=== PATIENT | male | born 1965 | race Caucasian/White ===

== ENCOUNTER 2016-06-10 00:46 | Inpatient (IN) | payer OTHER ==
[2016-06-10] VITALS (52 sets, daily range): BP systolic 57–153; BP diastolic 25–89; PULSE 92–129; RESP 11–24; O2SAT 93–100
[~2016-06-10] VITALS: Ht 182.9 cm; Wt 143.2 kg
[2016-06-10] MEDS: 0.9% Sodium Chloride 1,000 ML IV SCH ×3 (01:06→12:08)
[2016-06-10] MEDS ORDERED: Ondansetron 2 mg/mL 2 mL Inj IVPUSH PRN ×5 (01:10→18:40)
[2016-06-10] MEDS ORDERED: HYDROmorphone 1 mg/mL Inj IVPUSH PRN ×4 (01:10→15:45)
[2016-06-10] MEDS ORDERED: Alum-Mag Hydrox-Simeth 30 mL Suspension PO PRN ×2 (01:10→18:40)
[2016-06-10] MEDS ORDERED: Polyethylene Glycol (PEG) 17 Gm Powder PO PRN ×3 (01:10→18:40)
[2016-06-10] MEDS ORDERED: Lidocaine 4% 4 mL Laryng-O-Jet Top Soln MUC_MEMBRM PRN (01:20)
[2016-06-10] MEDS ORDERED: Sodium Chloride LOK Flush 10 mL Syringe ONE (01:29)
[2016-06-10] MEDS ORDERED: Sodium Bicarb 1 mEq/mL 50 mL Inj ONE (01:29)
[2016-06-10] MEDS: Sodium Bicarb(50 mEq) 8.4% Inj 150 MEQ in Dextrose 5% 1,000 ML IV SCH (01:35)
[2016-06-10 01:37] LABS: BASOPHILS % (AUTO) 0.9 % (0-3); EOSINOPHILS % (AUTO) 4.9 % (0-5); MONOCYTES % (AUTO) 8.2 % (4-12); Mean Corpuscular Hemoglobin 30.2 pg (27.0-35.0); Mean Corpuscular Volume 85.3 fL (81-100); NEUTROPHILS % (AUTO) 56.9 % (40-74); Platelet Count 231 bil/L (150-400)
[2016-06-10] MEDS ORDERED: Lidocaine 2% 6mL Topical Jelly MUC_MEMBRM PRN (01:45)
[2016-06-10 02:02] LABS: INR 0.95 ratio
[2016-06-10] MEDS ORDERED: Glucose 40% Oral Gel 15 Gm Tube PO PRN (02:20)
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
[2016-06-10] MEDS ORDERED: HYDROmorphone 1 mg/mL Inj IVPUSH SCH (05:10)
[2016-06-10] MEDS ORDERED: LISI40TA PO (06:40)
[2016-06-10] MEDS ORDERED: OXYC-466 PO (06:40)
[2016-06-10] MEDS ORDERED: INSU100I25 SQ (06:40)
[2016-06-10] MEDS ORDERED: NPR500T PO (06:40)
[2016-06-10] MEDS ORDERED: ATOR20TA65 PO (06:40)
[2016-06-10] MEDS ORDERED: GABA-502 PO (06:40)
[2016-06-10] MEDS ORDERED: FENO160T14 PO (06:40)
[2016-06-10] MEDS ORDERED: TAMS0.4C98 PO (06:40)
--- NOTE | 2016-06-10 07:31 | NUR ---
Admit Pt arrived to [facility] 250-1 at 0040, pt arrived in severe pain, but able to walk to scale and to bed w/o any assist. Pt is a&ox3, coping well with the severe pain r/t clotted catheter.
--- NOTE | 2016-06-10 07:32 | NUR ---
Transfer/CBI Totals Pt moved to 238-1 r/t severe pain and needs at 0100, catheter finally patent and now draining well with less clots. Catheter continued to be patent for several hours, final output was 13,300ml, input was 12,000ml. Net urine was 1300ml. Pt pain now well managed w/ dilaudid. Placed cpox for safety.
[2016-06-10] MEDS: HYDROmorphone 1 mg/mL Inj IVPUSH SCH ×3 (07:33→15:25)
[2016-06-10] MEDS: Insulin LISPRO 300 Unit/3 mL Inj SUBQ SCH ×3 (08:00→17:30)
[2016-06-10 08:44] LABS: BASOPHILS % (AUTO) 0.6 % (0-3); MONOCYTES % (AUTO) 8.2 % (4-12); Mean Corpuscular Hemoglobin 29.7 pg (27.0-35.0); Mean Corpuscular Volume 87.3 fL (81-100); NEUTROPHILS % (AUTO) 53.4 % (40-74); Platelet Count 175 bil/L (150-400)
[2016-06-10 09:01] LABS: Unsaturated Iron Binding 207.4 ug/dL
[2016-06-10] MEDS: Famotidine Inj 20 MG in IV Premix 1 EACH IV SCH ×2 (09:12→20:30)
[2016-06-10] MEDS ORDERED: Succinylcholine Chloride 20 mg/mL 5 mL Inj ONE (13:45)
[2016-06-10] MEDS ORDERED: Ondansetron 2 mg/mL 2 mL Inj ONE (13:45)
[2016-06-10] MEDS ORDERED: fentaNYL-PF 50 mCg/mL 2 mL Inj ONE (13:45)
[2016-06-10] MEDS ORDERED: Rocuronium 10 mg/mL 5 mL Inj ONE (13:45)
[2016-06-10] MEDS ORDERED: Propofol 10,000 mCg/mL 20 mL Inj ONE (13:45)
[2016-06-10] MEDS ORDERED: Lidocaine PF 1% 30 mL Inj ONE (13:45)
[2016-06-10] MEDS ORDERED: Phenylephrine/NS 100 mCg/mL 10 mL Syringe IVPUSH ONE (13:45)
--- NOTE | 2016-06-10 14:31 | PCM.HPANE ---
Patient Data Surgeon Admitting Provider:Denis Hines MD Attending Provider:Denis Hines MD Primary Care Physician:Fausto Salvador MD Other Provider: Reason for Visit Bladder Mass Ht/WT & BMI Height (Feet): 6 Height (Inches): 0.00 Weight (Kilograms): 134.600 Body Mass Index 40.19 Allergies Coded Allergies: No Known Allergies (Verified Allergy, Unknown, 06/10/16) Past Anesthesia History Anesthesia History: Denies:: Anesthesia Reactions Diabetes History Hx Diabetes?: Yes Current Bedside Blood Glucose: 163 Medications Reported Medications Tamsulosin (Flomax)0.4 Mg Capsule0.4 Mg PO DAILY Ref 0 06/10/16 oxyCODONE-Acetaminophen 10-325 mg 1 Each Tablet1 Tablet PO PRN For Pain Ref 0 06/10/16 Naproxen 500 Mg Clb891 Mg PO BID PRN For Pain Ref 0 06/10/16 Lisinopril 40 Mg Ebmptt86 Mg PO DAILY 30 Days Ref 0 06/10/16 Insulin Detemir (Levemir Flextouch)100 Unit/1 Ml Insuln.[id number] Unit SQ 06/10/16 Gabapentin 300 Mg Fligwyx838 Mg PO DAILY Ref 0 06/10/16 Fenofibrate 160 Mg Mofhjl345 Mg PO DAILY Ref 0 06/10/16 Atorvastatin Calcium 20 Mg Mgafoa96 Mg PO DAILY Ref 0 06/10/16 History History of ENT Problems?: No Hx of Heart Problems?: No Cardiovascular History: Denies:: Hypertension Hx of Respiratory Problem?: Yes Respiratory History: Positive for:: Asthma Hx Neurologic Problems?: Yes Neurological History: Positive for:: Headaches (migraines from high pitched noise) Hx of GI Problems?: No Hx of Problems?: No Male Hx: Denies:: Prostate Problems Hx Musculoskeletal Problems?: No Hx of Psycho/Social Problems?: No Psycho Social History: Denies:: Anxiety Hx Depression Hx Surgeries?: Yes (shoulder surgery 11/28 resection) Hx Any Other Health Problems?: Yes History Blood Transfusions: Positive for:: Accept Blood Products? 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 Category 1B: Patient has history of documented sleep apnea, and HAS received any narcotic , sedative or anesthesia administration during this stay Category 2: Patient has SUSPECTED Obstructive Sleep Apnea, and HAS received any narcotic , sedative or anesthesia administration during this stay. Category 3: Patient has SUSPECTED Obstructive Sleep Apnea and HAS NOT received narcotic, sedative or anesthesia administration during this stay. Category 4: Outpatient in Procedural Areas with known sleep apnea or who screen positive for High Risk via the STOP/BANG questionnaire. Exam Exam General Appearance: Alert, Oriented X3, Cooperative, Moderate Distress HEENT/AIRWAY: MP 4, Neck Movement (20% expected ROM), Mouth Opening (Small) Lungs: Clear to Auscultation Heart: Exam Unremarkable Meds/Labs/Diagnostics Admission Meds Current Medications Sodium Chloride 1,000 ml @ 100 mls/hr Q10H IV Last administered on 06/10/16 12:08; Start 06/10/16 at 01:06 Famotidine/Sodium Chloride/Premix (Pepcid Inj/IV Premix) 50 ml @ 100 mls/hr Q12 IV Last administered on 06/10/16 09:12; Start 06/10/16 at 08:30 Insulin Human Lispro (HumaLOG Insulin Inj) Nutritional Dose to be given pr... [facility] SUBQ Last administered on 06/10/16 12:08; Start 06/10/16 at 08:00 Hydromorphone HCl (Dilaudid Inj) 1 mg Q4H IVPUSH Last administered on 04:06; Start 06/10/16 at 05:10; Stop 06/10/16 at 05:10; Status DC Hydromorphone HCl (Dilaudid Inj) 1 mg Q4H IVPUSH Last administered on 12:12; Start 06/10/16 at 08:00 Bedside Blood Glucose: 163 Labs Test 06/10/16 01:30 06/10/16 07:22 06/10/16 12:37 Prothrombin Time 10.1sec (8.1-12.5) Prothromb Time International Ratio 0.95ratio Activated Partial Thromboplast Time 26.2sec (22.8-33.0) White Blood Count 6.2th/mm3 (3.8-10.1) Red Blood Count 3.70mil/mm3 (4.40-5.80) Mean Corpuscular Volume 87.3fL (81-100) Mean Corpuscular Hemoglobin 29.7pg (27.0-35.0) Mean Corpuscular Hemoglobin Concent 34.1% (32.0-37.0) Red Cell Distribution Width 12.8% (12.3-15.4) Platelet Count 175bil/L (150-400) Neutrophils (%) (Auto) 53.4% (40-74) Lymphocytes (%) (Auto) 32.5% (14-46) Monocytes (%) (Auto) 8.2% (4-12) Eosinophils (%) (Auto) 5.0% (0-5) Basophils (%) (Auto) 0.6% (0-3) Reticulocyte Count,Calculated 1.5% (0.6-2.6) Sodium Level 136mEq/L (134-144) Potassium Level 4.0mEq/L (3.5-5.2) Chloride Level 100mEq/L (97-108) Carbon Dioxide Level 21mmol/L (18-29) Blood Urea Nitrogen 16mg/dL (6-24) Creatinine 0.68mg/dL (0.76-1.27) Estimat Glomerular Filtration Rate 131mL/min (>59) Glucose Level 170mg/dL (60-99) Calcium Level 8.5mg/dL (8.5-10.1) Iron Level 58ug/dL (35-150) Total Iron Binding Capacity 265ug/dL (250-450) Percent Iron Saturation 22%sat (15-50) Unsaturated Iron Binding 207.4ug/dL Ferritin 257ng/mL (30-400) Total Bilirubin 0.5mg/dL (0.0-1.2) Aspartate Amino Transf (AST/SGOT) 66U/L (0-50) Alanine Aminotransferase (ALT/SGPT) 92U/L (0-44) Alkaline Phosphatase 136U/L (25-150) Total Protein 5.9g/dL (6.4-8.4) Albumin 3.3g/dL (3.4-5.0) Hemoglobin 10.8g/dL (13.8-17.2) Hematocrit 31.2% (41.0-50.0) Plan Impression Patient chart reviewed, patient interviewed and anesthestic plan with risks, benefits, and alternatives discussed, and informed consent obtained. ASA Physical Status: ASA3 Severe Disease Anesthetic Support Modalities: [place] Scope Anesthetic Plan: GA Bene/Risks/Altern/Consents: Yes HP Complete Prior to Induction: Yes Other Will do awake " look See " With [place] Scope and decide if to intubate awake or asleep. Khurram Almanza MD Jun 10, 2016 14:31
[2016-06-10] MEDS ORDERED: Lactated Ringer's 1,000 ML IV ONE ×4 (14:32→19:49)
--- NOTE | 2016-06-10 15:13 | NUR ---
to OR Pt taken in bed to OR. Report given to Ana STEVENS IV Addendum: 06/10/16 at 1523 by LISA HODGE RN 1430 pt had episode of bladder fullness and burning. flushed thakkar and able to evacuate 60 mls with dark red clots. continue with bladder irrigation. Pt then stood at bedside for about 10 minutes.
--- NOTE | 2016-06-10 15:24 | NUR ---
Social Work Note - Screening: D/A: The Pt is a 51 y/o male that was directly admitted under observation status from [facility] for a bladder mass. The Pts PCP is MD Fausto Salvador and his insurance is [employer]. EMR reviewed. SW met with the Pt to explain role and discuss discharge planning, telephone number written on white board. The Pt lives independently with his in [place]. The Pt does not have an Advanced Directive, declined paperwork. [facility] involved, [facility] to evaluate Pt 06/10. The Pt denies any needs at this time. SW to follow if needs arise. P: The Pt is not medically stable for discharge, currently being evaluated by [facility] for further medical treatment. The Pt denies any needs at this time. SW to follow if needs arise. Dianna Mulligan, FRESH WORK WRAPPER LAYER Flanging Roll Operator ANGEL Rangel
[2016-06-10] MEDS ORDERED: Lactated Ringer's 500 ML IV PRN (15:42)
[2016-06-10] MEDS ORDERED: Lactated Ringer's 1,000 ML IV SCH ×2 (15:42→17:18)
[2016-06-10] MEDS ORDERED: hydrALAZINE 20 mg/mL Inj IVPUSH PRN (15:45)
[2016-06-10] MEDS ORDERED: Atropine 0.4 mg/mL Inj IVPUSH PRN (15:45)
[2016-06-10] MEDS ORDERED: Labetalol 5 mg/mL 4 mL Inj IV PRN (15:45)
[2016-06-10] MEDS ORDERED: Dexamethasone 4 mg/mL Inj IVPUSH PRN (15:45)
[2016-06-10] MEDS ORDERED: Belladonna Alk-Opium 60 mg Rectal Suppository RECTAL ONE (15:54)
[2016-06-10] MEDS ORDERED: oxyCODONE-Acetamin 5-325 mg Tablet PO PRN (17:20)
[2016-06-10] MEDS ORDERED: MetoCLOpramide 5 mg/mL 2 mL Inj IVPUSH PRN ×2 (17:20→17:25)
[2016-06-10] MEDS ORDERED: Belladonna Alk-Opium 60 mg Rectal Suppository RECTAL PRN (17:20)
[2016-06-10] MEDS ORDERED: diphenhydrAMINE 25 mg Capsule PO PRN (17:20)
[2016-06-10] MEDS: fentaNYL-PF 50 mCg/mL 2 mL Inj IVPUSH PRN ×2 (17:22→17:38)
--- NOTE | 2016-06-10 17:24 | PCM.ANEP1 ---
Post Anesthesia Phase 1 PACU Phase 1 Assessment Vital Signs Vital Signs Date Time Temp Pulse Resp B/P Pulse Ox O2 Delivery O2 Flow Rate FiO2 06/10/16 14:57 36.5 94 18 101/68 96 Room Air Anesthetic Administered: GA Level of Alertness: Awake, talking FRITZ's with Equal Strength: Yes Pain: Yes Pain Scale Score: 8 Nausea or Vomiting: No Oxygen Delivery: Room Air Lungs: Normal Air Movement Khurram Almanza MD Jun 10, 2016 17:24
[2016-06-10] MEDS ORDERED: HYDROmorphone PCA 0.2 mg/mL 30 mL Inj IV PRN (17:25)
--- NOTE | 2016-06-10 18:02 | CONS ---
[address] [address] CONSULTATION REPORT PATIENT: DIANA CROWELL : 1965 MR#: [id number] ADMIT: 06/10/2016 JOB ID: [id number] DATE OF SERVICE: 06/10/2016 REASON FOR CONSULTATION: Bladder mass, gross hematuria with clot retention. HISTORY OF PRESENT ILLNESS: I was contacted last night by the emergency department of [facility] regarding a gentleman who had been in and out of the emergency department with clot retention and obstructing catheters for over 48 hours. Transfer to [facility] was recommended with admission on the hospitalist with consult by Urology. The patient began to have gross hematuria approximately 72 hours ago. He is a nonsmoker. It began with bright red blood with clots and some dysuria. Multiple urinalyses showed hematuria but no sign of infection. He was, however, started on ciprofloxacin. A noncontrast CT scan was performed showing bilateral hydronephrosis with a large bladder mass which was assumed to be blood clot. PAST MEDICAL HISTORY: Reveals insulin-dependent diabetes and hyperlipidemia. He has had some left shoulder surgery. SOCIAL/FAMILY HISTORY: See admission note. EXAMINATION: An obese 51-year-old male in no acute distress. Chest is clear. Normal respiratory effort. Cardiovascular: Sinus rhythm. No murmurs. Abdomen is obese, soft, and nontender. No masses. There is a Weathers catheter in place draining lightly sanguinous urine. IMPRESSION: Gross hematuria with clot retention. Probable bladder cancer, although he has nothing in the way of risk factors. I will plan on taking him to the operating room later today for cystoscopy, declotting, and transurethral resection.
--- NOTE | 2016-06-10 18:20 | NUR ---
Report notified that pt will transfer to CCU following OR procedure. this RN called report to Yamini Yanes RN as pt will on overlock elastic attacher. Belongings brought to this room.
[2016-06-10] MEDS ORDERED: 0.9% Sodium Chloride 1,000 ML IV ONE (18:30)
[2016-06-10] MEDS: EPHEDrine Sulfate 50 mg/mL Inj IVPUSH PRN ×2 (18:35→18:52)
[2016-06-10] MEDS: Lactated Ringer's 1,000 ML IV SCH (18:39)
[2016-06-10] MEDS ORDERED: Senna-Docusate 8.6-50 mg Tablet PO PRN (18:40)
[2016-06-10] MEDS: Phenylephrine 10,000 mCg/mL Inj IVPUSH PRN ×4 (18:55→19:06)
[2016-06-10] MEDS: Phenylephrine Inj 20,000 MCG in 0.9% Sodium Chloride 248 ML IV SCH (19:05)
--- NOTE | 2016-06-10 19:53 | OP ---
[address] [address] OPERATIVE REPORT PATIENT: DIANA CROWELL : 1965 MR#: [id number] ADMIT: 06/10/2016 JOB ID: [id number] DATE OF SURGERY: 06/10/2016 SURGEON: Lizzy Curry MD PREOPERATIVE DIAGNOSIS(ES): 1. Gross hematuria. 2. Clot retention. 3. Bladder cancer. POSTOPERATIVE DIAGNOSIS(ES): 1. Gross hematuria. 2. Clot retention. 3. Bladder cancer. PROCEDURE: 1. Cystoscopy. 2. Declotting and transurethral resection of bladder tumor, large. ANESTHESIA: General anesthetic, Dr. Almanza. DESCRIPTION OF PROCEDURE: Under general anesthetic, the patient was placed in lithotomy position and genitalia prepped and draped in a sterile manner. The urethra was dilated to 30-Pashto with Pedro sounds. A 26-Pashto Benavidez-type resectoscope was introduced into the bladder. There was a large amount of clot in the bladder and the bladder was filled with papillary tumor, minimum dimension 10 cm. The tumor appeared to be arising mostly from the right side of the bladder. There was diffuse bleeding from multiple points on the tumor. Resection was begun at the left side of the tumor. The tumor appeared to be muscle invasive and had a significant mucinous component. After approximately 45 minutes of resecting, it was clear that I could not obtain a T0 resection. At this point, the chips were removed from the bladder and a roller ball cautery was used to achieve arterial hemostasis. There was still significant venous bleeding but no visible arterial bleeding. A 24-Pashto 3-way Weathers catheter was inserted into the bladder and attached to sorbitol irrigations. The patient tolerated the procedure well. The estimated blood loss was at least 300 cc. The patient left the operating room, with lightly sanguinous sorbitol irrigations. Upon extubation with the patient struggling, bladder irrigations became markedly more sanguinous with passage of several clots. The patient will be typed and crossed. Serial hematocrits will be obtained with appropriate transfusion. I will plan on him being seen by Medical Oncology as I strongly suspect this will be a high-grade muscle invasive bladder cancer.
[2016-06-10 20:25] LABS: BASOPHILS % (AUTO) 0.5 % (0-3); EOSINOPHILS % (AUTO) 0.7 % (0-5); MONOCYTES % (AUTO) 6.8 % (4-12); Mean Corpuscular Hemoglobin 29.7 pg (27.0-35.0); Mean Corpuscular Volume 87.2 fL (81-100); NEUTROPHILS % (AUTO) 81.7 % (40-74); Platelet Count 310 bil/L (150-400)
[2016-06-10] MEDS: fentaNYL 2,500 mCg/250 mL 2,500 MCG in IV Premix 1 EACH IV SCH (20:38)
[2016-06-10] MEDS: Propofol Inj 1,000,000 MCG in IV Premix 1 EACH IV SCH (20:38)
[2016-06-10 20:40] LABS: BASOPHILS % (AUTO) 0.7 % (0-3); EOSINOPHILS % (AUTO) 0.6 % (0-5); Mean Corpuscular Hemoglobin 29.4 pg (27.0-35.0); Mean Corpuscular Volume 87.5 fL (81-100); NEUTROPHILS % (AUTO) 77.6 % (40-74); Platelet Count 323 bil/L (150-400)
[2016-06-10] MEDS ORDERED: Norepineph 8,000 mCg/250 mL NS 8,000 MCG in IV Premix 1 EACH IV SCH (20:41)
[2016-06-10] MEDS ORDERED: Propofol 10,000 mCg/mL 100 mL Inj ONE (20:49)
[2016-06-10 20:52] LABS: Magnesium 1.5 mg/dL (1.6-2.6)
[2016-06-10 20:55] LABS: Creatine Kinase 172 U/L (21-232)
[2016-06-10 20:59] LABS: INR 1.05 ratio
[2016-06-10] MEDS ORDERED: Insulin GLARgine 100 Unit/mL Syringe SUBQ SCH (21:00)
--- NOTE | 2016-06-10 21:10 | DRSVH ---
PROCEDURE: X-RAY CHEST ONE VIEW, PORTABLE ([id number]) INDICATIONS: confirm line placement TECHNIQUE: One view of the chest was acquired. COMPARISON: None. FINDINGS: Patient is markedly rotated. Surgical changes and devices: A central venous catheter is projected over the expected region of the SVC. However, the patient is markedly rotated, limiting evaluation. Lungs and pleura: No pleural effusions or pneumothorax. Lungs are clear. Mediastinum: Mediastinal contours are poorly characterized on this rotated view. Bones and chest wall: No suspicious bony lesions. Overlying soft tissues appear unremarkable. IMPRESSION: 1. Markedly rotated patient. Central venous catheter is projected over the expected region of the SVC . However, repeat study without rotation is recommended. Dictated by: Lois Watt M.D. on 06/10/2016 at 21:07 Approved by: Lois Watt M.D. on 06/10/2016 at 21:09
[2016-06-10] MEDS ORDERED: Heparin 1,000 Unit/mL 10 mL Inj ONE ×2 (21:17→23:11)
[2016-06-10] MEDS ORDERED: 0.9% Sodium Chloride 1,000 ML ONE ×2 (21:17→23:11)
--- NOTE | 2016-06-10 21:21 | ABG ---
DateTimeAnalyzed 21:17:00 -_ pH ____7.208 - 7.350 7.450 pCO2 ___35.2__ -mmHg 35.0 45.0 pO2 489 -mmHg 69.0 116 HCO3- ___13.5__ -mmol/L 22.0 26.0 ABE __-13.4__ -mmol/L -2.0 2.0 tHb ___13.9__ -g/dL O2Hb ___98.0__ -% COHb ____0.5__ -% MetHb ____1.0__ -% sO2 ___99.5__ -% 25.0 FIO2 __100.0__ -% PEEP ____5.0__ -cmH2O Set_RR ___18.0__ -b/min Vt __500.0__ -L Drawn By MK - Date/Time Notified____ 21:21:00 -_ Spontaneous_RR ___18.0__ -b/min Oxygen Device 1 VENTILATOR - Notified By MK - Notified Whom sullenburger - B 756 -mmHg tO2 ___20.3__ -Vol% Enrico test N/A -
[2016-06-10 21:27] LABS: BASOPHILS % (AUTO) 0.7 % (0-3); EOSINOPHILS % (AUTO) 0.4 % (0-5); MONOCYTES % (AUTO) 8.5 % (4-12); Mean Corpuscular Hemoglobin 29.9 pg (27.0-35.0); Mean Corpuscular Volume 86.6 fL (81-100); NEUTROPHILS % (AUTO) 77.8 % (40-74); Platelet Count 261 bil/L (150-400)
[2016-06-10 21:43] LABS: INR 1.06 ratio
[2016-06-10] MEDS: Norepinephrine 8,000 mCg/250 mL D5W Premix IV SCH (22:05)
--- NOTE | 2016-06-10 23:04 | PCM.PNMED ---
Subjective Date of Service Jun 10, 2016 Subjective The patient was seen preoperatively and was in no apparent distress with continuous bladder irrigation in progress. He had no new complaints. Exam Vital Signs Vital Sign - Last Date Time Temp Pulse Resp B/P Pulse Ox O2 Delivery O2 Flow Rate FiO2 06/10/16 21:40 94/25 INTUBATED WITH BAGGING 06/10/16 21:25 127 100 06/10/16 20:15 35.7 06/10/16 19:40 18 06/10/16 18:20 4 Exam General: The patient was in no apparent distress lying supine with continuous bladder irrigation ongoing. HEENT: Head is atraumatic and normocephalic. Eyes: Pupils are equally round and reactive to light and accommodation. Extraocular muscles are intact. Sclera are white, anicteric. Subconjunctival mucosa is pink. Ears and nose are unremarkable. Oropharynx: There is no mucosal lesions, there is no thrush, there is no pharyngitis. Neck: Is supple, there are no nodes, or masses or tenderness. Chest: Is clear to auscultation and percussion. There are no rales, rhonchi, wheezes or rubs. Heart: Rate, rhythm is regular. There is no murmur, rub or gallop. Abdomen: Good bowel sounds are present. Abdomen is soft, nontender, no organomegaly or masses were appreciated. Extremities: Are symmetrical and well perfused. There is no edema, there is no cellulitis, no rash. Neurologic: There are no focal neurological deficits. Cranial nerves II through XII are intact. There are no sensory or motor deficits. Psychiatric: Patients mood is calm and shows no sign of agitation. Genital: A 3-way Weathers was in place for continuous bladder irrigation. Rectal: Deferred Lab and Diagnostics Result Diagram: 06/10/16211906/10/162119 X-Rays, CTs and MRIs PROCEDURE: X-RAY CHEST ONE VIEW, PORTABLE ([id number]) INDICATIONS: confirm line placement TECHNIQUE: One view of the chest was acquired. COMPARISON: None. FINDINGS: Patient is markedly rotated. Surgical changes and devices: A central venous catheter is projected over the expected region of the SVC. However, the patient is markedly rotated, limiting evaluation. Lungs and pleura: No pleural effusions or pneumothorax. Lungs are clear. Mediastinum: Mediastinal contours are poorly characterized on this rotated view. Bones and chest wall: No suspicious bony lesions. Overlying soft tissues appear unremarkable. IMPRESSION: 1. Markedly rotated patient. Central venous catheter is projected over the expected region of the SVC. However, repeat study without rotation is recommended. Dictated by: Lois Watt M.D. on 06/10/2016 at 21:07 Approved by: Lois Watt M.D. on 06/10/2016 at 21:09 Assessment & Plan Patient is a 51 y.o. 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 Past medical history of hyperlipidemia, DMII insulin dependent. Who presents from [facility], direct admit, for gross hematuria and dysuria. 1. Hematuria, acute - CT scan done at [facility] showed presence of right sided bladder mass 10x5.8 cm heterogeneous mass with punctate and peripheral calcifications, likely source of bleeding - Continue IVF hydration NS @ 100 mls.hr - CBC shows normocytic anemia Hgb 12.5 - CMP ordered, Elevated LFTs, elevated blood glucose - Trend H/H Q4 - Cross type and Match - UA with culture ordered - Urine EO's ordered r/o concurrent interstitial nephritis - Urology consulted from [facility], Dr. Curry, agrees with Admit and took the patient to surgery today and findings are as follows: "PREOPERATIVE DIAGNOSIS(ES): 1. Gross hematuria. 2. Clot retention. 3. Bladder cancer. POSTOPERATIVE DIAGNOSIS(ES): 1. Gross hematuria. 2. Clot retention. 3. Bladder cancer. PROCEDURE: 1. Cystoscopy. 2. Declotting and transurethral resection of bladder tumor, large." - He will have serial H&H monitoring and blood transfusions as needed. - Oncology will be consulted 2. Anemia, secondary to acute blood loss anemia - Source of loss is from Bladder mass and hematuria - Iron studies ordered to r/o other causes - Trend H/H as above 3. Transamnitis, chronicity unknown - Given patient BMI, history of DM, and fatty liver seen on CT, likely due to fatty liver disease - Continue to monitor - Repeat CMP as above Chronic Conditions Insulin dependent Type II DM - Patient's home dose of long acting insulin 65 units, Hold Home dose - Start 30 units Lantus HS - Med correctional scale ordered Pain Evaluation: Adequate Pain Control GI Prophylaxis: H2 leanna Resuscitation Status: CPR: Attempt Resuscitation Pancho Payne MD Jun 10, 2016 23:03
[2016-06-11] VITALS (39 sets, daily range): BP systolic 62–165; BP diastolic 38–83; PULSE 96–139; RESP 18–22; O2SAT 40–100
[2016-06-11] MEDS: Phenylephrine Inj 20,000 MCG in 0.9% Sodium Chloride 248 ML IV SCH ×5 (00:03→19:50)
[2016-06-11] MEDS ORDERED: 0.9% Sodium Chloride 500 ML ONE (00:21)
--- NOTE | 2016-06-11 01:55 | ABG ---
DateTimeAnalyzed 01:52:00 -_ pH ____7.110 - 7.350 7.450 pCO2 ___42.0__ -mmHg 35.0 45.0 pO2 169 -mmHg 69.0 116 HCO3- ___12.8__ -mmol/L 22.0 26.0 ABE __-15.9__ -mmol/L -2.0 2.0 tHb ___11.4__ -g/dL O2Hb ___96.8__ -% COHb ____0.6__ -% MetHb ____1.3__ -% sO2 ___98.7__ -% 25.0 FIO2 ___60.0__ -% PEEP ____5.0__ -cmH2O Set_RR ___18.0__ -b/min Vt __610.0__ -L Drawn By MK - Date/Time Notified____ 01:55:00 -_ Spontaneous_RR ___18.0__ -b/min Oxygen Device 1 VENTILATOR - Notified By MK - Notified Whom sullenburger - B 758 -mmHg tO2 ___15.9__ -Vol% Enrico test N/A -
--- NOTE | 2016-06-11 02:09 | PCM.ANEP2 ---
Post Anesthesia Evaluation ASA/CMS Post Anesthesia VS in Patient's Normal Range?: No (on vasopressor support) Resp Stable; Airway Patent?: No (intubated) CV Function & Hydration Stable: No Mental Status Recovered?: No (sedated) Chuck Gutierrez MD Jun 11, 2016 02:09
--- NOTE | 2016-06-11 02:09 | PCM.ANEP1 ---
Post Anesthesia Phase 1 PACU Phase 1 Assessment Vital Signs Vital Signs Date Time Temp Pulse Resp B/P Pulse Ox O2 Delivery O2 Flow Rate FiO2 06/11/16 01:38 133 83/47 99 60 06/10/16 21:40 94/25 INTUBATED WITH BAGGING 06/10/16 21:35 67/39 INTUBATED WITH BAGGING 06/10/16 21:30 78/46 INTUBATED WITH BAGGING 06/10/16 21:25 127 83/51 100 Mechanical Ventilator 06/10/16 21:20 121 108/65 100 Mechanical Ventilator 06/10/16 21:15 120 109/62 100 Mechanical Ventilator 06/10/16 21:10 120 118/70 100 Mechanical Ventilator 06/10/16 21:05 120 133/72 100 Mechanical Ventilator 06/10/16 21:00 122 132/63 100 Mechanical Ventilator 06/10/16 20:55 124 70/47 100 Mechanical Ventilator 06/10/16 20:50 119 93/44 100 Mechanical Ventilator 06/10/16 20:45 125 105/47 100 Mechanical Ventilator 06/10/16 20:40 124 150/72 100 Mechanical Ventilator 06/10/16 20:35 120 104/44 100 Mechanical Ventilator 06/10/16 20:30 117 100 Mechanical Ventilator 06/10/16 20:25 122 65/34 100 06/10/16 20:20 120 108/54 100 06/10/16 20:15 35.7 129 96/48 100 06/10/16 20:10 122 87/41 100 06/10/16 20:05 119 98/46 100 06/10/16 20:00 122 81/33 100 06/10/16 19:55 122 82/40 06/10/16 19:50 119 65/37 06/10/16 19:45 118 81/42 100 06/10/16 19:40 118 18 92/49 100 06/10/16 19:35 117 19 97/56 100 06/10/16 19:30 119 19 87/48 100 06/10/16 19:25 36.4 118 18 94/50 100 06/10/16 19:20 120 18 67/42 100 06/10/16 19:15 121 16 71/43 100 06/10/16 19:10 35.7 120 14 95/42 100 06/10/16 19:05 123 21 86/48 100 06/10/16 18:55 125 24 57/43 100 06/10/16 18:50 124 19 72/25 100 06/10/16 18:45 122 19 79/41 100 06/10/16 18:40 117 21 66/39 100 06/10/16 18:35 112 11 100 06/10/16 18:30 112 12 88/44 100 06/10/16 18:25 112 19 107/83 100 06/10/16 18:20 114 81/45 98 Nasal Cannula 4 06/10/16 18:10 112 95/48 100 Nasal Cannula 4 Anesthetic Administered: GA Level of Alertness: Drowsy, not talking (intubated, sedated) Nausea or Vomiting: No Airway Device: Endotrachial Tube Oxygen Delivery: Mechanical Ventilator Lungs: Normal Air Movement Summary Patient intubated, sedated, arterial line and cvl Chuck Gutierrez MD Jun 11, 2016 02:08
[2016-06-11] MEDS: Vasopressin Inj 20 UNIT in 0.9% Sodium Chloride 100 ML IV SCH ×2 (02:19→13:26)
[2016-06-11] MEDS: DOBUTamine 500 mg/250 D5W 500,000 MCG in IV Premix 1 EACH IV SCH (02:19)
[2016-06-11 02:20] LABS: Mean Corpuscular Hemoglobin 29.5 pg (27.0-35.0); Mean Corpuscular Volume 87.3 fL (81-100); Platelet Count 203 bil/L (150-400)
[2016-06-11] MEDS ORDERED: Sodium Bicarb (50 mEq) 8.4% 1 mEq/mL 50 mL Syringe IVPUSH ONE ×2 (02:30→03:05)
[2016-06-11] MEDS ORDERED: 0.9% Sodium Chloride 1,000 ML IV ONE (02:30)
[2016-06-11] MEDS: Midazolam Inj 100 MG in IV Premix 1 EACH IV SCH (02:35)
[2016-06-11] MEDS ORDERED: Vancomycin Inj 2,000 MG in 0.9% Sodium Chloride 500 ML IV ONE (02:35)
[2016-06-11 02:38] LABS: INR 1.25 ratio
[2016-06-11 02:39] LABS: BASOPHILS % (AUTO) 0 % (0-3); EOSINOPHILS % (AUTO) 0 % (0-5); MONOCYTES % (AUTO) 4 % (4-12); NEUTROPHILS % (AUTO) 70 % (40-74)
[2016-06-11 02:43] LABS: Magnesium 1.7 mg/dL (1.6-2.6); Phosphorus 9.4 mg/dL (2.5-4.9)
[2016-06-11] MEDS ORDERED: Insulin Human REGular-Omnicell 100 Unit/mL IV ONE (03:05)
--- NOTE | 2016-06-11 03:14 | PROCED ---
[address] [address] PROCEDURE NOTE PATIENT: DIANA CROWELL : 1965 MR#: [id number] ADMIT: 06/10/2016 JOB ID: [id number] DATE OF SERVICE: PREOPERATIVE DIAGNOSIS(ES): POSTOPERATIVE DIAGNOSIS(ES): SURGEON: PROCEDURE NOTE: This patient was being acutely resuscitated in the PACU when all of a sudden the patient became unresponsive and a Code Blue was called. Decision was made to place an endotracheal tube for invasive ventilation secondary to patient's acute respiratory failure. As the patient was already significantly obtunded, the patient did not require significant sedation. Also, the patient was hemodynamically unstable and would not be able to tolerate significant sedation. The patient was given 1 mg of Versed and an awake look was taken with the GlideScope #4 blade. After visualization of the vocal cords succinylcholine was administered and an 8-0 Hi-Lo cuff endotracheal tube was passed. Qualitative end-tidal CO2 was achieved and the patient's vital signs remained at 100% oxygen saturation during the procedure. Chest x-ray was obtained later on to confirm tube placement. SHARLENE
--- NOTE | 2016-06-11 03:22 | PROCED ---
[address] [address] PROCEDURE NOTE PATIENT: DIANA CROWELL : 1965 MR#: [id number] ADMIT: 06/10/2016 JOB ID: [id number] DATE OF SERVICE: PREOPERATIVE DIAGNOSIS(ES): POSTOPERATIVE DIAGNOSIS(ES): SURGEON: PROCEDURE NOTE: I was requested by the hospitalist to place a central venous line for infusion of radioactive substances and blood products in this hemodynamically unstable patient who is postoperative from a TURBT and having extensive hemorrhage from the Weathers catheter. When I saw the patient in the PACU he was hypotensive and showing signs of decreased mentation. Decision was made to place a central venous line. The patient was prepped and draped using full barrier precautions. The right IJ was identified using the ultrasound probe and 1% lidocaine was used to create a skin wheal. The internal jugular vein was cannulated using an 18-gauge needle, through which a guidewire was advanced. Guidewire placement inside the IJ was confirmed with ultrasound probe. A dilator was introduced over the guidewire, after which an 8-Swedish double lumen central venous catheter was advanced over the guidewire. The guidewire was removed and catheter was secured at 16 cm. The patient tolerated the procedure well. Chest x-ray is pending to confirm line placement.
[2016-06-11] MEDS: Piperacillin-Tazo 3.375 Gm Inj 3.375 GM in Dextrose 5% Minibag Plus 50 ML IV SCH ×3 (03:44→17:36)
[2016-06-11 03:49] LABS: BASOPHILS % (AUTO) 0.2 % (0-3); EOSINOPHILS % (AUTO) 0.2 % (0-5); MONOCYTES % (AUTO) 10.4 % (4-12); Mean Corpuscular Hemoglobin 29.1 pg (27.0-35.0); Mean Corpuscular Volume 87.4 fL (81-100); NEUTROPHILS % (AUTO) 79.8 % (40-74); Platelet Count 120 bil/L (150-400)
[2016-06-11 04:06] LABS: INR 1.26 ratio
[2016-06-11 04:10] LABS: Magnesium 1.3 mg/dL (1.6-2.6); Phosphorus 7.4 mg/dL (2.5-4.9)
[2016-06-11] MEDS: Cisatracurium Inj 200,000 MCG in 0.9% Sodium Chloride-Pha MIX 100 ML IV SCH ×3 (04:12→19:41)
--- NOTE | 2016-06-11 04:12 | ABG ---
DateTimeAnalyzed 04:09:00 -_ pH ____7.228 - 7.350 7.450 pCO2 ___39.0__ -mmHg 35.0 45.0 pO2 ___95.3__ -mmHg 69.0 116 HCO3- ___15.7__ -mmol/L 22.0 26.0 ABE __-10.9__ -mmol/L -2.0 2.0 tHb ___11.6__ -g/dL O2Hb ___95.3__ -% COHb ____0.9__ -% MetHb ____1.3__ -% sO2 ___97.4__ -% 25.0 FIO2 ___40.0__ -% PEEP ____5.0__ -cmH2O Set_RR ___18.0__ -b/min Vt __550.0__ -L Drawn By MK - Spontaneous_RR ___18.0__ -b/min Oxygen Device 1 VENTILATOR - Notified By sullenburger - B 758 -mmHg tO2 ___15.7__ -Vol% Enrico test N/A -
[2016-06-11] MEDS ORDERED: Calcium GLUCOnate 10% (Gm) 1 Gm/10 mL Inj IVPUSH PRN (04:15)
[2016-06-11] MEDS ORDERED: Calcium GLUCO 10% (Gm) Inj 1 GM in 0.9% Sodium Chloride 50 ML IV ONE (04:25)
[2016-06-11] MEDS ORDERED: 0.9% Sodium Chloride 2,000 ML ONE (04:27)
[2016-06-11] MEDS ORDERED: Heparin 1,000 Unit/mL 10 mL Inj ONE (04:27)
[2016-06-11] MEDS: Norepinephrine 8,000 mCg/250 mL D5W Premix IV SCH ×2 (04:29→07:48)
[2016-06-11] MEDS: Sodium Bicarb(50 mEq) 8.4% Inj 150 MEQ in Dextrose 5% 1,000 ML IV SCH ×3 (05:08→19:50)
--- NOTE | 2016-06-11 05:33 | DRSVH ---
PROCEDURE: EMBOLIZATION OF BLEED INDICATIONS: Bleeding bladder tumor COMPARISON: None. Technique: 1. Right pelvic arteriogram. 2. Right internal iliac arteriogram. 3. Embolization of multiple secondary and tertiary right internal iliac arteries. 4. Completion arteriogram. 2 physician consent was obtained. The patient was placed in a supine position on the angiography tabl e. General anesthesia and cardiorespiratory monitoring was provided by the anesthesiology service. 1% lidocaine was used to anesthetize the skin over the area of interest. Under ultrasound guidance, the left common femoral artery was accessed in a retrograde fashion with a micropuncture kit. An 035 wir e was advanced into the aorta and the micropuncture sheath was exchanged for a 4 Uzbek sheath. The 4 Uzbek sheath was upsized to a 5 Uzbek sheath. A 5 Uzbek Shawn catheter was advanced over the aortic bifurcation and a Glidewire was advanced into the right internal iliac artery. Multiple subselective arteriograms were performed for secondary, tertiary, infarction or branches of the right internal il iac artery. Embolization was performed with 100-305 100-700 particles in multiple secondary and ter tiary branches of the right internal iliac artery. Despite embolization, a persistent bleed was visua lized. Next, 2 2 mm x 3 mm embolization coils were deployed within the first branch of the right inte rnal iliac artery. A 3 mm x 4 mm embolization coil was also inadvertently deployed within the inferio r gluteal artery. Completion arteriogram demonstrated hemostasis of the extravasated vessel. The cath eter was removed, the sheath was removed, and external closure device was deployed at the left common femoral artery, and hemostasis was achieved. FINDINGS: Initial arteriogram demonstrated extravasation of a distal tertiary branch of the right in ternal iliac artery. Despite multiple attempts, it was difficult to identify the feeding artery. Mult iple embolization attempts were undertaken before hemostasis was achieved via coil embolization of th e first branch of the right internal iliac artery. IMPRESSION: 1. Status post particle and coil embolization of an extravasating branch of the right internal iliac artery with successful hemostasis. Dictated by: Lois Watt M.D. on 06/11/2016 at 5:19 Approved by: Lois Watt M.D. on 06/11/2016 at 5:32
[2016-06-11] MEDS ORDERED: CeFAZolin 2 Gm/50 mL D5W IV Premix IV ONE (06:00)
--- NOTE | 2016-06-11 06:43 | PCM.PNMED ---
Subjective Date of Service Jun 11, 2016 Subjective Overnight events. Sign out received at beginning of shift. Code chapo called while patient was in PACU. Upon arrival patient with pulse and airway being secured by anesthesia. Anesthesia and urology present and ancillary staff. Patient hypotensive and phenylephrine transitioned to norepinephrine. Massive transfusion protocol initiated d/t suspected hypovolemic shock. 4 units pRBC given in the PACU. Interventional radiology was contacted and patient transferred to laborer ammunition assembly for embolization. 2 additional units pRBCs given in addition to albumin during procedure. Patient transferred to CCU after procedure with norepinephrine held while waiting for pharmacy to retrieve additional bag. Pressures immediately dropped. Norepinephrine was restarted in addition to vasopressin and dobutamine. CBI was stopped and thakkar clamped for approximately 30 minutes. Stabilization of blood pressure obtained. Thakkar was unclamped with associated blood pressure drop and blood noted from thakkar. With initial BP drop additional product given. Despite additional pRBC administered H&H continued to drop. Interventional radiology and urology notified of worsening vital signs and increase of pressor requirement. Decision made to return to [employer] for additional embolization. Of note following return of patient from [employer], increase in abdominal distension concerning for hemorrhage and / or bladder rupture. Patient at this point no stable enough for CT scan. Prior to return to lab[employer] assembly 12 units pRBCs, FFP, cryoprecipitate and platelets were given. Exam Vital Signs Vital Sign - Last Date Time Temp Pulse Resp B/P Pulse Ox O2 Delivery O2 Flow Rate FiO2 06/11/16 04:15 136 109/65 99 40 06/11/16 04:00 37.2 19 Mechanical Ventilator 06/10/16 18:20 4 Intake and Output 06/10/16 06/10/16 06/11/16 Cumulative From/Thru 15:00 23:00 07:00 06/10/16 00:53 - 06/10/16 21:30 Intake Total 352 ml 5350 ml 5702 ml Output Total 32489 ml 510 ml 12786 ml Balance -96190 ml 4840 ml -9908 ml Intake Oral 0 ml 0 ml IV Total 352 ml 2350 ml 2702 ml Autotransfusion 2400 ml 2400 ml Packed Cells 600 ml 600 ml Output Urine Total 30132 ml 210 ml 02771 ml Estimated Blood Loss 300 ml 300 ml # Bowel Movements 0 0 Lab and Diagnostics Result Diagram: 06/11/16 0335 06/11/16 0335 X-Rays, CTs and MRIs PROCEDURE: X-RAY CHEST ONE VIEW, PORTABLE ([id number]) INDICATIONS: confirm line placement TECHNIQUE: One view of the chest was acquired. COMPARISON: None. FINDINGS: Patient is markedly rotated. Surgical changes and devices: A central venous catheter is projected over the expected region of the SVC. However, the patient is markedly rotated, limiting evaluation. Lungs and pleura: No pleural effusions or pneumothorax. Lungs are clear. Mediastinum: Mediastinal contours are poorly characterized on this rotated view. Bones and chest wall: No suspicious bony lesions. Overlying soft tissues appear unremarkable. IMPRESSION: 1. Markedly rotated patient. Central venous catheter is projected over the expected region of the SVC. However, repeat study without rotation is recommended. Dictated by: Lois Watt M.D. on 06/10/2016 at 21:07 Approved by: Lois Watt M.D. on 06/10/2016 at 21:09 Assessment & Plan Patient is a 51 y.o. white male who is an [employer] with [place], [place]ha, Leah, he currently work in a [employer]. Past medical history of hyperlipidemia, DMII insulin dependent. Who presents from [facility], direct admit, for gross hematuria and dysuria. Acute respiratory failure, airway protection -secondary to hypovolemic shock -intubation by anesthesia in PACI -sedation with midaz / fentanyl, unable to sedate with propofol given hypotension -cisatracuruim given following rocuronium, as patient unable to sedate fully in the acute setting in order to maintain access and airway -consider discontinuation of paralytics Hypovolemic shock, acute -secondary to acute blood loss anemia following bladder tumor resection -continue norepinephrine, vasopressin and dobutamine -some concern for CHF given massive fluid resuscitation - wean dobutamine as tolerated -MAP goal >65 Acute blood loss anemia, acute -secondary to hematuria in the setting of bladder tumor resection -goal Hgb 8-9 -q2hr H&H following second embolization procedure -4 units to remain in house at all times -AM team to consult surgery / urology regarding cystectomy Elevated glucose, acute -initiate insulin gtt -hold glargine and SSI Abdominal distention, acute -worsening, concern for intraabdominal hemorage vs rupture bladder -CT non-contrast pending (large contrast load with embolization) Plan as below prior to acute clinical change copy from 06/10 1. Hematuria, acute - CT scan done at [facility] showed presence of right sided bladder mass 10x5.8 cm heterogeneous mass with punctate and peripheral calcifications, likely source of bleeding - Continue IVF hydration NS @ 100 mls.hr - CBC shows normocytic anemia Hgb 12.5 - CMP ordered, Elevated LFTs, elevated blood glucose - Trend H/H Q4 - Cross type and Match - UA with culture ordered - Urine EO's ordered r/o concurrent interstitial nephritis - Urology consulted from [facility], Dr. Curry, agrees with Admit and took the patient to surgery today and findings are as follows: "PREOPERATIVE DIAGNOSIS(ES): 1. Gross hematuria. 2. Clot retention. 3. Bladder cancer. POSTOPERATIVE DIAGNOSIS(ES): 1. Gross hematuria. 2. Clot retention. 3. Bladder cancer. PROCEDURE: 1. Cystoscopy. 2. Declotting and transurethral resection of bladder tumor, large." - He will have serial H&H monitoring and blood transfusions as needed. - Oncology will be consulted 2. Anemia, secondary to acute blood loss anemia - Source of loss is from Bladder mass and hematuria - Iron studies ordered to r/o other causes - Trend H/H as above 3. Transamnitis, chronicity unknown - Given patient BMI, history of DM, and fatty liver seen on CT, likely due to fatty liver disease - Continue to monitor - Repeat CMP as above Chronic Conditions Insulin dependent Type II DM - Patient's home dose of long acting insulin 65 units, Hold Home dose - Start 30 units Lantus HS - Med correctional scale ordered GI Prophylaxis: H2 leanna VTE Mechanical Devices: Intermittant Pneumatic CD Resuscitation Status: CPR: Attempt Resuscitation Honey Armenta DO Jun 11, 2016 06:43
[2016-06-11] MEDS: 0.9% Sodium Chloride 1,000 ML IV SCH ×2 (07:06→17:06)
[2016-06-11] MEDS ORDERED: 0.9% Sodium Chloride 250 ML ONE (07:22)
[2016-06-11 07:27] LABS: Mean Corpuscular Hemoglobin 29.1 pg (27.0-35.0); Mean Corpuscular Volume 85.6 fL (81-100)
--- NOTE | 2016-06-11 07:30 | PCM.ANEP2 ---
Post Anesthesia Evaluation ASA/CMS Post Anesthesia VS in Patient's Normal Range?: No Resp Stable; Airway Patent?: No CV Function & Hydration Stable: No Mental Status Recovered?: No Additional Comments Patient intubated on ventilator Khurram Almanza MD Jun 11, 2016 07:30
--- NOTE | 2016-06-11 07:32 | PCM.ANEP1 ---
Post Anesthesia Phase 1 PACU Phase 1 Assessment Vital Signs Vital Signs Date Time Temp Pulse Resp B/P Pulse Ox O2 Delivery O2 Flow Rate FiO2 06/11/16 04:15 136 109/65 99 40 06/11/16 04:00 37.2 134 19 114/62 98 Mechanical Ventilator 40 06/11/16 02:09 Mechanical Ventilator 06/11/16 01:45 132 19 87/45 06/11/16 01:38 133 83/47 99 60 06/11/16 01:30 37.0 133 21 84/46 100 Mechanical Ventilator 40 06/11/16 01:30 133 21 83/47 06/11/16 01:30 Ventilator Anesthetic Administered: GA Level of Alertness: Drowsy, not talking Nausea or Vomiting: No Airway Device: Endotrachial Tube Oxygen Delivery: Mechanical Ventilator Lungs: Normal Air Movement Summary Patient transported back to ICU on monitors, intubated, sedated, VSS. Report given to Chuck Pelaez MD Jun 11, 2016 07:32
--- NOTE | 2016-06-11 07:32 | PCM.ANEP2 ---
Post Anesthesia Evaluation ASA/CMS Post Anesthesia VS in Patient's Normal Range?: No Resp Stable; Airway Patent?: No CV Function & Hydration Stable: No Mental Status Recovered?: No Additional Comments Patient is intubated and sedated Chuck Gutierrez MD Jun 11, 2016 07:32
--- NOTE | 2016-06-11 08:03 | NUR ---
P) Pt. lost pulse in PACU, code called, severe bleeding in thakkar, pt. taken to sleep lab technician from PACU for embolization of bladder bleeding. Came to CCU at approx. 0130, hypotensive with norepinephrine running, admitted to 2011. BP continued to drop requiring more pressors , pt. became severely agitated on waking, requiring Nimbex to keep him in bed, labs continued to show decline, pt. given more blood and ffp. Urine continued to be very bloody, sleep lab technician and anesthesia called back i and pt. was taken back to the sleep lab technician just after 0500. I) Meds and blood products given per 's orders, minute monitoring og BP and respiratory status. E) Pt. came back from sleep lab technician at approx. 0700, urine much more clear, per report interior iliac stent embolized.
[2016-06-11 08:25] LABS: Magnesium 1.4 mg/dL (1.6-2.6)
[2016-06-11] MEDS ORDERED: Vancomycin Dose per Pharmacist XX SCH (08:30)
[2016-06-11] MEDS ORDERED: Magnesium Sulfate 2 Gm/50 mL Water Premix IV ONE (08:31)
[2016-06-11] MEDS: Famotidine Inj 20 MG in IV Premix 1 EACH IV SCH ×2 (08:40→21:44)
[2016-06-11] MEDS ORDERED: Calcium GLUCO 10% (Gm) Inj 2 GM in 0.9% Sodium Chloride 100 ML IV ONE (09:25)
--- NOTE | 2016-06-11 09:31 | DRSVH ---
PROCEDURE: X-RAY CHEST ONE VIEW, PORTABLE ([id number]) INDICATIONS: ET TUBE PLACEMENT TECHNIQUE: One view of the chest was acquired. COMPARISON: [facility], XA, EMBOLIZATION OF BLEED, 06/11/2016, 5:50. FINDINGS: Surgical changes and devices: ETT has been placed tip at the level of the abdelrahman. Right IJ CVL prese nt tip projected over the medial lower SVC. Lungs and pleura: No pleural effusions or pneumothorax. Lung volumes are low and medial bibasilar a irspace opacities are present. Mediastinum: Mediastinal contours appear normal. Heart size is normal. Bones and chest wall: No suspicious bony lesions. Overlying soft tissues appear unremarkable. IMPRESSION: 1. Placement of ETT with tip at the level of the abdelrahman. Recommend ETT retraction roughly 3 cm. 2. Placement right IJ CVL. 3. Medial bibasilar airspace opacities consistent with atelectasis versus pneumonia. Correlate clini yu. Desiree Wang critical care nurse telephone with results at 0931 hrs. 06/12/192016. Dictated by: Victorino RADER Interpreted: Lizzy Mays MD on 06/11/2016 at 9:26 Transcribed by: CHRISS on 06/11/2016 at 9:31 Approved by: Lizzy Mays MD, PhD on 06/11/2016 at 16:27
[2016-06-11 09:36] LABS: INR 1.13 ratio
[2016-06-11] MEDS ORDERED: Magnesium Sulf 4 Gm/100 mL H2O 4 GM in IV Premix 1 EACH IV ONE (09:55)
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
[2016-06-11] MEDS ORDERED: Sodium Chloride LOK Flush 10 mL Syringe IVFLUSH PRN ×3 (10:15→13:55)
--- NOTE | 2016-06-11 10:57 | ABG ---
DateTimeAnalyzed 10:52:00 -_ pH ____7.335 - 7.350 7.450 pCO2 ___40.1__ -mmHg 35.0 45.0 pO2 ___72.5__ -mmHg 69.0 116 HCO3- ___20.8__ -mmol/L 22.0 26.0 ABE ___-4.2__ -mmol/L -2.0 2.0 tHb ___10.0__ -g/dL O2Hb ___93.8__ -% COHb ____1.1__ -% MetHb ____1.1__ -% sO2 ___95.9__ -% 25.0 FIO2 ___40.0__ -% PRVC 550 - PEEP ____5.0__ -cmH2O Set_RR ___18.0__ -b/min Vt __550.0__ -L Drawn By NB - Date/Time Notified____ 10:56:00 -_ Spontaneous_RR ___18.0__ -b/min Oxygen Device 1 VENTILATOR - Notified By nb - Notified Whom Parimi / Saul - B 762 -mmHg tO2 ___13.2__ -Vol% Enrico test N/A -
--- NOTE | 2016-06-11 10:58 | NUR ---
NUTRITION ASSESSMENT: ASSESS: Pt is a 51yo M admitted to CCU for bladder mass. Pt is s/p cystoscopy. Jose Jon was called 06/11 in am when pt became unresponsive and pt required intubation. Currently NPOx2 days. PMHX: HLD, DM LABS: Reviewed. CO2 16, Glu 389, Ca 6.6, Mg 1.4, T.bili 1.9, AST 162, ALT 142, Alb 2.6 MEDS: Reviewed. Fentanyl, nimbex, propofol at 24.1ml/hr to provide 636kcal/day GI: 0 BM SKIN: Guero 14 CURRENT WTS: 134.6kg, BMI 40.2kg/m2, IBW 80.9kg DIET: NPO EST. NEEDS: vent, BMI Kcals: 2690-2960kcal/day (20-22kcal/kg) Pro: 120-145g/day (1.5-1.8g/kg IBW) Fluids:~2960-3350ml/day (22-25ml/kg) NUTRITION DIAGNOSIS: 1.) Inadequate oral intake related to decreased ability to consume sufficient energy as evidenced by current NPO status NUTRITION INTERVENTION: 1.) Will continue to monitor NPO/vent status. If pt continues to be NPO, recommend consider nutrition support 2.) If pt does require nutrition support, recommend start Glucerna 1.5@ 15ml/hr and hold x12 hrs. If tolerated, advance by 10ml q 4 hrs to goal rate of 70ml/hr to provide 2310kcal (2946kcal w/propofol) and 127g pro (100% estimated needs) 3.) Adjust goal rate based on propofol MONITOR / EVAL: NPO/vent, labs, GI, wt, POC, nutrition status. Will continue to monitor per high nutrition risk guidelines
--- NOTE | 2016-06-11 11:14 | DRSVH ---
[facility] [address] [place] [address] Echocardiogram Report Name: DIANA CROWELL te: 06/11/2016 Height: 72 in Hospital Exam Location: [facility] Weight: 297 lb Gender: Other BSA: 2.5 m2 : 1965 Age: 51 yrs BP: 119/71 mmHg Reason For Study: HYPOTENSION Ordering Physician: HOSPITALIST [facility] Performed By: Washington Vergara Referring Physician: Abelardo MARIN Interpretation Summary Left ventricular wall thickness is mildly increased. The ejection fraction is estimated to be 50-55%. There are no focal wall motion abnormalities. The aortic valve is mildly calcified. There is no aortic valve stenosis. Procedure: A two-dimensional transthoracic echocardiogram with color flow and Doppler was performed. The study quality was technically good. There is no prior echocardiogram noted for this patient. The patient was in normal sinus rhythm during the exam. The patient was tachycardic with a heart rate of 126-133 beats per minute. Left Ventricle: The left ventricular cavity is small. Left ventricular wall thickness is mildly increased. The ejection fraction is estimated to be 50- 55%. There are no focal wall motion abnormalities. Right Ventricle: The right ventricle grossly appears normal in size with probable normal systolic function. Atria: The left atrium is not well visualized. Right atrium not well visualized. The interatrial septum is intact with no evidence for an atrial septal defect. Mitral Valve: The mitral valve is normal in structure and function. There is no mitral regurgitation noted. Aortic Valve: The aortic valve is trileaflet. The aortic valve is mildly calcified. There is no aortic valve stenosis. No aortic regurgitation is present. Tricuspid Valve: The tricuspid valve is normal in structure and function. No tricuspid regurgitation. Pulmonary artery pressures cannot be estimated because of the lack of a measurable TR jet velocity. Pulmonic Valve: The pulmonic valve is normal in structure and function. There is trace pulmonic regurgitation. Great Vessels: The aortic root is normal size. The ascending aorta is mildly enlarged. The pulmonary artery is normal size. The IVC has a measurement of 19 mm. Inspiratory collapse cannot be assessed because of mechanical ventilation, thus CVP cannot be estimated.. Pericardium/ Pleura There is no pericardial effusion. There is no pleural effusion. MMode/2D Measurements & Calculations LVIDd: 3.4 cm LA dimension: 3.4 cm LVOT diam EDV(MOD-sp2) LVIDs: 1.9 cm IVC diam: 1.9 cm : 56.1 ml FS: 44.4 % AoV Opening EPSS: 0.53 cm IVSd: 1.3 cm Ao root diam LVPWd: 1.1 cm Aortic Jxn asc Aorta Diam LV petersen. diameter/BSA LV sys. diameter/BSA (cm/m^2): 1.4 (cm/m^2): 0.76 Doppler Measurements & Calculations Ao V2 max: 134.4 cm/secMV E max neto MV E/A: 0.84 PA V2 max Ao max P.2 mmHg : 63.0 cm/sec Med Peak E' Neto : 103.7 cm/sec Ao mean P.6 mmHg MV A max neto PA mean PG LVOT Max Neto : 75.3 cm/sec E/E' med: 9.1 : 73.7 cm/sec Lat Peak E' Neto PA Accel Time : 0.05 sec LIZZETTE(I,D): 3.5 cm E/E' lat: 13.6 sev ratio: 0.63 E/e' average MV A dur: 0.13 sec MV dec time: 0.09 sec Ao V2 mean LV V1 max PG PA V2 mean : 117.9 cm/sec : 75.6 cm/sec Ao V2 VTI: 19.0 cmLV V1 VTI: 12.0 cmPA pr(Accel) : 55.7 mmHg LIZZETTE(V,D): 3.1 cm2 LIZZETTE indexed to [facility] (cm^2/m^2): 1.4 Electronically signed by: Paul Keane on Reading Physician:06/11/2016 11:14 AM
[2016-06-11] MEDS ORDERED: Chlorhexidine 0.12% 473 mL Oral Solution MUC_MEMBRM SCH (11:20)
[2016-06-11 12:16] LABS: INR 1.07 ratio
--- NOTE | 2016-06-11 12:21 | CONS ---
[address] [address] CONSULTATION REPORT PATIENT: DIANA CROWELL : 1965 MR#: [id number] ADMIT: 06/10/2016 JOB ID: [id number] DATE OF SERVICE: 06/11/2016 PULMONARY CRITICAL CARE CONSULTATION NOTE: The patient is a 51-year-old man seen in consultation at the request of Dr. Victorino Gamez for acute hypoxic respiratory failure in the setting of hemorrhagic shock following emergent resection of a bladder mass. The patient was seen and evaluated with resident physician, Ramesh Mcguire. Please refer to his separate detailed note for additional information. The following is a brief note. HISTORY OF PRESENT ILLNESS: The patient is a 51-year-old man who reportedly presented to [facility] in [place] with massive hematuria last night. All of the history I have is from review of emergency room and Urology notes on the electronic medical records since the patient is intubated at this time. He reportedly has a history of type 2 diabetes, hyperlipidemia, and is an [employer] . He was transferred urgently here and was taken to the operating room by Dr. Lizzy Curry with Urology for resection of a large bladder mass that was found on imaging. Following the resection, he had continued massive hemorrhage from a large surface area on his bladder because of the size of this mass. In report, he was transfused 12 units of packed red cells, 3 units of FFP, and had been on norepinephrine and vasopressin as well as dobutamine. He was taken to Interventional Radiology and had an attempt at selective embolization of a branch of the internal iliac artery in order to stop the bleeding, but this was unsuccessful. Therefore, he was taken back to Interventional Radiology and had embolization of the main internal iliac artery. It appears the bleeding had stopped. He has been getting continuous bladder irrigation. The fluid is now light pink/clear in color as opposed to bloody in the earlier part of the night. He is currently on dobutamine, norepinephrine, vasopressin, cisatracurium paralytic, as well as midazolam and fentanyl infusions. Past medical history, social history, family history, and review of systems is summarized in Dr. Mcguire's separate note, but please note that the patient was intubated by the time we met him, so none of this information could be obtained from him directly. PHYSICAL EXAMINATION: Also also documented in Dr. Mcguire's note, and I agree with this. Brief exam: Vital signs have been reviewed and temperature max was 37.2. He is on 40% FiO2 and 5 cm of PEEP. General: Intubated, sedated, and paralyzed. Obese gentleman. Chest clear to auscultation. Abdomen is nontender and nondistended. Weathers catheter in place with now clear fluid output. LABORATORIES: Reviewed. WBC 18.2, hemoglobin 10.7, platelets 154. Chemistry also reviewed and notable for bicarb of 16, lactate last checked of 6.1, calcium down to 6.6. He does have some elevation in liver enzymes as well. IMAGING: Chest x-ray reviewed and shows low lung volume with volume overload slightly worse compared to yesterday. Arterial blood gas from this morning shows pH of 7.33, pCO2 of 40, pO2 of 72, and bicarbonate of 20. ASSESSMENT AND RECOMMENDATIONS: 1. Large bladder mass, likely malignancy status post resection on June 10, done emergently for massive hematuria. 2. Hemorrhagic shock. 3. Acute hypoxic respiratory failure. 4. Hemorrhage from bladder, status post embolization of right internal iliac artery. 5. Metabolic and lactic acidosis. This 51-year-old [employer] with known diabetes presented with massive hematuria and a softball sized mass in his bladder for which he was taken to the operating room by Dr. Curry last night and underwent resection. The procedure was complicated by hemorrhagic shock, and patient received for 12-14 units of packed red cells, fresh frozen plasma, and cryo. He eventually also needed a right iliac artery embolization - two attempts had been made to stop the bleeding. This appears to have been successful, and so far the fluid coming out of his Weathers with irrigation is clear. Also, his hemoglobin has been stable on the last couple of checks. With regards to hemodynamics - he is on dobutamine, norepinephrine, and vasopressin. We have successfully weaned off the dobutamine. The norepinephrine dose is down to less than half of what he was on this morning. We will continue to wean the pressors as tolerated. With regards to his sedation, he is on midazolam and fentanyl infusions, in addition to cisatracurium paralytic. Per Dr. Curry, any movement agitation on the patient's part is going to worsen the bleeding, so he really wanted him kept as still as possible for today until we can ensure no further bleeding. We will try to wean down the cisatracurium as tolerated, as long as the patient remains calm. Ideally, if he is doing really well and staying calm, I would like him also switched to propofol if his blood pressure tolerates. This would allow us a better chance of trying to extubate him tomorrow. With regards to vent settings, he is on minimal ventilator settings, and if this continues, I would recommend doing a pressure support trial tomorrow. Obviously, we cannot do this while paralyzed right now. He must have received some antibiotic therapy preoperatively which is routine to cover gram negative bacteria with bladder surgery, but I am going to check quickly with Dr. Cameron and see if he should receive anything additional, especially with the amount of hemorrhage and complications he has had. His lactic/metabolic acidosis seems to be slowly improving. Will continue to monitor that. At this point, it seems compensated on ABG. He is on appropriate gastrointestinal prophylaxis and deep venous thrombosis prophylaxis is contraindicated because of the bleeding. He is a FULL CODE. CRITICAL CARE TIME: 50 minutes.
[2016-06-11] MEDS: Insulin Human REGular Inj 100 UNIT in 0.9% Sodium Chloride-Pha MIX 100 ML IV SCH ×4 (12:46→22:41)
[2016-06-11] MEDS: Chlorhexidine 0.12% 15 mL Oral Solution MT SCH ×3 (12:46→19:59)
--- NOTE | 2016-06-11 13:33 | DRSVH ---
PROCEDURE: EMBOLIZATION OF BLEED INDICATIONS: BLATTER BLEED COMPARISON: [facility], XA, EMBOLIZATION OF BLEED, 06/10/2016, 22:07. Technique: 1. Pelvic arteriogram. 2. Right internal iliac arteriogram. 3. Embolization of the right internal iliac artery. 4. Completion arteriogram. 5. Sheath removal and hemostasis. Two-physician consent was obtained and placed in the chart. The patient was placed in the supine posi tion on the angiography table. General anesthesia and cardiorespiratory monitoring was provided by [facility] anesthesiology service. Under ultrasound guidance, using a micropuncture kit, the left common femor al artery was accessed in a retrograde fashion. An 035 wire was advanced through the micropuncture sh eath into the aorta. The micropuncture sheath was exchanged for a 5 Bangladeshi sheath. A 5 Bangladeshi pigtail catheter was advanced into the distal abdominal aorta and a bilateral pelvic arteriogram was perform ed. Next, a glide wire and Zafar catheter were used to interrogate the right internal iliac artery. Ar teriogram was performed. Coil embolization of the right internal iliac artery was performed. Completi on arteriogram was performed. The sheath was removed, and hemostasis was achieved. FINDINGS: Initial arteriogram demonstrates no definite evidence for extravasation of the external or internal iliac arteries bilaterally. Previous embolization coils were visualized within the superior branch of the right internal iliac artery. Completion arteriogram after embolization demonstrates murillo ccessful embolization of the right internal iliac artery. No contrast extravasation to suggest persis tent arterial hemorrhage. IMPRESSION: 1. Status post coil embolization of the right internal iliac artery. Please note, despite the lack of active extravasation visualized on the study, the decision was made to embolize the right internal i liac artery as the patients clinical status suggested continued, occult arterial hemorrhage. Dictated by: Lois Watt M.D. on 06/11/2016 at 13:20 Approved by: Lois Watt M.D. on 06/11/2016 at 13:27
[2016-06-11] MEDS ORDERED: Atropine 1 mg/10 mL (Code) Syringe IVPUSH PRN (13:55)
[2016-06-11] MEDS: Propofol Inj 1,000,000 MCG in IV Premix 1 EACH IV SCH ×2 (14:17→18:22)
[2016-06-11] MEDS: Norepinephrine 8,000 mCg/250 mL D5W Premix IV PRN ×3 (14:33→20:00)
--- NOTE | 2016-06-11 16:10 | PCM.PNMED ---
Subjective Date of Service Jun 11, 2016 Subjective 51-year-old man with type II diabetes mellitus presents with 4 days of hematuria and experienced severe postoperative hemorrhagic shock following resection of bladder cancer on 06/10. The patient remains sedated on the ventilator. His bladder wash now seems fairly clear after a second interventional radiology procedure which coiled his internal iliac artery. Exam Vital Signs Vital Sign - Last Date Time Temp Pulse Resp B/P Pulse Ox O2 Delivery O2 Flow Rate FiO2 06/11/16 15:27 99 106/66 97 40 06/11/16 13:45 18 06/11/16 12:39 Ventilator 06/11/16 12:32 37.2 06/10/16 18:20 4 Intake and Output 06/10/16 06/10/16 06/11/16 Cumulative From/Thru 14:59 22:59 06:59 06/10/16 00:53 - 06/10/16 21:30 Intake Total 352 ml 5350 ml 5702 ml Output Total 03570 ml 510 ml 71825 ml Balance -45999 ml 4840 ml -9908 ml Intake Oral 0 ml 0 ml IV Total 352 ml 2350 ml 2702 ml Autotransfusion 2400 ml 2400 ml Packed Cells 600 ml 600 ml Output Urine Total 43545 ml 210 ml 08870 ml Estimated Blood Loss 300 ml 300 ml # Bowel Movements 0 0 Exam General: Obese pale appearing sedated on ventilator HEENT: sclerae anicteric, face symmetric Chest: Generally clear to auscultation; CVC present Cardiac: S1S2, no murmur Abdomen: Reduced bowel sounds, non-tender; Weathers catheter present Extremities: 1+ pitting edema Neuro: Sedated, cranial nerves appear symmetric IVs and Medications Medications Reviewed: Medications were reviewed in detail Lab and Diagnostics Result Diagram: 06/11/16 1140 06/11/16 1140 X-Rays, CTs and MRIs PROCEDURE: X-RAY CHEST ONE VIEW, PORTABLE ([id number]) INDICATIONS: confirm line placement TECHNIQUE: One view of the chest was acquired. COMPARISON: None. FINDINGS: Patient is markedly rotated. Surgical changes and devices: A central venous catheter is projected over the expected region of the SVC. However, the patient is markedly rotated, limiting evaluation. Lungs and pleura: No pleural effusions or pneumothorax. Lungs are clear. Mediastinum: Mediastinal contours are poorly characterized on this rotated view. Bones and chest wall: No suspicious bony lesions. Overlying soft tissues appear unremarkable. IMPRESSION: 1. Markedly rotated patient. Central venous catheter is projected over the expected region of the SVC. However, repeat study without rotation is recommended. Dictated by: Lois Watt M.D. on 06/10/2016 at 21:07 Approved by: Lois Watt M.D. on 06/10/2016 at 21:09 Assessment & Plan # Acute respiratory failure, airway protection -secondary to hypovolemic shock from postoperative blood loss - ventilator bundle ordered -sedation with midaz / fentanyl, unable to sedate with propofol given hypotension -cisatracuruim given following rocuronium, tapering off - SBT when clinically stable # Hypovolemic shock, acute -secondary to acute blood loss anemia following bladder tumor resection -continue norepinephrine, vasopressin and dobutamine as needed -MAP goal >65; urine output greater than 0.5 mL-KG-HR # Acute blood loss anemia, acute -secondary to hematuria in the setting of bladder tumor resection -goal Hgb 8-9 -q4hr H&H until stable -4 units to remain in house at all times # Bladder carcinoma - Current plan is to achieve hemostasis, then patient to receive neoadjuvant chemotherapy followed by cystectomy - Antibiotics; plan to discontinue signs of infection - Urology, Dr. Curry is following #Type II diabetes mellitus with hyperglycemia -insulin gtt -hold glargine and SSI Venous embolism prophylaxis: Mechanical methods only GI prophylaxis: Famotidine twice a day GI Prophylaxis: H2 leanna VTE Mechanical Devices: Intermittant Pneumatic CD Resuscitation Status: CPR: Attempt Resuscitation Time spent 45 minutes Sloan Gamez MD Jun 11, 2016 16:10
[2016-06-11] MEDS ORDERED: Pantoprazole 4 mg/mL 10 mL Inj IVPUSH SCH (16:30)
[2016-06-11 16:34] LABS: INR 1.04 ratio
--- NOTE | 2016-06-11 17:25 | PROG NOTE ---
[address] [address] PROGRESS NOTE PATIENT: DIANA CROWELL : 1965 MR#: [id number] ADMIT: 06/10/2016 JOB ID: [id number] DATE: 06/11/2016 PROGRESS NOTE: Postoperative day one TUR bladder tumor. In summary, patient experienced persistent bleeding postoperatively, eventually entering hypovolemic shock. Discussion with Anesthesia, the hospitalist, and Radiology led to him being taken to the odd job laborer where a selective embolization was performed of a bladder branch of the internal iliac artery. This appeared to achieved hemostasis at the time. However, within 1 hour of return to the coronary care unit, bleeding had recurred. After discussion, it was elected to return the patient to the odd job laborer where a nonselective internal iliac embolization was performed with excellent results. Postembolization, for the last 10 hours, the patient's bladder irrigations have remained relatively clear. Chemistry reveals normal renal function. Coagulation studies are within normal limits. Hemoglobin is stable at 9.4. The patient is still requiring pressors to maintain adequate blood pressure. I have recommended that he remain intubated until tomorrow to ensure good hemostasis. The patient's combativeness postoperatively was a significant factor in this persistent bleeding. 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
--- NOTE | 2016-06-11 18:11 | NUR ---
/hemodynamics/respiratory/sedation Weathers draining clear blood tinged urine, continuous irrigation in place. No clots or anand hematuria observed this shift. Abdomen remains distended. No bowel sounds auscultated. OG to LIWS with clear green drainage. SR/ST with occasional PVCs. MAP 65 to 70. Norepinephrine infusing at 0.3mcg/kg/min and vasopressin at 0.02units/min. Left groin site remains free of complications, no sign of active bleeding, bruising or hematoma. +1 peripheral pulses. PRVC with 40% fi02 and peep of 5. Scant creamy/white secretions with ET suction. Nimbex removed shortly after 13:00. Versed, fentanyl and propofol gtts continued for sedation and pain management. FRITZ, unable to follow commands. Will continue to monitor.
[2016-06-11] MEDS: fentaNYL 2,500 mCg/250 mL 2,500 MCG in IV Premix 1 EACH IV SCH (19:59)
--- NOTE | 2016-06-11 20:25 | ABG ---
DateTimeAnalyzed 20:19:00 -_ pH ____7.459 - 7.350 7.450 pCO2 ___39.8__ -mmHg 35.0 45.0 pO2 ___56.9__ -mmHg 69.0 116 HCO3- ___27.8__ -mmol/L 22.0 26.0 ABE ____4.1__ -mmol/L -2.0 2.0 tHb ____9.3__ -g/dL O2Hb ___90.4__ -% COHb ____1.1__ -% MetHb ____1.1__ -% sO2 ___92.4__ -% 25.0 FIO2 ___40.0__ -% PEEP ____5.0__ -cmH2O Set_RR ___18.0__ -b/min Vt __550.0__ -L Drawn By MK - Date/Time Notified____ 20:24:00 -_ Spontaneous_RR ___18.0__ -b/min Oxygen Device 1 VENTILATOR - Notified By MK - B 765 -mmHg tO2 ___11.8__ -Vol% Enrico test N/A -
[2016-06-11 20:46] LABS: INR 1.05 ratio
[2016-06-12] VITALS (20 sets, daily range): BP systolic 93–126; BP diastolic 53–72; PULSE 84–100; RESP 14–18; O2SAT 88–100
[2016-06-12] MEDS: Chlorhexidine 0.12% 15 mL Oral Solution MT SCH ×7 (00:26→23:57)
[2016-06-12] MEDS: DOBUTamine 500 mg/250 D5W 500,000 MCG in IV Premix 1 EACH IV SCH ×2 (00:26→22:58)
[2016-06-12] MEDS: Phenylephrine Inj 20,000 MCG in 0.9% Sodium Chloride 248 ML IV SCH ×3 (00:26→10:49)
[2016-06-12] MEDS: Propofol Inj 1,000,000 MCG in IV Premix 1 EACH IV SCH ×5 (00:27→20:31)
[2016-06-12] MEDS: Norepinephrine 8,000 mCg/250 mL D5W Premix IV PRN ×5 (00:27→20:31)
[2016-06-12] MEDS: Vasopressin Inj 20 UNIT in 0.9% Sodium Chloride 100 ML IV SCH ×3 (00:33→22:47)
[2016-06-12 01:18] LABS: INR 1.01 ratio
[2016-06-12] MEDS ORDERED: KCl 40 mEq/100 mL Premix (K 3 - 3.7 & Creat < 2) IV ONE ×2 (02:05→19:15)
[2016-06-12] MEDS: 0.9% Sodium Chloride 1,000 ML IV SCH (02:30)
[2016-06-12] MEDS: Cisatracurium Inj 200,000 MCG in 0.9% Sodium Chloride-Pha MIX 100 ML IV SCH ×3 (02:30→20:14)
[2016-06-12] MEDS: Piperacillin-Tazo 3.375 Gm Inj 3.375 GM in Dextrose 5% Minibag Plus 50 ML IV SCH ×3 (02:36→17:53)
[2016-06-12] MEDS: Dextrose 5% 0.9% NaCl 1,000 ML IV PRN ×2 (02:36→15:12)
[2016-06-12] MEDS: Midazolam Inj 100 MG in IV Premix 1 EACH IV SCH (04:02)
--- NOTE | 2016-06-12 04:50 | ABG ---
DateTimeAnalyzed 04:47:00 -_ pH ____7.512 - 7.350 7.450 pCO2 ___34.7__ -mmHg 35.0 45.0 pO2 ___77.4__ -mmHg 69.0 116 HCO3- ___27.6__ -mmol/L 22.0 26.0 ABE ____4.7__ -mmol/L -2.0 2.0 tHb ____8.5__ -g/dL O2Hb ___95.3__ -% COHb ____1.1__ -% MetHb ____1.3__ -% sO2 ___97.6__ -% 25.0 FIO2 ___45.0__ -% PEEP ____5.0__ -cmH2O Set_RR ___18.0__ -b/min Vt __550.0__ -L Drawn By MK - Date/Time Notified____ 04:49:00 -_ Spontaneous_RR ___18.0__ -b/min Oxygen Device 1 VENTILATOR - Notified By MK - Notified Whom sullenburger - B 767 -mmHg tO2 ___11.4__ -Vol% Enrico test N/A -
[2016-06-12 05:16] LABS: INR 1.02 ratio
--- NOTE | 2016-06-12 06:14 | NUR ---
Weathers/BP/Sedation Pt remains on continuous bladder irrigation. Weathers appears to be draining bright red blood, but much improved per nursing staff that was with pt yesterday. No significant clotting. Able to wean pt down on Levophed d/t stable BPs. Attempting to d/c vasopressin when able. Concern for excess movement in pt potentially causing irritation to bladder. Increased sedation per protocol and clustered care for limited interruption and stimulation that would make pt move. Tolerating well. Will continue to monitor. Care ongoing
--- NOTE | 2016-06-12 06:35 | NUR ---
Temp/Labs Pt developed low grade temp last evening with max temp being 38.3. MD aware. No pharmaceutical intervention as pt is on abx and lactic acid trending down. Labs show critical low calcium and low trending low H/H. MD also aware of these values. No orders to replace as corrected Ca is >7.5. Orders to give 1 unit PRBC if hemoglobin drops below 8. Pt stable at this time. Care ongoing
[2016-06-12 07:47] LABS: BASOPHILS % (AUTO) 0.3 % (0-3); EOSINOPHILS % (AUTO) 0.7 % (0-5); MONOCYTES % (AUTO) 15.2 % (4-12); Mean Corpuscular Hemoglobin 29.7 pg (27.0-35.0); Mean Corpuscular Volume 84.9 fL (81-100); NEUTROPHILS % (AUTO) 61.7 % (40-74); Platelet Count 160 bil/L (150-400)
[2016-06-12] MEDS: Famotidine Inj 20 MG in IV Premix 1 EACH IV SCH ×3 (07:54→20:31)
[2016-06-12 08:00] LABS: Magnesium 1.8 mg/dL (1.6-2.6); Phosphorus 2.5 mg/dL (2.5-4.9)
[2016-06-12 08:51] LABS: INR 1.01 ratio
[2016-06-12] MEDS ORDERED: Furosemide 10 mg/mL 2 mL Inj IVPUSH ONE (09:15)
--- NOTE | 2016-06-12 09:43 | DRSVH ---
PROCEDURE: X-RAY CHEST ONE VIEW, PORTABLE ([id number]) INDICATIONS: vent TECHNIQUE: One view of the chest was acquired. COMPARISON: [facility], CR, XR CHEST 1VW (PORTABLE), 06/11/2016, 1:30. FINDINGS: Surgical changes and devices: ETT tip projected by 0.4 cm above the abdelrahman and stable positioning of right IJ CVL. Lungs and pleura: No pleural effusions or pneumothorax. Persistent bibasilar airspace opacities. P robable small effusions. Mediastinum: Mediastinal contours appear normal. Heart size is normal. Bones and chest wall: No suspicious bony lesions. Overlying soft tissues appear unremarkable. IMPRESSION: Bibasilar atelectasis versus aspiration or pneumonia. Correlate clinically. Dictated by: Victorino Long RRA Interpreted: Lizzy Mays MD on 06/12/2016 at 9:41 Transcribed by: CHRISS on 06/12/2016 at 9:41 Approved by: Lizzy Mays MD, PhD on 06/12/2016 at 16:35
--- NOTE | 2016-06-12 10:21 | NUR ---
NUTRITION FOLLOW-UP: ASSESS: POD #2 following TUR bladder tumor. Postoperatively, the patient experienced persistent bleeding, with subsequent hypovolemic shock. He was taken to the carpenter labor supervisor, where selective embolization of a bladder branch of the internal iliac artery was performed. However within an hour following embolization, the bleeding reoccurred. The patient was returned to the carpenter labor supervisor, where a nonselective internal iliac embolization was performed. Postembolization, the patient's bladder irrigations have remained relatively clear. He remains intubated, requiring sedation and pressor support. Per discussion during CCU rounds, it seems unlikely the patient will be extubated today. Pulmonology requesting unsigned enteral feeding orders be placed in chart for provider authorization. PMHX: HLD, DM. LABS:Glu 181, Ca 6.9, AST 574, ALT 487, Alb 2.4. MEDS: Reviewed. Insulin, levophed, vasopressin, versed, fentanyl. Propofol rate currently 12.1 mL/hr, providing 319 lipid kcal / day. GI: 0 BM SKIN: Guero 10. WT: 134.6 kg, BMI 40.2kg/m2, IBW 80.9kg. Admit weight: 134.6 kg. DIET: NPO EST. NEEDS: vent, BMI Kcals: 2690-2960kcal/day (20-22kcal/kg) Pro: 120-145g/day (1.5-1.8g/kg IBW) Fluids:~2960-3350ml/day (22-25ml/kg) NUTRITION DIAGNOSIS: 1) Inadequate oral intake related to decreased ability to consume sufficient energy as evidenced by current NPO / vent status - PERSISTS. NUTRITION INTERVENTION: 1) Unsigned enteral feeding orders in chart, as follows: Glucerna 1.5 @ 15ml/hr and hold x12 hrs. If tolerated, advance by 10ml q 4 hrs to goal rate of 70ml/hr to provide 2310 kcal (2629 kcal w/propofol) and 127g pro (98% kcal, 100% estimated protein needs) 2) Will adjust goal rate based on propofol daily if significant rate change. MONITOR / EVAL: NPO/vent, labs, GI, wt, POC, nutrition status. Will continue to monitor per high nutrition risk guidelines
[2016-06-12] MEDS ORDERED: KCl 40 mEq/100 mL (CENTRAL) 40 MEQ in IV Premix 1 EACH IV ONE (10:25)
--- NOTE | 2016-06-12 11:09 | PROG NOTE ---
[address] [address] PROGRESS NOTE PATIENT: DIANA CROWELL : 1965 MR#: [id number] ADMIT: 06/10/2016 JOB ID: [id number] DATE: 06/12/2016 PULMONARY CRITICAL CARE PROGRESS NOTE: The patient is a 51-year-old man who underwent emergent resection of a bladder mass on June 10 for massive hematuria, complicated by hemorrhagic shock requiring right internal iliac artery embolization, as well as respiratory failure. The patient was seen and evaluated with resident physician, Ramesh Mcguire DO. Refer to his separate detailed note for additional information. INTERVAL HISTORY: He was weaned off paralytics and remains comfortable on midazolam, propofol, fentanyl. He is still on norepinephrine and vasopressin. Urine has cleared, and there is no further visible hematuria. Hemoglobin has been stable overnight. REVIEW OF SYSTEMS: Unable to obtain. PHYSICAL EXAMINATION: Vital signs reviewed. Temperature max of 38. FiO2 of 45%. General: Morbidly obese man lying in bed. He is calmed but when sedation is lightened he starts moving limbs and getting agitated very quickly. Abdomen distended but nontender. Soft. Weathers catheter with clear urine. Still getting continuous bladder irrigation. LABORATORIES: Reviewed and notable for WBC down to 14.8 from 18 yesterday. Hemoglobin stable at 8.3. Chemistry reviewed. Creatinine is normal. Calcium still on the low side at 6.9. LFT have gone up to the 500 range, both AST and ALT, although alk phos and bilirubin are stable. Chest x-ray reviewed. Low lung volumes. Minimal right effusion. Lungs are otherwise clear. An ET tube is in appropriate position. Cultures, MRSA nasal swab is negative. Arterial blood gas shows pH of 7.51, pCO2 of 34, pO2 of 77, bicarb of 27. ASSESSMENT AND RECOMMENDATIONS: 1. Acute hypoxic respiratory failure. 2. Hemorrhagic shock. 3. Large bladder mass, likely malignancy, status post resection on June 10 done emergently for massive hematuria. 4. Status post embolization of right internal iliac artery for postoperative hemorrhage from the bladder. 5. Metabolic and lactic acidosis -- improved. This 51-year-old man presented with acute massive hematuria and underwent emergent resection of a large, softball-sized mass from the bladder by Dr. Lizzy Curry on the night of June 10. This was complicated by a massive hemorrhage requiring two attempts at embolization of the right internal iliac artery with which the bleeding finally stopped. The patient had received 14 units of blood plus additional units of FFP, cryoprecipitate, etc. He has shown no signs of ongoing bleeding for the last 24 hours. He has been on the ventilator, sedated, on pressors since that time and is requiring a significant amount of sedation to stay calm. Today, however, since there are no additional signs of hemorrhage, I would like to lighten his sedation, wean off his pressors and see if he can be extubated. I would like to confirm with Urology that this plan is okay with them. I also noted that he has continued to get scheduled Zosyn, which appears to be mostly prophylactic with no obvious indication of infection at this point. So, I would like to stop the Zosyn unless Urology feels otherwise. We gave him a dose of IV Lasix because he is significantly volume overloaded from all the blood products. I think this is okay despite the pressors because mostly the pressors seem to be handling the hypotension that is related to high dose of sedation that he is requiring. If we cannot extubate him today, we are going to start tube feeds. No deep venous thrombosis prophylaxis, and he is getting gastrointestinal prophylaxis. CRITICAL CARE TIME: 60 minutes.
--- NOTE | 2016-06-12 11:33 | PCM.PNMED ---
Subjective Date of Service Jun 12, 2016 Subjective Pulmonology/ICU progress note. Attending Provider Dr. Mendes. Requesting provider Dr. Gamez. 51 year old male with past medical history of hyperlipidemia, DMII (insulin dependant) s/p bladder tumor removal with significant blood loss requiring 14 units of pRBC's and embolization of right internal iliac artery for control of blood loss. Overnight: Remained in sinus rhythm throughout most of the night, 7 beats of V- tach at 1800 yesterday. Maintained low grade fevers. Bicarb stopped at 22:00. hemoglobin has dropped slightly overnight but not below 8. Bladder irrigation continues with no evidence of return of anand bleeding Exam Vital Signs Vital Sign - Last Date Time Temp Pulse Resp B/P Pulse Ox O2 Delivery O2 Flow Rate FiO2 06/12/16 10:18 99 99/58 96 45 06/12/16 07:48 18 06/12/16 07:46 Ventilator 06/12/16 07:45 37.7 06/10/16 18:20 4 Intake and Output 06/11/16 06/11/16 06/12/16 Cumulative From/Thru 15:00 23:00 07:00 06/10/16 00:53 - 06/12/16 06:31 Intake Total 482 ml 5762 ml 2592 ml 00381 ml Output Total 1375 ml 2600 ml 50985 ml Balance 482 ml 4387 ml -8 ml -5047 ml Intake Oral 0 ml IV Total 82 ml 5762 ml 2592 ml 72307 ml Autotransfusion 2400 ml Packed Cells 600 ml FFP 400 ml 400 ml Output Urine Total 1250 ml 2500 ml 43464 ml Gastric Drainage Total 125 ml 100 ml 225 ml Estimated Blood Loss 300 ml # Bowel Movements 0 0 Exam General: Intubated and sedated, obese male in no acute distress HEENT: Normocephalic, atraumatic. External ears without defect. ET tube in place Neck: No jugular venous distension. Right IJ in place Cardiovascular: Regular rate and rhythm with no murmurs appreciated Pulmonary: Clear to auscultation bilaterally with no crackles or wheezes Abdomen: Soft and obese. No rigidity. Extremities: No extremity edema appreciated Neurological: Intubated and sedated Ventilator settings: Tidal volume 500. Respiratory rate 18. FiO2 45 %. PEEP 5. ABG: PH 7.5, PCO2 34.7, PO2 77.4, HCO3 27.6 IV drips and Sedatives: Fentanyl 125, propofol 25, Levophed 0.2, vasopressin 0.02, insulin 11/hr IV lines: Right IJ, left and right AC lines I&O: In 2592 (14,538), out 2600 (19,585), total negative 5047 IVs and Medications Medications Reviewed: Medications were reviewed in detail Lab and Diagnostics Result Diagram: 06/12/1682606/12/16826 Microbiology MRSA negative X-Rays, CTs and MRIs PROCEDURE: X-RAY CHEST ONE VIEW, PORTABLE ([id number]) INDICATIONS: confirm line placement TECHNIQUE: One view of the chest was acquired. COMPARISON: None. FINDINGS: Patient is markedly rotated. Surgical changes and devices: A central venous catheter is projected over the expected region of the SVC. However, the patient is markedly rotated, limiting evaluation. Lungs and pleura: No pleural effusions or pneumothorax. Lungs are clear. Mediastinum: Mediastinal contours are poorly characterized on this rotated view. Bones and chest wall: No suspicious bony lesions. Overlying soft tissues appear unremarkable. IMPRESSION: 1. Markedly rotated patient. Central venous catheter is projected over the expected region of the SVC. However, repeat study without rotation is recommended. Dictated by: Lois Watt M.D. on 06/10/2016 at 21:07 Approved by: Lois Watt M.D. on 06/10/2016 at 21:09 Additional Diagnostics EMBOLIZATION OF BLEED IMPRESSION: 1. Status post coil embolization of the right internal iliac artery. Please note , despite the lack of active extravasation visualized on the study, the decision was made to embolize the right internal iliac artery as the patients clinical status suggested continued, occult arterial hemorrhage. Assessment & Plan 51-year-old male's status post bladder tumor resection with internal iliac artery embolization admitted to CCU for hypovolemic shock on ventilator support. 1. Hypovolemic shock secondary to acute blood loss postoperatively bladder tumor removal. - Tumor removal of right-sided bladder mass 10 x 6 cm with postoperative uncontrolled bleeding. - Patient required total of 14 units pRBCs 1 unit FFP, 2 units cryoprecipitate - Status post Embolization of right internal iliac artery - Typed and crossed, additional units on standby - Continue to trend H&H - Continue D5NS - Continue blood pressure support Levophed, Vasopressin - Urology following 2. Acute hypoxic respiratory failure - Patient remains intubated on ventilator for airway protection - Vent Settings FiO2 0.45, PEEP 5, RR 18, TV 500 - ABGs 06/12/2016 show pH 7.5, pCO2 34.7, pO2 77.4, HCO3 27.6 - Sedated with propofol, fentanyl and midazolam - Nimbex stopped - Pressure support trial today 3. Transaminitis, chronicity unknown - Given patient BMI, history of DM, and fatty liver seen on CT, likely due to fatty liver disease - AST ALT continue trended up most likely due to shock liver - Continue to monitor 4. DMII, present on admission - Hold home Levemir 100 units subcutaneous, gabapentin 300 mg daily and fenofibrate 100 mg daily - Patient currently on insulin drip at 11 units per hour 5. Bladder Carcinoma - Follow up outpatient for chemotherapy and possible cystectomy - Urology following GI Prophylaxis: H2 leanna VTE Mechanical Devices: Intermittant Pneumatic CD Resuscitation Status: CPR: Attempt Resuscitation Attending Statement I have seen and examined this patient with the resident physician. Vital signs , labs, imaging have been reviewed. I agree with the assessment and plan above. Please refer to my separately dictated progress note for any modifications to above. Ceci Mendes M.D. Pulmonary and Critical Care medicine Pager [phone] JAQUELINE FONTANEZ DO Jun 12, 2016 10:39 Ceci Mendes MD Jun 12, 2016 13:56
--- NOTE | 2016-06-12 12:52 | PCM.PNMED ---
Subjective Date of Service Jun 12, 2016 Subjective 51-year-old man with type II diabetes mellitus presents with 4 days of hematuria and experienced severe postoperative hemorrhagic shock following resection of bladder cancer on 06/10. Underwent iliac artery embolization with subsequent hemostasis on 06/11 The patient remains sedated on the ventilator. Bladder irrigation light pink tinged. Exam Vital Signs Vital Sign - Last Date Time Temp Pulse Resp B/P Pulse Ox O2 Delivery O2 Flow Rate FiO2 06/12/16 12:34 98 45 06/12/16 11:59 Ventilator 06/12/16 11:58 37.2 92 18 93/54 06/10/16 18:20 4 Intake and Output 06/11/16 06/11/16 06/12/16 Cumulative From/Thru 15:00 23:00 07:00 06/10/16 00:53 - 06/12/16 06:31 Intake Total 482 ml 5762 ml 2592 ml 39322 ml Output Total 1375 ml 2600 ml 12860 ml Balance 482 ml 4387 ml -8 ml -5047 ml Intake Oral 0 ml IV Total 82 ml 5762 ml 2592 ml 57268 ml Autotransfusion 2400 ml Packed Cells 600 ml FFP 400 ml 400 ml Output Urine Total 1250 ml 2500 ml 78798 ml Gastric Drainage Total 125 ml 100 ml 225 ml Estimated Blood Loss 300 ml # Bowel Movements 0 0 Exam General: Obese pale appearing sedated on ventilator HEENT: sclerae anicteric, face symmetric Chest: Generally clear to auscultation; CVC present Cardiac: S1S2, no murmur Abdomen: Reduced bowel sounds, soft non-tender; Weathers catheter present Extremities: 1+ pitting edema Neuro: Sedated, cranial nerves appear symmetric IVs and Medications Medications Reviewed: Medications were reviewed in detail Lab and Diagnostics Arterial blood gas: DateTimeAnalyzed 04:47:00 -_ pH ____7.512 - 7.350 7.450 pCO2 ___34.7__ -mmHg 35.0 45.0 pO2 ___77.4__ -mmHg 69.0 116 HCO3- ___27.6__ -mmol/L 22.0 26.0 ABsO2 ___97.6__ -% 25.0 FIO2 ___45.0__ -% ALT 457 (lowest previous value was 47) Bilirubin normal\ Albumin 2.4 Calcium 6.9 (8.2 corrected) Fibrinogen, platelets and coags remain normal. . Result Diagram: 06/12/1682606/12/16826 Microbiology MRSA negative X-Rays, CTs and MRIs PROCEDURE: X-RAY CHEST ONE VIEW, PORTABLE ([id number]) IMPRESSION: 1. Markedly rotated patient. Central venous catheter is projected over the expected region of the SVC. However, repeat study without rotation is recommended. Dictated by: Lois Watt M.D. on 06/10/2016 at 21:07 PROCEDURE: X-RAY CHEST ONE VIEW, PORTABLE ([id number]) IMPRESSION: Bibasilar atelectasis versus aspiration or pneumonia. Correlate clinically. Dictated by: Victorino Long RR Interpreted: Lizzy Mays MD on 06/12/2016 at 9:41 . Additional Diagnostics PROCEDURE: EMBOLIZATION OF BLEED IMPRESSION: 1. Status post coil embolization of the right internal iliac artery. Please note , despite the lack of active extravasation visualized on the study, the decision was made to embolize the right internal iliac artery as the patients clinical status suggested continued, occult arterial hemorrhage. Dictated by: Lois Watt M.D. on 06/11/2016 at 13:20 . Assessment & Plan # Acute respiratory failure, airway protection. Secondary to hypovolemic shock from postoperative blood loss. Oxygenation is remaining good with no significant pneumonia. Patient is highly agitated when sedation is lightened. Chest x-ray shows bibasilar atelectasis. Minimal secretions. - ventilator bundle ordered; chlorhexidine - sedation with midazolam, fentanyl, propofol; daily sedation vacation - SBT when clinically stable - ICU service is following # Fever, leukocytosis. Low-grade fever on 06/12 of 38.0, but stress leukocytosis is improving. Chest x-ray shows bibasilar haziness consistent with atelectasis versus infiltrate. Tracheal secretions are minimal. There is no Lactic acidosis. Patient remains on Zosyn since the perioperative period. - Consider discontinuation of antibiotics. # Hypovolemic shock, acute. Massive transfusion with RBCs, FFP and cryoprecipitate. Secondary to acute blood loss anemia following bladder tumor resection. Required triple pressors. -continue norepinephrine, vasopressin; wean as tolerated -MAP goal >65; urine output greater than 0.5 mL-KG-HR # Acute blood loss anemia, acute. Secondary to hematuria in the setting of bladder tumor resection. Goal Hgb 8. - Okay to reduce frequency of hemoglobin monitoring - 4 units to remain in house at all times # Bladder carcinoma, new diagnosis. Current plan is to achieve hemostasis, then patient to receive neoadjuvant chemotherapy followed by cystectomy later date. - Perioperative antibiotics have been continued - Urology, Dr. Curry is following #Type II diabetes mellitus with hyperglycemia. As of 06/12 Glucose control is well above target. - insulin gtt at present; adjust accordingly - Resume subcutaneous insulin when clinically stable Venous embolism prophylaxis: Mechanical methods only GI prophylaxis: Famotidine twice a day GI Prophylaxis: H2 leanna VTE Mechanical Devices: Intermittant Pneumatic CD Resuscitation Status: CPR: Attempt Resuscitation Time spent 35 minutes Sloan Gamez MD Jun 12, 2016 12:52
[2016-06-12] MEDS ORDERED: TAMS0.4C29 PO (13:14)
[2016-06-12] MEDS: Insulin Human REGular Inj 100 UNIT in 0.9% Sodium Chloride-Pha MIX 100 ML IV SCH (15:11)
--- NOTE | 2016-06-12 18:03 | NUR ---
Hemodynamics/sedation/respiratory/ Levophed and vasopressin continued for MAP maintenance > 65. SR per monitor technician. Propofol, versed and fentanyl gtts for ventilator tolerance and pain managment. PRVC with 45% fi03 and PEEP of 5. Minimal thick creamy yellow secretions with ET suction. Lungs CTA. Opens opens to stimuli. and nods yes/no. Restless when sedation decreased, drawing up legs and reaching for ET tube. Bright red urine output noted with increased activity, returns to clear to light pink when resting without stimuli. Hgb trending down, 1 unit PRBCs transfusing. Tube feeding initiated. Insulin gtt continued per protocols. Will continue to monitor.
[2016-06-12] MEDS: fentaNYL 2,500 mCg/250 mL 2,500 MCG in IV Premix 1 EACH IV SCH ×2 (18:30→19:36)
[2016-06-13] VITALS (15 sets, daily range): BP systolic 91–126; BP diastolic 44–74; PULSE 86–111; RESP 12–20; O2SAT 94–99
[2016-06-13] MEDS: Piperacillin-Tazo 3.375 Gm Inj 3.375 GM in Dextrose 5% Minibag Plus 50 ML IV SCH ×3 (03:25→17:42)
[2016-06-13 04:09] LABS: BASOPHILS % (AUTO) 0.4 % (0-3); EOSINOPHILS % (AUTO) 2.2 % (0-5); MONOCYTES % (AUTO) 11.1 % (4-12); Mean Corpuscular Hemoglobin 28.7 pg (27.0-35.0); Mean Corpuscular Volume 89.1 fL (81-100); Platelet Count 107 bil/L (150-400)
[2016-06-13] MEDS: Cisatracurium Inj 200,000 MCG in 0.9% Sodium Chloride-Pha MIX 100 ML IV SCH ×3 (04:13→23:59)
[2016-06-13] MEDS: Chlorhexidine 0.12% 15 mL Oral Solution MT SCH ×5 (04:20→20:30)
[2016-06-13 04:35] LABS: Magnesium 1.9 mg/dL (1.6-2.6)
[2016-06-13] MEDS: Midazolam Inj 100 MG in IV Premix 1 EACH IV SCH (04:40)
[2016-06-13] MEDS: Propofol Inj 1,000,000 MCG in IV Premix 1 EACH IV SCH ×2 (04:40→09:03)
--- NOTE | 2016-06-13 05:10 | ABG ---
DateTimeAnalyzed 05:05:02 -_ pH ____7.418 - pCO2 ___42.1__ -mmHg pO2 ___78.9__ -mmHg HCO3- ___27.1__ -mmol/L ABE ____2.4__ -mmol/L tHb ____7.8__ -g/dL O2Hb ___95.8__ -% COHb ____1.8__ -% MetHb ____0.1__ -% sO2 ___97.7__ -% FIO2 ___45.0__ -% PRVC 17 - PEEP ____5.0__ -cmH2O Vt __500.0__ -L Drawn By RB - Date/Time Notified____ 05:10:00 -_ Spontaneous_RR 14 -b/min Oxygen Device 1 VENTILATOR - Notified By RB - Notified Whom AYAKA S, RN - B 759 -mmHg K+ ____3.8__ -mmol/L tO2 ___10.7__ -Vol% Enrico test _Positive -
--- NOTE | 2016-06-13 06:45 | NUR ---
BP / 3 way irrigation / fever Able to titrate Levophed down and turn Vasopressin off. MAP > 65. 3 way irrigation, thakkar draining pink urine, sediment but no clots noted. 4500ml of irrigant used, actual urine output was 1175 ml. Patient has low grade fever throughout shift, 38.2 is the tmax. Tylenol put down OGT, cool wash cloth placed on forehead and fan is on. MD updated on H&H from AM labs. No new orders; continue scheduled Q8 H&H at 0800 this AM.
--- NOTE | 2016-06-13 06:56 | DRSVH ---
PROCEDURE: X-RAY CHEST ONE VIEW, PORTABLE ([id number]) INDICATIONS: 51-year-old male on ventilator. TECHNIQUE: One view of the chest was acquired. COMPARISON: [facility], CR, XR CHEST 1VW (PORTABLE), 06/12/2016, 5:11. [facility], CR, XR CHEST 1VW (PORTABLE), 06/11/2016, 1:30. [facility], CR, XR CHEST 1VW (MARLENY BLE), 06/10/2016, 20:09. FINDINGS: Surgical changes and devices: Endotracheal tube and nasogastric tube remain in expected positions, a s well as right internal jugular central venous catheter. Lungs and pleura: No pleural effusions or pneumothorax. Lung volumes are decreased. No acute airsp laverne opacities. Mediastinum: Mediastinal contours appear normal. Heart size is normal given the AP technique and lo w lung volumes. Bones and chest wall: No suspicious bony lesions. Overlying soft tissues appear unremarkable. IMPRESSION: Decreased lung volumes, without acute cardiopulmonary disease. Dictated by: Neil Velasco M.D. on 06/13/2016 at 6:54 Approved by: Neil Velasco M.D. on 06/13/2016 at 6:55
[2016-06-13] MEDS ORDERED: Calcium Chl 10% (Gm) Inj 1 GM in Dextrose 5% 100 ML IV ONE (07:40)
--- NOTE | 2016-06-13 07:43 | PCM.PNMED ---
Subjective Date of Service Jun 13, 2016 Subjective Patient is intubated and sedated. ROS and subjective not obtainable. Exam Vital Signs Vital Sign - Last Date Time Temp Pulse Resp B/P Pulse Ox O2 Delivery O2 Flow Rate FiO2 06/13/16 04:52 109 91/44 99 45 06/13/16 04:18 38.2 20 Mechanical Ventilator 06/10/16 18:20 4 Intake and Output 06/12/16 06/12/16 06/13/16 Cumulative From/Thru 15:00 23:00 07:00 06/10/16 00:53 - 06/13/16 06:26 Intake Total 2549 ml 2013 ml 30591 ml Output Total 1550 ml 1175 ml 07236 ml Balance 999 ml 838 ml -3210 ml Intake Oral 0 ml IV Total 2174 ml 1694 ml 07623 ml Tube Feeding 214 ml 214 ml Autotransfusion 2400 ml Packed Cells 375 ml 975 ml FFP 400 ml Tube Irrigant 105 ml 105 ml Output Urine Total 1525 ml 1175 ml 54574 ml Gastric Drainage Total 25 ml 250 ml Estimated Blood Loss 300 ml # Bowel Movements 0 Exam General: Obese pale appearing sedated on ventilator HEENT: sclerae anicteric, face symmetric Chest: Generally clear to auscultation; CVC present Cardiac: S1S2, no murmur Abdomen: Reduced bowel sounds, soft non-tender; Weathers catheter present Extremities: 1+ pitting edema Neuro: Sedated, cranial nerves appear symmetric Patient is well sedated. ET and OG in place. IVs and Medications Medications Reviewed: Medications were reviewed in detail Lab and Diagnostics Result Diagram: 06/13/16 0345 06/13/16 0345 Microbiology MRSA negative X-Rays, CTs and MRIs PROCEDURE: X-RAY CHEST ONE VIEW, PORTABLE ([id number]) IMPRESSION: 1. Markedly rotated patient. Central venous catheter is projected over the expected region of the SVC. However, repeat study without rotation is recommended. Dictated by: Lois Watt M.D. on 06/10/2016 at 21:07 PROCEDURE: X-RAY CHEST ONE VIEW, PORTABLE ([id number]) IMPRESSION: Bibasilar atelectasis versus aspiration or pneumonia. Correlate clinically. Dictated by: Victorino RADER Interpreted: Lizzy Mays MD on 06/12/2016 at 9:41 . Additional Diagnostics PROCEDURE: EMBOLIZATION OF BLEED IMPRESSION: 1. Status post coil embolization of the right internal iliac artery. Please note , despite the lack of active extravasation visualized on the study, the decision was made to embolize the right internal iliac artery as the patients clinical status suggested continued, occult arterial hemorrhage. Dictated by: Lois Watt M.D. on 06/11/2016 at 13:20 . Assessment & Plan # Acute respiratory failure, airway protection. Secondary to hypovolemic shock from postoperative blood loss. Oxygenation is remaining good with no significant pneumonia. Patient is highly agitated when sedation is lightened. Chest x-ray shows bibasilar atelectasis. Minimal secretions. - ventilator bundle ordered; chlorhexidine - sedation with midazolam, fentanyl, propofol; daily sedation vacation - SBT when clinically stable - ICU service is following - He is still on FiO2 of 0.45. He is having a breathing trial this AM unless he becomes agitated on vat packer sedation. -CXR is unremarkable 06/13. # Fever, leukocytosis. Low-grade fever on 06/12 of 38.0, but stress leukocytosis is improving. Chest x-ray shows bibasilar haziness consistent with atelectasis versus infiltrate. Tracheal secretions are minimal. There is no Lactic acidosis. Patient remains on Zosyn since the perioperative period. - No ABx on, blood culture x 2 this AM. CXR clear. Check UA/CS. # Hypovolemic shock, acute. Massive transfusion with RBCs, FFP and cryoprecipitate. Secondary to acute blood loss anemia following bladder tumor resection. Required triple pressors. -continue norepinephrine,Vasopressin is off. -MAP goal >65; urine output greater than 0.5 mL-KG-HR # Acute blood loss anemia, acute. Secondary to hematuria in the setting of bladder tumor resection. Goal Hgb 8. - Okay to reduce frequency of hemoglobin monitoring - 4 units to remain in house at all times Next hct at 08:00. # Bladder carcinoma, new diagnosis. Current plan is to achieve hemostasis, then patient to receive neoadjuvant chemotherapy followed by cystectomy later date. - Perioperative antibiotics have been continued - Urology, Dr. Curry is following #Type II diabetes mellitus with hyperglycemia. As of 06/12 Glucose control is well above target. - insulin gtt at present; adjust accordingly - Resume subcutaneous insulin when clinically stable # Obesity, POA. Venous embolism prophylaxis: Mechanical methods only (due to bleeding) GI prophylaxis: Famotidine twice a day Pain Evaluation: Adequate Pain Control GI Prophylaxis: H2 leanna VTE Mechanical Devices: Intermittant Pneumatic CD Resuscitation Status: CPR: Attempt Resuscitation Time spent 40 min Enrico Fields MD Jun 13, 2016 07:43
[2016-06-13] MEDS: Norepinephrine 8,000 mCg/250 mL D5W Premix IV PRN (09:02)
[2016-06-13] MEDS: Dextrose 5% 0.9% NaCl 1,000 ML IV PRN (09:03)
[2016-06-13] MEDS: Vasopressin Inj 20 UNIT in 0.9% Sodium Chloride 100 ML IV SCH ×2 (09:54→23:58)
[2016-06-13] MEDS ORDERED: Furosemide 10 mg/mL 2 mL Inj IVPUSH ONE (11:25)
[2016-06-13] MEDS ORDERED: Calcium GLUCO 10% (mEq) Inj 9.3 MEQ in Dextrose 5% 100 ML IV ONE (11:55)
--- NOTE | 2016-06-13 12:12 | NUR ---
NUTRITION FOLLOW-UP: ASSESS: POD #3 following TUR bladder tumor. Postoperatively, the patient experienced persistent bleeding, with subsequent hypovolemic shock. He was taken to the cathead operator, where selective embolization of a bladder branch of the internal iliac artery was performed. However within an hour following embolization, the bleeding reoccurred. The patient was returned to the cathead operator, where a nonselective internal iliac embolization was performed. Postembolization, the patient's bladder irrigations have remained relatively clear. He remains intubated, requiring sedation and pressor support. Enteral feeding was initiated today; rate currently 36% goal rate, advancing toward goal. PMHX: HLD, DM. LABS:Glu 130, ca 6.6, AST 302, ALT 392, Alb 2.5. MEDS:Norepi, Levophed, insulin, versed, fentanyl. Propofol currently discontinued. GI: No BM reported x 3 D. SKIN: Guero 10. WT: 152.9 kg, BMI 45.0 kg/m2, IBW 80.9kg. Admit weight: 134.6 kg. DIET: NPO ENTERAL FEEDING: Glucerna 1.5 rate currently 25 ml/hr, advancing 10 ml every 4 hr. to goal rate 70 ml/hr. Goal rate will provide 2310 kcal and 127g pro (86% kcal, 100% estimated protein needs) EST. NEEDS: vent, BMI Kcals: 2690-2960kcal/day (20-22kcal/kg) Pro: 120-145g/day (1.5-1.8g/kg IBW) Fluids:~2960-3350ml/day (22-25ml/kg) NUTRITION DIAGNOSIS: 1) Inadequate oral intake related to decreased ability to consume sufficient energy as evidenced by current NPO / vent status - IMPROVED WITH ENTERAL FEEDING. NUTRITION INTERVENTION: 1) In the event propofol not restarted over weekend, will advance goal rate enteral feeding Wednesday to better meet nutrient needs. 2) Will adjust goal rate based on propofol daily if significant rate change. MONITOR / EVAL: NPO/vent, enteral feeding advance / tolerance, labs, GI, wt, POC, nutrition status. Will continue to monitor per high nutrition risk guidelines
--- NOTE | 2016-06-13 12:40 | PROG NOTE ---
[address] [address] PROGRESS NOTE PATIENT: DIANA CROWELL : 1965 MR#: [id number] ADMIT: 06/10/2016 JOB ID: [id number] DATE: 06/13/2016 PULMONARY CRITICAL CARE PROGRESS NOTE: The patient is a 51-year-old man who underwent emergent resection of a bladder mass on June 10 for massive hematuria that was complicated by hemorrhagic shock requiring right internal iliac artery embolization and respiratory failure requiring mechanical ventilation. INTERVAL HISTORY: This morning his sedation was lightened just a little bit and with this, he began moving slightly more and began having hematuria again. This is similar to events yesterday. He did receive 1 unit of packed red cells yesterday, and his hemoglobin had been 8.3 but has now drifted down to 7.6. Urine has cleared back up and is now out pale straw-colored. REVIEW OF SYSTEMS: Unable to obtain since the patient is intubated. PHYSICAL EXAMINATION: Vital signs reviewed. T-max 38.2 overnight, pulse 100, respirations 12, BP 120/60, sats 94% on 40% FiO2. General: Morbidly obese gentleman lying in bed. Chest: Clear to auscultation. LABORATORIES: Reviewed and notable for WBC normal, hemoglobin 7.6, platelets 107. Coags reviewed from yesterday morning, and INR was 1. Chemistry also reviewed. Calcium continues to be low at 6.6. LFT are improving with AST and ALT down to the 300s from the 400s. Chest x-ray today reviewed and shows very low lung volumes with some bibasilar atelectasis. ET tube is somewhat high, about 5 cm from the abdelrahman. No focal lung infiltrates. ASSESSMENT AND RECOMMENDATIONS: 1. Hemorrhagic shock following resection of large bladder tumor on June 10 which was done emergently for massive hematuria. 2. Acute blood loss anemia. 3. Acute hypoxic respiratory failure. 4. Status post embolization of right internal iliac artery for postoperative hemorrhage from the bladder. 5. Hypocalcemia. A 51-year-old man who presented to the emergency department with massive hematuria and was taken to the OR on June [address] Lizzy Curry for resection of a large, softball-sized mass from the bladder. This was complicated by massive hemorrhage with 14-16 units of blood products transfused and embolization by Interventional Radiology which had to be attempted twice to stop the bleeding. The patient had been hemodynamically stable but every time we lighten his sedation and he moves even a little bit, he starts having bloody urine again. Yesterday, he dropped his hemoglobin by 1-2 points with this and again, this morning his hemoglobin has drifted down after his sedation was lightened briefly. I do not think we can leave him intubated for too much longer just to avoid him moving. I think probably the best plan would be to extubate him quickly after barely lightening his sedation and then, hopefully, he would be less agitated because his tube is out. However, we would like to check with Urology before doing this. We could not reach Dr. Curry yesterday. Dr. Fisher is solar energy consultant and designer today, so Dr. Ozuna with the [facility] team is going to try to reach her and see if she is okay with this plan. Hemoglobin most recently was 7.6, so we are going to transfuse 1 unit packed red cells. Coags are fine, as are platelets, although somewhat low. We will repeat a dose of Lasix today. He put out 4 L of urine yesterday, and his creatinine has gone up slightly to 1.2. He is tolerating tube feeds well. He is on gastrointestinal prophylaxis but deep venous thrombosis prophylaxis is contraindicated because of the bleeding. CRITICAL CARE TIME: 40 minutes.
[2016-06-13] MEDS ORDERED: Sodium Bicarb (50 mEq) 8.4% 1 mEq/mL 50 mL Syringe ONE (14:21)
[2016-06-13] MEDS: HYDROmorphone 0.5 mg/0.5 mL iSecure Syringe IVPUSH PRN ×5 (14:21→23:41)
--- NOTE | 2016-06-13 18:10 | NUR ---
hemodynamics//hgb/pain/mentation 1 unit PRBCs transfused, hgb 8.2 post transfusion. Weathers with continuous irrigation, straw colored urine output with small amount of bloody sediment. Urine becomes pink/red tinged with activity, returns to straw colored once pt still in bed. ST per steel manager. Normotensive. Sp02 >92% on 4L per NC. SOA reported with exertion, denies at rest. Weak, nonproductive cough. D5NS infusing at 30cc/hr. Insulin gtt continued per protocol, blood glucose stable. Lower abdominal pain adequately controlled with PRN dilaudid. Will continue to monitor.
[2016-06-13] MEDS: fentaNYL 2,500 mCg/250 mL 2,500 MCG in IV Premix 1 EACH IV SCH (20:38)
[2016-06-13] MEDS: Famotidine Inj 20 MG in IV Premix 1 EACH IV SCH (20:40)
[2016-06-14] MEDS: Lactated Ringer's 1,000 ML IV SCH (00:02)
[2016-06-14 00:30] VITALS: BP 122/82; PULSE 107; RESP 18; O2SAT 94
[2016-06-14] MEDS: Piperacillin-Tazo 3.375 Gm Inj 3.375 GM in Dextrose 5% Minibag Plus 50 ML IV SCH ×3 (03:26→18:41)
[2016-06-14] MEDS: HYDROmorphone 0.5 mg/0.5 mL iSecure Syringe IVPUSH PRN ×6 (03:36→19:54)
[2016-06-14 04:30] VITALS: BP 93/60; PULSE 106; RESP 18; O2SAT 96
[2016-06-14 05:46] LABS: BASOPHILS % (AUTO) 0.7 % (0-3); EOSINOPHILS % (AUTO) 4.2 % (0-5); Mean Corpuscular Hemoglobin 29.3 pg (27.0-35.0); Mean Corpuscular Volume 90.4 fL (81-100); NEUTROPHILS % (AUTO) 65.8 % (40-74); Platelet Count 104 bil/L (150-400)
--- NOTE | 2016-06-14 07:26 | NUR ---
Hemodynamics Pt tolerating NC at 4 L well. SPO2 mid 90s. No S/Sx respiratory distress. Pt C/O abd pain 09/21 mediated with Dilaudid with some relief. Continues bladder irrigation active via 3 ways Weathers. Urine dark pink. VSS. Pt is drowsy but follows command appropriately. He is able to help with turning. No overt complications noted.
--- NOTE | 2016-06-14 07:45 | DRSVH ---
PROCEDURE: X-RAY CHEST ONE VIEW, PORTABLE ([id number]) INDICATIONS: Ventilator TECHNIQUE: One view of the chest was acquired. COMPARISON: None. FINDINGS: Surgical changes and devices: Right internal jugular vein central venous catheter is present, tip of which is at the cavoatrial junction. Lungs and pleura: No pleural effusions or pneumothorax. Lungs are clear. Mediastinum: Mediastinal contours appear normal. Heart size is enlarged. Bones and chest wall: No suspicious bony lesions. Overlying soft tissues appear unremarkable. IMPRESSION: No acute process. Dictated by: Florinda Werner M.D. on 06/14/2016 at 7:42 Approved by: Florinda Werner M.D. on 06/14/2016 at 7:43
[2016-06-14 08:00] VITALS: BP 129/65; PULSE 98; RESP 13; O2SAT 95
[2016-06-14] MEDS: Famotidine Inj 20 MG in IV Premix 1 EACH IV SCH (08:10)
--- NOTE | 2016-06-14 08:37 | PCM.PNMED ---
Subjective Date of Service Jun 14, 2016 Subjective Quiet, no distress. Denies abdomen pain. Some chest tightness. No nausea or vomiting. Exam Vital Signs Vital Sign - Last Date Time Temp Pulse Resp B/P Pulse Ox O2 Delivery O2 Flow Rate FiO2 06/14/16 04:30 36.9 106 18 93/60 96 Nasal Cannula 4.00 06/13/16 12:05 45 Intake and Output 06/13/16 06/13/16 06/14/16 Cumulative From/Thru 15:00 23:00 07:00 06/10/16 00:53 - 06/14/16 06:26 Intake Total 2012 ml 649 ml 58541 ml Output Total 2400 ml 58594 ml Balance -388 ml 649 ml -2949 ml Intake Oral 0 ml 0 ml IV Total 1452 ml 649 ml 33274 ml Tube Feeding 170 ml 384 ml Autotransfusion 2400 ml Packed Cells 350 ml 1325 ml FFP 400 ml Tube Irrigant 40 ml 145 ml Output Urine Total 2400 ml 33327 ml Gastric Drainage Total 250 ml Estimated Blood Loss 300 ml # Bowel Movements 0 Exam General: Obese pale appearing sedated on ventilator HEENT: sclerae anicteric, face symmetric Chest: Generally clear to auscultation; CVC present Cardiac: S1S2, no murmur Abdomen: Reduced bowel sounds, soft non-tender; Weathers catheter present Extremities: 1+ pitting edema Neuro: Sedated, cranial nerves appear symmetric Quiet, flat affect. IVs and Medications Medications Reviewed: Medications were reviewed in detail Lab and Diagnostics Result Diagram: 06/14/16 0530 06/14/16 0530 Microbiology MRSA negative X-Rays, CTs and MRIs PROCEDURE: X-RAY CHEST ONE VIEW, PORTABLE ([id number]) IMPRESSION: 1. Markedly rotated patient. Central venous catheter is projected over the expected region of the SVC. However, repeat study without rotation is recommended. Dictated by: Lois Watt M.D. on 06/10/2016 at 21:07 PROCEDURE: X-RAY CHEST ONE VIEW, PORTABLE ([id number]) IMPRESSION: Bibasilar atelectasis versus aspiration or pneumonia. Correlate clinically. Dictated by: Victorino RADER Interpreted: Lizzy Mays MD on 06/12/2016 at 9:41 . Additional Diagnostics PROCEDURE: EMBOLIZATION OF BLEED IMPRESSION: 1. Status post coil embolization of the right internal iliac artery. Please note , despite the lack of active extravasation visualized on the study, the decision was made to embolize the right internal iliac artery as the patients clinical status suggested continued, occult arterial hemorrhage. Dictated by: Lois Watt M.D. on 06/11/2016 at 13:20 . Assessment & Plan # Acute respiratory failure, airway protection. Patient extubated Wednesday, doing well. # Fever, leukocytosis. Improved. Will continue Zosyn to Wednesday, then dc. # Hypovolemic shock, acute. Massive transfusion with RBCs, FFP and cryoprecipitate. Secondary to acute blood loss anemia following bladder tumor resection. Required triple pressors. Improved, patient off pressors. # Acute blood loss anemia, acute. Secondary to hematuria in the setting of bladder tumor resection. Goal Hgb 8. - Okay to reduce frequency of hemoglobin monitoring - 4 units to remain in house at all times HCT stable at this time. # Bladder carcinoma, new diagnosis. Current plan is to achieve hemostasis, then patient to receive neoadjuvant chemotherapy followed by cystectomy later date. - Perioperative antibiotics have been continued - Urology, Dr. Curry is following. Discussed with uro corrections corporal Wednesday. #Type II diabetes mellitus with hyperglycemia. As of 06/12 Glucose control is well above target. - insulin gtt at present; adjust accordingly - Resume subcutaneous insulin when clinically stable, likely later today. # Obesity, POA. Venous embolism prophylaxis: Mechanical methods only (due to bleeding) GI prophylaxis: Famotidine twice a day Pain Evaluation: Adequate Pain Control GI Prophylaxis: H2 leanna VTE Mechanical Devices: Intermittant Pneumatic CD Resuscitation Status: CPR: Attempt Resuscitation Time spent 30 min Enrico Fields MD Jun 14, 2016 08:37
--- NOTE | 2016-06-14 10:21 | NUR ---
Evaluation completed. Please go to "Notes" then click on "Assessments and Notes" (bottom left corner of screen). Then select appropriate discipline tab on top of screen.
[2016-06-14] MEDS ORDERED: Furosemide 10 mg/mL 4 mL Inj IVPUSH ONE (10:40)
[2016-06-14 12:00] VITALS: BP 123/75; PULSE 95; RESP 11; O2SAT 95
--- NOTE | 2016-06-14 13:19 | PROG NOTE ---
[address] [address] PROGRESS NOTE PATIENT: DIANA CROWELL : 1965 MR#: [id number] ADMIT: 06/10/2016 JOB ID: [id number] DATE: 06/14/2016 PULMONARY CRITICAL CARE PROGRESS NOTE: The patient is a 51-year-old man presenting with massive hematuria for which he underwent emergent resection of a bladder mass on June 10, which was complicated by hemorrhagic shock requiring embolization of right internal iliac artery and also respiratory failure requiring mechanical ventilation. INTERVAL HISTORY: He was extubated yesterday and seems to be doing well from a respiratory standpoint, on nasal cannula. The patient says he cannot remember anything that happened preceding this hospitalization and has no memory of it whatsoever. He states he feels "funny and "woozy" and does not feel like he is thinking straight. Most likely, this is an effect of all the sedatives he has been on. Other than that, he denies any complaints of chest pain, shortness of breath, fevers, chills. REVIEW OF SYSTEMS: As above. PHYSICAL EXAMINATION: Vital signs reviewed. Temperature 37, pulse 98, respirations 13. BP 129/65, and sats 95% on 4 L nasal cannula. General: Obese gentleman, lying in bed, slightly flat affect but trying to answer questions appropriately. Speaking very softly, Chest: Clear to auscultation bilaterally. Weathers bag shows bloody urine. LABORATORIES: Reviewed and hemoglobin is 7.9, which is pretty stable over the last 12-24 hours. Cultures: No growth. Procalcitonin is 0.66. Chest x-ray today shows low lung volumes. Minimal patchy bilateral infiltrates which could simply be atelectasis or edema. ASSESSMENT AND RECOMMENDATIONS: 1. Acute hypoxic respiratory failure--extubated on June 13. 2. Hemorrhagic shock with acute blood loss anemia. 3. Large bladder tumor, status post resection on June 10, done emergently for massive hematuria. 4. Embolization of right internal iliac artery for postoperative hemorrhage from the bladder. A 51-year-old man presented to the emergency department with massive hematuria and found to have a large bladder mass which was resected on June [address] Lizzy Curry. This was complicated by massive postoperative hemorrhage requiring massive transfusion and also required two attempts at embolization of the internal iliac artery. He was intubated for the last few days and finally extubated yesterday. Hemoglobin is stable overnight despite blood in the urine which seems to be a small amount compared to previously. He was transfused 1 unit yesterday and has not had any additional blood since then. DVT prophylaxis is on hold. I think his neurologic status and lack of memory of these events is probably not unexpected given how ill he was and the amount of sedation he got to keep him immobile because of the bleeding. I explained this to him. It may take a few days for all the benzos, narcotics, etc., to clear completely from his system. He did get one dose of Lasix yesterday, and with that, he is only about net even, even though he put out 3.5 L of urine. His weight goes up significantly since admission, so I am going to repeat another dose of Lasix today. He is continuing to get hemoglobin checks every 8 hours. Urology will most likely be able to come back and evaluate him tomorrow. Dr. Curry is out until mid week and Dr. Fisher is covering for him, reportedly. With regards antibiotics--He is on Zosyn since his surgery. It is not clear if this was started for prophylaxis because of massive hemorrhage from the genitourinary region, but at this point, his procalcitonin has gone up slightly yesterday to 0.66, so I would like to make sure he is not developing an aspiration pneumonia. I added on another procalcitonin today. If this is still positive then I think we should continue Zosyn for a total of seven days. Dr. Stewart takes over the pulmonary service tomorrow, but we may not plan on seeing the patient if he continues to be stable. Please contact the pulmonary service for any problems or concerns.
--- NOTE | 2016-06-14 15:15 | NUR ---
Social Work Note: Continued Discharge Planning Data& Assessment: Pt has been extubated. SW met with pt and pt family at bedside to introduce self and assess for any unmet needs. SW provided SW phone number on pt white board.PT is recommending SNF via BLS at this time, PT to continue to work with pt. SW to follow for PT recommendations after pt is able to participate further and engage more in the PT eval. Pt denies any other needs at this time. Plan: Anticipated discharge home with home health vs. SNF. Anticipating pt will be able to engage more with PT after recovering from extubation. SW to continue to follow for ongoing PT evaluation and recommendations. ANGEL Ortiz
[2016-06-14] MEDS: Dextrose 5% 0.9% NaCl 1,000 ML IV PRN (15:38)
[2016-06-14 16:00] VITALS: BP 110/60; PULSE 92; RESP 12; O2SAT 98
--- NOTE | 2016-06-14 17:56 | NUR ---
Mentation/Pain/Bladder Irrigation/Activity/PO Patient a little confused, forgetful this morning becoming more clear t/o day. C/O bladder pain as well as bladder fullness. Dilaudid for bladder spasm, effective. Weathers with irrigant flowing. Floey flushed with syringe and it was noted that clots were plugging catheter output. Catheter flushed and a large amount of wood colored urine came out. Catheter continuing to clot off requiring flushing intermittently. Overall, more bleeding/clotting today. H and H stable so far and is being checked q 8 hours. Hospitalist aware of the bleeding and clots. Vitals stable. Turning patient in bed for comfort. Speech eval not done today so patient was offered clear liquids to assess swallow. Patient stated, "I'm not hungry". No swallow eval done. Continuing to monitor closely.
[2016-06-14 20:35] VITALS: BP 137/68; PULSE 89; RESP 14; O2SAT 99
[2016-06-14] MEDS: Ondansetron 2 mg/mL 2 mL Inj IVPUSH PRN (21:04)
[2016-06-15] VITALS (8 sets, daily range): BP systolic 114–128; BP diastolic 58–72; PULSE 85–92; RESP 12–16; O2SAT 96–99
[2016-06-15] MEDS: HYDROmorphone 0.5 mg/0.5 mL iSecure Syringe IVPUSH PRN ×4 (00:48→11:02)
[2016-06-15] MEDS: Piperacillin-Tazo 3.375 Gm Inj 3.375 GM in Dextrose 5% Minibag Plus 50 ML IV SCH ×3 (03:14→18:40)
--- NOTE | 2016-06-15 06:32 | NUR ---
Bladder irrigation/Pain Pt able to report bladder spasms and "urinary retention pain". CBI at faster rate d/t dark red urine seen. Twice, pt had to have thakkar irrigated with extensive clotting. Monitoring of H/H shows H/H stable. aware and did authorize one time early dosing of pain meds during second irrigation. Currently pt reports adequate pain control with current regimen. Will continue to monitor. Care ongoing
--- NOTE | 2016-06-15 07:54 | PCM.PNMED ---
Subjective Date of Service Jun 15, 2016 Subjective No chest or abdomen pain. No nausea. Ongoing hematuria. Some confusion. No dyspnea. Exam Vital Signs Vital Sign - Last Date Time Temp Pulse Resp B/P Pulse Ox O2 Delivery O2 Flow Rate FiO2 06/15/16 07:45 36.7 89 13 127/63 96 Nasal Cannula 4.00 06/13/16 12:05 45 Intake and Output 06/14/16 06/14/16 06/15/16 Cumulative From/Thru 15:00 23:00 07:00 06/10/16 00:53 - 06/15/16 06:27 Intake Total 494 ml 560 ml 21581 ml Output Total 2100 ml 3050 ml 2700 ml 22403 ml Balance -2100 ml -2556 ml -2140 ml -9745 ml Intake Oral 0 ml IV Total 494 ml 560 ml 47698 ml Tube Feeding 384 ml Autotransfusion 2400 ml Packed Cells 1325 ml FFP 400 ml Tube Irrigant 145 ml Output Urine Total 2100 ml 3050 ml 2700 ml 53885 ml Gastric Drainage Total 250 ml Estimated Blood Loss 300 ml # Bowel Movements 0 0 Exam General: Obese pale appearing sedated on ventilator HEENT: sclerae anicteric, face symmetric Chest: Generally clear to auscultation; CVC present Cardiac: S1S2, no murmur Abdomen: Reduced bowel sounds, soft non-tender; Weathers catheter present Extremities: 1+ pitting edema Neuro: Sedated, cranial nerves appear symmetric Quiet, flat affect. No skin rash IVs and Medications Medications Reviewed: Medications were reviewed in detail Lab and Diagnostics Result Diagram: 06/15/16 0545 06/14/16 0530 Microbiology MRSA negative X-Rays, CTs and MRIs PROCEDURE: X-RAY CHEST ONE VIEW, PORTABLE ([id number]) IMPRESSION: 1. Markedly rotated patient. Central venous catheter is projected over the expected region of the SVC. However, repeat study without rotation is recommended. Dictated by: Lois Watt M.D. on 06/10/2016 at 21:07 PROCEDURE: X-RAY CHEST ONE VIEW, PORTABLE ([id number]) IMPRESSION: Bibasilar atelectasis versus aspiration or pneumonia. Correlate clinically. Dictated by: Victorino Long RRA Interpreted: Lizzy Mays MD on 06/12/2016 at 9:41 . Additional Diagnostics PROCEDURE: EMBOLIZATION OF BLEED IMPRESSION: 1. Status post coil embolization of the right internal iliac artery. Please note , despite the lack of active extravasation visualized on the study, the decision was made to embolize the right internal iliac artery as the patients clinical status suggested continued, occult arterial hemorrhage. Dictated by: Lois Watt M.D. on 06/11/2016 at 13:20 . Assessment & Plan # Acute respiratory failure, intubated for airway protection. Patient extubated Wednesday, doing well. # Fever, leukocytosis. Resolved. Will continue Zosyn to Wednesday, then dc. # Hemorrhagic shock, resolved. Massive transfusion with RBCs, FFP and cryoprecipitate. Secondary to acute blood loss anemia following bladder tumor resection. Required triple pressors. Improved, patient off pressors. # Severe Acute blood loss anemia, acute. Secondary to hematuria in the setting of bladder tumor resection. Goal Hgb 8. - Okay to reduce frequency of hemoglobin monitoring - 4 units to remain in house at all times HCT stable at this time. Goal is above 21. # Bladder carcinoma, new diagnosis. Current plan is to achieve hemostasis, then patient to receive neoadjuvant chemotherapy followed by cystectomy later date. - Perioperative antibiotics have been continued - Urology, Dr. Curry is following. Discussed with uro admissions consultant Wednesday. Will ask urology to see today. #Type II diabetes mellitus with hyperglycemia. As of 06/12 Glucose control is well above target. - insulin gtt at present; adjust accordingly - Resume subcutaneous insulin when clinically stable, likely later today. # Obesity, POA. Venous embolism prophylaxis: Mechanical methods only (due to bleeding) GI prophylaxis: Famotidine twice a day Transfer IMCU status Pain Evaluation: Adequate Pain Control GI Prophylaxis: H2 leanna VTE Mechanical Devices: Intermittant Pneumatic CD Resuscitation Status: CPR: Attempt Resuscitation Time spent 35 min Enrico Fields MD Jun 15, 2016 07:54
[2016-06-15 08:53] LABS: APPEARANCE,URINE SLIGHTLY CLOUDY (CLEAR,HAZY); COLOR,URINE RED (YELLOW)
[2016-06-15 08:54] LABS: OCCULT BLOOD,URINE LARGE (NEGATIVE); PH,URINE 6.5 (5.0-8.0); UROBILINOGEN,URINE NORMAL (NORMAL)
--- NOTE | 2016-06-15 09:21 | NUR ---
Art line: Art line d/c'd per MD orders, manual pressure held, no bleeding noted. Care ongoing.
--- NOTE | 2016-06-15 10:41 | NUR ---
NUTRITION FOLLOW-UP: ASSESS: 51 YO M POD #5 following TUR bladder tumor. Postoperatively, the patient experienced persistent bleeding, with subsequent hypovolemic shock. Pt s/p lab coordinator. Pt extubated 06/13. Speech therapy eval ordered. PMHX: HLD, DM. LABS: (06/14) : Glu 132, Ca 7.3, AST 148, ALT 247, Alb 2.3 MEDS: Reviewed. GI: No BM noted. SKIN: Guero 10. WT: 153.4 kg, BMI 45.9 kg/m2, IBW 80.9 kg. Admit weight: 134.6 kg. DIET: NPO ENTERAL FEEDING: (ON HOLD) Glucerna 1.5 with goal rate of 70 ml/hr. ESTIMATED NEEDS: BMI Calories: 3790-6352 kcal/day (20-22 kcal/kg BW) Protein: 104-130 g/day (1.1-1.5g/kg IBW) Fluids:~3036-0599 ml/day (22-25 ml/kg) NUTRITION DIAGNOSIS: 1) Inadequate oral intake related to decreased ability to consume sufficient energy as evidenced by current NPO/vent status - PERSISTS. . NUTRITION INTERVENTION: 1) Diet advance per speech therapy. If unable to advance diet recommend continuing enteral nutrition. MONITOR/EVALUATE: NPO status, diet advance, ST, labs, GI, wt, POC, nutrition status. Follow per high nutrition risk guidelines Addendum: 06/15/16 at [address] Correction to estimated needs above due to BMI >40 using admit wt: Calories: 1579-6473 kcal/day (25-30 kcal/kg Adj. BW of 99.0 kg), Protein: 119-149 g/day (1.2-1.5 g/kg Adj. BW)
--- NOTE | 2016-06-15 12:02 | NUR ---
Evaluation completed. Please go to "Notes" then click on "Assessments and Notes" (bottom left corner of screen). Then select appropriate discipline tab on top of screen.
[2016-06-15] MEDS: HYDROMORPHONE 1 MG IVPUSH PRN ×2 (14:14→16:24)
--- NOTE | 2016-06-15 14:56 | PATH ---
SURGICAL PATHOLOGY Attending Physician:Lizzy Curry MD () CASE STATUS: Signed Out PATIENT NAME: DIANA CROWELL PID: [id number] : 1965 DATE COLLECTED:06/10/2016 00:00 SPECIMEN: Bladder, Biopsy CLINICAL HISTORY: HEMATURIA BLADDER CANCER 1). 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 No definite muscularis propria invasion identified. ICD10 C67.9 NOTE: This high-grade papillary urothelial carcinoma has a prominent endophytic growth pattern and necrosis, making it difficult to evaluate for lamina propria invasion. The case is being sent to the [facility]atomic Pathology for review to assess for invasion. An addendum will be issued with these findings. Preliminary diagnostic findings were reported to Dr. Curry's office on 06/15/[address] Sung. GROSS DESCRIPTION: The specimen is received in formalin, labeled with the patient's name and "bladder tumor". It consists of multiple almanzar-pink to almanzar-brown, soft tissue fragments admixed with clotted blood measuring 9.0 x 8.5 x 3.2 cm in aggregate. The specimen is representatively submitted in cassettes A-J. (SHIRA:[id number]) MICRO DESCRIPTION: Sections are of multiple fragments of bladder tissue with a neoplasm characterized by a papillary structure and more extensive endophytic growth pattern with nests of urothelial cells with moderate mitotic activity, enlarged nuclei, and extensive necrosis. Fragments of muscularis propria are present with no definite invasion. ICD-9 CODES: CPT CODES: 10534 PROCEDURE/ADDENDA: Addendum SPI Addendum Diagnosis Slides reviewed at [facility] Pathology, by Opal Dunn MD, PhD Bladder tumor, transurethral resection of bladder tumor: Papillary urothelial carcinoma, high grade Type/grade comment: Predominant endophytic pattern of growth. Stage: Invasion of lamina propria (pT1). Extent of LP invasion: Focal Angiolymphatic invasion: Absent Muscularis propria: Present Comment: We agree with your assessment as to the predominant endophytic growth pattern of this high-grade papillary urothelial carcinoma. Focally, rare atypical cells, cell clusters and irregular nests of neoplasm infiltrate into the superficial lamina propria and papillary stalk, and represent focal lamina propria invasion. There are also a few tumor nests with focal mucin extravasation (block I). Dr. Curry also reviewed select slides and agrees with the diagnosis. Addendum Comment Please see [facility] Pathology Report [id number] for complete details. Electronically Signed Out Geetha Sung MD Electronically Signed Out Geetha Sung MD [facility] [address], [place] [address] Technical component performed at [facility], [address], [place], [address]
--- NOTE | 2016-06-15 16:00 | NUR ---
Social Work Note - Continued Discharge Planning: D/A: The Pt is 51 y/o male that is now on day 5 of hospitalization for bladder mass. PT werner completed 06/14, recommending D/C to SNF with PT/OT/ST via BLS. Possibility of upgrading D/C recommendations if Pt progresses towards mobility goals during hospital stay. SW met with the Pt and son to discuss PT recommendations and SNF options, list explored and provided. The Pt reported that he was feeling overwhelmed and would like for SW to follow-up in the morning regarding SNF options. The Pts son also inquired about the possibility of SNF options closer to their home in [place]. MD Curry from Urology following. SW will continue to follow. P: The Pt is not medically stable for discharge at this time, SW to follow up with Pt regarding SNF options. Dianna Mulligan, GAS ATTENDANT Medical Registrar ANGEL Jacobs
--- NOTE | 2016-06-15 16:04 | PCM.PNSURG ---
Subjective Date of Service: Jun 15, 2016 Date of Service: Jun 15, 2016 Visit Information: Reason for Visit Bladder Mass Surgery/Surgery Date Post-Op Day # 5 Date of Admission: Jun 10, 2016 at 00:46 Hospital Day # Subjective: Pt supine during exam. denies any abdominal or chest pain. hematuria ongoing. pt is somewhat confused during exam and during conversation. reports occasional bladder cramping and suprapubic discomfort, occurs with bladder irrigation. Postop General: No Shortness of Breath, No Chest Pain Objective Vital Sign- Last 8 Hours Date Time Temp Pulse Resp B/P Pulse Ox O2 Delivery O2 Flow Rate FiO2 06/15/16 12:00 Supplement Oxygen 06/15/16 11:26 90 13 128/72 97 Nasal Cannula 4.00 06/15/16 08:30 Supplement Oxygen 06/15/16 08:00 90 Intake and Output- Last 8 Hour 06/15/16 Cumulative From/Thru 07:00 06/10/16 00:53 - 06/15/16 06:27 Intake Total 560 ml 62643 ml Output Total 2700 ml 73229 ml Balance -2140 ml -9745 ml Intake Oral 0 ml IV Total 560 ml 28961 ml Tube Feeding 384 ml Autotransfusion 2400 ml Packed Cells 1325 ml FFP 400 ml Tube Irrigant 145 ml Output Urine Total 2700 ml 25063 ml Gastric Drainage Total 250 ml Estimated Blood Loss 300 ml # Bowel Movements 0 0 General: Cooperative, No Acute Distress, Other (supine, sleepy, sedated on ventilator) Neck: Supple Abdomen: Soft, Non-tender, Other (: ) Extremities: Edema Localized (1+ pitting edema to BLE) Neuro: Grossly Neurologically Intact Result Diagram: 06/15/16 0545 06/14/16 0530 Lab & Micro Results: MRSA negative Eosinophil urine stain negative Assessment & Plan Impression Patient is a 51YOM who presented to the ER on 06/10/16 with gross hematuria and dysuria. He has presented to [facility] several times for symptoms, was initially treated for presumed UTI and catheter was placed. Multiple ER visits following initial thakkar to replace catheter due to clot retention. CT revealed right bladder mass. Pt underwent TURBT on 06/10/[address] Curry. Unfortunately, patient experienced persistent post operative bleeding and developed hypovolemic shock. He was taken to the microbiology lab analyst for embolization twice that evening and required pressors to maintain adequate blood pressure. He was initially intubated however was extubated Wednesday without difficulty, is still on ventilator, hgb/hct stable at this time and no longer requiring pressors. 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 It was discussed with patient that after he stabilizes and is discharged he will require additional therapy, including neoadjuvant chemotherapy and eventual cystectomy. Patient will be discharged when appropriate with indwelling thakkar, and will follow up in our office as an outpatient for further management of bladder cancer. We will place a referral for a Medical Oncologist as well. Continue routine catheter care as well as bladder irrigations as needed. Fever and Leukocytosis have resolved, Zosyn was stopped today. Urology will continue to follow Problems: Resuscitation Status: CPR: Attempt Resuscitation Paulina Duran PA-C Jun 15, 2016 16:04
[2016-06-15] MEDS: LORazepam 1 mg Tablet PO PRN (17:39)
--- NOTE | 2016-06-15 18:00 | NUR ---
Pain/hematuria Pt having bladder/abdominal pain and spasms intermittently. Gave 1mg IV dilaudid with moderate relief, also tried ativan PO. Notified MD of pt's pain and he increased frequency to q2h instead of q3h. Pt continues to have gross hematuria and on 3 way irrigation almost wide open, with watermelon pink urine with tiny clots. Frequent rounding continues. Family at bedside.
[2016-06-15] MEDS: HYDROmorphone 1 mg/mL Inj IVPUSH PRN (21:20)
[2016-06-15] MEDS: Dextrose 5% 0.9% NaCl 1,000 ML IV PRN (22:50)
[2016-06-16] VITALS (9 sets, daily range): BP systolic 113–134; BP diastolic 60–78; PULSE 84–96; RESP 9–18; O2SAT 93–100
[2016-06-16] MEDS: HYDROmorphone 1 mg/mL Inj IVPUSH PRN ×9 (01:12→23:06)
[2016-06-16] MEDS: Piperacillin-Tazo 3.375 Gm Inj 3.375 GM in Dextrose 5% Minibag Plus 50 ML IV SCH ×3 (02:28→18:48)
--- NOTE | 2016-06-16 05:17 | NUR ---
Bladder Pt on 3-way continuous irrigation with thakkar; urine light pink with rare clots. Pt c/o significant bladder spasms x2 this shift and reports feeling acute changes when catheter clots. Manual irrigation administered x3 with 15mls each and successful reestablishment of flow. Pt medicated with 1mg Dilaudid for spasms, reports complete relief after administration. VSS, oxygen weaned to 2L NC and SpO2 stable at 94-96%. Insulin gtt infusing at 1ml/hr; BGs stable between 100-120 throughout shift - Q2H BG checks. Pt able to rest intermittently.
--- NOTE | 2016-06-16 09:04 | PCM.PNMED ---
Subjective Date of Service Jun 16, 2016 Subjective No chest pain, or dyspnea. No nausea. Some abdomen pain around bladder. No fevers or chills. Exam Vital Signs Vital Sign - Last Date Time Temp Pulse Resp B/P Pulse Ox O2 Delivery O2 Flow Rate FiO2 06/16/16 07:57 36.8 87 15 116/64 96 Nasal Cannula 2.00 06/13/16 12:05 45 Intake and Output 06/15/16 06/15/16 06/16/16 Cumulative From/Thru 15:00 23:00 07:00 06/10/16 00:53 - 06/16/16 06:22 Intake Total 691 ml 553 ml 70627 ml Output Total 750 ml 2000 ml 85524 ml Balance -59 ml -1447 ml -12400 ml Intake Oral 200 ml 200 ml IV Total 491 ml 553 ml 74515 ml Tube Feeding 384 ml Autotransfusion 2400 ml Packed Cells 1325 ml FFP 400 ml Tube Irrigant 145 ml Output Urine Total 750 ml 2000 ml 51772 ml Gastric Drainage Total 250 ml Estimated Blood Loss 300 ml # Bowel Movements 0 Exam General: Obese pale appearing sedated on ventilator HEENT: sclerae anicteric, face symmetric Chest: Generally clear to auscultation; CVC present Cardiac: S1S2, no murmur Abdomen: Reduced bowel sounds, soft non-tender; Weathers catheter present Extremities: 1+ pitting edema Neuro: Sedated, cranial nerves appear symmetric Quiet, flat affect. No skin rash IVs and Medications Medications Reviewed: Medications were reviewed in detail Lab and Diagnostics Result Diagram: 06/15/16 0545 06/14/16 0530 Microbiology MRSA negative X-Rays, CTs and MRIs PROCEDURE: X-RAY CHEST ONE VIEW, PORTABLE ([id number]) IMPRESSION: 1. Markedly rotated patient. Central venous catheter is projected over the expected region of the SVC. However, repeat study without rotation is recommended. Dictated by: Lois Watt M.D. on 06/10/2016 at 21:07 PROCEDURE: X-RAY CHEST ONE VIEW, PORTABLE ([id number]) IMPRESSION: Bibasilar atelectasis versus aspiration or pneumonia. Correlate clinically. Dictated by: Victorino Long RRSid Interpreted: Lizzy Mays MD on 06/12/2016 at 9:41 . Additional Diagnostics PROCEDURE: EMBOLIZATION OF BLEED IMPRESSION: 1. Status post coil embolization of the right internal iliac artery. Please note , despite the lack of active extravasation visualized on the study, the decision was made to embolize the right internal iliac artery as the patients clinical status suggested continued, occult arterial hemorrhage. Dictated by: Lois Watt M.D. on 06/11/2016 at 13:20 . Assessment & Plan # Acute respiratory failure, intubated for airway protection. Patient extubated Wednesday, doing well. # Fever, leukocytosis. Resolved. Will continue Zosyn to Wednesday, then dc. # Hemorrhagic shock, resolved. Massive transfusion with RBCs, FFP and cryoprecipitate. Secondary to acute blood loss anemia following bladder tumor resection. Required triple pressors. Improved, patient off pressors. # Severe Acute blood loss anemia, acute. Secondary to hematuria in the setting of bladder tumor resection. Goal Hgb 8. - Okay to reduce frequency of hemoglobin monitoring - 4 units to remain in house at all times HCT stable at this time. Goal is above 21. # Bladder carcinoma, new diagnosis. Current plan is to achieve hemostasis, then patient to receive neoadjuvant chemotherapy followed by cystectomy later date. - Perioperative antibiotics have been continued - Urology, Dr. Curry is following. Discussed with uro lamination inspector Wednesday. Urology asks for dc when able (based on resolution of hematuria) and outpt follow up regarding tumor (high grade). Tumor board will discuss in the next week. #Type II diabetes mellitus with hyperglycemia. As of 06/12 Glucose control is well above target. - insulin gtt at present; adjust accordingly - Resume subcutaneous insulin today. # Obesity, POA. Venous embolism prophylaxis: Mechanical methods only (due to bleeding) GI prophylaxis: Famotidine twice a day Transfer IMCU status GI Prophylaxis: H2 leanna VTE Mechanical Devices: Intermittant Pneumatic CD Resuscitation Status: CPR: Attempt Resuscitation Time spent 30 min Enrico Fields MD Jun 16, 2016 09:04
[2016-06-16] MEDS ORDERED: Glucose 40% Oral Gel 15 Gm Tube PO PRN (09:05)
[2016-06-16] MEDS: Insulin LISPRO 300 Unit/3 mL Inj SUBQ SCH ×3 (11:43→20:22)
[2016-06-16] MEDS ORDERED: Acetaminophen IV 1,000 MG in IV Premix 1 EACH IV PRN (15:00)
[2016-06-16 15:31] LABS: Mean Corpuscular Volume 89.4 fL (81-100)
--- NOTE | 2016-06-16 18:01 | NUR ---
Bladder Pt requiring nearly wide-open continuous irrigant this shift. When decreased flow rate, urine became dark red and pt had significant increase in pain. Attempted to decrease rate a few times during the shift. Called urology to update on inability to successfully decrease flow rate, no new orders placed. Hydromorphone IV effectively relieves pain, however pt is lethargic and unable to work with PT/PIG BREEDER, then large spikes in pain between doses. IV Tylenol added, hanging at this time, will f/u on efficacy. Pt able to stand with PT today, see note. PIG BREEDER eval'd pt, see note. Pt now on full liquid diet. Reports indigestion and mild nausea after eating small amt food. PO percocet also added to MAR, have not yet administered.
[2016-06-16] MEDS: oxyCODONE-Acetamin 5-325 mg Tablet PO PRN (18:45)
[2016-06-16] MEDS: Ondansetron 2 mg/mL 2 mL Inj IVPUSH PRN (18:45)
[2016-06-16] MEDS ORDERED: KCl 40 mEq/100 mL Premix (K 3 - 3.7 & Creat < 2) IV ONE (22:05)
--- NOTE | 2016-06-16 23:16 | CONS ---
[address] [address] CONSULTATION REPORT PATIENT: DIANA CROWELL : 1965 MR#: [id number] ADMIT: 06/10/2016 JOB ID: [id number] DATE OF SERVICE: 06/16/2016 REASON FOR CONSULTATION: High-grade bladder urothelial carcinoma. REQUESTING PROVIDER: Lizzy Curry MD. HISTORY OF PRESENT ILLNESS: The patient is a 51-year-old nonsmoker gentleman admitted to this hospital on June 10 as direct transfer from [facility]. He initially referred several times to [facility] Emergency Department with gross hematuria and pain with urination, and was treated for UTI. A Weathers catheter was placed, which needed replacement several times due to blockage by blood clots. A CT scan was done at [facility] which showed right-sided bladder mass measuring 10 x 5.8 cm, heterogeneous with punctate and peripheral calcification. There was also right-sided hydronephrosis. He underwent an incomplete TURBT by Dr. Curry on June 10. The tumor was huge, filling most of bladder, minimum dimension 10 cm. It was very hemorrhagic. Post procedure, the patient was extubated but anand hematuria worsened, he became hemodynamically unstable and was coded. He was reintubated and placed on vasopressors and subsequently received around 15 units of packed red blood cells, as well as FFP and cryoprecipitate. He is now extubated again and hemodynamically stabilized. He is currently receiving continuous bladder irrigation. Pathology is positive for high-grade papillary urothelial carcinoma with prominent endophytic growth and necrosis. There was no definite muscularis propria invasion, but based on size and aggressive clinical behavior, it is felt that this tumor is definitely muscle invasive. The patient is a candidate for neoadjuvant cisplatin based chemotherapy followed by radical cystectomy. Dr. Curry contacted me this morning to plan for neoadjuvant chemotherapy when his condition is stabilized. PAST MEDICAL HISTORY: 1. Type 2 diabetes, insulin-dependent. 2. Hyperlipidemia. PAST SURGICAL HISTORY: 1. Left shoulder arthroscopy. 2. TURBT. HOME MEDICATIONS: 1. Atorvastatin. 2. Fenofibrate. 3. Gabapentin. 4. Insulin detemir. 5. Lisinopril. 6. Tamsulosin. SOCIAL HISTORY: He is an [employer] , and has been working recently in a [employer]. He is a nonsmoker. He is and his is present in his hospital room. They live in [place]. LABORATORIES: Reviewed. IMPRESSION AND RECOMMENDATIONS: This patient is definitely a candidate for neoadjuvant cisplatin based chemotherapy, followed by radical cystoprostatectomy and bilateral pelvic lymph node dissection. I had a brief visit this evening with him and his , and introduced myself. Explained that in near future, most likely next week, when his condition is further stabilized, we plan to start his neoadjuvant chemotherapy. I plan to treat him with dose-dense MVAC, which is a two day regimen given every two weeks for 3-4 cycles, after which he will undergo planned radical cystoprostatectomy. I also requested Dr. Enrico Fields to obtain a contrast CT scan of the chest, abdomen and pelvis for assessment of pelvic lymphadenopathy and possible distant metastases. I will be out of town for the rest of this week, but I will make plans to start neoadjuvant chemotherapy early next week. MTDD
[2016-06-17] VITALS (19 sets, daily range): BP systolic 113–158; BP diastolic 62–84; PULSE 82–93; RESP 6–23; O2SAT 92–100
[2016-06-17] MEDS: oxyCODONE-Acetamin 5-325 mg Tablet PO PRN (01:53)
[2016-06-17] MEDS: Piperacillin-Tazo 3.375 Gm Inj 3.375 GM in Dextrose 5% Minibag Plus 50 ML IV SCH ×3 (03:12→19:06)
[2016-06-17] MEDS: HYDROmorphone 1 mg/mL Inj IVPUSH PRN ×5 (03:12→11:02)
[2016-06-17 03:14] LABS: BASOPHILS % (AUTO) 0.7 % (0-3); EOSINOPHILS % (AUTO) 5.2 % (0-5); MONOCYTES % (AUTO) 10.1 % (4-12); Mean Corpuscular Hemoglobin 29.5 pg (27.0-35.0); Mean Corpuscular Volume 88.6 fL (81-100); NEUTROPHILS % (AUTO) 59.8 % (40-74)
[2016-06-17 03:38] LABS: Platelet Count 178 bil/L (150-400)
--- NOTE | 2016-06-17 04:59 | NUR ---
Pain Management / Bladder Pt c/o intermittent bladder spasms throughout shift ranging from 6-10/10; Dilaudid 1mg administered PRN with total relief of pain. Pt requested Percocet this shift to assess effectiveness; reports completely ineffective for pain relief. Ongoing bladder irrigation; output color ranges from light yellow to medium red, unrelated to flow rate; no clotting this shift. VSS; attempted to wean pt to RA this shift for HS but SpO2 87-91%; 2L NC placed per pt request for rest. Tele SR 80s.
[2016-06-17] MEDS ORDERED: Dexamethasone 4 mg/mL Inj ONE (08:00)
[2016-06-17] MEDS ORDERED: Ondansetron 2 mg/mL 2 mL Inj ONE (08:00)
[2016-06-17] MEDS ORDERED: Lidocaine PF 1% 30 mL Inj ONE (08:00)
[2016-06-17] MEDS ORDERED: Propofol 10,000 mCg/mL 20 mL Inj ONE (08:00)
[2016-06-17] MEDS ORDERED: Phenylephrine/NS 100 mCg/mL 10 mL Syringe IVPUSH ONE (08:00)
[2016-06-17] MEDS ORDERED: fentaNYL-PF 50 mCg/mL 2 mL Inj ONE (08:00)
[2016-06-17] MEDS: Insulin LISPRO 300 Unit/3 mL Inj SUBQ SCH ×4 (08:00→22:00)
[2016-06-17] MEDS: Ondansetron 2 mg/mL 2 mL Inj IVPUSH PRN ×2 (10:46→20:03)
--- NOTE | 2016-06-17 11:26 | PROG NOTE ---
[address] [address] PROGRESS NOTE PATIENT: DIANA CROWELL : 1965 MR#: [id number] ADMIT: 06/10/2016 JOB ID: [id number] DATE: 06/17/2016 SUBJECTIVE: Postop day seven TUR bladder tumor with extensive postoperative blood loss and right internal iliac embolization. The patient is off ventilator, breathing well. He is comfortable apart from his Weathers catheter. Irrigations were discontinued this morning and the urine is remaining clear. I am going to stop his irrigations and leave them p.r.n. but I am reluctant to remove his catheter at this time. He has been seen by medical oncology with a plan to begin chemotherapy next week. I am hopeful once chemotherapy is started, we will be able to remove his catheter without resumption of hematuria. LABORATORY DATA: Coagulation studies normal. Hematology: Hematocrit stable at 24.9. Renal function stable with a creatinine of 0.54. The patient will remain an inpatient until hematuria has resolved enough to remove his catheter. Following neoadjuvant chemotherapy, he will require a cystectomy. The type of urinary diversion remains to be determined.
--- NOTE | 2016-06-17 12:15 | NUR ---
Palliative Care Palliative Care received verbal order from Dr Atkinson 06/17/16 to assist with pain/symptom management and family support. Patient is a 51 year old man who was admitted 06/10/16 for care of bladder mass, bleeding and pain. Irrigating bladder continuously. Urology following. Oncology consulted. Patient lives home with . Sherly Knutson () [phone], Palliative Care to follow. Mallika Garcia
[2016-06-17] MEDS ORDERED: Belladonna Alk-Opium 60 mg Rectal Suppository RECTAL PRN ×2 (12:55→20:30)
--- NOTE | 2016-06-17 13:00 | NUR ---
Activity/Pain/Bladder irrigation: Dr Curry stopped [address] thakkar irrigation and instructed this RN to restart irrigation if thakkar drainage appeared bloody/w clots. Irrigation was restarted at a slow rate about 30 minutes after it was stopped. Patient was able to stand up and take several steps in place and side steps. After getting patient in bed he reported 10/10 pain to bladder and stated his bladder felt full. Dilaudid 1mg IVP was administered. Manual irrigation was attempted by primary RN and discharge rn no clots were observed during irrigation. Bladder scan was completed and showed the bladder to be empty. Pt continued to report significant pain and a second dose of Dilaudid 1mg IVP was given. At reassessment pt rates bladder pain 8/10. Thakkar now draining clear. Dr Romero was called and is now with patient.
--- NOTE | 2016-06-17 13:23 | NUR ---
Patient off unit for CT
--- NOTE | 2016-06-17 13:45 | PCM.CONPAL ---
Date of Service Jun 17, 2016 Date of Hospital Admission: Jun 10, 2016 at 00:46 Requesting Provider: Sloan Gamez MD Comment: With deep breath and cough. Reason Palliative Care Consult: Pain, Other Symptoms, Goals of Care Discussion Hospital Unit @time of consult: Progressive Care Palliative Care Recommendation Summary of palliative recommendations: -Symptom management (Pain/other) PAIN-Associated with bladder spasms. Significantly accelerated with PT. Reviewed with Dr. Curry-states this is likely to be an issue until can get tumor to shrink. Expects brisk results once chemo is initiated. Will start a hydromorphone SUBCONTRACT ADMINISTRATOR but will also start antispasmotics- oxybutynin 5 mg tid and B& O supp. PT may need to be postponed until can get control of pain HEMATURIA- on going- again thought will continue until can start chemo. ANOREXIA-suspect will improve a bit with adequate pain control. As per Dr. Roman Curry- chemo will begin wednesday by Dr. Phipps. -DPOA/Advanced Directives/POLST-Paperwork for DPOAHC/AD given. He defines his Jessika as first and son Ken as 2nd. His goal is for aggressive management at this point-FULL CODE and chemo surg as indicated -Family/emotional support-primarily his who also works claims agent right of way and is sole support for income as well as for health care. Reviewed concerns for her support-friends and their son. -Spiritual support-not interested. Additional Medical Diagnoses with primary management by Hospitalist team include : DM2 HTN Problems: End of Life Preferences not addressed today--AD paperwork given. At this point, new dx, young, relatively healthy and has put little thought into the concept of EOL Goals of Care FULL CODE and aggressive treatment at this time Disposition Reviewed consideration for SNF if possible once closer to discharge-vs HH Resuscitation Status Resuscitation Status: CPR: Attempt Resuscitation POLST Updates/Changes Previous POLST?: No POLST Discussed with: Patient . Pain: Severe Symptom management: Pain Pt History History of Present Illness PALLIATIVE CARE CONSULTATION requesting MD- Dr. Atkinson urologist-Dr. Lizzy Curry oncologist Dr. 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 He was seen in ER at [facility] and CT scan noted a large bladder mass. He had this excised with complications of hemorrhage, need for fluid/blood resuscitation and temporary intubation. Bleeding was decreased with iliac artery embolization. He continues to bleed and require irrigation, continues to have 10 /10 pain associated with bladder spasms despite IV hydromorphone. He has never been a smoker and has no exposure to toxins to his knowledge. 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 He is and lives with his of 23 yrs-Jessika. They have 1 son Ken. He is distanced from his family-2 brothers and mother. He is aware that he has an aggressive malignancy and is in agreement with the plan to begin neoadjuvant chemo with plan for follow up radical cystectomy. He has no family hx of CA. Nonsmoker, nondrinker-denies illicit drugs. Does not like the sense of being out of control. 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 Social Support: son Ken-also lives in [place] Living Situation: lives with of 23 yrs Spiritual Support Spiritual Support not involved in episcopalian Responsive Patient Symptoms Pain (maximium): Severe *Requires 72 Hour Followup Tiredness/Fatigue: Mild Nausea: Moderate (assoc with pain but not with narcotic dosing, is anorectic) Anorexia: Moderate Shortness of Breath: Mild Palliative Performance Scale PPS Patient Status: Baseline PPS Ambulation: Full PPS Activity: Normal activity & work PPS Self-Care: Full Self Care PPS Intake: Normal PPS Conscious Level: Full Performance Scale: 100% Allergy Allergies Reviewed: Yes Medications Current Medications: Current Medications Hydromorphone HCl 1-2 Q2H PRN IVPUSH Last administered on 06/17/16 10:46; Admin Dose 1 MG; Start 06/15/16 at 18:38 Insulin Human Lispro Nutritional Dose to be given pr... [facility] SUBQ; Start at 12:00 Acetaminophen/ Premix 100 ml @ 400 mls/hr Q6H PRN IV Last administered on 17:59; Admin Dose 400 MLS/HR; Start 06/16/16 at 15:00; Stop 06/17/16 at 15:01 Oxycodone/ Acetaminophen 2 tab Q4H PRN PO Last administered on 06/17/16t 01:53; Admin Dose 2 TAB; Start 06/16/16 at 17:45 Oxybutynin Chloride 5 mg TID PO; Start 06/17/16 at 14:30 Belladonna Alkaloids/Opium 60 mg BID PRN RECTAL; Start 06/17/16 at 12:55 Scheduled Atorvastatin Calcium (Atorvastatin Calcium) 20 Mg Tablet 20 MG PO DAILY Fenofibrate (Fenofibrate) 160 Mg Tablet 160 MG PO DAILY Gabapentin (Gabapentin) 300 Mg Capsule 300 MG PO DAILY Lisinopril (Lisinopril) 40 Mg Tablet 40 MG PO DAILY Tamsulosin ER (Tamsulosin ER) 0.4 Mg Cap.er.24h 0.4 MG PO DAILY Scheduled PRN Naproxen (Naproxen) 500 Mg Tab 500 MG PO BID PRN PRN For Pain oxyCODONE-Acetaminophen 10-325 mg (oxyCODONE-Acetaminophen 10-325 mg) 1 Each Tablet 1 TABLET PO PRN For Pain Miscellaneous Medications Insulin Detemir (Levemir Flextouch) 100 Unit/1 Ml Insuln.pen 100 UNIT SQ Objective Findings Exam Vital Sign - Last Date Time Temp Pulse Resp B/P Pulse Ox O2 Delivery O2 Flow Rate FiO2 06/17/16 12:26 36.9 91 23 132/67 95 Nasal Cannula 2.00 06/13/16 12:05 45 Intake and Output 06/16/16 06/16/16 06/17/16 Cumulative From/Thru 15:00 23:00 07:00 06/10/16 00:53 - 06/17/16 06:23 Intake Total 613 ml 551 ml 47563 ml Output Total 900 ml 2250 ml 63129 ml Balance -287 ml -1699 ml -62134 ml Intake Oral 420 ml 250 ml 870 ml IV Total 193 ml 301 ml 00900 ml Tube Feeding 384 ml Autotransfusion 2400 ml Packed Cells 1325 ml FFP 400 ml Tube Irrigant 145 ml Output Urine Total 900 ml 2250 ml 01350 ml Gastric Drainage Total 250 ml Estimated Blood Loss 300 ml # Bowel Movements 0 General: Alert/Oriented x3, Moderate distress, Severe distress (with episodes of bladder spasms) HEENT: EOMI, Scleral Anicteric, Mucous Membranes Dry, Other (miotic pupils) Lungs: Clear to Auscultation Abdomen: Other (obest, soft) Neuro: Arousable, Cranial Nerve 3-12 Intact, Other (despite hydromorphone he is able to communicate well and appears appropriate and decisional.) Extremities: Other (sense of diffuse fluid overload--soft doughy none pitting edema-arms, hands, feet, abd wall) Lab/Diagnostics Lab and Imaging results reviewed in detail in EMR. hgb 8.3, CR 0.54 Patient/Family Conference Members Present Family Members Present Jessika and patient Medical Team Members Present? Marcos SMITH [facility] and Leticia Gómez [employer] [facility] Discussion/Goals of Care Discussion FAMILY UNDERSTANDING OF DISEASE: Patient is able to delineate that he has an aggressive bladder cancer which is unusual for his age/nonsmoking status. He is aware of the plan for neoadjuvant chemo and then radical cystectomy-if still appropriate with presumed metastatic ds on scan. When seen he had not had his CT so was unaware of the enlarged LN up to shannan. Also note of thickening around sigmoid which may also relate to this tumor. Pain/spasms-biggest issue right now. DISEASE PROGRESSION/EVIDENCE OF DECLINE: SYMPTOM BURDEN: GOALS: Aggressive treatment with goal of cure if possible HOPES/WORRIES: FAMILY WISHES/VALUES: Do you want to be told truth about his illness, even if unpleasant? yes- He states he appreciated Dr. Roman Curyr's candor. Does family want to know prognosis when it can be predicted, to better guide treatment decisions? yes What is quality of life for the patient: to be able to interact with their loved ones and friends, to travel, not to be bedbound, to be independent in taking care of themselves: yes Would comfort care be more important than being awake and alert? Yes but he does not like the clouding of the IV hydromorphone Time spent Total time 65 minutes; >50% face to face with patient and/or family, providing counselling regarding plans and recommendations, and in care coordination with his/her medical teams. Chart reviewed, consulted with Dr. Curry regarding prognosis and planned med changes. Dr. Phipps is out of town. I also spent an additional [ ] minutes counseling for advanced care planning with the patient/the patients family/the surrogate decision maker. copies to: Pat Phipps MD; Lizzy Curry MD, Deborah A MD Jun 17, 2016 13:45
[2016-06-17] MEDS: HYDROmorphone PCA 0.2 mg/mL 30 mL Inj IV PRN (14:21)
--- NOTE | 2016-06-17 14:35 | NUR ---
Patient off unit to OR for new port placement Addendum: 06/17/16 at 1847 by CLAUDY SALINAS RN patient returned to unit at 1745.
--- NOTE | 2016-06-17 14:42 | NUR ---
Palliative care note [facility] D/A: Family conference held today with Dr. Romero, pt spouse Sherly and pt, as well as this worker. Longer note to follow. P: Palliative care to follow. Leticiamann Chaudharypedro luis [facility] Addendum: 06/18/16 at 1421 by FANNIE GUSTAFSON PC note amendment D/A: Met with pt and spouse at length. She notes that family is under stress as her father just end of Apr 2016. He also lives in [place]. Sherly notes that her father's cause of was unknown and they are waiting for certificate. 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 He joined when he was aged 18 and notes that he completed a will at that time. It seems that he may have the same will. When asked if he would wish to [facility] the [facility], pt is quite adamant in saying no. At this time, he feels that his medical care is better without the services of the [facility]. Pt and spouse are very thankful for their health insurance. Spouse works fulltime for the [employer], where she is employed as a city planning aide. Her work number is [phone], [employer]. Couple has been for 23 years and will celebrate their anniversary on this 06/20/16. Pt wants a piece of pie to celebrate. Pt and spouse are very complimentary to all of the staff and medical care that they have received at [facility]. They feel that too often, medical team and support members do not hear good feedback on care and wish to share their very positive experience during this difficult time for both of them. 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 Reason for this is not explored. Note that pt was in significant pain when PC team visited. He describes his pain as waves and spasms. Dr. Romero discusses his pain needs with him and indicates that she is considering both a narcotic as well as an anti-spasmodic. Pt indicates that his pain increased through his work with PT. Pt notes to Dr. Romero that he is not fond of pain meds as he does not like to feel out of control. They both agree that he may need to try and tolerate this for the current period of time to allow medical team to get on top of his pain needs. Couple has a son, Dileep Farias whose number is [phone]. He is aged 23 and lives outside the home. He has been of great support to pt and has accompanied him on many of his appts. 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 Pt and spouse have previously been involved in a gnosticist (denomination and name of gnosticist not explored) but are not regular members at this time. Son is a member of another gnosticist. Many of Sherly's friends remain attending members of the couple's former gnosticist. Couple is made aware of the services of Spiritual Care . Pt does not have a medical POA but indicates verbally to Dr. Romero and this worker that his first choice is his spouse Sherly and his secondary choice is his son Dileep. Note that Sherly's contact numbers in EMR are [phone] and [phone]. Gave spouse Sherly blank DPOA form. She also indicates that she is going back to work this afternoon and is planning on talking to city treasurer who also provides DPOA services. Do not explore POLST with this family at this time. P: Palliative care to follow. Leticia HENSON, [facility]
--- NOTE | 2016-06-17 14:50 | PCM.HPANE ---
Patient Data Date of Service: Jun 17, 2016 Surgeon Admitting Provider:Denis Hines MD Attending Provider:Denis Hines MD Primary Care Physician:Fausto Salvador MD Other Provider: Reason for Visit Bladder Mass Ht/WT & BMI Height (Feet): 6 Height (Inches): 0.00 Weight (Kilograms): 146.900 Body Mass Index 40.19 Allergies Coded Allergies: No Known Allergies (Verified Allergy, Unknown, 06/10/16) Past Anesthesia History Anesthesia History: Denies:: Anesthesia Reactions Diabetes History Hx Diabetes?: Yes Current Bedside Blood Glucose: 110 Medications Hypertension Medication: Yes Home Meds Incl Beta April: No Reported Medications Tamsulosin ER 0.4 Mg Cap.er.24h0.4 Mg PO DAILY 06/12/16 oxyCODONE-Acetaminophen 10-325 mg 1 Each Tablet1 Tablet PO PRN For Pain Ref 0 06/10/16 Naproxen 500 Mg [id number] Mg PO BID PRN For Pain Ref 0 06/10/16 Lisinopril 40 Mg Ooikhk14 Mg PO DAILY 06/10/16 Insulin Detemir (Levemir Flextouch)100 Unit/1 Ml Insuln.dkd315 Unit SQ 06/10/16 Gabapentin 300 Mg [id number] Mg PO DAILY Ref 0 06/10/16 Fenofibrate 160 Mg [id number] Mg PO DAILY 06/10/16 Atorvastatin Calcium 20 Mg Broqci44 Mg PO DAILY 06/10/16 Discontinued Reported Medications Tamsulosin (Flomax)0.4 Mg Capsule0.4 Mg PO DAILY Ref 0 06/10/16 History History of ENT Problems?: No Hx of Heart Problems?: No Cardiovascular History: Denies:: Hypertension Hx of Respiratory Problem?: Yes Respiratory History: Positive for:: Asthma Hx Neurologic Problems?: Yes Neurological History: Positive for:: Headaches (migraines from high pitched noise) Hx of GI Problems?: No Hx of Problems?: No Male Hx: Denies:: Prostate Problems Hx Musculoskeletal Problems?: No Hx of Psycho/Social Problems?: No Psycho Social History: Denies:: Anxiety Hx Depression Hx Surgeries?: Yes (shoulder surgery 11/28 resection) Hx Any Other Health Problems?: Yes History Blood Transfusions: Positive for:: Accept Blood Products? 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)Alcoholic Drinks Per Day: 0Hx Substance Use: NoHave You Smoked inLast 12 mo: No Stop/Bang Treated for Sleep Apnea?: No S-Snoring: Do You Snore Loudly: Yes T-Tired: feel tired, fatigued: No O-Obsered: Observed not breath: No P-Blood Pressure: treated: No B- Body Mass Index > 35 kg/m2: Yes A- Age over 50: Yes N- Neck Large Circumference: Yes G- Gender Male: Yes JUANPABLO Total Score: 5 JUANPABLO Risk Assessment: High Risk, =/>3 Yes JUANPABLO Category 2: Yes Risk Assessment Category Category 1A: Patient has history of documented sleep apnea, and HAS NOT received any narcotic, sedative or anesthesia administration during this stay. Category 1B: Patient has history of documented sleep apnea, and HAS received any narcotic , sedative or anesthesia administration during this stay Category 2: Patient has SUSPECTED Obstructive Sleep Apnea, and HAS received any narcotic , sedative or anesthesia administration during this stay. Category 3: Patient has SUSPECTED Obstructive Sleep Apnea and HAS NOT received narcotic, sedative or anesthesia administration during this stay. Category 4: Outpatient in Procedural Areas with known sleep apnea or who screen positive for High Risk via the STOP/BANG questionnaire. Exam Exam Vital Signs Vital Signs Date Time Temp Pulse Resp B/P Pulse Ox O2 Delivery O2 Flow Rate FiO2 06/17/16 12:26 36.9 91 23 132/67 95 Nasal Cannula 2.00 06/17/16 10:04 93 06/17/16 08:27 37.2 87 16 124/76 96 Nasal Cannula 2.00 General Appearance: Alert, Oriented X3, Cooperative, No Acute Distress Lungs: Normal Air Movement Heart: Exam Unremarkable Meds/Labs/Diagnostics Admission Meds Current Medications Potassium Chloride/Premix (Potassium Chloride 40 mEq/ 100 mL (CENTRAL)/ IV Premix) 100 ml @ 25 mls/hr ONCE ONCE IV Last administered on 06/16/16t 23:00; Start 06/16/16 at 22:05; Stop 06/17/16 at 02:04; Status DC Bedside Blood Glucose: 110 Labs Test 06/10/16 01:30 06/10/16 07:22 06/10/16 21:30 06/11/16 01:52 Total Creatine Kinase 172U/L (21-232) Creatine Kinase MB 4.5ng/mL (0.0-10.4) Creatine Kinase MB % % (0.0-5.0) Troponin T 0.010ug/L (0.0-0.011) Reticulocyte Count,Calculated 1.5% (0.6-2.6) Iron Level 58ug/dL (35-150) Total Iron Binding Capacity 265ug/dL (250-450) Percent Iron Saturation 22%sat (15-50) Unsaturated Iron Binding 207.4ug/dL Ferritin 257ng/mL (30-400) Vitamin B12 Level 820pg/mL (211-946) Folate 17.8ng/mL (>3.0) Hold Matthew Top Tube Received (Received) Band Neutrophils % 9% (1-5) Metamyelocytes % 2% (0-0) Test 06/12/16 04:45 06/12/16 08:00 06/12/16 08:06 06/12/16 08:27 Phosphorus Level 2.5mg/dL (2.5-4.9) Urine Random Microalbumin 24.8ug/mL (Not Estab.) Urine Color Red (YELLOW) Urine Appearance Slightly cloudy Urine pH 6.5 (5.0-8.0) Urine Specific [place] 1.005 (1.003-1.035) Urine Protein Tracemg/dL (NEG,TRACE) Urine Glucose (UA) Negativemg/dL (NEGATIVE) Urine Ketones Negativemg/dL (NEGATIVE) Urine Occult Blood Large (NEGATIVE) Urine Nitrite Negative (NEGATIVE) Urine Bilirubin Negative (NEGATIVE) Urine Urobilinogen Normalmg/dL (NORMAL) Urine Leukocyte Esterase Small (NEGATIVE) Urine RBC Packed/hpf (0-2) Urine WBC 0-5/hpf (0-5) Urine Epithelial Cells Occasional/hpf (NONE-MOD) Urine Crystals None seen (NONE SEEN) Urine Bacteria Few/hpf (NONE-FEW) Urine Hyaline Casts None/lpf (NONE) Urine Granular Casts None seen (NONE SEEN) Urine Waxy Casts None seen (NONE SEEN) Urine Red Blood Cell Casts None seen (NONE SEEN) Urine White Blood Cell Casts None seen (NONE SEEN) Urine Mucus None seen (None Seen) Urine Trichomonas None seen (NONE SEEN) Urine Yeast None (NONE SEEN) Urinalysis Comment None Urine Culture Reflexed Not indicated Prothrombin Time 10.8sec (8.1-12.5) Prothromb Time International Ratio 1.01ratio Activated Partial Thromboplast Time 24.7sec (22.8-33.0) Fibrinogen 237mg/dL (157-380) Test 06/13/16 03:45 06/14/16 05:30 06/14/16 10:15 06/16/16 15:00 Lactic Acid Level 1.0mmol/L (0.4-2.0) Magnesium Level 1.9mg/dL (1.6-2.6) Total Bilirubin 0.7mg/dL (0.0-1.2) Aspartate Amino Transf (AST/SGOT) 148U/L (0-50) Alanine Aminotransferase (ALT/SGPT) 247U/L (0-44) Alkaline Phosphatase 127U/L (25-150) Total Protein 4.4g/dL (6.4-8.4) Albumin 2.3g/dL (3.4-5.0) Procalcitonin 0.26ng/mL (0.00-0.08) Hold Purple Top Tube Received (Received) Hold Blue Top Tube Received (Received) Hold Preston Top Tube Received (Received) Test 06/17/16 03:00 White Blood Count 6.9th/mm3 (3.8-10.1) Red Blood Count 2.81mil/mm3 (4.40-5.80) Hemoglobin 8.3g/dL (13.8-17.2) Hematocrit 24.9% (41.0-50.0) Mean Corpuscular Volume 88.6fL (81-100) Mean Corpuscular Hemoglobin 29.5pg (27.0-35.0) Mean Corpuscular Hemoglobin Concent 33.3% (32.0-37.0) Red Cell Distribution Width 13.7% (12.3-15.4) Platelet Count 178bil/L (150-400) Neutrophils (%) (Auto) 59.8% (40-74) Lymphocytes (%) (Auto) 22.0% (14-46) Monocytes (%) (Auto) 10.1% (4-12) Eosinophils (%) (Auto) 5.2% (0-5) Basophils (%) (Auto) 0.7% (0-3) Sodium Level 136mEq/L (134-144) Potassium Level 4.2mEq/L (3.5-5.2) Chloride Level 102mEq/L (97-108) Carbon Dioxide Level 22mmol/L (18-29) Blood Urea Nitrogen 10mg/dL (6-24) Creatinine 0.54mg/dL (0.76-1.27) Estimat Glomerular Filtration Rate 171mL/min (>59) Glucose Level 111mg/dL (60-99) Calcium Level 8.0mg/dL (8.5-10.1) Plan Impression Patient chart reviewed, patient interviewed and anesthestic plan with risks, benefits, and alternatives discussed, and informed consent obtained. ASA Physical Status: ASA3 Severe Disease Anesthetic Plan: GA Bene/Risks/Altern/Consents: Yes HP Complete Prior to Induction: Yes Pancho Castillo MD Jun 17, 2016 14:28
[2016-06-17] MEDS ORDERED: Lactated Ringer's 1,000 ML IV ONE ×2 (14:51→16:04)
--- NOTE | 2016-06-17 14:53 | NUR ---
NUTRITION FOLLOW-UP: ASSESS: 51 YO M admitted to CCU for bladder mass and post-op respiratory distress requiring intubation. Pt was able to be extubated 06/13. ST advanced diet to full liquid 06/16. Pt reported that he does not want to eat solid foods yet because of some nausea and he does not want to have a BM. PO is only sips. 0 BM has been recorded x7 days. Oncology is following and plan is to start chemo next week. Palliative is involved for pain control and family support. PMHX: HLD, DM. LABS: Reviewed. Back Tacker .54, Glu 111, Ca 8.0 MEDS: Reviewed. GI: No BM noted. SKIN: Guero 10. WT: 146.9kg, BMI 43.9 kg/m2, IBW 80.9 kg. Admit weight: 134.6 kg. DIET: Full Liquid, PO sips ESTIMATED NEEDS: BMI (based off admit wt) Calories: 9167-9505 kcal/day (20-22 kcal/kg BW) Protein: 104-130 g/day (1.0-1.5g/kg IBW) NUTRITION DIAGNOSIS: 1) Inadequate oral intake related to decreased ability to consume sufficient energy as evidenced by current NPO/vent status ----IMPROVING w/ diet advance NUTRITION INTERVENTION: 1) Continue diet per ST. 2) Unable to speak w/pt about PO d/t pt being in OR. Will add Glucerna on all trays and f/u 06/18 regarding intake MONITOR/EVALUATE: PO intake, supps, wt, GI/BM, diet advance, ST, labs, POC, nutrition status. Follow per high nutrition risk guidelines
--- NOTE | 2016-06-17 15:18 | DRSVH ---
PROCEDURE: CT CHEST, ABDOMEN AND PELVIS [facility] CONTRAST ([id number]) INDICATIONS: staging. Bladder CA TECHNIQUE: After the administration of oral and intravenous contrast, 5 mm thick sections acquired from the lung apices to the symphysis. 5 mm coronal and sagittal reformats were performed, with additional 7 mm c oronal MIP reformats through the lungs. For radiation dose reduction, the following was used: autom ated exposure control, adjustment of mA and/or kV according to patient size. COMPARISON: Outside Film, CT, CT ABD PELVIS WO CON, 06/08/2016, 15:27. FINDINGS: Image quality: Excellent. CHEST: Lungs and pleura: Mild bilateral pleural effusions are present. There are bilateral patchy and conflu ent air space opacities most severe in the right hemithorax as well as left base. Mediastinum: Heart size is normal. No pericardial effusion there is a 13 mm lymph node identified a t the abdelrahman. Several subcentimeter. Esophageal lymph nodes are identified the largest measuring 4 mm . Thoracic aorta and central pulmonary arteries are normal in size. Esophagus is normal in caliber. No hiatal hernia. Chest wall: No axillary or supraclavicular adenopathy by size criteria. Thyroid gland is unremarkab le. ABDOMEN: Solid organs: Liver and spleen are normal in size and enhancement. Gallbladder is unremarkable. Bi liary system is non dilated. Pancreas enhances normally. No adrenal nodules. Kidneys demonstrate n ormal size and enhancement. There is minimal right hydronephrosis, improved compared to prior exam. There is persistent mid and distal hydroureter, relatively unchanged. Peritoneum and bowel: Bowel loops are nonobstructed. There is prominent circumferential thickening o f the distal sigmoid colon extending to the rectum, new compared to prior exam. However, it is incomp letely distended. Nodes and vessels: There are scattered perigastric, periportal and peripancreatic lymph nodes identif ied with the largest a peripancreatic lymph node measuring 15 mm in short axis, seen on series 2 imag e 58. In addition, there are multiple sub-centimeters lymph nodes in the periaortic and aortocaval re gions, the largest measuring approximately 4 mm. Miscellaneous: No ventral hernias. PELVIS: Genitourinary: The bladder is distended. It is heterogeneous with multiple areas of hyper density as well as air. A Weathers catheter is noted. Areas of hyperdensity likely associated with known transition al cell carcinoma or main prominent but appear less when compared to prior exam. Miscellaneous: No inguinal hernias or adenopathy. Bones: No suspicious bony lesions. No vertebral body compression fractures. IMPRESSION: 1. Mild bilateral pleural effusions with bilateral areas of patchy and consolidated airspace opacity, with the latter suggestive of airspace disease such as pneumonia. They were not present on previous examination. Recommend interval followup to document resolution and exclude presence of underlying ma ss lesions. 2. Multiple abdominal lymph nodes are present the largest measuring 15 mm as above. In addition, an e nlarged subcarinal lymph node is present. Findings are concerning for metastatic disease. Continued i nterval followup of these regions is recommended. 3. Heterogeneous appearance of the bladder, including air with decreased appearance of bladder tumor mass, consistent with history of recent partial resection and embolization. In addition, there has b een interval decreased appearance of right hydronephrosis. Relatively unchanged right hydroureter is noted. Dictated by: Romy Parker M.D. on 06/17/2016 at 15:08 Approved by: Romy Parker M.D. on 06/17/2016 at 15:16
--- NOTE | 2016-06-17 15:25 | CONS ---
[address] [address] CONSULTATION REPORT PATIENT: DIANA CROWELL : 1965 MR#: [id number] ADMIT: 06/10/2016 JOB ID: [id number] DATE OF SERVICE: 06/17/2016 CHIEF COMPLAINT: A 51-year-old gentleman with high-grade bladder cancer seen in consultation at the request of Lizzy Curry M.D. HISTORY OF PRESENT ILLNESS: The patient is a 51-year-old gentleman who presented to [facility] emergency department with gross hematuria and pain with urination treated as a UTI multiple times. On June 10, he was directly transferred from [facility]. Then, a CT scan there showed a 10 x 5.8 cm heterogenous mass within the bladder with the right-sided hydronephrosis. Dr. Lizzy Curry took him to the operating room for an incomplete transurethral resection of bladder tumor on June 10. He found a huge tumor filling most of the bladder which was very hemorrhagic. After the operation, he was extubated but his hematuria worsened he became hemodynamically unstable and actually had a cardiac arrest. He was reintubated and was needed to be on vasopressors and was resuscitated with around 15 units of packed red blood cells as well as fresh frozen plasma and cryoprecipitate. The pathology showed high-grade papillary urothelial carcinoma with a prominent endophytic growth and necrosis. He was seen by Dr. Phipps from Oncology in consultation and he was thought to be a candidate for neoadjuvant cisplatin based chemotherapy followed by a radical cystectomy. We were asked to see him in consultation for tunneled central venous access for facilitating his chemotherapy. OTHER MEDICAL PROBLEMS: 1. Type 2 diabetes mellitus. 2. Hyperlipidemia. 3. Obesity. PRIOR OPERATIONS: 1. Left shoulder arthroscopy. 2. Transurethral resection of bladder tumor on June 10, 2016. MEDICATIONS AT HOME: 1. Atorvastatin. 2. Fenofibrate. 3. Gabapentin. 4. Insulin. 5. Lisinopril. 6. Tamsulosin. ALLERGIES: No known drug allergies. SOCIAL HISTORY: He does not smoke. He is an [employer] . 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 He is . They live in [place]. FAMILY HISTORY: No family history of cancer or heart disease. INVESTIGATIONS: Labs from June 17, 2016: WBC 6.9, hemoglobin 8.3, platelet count 178. Creatinine 0.54. Glucose 111, calcium 8.0. INR 1.0. PTT 24.7, fibrinogen 237. CT chest, abdomen and pelvis performed just now showed both jugular and subclavian veins patent with no evidence of thrombus with a right internal jugular catheter in place with some atelectasis or infiltrate with some small pleural effusions bilaterally. PHYSICAL EXAMINATION: A 51-year-old gentleman in no acute distress. BMI 43.9, BP 132/67, temperature 36.9, pulse 91, saturating 95% on 2% nasal cannula. Eyes: Normal pupils, conjunctivae. Ears, nose, and throat: Normal external appearance. Neck: Right internal jugular catheter in place with the skin site showing no signs of infection. This has been in place since June 10, 2016. Respiratory: Bilateral air entry. Cardiovascular: Regular rate and rhythm. Gastrointestinal: Abdomen soft. Skin: Normal. Musculoskeletal: Normal strength in extremities. Neuro: No gross deficits. Psych: Alert, appropriate. ASSESSMENT AND PLAN: I discussed the technical aspects of tunneled central venous catheter placement with subcutaneous port. It is not ideal to have to place a permanent catheter in the current situation he is in but I believe leaving this existing central line in for another week waiting for chemotherapy would not be appropriate. So I think it is reasonable to go ahead and place a tunneled central venous catheter with a port and remove the internal jugular catheter at the same time and keep him with the prophylaxis for the next week while he heals before starting his chemotherapy thereby decreasing his chance of any infection. I discussed this case with Dr. Damaris Mohamud and she or myself will be able to take care of him later today. The patient understands the risks and he wishes to proceed and informed consent was signed.
[2016-06-17] MEDS ORDERED: Bupivacaine-MPF 0.25%/EPI 30 mL Inj INJ ONE (15:53)
[2016-06-17] MEDS ORDERED: Lactated Ringer's 500 ML IV PRN (16:04)
[2016-06-17] MEDS ORDERED: Lactated Ringer's 1,000 ML IV SCH (16:04)
[2016-06-17] MEDS ORDERED: fentaNYL-PF 50 mCg/mL 2 mL Inj IVPUSH PRN (16:05)
[2016-06-17] MEDS ORDERED: Phenylephrine 10,000 mCg/mL Inj IVPUSH PRN (16:05)
[2016-06-17] MEDS ORDERED: HYDROmorphone 1 mg/mL Inj IVPUSH PRN (16:05)
[2016-06-17] MEDS ORDERED: MetoCLOpramide 5 mg/mL 2 mL Inj IVPUSH PRN (16:05)
[2016-06-17] MEDS ORDERED: Albuterol-Ipratropium 3 mL Inhalation Solution NEB PRN (16:05)
[2016-06-17] MEDS ORDERED: Atropine 0.4 mg/mL Inj IVPUSH PRN (16:05)
[2016-06-17] MEDS ORDERED: EPHEDrine Sulfate 50 mg/mL Inj IVPUSH PRN (16:05)
[2016-06-17] MEDS ORDERED: Dexamethasone 4 mg/mL Inj IVPUSH PRN (16:05)
[2016-06-17] MEDS ORDERED: Labetalol 5 mg/mL 4 mL Inj IV PRN (16:05)
[2016-06-17] MEDS ORDERED: Ondansetron 2 mg/mL 2 mL Inj IVPUSH PRN (16:05)
--- NOTE | 2016-06-17 16:46 | PCM.SURGOP ---
Surgical Operative Report Date of Service: Jun 17, 2016 Pre Operative Diagnosis High-grade urothelial bladder carcinoma Post Operative Diagnosis High-grade urothelial bladder carcinoma Procedure: Right internal jugular port placement with fluoroscopic guidance with interpretation. Surgeon and Gunstock Repairer: Surgeon: Damaris Mohamud MD Assistants: Grayson Wong MD Indication for Procedure This is a 59-year-old man who was recently hospitalized with massive hematuria requiring blood transfusions who was found to have a high-grade urothelial carcinoma. In order to proceed with chemotherapy, port placement was requested by his oncologist. Findings: The port tip was at the cavoatrial junction at the end of the procedure. The port aspirated and flushed easily. It was flushed with 10 mL of heparin solution, 100U/mL, at the end of the case. Procedure Details The patient was brought to the operating room and placed in supine position. General anesthesia with a LMA was induced, however, the patient had desaturations and an endotracheal tube was placed. Antibiotics had been infused previously in the ICU. A warming blanket and SCDs were placed. The operative field was prepped and draped in sterile fashion, including the patient 's existing right internal jugular central line. A pause was performed to confirm the correct patient, procedure, site, and side. The right internal jugular vein was identified with the ultrasound. The distal port site of the existing right internal jugular central line was accessed, aspirated, and flushed. This was performed easily. The end of it was then cut off and the wire was threaded through it, however, it did not thread easily. Its location and course was identified on ultrasound, and decision was made to proceed with a separate stick 3 cm inferior to the existing catheter site. Under ultrasound guidance, the right internal jugular vein was then accessed with a single stick with care taken to avoid the existing catheter, and a wire was threaded easily without resistance. Fluoroscopy confirmed the wires presence on the right side of the heart. The existing catheter was then removed under fluoroscopic guidance. The position of the tip of the wire at the cavoatrial junction was measured. A pocket was made in the tissue overlying the right pectoralis. The port was inserted and sewn into place with two interrupted Prolene stitches. It was then tunneled to the site of the wire using a small counter incision. The port catheter was then cut to the appropriate size as previously measured by the wires position on fluoroscopy. Dilation was then performed under fluoroscopic guidance. The sheath was left in place and the catheter was inserted. The sheath was removed and the two sides were found to be completely intact. The tip of the port was found to be positioned at the cavoatrial junction on fluoroscopy. The catheter was not kinked on fluoroscopy. The port aspirated and flushed easily at the end of the case. It was infused with 10 mL of 100 units/mL heparin solution. The subcutaneous tissue overlying the port was closed with a 3-0 Vicryl stitch. The skin at the port site, the wire access site, and counter incision was closed with a 4-0 subcuticular Monocryl stitch. Marcaine 0.5% with epinephrine was injected in the skin overlying the port as well as the stick site. A sterile dressing was placed. The patient tolerated the procedure well, and was awakened from general anesthesia and taken to the postoperative care unit in good condition. Complications There were no periprocedural complications identified. Surgical Specimen Removed: No Specimen sent to Pathology: No Anesthetic Plan: GA Grafts, Implants: Implants-See Implant Record Output, Estimated Blood Loss: 3 (ml) Blood Administration during murillo: No Damaris Mohamud MD Jun 17, 2016 16:46
--- NOTE | 2016-06-17 16:54 | PCM.ANEP1 ---
Post Anesthesia Phase 1 PACU Phase 1 Assessment Date of Service: Jun 17, 2016 Vital Signs Vital Signs Date Time Temp Pulse Resp B/P Pulse Ox O2 Delivery O2 Flow Rate FiO2 06/17/16 12:26 36.9 91 23 132/67 95 Nasal Cannula 2.00 06/17/16 10:04 93 Anesthetic Administered: GA Level of Alertness: Drowsy, not talking FRITZ's with Equal Strength: Yes Pain: No Nausea or Vomiting: No Oxygen Delivery: Simple Mask Lungs: Normal Air Movement Pancho Castillo MD Jun 17, 2016 16:54
--- NOTE | 2016-06-17 16:59 | PCM.ANEP2 ---
Post Anesthesia Evaluation ASA/CMS Post Anesthesia Date of Service: Jun 17, 2016 VS in Patient's Normal Range?: Yes Resp Stable; Airway Patent?: Yes CV Function & Hydration Stable: Yes Mental Status Recovered?: Yes Pain control Satisfactory?: Yes N/V Control Satisfactory?: Yes Pancho Castillo MD Jun 17, 2016 16:59
--- NOTE | 2016-06-17 17:37 | PROG NOTE ---
[address] [address] PROGRESS NOTE PATIENT: DIANA CROWELL : 1965 MR#: [id number] ADMIT: 06/10/2016 JOB ID: [id number] DATE: 06/17/2016 This is a 51-year-old man with a new diagnosis of high-grade papillary urothelial carcinoma. He was seen by my partner, Dr. Angela Mendes, earlier today, and consented for port placement. I have examined the patient and discussed the risks and benefits of the port placement with him as well. The plan is to proceed with port placement today by myself. The patient and Dr. Mendes are in agreement.
--- NOTE | 2016-06-17 17:39 | DRSVH ---
PROCEDURE: X-RAY CHEST ONE VIEW, PORTABLE ([id number]) INDICATIONS: port placement TECHNIQUE: One view of the chest was acquired. COMPARISON: [facility], CT, CT CHEST ABD PELVIS W CON, 06/17/2016, 13:25. [facility], CR, XR CHEST 1VW (PORTABLE), 06/14/2016, 5:22. FINDINGS: Surgical changes and devices: There is a Port-A-Cath on the right with the tip in the area of SVC. Lungs and pleura: Patchy interstitial and airspace opacities. No pleural effusions or pneumothorax. Mediastinum: Mediastinal contours appear normal. Heart size is normal. Bones and chest wall: No suspicious bony lesions. Overlying soft tissues appear unremarkable. IMPRESSION: Right Port-A-Cath tip in the area of SVC. Dictated by: Elyse Soliz M.D. on 06/17/2016 at 17:35 Approved by: Elyse Soliz M.D. on 06/17/2016 at 17:37
--- NOTE | 2016-06-17 19:16 | PCM.PNMED ---
Subjective Date of Service Jun 17, 2016 Subjective Patient resting in bed comfortably when I visit with him. Somewhat sedated. He is back from surgery. 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 No chest pain, nausea vomiting, diarrhea or constipation currently. Exam Vital Signs Vital Sign - Last Date Time Temp Pulse Resp B/P Pulse Ox O2 Delivery O2 Flow Rate FiO2 06/17/16 18:11 16 96 06/17/16 17:47 36.5 85 150/77 Nasal Cannula 4.00 06/13/16 12:05 45 Intake and Output 06/16/16 06/16/16 06/17/16 Cumulative From/Thru 15:00 23:00 07:00 06/10/16 00:53 - 06/17/16 06:23 Intake Total 613 ml 551 ml 89867 ml Output Total 900 ml 2250 ml 32591 ml Balance -287 ml -1699 ml -93901 ml Intake Oral 420 ml 250 ml 870 ml IV Total 193 ml 301 ml 29804 ml Tube Feeding 384 ml Autotransfusion 2400 ml Packed Cells 1325 ml FFP 400 ml Tube Irrigant 145 ml Output Urine Total 900 ml 2250 ml 09893 ml Gastric Drainage Total 250 ml Estimated Blood Loss 300 ml # Bowel Movements 0 Exam General: Sedated but awake, NAD Head: Normocephalic, atraumatic Eyes: MARLEN, EOMI, no scleral Icterus Chest: clear to auscultation B/L, no wheezing rales or rhonchi Heart: Regular rate and rhythm. Normal S1, S2, no murmurs noted Abdomen: soft obese, non-tender. Bowel sounds are normoactive. No guarding or rebound. Extremities: no cyanosis, clubbing or edema. IVs and Medications Medications Reviewed: Medications were reviewed in detail Lab and Diagnostics Result Diagram: 06/17/16 0300 06/17/16 0300 Microbiology MRSA negative X-Rays, CTs and MRIs PROCEDURE: X-RAY CHEST ONE VIEW, PORTABLE ([id number]) IMPRESSION: 1. Markedly rotated patient. Central venous catheter is projected over the expected region of the SVC. However, repeat study without rotation is recommended. Dictated by: Lois Watt M.D. on 06/10/2016 at 21:07 PROCEDURE: X-RAY CHEST ONE VIEW, PORTABLE ([id number]) IMPRESSION: Bibasilar atelectasis versus aspiration or pneumonia. Correlate clinically. Dictated by: Victorino Long RRA Interpreted: Lizzy Mays MD on 06/12/2016 at 9:41 . Additional Diagnostics PROCEDURE: EMBOLIZATION OF BLEED IMPRESSION: 1. Status post coil embolization of the right internal iliac artery. Please note , despite the lack of active extravasation visualized on the study, the decision was made to embolize the right internal iliac artery as the patients clinical status suggested continued, occult arterial hemorrhage. Dictated by: Lois Watt M.D. on 06/11/2016 at 13:20 . Assessment & Plan # Acute respiratory failure, -Initially intubated for airway protection. -Patient extubated Wednesday, doing well. # Fever, leukocytosis. Resolved. Will continue Zosyn to Wednesday, then dc. # Hemorrhagic shock, resolved. Massive transfusion with RBCs, FFP and cryoprecipitate. Secondary to acute blood loss anemia following bladder tumor resection. Required triple pressors. Improved, patient off pressors. # Severe Acute blood loss anemia, acute. Secondary to hematuria in the setting of bladder tumor resection. Goal Hgb 8. - Okay to reduce frequency of hemoglobin monitoring - 4 units to remain in house at all times HCT stable at this time. Goal is above 21. # Bladder carcinoma, new diagnosis. -Current plan is to achieve hemostasis, then patient to receive neoadjuvant chemotherapy followed by cystectomy later date. -Chemotherapy port placed today by surgery. -Oncology has been consulted - Perioperative antibiotics have been continued - Urology, Dr. Curry is following. Urology asks for dc when able (based on resolution of hematuria) and outpt follow up regarding tumor (high grade). Tumor board will discuss in the next week. #Type II diabetes mellitus with hyperglycemia. - subcutaneous insulin # Obesity, POA. GI prophylaxis: Famotidine twice a day CODE STATUS: Full code DVT prophylaxis: SCDs, no heparin products due to current bleeding Disposition: Home, pending hospital course. GI Prophylaxis: H2 leanna VTE Mechanical Devices: Intermittant Pneumatic CD Resuscitation Status: CPR: Attempt Resuscitation Dudley Atkinson DO Jun 17, 2016 19:16
[2016-06-18] VITALS (12 sets, daily range): BP systolic 113–131; BP diastolic 55–78; PULSE 84–97; RESP 12–20; O2SAT 94–98
--- NOTE | 2016-06-18 01:24 | NUR ---
Pain Pt has DRYWALL TAPER dilaudid in place. He is encouraged to use the button prior to moving. I explained to him that to NOT move is NOT good and it is better to have adequate pain relief in order to move himself around in the bed. The pt verbalized understanding Demonstrating good movement and using his button DRYWALL TAPER adequately
[2016-06-18] MEDS: Piperacillin-Tazo 3.375 Gm Inj 3.375 GM in Dextrose 5% Minibag Plus 50 ML IV SCH ×3 (02:06→17:51)
[2016-06-18 03:04] LABS: Mean Corpuscular Hemoglobin 28.8 pg (27.0-35.0); Mean Corpuscular Volume 86.7 fL (81-100)
[2016-06-18] MEDS: HYDROmorphone PCA 0.2 mg/mL 30 mL Inj IV PRN ×2 (05:53→21:26)
[2016-06-18] MEDS: Insulin LISPRO 300 Unit/3 mL Inj SUBQ SCH ×4 (08:00→21:30)
--- NOTE | 2016-06-18 08:06 | PCM.PNSURG ---
Subjective Visit Information: Reason for Visit Bladder Mass Surgery/Surgery Date Post-Op Day # Date of Admission: Jun 10, 2016 at 00:46 Hospital Day # Subjective: s/p port placement yesterday. Sleeping comfortably. CXR demonstrates that port is in good position. Objective Vital Sign- Last 8 Hours Date Time Temp Pulse Resp B/P Pulse Ox O2 Delivery O2 Flow Rate FiO2 06/18/16 03:22 20 06/18/16 02:59 37.0 85 15 131/72 97 Nasal Cannula 1.00 06/18/16 00:27 92 Intake and Output- Last 8 Hour 06/18/16 Cumulative From/Thru 07:00 06/10/16 00:53 - 06/18/16 04:31 Intake Total 680 ml 92879 ml Output Total 400 ml 43876 ml Balance 280 ml -54600 ml Intake Oral 250 ml 2620 ml IV Total 430 ml 61717 ml Tube Feeding 384 ml Autotransfusion 2400 ml Packed Cells 1325 ml FFP 400 ml Tube Irrigant 145 ml Output Urine Total 400 ml 98973 ml Gastric Drainage Total 250 ml Estimated Blood Loss 303 ml # Bowel Movements 0 General: Other (sleeping comfortably) Chest: Port in normal position R chest, no sign of bleeding or other surgical complication Result Diagram: 06/18/16 0300 06/18/16 0300 Assessment & Plan Impression POD1 port placement Problems: Plan The port may be used when necessary, although allowing it to heal for 3-5 days now that he has an additional PIV is preferable. Resuscitation Status: CPR: Attempt Resuscitation Damaris Mohamud MD Jun 18, 2016 08:06
--- NOTE | 2016-06-18 10:19 | NUR ---
Pt has been tolerating thin liquids well, with little interest in solid foods. Recommend advancement to regular textures as tolerated. COMMERCIAL SHRIMPING CAPTAIN will d/c. Please reorder if needed.
--- NOTE | 2016-06-18 11:25 | NUR ---
Social Work: Continued Discharge Planning D: Pt discussed in am rounds. Pt is not medically stable for discharge however may be transferred to [facility] at some point in his stay. Pt is being followed by oncology who plans to start chemo on Wednesday. Pt is also being follow by urology. Per urology MD progress notes, "patient will remain an inpatient until hematuria has resolved enough to remove his catheter" which will be hopefully be possible after chemo. Palliative care has been following for pain management. Pt has been unable to ambulated or maintain upright seated position due to pain. PT recommendation at this time is for SNF via BLS. Pt's MD and team believes pt will likely be able to discharge home and ambulate safely after pain in better controlled. SERVICES MANAGER met with pt at [facility] to discuss discharge planning. Pt in good spirits despite new diagnosis. Pt states that he is still struggling with pain but his goal is to return home. He states that if he has to go to SNF he would like to be close to his home in [place]. SERVICES MANAGER reviewed the facilities in the surrounding areas. His preference would be for [facility] or [facility]. At this time he would like to wait until after chemo is started to send referrals. SERVICES MANAGER agreed. A: Pt who is I at baseline and lives with his . P: Evolving; pt to start chemo on Wednesday. SERVICES MANAGER to follow pt's clinical course and progress with ambulation and pain management. R/o SNF ANGEL Yarbrough
--- NOTE | 2016-06-18 13:46 | PROG NOTE ---
[address] [address] PROGRESS NOTE PATIENT: DIANA CROWELL : 1965 MR#: [id number] ADMIT: 06/10/2016 JOB ID: [id number] DATE: 06/18/2016 SUBJECTIVE: Postop day eight TUR bladder tumor. Hemoglobin stable at 9.1. Renal function normal. Creatinine 0.54. BUN 9. Urine is brownish in color indicating oxidized blood and no active bleeding at this time. He is ambulating with some hematuria post ambulation. Plan is to start chemotherapy for his bladder cancer next week. As soon as he has no obvious hematuria, will stopped the bladder irrigations that he can be discharged home with a Weathers catheter in place. Once he responds to chemotherapy with involution and off of the tumor, the Weathers catheter can be removed. We will discuss him at tumor conference next Wednesday. Plan is still for surgery following neoadjuvant chemotherapy.
--- NOTE | 2016-06-18 14:17 | NUR ---
NUTRITION FOLLOW-UP: ASSESS: 51 YO M admitted to CCU for bladder mass and post-op respiratory distress requiring intubation. Pt was able to be extubated 06/13. Pt had a port placed 06/17 in preparation for chemotherapy which will start next week. ST advanced diet to full liquid 06/16 and has cleared him for general diet texture once pt is willing to eat solid foods. Pt does not want to eat solid food because he does not want to have to sit up and have a BM due to pain. Palliative care is following for pain control which seems to be helping. Pts PO intake has been improving today to 25-50% of meals. He reported that his appetite is slowly improving. Pt likes the Glucerna supplement shakes that have been added on all trays. Pt was in good spirits and joked about having a dream about doughnuts last night. PMHX: HLD, DM. LABS: Reviewed. Ehr Trainer .54, Glu 149, Ca 8.0 MEDS: Reviewed. GI: No BM noted. SKIN: Guero 17 WT: 146.9kg, BMI 43.9 kg/m2, IBW 80.9 kg. Admit weight: 134.6 kg. DIET: Full Liquid, PO 25-50% ESTIMATED NEEDS: BMI (based off admit wt) Calories: 4132-9525 kcal/day (20-22 kcal/kg BW) Protein: 104-130 g/day (1.0-1.5g/kg IBW) NUTRITION DIAGNOSIS: 1) Inadequate oral intake related to decreased ability to consume sufficient energy as evidenced by current NPO/vent status ----IMPROVING w/ diet advance NUTRITION INTERVENTION: 1) ST has cleared pt for general textured diet. Recommend advanced diet past FL once pt is willing to eat solid foods 2) Will continue to send Glucerna on all trays as pt reported that he likes the supplements 3) Encouraged pt to try to eat ~50% of all meals to help him maintain his strength. Pt expressed understanding and reported that he would try. MONITOR/EVALUATE: PO intake, diet advance, wt, GI/BM, diet advance, ST, labs, POC, nutrition status. Follow per moderate nutrition risk guidelines
--- NOTE | 2016-06-18 14:34 | PCM.PALLBR ---
Palliative Care Recommendation Summary of palliative recommendations: -Symptom management (Pain/other)- PAIN-Associated with bladder spasms. Significantly accelerated with activity associated with physical therapy. Dr. Curry, his urologist, expects brisk results once chemo is initiated and further expects that discomfort associated with the bladder tumor will improve rapidly once therapy initiated. For now, continue hydromorphone SUPERVISOR BUFFING AND PASTING initiated by Dr. Romero and also continue antispasmodics- oxybutynin 5 mg tid and B&O supp. prn Discussed with his nurse the need to use bolus pain medicine via SUPERVISOR BUFFING AND PASTING prior to attempts at physical therapy. Asked the patient if he wanted additional pain medicine today and he refused, saying that he thought his current symptom control was quite satisfactory. HEMATURIA- on going- again thought will continue until can start chemo. ANOREXIA- suspect will improve a bit with adequate pain control. As per Dr. Roman Curry- chemo will begin Wednesday by Dr. Phipps. -DPOA/Advanced Directives/POLST-Paperwork for DPOAHC/AD given. He defines his Jessika as first and son Ken as 2nd. His goal is for aggressive management at this point-FULL CODE and chemo surg as indicated -Family/emotional support-primarily his who also works time recorder and is sole support for income as well as for health care. Reviewed concerns for her support-friends and their son. -Spiritual support-not interested. Additional Medical Diagnoses with primary management by Hospitalist team include : # Acute respiratory failure, # Fever, leukocytosis. Resolved. # Hemorrhagic shock, resolved. Massive transfusion with RBCs, FFP and cryoprecipitate. Secondary to acute blood loss anemia following bladder tumor resection. Required triple pressors. # Severe Acute blood loss anemia, acute. Secondary to hematuria in the setting of bladder tumor resection. Goal Hgb 8. # Bladder carcinoma, new diagnosis. #Type II diabetes mellitus with hyperglycemia. # Obesity, POA. Problems: End of Life Preferences Full code; all aggressive treatment necessary Goals of Care FULL CODE and aggressive treatment at this time Disposition Reviewed consideration for SNF if possible once closer to discharge-vs Resuscitation Status Resuscitation Status: CPR: Attempt Resuscitation POLST Updates/Changes Previous POLST?: No POLST Discussed with: Patient . Pain: Mild Symptom management: Pain Total time 35 minutes; >50% face to face with patient , providing counselling regarding plans and recommendations, and in care coordination with his medical teams. Palliative Brief Note Date of Service Jun 18, 2016 . Returned to reevaluate patient. Prior to visiting, reviewed his updated records in the EMR in detail, spoke with his bedside nurse, and received signout from his previous palliative provider. On my arrival, I find him lying in bed, in no distress. He says that he feels considerably better today- pain control is much improved, he has had no nausea, no trouble breathing, etc. He says that he is really hungry for a [employer] doughnut. Reviewed in detail his use of his various pain medications through the night and responses to treatment. Physical exam remained stable with no new findings. Thomas Naqvi MD Jun 18, 2016 14:34
--- NOTE | 2016-06-18 15:05 | PCM.PNMED ---
Subjective Date of Service Jun 18, 2016 Subjective Patient resting in bed comfortably, less sedated today. He states pain is better controlled. Social pain mostly from urinary catheter rather than abdominal/bladder pain. Patient denies chest pain, nausea vomiting, diarrhea or constipation. Exam Vital Signs Vital Sign - Last Date Time Temp Pulse Resp B/P Pulse Ox O2 Delivery O2 Flow Rate FiO2 06/18/16 12:30 15 97 06/18/16 12:30 36.7 94 126/67 Nasal Cannula 3.00 06/13/16 12:05 45 Intake and Output 06/17/16 06/17/16 06/18/16 Cumulative From/Thru 15:00 23:00 07:00 06/10/16 00:53 - 06/18/16 04:31 Intake Total 800 ml 1670 ml 680 ml 12056 ml Output Total 2053 ml 400 ml 28706 ml Balance 800 ml -383 ml 280 ml -40027 ml Intake Oral 1500 ml 250 ml 2620 ml IV Total 800 ml 170 ml 430 ml 20602 ml Tube Feeding 384 ml Autotransfusion 2400 ml Packed Cells 1325 ml FFP 400 ml Tube Irrigant 145 ml Output Urine Total 2050 ml 400 ml 94732 ml Gastric Drainage Total 250 ml Estimated Blood Loss 3 ml 303 ml # Bowel Movements 0 0 Exam General: Alert, Oriented X3, NAD Head: Normocephalic, atraumatic Eyes: MARLEN, EOMI, no scleral Icterus Chest: clear to auscultation B/L, no wheezing rales or rhonchi Heart: Regular rate and rhythm. Normal S1, S2, no murmurs noted Abdomen: soft, non-tender. Bowel sounds are normoactive. No guarding or rebound. Extremities: no cyanosis, clubbing or edema. IVs and Medications Medications Reviewed: Medications were reviewed in detail Lab and Diagnostics Result Diagram: 06/18/16 0300 06/18/16 0300 Microbiology MRSA negative X-Rays, CTs and MRIs PROCEDURE: X-RAY CHEST ONE VIEW, PORTABLE ([id number]) IMPRESSION: 1. Markedly rotated patient. Central venous catheter is projected over the expected region of the SVC. However, repeat study without rotation is recommended. Dictated by: Lois Watt M.D. on 06/10/2016 at 21:07 PROCEDURE: X-RAY CHEST ONE VIEW, PORTABLE ([id number]) IMPRESSION: Bibasilar atelectasis versus aspiration or pneumonia. Correlate clinically. Dictated by: Victorino Long RRA Interpreted: Lizzy Mays MD on 06/12/2016 at 9:41 . Additional Diagnostics PROCEDURE: EMBOLIZATION OF BLEED IMPRESSION: 1. Status post coil embolization of the right internal iliac artery. Please note , despite the lack of active extravasation visualized on the study, the decision was made to embolize the right internal iliac artery as the patients clinical status suggested continued, occult arterial hemorrhage. Dictated by: Lois Watt M.D. on 06/11/2016 at 13:20 . Assessment & Plan # Acute respiratory failure, -Improved/resolved. Still requiring some oxygen supplementation. -Initially intubated for airway protection. # Fever, leukocytosis. Resolved. Will continue Zosyn to Wednesday, then dc. # Hemorrhagic shock, resolved. Massive transfusion with RBCs, FFP and cryoprecipitate. Secondary to acute blood loss anemia following bladder tumor resection. Required triple pressors. Improved, patient off pressors. # Severe Acute blood loss anemia, acute. Secondary to hematuria in the setting of bladder tumor resection. Goal Hgb 8. - Still with hematuria, improving slowly. - HCT stable at this time. # Bladder carcinoma, new diagnosis. -Current plan is to achieve hemostasis, then patient to receive neoadjuvant chemotherapy followed by cystectomy later date. -Chemotherapy port placed 06/17/2016 with no reported, occasional. -Oncology following, plans for initiation of chemotherapy - Urology, Dr. Curry is following. Urology asks for dc when able (based on resolution of hematuria) and outpt follow up regarding tumor (high grade). Tumor board will discuss in the next week. #Type II diabetes mellitus with hyperglycemia. - subcutaneous insulin # Obesity, POA. GI prophylaxis: Famotidine twice a day CODE STATUS: Full code DVT prophylaxis: SCDs, no heparin products due to current bleeding Disposition: Home, pending hospital course. GI Prophylaxis: H2 leanna VTE Mechanical Devices: Intermittant Pneumatic CD Resuscitation Status: CPR: Attempt Resuscitation Dudley Atkinson DO Jun 18, 2016 15:05
--- NOTE | 2016-06-18 15:57 | NUR ---
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 Up with PT at bedside and walked up and down the length of the bed twice. Taking full liquids moderately. Pt does not want to advance his diet although he can. Pt states he is afraid of having a BM. 3L/NC with sats stable. When pt naps his sats drop on 2L/NC. CBI at a very slow rate. Weathers patent and urine dark brownish in color in the bag. Urine clearer in the tubing with very tiny clots. No increase in red urine with pt getting up. Linens changed and back skin care done. NSR. Pt remains pale. Saline lock x2 patent without redness or swelling at the site. E: Improving S: Alert and oriented. Uses call light appropriately. Plan with PT is to sit up in chair tomorrow. Frequent rounding.
--- NOTE | 2016-06-18 17:02 | NUR ---
Transfer Pt transferred from 2015 to [facility] unit 1015. Arrived at 1700 via CCU bed. A&OX3, FRITZ - gen weakness, VSS - on 3L (sats 94%), SCDs on, Belongings brought down with pt, Chart and meds brought down (meds in drawer). LIBRARY MEDIA SPECIALIST Dilaudid .2mg/10min/1.2mg lockout, PIV x2 with NS at TKO to both IVs, Dressing to right chest CDI, Bandaid to right neck, CBI thakkar with brownish urine. Oriented to room. present in room. Addendum: 06/18/16 at 1930 by MATTHEW DALAL RN Pt came to floor with CBI infusing - ~1200 remaining in bag. At change of shift, bag empty and 1650ml output. with total of 450ml true urine. Addendum: 06/18/16 at 1934 by MATTHEW DALAL RN Thakkar drained prior to pt transfer with unaccounted 2400ml output via catheter. Believe that this is from the 3L bag started upstairs prior to transfer. Will claim the whole 3L bag making total of 4050ml output; with subtraction of 3L = 1050ml true urine.
[2016-06-19] VITALS (9 sets, daily range): BP systolic 117–134; BP diastolic 69–82; PULSE 63–99; RESP 16–20; O2SAT 94–97
[2016-06-19] MEDS: Piperacillin-Tazo 3.375 Gm Inj 3.375 GM in Dextrose 5% Minibag Plus 50 ML IV SCH ×3 (02:29→19:41)
--- NOTE | 2016-06-19 03:37 | NUR ---
Update Pt. reports pain is well controlled with LAN/WAN ENGINEER. Pt's catheter has been draining lightly dayanara urine. Will continue to monitor.
[2016-06-19 05:56] LABS: Mean Corpuscular Hemoglobin 28.5 pg (27.0-35.0); Mean Corpuscular Volume 88.8 fL (81-100)
[2016-06-19] MEDS: Insulin LISPRO 300 Unit/3 mL Inj SUBQ SCH ×4 (07:55→22:00)
--- NOTE | 2016-06-19 09:00 | NUR ---
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 Tolerating full liquids. Denies nausea. No emesis noted. He continues to be on O2 at 2 LPM via NC. PO2 on room air in the high 80's. Denies SOB. + generalized edema noted. CBI ongoing. Peg colored UO noted without any clots. Per RN notes yesterday patient was able to ambulate at the bedside. He has not ambulated this morning yet. Dr. Phipps made aware RE: Patients progress. PT and IV Lasix order received. Per Dr. Phipps chemo is planned for Wednesday. Care continues.
[2016-06-19] MEDS: HYDROmorphone PCA 0.2 mg/mL 30 mL Inj IV PRN ×2 (09:01→19:36)
--- NOTE | 2016-06-19 11:53 | PCM.PNMED ---
Subjective Date of Service Jun 19, 2016 Subjective Pt doing well today. He has no complaints at this time. 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 Exam Vital Signs Vital Sign - Last Date Time Temp Pulse Resp B/P Pulse Ox O2 Delivery O2 Flow Rate FiO2 06/19/16 10:37 Nasal Cannula 06/19/16 07:53 36.7 79 16 132/79 97 2.00 06/13/16 12:05 45 Intake and Output 06/18/16 06/18/16 06/19/16 Cumulative From/Thru 15:00 23:00 07:00 06/10/16 00:53 - 06/19/16 06:39 Intake Total 785 ml 1227 ml 44224 ml Output Total 1050 ml 1500 ml 62025 ml Balance -265 ml -273 ml -82862 ml Intake Oral 480 ml 886 ml 3986 ml IV Total 305 ml 341 ml 29922 ml Tube Feeding 384 ml Autotransfusion 2400 ml Packed Cells 1325 ml FFP 400 ml Tube Irrigant 145 ml Output Urine Total 1050 ml 1500 ml 50694 ml Gastric Drainage Total 250 ml Estimated Blood Loss 303 ml # Bowel Movements 0 Exam GENERAL: NAD, Pt laying in bed comfortably HEENT: AT/NC, PERRLA, EOMI, Mucus Membranes are moist CARDIAC: RRR; No M/R/G PULM: CTAB; No wheezes or rhonchi bilaterally ABD: Soft, Nontender, Nondistended, Positive bowel sounds in all quadrants, No Hepatosplenomegaly appreciated EXT: No C/C/E; No calf tenderness bilaterally SKIN: Warm, Dry, [place], and Intact NEURO: Alert and oriented x3; Following all commands PSYCH: Normal mood and affect IVs and Medications Medications Reviewed: Medications were reviewed in detail Lab and Diagnostics Result Diagram: 06/19/16 0545 06/18/16 0300 Microbiology MRSA negative X-Rays, CTs and MRIs PROCEDURE: X-RAY CHEST ONE VIEW, PORTABLE ([id number]) IMPRESSION: 1. Markedly rotated patient. Central venous catheter is projected over the expected region of the SVC. However, repeat study without rotation is recommended. Dictated by: Lois Watt M.D. on 06/10/2016 at 21:07 PROCEDURE: X-RAY CHEST ONE VIEW, PORTABLE ([id number]) IMPRESSION: Bibasilar atelectasis versus aspiration or pneumonia. Correlate clinically. Dictated by: Victorino Long RRA Interpreted: Lizzy Mays MD on 06/12/2016 at 9:41 . Additional Diagnostics PROCEDURE: EMBOLIZATION OF BLEED IMPRESSION: 1. Status post coil embolization of the right internal iliac artery. Please note , despite the lack of active extravasation visualized on the study, the decision was made to embolize the right internal iliac artery as the patients clinical status suggested continued, occult arterial hemorrhage. Dictated by: Lois Watt M.D. on 06/11/2016 at 13:20 . Assessment & Plan 1. Acute Respiratory Failure, Hypoxemic - Secondary to Hemorrhagic Shock - Resolved - Pt was initially intubated for airway protection 2. Fever with Leukocytosis - Source unclear but may be related to Aspiration - Continue IV Zosyn at current dose thru Wednesday - Pt is now afebrile and his WBC count has normalized - Check Procalcitonin now 3. Hemorrhagic Shock - Resolved - Secondary to massive bleed post bladder tumor resection - Pt is status post massive PRBC transfusion and pt at one time required significant pressor support 4. Acute Blood Loss Anemia - See above - Continue to monitor H/H - H/H is stable at this time 5. Bladder Cancer - Oncology on board - Pt to start chemotherapy on Wednesday 6. Diabetes Mellitus, Type II - Continue SSI - Continue checking FSBS q AC and HS - Carbohydrate controlled diet GI Prophylaxis: H2 leanna VTE Mechanical Devices: Intermittant Pneumatic CD Resuscitation Status: CPR: Attempt Resuscitation Terry Hui MD Jun 19, 2016 11:53
[2016-06-19] MEDS: 0.9% Sodium Chloride 250 ML BOLUS IV PRN (12:46)
[2016-06-19] MEDS: Furosemide 10 mg/mL 2 mL Inj IV SCH (12:50)
--- NOTE | 2016-06-19 13:00 | NUR ---
CBI CBI stopped by Dr. Curry at this time. Peg colored UO noted. No clots noted. Per Dr. Curry he will check on the patient this afternoon and will determine at that time what to do with the CBI. Care continues.
--- NOTE | 2016-06-19 13:51 | PCM.PALLBR ---
Palliative Care Recommendation Summary of palliative recommendations: -Symptom management (Pain/other)- PAIN-Associated with bladder spasms. Significantly worse with activity associated with physical therapy. Dr. Curry, his urologist, expects quick results once chemo is initiated and further expects that discomfort associated with the bladder tumor will improve rapidly once therapy initiated. For now, continue hydromorphone SECURITY CONTROL ROOM OFFICER initiated by Dr. Romero and also continue antispasmodics- oxybutynin 5 mg tid and B&O supp. prn Plan on continuing SECURITY CONTROL ROOM OFFICER through the weekend, and then begin transitioning to oral /outpatient pain regimen after review of his narcotic requirement/usage over the weekend. Discussed with his nurse the need to use bolus pain medicine via SECURITY CONTROL ROOM OFFICER prior to attempts at physical therapy. HEMATURIA- decreasing, though expected to continue intermittently until can start chemo. ANOREXIA- suspect will improve a bit with adequate symptom control. As per Dr. Roman Curry- chemo will begin Wednesday by Dr. Phipps. -DPOA/Advanced Directives/POLST- Paperwork for DPOAHC/AD given. He defines his Jessika as first and son Ken as 2nd. His goal is for aggressive management at this and he continues to be FULL CODE with aggressive chemotherapy/surgical therapy for his bladder cancer -Family/emotional support-primarily his who also works time piece repairer and is sole support for income as well as for health care. Reviewed concerns for her support-friends and their son. -Spiritual support-not interested. Additional Medical Diagnoses with primary management by Hospitalist team include : # Acute respiratory failure, # Fever, leukocytosis. Resolved. # Hemorrhagic shock, resolved. Massive transfusion with RBCs, FFP and cryoprecipitate. Secondary to acute blood loss anemia following bladder tumor resection. Required triple pressors. # Severe Acute blood loss anemia, acute. Secondary to hematuria in the setting of bladder tumor resection. Goal Hgb 8. # Bladder carcinoma, new diagnosis. #Type II diabetes mellitus with hyperglycemia. # Obesity, POA. Problems: End of Life Preferences Full code; all aggressive treatment necessary Goals of Care FULL CODE and aggressive treatment at this time Disposition Reviewed consideration for SNF if possible once closer to discharge-vs Resuscitation Status Resuscitation Status: CPR: Attempt Resuscitation POLST Updates/Changes Previous POLST?: No POLST Discussed with: Patient Total time 30 minutes; >50% face to face with patient , providing counselling regarding plans and recommendations, and in care coordination with his medical teams. Palliative Brief Note Date of Service Jun 19, 2016 . Return to see patient. Prior to visiting, reviewed his updated records in the EMR in detail, and later reviewed status with his bedside nurse. He noted that he had a bad night- the transfer to first floor and some subsequent issues with his Weathers catheter/irrigation led to a lot of discomfort and distress. Very little sleep. This morning he is significantly more comfortable and feels that he is getting adequate pain medication. He requested that we return later to talk further when his would be present. Physical exam stable. CBC stable, procalcitonin down Thomas Naqvi MD Jun 19, 2016 13:51
--- NOTE | 2016-06-19 17:00 | PROG NOTE ---
[address] [address] PROGRESS NOTE PATIENT: DIANA CROWELL : 1965 MR#: [id number] ADMIT: 06/10/2016 JOB ID: [id number] DATE: Postop day nine, TUR bladder tumor with severe postop hemorrhage. Bladder irrigations have been discontinued for the last six hours and the urine remains clear with some debris but no active bleeding. The patient has ambulated twice during this interval. I will switch the CBI to a p.r.n. basis to be restarted only if there is active bleeding. LABORATORY DATA: Hematocrit stable. Renal function stable. EXAMINATION: Obese, 51-year-old man in no acute distress. I would not plan on removing his catheter at all at this time. I would expect him to be discharged home with the catheter in place. I would like him to be up and ambulating fully for at least 24-48 hours prior to discharge with no active bleeding. If those criteria are met then I think he can be discharged home on oral analgesics and oral antibiotics. He will follow up with Dr. Phipps next week to initiate neoadjuvant chemotherapy.
--- NOTE | 2016-06-19 17:26 | NUR ---
mechanical design engineer facilitiesnuclear waste management engineer note: Introduce myself to patient and explained my role as plant manager. Chemo teaching for [facility] completed including common side effects. Provided patient with my card if he still had any questions or concerns. Informed patient I would be off this weekend. Provided patient with the [employer] "Chemotherapy and You" booklet. Will continue to follow.
--- NOTE | 2016-06-19 19:00 | NUR ---
POST-OP PROGRESS/MD NOTIFICATION TRUCKING SUPERVISOR Dilaudid has been adequate for pain control. Tolerating full liquids PO. Denies nausea. No emesis noted. Continues to be on O2 at 2 LPM via NC. PO2 on room air in the high 80's. Instructed on importance of IS use. Patient verbalized understanding. CBI d/cd per Dr. Curry. IFC intact and draining to dayanara colored UO. Sediments noted at this time. No blood clots noted. Patient ambulated in the room. 1-2 PA to get OOB but has been able to tolerate ambulating in the room with SBA and the FWW. No BM noted. Dr. Curry made aware. New orders for Senna received.
[2016-06-19] MEDS: LORazepam 1 mg Tablet PO PRN (20:22)
[2016-06-19] MEDS: Senna-Docusate 8.6-50 mg Tablet PO SCH (20:23)
[2016-06-20] VITALS (10 sets, daily range): BP systolic 115–127; BP diastolic 66–78; PULSE 85–97; RESP 16–20; O2SAT 93–98
--- NOTE | 2016-06-20 01:39 | NUR ---
Mobility Up in chair and amb. in room with SBA and [place]. well.VSS.Abd. soft with hypoactive BT,passing flatus yet no BM thus far.[place]. po fluids w/o c/o nausea.UOP qs via parminder thakkar. pink-dayanara in color with some small clots noted.Pain controlled with SECRETARY ADMINISTRATIVE ASSISTANT dilaudid. at bedside and very supportive.Sleeping intermittently and resting comfortably at this time.Will cont. to monitor.
[2016-06-20] MEDS: Piperacillin-Tazo 3.375 Gm Inj 3.375 GM in Dextrose 5% Minibag Plus 50 ML IV SCH ×4 (02:36→18:58)
[2016-06-20] MEDS: HYDROmorphone PCA 0.2 mg/mL 30 mL Inj IV PRN ×3 (03:20→22:41)
[2016-06-20] MEDS: LORazepam 1 mg Tablet PO PRN ×2 (06:06→20:13)
[2016-06-20 06:10] LABS: BASOPHILS % (AUTO) 0.7 % (0-3); MONOCYTES % (AUTO) 7.8 % (4-12); Mean Corpuscular Hemoglobin 29.5 pg (27.0-35.0); Mean Corpuscular Volume 88.2 fL (81-100); NEUTROPHILS % (AUTO) 56.7 % (40-74); Platelet Count 234 bil/L (150-400)
[2016-06-20] MEDS: Insulin LISPRO 300 Unit/3 mL Inj SUBQ SCH ×4 (07:40→21:12)
[2016-06-20] MEDS: Furosemide 10 mg/mL 2 mL Inj IV SCH (08:32)
[2016-06-20] MEDS: Senna-Docusate 8.6-50 mg Tablet PO SCH ×2 (08:32→20:13)
--- NOTE | 2016-06-20 10:27 | PCM.PNSURG ---
Subjective Date of Service: Jun 20, 2016 Date of Service: Jun 20, 2016 Visit Information: Reason for Visit Bladder Mass Surgery/Surgery Date Post-Op Day # 10 Date of Admission: Jun 10, 2016 at 00:46 Hospital Day #10 Subjective: Pt supine and sleepy during exam, no new complaints at this time. Postop General: No Shortness of Breath, No Chest Pain Pain Management: SHIRT IRONER SUPERVISOR with Basal Postop Activity: Ambulate with Assist Objective Vital Sign- Last 8 Hours Date Time Temp Pulse Resp B/P Pulse Ox O2 Delivery O2 Flow Rate FiO2 06/20/16 08:12 36.8 95 17 116/66 96 Room Air 06/20/16 07:45 17 96 06/20/16 07:45 Supplement Oxygen 06/20/16 05:51 36.9 95 19 115/67 96 Nasal Cannula 3.00 06/20/16 05:11 18 94 Intake and Output- Last 8 Hour 06/20/16 Cumulative From/Thru 07:00 06/10/16 00:53 - 06/20/16 05:11 Intake Total 137 ml 51231 ml Output Total 90211 ml Balance 137 ml -00373 ml Intake Oral 4858 ml IV Total 137 ml 46421 ml Tube Feeding 384 ml Autotransfusion 2400 ml Packed Cells 1325 ml FFP 400 ml Tube Irrigant 145 ml Output Urine Total 43148 ml Gastric Drainage Total 250 ml Estimated Blood Loss 303 ml # Bowel Movements 0 General: Alert, Oriented X3, No Acute Distress Neck: Supple Lungs: Normal Air Movement Abdomen: Soft, Non-tender, Non-distended Extremities: Distal Pulses Palpable Neuro: Grossly Neurologically Intact Result Diagram: 06/20/16 0537 06/20/16 0537 Assessment & Plan Plan Pt is POD #10, s/p TUR bladder tumor with severe postop hemorrhage. Bladder irrigations were discontinued one day ago with clear urine up until this morning. Urine appears blood tinged, bright redfor the The patient has been ambulating, discussed increasing ambulation. CBI switched to a p.r.n. basis, will restart this morning due to active bleeding, and will monitor him over the course of today. He will be discharged home with catheter in place. He will increase ambulation today. Hemorrhagic Shock - Resolved - Secondary to massive bleed post bladder tumor resection - Pt is status post massive PRBC transfusion and pt at one time required significant pressor support Acute Blood Loss Anemia - Hematocrit stable. Renal function stable. will continue to monitor. Bladder Cancer - Port placement one day ago, he will start chemo on Wednesday. - He will follow up with Dr. Phipps next week to initiate neoadjuvant chemotherapy. He was given contact information for their office today. Diet - Can advance diet today to PO Criteria for discharge: I would like him to be up and ambulating fully for at least 24-48 hours prior to discharge with no active bleeding. If those criteria are met then I think he can be discharged home on oral analgesics and oral antibiotics. Resuscitation Status: CPR: Attempt Resuscitation Paulina Duran PA-C Jun 20, 2016 10:27 - Pt is status post massive PRBC transfusion and pt at one time required significant pressor support 4. Acute Blood Loss Anemia - See above - Continue to monitor H/H - H/H is stable at this time 5. Bladder Cancer - Oncology on board - Pt to start chemotherapy on Wednesday 6. Diabetes Mellitus, Type II - Continue SSI - Continue checking FSBS q AC and HS - Carbohydrate controlled diet Resuscitation Status: CPR: Attempt Resuscitation Paulina Duran PA-C Jun 20, 2016 10:27
--- NOTE | 2016-06-20 10:40 | PCM.PNMED ---
Subjective Date of Service Jun 20, 2016 Subjective Pt doing well this morning. He reports his penile pain is well controlled with the Dilaudid METAL RECLAMATION KETTLE TENDER he remains on. He denies any fever, abdominal pain, nausea, or vomiting. No complaints today. Exam Vital Signs Vital Sign - Last Date Time Temp Pulse Resp B/P Pulse Ox O2 Delivery O2 Flow Rate FiO2 06/20/16 08:12 36.8 95 17 116/66 96 Room Air 06/20/16 05:51 3.00 Intake and Output 06/19/16 06/19/16 06/20/16 Cumulative From/Thru 15:00 23:00 07:00 06/10/16 00:53 - 06/20/16 05:11 Intake Total 1041 ml 137 ml 46182 ml Output Total 1900 ml 38724 ml Balance -859 ml 137 ml -30899 ml Intake Oral 872 ml 4858 ml IV Total 169 ml 137 ml 97799 ml Tube Feeding 384 ml Autotransfusion 2400 ml Packed Cells 1325 ml FFP 400 ml Tube Irrigant 145 ml Output Urine Total 1900 ml 86341 ml Gastric Drainage Total 250 ml Estimated Blood Loss 303 ml # Bowel Movements 0 Exam GENERAL: NAD, Pt laying in bed comfortably HEENT: AT/NC, PERRLA, EOMI, Mucus Membranes are moist CARDIAC: RRR; No M/R/G PULM: CTAB; No wheezes or rhonchi bilaterally ABD: Soft, Nontender, Nondistended, Positive bowel sounds in all quadrants, No Hepatosplenomegaly appreciated NEURO: Alert and oriented x3; Following all commands PSYCH: Normal mood and affect IVs and Medications Medications Reviewed: Medications were reviewed in detail Lab and Diagnostics Result Diagram: 06/20/1653606/20/16536 Microbiology MRSA negative X-Rays, CTs and MRIs PROCEDURE: X-RAY CHEST ONE VIEW, PORTABLE ([id number]) IMPRESSION: 1. Markedly rotated patient. Central venous catheter is projected over the expected region of the SVC. However, repeat study without rotation is recommended. Dictated by: Lois Watt M.D. on 06/10/2016 at 21:07 PROCEDURE: X-RAY CHEST ONE VIEW, PORTABLE ([id number]) IMPRESSION: Bibasilar atelectasis versus aspiration or pneumonia. Correlate clinically. Dictated by: Victorino Long RRA Interpreted: Lizzy Mays MD on 06/12/2016 at 9:41 . Additional Diagnostics PROCEDURE: EMBOLIZATION OF BLEED IMPRESSION: 1. Status post coil embolization of the right internal iliac artery. Please note , despite the lack of active extravasation visualized on the study, the decision was made to embolize the right internal iliac artery as the patients clinical status suggested continued, occult arterial hemorrhage. Dictated by: Lois Watt M.D. on 06/11/2016 at 13:20 . Assessment & Plan 1. Acute Respiratory Failure, Hypoxemic - Secondary to Hemorrhagic Shock - Resolved - Pt was initially intubated for airway protection 2. Fever with Leukocytosis - Source unclear but may be related to Aspiration - Continue IV Zosyn at current dose thru Wednesday - Pt remains afebrile and his WBC count has normalized - Procalcitonin is essentially negative 3. Hemorrhagic Shock - Resolved - Secondary to massive bleed post bladder tumor resection - Pt is status post massive PRBC transfusion and pt at one time required significant pressor support 4. Acute Blood Loss Anemia - See above - Continue to monitor H/H - H/H is stable at this time 5. Bladder Cancer - Oncology on board - Pt to start chemotherapy on Wednesday - Continue Dilaudid METAL RECLAMATION KETTLE TENDER for penile pain thru weekend, Palliative Care managing 6. Diabetes Mellitus, Type II - Continue SSI - Continue checking FSBS q AC and HS - Carbohydrate controlled diet GI Prophylaxis: H2 leanna VTE Mechanical Devices: Intermittant Pneumatic CD Resuscitation Status: CPR: Attempt Resuscitation Terry Hui MD Jun 20, 2016 10:40
--- NOTE | 2016-06-20 18:01 | NUR ---
CBI RESTARTED Irrigation was restarted through [address] thakkar due to blood clots present in catheter tubing, urine is a dark pink almost red in color. Patient states he can feel clots passing through. States LEADERSHIP PROGRAM INTERN is helping to manage pain, along with PRN tylenol. Care continues.
[2016-06-21] VITALS (12 sets, daily range): BP systolic 95–136; BP diastolic 54–81; PULSE 88–111; RESP 16–20; O2SAT 92–98
--- NOTE | 2016-06-21 02:14 | NUR ---
Urinary output True UOP qs.Some occasional small clots noted otherwise clear dayanara-pink in color. irrigant running at a slow rate.VSS.[place]. po fluids qs w/o c/o nausea.Pain controlled with CONCESSIONIST dilaudid.Ativan adm. at HS to facilitate sleep yet has been awake thus far.Resting comfortably.Will cont. to monitor.
[2016-06-21] MEDS: Piperacillin-Tazo 3.375 Gm Inj 3.375 GM in Dextrose 5% Minibag Plus 50 ML IV SCH ×3 (02:44→18:25)
[2016-06-21] MEDS: Senna-Docusate 8.6-50 mg Tablet PO SCH ×2 (08:13→20:44)
[2016-06-21] MEDS: Insulin LISPRO 300 Unit/3 mL Inj SUBQ SCH ×4 (08:13→22:39)
[2016-06-21] MEDS: Furosemide 10 mg/mL 2 mL Inj IV SCH (08:14)
[2016-06-21 08:54] LABS: BASOPHILS % (AUTO) 0.6 % (0-3); EOSINOPHILS % (AUTO) 2.3 % (0-5); MONOCYTES % (AUTO) 7.7 % (4-12); Mean Corpuscular Hemoglobin 29.4 pg (27.0-35.0); Mean Corpuscular Volume 87.1 fL (81-100); NEUTROPHILS % (AUTO) 73.2 % (40-74); Platelet Count 273 bil/L (150-400)
--- NOTE | 2016-06-21 09:20 | PCM.PNSURG ---
Subjective Date of Service: Jun 21, 2016 Date of Service: Jun 21, 2016 Visit Information: Reason for Visit Bladder Mass Surgery/Surgery Date 06/11/16 Post-Op Day # 10 Date of Admission: Jun 10, 2016 at 00:46 Hospital Day #11 Subjective: Pt sitting in chair during exam, complains of pain around glans associated with catheter. has been ambulating, feels deconditioned but otherwise has no new complaints at this time. Gastrointestinal: Tolerating Oral Feedings Objective Vital Sign- Last 8 Hours Date Time Temp Pulse Resp B/P Pulse Ox O2 Delivery O2 Flow Rate FiO2 06/21/16 06:37 36.7 95 18 128/69 95 Nasal Cannula 3.00 06/21/16 03:54 18 92 Intake and Output- Last 8 Hour 06/21/16 Cumulative From/Thru 07:00 06/10/16 00:53 - 06/21/16 06:37 Intake Total 871 ml 56308 ml Output Total 925 ml 35392 ml Balance -54 ml -76967 ml Intake Oral 750 ml 9268 ml IV Total 121 ml 17230 ml Tube Feeding 384 ml Autotransfusion 2400 ml Packed Cells 1325 ml FFP 400 ml Tube Irrigant 145 ml Output Urine Total 925 ml 30934 ml Gastric Drainage Total 250 ml Estimated Blood Loss 303 ml # Bowel Movements 0 0 General: Alert, Oriented X3, No Acute Distress Neck: Supple Lungs: Normal Air Movement Abdomen: Soft, Non-tender, Non-distended Extremities: Distal Pulses Palpable Neuro: Grossly Neurologically Intact Result Diagram: 06/21/16 0830 06/20/16 0537 Assessment & Plan Plan Pt is POD #10, s/p TUR bladder tumor with severe postop hemorrhage. Bladder irrigations were discontinued 2 days ago however were restarted yesterday due to clot retention and active bleeding. The patient has been ambulating, discussed increasing ambulation. We will attempt to stop CBI again tomorrow morning. Hemorrhagic Shock - Resolved - Secondary to massive bleed post bladder tumor resection - Pt is status post massive PRBC transfusion and pt at one time required significant pressor support Acute Blood Loss Anemia - Hematocrit stable, improved today. Renal function stable. will continue to monitor. Bladder Cancer - Port placement several days ago, he will start chemo on Wednesday. - He will follow up with Dr. Phipps next week to initiate neoadjuvant chemotherapy. He was given contact information for their office today. Diet -Advanced Diet yesterday to PO. Criteria for discharge: I would like him to be up and ambulating fully for at least 24-48 hours prior to discharge with no active bleeding. If those criteria are met then I think he can be discharged home on oral analgesics and oral antibiotics, and will be discharged home with catheter in place. Resuscitation Status: CPR: Attempt Resuscitation Paulina Duran PA-C Jun 21, 2016 09:20
--- NOTE | 2016-06-21 10:10 | PCM.PNMED ---
Subjective Date of Service Jun 21, 2016 Subjective Pt doing well. He states his pain is well controlled with DISTRICT WILDLIFE MANAGER. He has not been ambulating much stating he is "feeling weak". No other complaints or concerns at this time. Exam Vital Signs Vital Sign - Last Date Time Temp Pulse Resp B/P Pulse Ox O2 Delivery O2 Flow Rate FiO2 06/21/16 10:07 36.7 111 20 95/54 92 Room Air 06/21/16 06:37 3.00 Intake and Output 06/20/16 06/20/16 06/21/16 Cumulative From/Thru 15:00 23:00 07:00 06/10/16 00:53 - 06/21/16 06:37 Intake Total 960 ml 2873 ml 871 ml 47624 ml Output Total 1800 ml 3000 ml 925 ml 41124 ml Balance -840 ml -127 ml -54 ml -80094 ml Intake Oral 960 ml 2700 ml 750 ml 9268 ml IV Total 173 ml 121 ml 79503 ml Tube Feeding 384 ml Autotransfusion 2400 ml Packed Cells 1325 ml FFP 400 ml Tube Irrigant 145 ml Output Urine Total 1800 ml 3000 ml 925 ml 50377 ml Gastric Drainage Total 250 ml Estimated Blood Loss 303 ml # Bowel Movements 0 0 Exam GENERAL: NAD, Pt laying in bed comfortably HEENT: AT/NC, PERRLA, EOMI, Mucus Membranes are moist CARDIAC: RRR; No M/R/G PULM: CTAB; No wheezes or rhonchi bilaterally ABD: Soft, Nontender, Nondistended, Positive bowel sounds in all quadrants, No Hepatosplenomegaly appreciated NEURO: Alert and oriented x3; Following all commands PSYCH: Normal mood and affect IVs and Medications Medications Reviewed: Medications were reviewed in detail Lab and Diagnostics Result Diagram: 06/21/16 0830 06/21/16 0830 Microbiology MRSA negative X-Rays, CTs and MRIs PROCEDURE: X-RAY CHEST ONE VIEW, PORTABLE ([id number]) IMPRESSION: 1. Markedly rotated patient. Central venous catheter is projected over the expected region of the SVC. However, repeat study without rotation is recommended. Dictated by: Lois Watt M.D. on 06/10/2016 at 21:07 PROCEDURE: X-RAY CHEST ONE VIEW, PORTABLE ([id number]) IMPRESSION: Bibasilar atelectasis versus aspiration or pneumonia. Correlate clinically. Dictated by: Victorino BREAUXA Interpreted: Lizzy Mays MD on 06/12/2016 at 9:41 . Additional Diagnostics PROCEDURE: EMBOLIZATION OF BLEED IMPRESSION: 1. Status post coil embolization of the right internal iliac artery. Please note , despite the lack of active extravasation visualized on the study, the decision was made to embolize the right internal iliac artery as the patients clinical status suggested continued, occult arterial hemorrhage. Dictated by: Lois Watt M.D. on 06/11/2016 at 13:20 . Assessment & Plan 1. Acute Respiratory Failure, Hypoxemic - Secondary to Hemorrhagic Shock - Resolved - Pt was initially intubated for airway protection 2. Fever with Leukocytosis - Source unclear but may be related to Aspiration - Continue IV Zosyn at current dose thru Wednesday - Pt remains afebrile and his WBC count has normalized - Procalcitonin is essentially negative 3. Hemorrhagic Shock - Resolved - Secondary to massive bleed post bladder tumor resection - Pt is status post massive PRBC transfusion and pt at one time required significant pressor support 4. Acute Blood Loss Anemia - See above - Continue to monitor H/H - H/H is stable at this time 5. Bladder Cancer - Oncology on board - Pt to start chemotherapy on Wednesday - Continue Dilaudid DISTRICT WILDLIFE MANAGER for penile pain thru , Palliative Care managing 6. Diabetes Mellitus, Type II - Continue SSI - Continue checking FSBS q AC and HS - Carbohydrate controlled diet 7. Generalized Weakness - Pt to ambulate as much as possible now - Will have PT work with patient also GI Prophylaxis: H2 leanna VTE Mechanical Devices: Intermittant Pneumatic CD Resuscitation Status: CPR: Attempt Resuscitation Terry Hui MD Jun 21, 2016 10:10
[2016-06-21] MEDS: HYDROmorphone PCA 0.2 mg/mL 30 mL Inj IV PRN (13:19)
--- NOTE | 2016-06-21 13:44 | NUR ---
Mobility/UOP Patient was up in chair at bedside for beginning of shift. SBA to mobility. patient stated he feel SOB with exertion. When ambulating back to bed, patient stated he felt dizzy and overall weak. CBI still running, urine output is pink tinged, a few small clots have come through.
--- NOTE | 2016-06-21 22:18 | NUR ---
CARE TRANSFERED; to Lubna Price rn at this time.
[2016-06-22] VITALS (11 sets, daily range): BP systolic 106–149; BP diastolic 72–91; PULSE 85–100; RESP 16–18; O2SAT 94–99
[2016-06-22] MEDS: HYDROmorphone PCA 0.2 mg/mL 30 mL Inj IV PRN ×2 (00:54→10:18)
[2016-06-22] MEDS: Piperacillin-Tazo 3.375 Gm Inj 3.375 GM in Dextrose 5% Minibag Plus 50 ML IV SCH (03:32)
--- NOTE | 2016-06-22 06:21 | NUR ---
CBI/PAIN CBI increased due to urine color getting darker pink in color, pt did pass clots into thakkar bag. Pt asked to try to not irrigate if at all possible, urine flowing and is now watermelon pink in color. Pt continues on MANAGER BUSINESS PLANNING Dilaudid and reports that when clots pass pain increases to 9/10 and pt has required Bolus x2. Pt reports this to be helpful in controlling pain.
[2016-06-22 06:27] LABS: BASOPHILS % (AUTO) 1.6 % (0-3); MONOCYTES % (AUTO) 9.7 % (4-12); Mean Corpuscular Hemoglobin 29.2 pg (27.0-35.0); Mean Corpuscular Volume 86.8 fL (81-100); NEUTROPHILS % (AUTO) 52.8 % (40-74); Platelet Count 209 bil/L (150-400)
[2016-06-22] MEDS: Insulin LISPRO 300 Unit/3 mL Inj SUBQ SCH ×4 (08:00→22:45)
[2016-06-22] MEDS: 0.9% Sodium Chloride 250 ML BOLUS IV PRN (08:05)
[2016-06-22] MEDS: Furosemide 10 mg/mL 2 mL Inj IV SCH (08:06)
[2016-06-22] MEDS: Senna-Docusate 8.6-50 mg Tablet PO SCH ×2 (08:47→20:38)
[2016-06-22] MEDS ORDERED: Polyethylene Glycol (PEG) 17 Gm Powder PO PRN (08:55)
--- NOTE | 2016-06-22 11:25 | PCM.PNMED ---
Subjective Date of Service Jun 22, 2016 Subjective Pt reports significant bladder pain last night and passing large clots. Urology has restarted pt on CBI. Pt states pain remains well controlled with TRUCK UNLOADER. Pt denies any fever. No other complaints or concerns at this time. Exam Vital Signs Vital Sign - Last Date Time Temp Pulse Resp B/P Pulse Ox O2 Delivery O2 Flow Rate FiO2 06/22/16 10:45 16 99 06/22/16 08:03 36.8 85 116/72 Nasal Cannula 2.00 Intake and Output 06/21/16 06/21/16 06/22/16 Cumulative From/Thru 15:00 23:00 07:00 06/10/16 00:53 - 06/22/16 06:34 Intake Total 1918 ml 726 ml 18697 ml Output Total 450 ml 1600 ml 82881 ml Balance 1468 ml -874 ml -81373 ml Intake Oral 1773 ml 600 ml 05548 ml IV Total 145 ml 126 ml 54978 ml Tube Feeding 384 ml Autotransfusion 2400 ml Packed Cells 1325 ml FFP 400 ml Tube Irrigant 145 ml Output Urine Total 450 ml 1600 ml 22362 ml Gastric Drainage Total 250 ml Estimated Blood Loss 303 ml # Bowel Movements 0 0 0 Exam GENERAL: NAD, Pt laying in bed comfortably HEENT: AT/NC, PERRLA, EOMI, Mucus Membranes are moist CARDIAC: RRR; No M/R/G PULM: CTAB; No wheezes or rhonchi bilaterally ABD: Soft, Nontender, Nondistended, Positive bowel sounds in all quadrants, No Hepatosplenomegaly appreciated EXT: No C/C/E; No calf tenderness bilaterally SKIN: Warm, Dry, [place], and Intact NEURO: Alert and oriented x3; Following all commands PSYCH: Normal mood and affect IVs and Medications Medications Reviewed: Medications were reviewed in detail Lab and Diagnostics Result Diagram: 06/22/1645 06/22/16 0545 Microbiology MRSA negative X-Rays, CTs and MRIs PROCEDURE: X-RAY CHEST ONE VIEW, PORTABLE ([id number]) IMPRESSION: 1. Markedly rotated patient. Central venous catheter is projected over the expected region of the SVC. However, repeat study without rotation is recommended. Dictated by: Lois Watt M.D. on 06/10/2016 at 21:07 PROCEDURE: X-RAY CHEST ONE VIEW, PORTABLE ([id number]) IMPRESSION: Bibasilar atelectasis versus aspiration or pneumonia. Correlate clinically. Dictated by: Victorino Long RRA Interpreted: Lizzy Mays MD on 06/12/2016 at 9:41 . Additional Diagnostics PROCEDURE: EMBOLIZATION OF BLEED IMPRESSION: 1. Status post coil embolization of the right internal iliac artery. Please note , despite the lack of active extravasation visualized on the study, the decision was made to embolize the right internal iliac artery as the patients clinical status suggested continued, occult arterial hemorrhage. Dictated by: Lois Watt M.D. on 06/11/2016 at 13:20 . Assessment & Plan 1. Acute Respiratory Failure, Hypoxemic - Secondary to Hemorrhagic Shock - Resolved - Pt was initially intubated for airway protection 2. Fever with Leukocytosis - Resolved - Source unclear but may be related to Aspiration - Pt completed a total of 10 days of IV Zosyn, and this was stoppedon 06/22/2016 - Pt remains afebrile and his WBC count remains normal - Procalcitonin is negative 3. Hemorrhagic Shock - Resolved - Secondary to massive bleed post bladder tumor resection - Pt is status post massive PRBC transfusion and pt at one time required significant pressor support 4. Acute Blood Loss Anemia - See above - Continue to monitor H/H - H/H is stable at this time 5. Bladder Cancer - Oncology on board - Pt to start chemotherapy on today, and Oncology is managing this - He will eventually need to have his bladder removed - Continue Dilaudid TRUCK UNLOADER for penile pain thru weekend, Palliative Care managing this however he should likely be switched to PO medications soon - Continue CBI for pts blood clots per Urology 6. Diabetes Mellitus, Type II - Continue SSI - Continue checking FSBS q AC and HS - Carbohydrate controlled diet 7. Generalized Weakness - Pt to ambulate as much as possible today - Will continue to have PT work with patient GI Prophylaxis: H2 leanna VTE Mechanical Devices: Intermittant Pneumatic CD Resuscitation Status: CPR: Attempt Resuscitation Terry Hui MD Jun 22, 2016 11:25
--- NOTE | 2016-06-22 12:05 | PCM.PNSURG ---
Subjective Date of Service: Jun 22, 2016 Date of Service: Jun 22, 2016 Visit Information: Reason for Visit Bladder Mass Surgery/Surgery Date Post-Op Day # 11 Date of Admission: Jun 10, 2016 at 00:46 Hospital Day #12 Subjective: Pt sitting in chair during exam, continues to c/o pain around glans associated with catheter, reports he didn't sleep well due to pain. He has been ambulating , feels deconditioned but otherwise has no new complaints at this time. Postop General: No Shortness of Breath, No Chest Pain Gastrointestinal: Tolerating Oral Feedings Objective Vital Sign- Last 8 Hours Date Time Temp Pulse Resp B/P Pulse Ox O2 Delivery O2 Flow Rate FiO2 06/22/16 10:45 16 99 06/22/16 08:03 36.8 85 16 116/72 99 Nasal Cannula 2.00 06/22/16 06:35 36.7 92 17 121/76 98 Room Air 06/22/16 06:24 16 98 Intake and Output- Last 8 Hour 06/22/16 Cumulative From/Thru 07:00 06/10/16 00:53 - 06/22/16 06:34 Intake Total 726 ml 06563 ml Output Total 1600 ml 48571 ml Balance -874 ml -51178 ml Intake Oral 600 ml 91938 ml IV Total 126 ml 03889 ml Tube Feeding 384 ml Autotransfusion 2400 ml Packed Cells 1325 ml FFP 400 ml Tube Irrigant 145 ml Output Urine Total 1600 ml 73940 ml Gastric Drainage Total 250 ml Estimated Blood Loss 303 ml # Bowel Movements 0 0 General: Alert, Oriented X3, No Acute Distress Neck: Supple Lungs: Normal Air Movement Abdomen: Soft, Non-tender, Non-distended Extremities: Distal Pulses Palpable Neuro: Grossly Neurologically Intact Result Diagram: 06/22/16 0545 06/22/16 0545 Assessment & Plan Plan Pt is POD #11, s/p TUR bladder tumor with severe postop hemorrhage. Bladder irrigations were discontinued 3 days ago however were restarted over the weekend due to clot retention and active bleeding. The patient has been ambulating, discussed increasing ambulation. We will attempt to stop CBI again tomorrow morning. Hemorrhagic Shock - Resolved - Secondary to massive bleed post bladder tumor resection - Pt is status post massive PRBC transfusion and pt at one time required significant pressor support Acute Blood Loss Anemia - Hematocrit remains stable. Renal function stable. will continue to monitor. - We have attempted to stop CBI twice however each time active bleeding recurs. Irrigation and urine in catheter bag appears diluted, wine colored. Will stop CBI tomorrow early AM and monitor. Bladder Cancer - Port placement several days ago, he will start chemo this afternoon -He will be discussed at tumor board this Wednesday, Plan is still for surgery following neoadjuvant chemotherapy. Irritation to glans associated with catheter - ordered lidocaine topical jelly 2% to be used up prn Criteria for discharge: I would like him to be up and ambulating fully for at least 24-48 hours prior to discharge with no active bleeding. If those criteria are met then I think he can be discharged home on oral analgesics and oral antibiotics, and will be discharged home with catheter in place. Resuscitation Status: CPR: Attempt Resuscitation Paulina Duran PA-C Jun 22, 2016 12:04
[2016-06-22] MEDS ORDERED: 0.9% Sodium Chloride 500 ML IV ONE (13:00)
[2016-06-22] MEDS ORDERED: Dexamethasone Inj 10 MG in 0.9% Sodium Chloride 50 ML IV ONE (13:15)
[2016-06-22] MEDS ORDERED: Morphine ER 30 mg (MS Contin) Tablet PO ONE (13:25)
[2016-06-22] MEDS ORDERED: METHOTREXATE IV ONE (13:30)
[2016-06-22] MEDS ORDERED: [UNRECOGNIZED DRUG - OTHER] IV ONE (13:30)
[2016-06-22] MEDS: Lidocaine 2% 5 mL Topical Jelly TOPICAL PRN ×2 (13:35→21:05)
--- NOTE | 2016-06-22 15:00 | NUR ---
figure refinisher and repairerbottling supervisor note: Patient is receiving Cycle 1 Day 1 MVAC. Methotrexate infusing at this time and patient is tolerating it well. No complaints voiced. Will follow-up with patient tomorrow when he receives Vinblastine, Cisplatin, and Doxorubicin to see how he is tolerating Cycle 1 Day 2. Will Continue to follow and be available to answer any questions or concerns.
--- NOTE | 2016-06-22 15:00 | NUR ---
CHEMO Patient is on cycle 1 day 1 of DD MVAC (Methotrexate, VinBLAStine, DOXOrubicin, CISplatin) regimen for Bladder, Upper tract, Urothelial CA of the prostate. Consent form for chemo from the Oncology clinic was verified and is in the chart. Parameters WNL: ANC 4,171; PLT-209; CRCL: 179.6 ml/min; Bilirubin: 0.3. Patient was pre-hydrated with NS 500 ml over 30 mins. Premedicated with Dexamethasone 10 mg IV. Portacath has brisk blood draw and flushes without any problems. Methotrexate 30 mg/m2=65 mg/m2 administered via his portacath. Patient tolerated it well. Denies itching, chest pain, nausea/SOB at this time. Will continue to monitor. Addendum: 06/22/16 at 1718 by ATUL MEEKS RN CHEMO Parameters and dosing double checked with Mendy Payne RN.
--- NOTE | 2016-06-22 15:39 | NUR ---
Social Work Note - Continued Discharge Planning: D/A: The Pt is a 51 y/o male that is now on day 12 of admission for bladder mass. The Pt to start chemotherapy today. PT werner completed, recommending SNF. SHANNAN met with the Pt and the Pts spouse to discuss SNF options. The family would like referrals placed to [facility] and [facility] due to location, [employer] contacted for assistance. SHANNAN informed by RN that the Pt could received OtPt chemotherapy at [facility] in [facility]. Pt discussed in rounds, will have two rounds of chemotherapy today and tomorrow and will need two more rounds two weeks from tomorrow and then another two weeks after that in an OtPt setting. SW will continue to follow. P: The Pt is not medically stable for discharge, will need another day of chemotherapy. PT werner completed, preferences for [facility] (1st) and [facility] (2nd). Pt to complete 3rd and 4th course of chemotherapy as an OtPt. SW will continue to follow. ANGEL Escalona Bobbin Painter Addendum: 06/22/16 at 1637 by FANNIE WATT SS SHANNAN has reviewed note. ANGEL Rangel
--- NOTE | 2016-06-22 15:44 | PCM.PALLBR ---
Palliative Care Recommendation Summary of palliative recommendations: 06/22/16 PAIN-goal will be to switch to oral medications. Calculations on his hydromorphone would be morphine 120-138 mg per day. We will begin with MSER 30 mg now to start 60 mg twice a day starting this evening with discontinuation of FINE WIRE DRAWER 1 hour after morphine dose in the evening with when necessary hydromorphone 2-4 mg by mouth every 3 hours when necessary. Adjustments based on symptoms. One hopes with chemotherapy and response of tumor that he is bladder spasms and subsequent pain will decrease. Bladder spasms-much improved. He is not sure that the B&O suppositories are worth the trouble. We will discontinue continue with the oxybutynin. Hematuria-has to be controlled in order to be discharged. Hopefully with chemotherapy being initiated. Anorexia slightly improved. Insomnia-situational and due to pain with increasing bleeding and clots.-We will order trazodone when necessary [place] of symptoms-significant. His is sole breadwinner and also carries the health insurance. Reviewed need for support for her. She identifies very good support through work including the [employer] Services[employer] in their town having lost his to cancer. She works for the [employer]. It would be helpful for his to have some forewarning regarding plans of care should that she can coordinate around work schedule DPOAHC/AD completed per over the w/e and copies in chart. -Symptom management (Pain/other)- PAIN-Associated with bladder spasms. Significantly worse with activity associated with physical therapy. Dr. Curry, his urologist, expects quick results once chemo is initiated and further expects that discomfort associated with the bladder tumor will improve rapidly once therapy initiated. For now, continue hydromorphone FINE WIRE DRAWER initiated by Dr. Romero and also continue antispasmodics- oxybutynin 5 mg tid and B&O supp. prn Plan on continuing FINE WIRE DRAWER through the weekend, and then begin transitioning to oral /outpatient pain regimen after review of his narcotic requirement/usage over the weekend. Discussed with his nurse the need to use bolus pain medicine via FINE WIRE DRAWER prior to attempts at physical therapy. HEMATURIA- decreasing, though expected to continue intermittently until can start chemo. ANOREXIA- suspect will improve a bit with adequate symptom control. As per Dr. Roman Curry- chemo will begin Wednesday by Dr. Phipps. -DPOA/Advanced Directives/POLST- Paperwork for DPOAHC/AD given. He defines his Jessika as first and son Ken as 2nd. His goal is for aggressive management at this and he continues to be FULL CODE with aggressive chemotherapy/surgical therapy for his bladder cancer -Family/emotional support-primarily his who also works multimedia services coordinator and is sole support for income as well as for health care. Reviewed concerns for her support-friends and their son. -Spiritual support-not interested. Additional Medical Diagnoses with primary management by Hospitalist team include : # Acute respiratory failure, # Fever, leukocytosis. Resolved. # Hemorrhagic shock, resolved. Massive transfusion with RBCs, FFP and cryoprecipitate. Secondary to acute blood loss anemia following bladder tumor resection. Required triple pressors. # Severe Acute blood loss anemia, acute. Secondary to hematuria in the setting of bladder tumor resection. Goal Hgb 8. # Bladder carcinoma, new diagnosis. #Type II diabetes mellitus with hyperglycemia. # Obesity, POA. Problems: End of Life Preferences Full code; all aggressive treatment necessary Goals of Care FULL CODE and aggressive treatment at this time Disposition Reviewed consideration for SNF if possible once closer to discharge-- at this point both patient and his agree to SNF when likely to be discharged Resuscitation Status Resuscitation Status: CPR: Attempt Resuscitation POLST Updates/Changes Previous POLST?: No POLST Discussed with: Patient . Advanced Care Planning Address: Durable Power of Music Engraver Pain: Moderate Symptom management: Drowsiness/sleepiness (poor sleep last night due to recurrent blood clots), Pain Total time 50 minutes; >50% face to face with patient and/or family, providing counselling regarding plans and recommendations, and in care coordination with his/her medical teams. Including discussion of plan of care with patient again with his and med management regarding pain. I also spent an additional [ ] minutes counseling for advanced care planning with the patient/the patients family/the surrogate decision maker. copies to: Pat Phipps MD; Claudio Molina MD Palliative Brief Note Date of Service Jun 22, 2016 . 51 yo male with newly diagnosed high grade urothelial carcinoma complicated with massive hemorrhage, shock and associated respiratory failure requiring short term intubation for management. He has been stable except for ongoing pain, generalized weakness and continued hematuria with intermittent clots and now balanitis. His CT scan raised question of metastatic lymphadenopathy in abd and up to subcarinal area. He has been started on chemo infusion -to last 2 days. He is impressed with how weak he feels getting up to stand. He does have SOB with probable residual pneumonia at his bases. O: up in chair, thakkar in place with mod diluted bloody urine Looks exhausted. Able to move himself around in chair or bed drinking ensure 1+ pitting edema WBC 7.9 Hgb 8.6, CR 0.54 Ethel Romero MD Jun 22, 2016 15:44
[2016-06-22] MEDS: Ondansetron 2 mg/mL 2 mL Inj IVPUSH PRN (15:51)
--- NOTE | 2016-06-22 19:05 | NUR ---
ACTIVITY/ Morphine ER PO started. Patient will be transitioned to PO meds and OYSTER CULTIVATOR will be d/cd this evening. Patient is agreeable to this. Lidocaine and Calmoseptine placed over his penis/IFC cath site. No pain at this time. Patient complained of nausea this afternoon. No emesis noted. PO2 on room air in the low to mid 90's. On O2 at 2 LPM via NC at HS. Denies SOB. Patient was able to transfer from the bed to the chair and vice versa. Tolerated activity fairly. CBI ongoing. [place] tinged UO noted. No clots noted. Addendum: 06/22/16 at 1918 by ATUL MEEKS RN GI No BM for several days. Miralax order received and administered. No BM at this time.
[2016-06-22] MEDS ORDERED: MORPHINE 60 MG PO SCH (20:30)
[2016-06-22] MEDS: Morphine ER 30 mg (MS Contin) Tablet PO SCH (21:00)
[2016-06-23] MEDS ORDERED: 0.9% Sodium Chloride 100 ML ONE (05:31)
--- NOTE | 2016-06-23 05:42 | NUR ---
Pain/CBI Pt was transitioned to Morphine ER 60 mg BID, an hour later GOODWILL REPRESENTATIVE turned off and DC'd. Pt did have episode of pain up to 8 and took 2mg PO dilaudid which seemed to decrease pain. Lidocaine and calmoseptine applied to meatus/thakkar to decrease local pain as well. Pt has not requested more pain meds and reports "feeling better." CBI continues and rate has been decreased, pink tinged urine. Labs obtained through port this morning, brisk blood return. Pt has denied nausea all shift.
[2016-06-23 06:12] LABS: BASOPHILS % (AUTO) 0.3 % (0-3); EOSINOPHILS % (AUTO) 0.1 % (0-5); Mean Corpuscular Hemoglobin 29.2 pg (27.0-35.0); NEUTROPHILS % (AUTO) 83.7 % (40-74); Platelet Count 201 bil/L (150-400)
[2016-06-23 06:48] VITALS: BP 132/81; PULSE 85; RESP 17; O2SAT 96
[2016-06-23] MEDS: HYDROmorphone 1 mg/mL Inj IVPUSH PRN ×4 (08:32→19:20)
[2016-06-23] MEDS: Senna-Docusate 8.6-50 mg Tablet PO SCH ×2 (09:32→20:23)
[2016-06-23] MEDS: Morphine ER 30 mg (MS Contin) Tablet PO SCH ×2 (09:33→20:23)
[2016-06-23] MEDS: Furosemide 10 mg/mL 2 mL Inj IV SCH (09:33)
[2016-06-23] MEDS: Insulin LISPRO 300 Unit/3 mL Inj SUBQ SCH ×4 (09:51→22:19)
[2016-06-23] MEDS ORDERED: 0.9% Sodium Chloride 500 ML IV ONE ×2 (11:00→13:15)
[2016-06-23] MEDS ORDERED: SODIUM CHLORIDE IV ONE ×2 (11:10)
[2016-06-23] MEDS ORDERED: FOSAPREPITANT IV ONE ×2 (11:10)
[2016-06-23] MEDS ORDERED: Dexamethasone Inj 10 MG in 0.9% Sodium Chloride 50 ML IV ONE ×4 (11:15)
[2016-06-23] MEDS ORDERED: Palonosetron 0.05 mg/mL 5 mL Inj IV ONE (11:15)
--- NOTE | 2016-06-23 11:20 | NUR ---
Social Work Note - Continued Discharge Planning: D/A: The Pt is a 51 y/o male that is now on day 13 of admission for bladder mass. Pt discussed in rounds, Pt likely to discharge on to SNF. Family is requesting SNF referrals be placed to [facility] and [facility], SW requested assistance with Fitness Assistant Dinorah. SHANNAN t/c to [facility] and [facility], informed SW to contact [facility]'s RN x [phone]. Voicemail left. SW to follow up with RN regarding the Pt's upcoming chemotherapy needs in two and four weeks. SW will continue to follow. P: Pt is not ready for discharge, likely to discharge to SNF on pending acceptance. [facility]. SW waiting for call from [facility] RN regarding upcoming chemotherapy needs. SW will continue to follow. ANGEL Escalona Box Car Checker Addendum: 06/23/16 at 1412 by FANNIE WATT SS SHANNAN has reviewed senior internal auditor note. ANGEL Rangel
[2016-06-23] MEDS ORDERED: VINBLASTINE IV ONE (11:30)
--- NOTE | 2016-06-23 11:38 | PCM.PNMED ---
Subjective Date of Service Jun 23, 2016 Subjective Pt states his pain seems to be fairly controlled at this time. He had to go back on CBI last night. Pt tolerated chemotherapy well yesterday. He has still not been able to ambulate much. He has no complaints at this time. Exam Vital Signs Vital Sign - Last Date Time Temp Pulse Resp B/P Pulse Ox O2 Delivery O2 Flow Rate FiO2 06/23/16 06:48 36.4 85 17 132/81 96 Nasal Cannula 2.00 Intake and Output 06/22/16 06/22/16 06/23/16 Cumulative From/Thru 15:00 23:00 07:00 06/10/16 00:53 - 06/23/16 06:46 Intake Total 1866 ml 986 ml 38359 ml Output Total 1940 ml 300 ml 82963 ml Balance -74 ml 686 ml -86730 ml Intake Oral 1320 ml 800 ml 91448 ml IV Total 546 ml 186 ml 74807 ml Tube Feeding 384 ml Autotransfusion 2400 ml Packed Cells 1325 ml FFP 400 ml Tube Irrigant 145 ml Output Urine Total 1940 ml 300 ml 04375 ml Gastric Drainage Total 250 ml Estimated Blood Loss 303 ml # Bowel Movements 0 0 Exam GENERAL: NAD, Pt laying in bed comfortably HEENT: AT/NC, PERRLA, EOMI, Mucus Membranes are moist CARDIAC: RRR; No M/R/G PULM: CTAB; No wheezes or rhonchi bilaterally ABD: Soft, Nontender, Nondistended, Positive bowel sounds in all quadrants, No Hepatosplenomegaly appreciated NEURO: Alert and oriented x3; Following all commands PSYCH: Normal mood and affect IVs and Medications Medications Reviewed: Medications were reviewed in detail Lab and Diagnostics Result Diagram: 06/23/16 0500 06/23/16 0525 Microbiology MRSA negative X-Rays, CTs and MRIs PROCEDURE: X-RAY CHEST ONE VIEW, PORTABLE ([id number]) IMPRESSION: 1. Markedly rotated patient. Central venous catheter is projected over the expected region of the SVC. However, repeat study without rotation is recommended. Dictated by: Lois Watt M.D. on 06/10/2016 at 21:07 PROCEDURE: X-RAY CHEST ONE VIEW, PORTABLE ([id number]) IMPRESSION: Bibasilar atelectasis versus aspiration or pneumonia. Correlate clinically. Dictated by: Victorino RADER Interpreted: Lizzy Mays MD on 06/12/2016 at 9:41 . Additional Diagnostics PROCEDURE: EMBOLIZATION OF BLEED IMPRESSION: 1. Status post coil embolization of the right internal iliac artery. Please note , despite the lack of active extravasation visualized on the study, the decision was made to embolize the right internal iliac artery as the patients clinical status suggested continued, occult arterial hemorrhage. Dictated by: Lois Watt M.D. on 06/11/2016 at 13:20 . Assessment & Plan 1. Acute Respiratory Failure, Hypoxemic - Secondary to Hemorrhagic Shock - Resolved - Pt was initially intubated for airway protection 2. Fever with Leukocytosis - Resolved - Source unclear but may be related to Aspiration - Pt completed a total of 10 days of IV Zosyn, and this was stopped on 06/22/2016 - Pt remains afebrile and his WBC count remains normal - Procalcitonin is negative 3. Hemorrhagic Shock - Resolved - Secondary to massive bleed post bladder tumor resection - Pt is status post massive PRBC transfusion and pt at one time required significant pressor support 4. Acute Blood Loss Anemia - See above - Continue to monitor H/H - H/H is stable at this time 5. Bladder Cancer - Oncology on board - Pt started chemotherapy on 06/22/2016, and this is to continue today - He will eventually need to have his bladder removed once chemotherapy completed - Dilaudid TELEX OPERATOR discontinued, and pt is now on MS Contin and PO Dilaudid PRN for pain relief - Continue CBI for pts blood clots per Urology 6. Diabetes Mellitus, Type II - Continue SSI - Continue checking FSBS q AC and HS - Carbohydrate controlled diet 7. Generalized Weakness - Pt to ambulate as much as possible today - Will continue to have PT work with patient - Anticipate discharge to SNF on GI Prophylaxis: H2 leanna VTE Mechanical Devices: Intermittant Pneumatic CD Resuscitation Status: CPR: Attempt Resuscitation Terry Hui MD Jun 23, 2016 11:38
[2016-06-23] MEDS ORDERED: DOXORUBICIN IV ONE (11:45)
[2016-06-23] MEDS ORDERED: MANNITOL IV ONE ×5 (12:15)
[2016-06-23] MEDS ORDERED: CISPLATIN IV ONE ×5 (12:15)
[2016-06-23] MEDS ORDERED: [UNRECOGNIZED DRUG - OTHER] IV ONE ×5 (12:15)
--- NOTE | 2016-06-23 12:27 | NUR ---
shovel log loader operatornozzle and sleeve worker note: Patient is on cycle 1 Day 2 of MVAC chemo Regimen. Pre-meds are being infused when I came to see how patient is doing. Patient states he is doing fine and had no side effects noted from Methotrexate given yesterday. No care needs identified at this time. Will Follow-up with patient tomorrow.
--- NOTE | 2016-06-23 13:20 | NUR ---
NUTRITION FOLLOW-UP: ASSESS: 51 YO M admitted to CCU for bladder mass and post-op respiratory distress requiring intubation. Pt was extubated 06/13. Pt had a port placed 06/17 in preparation for chemotherapy which was started 06/22. Pt diet has been advanced to heart healthy, diabetic with pt eating 25-100% of meals. Pt reported that he likes the Glucerna supplement shakes. Pt continues to be constipated with no BM reported x 13 days. PMHX: HLD, DM. LABS: Reviewed. MEDS: Reviewed. Senna, Miralax. GI: No BM noted x 13 days. WT: 143.0 kg. IBW 80.9 kg. Admit weight: 134.6 kg. DIET: Heart Healthy, Diabetic, Glucerna all trays. PO 25-100% of meals. ESTIMATED NEEDS: BMI (based off admit wt) Calories: 3368-7579 kcal/day (20-22 kcal/kg BW) Protein: 95-120 g/day (1.2-1.5 g/kg IBW) NUTRITION DIAGNOSIS: 1) Inadequate oral intake related to decreased ability to consume sufficient energy as evidenced by current NPO/vent status ----IMPROVING, PO intake 25-100% of meals. NUTRITION INTERVENTION: 1.) Continue to send Glucerna on all trays. MONITOR/EVALUATE: PO intake, weight, GI/BM, labs, nutrition status. Follow per moderate nutrition risk guidelines
[2016-06-23 13:51] VITALS: BP 115/71; PULSE 84; O2SAT 98
[2016-06-23 15:04] VITALS: BP 108/70; PULSE 83; RESP 20; O2SAT 97
--- NOTE | 2016-06-23 15:14 | NUR ---
Ambulate w/Nsg Pt is released and encouraged to ambulate w/nsg 2-3x/day as tolerated. PT will cont to see 2x/week for progression of bed mobility.
--- NOTE | 2016-06-23 15:18 | NUR ---
Faxed referral to [facility] and [facility] per NON CLINICAL ADVISOR
[2016-06-23] MEDS: 0.9% Sodium Chloride 250 ML IV SCH (17:12)
[2016-06-23] MEDS ORDERED: Sodium Chloride LOK Flush 10 mL Syringe IVFLUSH PRN ×2 (17:15)
[2016-06-23] MEDS ORDERED: HepLOK Flush 100 unit/mL 5 mL Inj IVFLUSH PRN (17:15)
--- NOTE | 2016-06-23 17:23 | NUR ---
Pain/chemo Patient with pain to penis/pelvic area rated from 2-9/10 at times. Patient given dilaude ivp to get pain quickly under control and patient was writhing with intermittent spasm like pain. Patient medicated frequently to control pain and lidocaine topical place around meatus . Pt up to hallway ambulate today was able to do half loop after pain decreased. Patient is sitting up in chair at this time. Patient given pre meds and hydration prior to start of chemo. Patient had Vinblastine 3 mg/m2 =7 mg over few minutes , followed by Doxorubicin 30 mg/m2 =65 mg given and then Cisplatin 70 mg/m2 =150 mg and tolerated all without any immediate adverse reactions. patient has brisk blood return when sarah cath checked x 2 during infusion. Vitals taken and charted. Addendum: 06/23/16 at 1736 by MAGO FRIAS RN Information Prior to chemo administration, side effects and medications discussed and written info given to patient. Patient asked if any further questions and declined any at this time. Patient aware of to report any adverse symptoms that might occur or if he had any questions arise.
--- NOTE | 2016-06-23 18:25 | PCM.PALLBR ---
Palliative Care Recommendation Summary of palliative recommendations: 06/23/16-PAIN- will schedule hydromorphone at 2 mg Q 6 hour. He can have addnal for BTP. May need bump in MS Contin but optimistic with control of blding with chemo-- hopefully decrease in pain. He remains on oxybutynin. With his ambulation today- most likely will be able to go home when thakkar comes out. I can see him in follow up for pain management until chemo takes effect and can start to taper. 06/22/16 PAIN-goal will be to switch to oral medications. Calculations on his hydromorphone would be morphine 120-138 mg per day. We will begin with MSER 30 mg now to start 60 mg twice a day starting this evening with discontinuation of JUICE STANDARDIZER 1 hour after morphine dose in the evening with when necessary hydromorphone 2-4 mg by mouth every 3 hours when necessary. Adjustments based on symptoms. One hopes with chemotherapy and response of tumor that he is bladder spasms and subsequent pain will decrease. Bladder spasms-much improved. He is not sure that the B&O suppositories are worth the trouble. We will discontinue continue with the oxybutynin. Hematuria-has to be controlled in order to be discharged. Hopefully with chemotherapy being initiated. Anorexia slightly improved. Insomnia-situational and due to pain with increasing bleeding and clots.-We will order trazodone when necessary [place] of symptoms-significant. His is sole breadwinner and also carries the health insurance. Reviewed need for support for her. She identifies very good support through work including the mayor in their town having lost his to cancer. She works for the [employer]. It would be helpful for his to have some forewarning regarding plans of care should that she can coordinate around work schedule DPOAHC/AD completed per over the w/e and copies in chart. -Symptom management (Pain/other)- PAIN-Associated with bladder spasms. Significantly worse with activity associated with physical therapy. Dr. Curry, his urologist, expects quick results once chemo is initiated and further expects that discomfort associated with the bladder tumor will improve rapidly once therapy initiated. For now, continue hydromorphone JUICE STANDARDIZER initiated by Dr. Romero and also continue antispasmodics- oxybutynin 5 mg tid and B&O supp. prn Plan on continuing JUICE STANDARDIZER through the weekend, and then begin transitioning to oral /outpatient pain regimen after review of his narcotic requirement/usage over the weekend. Discussed with his nurse the need to use bolus pain medicine via JUICE STANDARDIZER prior to attempts at physical therapy. HEMATURIA- decreasing, though expected to continue intermittently until can start chemo. ANOREXIA- suspect will improve a bit with adequate symptom control. As per Dr. Roman Curry- chemo will begin Wednesday by Dr. Phipps. -DPOA/Advanced Directives/POLST- Paperwork for DPOAHC/AD given. He defines his Jessika as first and son Ken as 2nd. His goal is for aggressive management at this and he continues to be FULL CODE with aggressive chemotherapy/surgical therapy for his bladder cancer -Family/emotional support-primarily his who also works multimedia producer and is sole support for income as well as for health care. Reviewed concerns for her support-friends and their son. -Spiritual support-not interested. Additional Medical Diagnoses with primary management by Hospitalist team include : # Acute respiratory failure, # Fever, leukocytosis. Resolved. # Hemorrhagic shock, resolved. Massive transfusion with RBCs, FFP and cryoprecipitate. Secondary to acute blood loss anemia following bladder tumor resection. Required triple pressors. # Severe Acute blood loss anemia, acute. Secondary to hematuria in the setting of bladder tumor resection. Goal Hgb 8. # Bladder carcinoma, new diagnosis. #Type II diabetes mellitus with hyperglycemia. # Obesity, POA. Problems: End of Life Preferences Full code; all aggressive treatment necessary Goals of Care FULL CODE and aggressive treatment at this time Disposition Reviewed consideration for SNF if possible once closer to discharge-- at this point both patient and his agree to SNF when likely to be discharged Resuscitation Status Resuscitation Status: CPR: Attempt Resuscitation POLST Updates/Changes Previous POLST?: No POLST Discussed with: Patient . Pain: Moderate Symptom management: Pain Total time 35 minutes; >50% face to face with patient and/or family, providing counselling regarding plans and recommendations, and in care coordination with his/her medical teams. I also spent an additional [ ] minutes counseling for advanced care planning with the patient/the patients family/the surrogate decision maker. copies to: Fausto Salvador MD Palliative Brief Note Date of Service Jun 23, 2016 . 51 with aggressive urothelial carcinoma now completing his 2nd day of chemo. Narcotics changed from JUICE STANDARDIZER to oral with partial success-he is reluctant to ask for PRN and definitely have BTP O: UP IN ROSS!! with assist for his IV and thakkar irrigant good spirits occ spasms but way less Hbg stable and urine is now fairly clear. Ehtel Romero MD Jun 23, 2016 18:25
[2016-06-23 19:35] VITALS: BP 146/89; PULSE 87; RESP 18
[2016-06-23] MEDS: LORazepam 1 mg Tablet PO PRN (20:23)
--- NOTE | 2016-06-23 22:48 | PROG NOTE ---
[address] [address] PROGRESS NOTE PATIENT: DIANA CROWELL : 1965 MR#: [id number] ADMIT: 06/10/2016 JOB ID: [id number] DATE: 06/23/2016 SUBJECTIVE: His pain appears to be under control. He appears very comfortable tonight. There was again passage of some blood clots with pain the day before yesterday, and his continuous bladder irrigation has been resumed. His dyspnea has overall improved. OBJECTIVE: He appears very comfortable. Awake, alert, oriented x3. Vital signs are all normal. O2 saturation high 90s on 3 L. LABS: Other than severe anemia and low albumin, the rest of his labs are normal. IMAGING PROCEDURE: CT scan on June 17 showed mottled bilateral pleural effusions, a borderline enlarged 13 mm subcarinal lymph node, and some indeterminate abdominal and retroperitoneal lymph nodes, including a peripancreatic lymph node measuring 15 mm in short axis, and multiple subcentimeter lymph nodes in periaortic and aortocaval regions. There was no hydronephrosis. The bladder mass was redemonstrated, heterogeneously enhancing, with air in the bladder from catheter. There was no pelvic lymphadenopathy. IMPRESSION AND PLAN: The patient received first cycle of dose-dense MVAC yesterday and today. We discussed expected side effects that will most likely happen later this week. This patient already has a degree of diabetic neuropathy in his lower extremities, and we discussed that cisplatin and vinblastine can worsen neuropathy. We also discussed potential rare side effects including nephrotoxicity and O2 toxicity from cisplatin. We also discussed that his CT scan showed some indeterminate borderline enlarged lymph nodes in the abdominal and retroperitoneal areas, and they could potentially represent metastatic disease. We discussed our plan of neoadjuvant chemotherapy for 3-4 cycles followed by radical cystoprostatectomy plus bilateral pelvic lymph node dissection. He is on board with this plan. He will need to start daily G-CSF 480 mcg subcutaneously x10 days starting on . I will work on his prescription tomorrow. From oncology point of view, the patient is ready for discharge on . The plan is to discharge home with Weathers catheter in place, and he will need close followup with Urology as well as with myself which I will set up for him and will inform him of his appointment tomorrow.
[2016-06-24] MEDS: HYDROmorphone 1 mg/mL Inj IVPUSH PRN (01:45)
[2016-06-24] MEDS: Lidocaine Topical 2% 30 mL Jelly TOPICAL PRN ×2 (01:45→16:50)
--- NOTE | 2016-06-24 02:13 | NUR ---
UOP Weathers draining watermelon colored urine with some sediment noted. irrigant running at a slow rate.True UOP qs.VSS.Pain controlled with po analgesia and IVP dilaudid.Appetite improving and beverly. po fluids qs.Sleeping intermittently and resting comfortably at this time,Will cont. to monitor.
[2016-06-24] MEDS: LORazepam 1 mg Tablet PO PRN ×2 (04:24→20:15)
[2016-06-24 05:43] LABS: BASOPHILS % (AUTO) 0.1 % (0-3); EOSINOPHILS % (AUTO) 0 % (0-5); MONOCYTES % (AUTO) 4.5 % (4-12); Mean Corpuscular Hemoglobin 29.2 pg (27.0-35.0); Mean Corpuscular Volume 88.7 fL (81-100); NEUTROPHILS % (AUTO) 85.4 % (40-74); Platelet Count 178 bil/L (150-400)
[2016-06-24 06:34] VITALS: BP 143/77; PULSE 74; RESP 17; O2SAT 99
[2016-06-24] MEDS: Morphine ER 30 mg (MS Contin) Tablet PO SCH ×2 (08:42→20:16)
[2016-06-24] MEDS: Senna-Docusate 8.6-50 mg Tablet PO SCH ×2 (08:42→20:15)
[2016-06-24] MEDS: Furosemide 10 mg/mL 2 mL Inj IV SCH (08:42)
[2016-06-24] MEDS: Insulin LISPRO 300 Unit/3 mL Inj SUBQ SCH ×4 (08:44→22:21)
--- NOTE | 2016-06-24 09:27 | NUR ---
Pain management Pt required two doses of IV Dilaudid to supplement breakthrough pain overnight. MS Contin 60mg BID and 2mg PO Dilaudid started yesterday has been moderately effective for keeping pain manageable. Education provided on pain management and need to let nursing know when pain initially started to increase so PO Dilaudid could be administered. Pt is understanding of this plan and last two instances of breakthrough pain were adequately managed with 4mg PO Dilaudid. Dr. Hernandez made aware of this and is reviewing dosing to adjust long acting medications so we can hopefully eliminate IV needs. Pt agreeable. Will continue to monitor closely.
--- NOTE | 2016-06-24 09:34 | PCM.PALLBR ---
Palliative Care Recommendation Summary of palliative recommendations: 06/24/16-PAIN- Continue these meds for pain on discharge: 1. Scheduled hydromorphone at 2 mg po Q 6 hour. He can have 2-4mg po q 3 hours for BTP. 2. MSER 60mg po BID scheduled as long-acting pain medicine. Adjustments based on symptoms. May need bump in MS Contin but optimistic with control of bleeding with chemo--hopefully decrease in pain. He remains on oxybutynin. Hopefully, with chemotherapy and response of tumor that he is bladder spasms and subsequent pain will decrease. With his ambulation observed on 06/23- most likely will be able to go home when thakkar comes out. This may be as soon as 06/25 (per discussion in discharge rounds). Dr. Ethel Romero can see him in follow up in the Palliative Care Outpatient clinic for pain management until chemo takes effect and can help with tapering down pain meds. Hematuria-has to be controlled in order to be discharged. Hopefully with chemotherapy being initiated. Anorexia: 06/24 today he reports no improvement. Insomnia-situational and due to pain with increasing bleeding and clots.- Continue trazodone as prn med on discharge. [place] of symptoms-significant. His is sole breadwinner and also carries the health insurance. Reviewed need for support for her. She identifies very good support through work including the mayor in their town having lost his to cancer. She works for the [employer]. It would be helpful for his to have some forewarning regarding plans of care should that she can coordinate around work schedule POLST/DPOA/AD completed per over the w/e and copies in chart. DPOA: His Jessika is first and his son Ken is 2nd HCPOA. His goal is for aggressive management at this and he continues to be FULL CODE with aggressive chemotherapy/surgical therapy for his bladder cancer -Spiritual support-not interested. Problems: End of Life Preferences Full code; all aggressive treatment necessary Goals of Care FULL CODE and aggressive treatment at this time Disposition Reviewed consideration for SNF if possible once closer to discharge-- at this point both patient and his agree to SNF when likely to be discharged Resuscitation Status Resuscitation Status: CPR: Attempt Resuscitation POLST Updates/Changes Previous POLST?: No POLST Discussed with: Patient Total time 35 minutes; >50% face to face with patient and/or family, providing counselling regarding plans and recommendations, and in care coordination with his/her medical teams. Palliative Brief Note Date of Service Jun 24, 2016 . 51 yo WMM with aggressive urothelial carcinoma now completing his 3nd day of chemo. 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 He tends to forget to ask for oral pain pills as soon as he has pain and waits until it is moderately bad, which leads to IV med use. He is counseled on this overnight by night nurse , this morning by day nurse and Dr. Garcia on morning rounds. Alexis says he is disappointed that he is so tired today, and that food has not been tasting good , even though he has been eating regular food since last Wednesday. He is worried about this. He also reports that Dr. Phipps had told him, "something new" had come up in his recent labs, and Alexis is concerned about what this means for his cancer management plan. He tries to remind himself that this is " a marathon, not a sprint," and he can't expect to feel well right away, but all these things worry him. He reports pain 2-3/10 that is "tolerable" but not something he would be able to sleep through at night. Dr. Garcia recommended some changes to increase his dose of either long-acting morphine sulfate or short acting oral dilaudid, but Alexis demurred, saying that he wants to wait a day until "things stabilize." Dr. Garcia said she would return in afternoon to check on his pain and ask if he is willing to change doses then, depending on how the morning goes for him. He agreed. O: up in mao yesterday, quite tired by this and wants to just sit in chair this morning. reports occasional bladder spasms, but not as bad as previously Hbg stable (25 x 3 days) and urine is now fairly clear. Princess Garcia MD Jun 24, 2016 09:34
--- NOTE | 2016-06-24 10:19 | NUR ---
Social Work Note - Readiness for Discharge: D/A: The Pt is a 51 y/o male that is now on day 13 for bladder mass. PT eval completed, recommending home with HH or OtPt PT. HH explored with Pt, HH list provided. Pt would like to discuss options with his spouse prior to making a decision. SW to follow. P: Pt likely to discharge home tomorrow via POV transportation. PT eval completed, recommending HH vs OtPt. HH list provided, SW to follow regarding decision. ANGEL Escalona [employer] Addendum: 06/24/16 at 1317 by FANNIE WATT [facility] [employer] note has been reviewed. ANGEL Rangle
--- NOTE | 2016-06-24 12:32 | PCM.PNMED ---
Subjective Date of Service Jun 24, 2016 Subjective Pt states he is not feeling so well today. He states he is feeling weak and mildly nauseated. He again started passing large blood clots through his thakkar catheter last night and had to have his CBI restarted. Pt has no other complaints or concerns at this time. Exam Vital Signs Vital Sign - Last Date Time Temp Pulse Resp B/P Pulse Ox O2 Delivery O2 Flow Rate FiO2 06/24/16 08:56 Supplement Oxygen 06/24/16 06:34 36.4 74 17 143/77 99 3.00 Intake and Output 06/23/16 06/23/16 06/24/16 Cumulative From/Thru 15:00 23:00 07:00 06/10/16 00:53 - 06/24/16 06:33 Intake Total 1080 ml 1398 ml 13383 ml Output Total 2700 ml 600 ml 50614 ml Balance -1620 ml 798 ml -66313 ml Intake Oral 1080 ml 1280 ml 48551 ml IV Total 118 ml 22466 ml Tube Feeding 384 ml Autotransfusion 2400 ml Packed Cells 1325 ml FFP 400 ml Tube Irrigant 145 ml Output Urine Total 2700 ml 600 ml 36717 ml Gastric Drainage Total 250 ml Estimated Blood Loss 303 ml # Bowel Movements 0 0 Exam GENERAL: NAD, Pt laying in bed comfortably HEENT: AT/NC, PERRLA, EOMI, Mucus Membranes are moist CARDIAC: RRR; No M/R/G PULM: CTAB; No wheezes or rhonchi bilaterally ABD: Soft, Nontender, Nondistended, Positive bowel sounds in all quadrants, No Hepatosplenomegaly appreciated NEURO: Alert and oriented x3; Following all commands PSYCH: Normal mood and affect IVs and Medications Medications Reviewed: Medications were reviewed in detail Lab and Diagnostics Result Diagram: 06/24/1630 06/24/16 0530 Microbiology MRSA negative X-Rays, CTs and MRIs PROCEDURE: X-RAY CHEST ONE VIEW, PORTABLE ([id number]) IMPRESSION: 1. Markedly rotated patient. Central venous catheter is projected over the expected region of the SVC. However, repeat study without rotation is recommended. Dictated by: Lois Watt M.D. on 06/10/2016 at 21:07 PROCEDURE: X-RAY CHEST ONE VIEW, PORTABLE ([id number]) IMPRESSION: Bibasilar atelectasis versus aspiration or pneumonia. Correlate clinically. Dictated by: Victorino Long RRA Interpreted: Lizzy Mays MD on 06/12/2016 at 9:41 . Additional Diagnostics PROCEDURE: EMBOLIZATION OF BLEED IMPRESSION: 1. Status post coil embolization of the right internal iliac artery. Please note , despite the lack of active extravasation visualized on the study, the decision was made to embolize the right internal iliac artery as the patients clinical status suggested continued, occult arterial hemorrhage. Dictated by: Lois Watt M.D. on 06/11/2016 at 13:20 . Assessment & Plan 1. Acute Respiratory Failure, Hypoxemic - Secondary to Hemorrhagic Shock - Resolved - Pt was initially intubated for airway protection 2. Fever with Leukocytosis - Resolved - Source unclear but may be related to Aspiration - Pt completed a total of 10 days of IV Zosyn, and this was stopped on 06/22/2016 - Pt remains afebrile and his WBC count remains normal - Procalcitonin is negative 3. Hemorrhagic Shock - Resolved - Secondary to massive bleed post bladder tumor resection - Pt is status post massive PRBC transfusion and pt at one time required significant pressor support 4. Acute Blood Loss Anemia - See above - Continue to monitor H/H - H/H is stable at this time 5. Bladder Cancer - Oncology on board - Pt started chemotherapy on 06/22/2016 - He will eventually need to have his bladder removed once chemotherapy completed - Pt was initially on Dilaudid BAG LOADER however this has been discontinued, a - Continue MS Contin and PO Dilaudid PRN for pain relief - Continue CBI for pts blood clots per Urology 6. Diabetes Mellitus, Type II - Continue SSI - Continue checking FSBS q AC and HS - Carbohydrate controlled diet 7. Generalized Weakness - Pt to ambulate as much as possible today - Will continue to have PT work with patient - Anticipate discharge to SNF on GI Prophylaxis: H2 leanna VTE Mechanical Devices: Intermittant Pneumatic CD Resuscitation Status: CPR: Attempt Resuscitation Terry Hui MD Jun 24, 2016 12:32
[2016-06-24 13:36] VITALS: BP 114/70; PULSE 80; RESP 18; O2SAT 98
--- NOTE | 2016-06-24 14:37 | NUR ---
nurse behavioral health carereceiving barn custodian note: Cycle 1 MVAC completed. Patient states he has a little nausea. Encouraged patient to ask for anti-nausea medication so his nausea does not get out of control. Patient states he feels a little tired today. Encouraged patient to take it easy and pace his activities. No other c/o voiced. Dr. Phipps will be coming over with his schedule this afternoon. Will continue to follow as the need arises.
[2016-06-24] MEDS: 0.9% Sodium Chloride 250 ML IV SCH (17:37)
[2016-06-24 19:45] VITALS: BP 120/74; PULSE 82; RESP 17; O2SAT 98
[2016-06-24] MEDS ORDERED: HYDROmorphone 2 mg/mL Inj IVPUSH PRN (20:15)
[2016-06-24] MEDS ORDERED: HYDROmorphone 1 mg/mL Inj ONE ×2 (22:14)
[2016-06-24] MEDS ORDERED: HYDROmorphone 1 mg/mL Inj IVPUSH PRN (22:24)
--- NOTE | 2016-06-25 01:42 | NUR ---
Pain Pain controlled with po analgesia however pt. has mod.-severe spasm like pain at times requiring IVP dilaudid.Spoke with MD at start of shift regarding this and med. reordered.At approx. 2200 pt. c/o 9/10 pain level and IVP dilaudid adm. and eff.VSS.I&O qs.Urine pink tinged with some sediment noted yet no clots thus far. irrigant running at a very slow rate.Sleeping soundly at this time and resting comfortably.Will cont. to monitor.
--- NOTE | 2016-06-25 01:49 | PROG NOTE ---
[address] [address] PROGRESS NOTE PATIENT: DIANA CROWELL : 1965 MR#: [id number] ADMIT: 06/10/2016 JOB ID: [id number] DATE: 06/24/2016 INPATIENT MEDICAL ONCOLOGY PROGRESS REPORT: DIAGNOSIS: Large muscle invasive bladder urothelial carcinoma associated with persistent hematuria. SUBJECTIVE: Today, the patient feels more tired due to recent chemotherapy. He denies any nausea. The pain in pelvic area is intermittent, and at times is sudden, severe and spasmodic. This could happen if he stands up. In supine position most of the time he is pain free. OBJECTIVE: Appears tired, but awake, alert and oriented x3, and is very optimistic. Blood pressure 120/74, heart rate 82, temperature 36.4. Continuous bladder irrigation is being performed. LABORATORIES: Reviewed. Anemia is unchanged. Renal function remains normal. IMPRESSION AND PLAN: This patient has completed first cycle of dose-dense MVAC chemotherapy. The plan is to discharge home tomorrow with Weathers catheter. We processed his outpatient prescription for G-CSF, and as soon as it is authorized and received, he will start daily injections at home. We discussed his case in Tumor Board this morning and reviewed his CT scan. I think the borderline enlarged abdominal lymph nodes, the largest of which appears to be 1.5 cm in peripancreatic regions, are most likely reactive. His clinical stage is T2 N0. Our plan is neoadjuvant dose-dense MVAC, followed by radical cystoprostatectomy and bilateral pelvic lymphadenectomy. I will set up his followup appointments in Oncology Clinic. Oncology will sign off at this point.
[2016-06-25 05:59] LABS: BASOPHILS % (AUTO) 0.5 % (0-3); EOSINOPHILS % (AUTO) 1.2 % (0-5); MONOCYTES % (AUTO) 3.4 % (4-12); Mean Corpuscular Hemoglobin 29.2 pg (27.0-35.0); Mean Corpuscular Volume 88.9 fL (81-100); NEUTROPHILS % (AUTO) 67.5 % (40-74); Platelet Count 173 bil/L (150-400)
[2016-06-25 06:48] VITALS: BP 133/86; PULSE 80; RESP 17; O2SAT 99
[2016-06-25] MEDS: Insulin LISPRO 300 Unit/3 mL Inj SUBQ SCH ×4 (08:00→22:00)
[2016-06-25] MEDS ORDERED: Methylnaltrexone 12 mg/0.6 mL Inj SUBQ ONE (08:30)
[2016-06-25] MEDS: Senna-Docusate 8.6-50 mg Tablet PO SCH ×3 (08:30→20:45)
[2016-06-25] MEDS: Morphine ER 30 mg (MS Contin) Tablet PO SCH ×3 (08:33→22:16)
[2016-06-25] MEDS: Furosemide 10 mg/mL 2 mL Inj IV SCH (08:34)
[2016-06-25] MEDS: Lidocaine Topical 2% 30 mL Jelly TOPICAL PRN ×2 (09:07→20:46)
[2016-06-25 09:55] VITALS: BP 114/74; PULSE 82; RESP 17; O2SAT 97
--- NOTE | 2016-06-25 11:31 | PCM.PNMED ---
Subjective Date of Service Jun 25, 2016 Subjective Pt doing okay this morning. He continues to pass wine colored urine into his thakkar bag overnight. He again is requiring CBI secondary to large blood clots from his bladder last night. He states his pain is well controlled at present. He is having bowel movements now. No other complaints or concerns at this time. Exam Vital Signs Vital Sign - Last Date Time Temp Pulse Resp B/P Pulse Ox O2 Delivery O2 Flow Rate FiO2 06/25/16 09:55 36.7 82 17 114/74 97 Nasal Cannula 3.00 Intake and Output 06/24/16 06/24/16 06/25/16 Cumulative From/Thru 14:59 22:59 06:59 06/10/16 00:53 - 06/25/16 06:46 Intake Total 1474 ml 1317 ml 08540 ml Output Total 1150 ml 500 ml 52162 ml Balance 324 ml 817 ml -39631 ml Intake Oral 1356 ml 1200 ml 87413 ml IV Total 118 ml 117 ml 49499 ml Tube Feeding 384 ml Autotransfusion 2400 ml Packed Cells 1325 ml FFP 400 ml Tube Irrigant 145 ml Output Urine Total 1150 ml 500 ml 61618 ml Gastric Drainage Total 250 ml Estimated Blood Loss 303 ml # Bowel Movements 0 0 0 Exam GENERAL: NAD, Pt laying in bed comfortably HEENT: AT/NC, PERRLA, EOMI, Mucus Membranes are moist CARDIAC: RRR; No M/R/G PULM: CTAB; No wheezes or rhonchi bilaterally NEURO: Alert and oriented x3; Following all commands PSYCH: Normal mood and affect IVs and Medications Medications Reviewed: Medications were reviewed in detail Lab and Diagnostics Result Diagram: 06/25/16 0530 06/25/16 0530 Microbiology MRSA negative X-Rays, CTs and MRIs PROCEDURE: X-RAY CHEST ONE VIEW, PORTABLE ([id number]) IMPRESSION: 1. Markedly rotated patient. Central venous catheter is projected over the expected region of the SVC. However, repeat study without rotation is recommended. Dictated by: Lois Watt M.D. on 06/10/2016 at 21:07 PROCEDURE: X-RAY CHEST ONE VIEW, PORTABLE ([id number]) IMPRESSION: Bibasilar atelectasis versus aspiration or pneumonia. Correlate clinically. Dictated by: Victorino RADER Interpreted: Lizzy Mays MD on 06/12/2016 at 9:41 . Additional Diagnostics PROCEDURE: EMBOLIZATION OF BLEED IMPRESSION: 1. Status post coil embolization of the right internal iliac artery. Please note , despite the lack of active extravasation visualized on the study, the decision was made to embolize the right internal iliac artery as the patients clinical status suggested continued, occult arterial hemorrhage. Dictated by: Lois Watt M.D. on 06/11/2016 at 13:20 . Assessment & Plan 1. Acute Respiratory Failure, Hypoxemic - Secondary to Hemorrhagic Shock - Resolved - Pt was initially intubated for airway protection 2. Fever with Leukocytosis - Resolved - Source unclear but may be related to Aspiration - Pt completed a total of 10 days of IV Zosyn, and this was stopped on 06/22/2016 - Pt remains afebrile and his WBC count remains normal - Procalcitonin is negative 3. Hemorrhagic Shock - Resolved - Secondary to massive bleed post bladder tumor resection - Pt is status post massive PRBC transfusion and pt at one time required significant pressor support 4. Acute Blood Loss Anemia - See above - Continue to monitor H/H - H/H is stable at this time 5. Bladder Cancer - Oncology on board - Pt started chemotherapy on 06/22/2016, and has completed first cycle - He will eventually need to have his bladder removed once chemotherapy completed - Pt was initially on Dilaudid ADMITTING REPRESENTATIVE however this has been discontinued, and pt has been transitioned to PO opiates which are controlling his pain well - Continue MS Contin and PO Dilaudid PRN for pain relief - Continue CBI for pts blood clots for now, I have attempted to get a hold of Dr. Curry with Urology several times today without success to discuss plan for CBI further 6. Diabetes Mellitus, Type II - Continue SSI - Continue checking FSBS q AC and HS - Carbohydrate controlled diet 7. Generalized Weakness - Pt to ambulate as much as possible today - Will continue to have PT work with patient 8. Disposition - Pt will discharge to SNF vs home with home health PT once he no longer is requiring continuous bladder irrigation, and Urology has okay'd his discharge to home GI Prophylaxis: H2 leanna VTE Mechanical Devices: Intermittant Pneumatic CD Resuscitation Status: CPR: Attempt Resuscitation Terry Hui MD Jun 25, 2016 11:31
[2016-06-25] MEDS: Ondansetron 2 mg/mL 2 mL Inj IVPUSH PRN (14:12)
[2016-06-25] MEDS ORDERED: Morphine ER 30 mg (MS Contin) Tablet PO SCH (16:30)
--- NOTE | 2016-06-25 16:33 | NUR ---
Social Work: Brief Note Data & Assessment: SW met with patient at bedside to discuss HH choice. Patient stated that as of today he does not feel like he needs HH at home because he has enough family support. Patient stated that if he change his mind he would notify the SW. SW contact information is on patient's whiteboard. SW will continue to follow. Plan: Patient will likely discharge home with family and no HH. SW will continue to follow and assist patient throughout stay. Gay Infante, CHANTELL, ACRema
[2016-06-25] MEDS: 0.9% Sodium Chloride 250 ML IV SCH (17:12)
[2016-06-25 17:17] VITALS: BP 112/69; PULSE 90; RESP 17; O2SAT 99
--- NOTE | 2016-06-25 18:08 | PCM.PALLBR ---
Palliative Care Recommendation Summary of palliative recommendations: 06/25/16- Pain-Increase MS ER to 60 mg TID, HM at 4 mg Q6 which he can decrease to 2 mg prn and use 2-4 mg Q3 PRN. He will continue with oxybutynin-reviewed dental issues with dry mouth. Reviewed regular dosing with senna-BID and titrate up or down for BM Q 1-2 days. Plan is for him to go home with thakkar and this will be managed by Dr. Roman Curry. He will need coordination with oncology for f/u and to get his GCSF-as noted in Dr. Phipps's note. I suggest a follow up with me OP in about a week or so to assess pain and adjust and refill meds. Please send him home with 2 weeks of meds at above dosing. Caution re narcotics at home --he describes a low risk envir. 06/24/16-PAIN- Continue these meds for pain on discharge: 1. Scheduled hydromorphone at 2 mg po Q 6 hour. He can have 2-4mg po q 3 hours for BTP. 2. MSER 60mg po BID scheduled as long-acting pain medicine. Adjustments based on symptoms. May need bump in MS Contin but optimistic with control of bleeding with chemo--hopefully decrease in pain. He remains on oxybutynin. Hopefully, with chemotherapy and response of tumor that he is bladder spasms and subsequent pain will decrease. With his ambulation observed on 06/23- most likely will be able to go home when thakkar comes out. This may be as soon as 06/25 (per discussion in discharge rounds). Dr. Ethel Romero can see him in follow up in the Palliative Care Outpatient clinic for pain management until chemo takes effect and can help with tapering down pain meds. Hematuria-has to be controlled in order to be discharged. Hopefully with chemotherapy being initiated. Anorexia: 06/24 today he reports no improvement. Insomnia-situational and due to pain with increasing bleeding and clots.- Continue trazodone as prn med on discharge. [place] of symptoms-significant. His is sole breadwinner and also carries the health insurance. Reviewed need for support for her. She identifies very good support through work including the mayor in their town having lost his to cancer. She works for the [employer]. It would be helpful for his to have some forewarning regarding plans of care should that she can coordinate around work schedule POLST/DPOA/AD completed per over the w/e and copies in chart. DPOA: His Jessika is first and his son Ken is 2nd HCPOA. His goal is for aggressive management at this and he continues to be FULL CODE with aggressive chemotherapy/surgical therapy for his bladder cancer -Spiritual support-not interested. Problems: End of Life Preferences Full code; all aggressive treatment necessary Goals of Care FULL CODE and aggressive treatment at this time Disposition Reviewed consideration for SNF if possible once closer to discharge-- at this point both patient and his agree to SNF when likely to be discharged Resuscitation Status Resuscitation Status: CPR: Attempt Resuscitation POLST Updates/Changes Previous POLST?: No POLST Discussed with: Patient . Pain: Moderate Symptom management: Constipation Total time 35 minutes; >50% face to face with patient and/or family, providing counselling regarding plans and recommendations, and in care coordination with his/her medical teams. I also spent an additional [ ] minutes counseling for advanced care planning with the patient/the patients family/the surrogate decision maker. copies to: Fausto Salvador MD Palliative Brief Note Date of Service Jun 25, 2016 . 51 yo with aggressive bladder tumor. Seen for pain management and GOC O: alert, appropriate and decisional. Optimistic but realistic re challenges-initially weakness at home but also long course ahead. Pain barely controlled with significant amt of hydromorphone for breakthrough. Calculated dose increase would be MS 120 but will try with increase to TID with 60 mg and continue with the but at 4 mg for BTP Ethel Romero MD Jun 25, 2016 18:08
[2016-06-25 20:20] VITALS: BP 124/71; PULSE 101; RESP 18; O2SAT 96
--- NOTE | 2016-06-25 21:59 | PROG NOTE ---
[address] [address] PROGRESS NOTE PATIENT: DIANA CROWELL : 1965 MR#: [id number] ADMIT: 06/10/2016 JOB ID: [id number] DATE: PROGRESS NOTE: Postop TUR bladder tumor, now undergoing chemotherapy. Urine today is very lightly sanguinous with no continuous irrigations. Hand irrigations have produced a few tiny clots. Hematocrit is stable at 25.6, creatinine stable at 0.65. If the urine remains clear overnight, I would plan on removing his Weathers catheter first thing tomorrow morning. Once voiding, the patient could be discharged once we are certain he is ambulating easily with no further hematuria and voiding well. The remainder of his chemotherapy can be given as an outpatient.
[2016-06-26] MEDS: LORazepam 1 mg Tablet PO PRN (03:44)
[2016-06-26 06:04] VITALS: BP 101/55; PULSE 92; RESP 17; O2SAT 99
[2016-06-26 06:07] LABS: BASOPHILS % (AUTO) 0.4 % (0-3); EOSINOPHILS % (AUTO) 1.8 % (0-5); MONOCYTES % (AUTO) 2.3 % (4-12); Mean Corpuscular Hemoglobin 29.5 pg (27.0-35.0); Mean Corpuscular Volume 89.2 fL (81-100); NEUTROPHILS % (AUTO) 60.4 % (40-74); Platelet Count 162 bil/L (150-400)
--- NOTE | 2016-06-26 06:29 | NUR ---
Thakkar DC'd/ Pain medication Thakkar catheter DC'd per MD orders at 0615. 2mg Dilaudid IVP was given instead of scheduled PO Dilaudid for thakkar cath removal due to the pain and discomfort that the patient was experiencing. After thakkar removal, patients penis bled initially. Bleeding has stopped at this time. Patient has asked to wait to take scheduled 0600 ER morphine, states that he does not want to have to take it, if he does not have to. Will continue to monitor.
[2016-06-26] MEDS: Insulin LISPRO 300 Unit/3 mL Inj SUBQ SCH ×4 (08:00→22:19)
[2016-06-26] MEDS: Senna-Docusate 8.6-50 mg Tablet PO SCH ×2 (09:53→20:36)
[2016-06-26] MEDS: Morphine ER 30 mg (MS Contin) Tablet PO SCH ×3 (09:53→22:19)
[2016-06-26] MEDS: Furosemide 10 mg/mL 2 mL Inj IV SCH (09:54)
[2016-06-26 10:27] VITALS: BP 103/64; PULSE 95; RESP 18; O2SAT 99
[2016-06-26 12:59] VITALS: BP 114/70; PULSE 94; RESP 18; O2SAT 98
--- NOTE | 2016-06-26 14:45 | NUR ---
NUTRITION FOLLOW-UP: ASSESS: 51 YO M admitted to CCU for bladder mass and post-op respiratory distress requiring intubation. Pt was extubated 06/13. Pt had a port placed 06/17 in preparation for chemotherapy which was started 06/22. Pt diet has been advanced to heart healthy, diabetic and PO intake has improved to 50-100% of meals. Pt reported that he likes the Glucerna supplement shakes. No BM has been recorded, however MD noted in progress note that pt is having BMs. He is receiving appropriate bowel meds. Pt's wt has been stable over the last couple days and overall is slowly trending back down towards admit wt. PMHX: HLD, DM. LABS: Reviewed. Na 133, Cl 96, Bun 33, Glu 149, Alb 2.8 MEDS: Reviewed. Senna, Miralax. GI: No BM noted x 16 days. WT: 143.2kg. BMI 42.8kg/m2, IBW 80.9 kg. Admit weight: 134.6 kg. DIET: Heart Healthy, Diabetic, Glucerna all trays. PO 25-100% of meals. ESTIMATED NEEDS: BMI (based off admit wt) Calories: 0194-6497 kcal/day (20-22 kcal/kg BW) Protein: 95-120 g/day (1.2-1.5 g/kg IBW) NUTRITION DIAGNOSIS: 1) Inadequate oral intake related to decreased ability to consume sufficient energy as evidenced by current NPO/vent status ----IMPROVING, PO intake 50-100% of meals. NUTRITION INTERVENTION: 1.) Continue to send Glucerna on all trays. MONITOR/EVALUATE: PO intake, weight, GI/BM, labs, nutrition status. Follow per moderate nutrition risk guidelines
--- NOTE | 2016-06-26 15:40 | PCM.PNMED ---
Subjective Date of Service Jun 26, 2016 Subjective Patient was seen and examined at bedside today. Patient denies any chest pain, shortness of breath, nausea, vomiting, diarrhea. Patient states that he has had a bowel movement and has had some urine production as well. Overnight events: The patient's Weathers was discontinued Exam Vital Signs Vital Sign - Last Date Time Temp Pulse Resp B/P Pulse Ox O2 Delivery O2 Flow Rate FiO2 06/26/16 12:59 36.5 94 18 114/70 98 Nasal Cannula 3.00 Intake and Output 06/25/16 06/25/16 06/26/16 Cumulative From/Thru 15:00 23:00 07:00 06/10/16 00:53 - 06/26/16 06:03 Intake Total 440 ml 800 ml 45035 ml Output Total 1700 ml 1200 ml 44429 ml Balance -1260 ml -400 ml -30828 ml Intake Oral 440 ml 800 ml 23115 ml IV Total 87188 ml Tube Feeding 384 ml Autotransfusion 2400 ml Packed Cells 1325 ml FFP 400 ml Tube Irrigant 145 ml Output Urine Total 1700 ml 1200 ml 92959 ml Gastric Drainage Total 250 ml Estimated Blood Loss 303 ml # Bowel Movements 0 0 Exam Physical Exam: GEN: Patient was awake, alert, responding appropriately to questions HEENT: Pupils equal round and reactive to light, extraocular eye muscles intact , Neck soft supple, trachea midline, nomocephalic/atraumatic CV: +S1/S2, regular rate and rhythm, no murmurs auscultated Respiratory: CTAB, no wheezes, rales, rhonchi GI: +bowel sounds x4, soft, compressible, nontender to palpation EXT: no clubbing, cyanosis, edema Neuro: Cranial nerves II-XII grossly intact Psych: mood and affect were appropriate IVs and Medications Medications Reviewed: Medications were reviewed in detail Lab and Diagnostics Result Diagram: 06/26/1651906/26/16519 Microbiology MRSA negative X-Rays, CTs and MRIs PROCEDURE: X-RAY CHEST ONE VIEW, PORTABLE ([id number]) IMPRESSION: 1. Markedly rotated patient. Central venous catheter is projected over the expected region of the SVC. However, repeat study without rotation is recommended. Dictated by: Lois Watt M.D. on 06/10/2016 at 21:07 PROCEDURE: X-RAY CHEST ONE VIEW, PORTABLE ([id number]) IMPRESSION: Bibasilar atelectasis versus aspiration or pneumonia. Correlate clinically. Dictated by: Victorino Long RR Interpreted: Lizzy Mays MD on 06/12/2016 at 9:41 . Additional Diagnostics PROCEDURE: EMBOLIZATION OF BLEED IMPRESSION: 1. Status post coil embolization of the right internal iliac artery. Please note , despite the lack of active extravasation visualized on the study, the decision was made to embolize the right internal iliac artery as the patients clinical status suggested continued, occult arterial hemorrhage. Dictated by: Lois Watt M.D. on 06/11/2016 at 13:20 . Assessment & Plan Patient is a 51 y.o. 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 Past medical history of hyperlipidemia, DMII insulin dependent. Who presents from [facility], direct admit, for gross hematuria and dysuria. Acute Respiratory Failure, Hypoxemic - Secondary to Hemorrhagic Shock - Resolved - Pt was initially intubated for airway protection Fever with Leukocytosis - Resolved - Source unclear but may be related to Aspiration - Pt completed a total of 10 days of IV Zosyn, and this was stopped on 06/22/2016 - Pt remains afebrile and his WBC count remains normal - Procalcitonin is negative Hemorrhagic Shock - Resolved - Secondary to massive bleed post bladder tumor resection - Pt is status post massive PRBC transfusion and pt at one time required significant pressor support Acute Blood Loss Anemia - See above - Continue to monitor H/H - H/H is stable at this time Bladder Cancer - Oncology following - Pt started chemotherapy on 06/22/2016, and has completed first cycle - He will eventually need to have his bladder removed once chemotherapy completed - Pt was initially on Dilaudid EGG AND SPICE MIXER however this has been discontinued, and pt has been transitioned to PO opiates which are controlling his pain well - Continue MS Contin and PO Dilaudid PRN for pain relief Bowel regimen -Patient is currently on regular narcotic use and would benefit from a regular bowel regimen -Senna twice a day -Continue to monitor for any signs of constipation Diabetes Mellitus, Type II - Continue SSI - Continue checking FSBS q AC and HS - Carbohydrate controlled diet Generalized Weakness - Pt to ambulate as much as possible today patient's ambulation has been improving - Will continue to have PT work with patient Disposition - Pt will discharge will most likely discharge home with home health. At this time neurology states that as long as the patient is urinating and ambulating then he is able to go home. We will continue to monitor the patient for adequate urinary output and ensure that no further significant hematuria is present. The patient will likely be discharged home in the next 1-2 days. GI Prophylaxis: H2 leanna VTE Mechanical Devices: Intermittant Pneumatic CD Resuscitation Status: CPR: Attempt Resuscitation Luci Brown DO Jun 26, 2016 15:40
[2016-06-26] MEDS ORDERED: 0.9% Sodium Chloride 1,000 ML IV ONE (15:45)
[2016-06-26] MEDS: 0.9% Sodium Chloride 250 ML IV SCH (16:53)
[2016-06-26] MEDS: Ondansetron 2 mg/mL 2 mL Inj IVPUSH PRN (17:13)
--- NOTE | 2016-06-26 19:26 | NUR ---
Pain, Urination Patient continues to have some pain to the perineal area, controlled with ordered pain medication. Patient able to void in urinal post thakkar catheter removal. Care is ongoing.
[2016-06-26 20:40] VITALS: BP 99/60; PULSE 99; RESP 20; O2SAT 97
[2016-06-27 05:45] VITALS: BP 102/58; PULSE 101; RESP 20; O2SAT 97
[2016-06-27] MEDS: Morphine ER 30 mg (MS Contin) Tablet PO SCH ×2 (06:10→14:53)
[2016-06-27 06:18] LABS: Mean Corpuscular Hemoglobin 29.2 pg (27.0-35.0); Mean Corpuscular Volume 88.5 fL (81-100)
[2016-06-27] MEDS: Senna-Docusate 8.6-50 mg Tablet PO SCH (08:15)
[2016-06-27] MEDS: Furosemide 10 mg/mL 2 mL Inj IV SCH (08:16)
[2016-06-27] MEDS: Insulin LISPRO 300 Unit/3 mL Inj SUBQ SCH ×2 (08:44→12:00)
--- NOTE | 2016-06-27 10:05 | NUR ---
PT NOTE-- Patient up ambulating independently with FWW. Transferring in and out of bed independently as well. Discharge from PT services.
[2016-06-27] MEDS ORDERED: MORP-33 PO (12:00)
[2016-06-27] MEDS ORDERED: DIPH25CA6 PO (12:00)
[2016-06-27] MEDS ORDERED: OXYB5TAB10 PO (12:00)
[2016-06-27] MEDS ORDERED: SENN-133 PO (12:00)
[2016-06-27] MEDS ORDERED: LORA-303 PO (12:00)
[2016-06-27] MEDS ORDERED: FURO40TA4 PO (12:00)
[2016-06-27] MEDS ORDERED: HYDR2TAB27 PO (12:00)
--- NOTE | 2016-06-27 12:06 | PCM.DIMED ---
Discharge Instructions Date of Service Jun 27, 2016 Dates of Hospitalization Jun 10, 2016 at 00:46 Discharge Diagnosis Discharge Diagnosis Acute respiratory failure secondary to hemorrhagic shock Fever with leukocytosis Acute blood loss anemia Bladder cancer Diabetes type II Diet Diabetic Activity No restrictions (gradually return to normal daily activities) Call your provider Fever or Chills, Shortness of breath, Bleeding, Chest pain, Excessive diarrhea, Weakness (unilateral) Patient Instructions If these are significant amount of bleeding please contact Dr. Curry immediately and proceed to the emergency room. Follow-up Provider: Lizzy Curry MD Follow-up with PCP in: 1 week (please follow up with Dr. Curry if an appointment has not been made please call to make an appointment) Provider: Pat Phipps MD Follow-up in: 1 week (please follow-up with Dr. Phipps for your regularly scheduled chemotherapy) Luci Brown DO Jun 27, 2016 12:05
--- NOTE | 2016-06-27 12:07 | PCM.DC.MED ---
Discharge Summary Date of Service Jun 27, 2016 Dates of Hospitalization Date of Hospital Admission Jun 10, 2016 at 00:46 Date of Discharge: Jun 27, 2016 Providers: Admitting Physician: Denis Hines MD Primary Care Physician: Fausto Salvador MD Attending Physician: Denis Hines MD Diagnosis at Time of Discharge Diagnosis at Time of Discharge Acute respiratory failure secondary to hemorrhagic shock Fever with leukocytosis Acute blood loss anemia Bladder cancer Diabetes type II Procedures XRay, CTs & MRIs PROCEDURE: X-RAY CHEST ONE VIEW, PORTABLE ([id number]) IMPRESSION: 1. Markedly rotated patient. Central venous catheter is projected over the expected region of the SVC. However, repeat study without rotation is recommended. Dictated by: Lois Watt M.D. on 06/10/2016 at 21:07 PROCEDURE: X-RAY CHEST ONE VIEW, PORTABLE ([id number]) IMPRESSION: Bibasilar atelectasis versus aspiration or pneumonia. Correlate clinically. Dictated by: Victorino Long RRA Interpreted: Lizzy Mays MD on 06/12/2016 at 9:41 . Other Diagnostics PROCEDURE: EMBOLIZATION OF BLEED IMPRESSION: 1. Status post coil embolization of the right internal iliac artery. Please note , despite the lack of active extravasation visualized on the study, the decision was made to embolize the right internal iliac artery as the patients clinical status suggested continued, occult arterial hemorrhage. Dictated by: Lois Watt M.D. on 06/11/2016 at 13:20 . Brief History PALLIATIVE CARE CONSULTATION requesting MD- Dr. Atkinson urologist-Dr. Lizzy Curry oncologist Dr. Phipps PCP-recently lost his GROCERY SPECIALIST PCP 51 yo gentleman who was starting to address his health issues of DM2 on insulin , obesity, HLD with start of a weight loss program when 3 weeks prior to admissions he developed bladder pains, and hematuria. He was seen in ER at [facility] and CT scan noted a large bladder mass. He had this excised with complications of hemorrhage, need for fluid/blood resuscitation and temporary intubation. Bleeding was decreased with iliac artery embolization. He continues to bleed and require irrigation, continues to have 10 /10 pain associated with bladder spasms despite IV hydromorphone. He has never been a smoker and has no exposure to toxins to his knowledge. 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 He is and lives with his of 23 yrs-Jessika. They have 1 son Ken. He is distanced from his family-2 brothers and mother. He is aware that he has an aggressive malignancy and is in agreement with the plan to begin neoadjuvant chemo with plan for follow up radical cystectomy. He has no family hx of CA. Nonsmoker, nondrinker-denies illicit drugs. Does not like the sense of being out of control. Hospital Course Patient is a 51 y.o. 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 Past medical history of hyperlipidemia, DMII insulin dependent. Who presents from [facility], direct admit, for gross hematuria and dysuria. Patient was admitted from [facility] secondary to hemorrhagic shock and acute respiratory failure. The patient was initially intubated for airway protection. The patient had acute blood loss anemia secondary to bladder cancer and urology was consulted. The patient had continuous bladder irrigations and was also placed on IV Zosyn for 10 days secondary to his leukocytosis. The patient today is doing well and is able to void on his own with minimal to no blood in the urine. The patient is to continue on chemotherapy as an outpatient and have a possible tumor resection at a later date. The patient is being discharged home in stable condition See below for full hospital course: Acute Respiratory Failure, Hypoxemic - Secondary to Hemorrhagic Shock - Resolved - Pt was initially intubated for airway protection Fever with Leukocytosis - Resolved - Source unclear but may be related to Aspiration - Pt completed a total of 10 days of IV Zosyn, and this was stopped on 06/22/2016 - Pt remains afebrile and his WBC count remains normal - Procalcitonin is negative Hemorrhagic Shock - Resolved - Secondary to massive bleed post bladder tumor resection - Pt is status post massive PRBC transfusion and pt at one time required significant pressor support Acute Blood Loss Anemia - See above - Continue to monitor H/H - H/H is stable at this time Bladder Cancer - Oncology following - Pt started chemotherapy on 06/22/2016, and has completed first cycle - He will eventually need to have his bladder removed once chemotherapy completed - Pt was initially on Dilaudid [employer] however this has been discontinued, and pt has been transitioned to PO opiates which are controlling his pain well - Continue MS Contin and PO Dilaudid PRN for pain relief Bowel regimen -Patient is currently on regular narcotic use and would benefit from a regular bowel regimen -Senna twice a day -Continue to monitor for any signs of constipation Diabetes Mellitus, Type II - Continue SSI - Continue checking FSBS q AC and HS - Carbohydrate controlled diet Generalized Weakness - Pt to ambulate as much as possible today patient's ambulation has been improving - Will continue to have PT work with patient Disposition - Pt will discharge will most likely discharge home with home health. At this time neurology states that as long as the patient is urinating and ambulating then he is able to go home. We will continue to monitor the patient for adequate urinary output and ensure that no further significant hematuria is present. The patient will likely be discharged home in the next 1-2 days. Exam Vital Signs (Last) Date Time Temp Pulse Resp B/P Pulse Ox O2 Delivery O2 Flow Rate FiO2 06/27/16 05:45 36.7 101 20 102/58 97 Nasal Cannula 2.00 Exam Physical Exam: GEN: Patient was awake, alert, responding appropriately to questions HEENT: Pupils equal round and reactive to light, extraocular eye muscles intact , Neck soft supple, trachea midline, nomocephalic/atraumatic CV: +S1/S2, regular rate and rhythm, no murmurs auscultated Respiratory: CTAB, no wheezes, rales, rhonchi GI: +bowel sounds x4, soft, compressible, nontender to palpation EXT: no clubbing, cyanosis, edema Neuro: Cranial nerves II-XII grossly intact Psych: mood and affect were appropriate Test 06/10/16 01:30 06/10/16 07:22 06/10/16 21:30 06/11/16 01:52 Total Creatine Kinase 172U/L (21-232) Creatine Kinase MB 4.5ng/mL (0.0-10.4) Creatine Kinase MB % % (0.0-5.0) Troponin T 0.010ug/L (0.0-0.011) Reticulocyte Count,Calculated 1.5% (0.6-2.6) Iron Level 58ug/dL (35-150) Total Iron Binding Capacity 265ug/dL (250-450) Percent Iron Saturation 22%sat (15-50) Unsaturated Iron Binding 207.4ug/dL Ferritin 257ng/mL (30-400) Vitamin B12 Level 820pg/mL (211-946) Folate 17.8ng/mL (>3.0) Hold Matthew Top Tube Received (Received) Band Neutrophils % 9% (1-5) Metamyelocytes % 2% (0-0) Test 06/12/16 04:45 06/12/16 08:00 06/12/16 08:06 06/12/16 08:27 Phosphorus Level 2.5mg/dL (2.5-4.9) Urine Random Microalbumin 24.8ug/mL (Not Estab.) Urine Color Red (YELLOW) Urine Appearance Slightly cloudy Urine pH 6.5 (5.0-8.0) Urine Specific [place] 1.005 (1.003-1.035) Urine Protein Tracemg/dL (NEG,TRACE) Urine Glucose (UA) Negativemg/dL (NEGATIVE) Urine Ketones Negativemg/dL (NEGATIVE) Urine Occult Blood Large (NEGATIVE) Urine Nitrite Negative (NEGATIVE) Urine Bilirubin Negative (NEGATIVE) Urine Urobilinogen Normalmg/dL (NORMAL) Urine Leukocyte Esterase Small (NEGATIVE) Urine RBC Packed/hpf (0-2) Urine WBC 0-5/hpf (0-5) Urine Epithelial Cells Occasional/hpf (NONE-MOD) Urine Crystals None seen (NONE SEEN) Urine Bacteria Few/hpf (NONE-FEW) Urine Hyaline Casts None/lpf (NONE) Urine Granular Casts None seen (NONE SEEN) Urine Waxy Casts None seen (NONE SEEN) Urine Red Blood Cell Casts None seen (NONE SEEN) Urine White Blood Cell Casts None seen (NONE SEEN) Urine Mucus None seen (None Seen) Urine Trichomonas None seen (NONE SEEN) Urine Yeast None (NONE SEEN) Urinalysis Comment None Urine Culture Reflexed Not indicated Prothrombin Time 10.8sec (8.1-12.5) Prothromb Time International Ratio 1.01ratio Activated Partial Thromboplast Time 24.7sec (22.8-33.0) Fibrinogen 237mg/dL (157-380) Test 06/13/16 03:45 06/16/16 15:00 06/19/16 05:45 06/22/16 16:28 Lactic Acid Level 1.0mmol/L (0.4-2.0) Magnesium Level 1.9mg/dL (1.6-2.6) Hold Purple Top Tube Received (Received) Hold Blue Top Tube Received (Received) Hold [place] Top Tube Received (Received) Procalcitonin 0.13ng/mL (0.00-0.08) Hemoglobin A1c 6.2% (4.8-5.6) Test 06/23/16 05:25 06/26/16 05:20 06/27/16 05:50 Total Bilirubin 0.4mg/dL (0.0-1.2) Aspartate Amino Transf (AST/SGOT) 21U/L (0-50) Alanine Aminotransferase (ALT/SGPT) 21U/L (0-44) Alkaline Phosphatase 183U/L (25-150) Total Protein 5.5g/dL (6.4-8.4) Albumin 2.8g/dL (3.4-5.0) Neutrophils (%) (Auto) 60.4% (40-74) Lymphocytes (%) (Auto) 34.9% (14-46) Monocytes (%) (Auto) 2.3% (4-12) Eosinophils (%) (Auto) 1.8% (0-5) Basophils (%) (Auto) 0.4% (0-3) White Blood Count 4.8th/mm3 (3.8-10.1) Red Blood Count 2.88mil/mm3 (4.40-5.80) Hemoglobin 8.4g/dL (13.8-17.2) Hematocrit 25.5% (41.0-50.0) Mean Corpuscular Volume 88.5fL (81-100) Mean Corpuscular Hemoglobin 29.2pg (27.0-35.0) Mean Corpuscular Hemoglobin Concent 32.9% (32.0-37.0) Red Cell Distribution Width 13.5% (12.3-15.4) Platelet Count 157bil/L (150-400) Sodium Level 136mEq/L (134-144) Potassium Level 4.8mEq/L (3.5-5.2) Chloride Level 100mEq/L (97-108) Carbon Dioxide Level 20mmol/L (18-29) Blood Urea Nitrogen 30mg/dL (6-24) Creatinine 0.75mg/dL (0.76-1.27) Estimat Glomerular Filtration Rate 117mL/min (>59) Glucose Level 162mg/dL (60-99) Calcium Level 8.4mg/dL (8.5-10.1) Microbiology Results MRSA negative Discharge Medications Discharge Medications Furosemide (Furosemide) 40 Mg Tablet 40 MG PO DAILY Prescribed by: LUCI BROWN DO Gabapentin (Gabapentin) 300 Mg Capsule 300 MG PO DAILY (Reported) Morphine Sulfate ER (Morphine Sulfate ER) 30 Mg Tablet 60 MG PO Q8H Prescribed by: LUCI BROWN DO Oxybutynin Chloride (Oxybutynin Chloride) 5 Mg Tablet 5 MG PO TID Prescribed by: LUCI BROWN DO Sennosides (Senna) 8.6 Mg Tablet 8.6 MG PO BID Prescribed by: LUCI BROWN DO As needed Hydromorphone (Dilaudid) 2 Mg Tablet 2 MG PO Q3H PRN PRN For Pain Take 1-2 pills as needed for pain every 3 hours Prescribed by: LUCI BROWN DO Lorazepam (Ativan) 1 Mg Tablet 1 MG PO TID PRN PRN For Anxiety or Agitation Prescribed by: LUCI BROWN DO Naproxen (Naproxen) 500 Mg Tab 500 MG PO BID PRN PRN For Pain (Reported) diphenhydrAMINE HCl (Benadryl) 25 Mg Capsule 25 MG PO Q6H PRN PRN For Itching Prescribed by: LUCI BROWN DO Miscellaneous Medications Insulin Detemir (Levemir Flextouch) 100 Unit/1 Ml Insuln.pen 100 UNIT SQ ( Reported) Followup Plan Discharge Diet: Diabetic Discharge Activity: No restrictions (gradually return to normal daily activities) Patient Instructions If these are significant amount of bleeding please contact Dr. Curry immediately and proceed to the emergency room. Follow-up Provider: Lizzy Curry MD Follow-up with PCP in: 1 week (please follow up with Dr. Curry if an appointment has not been made please call to make an appointment) Provider: Pat Phipps MD Follow-up in: 1 week (please follow-up with Dr. Phipps for your regularly scheduled chemotherapy) Luci Brown DO Jun 27, 2016 12:07
--- NOTE | 2016-06-27 15:45 | NUR ---
Social Work: Discharge Data & Assessment: Architectural Renderer met with patient and patient's to discuss discharge plan and give patient HH choice. Patient did not have a preference for HH. SW referred patient to [facility] based on vendor calender, but was notified by [facility] that the HH does not cover the patient's area. SW called [facility] and they don't cover the patient's area either. SW referred patient to [facility]. Patient will discharge home with via POV and HH. Plan. Patient will discharge home with and HH. SW will continue to follow. Gay Infante, CHANTELL, ACM
--- NOTE | 2016-06-27 16:17 | NUR ---
Discharge Pt left with family in stable condition with all belongings at 1520, IV d/c'd, prescriptions given, pain medication given prior to discharge. Instructions for scheduling follow up appointments on Wednesday given.
[2016-07-01] MEDS ORDERED: TBO-480S SQ (15:27)
== END 2016-06-27 15:16 | disposition home health service (06) | DRG 668 ==
LOC: OBSVTOIN 00:46 → MOC 00:46 → CCU 18:55 → PREINTOOBSV 23:29 → PCC 06-15 07:52 → OSC 06-18 16:30
PROVIDERS: ADMIT Hospitalist; ATTEND Hospitalist
PROC: 30233N1 Transfusion of Nonautologous Red Blood Cells into Peripheral Vein, Percutaneous Approach (ICD-10-PCS; 2016-06-10)
PROC: 0TBB8ZX Excision of Bladder, Via Natural or Artificial Opening Endoscopic, Diagnostic (ICD-10-PCS; principal; 2016-06-10 15:00)
PROC: 04LE3DZ Occlusion of Right Internal Iliac Artery with Intraluminal Device, Percutaneous Approach (ICD-10-PCS; 2016-06-11)
PROC: 4A033R1 Measurement of Arterial Saturation, Peripheral, Percutaneous Approach (ICD-10-PCS; 2016-06-11)
PROC: 0BH17EZ Insertion of Endotracheal Airway into Trachea, Via Natural or Artificial Opening (ICD-10-PCS; 2016-06-11)
PROC: 5A1945Z Respiratory Ventilation, 24-96 Consecutive Hours (ICD-10-PCS; 2016-06-11)
PROC: 02HV33Z Insertion of Infusion Device into Superior Vena Cava, Percutaneous Approach (ICD-10-PCS; 2016-06-11)
PROC: B41F1ZZ Fluoroscopy of Right Lower Extremity Arteries using Low Osmolar Contrast (ICD-10-PCS; 2016-06-11)
PROC: B41C1ZZ Fluoroscopy of Pelvic Arteries using Low Osmolar Contrast (ICD-10-PCS; 2016-06-11)
PROC: 30233N1 Transfusion of Nonautologous Red Blood Cells into Peripheral Vein, Percutaneous Approach (ICD-10-PCS; 2016-06-11)
PROC: 30233R1 Transfusion of Nonautologous Platelets into Peripheral Vein, Percutaneous Approach (ICD-10-PCS; 2016-06-11)
PROC: 30233M1 Transfusion of Nonautologous Plasma Cryoprecipitate into Peripheral Vein, Percutaneous Approach (ICD-10-PCS; 2016-06-11)
PROC: 30233K1 Transfusion of Nonautologous Frozen Plasma into Peripheral Vein, Percutaneous Approach (ICD-10-PCS; 2016-06-11)
PROC: 30233N1 Transfusion of Nonautologous Red Blood Cells into Peripheral Vein, Percutaneous Approach (ICD-10-PCS; 2016-06-12)
PROC: 30233N1 Transfusion of Nonautologous Red Blood Cells into Peripheral Vein, Percutaneous Approach (ICD-10-PCS; 2016-06-13)
PROC: 0JH60XZ Insertion of Tunneled Vascular Access Device into Chest Subcutaneous Tissue and Fascia, Open Approach (ICD-10-PCS; 2016-06-17)
PROC: 02HV33Z Insertion of Infusion Device into Superior Vena Cava, Percutaneous Approach (ICD-10-PCS; 2016-06-17)
DX: C67.9 Malignant neoplasm of bladder, unspecified (principal); T81.19XA Other postprocedural shock, initial encounter; J96.01 Acute respiratory failure with hypoxia; D62 Acute posthemorrhagic anemia; E87.2 Acidosis; Z68.41 Body mass index [BMI] 40.0-44.9, adult; R31.0 Gross hematuria; E11.9 Type 2 diabetes mellitus without complications; Z79.4 Long term (current) use of insulin; E78.5 Hyperlipidemia, unspecified; E87.71 Transfusion associated circulatory overload; E66.9 Obesity, unspecified; R50.9 Fever, unspecified

== ENCOUNTER 2016-07-05 18:39 | Inpatient (IN) | payer OTHER ==
[~2016-07-05] VITALS: Ht 182.9 cm; Wt 129.3 kg
[~2016-07-05 18:39] MED LIST: DIPH25CA6 PO; FURO40TA4 PO; GABA-502 PO; HYDR2TAB27 PO; INSU100I25 SQ; LORA-303 PO; MORP-33 PO; NPR500T PO; OXYB5TAB10 PO; SENN-133 PO; TBO-480S SQ
[2016-07-05 18:50] VITALS: BP 129/79; PULSE 102; RESP 20; O2SAT 97
--- NOTE | 2016-07-05 19:09 | ED.REPORT ---
HPI- Male Date of Service Jul 05, 2016 ED Provider: Isaias Schuler MD Pt is a 51 y.o. male on current chemotherapy secondary to high grade papillary urothelial carcinoma who presents to the ED c/o worsening dysuria rated at a 10 onset 2 days ago. Pt reports associated back pain, difficulty urinating, and hematuria described as blood clots. He also states that he has been experiencing worsening right leg numbness and swelling onset 2 weeks ago, with increased difficulty ambulating due to pain. He reports having his Weathers catheter removed 7 days ago. He also states that he has been out of his pain medication for the past 2 days. Nursing Notes Stated Complaint: BLOOD IN URINE, BLADDER CANCER Chief Complaint: Male Abdominal Pain Nursing Notes Reviewed: Yes (i.Sec not reconciled) Allergies: Coded Allergies: No Known Allergies (Verified Allergy, Unknown, 07/05/16) Scheduled Furosemide (Furosemide) 40 Mg Tablet 40 MG PO DAILY Gabapentin (Gabapentin) 300 Mg Capsule 300 MG PO DAILY Morphine Sulfate ER (Morphine Sulfate ER) 30 Mg Tablet 60 MG PO Q8H Oxybutynin Chloride (Oxybutynin Chloride) 5 Mg Tablet 5 MG PO TID Sennosides (Senna) 8.6 Mg Tablet 8.6 MG PO BID Scheduled PRN Hydromorphone (Dilaudid) 2 Mg Tablet 2 MG PO Q3H PRN PRN For Pain Take 1-2 pills as needed for pain every 3 hours Lorazepam (Ativan) 1 Mg Tablet 1 MG PO TID PRN PRN For Anxiety or Agitation Naproxen (Naproxen) 500 Mg Tab 500 MG PO BID PRN PRN For Pain diphenhydrAMINE HCl (Benadryl) 25 Mg Capsule 25 MG PO Q6H PRN PRN For Itching Miscellaneous Medications Insulin Detemir (Levemir Flextouch) 100 Unit/1 Ml Insuln.pen 100 UNIT SQ Tbo-Filgrastim (Granix) 480 Mcg/0.8 Ml Syringe 480 MCG SQ General Time Seen by MD: 19:08 Chief Complaint Dysuria Hx Obtained From: Patient Arrived By: Walk-in Onset Occurred: 2 days ago Symptom Duration: Since onset Location: : Back: Penis Quality: Painful Severity: Current: Severe Recent Healthcare: Recent doctor visit Similar Sx Previous: Yes Past Medical History Past Medical History Notes: Urologist Dr. Curry Oncologist Dr. Phipps Past Medical History High grade papillary urothelial carcinoma (patient presented June 10 following a transfer from [facility], CT imaging showed a 10 x 6 cm mass, patient underwent incomplete "TURBT" by Dr. Curry 06/10 and post procedure to the patient became hemodynamically unstable and was coded, is reintubated required vasopressor and transfusion of 15 units of red cells as well as FFP and crisis cryoprecipitate. The patient was initiated on chemotherapy earlier this month, June 22 and and after number cycle she will undergo plan radical cystoprostatectomy. Patient is currently on G CSF support) Past Surgical History TURBT (?modified for bladder mass) Smoking History Never Smoker Ambulatory Status Independent Review of Systems Male: Reports Dysuria, Reports Hematuria (blood clots), Reports Urination decreased Musculoskeletal: Reports: Back pain, Extremity pain (Right lower extremity), Extremity swelling (Right lower extremity) Complete sys rev & neg: except as marked. Neurologic: Reports: Numbness (Right lower extremity), Problem walking (due to pain) Physical Exam Initial Vital Signs Vital Signs (First) Date Time Temp Pulse Resp B/P Pulse Ox O2 Delivery O2 Flow Rate FiO2 07/05/16 18:50 36.1 102 20 129/79 97 Room Air Initial VS: Reviewed, Vital signs abnormal (HR 102) Head / Eyes: Atraumatic, Normocephalic, PERRL Extremities: Vascular intact, Neuro intact Skin: Warm, Dry, No cyanosis Psychiatric: Mood/affect normal, Behavior normal, Normal thought content General/Constitutional: Awake, Alert, Well appearing, Well developed, Well hydrated, Well nourished, Not toxic appearing Appearance / Presentation: Positive: Obese, Uncomfortable, Negative: Pale Abdomen: Atraumatic, Soft, Non-tender, No guarding, No rebound, No distention Respiratory / Chest: Atraumatic, Breath sounds NL, Breath sounds = bilat, No respiratory distress Cardiovascular: Regular rhythm, Heart sounds NL Heart Rate / Rhythm: Positive: Tachycardia (Low-grade) Right extremity edema Neurologic: Oriented X3, Speech NL Focal Weakness: Positive: Lower extremity R Weakness with plantar and dorsal flexion and leg lift to right lower extremity. Interpretation & Diagnostics MR LUMBAR SPINE IMPRESSION: Mild spinal canal stenosis at L3-4 and L4-5 Radiologist: Jimbo Eastman MD Lab Results Interpretation Result Diagram: 07/05/16194407/[id number] Test 07/05/16 19:45 07/05/16 20:23 White Blood Count 4.0th/mm3 (3.8-10.1) Red Blood Count 3.10mil/mm3 (4.40-5.80) Hemoglobin 8.8g/dL (13.8-17.2) Hematocrit 27.3% (41.0-50.0) Mean Corpuscular Volume 88.1fL (81-100) Mean Corpuscular Hemoglobin 28.4pg (27.0-35.0) Mean Corpuscular Hemoglobin Concent 32.2% (32.0-37.0) Red Cell Distribution Width 13.8% (12.3-15.4) Platelet Count 224bil/L (150-400) Neutrophils (%) (Auto) 44% (40-74) Lymphocytes (%) (Auto) 25% (14-46) Monocytes (%) (Auto) 12% (4-12) Eosinophils (%) (Auto) 1% (0-5) Basophils (%) (Auto) 1% (0-3) Band Neutrophils % 3% (1-5) Metamyelocytes % 3% (0-0) Myelocytes % 7% (0-0) Promyelocytes % 2% (0-0) Blast Cells % 2% (0-0) Nucleated Red Blood Cells 0/100 WBC (0-24) Prothrombin Time 10.1sec (8.1-12.5) Prothromb Time International Ratio 0.95ratio Sodium Level 135mEq/L (134-144) Potassium Level 3.9mEq/L (3.5-5.2) Chloride Level 93mEq/L (97-108) Carbon Dioxide Level 28mmol/L (18-29) Blood Urea Nitrogen 14mg/dL (6-24) Creatinine 0.75mg/dL (0.76-1.27) Estimat Glomerular Filtration Rate 117mL/min (>59) Glucose Level 194mg/dL (60-99) Calcium Level 8.8mg/dL (8.5-10.1) Total Bilirubin 0.5mg/dL (0.0-1.2) Aspartate Amino Transf (AST/SGOT) 28U/L (0-50) Alanine Aminotransferase (ALT/SGPT) 18U/L (0-44) Alkaline Phosphatase 229U/L (25-150) Total Protein 7.1g/dL (6.4-8.4) Albumin 3.6g/dL (3.4-5.0) Hold Matthew Top Tube Received (Received) Urine Color Yellow (YELLOW) Urine Appearance Clear (CLEAR,HAZY) Urine pH 7.0 (5.0-8.0) Urine Specific [place] 1.015 (1.003-1.035) Urine Protein 30mg/dL (NEG,TRACE) Urine Glucose (UA) Negativemg/dL (NEGATIVE) Urine Ketones Negativemg/dL (NEGATIVE) Urine Occult Blood Large (NEGATIVE) Urine Nitrite Negative (NEGATIVE) Urine Bilirubin Negative (NEGATIVE) Urine Urobilinogen Normalmg/dL (NORMAL) Urine Leukocyte Esterase Trace (NEGATIVE) Urine RBC 3-10/hpf (0-2) Urine WBC 0-5/hpf (0-5) Urine Epithelial Cells None/hpf (NONE-MOD) Urine Crystals None seen (NONE SEEN) Urine Bacteria Few/hpf (NONE-FEW) Urine Hyaline Casts None/lpf (NONE) Urine Granular Casts None seen (NONE SEEN) Urine Waxy Casts None seen (NONE SEEN) Urine Red Blood Cell Casts None seen (NONE SEEN) Urine White Blood Cell Casts None seen (NONE SEEN) Urine Mucus None seen (None Seen) Urine Trichomonas None seen (NONE SEEN) Urine Yeast None (NONE SEEN) Urinalysis Comment None Urine Culture Reflexed Indicated US Soft Tissue/Musculoskeletal IMPRESSION: No evidence for deep vein thrombosis in the veins examined of the right lower extremity. Radiologist: Jimbo Eastman MD Re-Eval/Medical Decision Med Decision/Clinical Course This is a 51-year-old male with a history of newly diagnosed bladder cancer that required resection, complicated by hemorrhage and cardiac arrest requiring 15 unit transfusion several weeks ago. He just restarted restarted chemotherapy. He presents tonight with a chief complaint of urinary retention and symptoms stating that he thinks is identical to when he had urinary retention secondary to blood clots. Denies fevers or chills. It also turns out is having some numbness and weakness in the right leg which progressed over the past 2 weeks. Discontinue have terrible pain-and is out of his pain medications with OxyContin and breakthru dilaudid (according to his he has not missed her over taking the medicines, simply out, but did not want to ask for refills due to being concerned that people might think him a "wimp") Patient appears quite uncomfortable on initial evaluation. He also does have some weakness in the right leg. No other focal deficits appreciated. He does complain of some back discomfort. A Weathers (3 way) was placed in anticipation of gross hematuria and the need for irrigation-the urine obtained was actually clear. No gross hematuria occurred. The patient was still in discomfort are multiple titrated doses of pain medicine. With the combination of urinary retention, right lower lobe weakness, cancer, back pain-an emergent MRI was obtained to evaluate for a possble acute lower spinal lesion, but was negative. On reevaluation the patient's more comfortable. However he and his are requesting admission for symptomatic management and state they are not come for discharge home. The patient is being admitted to the hospitalist service. Given the late hour, and absence of emergent need for urologic or oncologist intervention at this hour, the plan is to have the hospitalist team discussed the case with the consultants in the a.m. hours. Source of Hx: Old records Re-Evaluation/Progress #1: Time of Eval: 22:08 Patient Status: No relief Re-Evaluation/Progress Note: Pt rechecked. Pt is still in pain. Discussed need for imaging, pt understands and agrees with plan. Re-Evaluation/Progress #2: Time of Eval: 00:43 Patient Status: No relief Re-Evaluation/Progress Note: Pt rechecked. Pt is still in pain. Discussed imaging results. Discussed need for admit. Pt udnerstands and agrees with plan. Consultation #1: Call Returned at: 22:22 Note: Consulted with Dr. Craig Vitale, on-call for Dr. Phipps. They recommend an MRI as the pt may be a candidate for surgery. Consultation #2: Referral / Consult Name: Denis Hines MD Consulted With: Hospitalist Call Returned at: 01:02 Distillery Supervisor: Will see patient, Agrees with eval, Agrees with plan, Accepts admit Note: Discussed pt condition, accepts admit. Counseled Regarding: Diagnosis, Lab results, Need for admission Discharge & Departure Impression: Primary Impression: Urinary retention Additional Impressions: Intractable pain Weakness of right lower extremity Bladder cancer Bladder location: unspecified site Qualified Code: C67.9 - Malignant neoplasm of bladder, unspecified Disposition: ADMITTED TO HOSPITAL Discharge Condition All VS Reviewed: Yes Condition: Improved Referrals: Fausto Salvador MD (PCP) Glo Attestation Portions of this note were transcribed by Silvia Alberts. I, Dr. Schuler personally performed the history, physical exam and medical decision-making; I reviewed and confirmed the accuracy of the information in the transcribed note. Signed by: Glo Leonard, 07/06/16 and 0120. copies to: Fausto Salvador MD, Matthew F MD Jul 05, 2016 19:09 SILVIA ALBERTS Jul 05, 2016 19:25
[2016-07-05] MEDS ORDERED: Morphine ER 100 mg (MS Contin) Tablet PO ONE (19:30)
[2016-07-05] MEDS ORDERED: Lidocaine 2% 6mL Topical Jelly TOPICAL ONE (19:30)
[2016-07-05] MEDS ORDERED: Ondansetron 2 mg/mL 2 mL Inj IVPUSH ONE (19:30)
[2016-07-05] MEDS ORDERED: Morphine ER 30 mg (MS Contin) Tablet PO ONE (20:00)
[2016-07-05 20:02] LABS: Mean Corpuscular Volume 88.1 fL (81-100)
[2016-07-05 20:13] LABS: Mean Corpuscular Hemoglobin 28.4 pg (27.0-35.0); Platelet Count 224 bil/L (150-400)
[2016-07-05] MEDS: HYDROmorphone 1 mg/mL Inj IVPUSH PRN ×3 (20:13→22:50)
[2016-07-05 20:21] LABS: INR 0.95 ratio
[2016-07-05 20:30] LABS: BASOPHILS % (AUTO) 1 % (0-3); EOSINOPHILS % (AUTO) 1 % (0-5); MONOCYTES % (AUTO) 12 % (4-12); NEUTROPHILS % (AUTO) 44 % (40-74)
[2016-07-05 20:58] LABS: APPEARANCE,URINE CLEAR (CLEAR,HAZY); COLOR,URINE YELLOW (YELLOW); OCCULT BLOOD,URINE LARGE (NEGATIVE); UROBILINOGEN,URINE NORMAL (NORMAL)
[2016-07-06] VITALS (14 sets, daily range): BP systolic 116–155; BP diastolic 65–80; PULSE 92–103; RESP 15–22; O2SAT 91–99
[2016-07-06] MEDS: HYDROmorphone 1 mg/mL Inj IVPUSH PRN (00:10)
--- NOTE | 2016-07-06 00:35 | DRSVH ---
PROCEDURE: MRI LUMBAR SPINE WITH AND WITHOUT CONTRAST ([id number]) INDICATIONS: 51 year-old male with history of high-grade papillary urothelial carcinoma presenting wo rsening dysuria, back pain, difficulty urinating, and worsening right leg numbness and swelling. TECHNIQUE: Noncontrast sagittal T1 spin echo and T2 fast spin echo, sagittal STIR, axial T1 and T2 fast spin ech o through the lumbar spine. In cases with scoliosis, additional coronal T2 fast spin echo may be per formed. After the administration of contrast, sagittal and axial T1 spin echo with fat saturation th rough the lumbar spine. COMPARISON: None. FINDINGS: Image quality: There is mild motion artifact. Alignment and curvature: There is normal bony alignment. Marrow: Marrow is of normal overall signal. No acute vertebral body compression fractures. No susp icious marrow enhancement or discrete mass lesions to suggest metastatic disease. Spinal cord: Conus medullaris terminates at the L1 level. Visualized spinal cord demonstrates naz l signal, without suspicious enhancement. No definite abnormal enhancement or mass lesion along the cauda equina nerve roots. Paraspinous soft tissues: No paravertebral masses or abnormal enhancement. L1-L2: Normal appearance. L2-L3: Slight disc desiccation with a minimal disc bulge. No spinal canal or neuroforaminal narrowin g. L3-L4: Small broad-based disc bulge with mild facet arthropathy and ligamentum flavum hypertrophy. T here is mild spinal canal narrowing with minimal bilateral neuroforaminal narrowing. L4-L5: Small broad-based disc bulge with mild facet arthropathy. There is minimal spinal canal narro wing with minimal bilateral neuroforaminal narrowing. L5-S1: Mild disc desiccation with mild loss of disc height and a small central disc bulge. No spina l canal or neuroforaminal narrowing. IMPRESSION: 1. No high-grade spinal canal or neuroforaminal narrowing in the lumbar spine. 2. No evidence of metastatic disease in the lumbar spine. 3. Mild degenerative changes as described. Dictated by: Erwin Moser M.D. on 07/06/2016 at 0:34 Approved by: Erwin Moser M.D. on 07/06/2016 at 0:34
[2016-07-06] MEDS ORDERED: Polyethylene Glycol (PEG) 17 Gm Powder PO PRN (01:50)
[2016-07-06] MEDS ORDERED: HYDROmorphone 1 mg/mL Inj IVPUSH PRN (01:50)
--- NOTE | 2016-07-06 02:17 | PCM.HPMED ---
Subjective Date of Service Jul 06, 2016 Primary Provider: Admitting Physician: Denis Hines MD Primary Care Physician: Fausto Salvador MD Attending Physician: Denis Hines MD Admit Status: From the Emergency Department, Remote Telemetry Chief Complaint: Intractable pain refractory to oral medications secondary to malignancy History of Present Illness: Mr. Knutson is an extremely pleasant 51-year-old gentleman with an unfortunate history of high grade papillary urothelial carcinoma s/p incomplete TURBT, DM2, and hyperlipidemia, that presented to [facility] with intractable pain refractory to oral medications secondary to malignancy, with associated right lower extremity swelling and redness, and urinary retention. Hospital day one. The patient states he ran out of his pain medications over this most recent weekend, and his pain became unbearable. He states that prior to running out of his medications, the pain was not adequately controlled. He has also noted some right lower extremity erythema and swelling, in addition to urinary retention. He attributed his urinary retention to a possible repeat of blood clots, but a Weathers was placed in the emergency department, no blood clots were noted. He states his pain is quite severe, relatively confined within the region of his bladder. He denies any associated shortness of breath, chest pain , palpitations, nausea, vomiting, diarrhea. He does note some constipation since initiating opioid therapy to control his pain, and he also notes significant decrease in appetite since receiving his first dose of chemotherapy. He was recently seen by the medical oncology office, and he has recently been treated with dose-dense MVAC on June 22 and in the hospital, and was discharged with the plan for 10 days of Neupogen support, which was reported to be initiated on June 30. His next treatment of MVAC is scheduled for July 06. He was recently admitted at this facility in 06/10/16-06/27/16 as a direct transfer from [facility]. At [place], he was admitted for what appeared to be a UTI, with symptoms of gross hematuria and pain with urination. CT completed at that facility showed a right-sided bladder mass measuring 10 x 5.8 cm with right-sided hydronephrosis. He underwent an incomplete TURBT by Dr. Curry on June 10, which revealed a large, very hemorrhagic tumor. Postoperatively, the patient became hemodynamically unstable and was coded. He was emergently intubated, placed on vasopressor therapy, and received approximately 15 units of packed red blood in addition to FFP and cryoprecipitate. At discharge 06/27, pain medications included morphine sulfate ER 60 mg q8h in addition to Dilaudid 2 mg every 3 hours needed for pain. In the ED, temp 36.1, pulse 102, respiratory rate 20, blood pressure 129/79, 97 % on room air; initial labs revealed WBC 4.0 with the presence of multiple blast cells and metamyelocytes, hemoglobin 8.8; creatinine 0.75, alkaline phosphatase 229, INR 0.95; UA revealed positive protein, large occult blood, trace leukocyte esterase, few bacteria, urine sent for culture. Three-way Weathers catheter with irrigation was placed, no clots seen. Right lower extremity duplex obtained to evaluate right lower extremity erythema and swelling, no DVTs noted; stat MR lumbar spine obtained for indication of urinary retention and lower extremity weakness, no abnormalities of high-grade stenosis, neuroforaminal narrowing, or bone metastases noted. Patient was transferred to [facility] in stable condition. Review of Systems: Complete ROS obtained; pertinent positives and negatives as noted above Allergies Coded Allergies: No Known Allergies (Verified Allergy, Unknown, 07/05/16) Home Medications From ED documentation Furosemide (Furosemide) 40 Mg Tablet 40 MG PO DAILY Gabapentin (Gabapentin) 300 Mg Capsule 300 MG PO DAILY Morphine Sulfate ER (Morphine Sulfate ER) 30 Mg Tablet 60 MG PO Q8H Oxybutynin Chloride (Oxybutynin Chloride) 5 Mg Tablet 5 MG PO TID Sennosides (Senna) 8.6 Mg Tablet 8.6 MG PO BID Scheduled PRN Hydromorphone (Dilaudid) 2 Mg Tablet 2 MG PO Q3H PRN PRN For Pain Take 1-2 pills as needed for pain every 3 hours Lorazepam (Ativan) 1 Mg Tablet 1 MG PO TID PRN PRN For Anxiety or Agitation Naproxen (Naproxen) 500 Mg Tab 500 MG PO BID PRN PRN For Pain diphenhydrAMINE HCl (Benadryl) 25 Mg Capsule 25 MG PO Q6H PRN PRN For Itching Miscellaneous Medications Insulin Detemir (Levemir Flextouch) 100 Unit/1 Ml Insuln.pen 100 UNIT SQ Tbo-Filgrastim (Granix) 480 Mcg/0.8 Ml Syringe 480 MCG SQ PMH Acute respiratory failure requiring intubation secondary to hemorrhagic shock Cardiac arrest Type II diabetes Acute blood loss anemia status post 15 units packed red blood cells plus FFP plus cryoprecipitate High-grade papillary urothelial carcinoma Hyperlipidemia Surgical History Left shoulder arthroscopy Transurethral resection of bladder tumor May 2016 Family History Patient denies any family history of malignancies, pulmonary disease, coronary disease Social History Occupation: [employer] Hx Alcohol Use: Yes (no current use) Hx Substance Use: No Hx Tobacco Use: No Smoking Status: Never Smoker Living Arrangement: with Family (with in [place]) Exam Vital Signs Vital Sign - Last Date Time Temp Pulse Resp B/P Pulse Ox O2 Delivery O2 Flow Rate FiO2 07/06/16 01:53 36.3 92 18 127/80 99 Room Air Intake and Output 07/05/16 07/05/16 07/06/16 Cumulative From/Thru 15:00 23:00 07:00 07/05/16 20:32 - 07/06/16 00:04 Output Total 3200 ml 900 ml 4100 ml Balance -3200 ml -900 ml -4100 ml Output Urine Total 3200 ml 900 ml 4100 ml Bladder Scan Volume Amount 560 Exam General: AAOx3; mild distress, pleasant and cooperative HEENT: Atraumatic, EOMI, sclera anicteric, mucous membranes are moist Cardiac: Tachycardic rate of approximately 90-100, no murmurs appreciated Respiratory: Adequate airflow all glover, no wheeze or rhonchi appreciated Abdomen: Soft, nontender, nondistended, obese Extremities: Right lower extremity notably larger in size compared to left, with erythema and swelling, decreased sensation; left lower extremity non- erythematous; R > L lower extremity edema, with right moderate pitting extending from dorsum to mid calf, left lower extremity is mildly edematous dorsum to ankle Skin: Warm and dry Neuro: Grossly intact, speech without slurring, facial expressions equal and symmetric Psych: Appropriate mood, affect, and responses to questioning; good insight and judgment Lab and Diagnostics Result Diagram: 07/05/16194407/05/161944 Assessment & Plan Mr. Knutson is an extremely pleasant 51-year-old gentleman with an unfortunate history of high grade papillary urothelial carcinoma s/p incomplete TURBT, DM2, and hyperlipidemia, that presented to [facility] with intractable pain refractory to oral medications secondary to malignancy, with associated right lower extremity swelling and redness, and urinary retention. Hospital day one. Intractable pain refractory to oral medications secondary to malignancy, acute, present on admission. Ongoing - Home meds: MS Contin 60 mg q8h + Dilaudid 2 mg q3h prn - Current: MS Contin 60 mg + Dilaudid 1 mg IV q2h prn - Patient met with palliative care during previous admission - Placed consult; please contact team with verbal report to reconsult for pain management - Patient wishes for good oral regimen, in addition to effective breakthrough when needed Right lower extremity swelling and erythema, acute, present on admission. OngoingT - DDx: DVT, effect of chemotherapy, cellulitis - US duplex 07/05: No DVT - ASO titer, PCT; unlikely infectious - No antibiotics at this time High-grade papillary urothelial carcinoma status post incomplete TURBT, chronic. Presumed stable - Incomplete TURBT 05/2016 - Urology consult order placed; please contact team in morning with verbal report - Oncology consult order place; please contact team in the morning with verbal report, as patient is due for chemotherapy 07/06 Diabetes mellitus, type II, chronic. Presumed stable - HbA1c 06/2016: 6.2 - Low-dose correctional in place at this time Weakness, acute, present on admission. Ongoing - Likely secondary to chemotherapy effects - Physical therapy evaluation Constipation, acute, present on admission. Under therapy - Likely secondary to opioid regimen - Miralax scheduled at this time; once regularity achieved, transition to as needed or remain as scheduled PRN fever/pain/bowel/nausea DVT: Hep q8 Diet: General GI: Not indicated Code: FULL CODE Patient status: Due to severity presenting symptoms, risk of adverse events, and likely course of care, anticipated length of stay is less than 2 midnights; patient admitted as observation Pain Evaluation: Adequate Pain Control GI Prophylaxis: Not indicated VTE Prophylaxis: Sub-Q Heparin (Unfractionated) Resuscitation Status: CPR: Attempt Resuscitation Attending Statement The patient was seen and examined together with Dr. Matthews on 07/06 and I agree with the history, exam and plan as outlined in the note above. Angelita Matthews DO Jul 06, 2016 02:17 Denis Hines MD Jul 06, 2016 04:13
[2016-07-06] MEDS ORDERED: Glucose 40% Oral Gel 15 Gm Tube PO PRN ×2 (02:35→03:25)
[2016-07-06] MEDS ORDERED: diphenhydrAMINE 25 mg Capsule PO PRN (02:45)
[2016-07-06] MEDS ORDERED: Dextrose 5% 1,000 ML IV SCH (03:24)
[2016-07-06] MEDS ORDERED: Insulin GLARgine 100 Unit/mL Syringe SUBQ ONE (03:25)
[2016-07-06] MEDS ORDERED: HYDROmorphone PCA 0.2 mg/mL 30 mL Inj IV PRN (03:25)
[2016-07-06] MEDS ORDERED: HYDROmorphone 0.5 mg/0.5 mL iSecure Syringe IVPUSH PRN (03:25)
[2016-07-06] MEDS: Dextrose 5% 500 ML IV SCH (03:38)
[2016-07-06 07:08] LABS: Mean Corpuscular Hemoglobin 28.3 pg (27.0-35.0); Mean Corpuscular Volume 88.1 fL (81-100); Platelet Count 191 bil/L (150-400)
[2016-07-06 07:27] LABS: Phosphorus 3.4 mg/dL (2.5-4.9)
[2016-07-06 07:43] LABS: BASOPHILS % (AUTO) 1 % (0-3); EOSINOPHILS % (AUTO) 3 % (0-5); MONOCYTES % (AUTO) 17 % (4-12); NEUTROPHILS % (AUTO) 42 % (40-74)
[2016-07-06] MEDS: Insulin LISPRO 300 Unit/3 mL Inj SUBQ SCH ×4 (07:48→23:52)
[2016-07-06] MEDS ORDERED: Insulin LISPRO 300 Unit/3 mL Inj SUBQ SCH (08:00)
[2016-07-06] MEDS: Polyethylene Glycol (PEG) 17 Gm Powder PO SCH (08:30)
[2016-07-06] MEDS ORDERED: Morphine ER 30 mg (MS Contin) Tablet PO SCH (08:30)
[2016-07-06] MEDS: Heparin 5,000 Unit/mL Inj SUBQ SCH ×2 (08:55→16:29)
[2016-07-06] MEDS: Morphine ER 30 mg (MS Contin) Tablet PO SCH ×3 (08:55→21:54)
--- NOTE | 2016-07-06 09:28 | PCM.CONPAL ---
Date of Service Jul 06, 2016 Date of Hospital Admission: Jul 06, 2016 at 01:37 Date of Palliative Consult: Jul 06, 2016 Requesting Provider: Angelita Matthews DO Reason Palliative Care Consult: Pain Hospital Unit @time of consult: Orthopedic/Surgical Care Palliative Care Recommendation Summary of palliative recommendations: -Symptom management (Pain/other) Pain- seems to be primarily spasm. Of interest is that his bladder scan seems to indicate 200-400 cc of retention despite thakkar and irrigation. His oxybutynin had been d/brenda on admit so will try restarting that-5 mg PO TID He dd not find B&O supp to be of any help. He will continue on MS ER 60 mg TID and added HM AVIAN KEEPER. Suspect he needs fair dosing of AVIAN KEEPER for control Depression- adjustment -DPOA/Advanced Directives/POLST-Full code DPOAHC is his - Additional Medical Diagnoses with primary management by Hospitalist team include : Problems: End of Life Preferences full code Disposition home at discharge Resuscitation Status Resuscitation Status: CPR: Attempt Resuscitation . Symptom management: Pain Pt History History of Present Illness PALLIATIVE CONSULTATION Requesting provider: Dr. Roman Worthington Reason: Pain control 51 yo pt known to PC with hx of bladder CA and pain primarily from bladder spasms and clots/obstruction. He is followed by Dr. Roman Curry urology and Dr. Phipps for oncology and has started chemo in preparation for cystectomy and prostatectomy. He states on discharge he di well for about 10-12 hours and then he developed increasing pain and painful urination-"like urinating BB's" and sense of retention. He ran out of his pain meds and came to the ER with intractable pain. He noticed only small amt of debris or clots in urine. No constipation noted He has hx HTN, obesity and DM. No change to his PMHX-see prior admission note. Past Medical History Significant PMH Noted: see prior note Social History Occupation: see prior note Social Support: his and son Living Situation: lives with his Responsive Patient Symptoms Pain (minimum): Moderate Pain (maximium): Severe *Requires 72 Hour Followup Tiredness/Fatigue: Moderate Nausea: Mild Depression: Moderate Shortness of Breath: Mild Palliative Performance Scale Performance Scale: 100% Allergy Allergies Reviewed: Yes Medications Current Medications: Current Medications Hydromorphone HCl 1 mg Q15MIN PRN IVPUSH Last administered on 07/06/16 00:10; Admin Dose 1 MG; Start 07/05/16 at 19:30; Stop 07/06/16 at 02:11; Status DC Heparin Sodium (Porcine) 5,000 unit Q8 SUBQ Last administered on 07/06/16 08:55 ; Admin Dose 5,000 UNIT; Start 07/06/16 at 08:30 Al Hydrox/Mg Hydrox/Simethicone 30 ml Q6H PRN PO; Start 07/06/16 at 01:50 Ondansetron HCl 4 to 8 mg Q4H PRN IVPUSH; Start 07/06/16 at 01:50 Senna 17.2 mg BID PRN PO; Start 07/06/16 at 01:50 Polyethylene Glycol 17 gm DAILY PRN PO; Start 07/06/16 at 01:50; Stop 07/06/16 at 02:55; Status DC Hydromorphone HCl 1 mg Q2H PRN IVPUSH Last administered on 07/06/16 02:24; Admin Dose 1 MG; Start 07/06/16 at 01:50; Stop 07/06/16 at 03:39; Status DC Morphine Sulfate 60 mg BID PO; Start 07/06/16 at 08:30; Stop 07/06/16 at 08:30; Status DC Morphine Sulfate 60 mg TID PO Last administered on 07/06/16 08:55; Admin Dose 60 MG; Start 07/06/16 at 08:30 Insulin Human Lispro Nutritional Dose to be given pr... [facility] SUBQ; Start at 08:00; Stop 07/06/16 at 08:00; Status DC Diphenhydramine HCl 25 mg Q6H PRN PO; Start 07/06/16 at 02:45 Furosemide 40 mg DAILY PO Last administered on 07/06/16 08:53; Admin Dose 40 MG ; Start 07/06/16 at 08:30 Gabapentin 300 mg DAILY PRN PO; Start 07/06/16 at 02:45 Lorazepam 1 mg TID PRN PO; Start 07/06/16 at 02:55 Naproxen 500 mg BID PRN PO; Start 07/06/16 at 02:54 Polyethylene Glycol 17 gm DAILY PO; Start 07/06/16 at 08:30 Insulin Human Lispro Nutritional Dose to be given pr... [facility] SUBQ; Start at 08:00 Dextrose/Water 1,000 ml @ 10 mls/hr Q24H IV; Start 07/06/16 at 03:24; Stop at 03:38; Status DC Hydromorphone HCl Dose Range: 0.5 mg to 1 mg Q1H PRN IVPUSH; Start 07/06/16 at 03:25 Dextrose/Water 500 ml @ 10 mls/hr Q24H IV; Start 07/06/16 at 03:38 Scheduled Furosemide (Furosemide) 40 Mg Tablet 40 MG PO DAILY Morphine Sulfate ER (Morphine Sulfate ER) 30 Mg Tablet 60 MG PO Q8H Oxybutynin Chloride (Oxybutynin Chloride) 5 Mg Tablet 5 MG PO TID Sennosides (Senna) 8.6 Mg Tablet 8.6 MG PO BID Scheduled PRN Gabapentin (Gabapentin) 300 Mg Capsule 300 MG PO DAILY PRN PRN For Pain Hydromorphone (Dilaudid) 2 Mg Tablet 2 MG PO Q3H PRN PRN For Pain Take 1-2 pills as needed for pain every 3 hours Lorazepam (Ativan) 1 Mg Tablet 1 MG PO TID PRN PRN For Anxiety or Agitation Naproxen (Naproxen) 500 Mg Tab 500 MG PO BID PRN PRN For Pain diphenhydrAMINE HCl (Benadryl) 25 Mg Capsule 25 MG PO Q6H PRN PRN For Itching Miscellaneous Medications Insulin Detemir (Levemir Flextouch) 100 Unit/1 Ml Insuln.pen 100 UNIT SQ Objective Findings Exam Vital Sign - Last Date Time Temp Pulse Resp B/P Pulse Ox O2 Delivery O2 Flow Rate FiO2 07/06/16 08:31 36.8 96 18 116/65 95 Nasal Cannula 2.00 Intake and Output 07/05/16 07/05/16 07/06/16 Cumulative From/Thru 15:00 23:00 07:00 07/05/16 20:32 - 07/06/16 05:22 Intake Total 150 ml 150 ml Output Total 3200 ml 1650 ml 4850 ml Balance -3200 ml -1500 ml -4700 ml Intake Oral 150 ml 150 ml Output Urine Total 3200 ml 1650 ml 4850 ml Bladder Scan Volume Amount 560 # Bowel Movements 0 0 Objective OX3, polite gentleman with moderate grimacing and occasional gripping pain which he would rate 9/10 General: Alert/Oriented x3, Moderate distress HEENT: PERRLA, EOMI, Scleral Anicteric Heart: Regular Rate/Rhythm Lungs: Clear to Auscultation Abdomen: Soft, Other (suprapubic tenderness) Lab/Diagnostics Lab and Imaging results reviewed in detail in EMR. Patient/Family Conference Members Present Family Members Present patient Medical Team Members Present? Marcos SMITH Discussion/Goals of Care Discussion FAMILY UNDERSTANDING OF DISEASE: Pain- primarily bladder spasm Patient is well aware of his condition. Reviewed issue re opiates for treatment of cancer pain. Reviewed accessing the PC service to assist even when OP DISEASE PROGRESSION/EVIDENCE OF DECLINE: Time spent Total time 50 minutes; >50% face to face with patient and/or family, providing counselling regarding plans and recommendations, and in care coordination with his/her medical teams. Majority of time spent on med mangament and case managment with improved control I also spent an additional [ ] minutes counseling for advanced care planning with the patient/the patients family/the surrogate decision maker. copies to: Pat Phipps MD; Lizzy Curry MD, Deborah A MD Jul 06, 2016 09:28
[2016-07-06] MEDS: HYDROmorphone PCA 0.2 mg/mL 30 mL Inj IV PRN ×2 (09:32→16:27)
[2016-07-06] MEDS: HYDROmorphone 0.5 mg/0.5 mL iSecure Syringe IVPUSH PRN ×3 (09:37→21:53)
--- NOTE | 2016-07-06 09:40 | DRSVH ---
PROCEDURE: US VEINOUS LEG DUPLEX UNILATERAL, RIGHT INDICATIONS: swelling, pain, CA ro DVT TECHNIQUE: Real-time imaging, as well as color and pulse Doppler interrogation, were performed of the lower extr emity deep veins from the inguinal ligament to the popliteal fossa. COMPARISON: [facility], CR, XR CHEST 1VW (PORTABLE), 06/17/2016, 16:59. FINDINGS: The deep veins are normally compressible, and free of intraluminal thrombus. Color and pu lse Doppler demonstrate normal phasic intraluminal flow. There is normal augmentation response to di stal compression maneuver. IMPRESSION: No deep venous thrombosis identified within the right lower extremity. Dictated by: Victorino Long RRSid Interpreted: Hakeem Curry MD on 07/06/2016 at 9:39 Transcribed by: ELTON on 07/06/2016 at 9:40 Approved by: Hakeem Curry M.D. on 07/06/2016 at 10:52
[2016-07-06] MEDS ORDERED: Lidocaine 2% 6mL Topical Jelly TOPICAL ONE (21:30)
[2016-07-06 22:28] LABS: Mean Corpuscular Hemoglobin 28.9 pg (27.0-35.0); Mean Corpuscular Volume 88.7 fL (81-100); Platelet Count 221 bil/L (150-400)
[2016-07-06 22:54] LABS: BASOPHILS % (AUTO) 1 % (0-3); EOSINOPHILS % (AUTO) 3 % (0-5); MONOCYTES % (AUTO) 10 % (4-12); NEUTROPHILS % (AUTO) 55 % (40-74)
[2016-07-07] VITALS (12 sets, daily range): BP systolic 107–123; BP diastolic 63–76; PULSE 91–101; RESP 15–20; O2SAT 92–97
[2016-07-07] MEDS: Heparin 5,000 Unit/mL Inj SUBQ SCH ×3 (00:41→18:36)
[2016-07-07] MEDS: HYDROmorphone PCA 0.2 mg/mL 30 mL Inj IV PRN ×6 (00:41→23:22)
[2016-07-07] MEDS: Lidocaine 5% 35.5 Gm Ointment TOPICAL PRN (01:08)
[2016-07-07] MEDS: Dextrose 5% 500 ML IV SCH (02:02)
[2016-07-07] MEDS: Insulin LISPRO 300 Unit/3 mL Inj SUBQ SCH ×4 (06:20→21:43)
--- NOTE | 2016-07-07 07:40 | PCM.PALLBR ---
Palliative Care Recommendation Summary of palliative recommendations: 07/07/16-Pain- not adequately controlled. On 180 mg of MS ER as well as 25 mg IV hydromorphone past 24 hour. Consider changing over to methadone after checking QT- calculated dose would be 38 mg per day 02/12 and 33% reduction- (10 mg Q 8HR). We will monitor pain and medication dosing due to improved status with larger catheter and adjust meds tomorrow rather than today He is willing to switch to methadone if needed. In mean time, CARD DEALER is increased based on protocol. Bladder spasm-could use urology input. Back on oxybutynin. Way better with new larger Thakkar that is draining well. Seen by urology but no change in plans Bladder CA- due for his chemo-seen by with plans to restart chemotherapy tomorrow. -Symptom management (Pain/other) Pain- seems to be primarily spasm. Of interest is that his bladder scan seems to indicate 200-400 cc of retention despite thakkar and irrigation. His oxybutynin had been d/brenda on admit so will try restarting that-5 mg PO TID He dd not find B&O supp to be of any help. He will continue on MS ER 60 mg TID and added HM CARD DEALER. Suspect he needs fair dosing of CARD DEALER for control Depression- adjustment -DPOA/Advanced Directives/POLST-Full code DPOAHC is his - Additional Medical Diagnoses with primary management by Hospitalist team include : Problems: End of Life Preferences full code Goals of Care Goals of care continue to be chemotherapy and then radical cystectomy and prostatectomy Disposition home at discharge Resuscitation Status Resuscitation Status: CPR: Attempt Resuscitation . Pain: Severe Symptom management: Depression, Pain Total time 45 minutes; >50% face to face with patient and/or family, providing counselling regarding plans and recommendations, and in care coordination with his/her medical teams. Majority of time spent [id number] as well as with med management., Discussion with urology as well as oncology. I also spent an additional [ ] minutes counseling for advanced care planning with the patient/the patients family/the surrogate decision maker. copies to: Pat Phipps MD Palliative Brief Note Date of Service Jul 07, 2016 . Pain not controlled over night and thakkar obstructed. Now replaced with ability to irrigate and much better pain control. Seen by Dr. Hines this AM-he directed the change in thakkar last PM. Now afternoon with Thakkar functioning-pain remains fairly well controlled at a range of 3-4. Ethel Romero MD Jul 07, 2016 07:40
[2016-07-07] MEDS: Polyethylene Glycol (PEG) 17 Gm Powder PO SCH (08:30)
--- NOTE | 2016-07-07 08:38 | CONS ---
[address] [address] CONSULTATION REPORT PATIENT: DIANA CROWELL : 1965 MR#: [id number] ADMIT: 07/06/2016 JOB ID: [id number] DATE OF SERVICE: 07/07/2016 REQUESTING PHYSICIAN: Denis Hines MD HISTORY OF PRESENT ILLNESS: This is a 51-year-old gentleman with a history of high-grade regionally invasive bladder carcinoma with associated hydronephrosis upon presentation June 10, 2016. In that admission, he underwent transurethral resection of bladder tumor by Dr. Lizzy Curry, which apparently was complicated by uncontrolled bleeding. The tumor was not resected completely. He subsequently had an arrest and subsequent successful code, and received 15 units of packed red blood cells, in addition to FFP and cryoprecipitate. He was ultimately discharged on June 27, 2016. His medical oncologist is Dr. Phipps. He underwent MVAC in hospital on June 22 and , with subsequent Neupogen support. He presented on the evening of July 05, 2016, with intractable pelvic and bladder pain. A 3-way Weathers catheter was apparently placed, and report was no clots were seen. He apparently had irrigation orders thereafter by medical service. I was contacted at [phone] last night by the hospitalist for consultation request. I subsequently spoke with Airam, the staff nurse on duty, and gave her careful detailed instruction on removal of the existing catheter and replacement with a hematuria catheter. Since then, his urine has been clear without any evidence of blood or clot at a low drip rate. He reports that he is comfortable. ALLERGIES, PAST MEDICAL, SURGICAL, SOCIAL, FAMILY, REVIEW OF SYSTEMS: Otherwise unchanged and in agreement per admission note by Dr. Denis Hines. IMPRESSION: Regionally advanced high-grade carcinoma of the bladder. PLAN: 1. Leave 3-way Weathers indwelling and irrigate as needed with normal saline. 2. I will contact [facility] and make them aware of the patient's re-admission.
[2016-07-07] MEDS: Morphine ER 30 mg (MS Contin) Tablet PO SCH ×3 (08:55→20:08)
--- NOTE | 2016-07-07 16:25 | PCM.PNSURG ---
Subjective Date of Service: Jul 07, 2016 Date of Service: Jul 07, 2016 Visit Information: Reason for Visit Urinary Retention,Intractable Pain, Surgery/Surgery Date Post-Op Day # Date of Admission: Jul 06, 2016 at 01:37 Hospital Day # Subjective: Pt is in pain at time of visit, however reports pain much better controlled and states significant improvement in pain since catheter irrigation and change this morning Postop General: No Shortness of Breath, No Chest Pain Objective Vital Sign- Last 8 Hours Date Time Temp Pulse Resp B/P Pulse Ox O2 Delivery O2 Flow Rate FiO2 07/07/16 16:13 36.7 92 15 123/76 95 Nasal Cannula 3.00 07/07/16 10:59 36.6 94 19 118/73 95 Nasal Cannula 3.00 07/07/16 09:28 99 07/07/16 09:12 Supplement Oxygen Intake and Output- Last 8 Hour 07/07/16 Cumulative From/Thru 07:00 07/05/16 20:32 - 07/07/16 06:40 Intake Total 770 ml 1991 ml Output Total 1250 ml 7450 ml Balance -480 ml -5459 ml Intake Oral 550 ml 1377 ml IV Total 220 ml 614 ml Output Urine Total 1250 ml 7450 ml # Bowel Movements 0 0 General: Alert Neck: Supple Lungs: Normal Air Movement Abdomen: Soft Extremities: Distal Pulses Palpable Neuro: Grossly Neurologically Intact Catheters: 3 Way Irrigation Result Diagram: 07/06/16219907/06/162199 Assessment & Plan Impression Pt is a pleasant 51YOM known to our service for PMH of high grade regionally invasive bladder carcinoma with associated hydronephrosis. Initial presentation 06/10/16, s/p TURBT by Dr. Lizzy Curry. There were some complications post operatively including uncontrolled bleeding, requiring 15 units of PRBC's in addition to FFP and cryoprecipitate. He recieved his first dose of chemotherapy during last admission, oncologist is Dr. Phipps. He presented back to the ER on 07/05/16 with intractable pelvic and bladder pain. A 3-way Weathers catheter was initially placed, however unfortunately developed clot retention and therefore Dr. Hines instructed the RN to change to a hematuria catheter with CBI prn. Urine has been mostly clear since, with some mucus however no anand blood. PLAN: 1. Leave 3-way Weathers indwelling and irrigate as needed with normal saline. 2. Urology will continue to follow as needed. 3. I have contacted oncology regarding next chemotherapy, as he was scheduled to have second treatment yesterday. He will see the patient in the hospital today. Problems: VTE Prophylaxis: Sub-Q Heparin (Unfractionated) Resuscitation Status: CPR: Attempt Resuscitation Paulina Duran PA-C Jul 07, 2016 16:25
--- NOTE | 2016-07-07 17:00 | PCM.PNMED ---
Subjective Date of Service Jul 07, 2016 Subjective Had a rough night las night but much improved after changing of Weathers cath per urology overnight. Denies any other new issues/complaints. Exam Vital Signs Vital Sign - Last Date Time Temp Pulse Resp B/P Pulse Ox O2 Delivery O2 Flow Rate FiO2 07/07/16 16:13 36.7 92 15 123/76 95 Nasal Cannula 3.00 Intake and Output 07/06/16 07/06/16 07/07/16 Cumulative From/Thru 15:00 23:00 07:00 07/05/16 20:32 - 07/07/16 06:40 Intake Total 1071 ml 770 ml 1991 ml Output Total 1350 ml 1250 ml 7450 ml Balance -279 ml -480 ml -5459 ml Intake Oral 677 ml 550 ml 1377 ml IV Total 394 ml 220 ml 614 ml Output Urine Total 1350 ml 1250 ml 7450 ml # Bowel Movements 0 0 General: Alert, Oriented X3, Cooperative Head: Normal Eyes: Scleral Anicteric Nose: Mucous Membr Moist/[place] Mouth: Mucous Membr Moist/[place] Neck: Supple Chest & Lungs: Chest Wall Normal, Clear to auscultation & percussion Cardiovascular: Regular Rate/Rhythm Abdomen: Non-tender, Non-distended, Normoactive bowel tones, Soft Extremities: Edema (1+ edema in LE bilat) Neurological: Grossly Neurologically Intact, Normal Speech IVs and Medications Medications Reviewed: Medications were reviewed in detail Lab and Diagnostics Result Diagram: 07/06/16219907/06/162199 Assessment & Plan 51-year-old gentleman with an unfortunate history of high grade papillary urothelial carcinoma s/p incomplete TURBT, DM2, and hyperlipidemia, that presented [facility] with intractable pain refractory to oral medications secondary to malignancy, with associated right lower extremity swelling and redness, and urinary retention. # Intractable pain refractory to oral medications secondary to malignancy, acute , present on admission. - Improved after change of Weathers cath on 07/06 - Appreciate palliative care consult. Will followup with recommendations - Continue with IV Dilaudid SAP TRAINER and try to transition to oral equivalent soon - Continue with oral MS Contin # High-grade papillary urothelial carcinoma status post incomplete TURBT, chronic. - Incomplete TURBT 05/2016 - Appreciate urology consult. Will followup with recommendations - Leave 3-way Weathers indwelling and irrigate as needed with normal saline. - Call to oncology (Dr. Phipps) placed and awaiting call back and recommendations. # Right lower extremity swelling and erythema, acute, present on admission. Ongoing - US duplex 07/05: No DVT - ASO titer, PCT; unlikely infectious - No antibiotics at this time # Diabetes mellitus, type II, chronic. Presumed stable - HbA1c 06/2016: 6.2 - Low-dose correctional in place at this time # Weakness, acute, present on admission. Ongoing - Likely secondary to chemotherapy effects - Physical therapy evaluation # Constipation, acute, present on admission. Under therapy - Likely secondary to opioid regimen - Miralax scheduled at this time; once regularity achieved, transition to as needed or remain as scheduled Dispo: 2-3 days GI Prophylaxis: Not indicated VTE Prophylaxis: Sub-Q Heparin (Unfractionated) VTE Mechanical Devices: Intermittant Pneumatic CD Resuscitation Status: CPR: Attempt Resuscitation Kb Rae Jul 07, 2016 17:00 VTE Prophylaxis: Sub-Q Heparin (Unfractionated) VTE Mechanical Devices: Intermittant Pneumatic CD Resuscitation Status: CPR: Attempt Resuscitation Kb Rae Jul 07, 2016 17:00
--- NOTE | 2016-07-07 18:07 | PROG NOTE ---
[address] [address] PROGRESS NOTE PATIENT: DIANA CROWELL : 1965 MR#: [id number] ADMIT: 07/06/2016 JOB ID: [id number] DATE: 07/07/2016 DIAGNOSES: 1. Large muscle invasive high-grade bladder urothelial carcinoma. 2. Current readmission for recurrent bladder outlet obstruction, associated with severe pain. HISTORY OF PRESENT ILLNESS: The patient is a very pleasant, 51-year-old, lifetime nonsmoker gentleman, with recent diagnosis of large high-grade muscle invasive bladder urothelial carcinoma (his incomplete TURBT did not show definite muscle invasion, but clinically we feel that this is a muscle invasive tumor). The patient was recently admitted from June 10 to June 27. During that admission, he underwent an incomplete TURBT, after which he was coded and was placed on the ventilator. He needed numerous units of blood transfusion as well as platelets and FFP to stop severe hematuria. During hospital admission, he received first cycle of neoadjuvant dose-dense MVAC. He was scheduled as an outpatient to start cycle two yesterday July 06, but has been readmitted to hospital. My understanding of his previous discharge plan was to go home with a Weathers catheter in place, but apparently Weathers was removed prior to discharge. He says after discharge he was doing well for a few days and his pain was under control. Then, his obstructive urinary symptoms gradually increased and got to a point that he was not able to urinate. He was having severe pain. A three-way Weathers catheter was placed in the ED and bladder irrigation was started. There were no blood clots. The catheter was switched out to a larger-bore catheter last night, and he continues to receive bladder irrigation. Currently, his urine is clear. SUBJECTIVE: Currently complains of feeling exhausted. He continues to have intermittent severe pain in the bladder area. OBJECTIVE: Appears very tired and somewhat drowsy. Blood pressure 123/76, heart rate 92, temperature afebrile, O2 saturation 95% on 3 L. LABORATORY DATA: Hemoglobin is stable but low at 8.2. Renal function is normal with creatinine 0.62 as of yesterday. A lumbar spine MRI was obtained two days ago, which is negative for evidence of metastatic disease. IMPRESSION AND PLAN: This patient is readmitted with recurrent bladder outlet obstruction, but now the Weathers has been replaced and he is receiving continuous bladder irrigation. Hematuria does not seem to be a problem this admission. He was scheduled for cycle two of neoadjuvant dose-dense MVAC yesterday. We will start this tomorrow. This is a two day regimen. Day one is only IV methotrexate. On day two, he will receive cisplatin, vinblastine and Adriamycin. He has a Port-A-Cath which will be used for administration of chemotherapy. His pain appears to be coming in waves of spasm-like severe pain in the bladder area. Dr. Romero is working with him on adjusting his pain regimen. I will follow along on a daily basis.
[2016-07-07] MEDS ORDERED: Sodium Chloride LOK Flush 10 mL Syringe IVFLUSH PRN ×2 (19:55)
[2016-07-07] MEDS: LORazepam 1 mg Tablet PO PRN (20:08)
[2016-07-07] MEDS: HYDROmorphone 0.5 mg/0.5 mL iSecure Syringe IVPUSH PRN (20:40)
[2016-07-08] VITALS (11 sets, daily range): BP systolic 114–148; BP diastolic 68–80; PULSE 78–96; RESP 16–18; O2SAT 95–98
[2016-07-08] MEDS: Heparin 5,000 Unit/mL Inj SUBQ SCH ×4 (00:21→23:50)
[2016-07-08] MEDS: Dextrose 5% 500 ML IV SCH (03:24)
[2016-07-08] MEDS: HYDROmorphone PCA 0.2 mg/mL 30 mL Inj IV PRN ×3 (05:21→19:34)
[2016-07-08 05:42] LABS: Mean Corpuscular Hemoglobin 28.9 pg (27.0-35.0); Mean Corpuscular Volume 88.1 fL (81-100)
[2016-07-08] MEDS: Morphine ER 30 mg (MS Contin) Tablet PO SCH ×3 (08:37→23:50)
[2016-07-08] MEDS: Polyethylene Glycol (PEG) 17 Gm Powder PO SCH ×2 (08:37→20:10)
[2016-07-08] MEDS: Insulin LISPRO 300 Unit/3 mL Inj SUBQ SCH ×4 (08:40→22:05)
[2016-07-08] MEDS ORDERED: Belladonna Alk-Opium 60 mg Rectal Suppository RECTAL PRN (09:20)
--- NOTE | 2016-07-08 11:56 | PCM.PALLBR ---
Palliative Care Recommendation Pleasant 51-year-old gentleman with muscle invasive urothelial carcinoma, admitted with recurrent intractable pain. Palliative medicine consulted to assist with symptom management Summary of palliative recommendations: -Symptom management (Pain/other) Pain- significantly improved today. Seemed to be primarily spasms earlier. Of interest is that his bladder scan seems to indicate 200-400 cc of retention despite thakkar and irrigation. Overall symptoms much improved since Thakkar catheter replaced- Thakkar catheter should remain in place until explicitly ordered otherwise by urology and oncology Continue oxybutynin 5 mg PO TID Questionable benefit of B&O supp earlier but he noted he would be willing to retrial- ordered prn Continue MS ER 60 mg Q8 hr as well as hydromorphone GAGE MAKER. Restart oral hydromorphone, 2-4 mg Q3 hr prn and begin weaning to this from GAGE MAKER (though will relieve GAGE MAKER available for now in case he has intractable breakthrough discomfort ) As his pain is better controlled today, will not attempt to transition to methadone Anxiety- continue lorazepam prn Constipation- increase scheduled MiraLAX to twice daily; start senna scheduled twice daily -DPOA/Advanced Directives/POLST-Full code; DPOAHC is his Additional Medical Diagnoses with primary management by Hospitalist team include : # Intractable pain refractory to oral medications secondary to malignancy, acute , present on admission. 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 # Right lower extremity swelling and erythema, acute, present on admission. Ongoing # Diabetes mellitus, type II, chronic. Presumed stable # Weakness, acute, present on admission. Ongoing # Constipation, acute, present on admission. Under therapy Problems: End of Life Preferences full code Goals of Care Goals of care continue to be chemotherapy and then radical cystectomy and prostatectomy Disposition home at discharge Resuscitation Status Resuscitation Status: CPR: Attempt Resuscitation . Pain: Mild Symptom management: Anxiety, Pain Total time 40 minutes; >50% face to face with patient, providing counselling regarding plans and recommendations, and in care coordination with his medical teams. Palliative Brief Note Date of Service Jul 08, 2016 . Returned to reevaluate patient. Prior to visiting, reviewed his updated records in the EMR in detail, spoke with his bedside nurse and received signout from other palliative providers. On my arrival, he is lying in bed, appears comfortable. He says that he had a much better night and his pain control is much improved. No further severe spasms. Doing much better with Thakkar catheter replacement and we talked about making sure that this remains in on the last he is explicitly told that it should be removed by his urologist and oncologist. Today he starts his next cycle of chemotherapy. Reviewed his current pain medications. He continues to use the GAGE MAKER regularly. Is also receiving his sustained release morphine. We talked about restarting his oral Dilaudid for breakthrough pain and beginning the process of weaning off of GAGE MAKER and he was comfortable with that. Offered B and O suppositories for bladder spasms- he notes that during previous hospitalization these worked indifferently but he is willing to try them again if spasms recur. Brief exam is stable and unchanged from previous. Thomas Naqvi MD Jul 08, 2016 11:56
[2016-07-08] MEDS ORDERED: Dexamethasone Inj 10 MG in 0.9% Sodium Chloride 50 ML IV ONE (13:30)
[2016-07-08] MEDS ORDERED: METHOTREXATE IV ONE (14:30)
[2016-07-08] MEDS ORDERED: [UNRECOGNIZED DRUG - OTHER] IV ONE (14:30)
[2016-07-08] MEDS ORDERED: 0.9% Sodium Chloride 500 ML IV ONE (14:30)
--- NOTE | 2016-07-08 15:14 | PCM.PNMED ---
Subjective Date of Service Jul 08, 2016 Subjective Denies any other new issues/complaints. Exam Vital Signs Vital Sign - Last Date Time Temp Pulse Resp B/P Pulse Ox O2 Delivery O2 Flow Rate FiO2 07/08/16 13:02 Supplement Oxygen 07/08/16 12:28 36.8 91 16 148/79 97 3.00 Intake and Output 07/07/16 07/07/16 07/08/16 Cumulative From/Thru 15:00 23:00 07:00 07/05/16 20:32 - 07/08/16 06:34 Intake Total 1656 ml 628 ml 4275 ml Output Total 2075 ml 450 ml 9975 ml Balance -419 ml 178 ml -5700 ml Intake Oral 1422 ml 400 ml 3199 ml IV Total 234 ml 228 ml 1076 ml Output Urine Total 2075 ml 450 ml 9975 ml # Bowel Movements 0 Exam General: Alert, Cooperative, NAD Head: Normal Eyes: Scleral Anicteric Nose: Mucous Membr Moist/[place] Mouth: Mucous Membr Moist/[place] Neck: Supple Chest & Lungs: Chest Wall Normal, Clear to auscultation bilat Cardiovascular: Regular Rate/Rhythm Abdomen: Non-tender, Non-distended, Normoactive bowel tones, Soft Extremities: Edema (1+ edema in LE bilat) Neurological: Grossly Neurologically Intact, Normal Speech IVs and Medications Medications Reviewed: Medications were reviewed in detail Lab and Diagnostics Result Diagram: 07/08/1652907/08/16529 Assessment & Plan 51-year-old gentleman with an unfortunate history of high grade papillary urothelial carcinoma s/p incomplete TURBT, DM2, and hyperlipidemia, that presented to [facility] with intractable pain refractory to oral medications secondary to malignancy, with associated right lower extremity swelling and redness, and urinary retention. # Intractable pain refractory to oral medications secondary to malignancy, acute , present on admission. - Improved after change of Weathers cath on 07/06 - Appreciate palliative care consult. Will followup with recommendations - Continue with IV Dilaudid TYPING BOOKKEEPER and try to transition to oral equivalent soon - Continue with oral MS Contin # High-grade papillary urothelial carcinoma status post incomplete TURBT, chronic. - Incomplete TURBT 05/2016 - Appreciate urology and oncology consults. Will followup with recommendations - Plan to start chemotherapy today: - Day one: only IV methotrexate. - Day two: cisplatin, vinblastine and Adriamycin. - Leave 3-way Weathers indwelling and irrigate as needed with normal saline. # Right lower extremity swelling and erythema, acute, present on admission. Ongoing - US duplex 07/05: No DVT - ASO titer, PCT; unlikely infectious - No antibiotics at this time # Diabetes mellitus, type II, chronic. Presumed stable - HbA1c 06/2016: 6.2 - Low-dose correctional in place at this time # Weakness, acute, present on admission. Ongoing - Likely secondary to chemotherapy effects - Physical therapy evaluation # Constipation, acute, present on admission. Under therapy - Likely secondary to opioid regimen Dispo: 2-3 days GI Prophylaxis: Not indicated VTE Prophylaxis: Sub-Q Heparin (Unfractionated) VTE Mechanical Devices: Intermittant Pneumatic CD Resuscitation Status: CPR: Attempt Resuscitation Kb Rae Jul 08, 2016 15:13
[2016-07-08] MEDS: LORazepam 1 mg Tablet PO PRN (20:10)
[2016-07-09] VITALS (14 sets, daily range): BP systolic 98–145; BP diastolic 61–91; PULSE 71–100; RESP 14–18; O2SAT 96–99
[2016-07-09] MEDS: HYDROmorphone PCA 0.2 mg/mL 30 mL Inj IV PRN ×2 (00:51→08:02)
[2016-07-09] MEDS: Dextrose 5% 500 ML IV SCH ×2 (04:26→18:03)
[2016-07-09] MEDS: Insulin LISPRO 300 Unit/3 mL Inj SUBQ SCH ×4 (08:24→22:39)
[2016-07-09] MEDS: Polyethylene Glycol (PEG) 17 Gm Powder PO SCH ×2 (08:29→21:11)
[2016-07-09] MEDS: Heparin 5,000 Unit/mL Inj SUBQ SCH ×2 (08:29→16:59)
[2016-07-09] MEDS: Morphine ER 30 mg (MS Contin) Tablet PO SCH ×2 (08:33→17:00)
[2016-07-09 08:34] LABS: Mean Corpuscular Hemoglobin 28.9 pg (27.0-35.0); Mean Corpuscular Volume 86.6 fL (81-100)
[2016-07-09] MEDS: Lidocaine 5% 35.5 Gm Ointment TOPICAL PRN ×2 (08:34→22:34)
[2016-07-09 08:55] LABS: Magnesium 1.9 mg/dL (1.6-2.6)
--- NOTE | 2016-07-09 12:17 | PCM.PALLBR ---
Palliative Care Recommendation Pleasant 51-year-old gentleman with muscle invasive urothelial carcinoma, admitted with recurrent intractable pain. Palliative medicine consulted to assist with symptom management He would likely benefit from outpatient palliative follow-up after discharge, for general support as well as symptom management. Dr. Phipps to request such consultation if he agrees. Summary of palliative recommendations: -Symptom management (Pain/other) Pain- continues to do well. Worst problem seemed to be bladder spasms earlier. Overall symptoms much improved since Weathers catheter replaced- Weathers catheter should remain in place unless explicitly ordered otherwise by urology and oncology Continue MS ER, but increase scheduled dose to 90 mg Q8 hr. Continue hydromorphone INSTRUCTOR PAINTING but encouraged him to try to use oral hydromorphone for breakthrough pain. Oral hydromorphone, 2-4 mg Q3 hr prn and begin weaning to this from INSTRUCTOR PAINTING (though will continue to have INSTRUCTOR PAINTING available in case he has intractable breakthrough discomfort). Plan was reviewed explicitly with his nurse. Anxiety- continue lorazepam prn Constipation-continue MiraLAX and senna scheduled twice daily Continue oxybutynin 5 mg PO TID Questionable benefit of B&O supp earlier but he noted he would be willing to retrial- ordered prn -DPOA/Advanced Directives/POLST-Full code; DPOAHC is his Additional Medical Diagnoses with primary management by Hospitalist team include : # Intractable pain refractory to oral medications secondary to malignancy, acute , present on admission. 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 # Right lower extremity swelling and erythema, acute, present on admission. Ongoing # Diabetes mellitus, type II, chronic. Presumed stable # Weakness, acute, present on admission. Ongoing # Constipation, acute, present on admission. Under therapy Problems: End of Life Preferences full code Goals of Care Goals of care continue to be chemotherapy and then radical cystectomy and prostatectomy Disposition home at discharge Resuscitation Status Resuscitation Status: CPR: Attempt Resuscitation . Pain: Mild Symptom management: Pain Total time 35 minutes; >50% face to face with patient, providing counselling regarding plans and recommendations, and in care coordination with his medical teams. copies to: Pat Phipps MD; Fausto Salvador MD Palliative Brief Note Date of Service Jul 09, 2016 . Returned to reevaluate patient. Prior to visiting, reviewed his updated records in the EMR in detail and spoke with his bedside nurse. Reviewed his medication usage over the last 24 hours. Unfortunately, he did not receive any oral Dilaudid for his breakthrough pain, but continued to rely on the INSTRUCTOR PAINTING. Reviewed his use of IV Dilaudid and calculated morphine equivalent dosage. When I arrived, he is lying in bed, in no distress. He says he had a good night with some good sleep. Pain control is adequate, usually on 3-4/10 scale. No dyspnea, nausea, other problems. Exam is stable and unchanged today. Thomas Naqvi MD Jul 09, 2016 12:17
[2016-07-09 12:20] LABS: BASOPHILS % (AUTO) 0 % (0-3); EOSINOPHILS % (AUTO) 0 % (0-5); MONOCYTES % (AUTO) 4 % (4-12); NEUTROPHILS % (AUTO) 82 % (40-74)
[2016-07-09] MEDS ORDERED: SODIUM CHLORIDE IV ONE ×2 (13:30)
[2016-07-09] MEDS ORDERED: FOSAPREPITANT IV ONE ×2 (13:30)
[2016-07-09] MEDS ORDERED: Dexamethasone Inj 10 MG in 0.9% Sodium Chloride 50 ML IV ONE (13:30)
[2016-07-09] MEDS ORDERED: Palonosetron 0.05 mg/mL 5 mL Inj IV ONE (13:30)
[2016-07-09] MEDS ORDERED: MANNITOL IV ONE ×5 (14:30)
[2016-07-09] MEDS ORDERED: 0.9% Sodium Chloride 1,000 ML IV ONE (14:30)
[2016-07-09] MEDS ORDERED: [UNRECOGNIZED DRUG - OTHER] IV ONE ×5 (14:30)
[2016-07-09] MEDS ORDERED: VINBLASTINE IV ONE (14:30)
[2016-07-09] MEDS ORDERED: CISPLATIN IV ONE ×5 (14:30)
[2016-07-09] MEDS ORDERED: DOXORUBICIN IV ONE (14:30)
--- NOTE | 2016-07-09 15:23 | PCM.PNMED ---
Subjective Date of Service Jul 09, 2016 Subjective Denies any other new issues/complaints. Exam Vital Signs Vital Sign - Last Date Time Temp Pulse Resp B/P Pulse Ox O2 Delivery O2 Flow Rate FiO2 07/09/16 15:16 36.6 80 16 127/79 99 Nasal Cannula 3.00 Intake and Output 07/08/16 07/08/16 07/09/16 Cumulative From/Thru 15:00 23:00 07:00 07/05/16 20:32 - 07/09/16 06:53 Intake Total 1673 ml 1024 ml 6972 ml Output Total 1000 ml 1700 ml 28782 ml Balance 673 ml -676 ml -5703 ml Intake Oral 800 ml 800 ml 4799 ml IV Total 873 ml 224 ml 2173 ml Output Urine Total 1000 ml 1700 ml 55811 ml # Bowel Movements 0 Exam General: Alert, Cooperative, NAD Head: Normal Eyes: Scleral Anicteric Nose: Mucous Membr Moist/[place] Mouth: Mucous Membr Moist/[place] Neck: Supple Chest & Lungs: Chest Wall Normal, Clear to auscultation bilat Cardiovascular: Regular Rate/Rhythm Abdomen: Non-tender, Non-distended, Normoactive bowel tones, Soft Extremities: Edema (1+ edema in LE bilat) Neurological: Grossly Neurologically Intact, Normal Speech IVs and Medications Medications Reviewed: Medications were reviewed in detail Lab and Diagnostics Result Diagram: 07/09/1681407/09/16814 Assessment & Plan 51-year-old gentleman with an unfortunate history of high grade papillary urothelial carcinoma s/p incomplete TURBT, DM2, and hyperlipidemia, that presented to [facility] with intractable pain refractory to oral medications secondary to malignancy, with associated right lower extremity swelling and redness, and urinary retention. # Intractable pain refractory to oral medications secondary to malignancy, acute , present on admission. - Improved after change of Weathers cath on 07/06 - Appreciate palliative care consult. Will followup with recommendations - Continue with IV Dilaudid REINFORCER and try to transition to oral equivalent soon - Continue with oral MS Contin # High-grade papillary urothelial carcinoma status post incomplete TURBT, chronic. - Incomplete TURBT 05/2016 - Appreciate urology and oncology consults. Will followup with recommendations - Undergoing chemotherapy: - Day one 07/08: only IV methotrexate. - Day two 07/09: cisplatin, vinblastine and Adriamycin. - Leave 3-way Weathers indwelling and irrigate as needed with normal saline. # Right lower extremity swelling and erythema, acute, present on admission. Ongoing - US duplex 07/05: No DVT - ASO titer, PCT; unlikely infectious - No antibiotics at this time # Diabetes mellitus, type II, chronic. Presumed stable - HbA1c 06/2016: 6.2 - Low-dose correctional in place at this time # Weakness, acute, present on admission. Ongoing - Likely secondary to chemotherapy effects - Physical therapy evaluation # Constipation, acute, present on admission. Under therapy - Likely secondary to opioid regimen Dispo: 1-2 days GI Prophylaxis: Not indicated VTE Prophylaxis: Sub-Q Heparin (Unfractionated) VTE Mechanical Devices: Intermittant Pneumatic CD Resuscitation Status: CPR: Attempt Resuscitation Kb Rae Jul 09, 2016 15:23
--- NOTE | 2016-07-09 18:48 | PROG NOTE ---
[address] [address] PROGRESS NOTE PATIENT: DIANA CROWELL : 1965 MR#: [id number] ADMIT: 07/06/2016 JOB ID: [id number] DATE: 07/09/2016 SUBJECTIVE: Today, he reports improvement in his pain. He is being transitioned from IV Dilaudid PROGRAM SERVICES PLANNER to oral Dilaudid, and has not needed to use PROGRAM SERVICES PLANNER for the last couple of hours. There has not been any problem with hematuria this admission. His urine has been clear to only slightly pinkish. He is very much hoping to be home for the weekend. OBJECTIVE: Very pleasant man, in good spirits and in no discomfort. Blood pressure 142/81, heart rate 71, temperature afebrile. O2 saturation 97% on nasal cannula. LABORATORY DATA: Hemoglobin stable at 8.6. The rest of CBC and basic metabolic profile are normal. PLAN: 1. The patient is completing cycle two of neoadjuvant dose-dense MVAC today. 2. He has Neupogen injections at home, and I instructed him to start seven days of Neupogen at 480 mcg subcutaneously daily, starting Wednesday, July 11. 3. I would recommend discharge with Weathers catheter in place. The whole reason for this admission was clot retention, and therefore a Weathers catheter would be indicated, in my opinion, until we make sure his tumor is shrinking and responding to chemotherapy. 4. He is scheduled to start cycle three at our clinic in [facility] on July 20, and I will see him then. 5. I will set up later outpatient CT scan and office cystoscopy by Dr. Curry in the week of July 27 for assessment of response. 6. His pain regimen will be handled by Dr. Romero and Dr. Naqvi, and their assistance is much appreciated.
[2016-07-09] MEDS: HYDROmorphone 0.5 mg/0.5 mL iSecure Syringe IVPUSH PRN (22:35)
[2016-07-10] VITALS (10 sets, daily range): BP systolic 102–144; BP diastolic 65–89; PULSE 77–99; RESP 16–20; O2SAT 96–99
[2016-07-10] MEDS: Heparin 5,000 Unit/mL Inj SUBQ SCH ×3 (00:42→17:31)
[2016-07-10] MEDS: Morphine ER 30 mg (MS Contin) Tablet PO SCH ×3 (00:43→17:31)
[2016-07-10] MEDS: HYDROmorphone 0.5 mg/0.5 mL iSecure Syringe IVPUSH PRN (02:32)
[2016-07-10 04:38] LABS: BASOPHILS % (AUTO) 0.2 % (0-3); EOSINOPHILS % (AUTO) 0 % (0-5); MONOCYTES % (AUTO) 3.8 % (4-12); Mean Corpuscular Hemoglobin 28.8 pg (27.0-35.0); Mean Corpuscular Volume 86.3 fL (81-100); Platelet Count 301 bil/L (150-400)
[2016-07-10] MEDS: Polyethylene Glycol (PEG) 17 Gm Powder PO SCH ×2 (08:10→20:06)
[2016-07-10] MEDS: Insulin LISPRO 300 Unit/3 mL Inj SUBQ SCH ×4 (08:26→22:00)
[2016-07-10] MEDS: HYDROmorphone PCA 0.2 mg/mL 30 mL Inj IV PRN (09:41)
--- NOTE | 2016-07-10 12:50 | PCM.PNMED ---
Subjective Date of Service Jul 10, 2016 Subjective Patient seen and examined. Still having pain control issues. Denies any fever or chills overnight. Exam Vital Signs Vital Sign - Last Date Time Temp Pulse Resp B/P Pulse Ox O2 Delivery O2 Flow Rate FiO2 07/10/16 04:38 36.6 83 16 110/66 98 Nasal Cannula 3.00 Intake and Output 07/09/16 07/09/16 07/10/16 Cumulative From/Thru 15:00 23:00 07:00 07/05/16 20:32 - 07/10/16 06:49 Intake Total 2667 ml 1461 ml 24590 ml Output Total 1800 ml 2450 ml 95375 ml Balance 867 ml -989 ml -5825 ml Intake Oral 1320 ml 800 ml 6919 ml IV Total 1347 ml 661 ml 4181 ml Output Urine Total 1800 ml 2450 ml 70213 ml # Bowel Movements 1 1 Exam General: Alert, Oriented X3, Cooperative, No acute Distress Eyes: PERRLA, Scleral Anicteric Mouth: Mouth Normal, Mucous Membranes Moist/[place] Neck: Supple, no Thyromegaly, trachea central. Chest & Lungs: Clear to auscultation & percussion, No adventitious breath sounds, no crackles, no wheeze Cardiovascular: Normal S1, Normal S2, No Murmurs/Rubs/Gallops, Regular Rate/ Rhythm, (No JVD, no peripheral edema) Pulses: Radial (present and equal), Dorsalis Pedi (present and equal) Abdomen: Soft, Non-tender, Non-distended, Normoactive bowel tones. Musculoskeletal: Unremarkable. Normal range of motion, no swollen or erythematous joints Extremities: No edema, no cyanosis, no clubbing. Skin: No rashes. Warm and dry, no erythematous areas Neurological: Grossly neurologically intact, Normal Speech, Sensation Intact Lymphatic: Lymph nodes Cervical and Axillary not palpable. IVs and Medications Medications Reviewed: Medications were reviewed in detail Lab and Diagnostics Laboratory Tests Test 07/10/16 04:20 White Blood Count 8.2th/mm3 (3.8-10.1) Red Blood Count 2.92mil/mm3 (4.40-5.80) Hemoglobin 8.4g/dL (13.8-17.2) Hematocrit 25.2% (41.0-50.0) Mean Corpuscular Volume 86.3fL (81-100) Mean Corpuscular Hemoglobin 28.8pg (27.0-35.0) Mean Corpuscular Hemoglobin Concent 33.3% (32.0-37.0) Red Cell Distribution Width 13.8% (12.3-15.4) Platelet Count 301bil/L (150-400) Neutrophils (%) (Auto) 87.0% (40-74) Lymphocytes (%) (Auto) 7.8% (14-46) Monocytes (%) (Auto) 3.8% (4-12) Eosinophils (%) (Auto) 0% (0-5) Basophils (%) (Auto) 0.2% (0-3) Sodium Level 132mEq/L (134-144) Potassium Level 4.4mEq/L (3.5-5.2) Chloride Level 95mEq/L (97-108) Carbon Dioxide Level 25mmol/L (18-29) Blood Urea Nitrogen 17mg/dL (6-24) Creatinine 0.56mg/dL (0.76-1.27) Estimat Glomerular Filtration Rate 164mL/min (>59) Glucose Level 251mg/dL (60-99) Calcium Level 8.3mg/dL (8.5-10.1) Magnesium Level 2.0mg/dL (1.6-2.6) Total Bilirubin 0.3mg/dL (0.0-1.2) Aspartate Amino Transf (AST/SGOT) 37U/L (0-50) Alanine Aminotransferase (ALT/SGPT) 17U/L (0-44) Alkaline Phosphatase 144U/L (25-150) Total Protein 6.4g/dL (6.4-8.4) Albumin 3.1g/dL (3.4-5.0) Microbiology 07/05/16 Urine Culture - Final, Complete Mixed Urogenital Joann Result Diagram: 07/10/1641907/10/16419 Assessment & Plan 51-year-old gentleman with an unfortunate history of high grade papillary urothelial carcinoma s/p incomplete TURBT, DM2, and hyperlipidemia, that presented to [facility] with intractable pain refractory to oral medications secondary to malignancy, with associated right lower extremity swelling and redness, and urinary retention. 1 Intractable pain refractory to oral medications secondary to malignancy, acute , present on admission. 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 - Incomplete TURBT 05/2016 - Appreciate urology and oncology consults. Will followup with recommendations - Undergoing chemotherapy: - Day one 07/08: only IV methotrexate. - Day two 07/09: cisplatin, vinblastine and Adriamycin. - Leave 3-way Weathers indwelling and irrigate as needed with normal saline. - start seven days of Neupogen at 480 mcg subcutaneously daily, starting Wednesday, July 11. 3 Right lower extremity swelling and erythema, acute, present on admission. Ongoing - US duplex 07/05: No DVT - ASO titer, PCT; unlikely infectious - No antibiotics at this time 4 Diabetes mellitus, type II, chronic. Presumed stable - HbA1c 06/2016: 6.2. Not well controlled with BG >180 - continue high correction Lispro algorithm - consider adding Lantus if BG > 180 5 Weakness, acute, present on admission. Ongoing - Likely secondary to chemotherapy effects - plan to return home with 6 Constipation, acute, present on admission. Under therapy - Likely secondary to opioid regimen - continue laxative regimen - Acetaminophen as needed for mild pain/fever/headache - Bowel regimen as needed - Antiemetic as needed Patient admitted under inpatient status with expected length of stay > 2 midnights for severity of present symptoms, complexities of treatment plan and risk for adverse event . GI Prophylaxis: Not indicated VTE Prophylaxis: Sub-Q Heparin (Unfractionated) VTE Mechanical Devices: Intermittant Pneumatic CD Resuscitation Status: CPR: Attempt Resuscitation Denis Hines MD Jul 10, 2016 07:31
--- NOTE | 2016-07-10 13:03 | PCM.PALLBR ---
Palliative Care Recommendation Pleasant 51-year-old gentleman with muscle invasive urothelial carcinoma, admitted with recurrent intractable pain. Palliative medicine consulted to assist with symptom management Outpatient palliative followup scheduled for July 15 at 1430. Summary of palliative recommendations: -Symptom management (Pain/other) Pain- continues to do well. Worst problem seemed to be bladder spasms earlier. Overall symptoms much improved since Weathers catheter replaced- Weathers catheter should remain in place at discharge. Continue MS ER, but increased scheduled dose to 90 mg Q8 hr. 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 Oral hydromorphone, 2-4 mg Q3 hr prn and continue weaning to this from WOOD ENGRAVER (though will continue to have WOOD ENGRAVER available in case he has intractable breakthrough discomfort). Plan was reviewed explicitly with his nurse. Anxiety- continue lorazepam prn Constipation-continue MiraLAX and senna scheduled twice daily Continue oxybutynin 5 mg PO TID Questionable benefit of B&O supp earlier but he noted he would be willing to retrial- ordered prn -DPOA/Advanced Directives/POLST-Full code; DPOAHC is his Additional Medical Diagnoses with primary management by Hospitalist team include : # Intractable pain refractory to oral medications secondary to malignancy, acute , present on admission. 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 # Right lower extremity swelling and erythema, acute, present on admission. Ongoing # Diabetes mellitus, type II, chronic. Presumed stable # Weakness, acute, present on admission. Ongoing # Constipation, acute, present on admission. Under therapy Problems: End of Life Preferences full code Goals of Care Goals of care continue to be chemotherapy and then radical cystectomy and prostatectomy Disposition home at discharge Resuscitation Status Resuscitation Status: CPR: Attempt Resuscitation Total time 35 minutes; >50% face to face with patient, providing counselling regarding plans and recommendations, and in care coordination with his medical teams. Palliative Brief Note Date of Service Jul 10, 2016 . Reviewed events of night in EMR and with his RN. Notes OK pain control thru night- needed occasional IVP hydromorphone, but mostly OK with PO ER MS and hydromorphone. Does request WOOD ENGRAVER be continued today- anxious about recurrent pain. Plan is for DC Wednesday or Wednesday, per Dr. Phipps. No other symptoms or problems. Exam stable. Thomas Naqvi MD Jul 10, 2016 11:23
[2016-07-10] MEDS: 0.9% Sodium Chloride 1,000 ML IV SCH (15:17)
[2016-07-11] VITALS (9 sets, daily range): BP systolic 106–120; BP diastolic 65–73; PULSE 63–96; RESP 16–20; O2SAT 97–99
[2016-07-11] MEDS: Morphine ER 30 mg (MS Contin) Tablet PO SCH ×3 (00:29→18:26)
[2016-07-11] MEDS: 0.9% Sodium Chloride 1,000 ML IV SCH ×3 (00:51→21:26)
[2016-07-11] MEDS: Heparin 5,000 Unit/mL Inj SUBQ SCH ×3 (00:51→17:15)
[2016-07-11] MEDS: Polyethylene Glycol (PEG) 17 Gm Powder PO SCH ×2 (08:30→20:30)
[2016-07-11] MEDS: Insulin LISPRO 300 Unit/3 mL Inj SUBQ SCH ×4 (09:30→22:00)
[2016-07-11] MEDS: Filgrastim 480 mCg/1.6 mL Inj SUBQ SCH (11:35)
[2016-07-11] MEDS: HYDROmorphone PCA 0.2 mg/mL 30 mL Inj IV PRN (15:57)
--- NOTE | 2016-07-11 23:18 | PCM.PNMED ---
Subjective Date of Service Jul 11, 2016 Subjective Patient seen and examined. Finally feel better with good night sleep. Still having poor appetite. NO fever or chills. Pain better controlled Exam Vital Signs Vital Sign - Last Date Time Temp Pulse Resp B/P Pulse Ox O2 Delivery O2 Flow Rate FiO2 07/11/16 19:50 36.4 63 20 106/65 98 Nasal Cannula 2.00 Intake and Output 07/10/16 07/10/16 07/11/16 Cumulative From/Thru 15:00 23:00 07:00 07/05/16 20:32 - 07/11/16 06:49 Intake Total 338 ml 640 ml 49801 ml Output Total 2000 ml 1700 ml 68660 ml Balance -1662 ml -1060 ml -8547 ml Intake Oral 640 ml 7559 ml IV Total 338 ml 4519 ml Output Urine Total 2000 ml 1700 ml 18920 ml # Bowel Movements 0 1 Exam General: Alert, Oriented X3, Cooperative, No acute Distress Eyes: PERRLA, Scleral Anicteric Mouth: Mouth Normal, Mucous Membranes Moist/[place] Neck: Supple, no Thyromegaly, trachea central. Chest & Lungs: Clear to auscultation & percussion, No adventitious breath sounds, no crackles, no wheeze Cardiovascular: Normal S1, Normal S2, No Murmurs/Rubs/Gallops, Regular Rate/ Rhythm, (No JVD, no peripheral edema) Pulses: Radial (present and equal), Dorsalis Pedi (present and equal) Abdomen: Soft, Non-tender, Non-distended, Normoactive bowel tones. Musculoskeletal: Unremarkable. Normal range of motion, no swollen or erythematous joints Extremities: No edema, no cyanosis, no clubbing. Skin: No rashes. Warm and dry, no erythematous areas Neurological: Grossly neurologically intact, Normal Speech, Sensation Intact Lymphatic: Lymph nodes Cervical and Axillary not palpable. IVs and Medications Medications Reviewed: Medications were reviewed in detail Lab and Diagnostics Laboratory Tests Test 07/11/16 04:40 Hold Purple Top Tube Received (Received) Hold [place] Top Tube Received (Received) Microbiology 07/05/16 Urine Culture - Final, Complete Mixed Urogenital Joann Result Diagram: 07/10/1641907/10/16419 Assessment & Plan 51-year-old gentleman with an unfortunate history of high grade papillary urothelial carcinoma s/p incomplete TURBT, DM2, and hyperlipidemia, that presented to [facility] with intractable pain refractory to oral medications secondary to malignancy, with associated right lower extremity swelling and redness, and urinary retention. 1 Intractable pain refractory to oral medications secondary to malignancy, acute , present on admission. 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 - Incomplete TURBT 05/2016 - Appreciate urology and oncology consults. Will followup with recommendations - Undergoing chemotherapy: - Day one 07/08: only IV methotrexate. - Day two 07/09: cisplatin, vinblastine and Adriamycin. - Leave 3-way Weathers indwelling and irrigate as needed with normal saline. - start seven days of Neupogen at 480 mcg subcutaneously daily, starting July 11. 3 Right lower extremity swelling and erythema, acute, present on admission. Ongoing - US duplex 07/05: No DVT - ASO titer, PCT; unlikely infectious - No antibiotics at this time 4 Diabetes mellitus, type II, chronic. Presumed stable - HbA1c 06/2016: 6.2. Some improvement compared to yesterdays Blood glucose - continue high correction Lispro algorithm 5 Weakness, acute, present on admission. Ongoing - Likely secondary to chemotherapy effects - plan to return home with 6 Constipation, acute, present on admission. Under therapy - Likely secondary to opioid regimen - continue laxative regimen - Acetaminophen as needed for mild pain/fever/headache - Bowel regimen as needed - Antiemetic as needed Patient admitted under inpatient status with expected length of stay > 2 midnights for severity of present symptoms, complexities of treatment plan and risk for adverse event Anticipate discharge on Wednesday07/13/16 . GI Prophylaxis: Not indicated VTE Prophylaxis: Sub-Q Heparin (Unfractionated) VTE Mechanical Devices: Intermittant Pneumatic CD Resuscitation Status: CPR: Attempt Resuscitation Denis Hines MD Jul 11, 2016 23:18
[2016-07-12] VITALS (9 sets, daily range): BP systolic 104–113; BP diastolic 64–68; PULSE 93–97; RESP 16–20; O2SAT 97–99
[2016-07-12] MEDS: Morphine ER 30 mg (MS Contin) Tablet PO SCH ×3 (01:34→19:00)
[2016-07-12] MEDS: Heparin 5,000 Unit/mL Inj SUBQ SCH ×3 (01:37→17:08)
[2016-07-12] MEDS: HYDROmorphone PCA 0.2 mg/mL 30 mL Inj IV PRN ×2 (05:07→16:57)
[2016-07-12] MEDS: 0.9% Sodium Chloride 1,000 ML IV SCH ×2 (07:41→16:57)
[2016-07-12] MEDS: Ondansetron 2 mg/mL 2 mL Inj IVPUSH PRN ×3 (07:46→19:02)
[2016-07-12] MEDS: Alum-Mag Hydrox-Simeth 30 mL Suspension PO PRN (07:51)
[2016-07-12] MEDS: Polyethylene Glycol (PEG) 17 Gm Powder PO SCH ×2 (08:20→20:14)
[2016-07-12] MEDS: Insulin LISPRO 300 Unit/3 mL Inj SUBQ SCH ×4 (08:22→22:00)
[2016-07-12] MEDS: Filgrastim 480 mCg/1.6 mL Inj SUBQ SCH (09:37)
--- NOTE | 2016-07-12 16:52 | PCM.PNMED ---
Subjective Date of Service Jul 12, 2016 Subjective Patient seen and examined. Feels lousy today compared to yesterday. Eating a little pit. Denies any fever or chills. NO nausea or vomiting Exam Vital Signs Vital Sign - Last Date Time Temp Pulse Resp B/P Pulse Ox O2 Delivery O2 Flow Rate FiO2 07/12/16 12:16 16 98 07/12/16 12:13 36.9 96 113/68 Room Air 07/12/16 06:13 2.00 Intake and Output 07/11/16 07/11/16 07/12/16 Cumulative From/Thru 15:00 23:00 07:00 07/05/16 20:32 - 07/12/16 06:13 Intake Total 1687 ml 400 ml 12042 ml Output Total 1600 ml 1800 ml 80200 ml Balance 87 ml -1400 ml -9860 ml Intake Oral 774 ml 400 ml 8733 ml IV Total 913 ml 5432 ml Output Urine Total 1600 ml 1800 ml 74975 ml # Bowel Movements 1 Exam General: Alert, Oriented X3, Cooperative, No acute Distress Eyes: PERRLA, Scleral Anicteric Mouth: Mouth Normal, Mucous Membranes Moist/[place] Neck: Supple, no Thyromegaly, trachea central. Chest & Lungs: Clear to auscultation & percussion, No adventitious breath sounds, no crackles, no wheeze Cardiovascular: Normal S1, Normal S2, No Murmurs/Rubs/Gallops, Regular Rate/ Rhythm, (No JVD, no peripheral edema) Pulses: Radial (present and equal), Dorsalis Pedi (present and equal) Abdomen: Soft, Non-tender, Non-distended, Normoactive bowel tones. Musculoskeletal: Unremarkable. Normal range of motion, no swollen or erythematous joints Extremities: No edema, no cyanosis, no clubbing. Skin: small skin breakdown noted around his back Weathers catheter draining urine, no hematuria Neurological: Grossly neurologically intact, Normal Speech, Sensation Intact Lymphatic: Lymph nodes Cervical and Axillary not palpable. IVs and Medications Medications Reviewed: Medications were reviewed in detail Lab and Diagnostics Microbiology 07/05/16 Urine Culture - Final, Complete Mixed Urogenital Joann Result Diagram: 07/10/16 0420 07/10/16419 Assessment & Plan 51-year-old gentleman with an unfortunate history of high grade papillary urothelial carcinoma s/p incomplete TURBT, DM2, and hyperlipidemia, that presented to [facility] with intractable pain refractory to oral medications secondary to malignancy, with associated right lower extremity swelling and redness, and urinary retention. 1 Intractable pain refractory to oral medications secondary to malignancy, acute , present on admission. 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 - Incomplete TURBT 05/2016 s/p Chemotherapy - Leave 3-way Weathers indwelling and irrigate as needed with normal saline. - start seven days of Neupogen at 480 mcg subcutaneously daily, starting July 11. - will have Oncology re evaluate him tomorrow 3 Right lower extremity swelling and erythema, acute, present on admission. Ongoing - US duplex 07/05: No DVT - ASO titer, PCT; unlikely infectious - No antibiotics at this time 4 Diabetes mellitus, type II, chronic. Presumed stable - HbA1c 06/2016: 6.2. Blood glucose at target < 180 for last 2 days - continue high correction Lispro algorithm 5 Weakness, acute, present on admission. Ongoing - Likely secondary to chemotherapy effects - plan to return home with 6 Constipation, acute, present on admission. Under therapy - Likely secondary to opioid regimen - continue laxative regimen - Acetaminophen as needed for mild pain/fever/headache - Bowel regimen as needed - Antiemetic as needed Patient admitted under inpatient status with expected length of stay > 2 midnights for severity of present symptoms, complexities of treatment plan and risk for adverse event Anticipate discharge on Wednesday07/13/16 . GI Prophylaxis: Not indicated VTE Prophylaxis: Sub-Q Heparin (Unfractionated) VTE Mechanical Devices: Intermittant Pneumatic CD Resuscitation Status: CPR: Attempt Resuscitation Denis Hines MD Jul 12, 2016 16:52
[2016-07-13] VITALS (9 sets, daily range): BP systolic 97–126; BP diastolic 64–76; PULSE 79–96; RESP 16–20; O2SAT 95–98
[2016-07-13] MEDS: Heparin 5,000 Unit/mL Inj SUBQ SCH ×3 (00:49→16:32)
[2016-07-13] MEDS: Morphine ER 30 mg (MS Contin) Tablet PO SCH ×3 (02:04→17:30)
[2016-07-13] MEDS: 0.9% Sodium Chloride 1,000 ML IV SCH ×3 (02:14→21:04)
[2016-07-13 05:27] LABS: BASOPHILS % (AUTO) 0.1 % (0-3); EOSINOPHILS % (AUTO) 0 % (0-5); MONOCYTES % (AUTO) 0.4 % (4-12); Mean Corpuscular Hemoglobin 29.1 pg (27.0-35.0); Mean Corpuscular Volume 87.3 fL (81-100); NEUTROPHILS % (AUTO) 93.3 % (40-74); Platelet Count 286 bil/L (150-400)
[2016-07-13] MEDS: Insulin LISPRO 300 Unit/3 mL Inj SUBQ SCH ×4 (08:12→22:00)
[2016-07-13] MEDS: Polyethylene Glycol (PEG) 17 Gm Powder PO SCH ×2 (08:13→22:50)
[2016-07-13] MEDS: Ondansetron 2 mg/mL 2 mL Inj IVPUSH PRN (08:16)
--- NOTE | 2016-07-13 13:20 | PCM.PALLBR ---
Palliative Care Recommendation Pleasant 51-year-old gentleman with muscle invasive urothelial carcinoma, admitted with recurrent intractable pain. Palliative medicine consulted to assist with symptom management Outpatient palliative followup scheduled for July 15 at 1430. Patient is now hoping to discharge on July 14 Summary of palliative recommendations: -Symptom management (Pain/other) Pain- better today after bumpy weekend post chemotherapy. Worst problem seemed to be bladder spasms earlier. Overall symptoms much improved since Weathers catheter replaced- Weathers catheter should remain in place at discharge. Continue MS ER, 90 mg Q8 hr. 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 Oral hydromorphone, 4 mg Q3 hr prn and continue weaning to this from CREDIT RISK ANALYTICS MANAGER (though will continue to have CREDIT RISK ANALYTICS MANAGER available in case he has intractable breakthrough discomfort). Plan was reviewed explicitly with his nurse. He will also try to pretreat using oral hydromorphone 30-60 minutes before any activity. Anxiety- continue lorazepam prn Constipation-continue MiraLAX and senna scheduled twice daily Continue oxybutynin 5 mg PO TID Questionable benefit of B&O supp earlier but he noted he would be willing to retrial- ordered prn. He has not used this -DPOA/Advanced Directives/POLST-Full code; DPOAHC is his Additional Medical Diagnoses with primary management by Hospitalist team include : # Intractable pain refractory to oral medications secondary to malignancy, acute , present on admission. 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 # Right lower extremity swelling and erythema, acute, present on admission. Ongoing # Diabetes mellitus, type II, chronic. Presumed stable # Weakness, acute, present on admission. Ongoing # Constipation, acute, present on admission. Under therapy Problems: End of Life Preferences Full code Goals of Care Goals of care continue to be chemotherapy and then radical cystectomy and prostatectomy Disposition home at discharge Resuscitation Status Resuscitation Status: CPR: Attempt Resuscitation . Pain: Mild Symptom management: Anxiety, Pain Total time 40 minutes; >50% face to face with patient, providing counselling regarding plans and recommendations, and in care coordination with his medical teams. Palliative Brief Note Date of Service July 13, 2016 . Returned to reevaluate patient. Prior to visiting, reviewed his updated records in the EMR in detail. I also monitored him through the weekend. Spoke with his bedside nurse and reviewed his progress through the night. Also reviewed his case in detail with Dr. Romero. When I arrived, he is resting comfortably in bed. Says he feels considerably better today. Pain is better and the nausea and extreme fatigue he had post chemotherapy seems to be relenting. Reviewed his treatment plans with him once again. He is scheduled for his third cycle of chemotherapy starting next July 20. He also has an outpatient palliative visit scheduled for July 15. Notes by his oncologist and urologist indicate plans for 3-4 cycles of chemotherapy, followed by repeat cystoscopy (and possible CT imaging) then with decision regarding when to proceed with cystectomy/lymph node dissection/etc. He denies any bladder spasms. He says his pain is a constant deep ache in the pelvis, worse with activity. His exam remains stable. Thomas Naqvi MD July 13, 2016 13:20
[2016-07-13] MEDS: HYDROmorphone PCA 0.2 mg/mL 30 mL Inj IV PRN (14:08)
--- NOTE | 2016-07-13 19:13 | PCM.PNMED ---
Subjective Date of Service July 13, 2016 Subjective Patient states that his pain is much better control his hardly using the [employer]POR[employer]ICATION[employer] ASSOCIATE pump. He does feel very weak and fatigued he could not urinate at home and came to the hospital. last bowel movement was day before yesterday he feels a little gassy but not uncomfortable. He thinks his abdomen is always distended. Nursing stated that he cannot take that the 3-way Weathers home, they would like for the urology to see the patient prior to discharge. Patient has sharply elevated white count today Exam Vital Signs Vital Sign - Last Date Time Temp Pulse Resp B/P Pulse Ox O2 Delivery O2 Flow Rate FiO2 07/13/16 17:45 16 98 07/13/16 15:52 36.7 96 122/72 Room Air 07/12/16 19:32 2.00 Intake and Output 07/12/16 07/12/16 07/13/16 Cumulative From/Thru 15:00 23:00 07:00 07/05/16 20:32 - 07/13/16 05:56 Intake Total 1250 ml 2072 ml 1664 ml 72239 ml Output Total 1950 ml 1050 ml 47704 ml Balance 1250 ml 122 ml 614 ml -7874 ml Intake Oral 972 ml 400 ml 78377 ml IV Total 1250 ml 1100 ml 1264 ml 9046 ml Output Urine Total 1950 ml 1050 ml 82123 ml # Bowel Movements 0 1 Exam Gen.: No acute distress. pale appearing, obese HEENT: Normocephalic, atraumatic Heart: Month a systolic murmur without radiation, regular rate and rhythm Lungs: Clear to auscultation bilaterally no crackles or wheezes Abdomen: Large obese, distended, normal bowel sounds negative for tenderness to palpation Extremities: Negative for edema Skin: Has a port on the right chest and also he can see the port markings on the night neck as well he has a right gluteus or its ulcer right side of his gluteal cleft Neuro: No focal deficits Psych: Negative for anxiety IVs and Medications IV Fluids Normal saline 100 mL/h Medications Reviewed: Medications were reviewed in detail Lab and Diagnostics Result Diagram: 07/13/1650907/13/16509 Assessment & Plan 51-year-old gentleman with an unfortunate history of high grade papillary urothelial carcinoma s/p incomplete TURBT, DM2, and hyperlipidemia, that presented to [facility] with intractable pain refractory to oral medications secondary to malignancy, with associated right lower extremity swelling and redness, and urinary retention. 1 Intractable pain refractory to oral medications secondary to malignancy, acute , present on admission. Persistent with some improvement - Improved after change of the way Weathers cath on 07/06: We will request urology to see the patient prior to discharge this patient cannot be discharged on a Weathers with irrigation - Continue with IV Dilaudid [employer]ATE, Palliative care managing pain medications - Continue with oral MS Contin 90 mg q 8 hours - Palliative care is following: We will decide discharge medications 2 High-grade papillary urothelial carcinoma status post incomplete TURBT, chronic. - Incomplete TURBT 05/2016 s/p Chemotherapy - Leave 3-way Weathers indwelling and irrigate as needed with normal saline. - start seven days of Neupogen at 480 mcg subcutaneously daily, starting Wednesday, July 11. - White count may be elevated due to Neupogen 3 Right lower extremity swelling and erythema, acute, present on admission. Ongoing - US duplex 07/05: No DVT - ASO titer, PCT; unlikely infectious - No antibiotics at this time 4 Diabetes mellitus, type II, chronic. Presumed stable - HbA1c 06/2016: 6.2. Blood glucose at target < 180 for last 2 days - continue high correction Lispro algorithm 5 Weakness, acute, present on admission. Ongoing - Likely secondary to chemotherapy effects - plan to return home with 6 Constipation, acute, present on admission. Under therapy - Likely secondary to opioid regimen - continue laxative regimen 7. Anemia: Likely due to chronic disease -- We will add iron panel, folate B12 reticulocyte count labs -- Daily CBC - Acetaminophen as needed for mild pain/fever/headache - Bowel regimen as needed - Antiemetic as needed Patient admitted under inpatient status with expected length of stay > 2 midnights for severity of present symptoms, complexities of treatment plan and risk for adverse event Anticipate discharge on Wednesday07/13/16 . Pain Evaluation: Adequate Pain Control GI Prophylaxis: Not indicated VTE Prophylaxis: Sub-Q Heparin (Unfractionated) VTE Mechanical Devices: Intermittant Pneumatic CD Resuscitation Status: CPR: Attempt Resuscitation Katherine Martinez DO July 13, 2016 19:13
[2016-07-13 22:52] LABS: Unsaturated Iron Binding 112.1 ug/dL
[2016-07-13] MEDS: Lidocaine 5% 35.5 Gm Ointment TOPICAL PRN (23:31)
[2016-07-14] VITALS (16 sets, daily range): BP systolic 122–143; BP diastolic 71–83; PULSE 88–102; RESP 16–20; O2SAT 93–98
[2016-07-14 00:24] LABS: APPEARANCE,URINE TURBID (CLEAR,HAZY); COLOR,URINE YELLOW (YELLOW); OCCULT BLOOD,URINE LARGE (NEGATIVE); PH,URINE 6.5 (5.0-8.0); UROBILINOGEN,URINE NORMAL (NORMAL)
[2016-07-14] MEDS: Morphine ER 30 mg (MS Contin) Tablet PO SCH ×3 (01:22→16:48)
[2016-07-14] MEDS: Ondansetron 2 mg/mL 2 mL Inj IVPUSH PRN ×2 (01:26→16:52)
[2016-07-14] MEDS: Heparin 5,000 Unit/mL Inj SUBQ SCH ×3 (01:27→16:48)
[2016-07-14 03:13] LABS: Mean Corpuscular Hemoglobin 28.4 pg (27.0-35.0); Mean Corpuscular Volume 86.9 fL (81-100)
[2016-07-14] MEDS: 0.9% Sodium Chloride 1,000 ML IV SCH (05:49)
[2016-07-14] MEDS: Insulin LISPRO 300 Unit/3 mL Inj SUBQ SCH ×4 (08:22→21:25)
[2016-07-14] MEDS: Polyethylene Glycol (PEG) 17 Gm Powder PO SCH ×2 (08:24→21:22)
[2016-07-14 08:53] LABS: OSMOLALITY, URINE 447 mOs/kH2O (250-1200)
[2016-07-14] MEDS: HYDROmorphone PCA 0.2 mg/mL 30 mL Inj IV PRN ×2 (09:21→18:12)
--- NOTE | 2016-07-14 10:21 | PCM.PALLBR ---
Palliative Care Recommendation Pleasant 51-year-old gentleman with muscle invasive urothelial carcinoma, admitted with recurrent intractable pain. Palliative medicine consulted to assist with symptom management Outpatient palliative followup scheduled for July 15 at 1430. Discharge on hold due to fever and leukocytosis Summary of palliative recommendations: 07/14/1697-[id number] much on the edge of control despite increase in HM dose from 4 to 6 mg at Q 3H. Will increase MS ER to 120 mg Q 8 then consider this afternoon a decrease in the HM dose back to 4. Pain management important in assisting pt to get out of bed and have increase in activity. Fever and leukocytosis- suspect UTI with thakkar. UC/BC pending. Bladder CA with spasms- still on irrigation. Awaiting urology review. This maybe an ongoing issue until he has his definitive surgery. Continue oxybutynin Hypothyroidism-TSH 47+-will need repleting. Defer to hospitalist. Nutrition-poor with poor PO intake per dietary note-Encourage nutritious PO intake--again needs to get out of bed but that will only happen with better pain control -Symptom management (Pain/other) Pain- better today after bumpy weekend post chemotherapy. Worst problem seemed to be bladder spasms earlier. Overall symptoms much improved since Thakkar catheter replaced- Thakkar catheter should remain in place at discharge. Continue MS ER, 90 mg Q8 hr. Continue hydromorphone POMPOM MAKER but encouraged him to try to use oral hydromorphone for breakthrough pain. Oral hydromorphone, 4 mg Q3 hr prn and continue weaning to this from POMPOM MAKER (though will continue to have POMPOM MAKER available in case he has intractable breakthrough discomfort). Plan was reviewed explicitly with his nurse. He will also try to pretreat using oral hydromorphone 30-60 minutes before any activity. Anxiety- continue lorazepam prn Constipation-continue MiraLAX and senna scheduled twice daily Continue oxybutynin 5 mg PO TID Questionable benefit of B&O supp earlier but he noted he would be willing to retrial- ordered prn. He has not used this -DPOA/Advanced Directives/POLST-Full code; DPOAHC is his Additional Medical Diagnoses with primary management by Hospitalist team include : # Intractable pain refractory to oral medications secondary to malignancy, acute , present on admission. 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 # Right lower extremity swelling and erythema, acute, present on admission. Ongoing # Diabetes mellitus, type II, chronic. Presumed stable # Weakness, acute, present on admission. Ongoing # Constipation, acute, present on admission. Under therapy Problems: End of Life Preferences Full code Goals of Care Goals of care continue to be chemotherapy and then radical cystectomy and prostatectomy Disposition home at discharge Resuscitation Status Resuscitation Status: CPR: Attempt Resuscitation POLST Updates/Changes POLST Discussed with: Patient . Pain: Moderate Symptom management: Anxiety, Pain Total time 35 minutes; >50% face to face with patient and/or family, providing counselling regarding plans and recommendations, and in care coordination with his/her medical teams. which included mad management and case mngmt I also spent an additional [ ] minutes counseling for advanced care planning with the patient/the patients family/the surrogate decision maker. copies to: Lizzy Curry MD; Fausto Salvador MD Palliative Brief Note Date of Service July 14, 2016 . 51 yo with bladder CA getting chemo with chronic bladder/penile pain. Pain exacerbation with bout of laughing and with change of catheter side. Used POMPOM MAKER for these bouts. Notes fever and spike in T last night with WBC at 25K-now afebrile and WBC down to 11K without treatment. UA-packed RBC, WBC-new O: alert in bed with HOB at 45 degrees. initially wincing in pain labs above. Ethel Romero MD July 14, 2016 10:21
--- NOTE | 2016-07-14 10:45 | PCM.PNSURG ---
Subjective Date of Service: July 14, 2016 Date of Service: July 14, 2016 Visit Information: Reason for Visit Urinary Retention,Intractable Pain, Surgery/Surgery Date Post-Op Day # NA Date of Admission: Jul 06, 2016 at 01:37 Hospital Day # 8 Subjective: Pt well known to Urology service, unfortunate 51 y/o gentleman diagnosed last month with high grade invasive TCC with hemorrhage at presentation requiring supportive transfusion. Given pathology/nature of his cancer, plans are for neoadjuvant chemotherapy possibly XRT to potentially be followed by cystectomy after treatment. Last seen by Roman Curry in clinic 07/02/16, readmitted with pain and gross hematuria. Now seen by palliative care to assist in pain control, urine remaining completely clear, off irrigation with a 3 way [address] Otherwise discharge planning underway. Postop General: No Shortness of Breath, No Chest Pain Gastrointestinal: Tolerating Oral Feedings Pain Management: PO Neurological: Weakness Postop Activity: Ambulate with Assist Objective Vital Sign- Last 8 Hours Date Time Temp Pulse Resp B/P Pulse Ox O2 Delivery O2 Flow Rate FiO2 07/14/16 09:31 18 97 07/14/16 08:33 18 96 07/14/16 05:57 16 95 07/14/16 05:48 36.7 94 20 122/71 95 Room Air Intake and Output- Last 8 Hour 07/14/16 Cumulative From/Thru 07:00 07/05/16 20:32 - 07/14/16 06:18 Intake Total 1985 ml 24617 ml Output Total 2300 ml 81378 ml Balance -315 ml -7752 ml Intake Oral 800 ml 33405 ml IV Total 1185 ml 53470 ml Output Urine Total 2300 ml 03543 ml # Bowel Movements 1 General: Alert, Oriented X3, Cooperative, No Acute Distress Neck: Supple Lungs: Normal Air Movement Heart: Exam Unremarkable (warm ext, some dep edema) Abdomen: Benign, Protuberant Catheters: 3 Way Irrigation (3 way catheter OFF irrigation with clear yellow urine. 22fr ) Result Diagram: 07/14/16 0250 07/14/16 0250 Assessment & Plan Impression as above, locally advanced, high grade TCC of bladder, retention with thakkar, admitted with hematuria now resolved neoadjuvant chemotherapy planned Problems: Plan Plans have been home with catheter for now. Offered to pt change of his 22fr 3 way to a smaller catheter to go home with. He prefers keeping the one he has because he does not want it to have to be changed/moved. Would have him f/u urology clinic in 2-3 weeks for catheter change (may downsize or address if he needs to keep it) at that time. will get an appointment time for him today (and communicate to the community life director) and he can call to change the time later if needed. [facility] [phone] VTE Prophylaxis: Sub-Q Heparin (Unfractionated) Resuscitation Status: CPR: Attempt Resuscitation Kandy Figueroa MD July 14, 2016 10:45
--- NOTE | 2016-07-14 11:01 | PCM.PNSURG ---
Subjective Visit Information: Reason for Visit Urinary Retention,Intractable Pain, Surgery/Surgery Date Post-Op Day # Date of Admission: Jul 06, 2016 at 01:37 Hospital Day # Objective Vital Sign- Last 8 Hours Date Time Temp Pulse Resp B/P Pulse Ox O2 Delivery O2 Flow Rate FiO2 07/14/16 09:31 18 97 07/14/16 08:33 18 96 07/14/16 05:57 16 95 07/14/16 05:48 36.7 94 20 122/71 95 Room Air Intake and Output- Last 8 Hour 07/14/16 Cumulative From/Thru 07:00 07/05/16 20:32 - 07/14/16 06:18 Intake Total 1985 ml 51008 ml Output Total 2300 ml 64438 ml Balance -315 ml -7752 ml Intake Oral 800 ml 74883 ml IV Total 1185 ml 67728 ml Output Urine Total 2300 ml 41518 ml # Bowel Movements 1 Result Diagram: 07/14/16 0250 07/14/16 0250 Assessment & Plan Plan f/u Urology Appointment July 30 10:00am. For catheter change (versus void trial) CORWIN Duran at [facility] Urology in [facility] [phone] VTE Prophylaxis: Sub-Q Heparin (Unfractionated) Resuscitation Status: CPR: Attempt Resuscitation Kandy Figueroa MD July 14, 2016 11:01
[2016-07-14] MEDS: 0.9% Sodium Chloride 250 ML IV SCH (15:05)
[2016-07-14] MEDS ORDERED: cefTRIAXone Inj 2,000 MG in Dextrose 5% Minibag Plus 50 ML IV SCH (15:55)
--- NOTE | 2016-07-14 16:24 | PCM.PNMED ---
Subjective Date of Service July 14, 2016 Subjective Patient is seen and examined. He says that he was seen by this morning she moved the catheter to the left side but it still in the irrigation mode. Patient says that it causes him so much pain when the try to insert the Thakkar that he is reluctant to let anybody touched the thakkar catheter. He also says that his feeling weak and he consents to blood today after hearing the benefits and risks. Exam Vital Signs Vital Sign - Last Date Time Temp Pulse Resp B/P Pulse Ox O2 Delivery O2 Flow Rate FiO2 07/14/16 15:39 37.2 96 18 124/73 98 Room Air 07/12/16 19:32 2.00 Intake and Output 07/13/16 07/13/16 07/14/16 Cumulative From/Thru 14:59 22:59 06:59 07/05/16 20:32 - 07/14/16 06:18 Intake Total 2137 ml 1985 ml 50314 ml Output Total 1700 ml 2300 ml 98177 ml Balance 437 ml -315 ml -7752 ml Intake Oral 956 ml 800 ml 58915 ml IV Total 1181 ml 1185 ml 11881 ml Output Urine Total 1700 ml 2300 ml 64166 ml # Bowel Movements 1 Exam Gen.: No acute distress. HEENT: Normocephalic, atraumatic Abdomen: Nondistended soft normal bowel sounds Extremities: Positive for Ankle edema Neck: Negative for JVD , negative for thyromegaly trachea central Psychiatric negative for anxiety Neuro negative for focal deficits IVs and Medications IV Fluids Discontinued Medications Reviewed: Medications were reviewed in detail Lab and Diagnostics Result Diagram: 07/14/16 0250 07/14/16 0250 Assessment & Plan 51-year-old gentleman with an unfortunate history of high grade papillary urothelial carcinoma s/p incomplete TURBT, DM2, and hyperlipidemia, that presented to [facility] with intractable pain refractory to oral medications secondary to malignancy, with associated right lower extremity swelling and redness, and urinary retention. 1 Intractable pain refractory to oral medications secondary to malignancy, acute , present on admission. Persistent with some improvement - Improved after change of the way Thakkar cath on 07/06: We will request urology to see the patient prior to discharge this patient cannot be discharged on a Thakkar with irrigation - Continue with IV Dilaudid SPUD SORTER, Palliative care managing pain medications - Continue with oral MS Contin 90 mg q 8 hours - Palliative care is following: We will decide discharge medications, they have upped the therapy today -- Called Dr. Morales from urology regarding the 3-way Thakkar with irrigation: She stated that she will see the patient, patient stated she did. Called her after she visited the patient, no return call was received. Need to discuss discharge planning with them -- We will continue to try and reach urology regarding discharge planning 2 High-grade papillary urothelial carcinoma status post incomplete TURBT, chronic. - Incomplete TURBT 05/2016 s/p Chemotherapy - Leave 3-way Thakkar indwelling and irrigate as needed with normal saline. - start seven days of Neupogen at 480 mcg subcutaneously daily, starting July 11. - White count may be elevated due to Neupogen -- Contacted oncology Dr. bynum 07/[address] Young was on vacation: Dr. Jaciel Allen Sr. give 1 dose of Neupogen 07/[address] Young when he returns -- We will continue to follow the daily labs 3 Right lower extremity swelling and erythema, acute, present on admission. Ongoing - US duplex 07/05: No DVT - ASO titer, PCT; unlikely infectious - No antibiotics at this time 4 Diabetes mellitus, type II, chronic. Presumed stable - HbA1c 06/2016: 6.2. Blood glucose at target < 180 for last 2 days - continue high correction Lispro algorithm 5 Weakness, acute, present on admission. Ongoing - Likely secondary to chemotherapy effects - plan to return home with 6 Constipation, acute, present on admission. Under therapy - Likely secondary to opioid regimen - continue laxative regimen 7. Anemia: Likely due to chronic disease -- We will add iron panel, folate B12 reticulocyte count labs -- Daily CBC -- Patient received 1 unit of PRBC on 07/14 due to low hemoglobin 7.6 8. Urinary tract infection with Escherichia coli: Noted from the culture from -- Patient is put on ceftriaxone IV antibiotics -- We will monitor blood cultures from overnight, we will monitor urine culture sensitivities 9. Hypothyroidism, not present on admission: This is a new diagnosis -- Sharply elevated TSH 44, T4 will be added 07/14 -- We will consider Synthroid - Acetaminophen as needed for mild pain/fever/headache - Bowel regimen as needed - Antiemetic as needed Acute hyponatremia 07/14: -- Urine sodium urine osmolar D, serum osmolality, TSH, cortisol were all ordered and reviewed: Fluids were stopped due to suspicion for SIADH, 1 L fluid restriction is placed. TSH sharply elevated, T4 is added. We will consider supplementing -- Continue to follow daily labs Patient admitted under inpatient status with expected length of stay > 2 midnights for severity of present symptoms, complexities of treatment plan and risk for adverse event Disposition: Need to have a plan for Thakkar catheter placement, better pain control, urine sensitivities back prior to discharge . Pain Evaluation: Pain not Controlled GI Prophylaxis: Not indicated VTE Prophylaxis: Sub-Q Heparin (Unfractionated) VTE Mechanical Devices: Intermittant Pneumatic CD Resuscitation Status: CPR: Attempt Resuscitation Katherine Martinez DO July 14, 2016 16:24
[2016-07-14] MEDS ORDERED: Filgrastim 480 mCg/1.6 mL Inj SUBQ ONE (16:30)
[2016-07-14] MEDS ORDERED: 0.9% Sodium Chloride 100 ML ONE (16:39)
[2016-07-15] VITALS (11 sets, daily range): BP systolic 111–153; BP diastolic 58–77; PULSE 101–114; RESP 16–20; O2SAT 95–96
[2016-07-15] MEDS: Heparin 5,000 Unit/mL Inj SUBQ SCH ×3 (01:02→17:33)
[2016-07-15] MEDS: Morphine ER 30 mg (MS Contin) Tablet PO SCH ×3 (01:03→17:33)
[2016-07-15] MEDS: Alum-Mag Hydrox-Simeth 30 mL Suspension PO PRN (01:35)
[2016-07-15 05:09] LABS: BASOPHILS % (AUTO) 0.4 % (0-3); EOSINOPHILS % (AUTO) 0.3 % (0-5); MONOCYTES % (AUTO) 2.7 % (4-12); Mean Corpuscular Hemoglobin 28.7 pg (27.0-35.0); Mean Corpuscular Volume 85.7 fL (81-100); NEUTROPHILS % (AUTO) 84.7 % (40-74); Platelet Count 233 bil/L (150-400)
[2016-07-15] MEDS: HYDROmorphone PCA 0.2 mg/mL 30 mL Inj IV PRN ×3 (06:46→19:31)
[2016-07-15] MEDS: Polyethylene Glycol (PEG) 17 Gm Powder PO SCH ×2 (08:30→20:30)
[2016-07-15] MEDS: Ondansetron 2 mg/mL 2 mL Inj IVPUSH PRN ×3 (08:38→17:17)
[2016-07-15] MEDS: Insulin LISPRO 300 Unit/3 mL Inj SUBQ SCH ×4 (08:45→21:38)
--- NOTE | 2016-07-15 09:24 | PCM.PALLBR ---
Palliative Care Recommendation Pleasant 51-year-old gentleman with muscle invasive urothelial carcinoma, admitted with recurrent intractable pain. Palliative medicine consulted to assist with symptom management Outpatient palliative followup scheduled for July 15 at 1430. Discharge on hold due to fever and leukocytosis Summary of palliative recommendations: 07/15/16-Pain- MSER at 120 tid. Intolerant of decrease of HM to 4- now back to 6 mg. Considering gabapentin UTI- enterococcal- ? if cath needs to be changed. Antibiotics by hospitalist Depression/anx re pain-reviewed ? challenges of ds, pain, sense of loss of control etc. He is willing to consider antidepressant. 07/14/1657-Rtij-vose much on the edge of control despite increase in HM dose from 4 to 6 mg at Q 3H. Will increase MS ER to 120 mg Q 8 then consider this afternoon a decrease in the HM dose back to 4. Pain management important in assisting pt to get out of bed and have increase in activity. Fever and leukocytosis- suspect UTI with thakkar. UC/BC pending. Bladder CA with spasms- still on irrigation. Awaiting urology review. This maybe an ongoing issue until he has his definitive surgery. Continue oxybutynin Hypothyroidism-TSH 47+-will need repleting. Defer to hospitalist. Nutrition-poor with poor PO intake per dietary note-Encourage nutritious PO intake--again needs to get out of bed but that will only happen with better pain control -Symptom management (Pain/other) Pain- better today after bumpy weekend post chemotherapy. Worst problem seemed to be bladder spasms earlier. Overall symptoms much improved since Thakkar catheter replaced- Thakkar catheter should remain in place at discharge. Continue MS ER, 90 mg Q8 hr. Continue hydromorphone CREDIT CASHIER but encouraged him to try to use oral hydromorphone for breakthrough pain. Oral hydromorphone, 4 mg Q3 hr prn and continue weaning to this from CREDIT CASHIER (though will continue to have CREDIT CASHIER available in case he has intractable breakthrough discomfort). Plan was reviewed explicitly with his nurse. He will also try to pretreat using oral hydromorphone 30-60 minutes before any activity. Anxiety- continue lorazepam prn Constipation-continue MiraLAX and senna scheduled twice daily Continue oxybutynin 5 mg PO TID Questionable benefit of B&O supp earlier but he noted he would be willing to retrial- ordered prn. He has not used this -DPOA/Advanced Directives/POLST-Full code; DPOAHC is his Additional Medical Diagnoses with primary management by Hospitalist team include : # Intractable pain refractory to oral medications secondary to malignancy, acute , present on admission. 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 # Right lower extremity swelling and erythema, acute, present on admission. Ongoing # Diabetes mellitus, type II, chronic. Presumed stable # Weakness, acute, present on admission. Ongoing # Constipation, acute, present on admission. Under therapy Problems: End of Life Preferences Full code Goals of Care Goals of care continue to be chemotherapy and then radical cystectomy and prostatectomy Disposition home at discharge Resuscitation Status Resuscitation Status: CPR: Attempt Resuscitation POLST Updates/Changes POLST Discussed with: Patient Total time [35 minutes; >50% face to face with patient and/or family, providing counselling regarding plans and recommendations, and in care coordination with his/her medical teams. med management, disease counseling I also spent an additional [ ] minutes counseling for advanced care planning with the patient/the patients family/the surrogate decision maker. Palliative Brief Note Date of Service July 15, 2016 . Patient believes transition to higher MS dose is good idea but had bit of rough time last night. Has no energy but willing to get up for shower and be in chair today. Some fear of increase of pain with increase in activity. Poor appetite-he believes due to stress/worry/anxiety. Ethel Romero MD July 15, 2016 09:24
[2016-07-15] MEDS: Ciprofloxacin Inj 400 MG in IV Premix 1 EACH IV SCH ×2 (12:22→20:17)
--- NOTE | 2016-07-15 13:09 | PCM.PNMED ---
Subjective Date of Service July 15, 2016 Subjective Patient is seen and examined. He states that his pain levels are improving. He plans to take a shower and go for a walk today. No other concerns Exam Vital Signs Vital Sign - Last Date Time Temp Pulse Resp B/P Pulse Ox O2 Delivery O2 Flow Rate FiO2 07/15/16 11:01 36.7 109 18 153/76 95 Room Air 07/12/16 19:32 2.00 Intake and Output 07/14/16 07/14/16 07/15/16 Cumulative From/Thru 15:00 23:00 07:00 07/05/16 20:32 - 07/15/16 06:35 Intake Total 1286 ml 796 ml 22993 ml Output Total 3200 ml 1250 ml 05968 ml Balance -1914 ml -454 ml -66182 ml Intake Oral 936 ml 640 ml 72163 ml IV Total 156 ml 21503 ml Packed Cells 350 ml 350 ml Output Urine Total 3200 ml 1250 ml 54971 ml # Bowel Movements 0 1 Exam Gen.: No acute distress, however he did have pain in his urethral area when he was asked to sit up for a lung exam HEENT: Normocephalic, atraumatic Lungs: Clear to auscultation anteriorly and laterally in no crackles or wheezes Abdomen: Large nontender Extremities: 1+ pitting edema at ankles Neuro: No focal deficits Psych: No anxiety IVs and Medications IV Fluids None Medications Reviewed: Medications were reviewed in detail Lab and Diagnostics Result Diagram: 07/15/16 0500 07/15/16 0500 Assessment & Plan 51-year-old gentleman with an unfortunate history of high grade papillary urothelial carcinoma s/p incomplete TURBT, DM2, and hyperlipidemia, that presented to [facility] with intractable pain refractory to oral medications secondary to malignancy, with associated right lower extremity swelling and redness, and urinary retention. 1 Intractable pain refractory to oral medications secondary to malignancy, acute , present on admission. Persistent with some improvement - Improved after change of the way Weathers cath on 07/06: We will request urology to see the patient prior to discharge this patient cannot be discharged on a Weathers with irrigation - Continue with IV Dilaudid HEAD REFRIGERATING ENGINEER, Palliative care managing pain medications - Continue with oral MS Contin 90 mg q 8 hours - Palliative care is following: We will decide discharge medications, they have upped the therapy today -- Called Dr. Morales from urology regarding the 3-way Weathers with irrigation: She stated that she will see the patient 07/14, patient stated she did. Called her after she visited the patient, no return call was received. Need to discuss discharge planning with them -- We will continue to try and reach urology regarding discharge plannin/[address] Figueroa's note: "Plans have been home with catheter for now.Offered to pt change of his 22fr 3 way to a smaller catheter to go home with. He prefers keeping the one he has because he does not want it to have to be changed/moved. Would have him f/u urology clinic in 2-3 weeks for catheter change (may downsize or address if he needs to keep it) at that time. will get an appointment time for him today (and communicate to the community association manager) and he can call to change the time later if needed. " -- Also talked to Dr. Heredia is socially responsible investment adviser for urology, who discussed the case with Dr. Sandoval. They feel that patient can keep the three-way Weathers by capping of the irrigation port. This is conveyed to the staff 2 High-grade papillary urothelial carcinoma status post incomplete TURBT, chronic. - Incomplete TURBT 05/2016 s/p Chemotherapy - Leave 3-way Weathers indwelling and irrigate as needed with normal saline. - start seven days of Neupogen at 480 mcg subcutaneously daily, starting Wednesday, July 11. - White count may be elevated due to Neupogen -- Contacted oncology Dr. bynum 07/[address] Young was on vacation: Dr. Jaciel Allen Sr. give 1 dose of Neupogen 07/[address] Young when he returns -- 07/[address] Young, who opted for no neupogen on 07/15 based on his labs, Dr. Young will be in later to see the patient 3 Right lower extremity swelling and erythema, acute, present on admission. Ongoing - US duplex 07/05: No DVT - ASO titer, PCT; unlikely infectious - No antibiotics at this time 4 Diabetes mellitus, type II, chronic. Presumed stable - HbA1c 06/2016: 6.2. Blood glucose at target < 180 for last 2 days - continue SSI 5 Weakness, acute, present on admission. Ongoing - Likely secondary to chemotherapy effects - plan to return home with 6 Constipation, acute, present on admission. Under therapy - Likely secondary to opioid regimen - continue laxative regimen 7. Anemia: Likely due to chronic disease -- We will add iron panel, folate B12 reticulocyte count labs -- Daily CBC -- Patient received 1 unit of PRBC on 07/14 due to low hemoglobin 7.6 -- 07/15 Will start iron supplementation 8. Urinary tract infection with Enterococcusi: Noted from the culture from 07/13 -- Patient is put on ceftriaxone IV antibiotics: Switched to Cipro Cipro based on cultures 9. Hypothyroidism, not present on admission: This is a new diagnosis -- Sharply elevated TSH 44, T4 will be added 07/14 -- We will consider Synthroid -- 07/[address] Young: He recommends repeating the lab work prior to initiating the synthroid: Repeat labs showed similar findings -- Started.Patient on 200 g of thyroid supplement - Acetaminophen as needed for mild pain/fever/headache - Bowel regimen as needed - Antiemetic as needed Acute hyponatremia 07/14: -- Urine sodium urine osmolar D, serum osmolality, TSH, cortisol were all ordered and reviewed: Fluids were stopped due to suspicion for SIADH, 1 L fluid restriction is placed. TSH sharply elevated, T4 is added. -- Start patient on thyroid supplement -- Continue to follow daily labs -- Stopped Lasix as Dr. Young says this was initiated last admission due to fluid overload and edema: can be givne PRN -- 800 mL fluid restriction noon f/u sodium lab 07/15: Slowly improving Patient admitted under inpatient status with expected length of stay > 2 midnights for severity of present symptoms, complexities of treatment plan and risk for adverse event Disposition: Need to have a plan for Weathers catheter placement, better pain control, urine sensitivities back prior to discharge . Pain Evaluation: Adequate Pain Control GI Prophylaxis: Not indicated VTE Prophylaxis: Sub-Q Heparin (Unfractionated) VTE Mechanical Devices: Intermittant Pneumatic CD Resuscitation Status: CPR: Attempt Resuscitation Time spent 25 minutes Katherine Martinez DO July 15, 2016 13:09
[2016-07-15] MEDS: 0.9% Sodium Chloride 250 ML IV SCH (17:45)
--- NOTE | 2016-07-15 22:48 | PROG NOTE ---
[address] [address] PROGRESS NOTE PATIENT: DIANA CROWELL : 1965 MR#: [id number] ADMIT: 07/06/2016 JOB ID: [id number] DATE: 07/15/2016 DIAGNOSES: 1. 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 2. Cancer-related bladder pain. 3. Hypothyroidism, discovered today. SUBJECTIVE: The patient ended up staying in the hospital for pain control reasons. He says it is getting gradually under control. He complains of profound lack of energy. He has not had hematuria. OBJECTIVE: Pale and tired. Awake, alert, oriented x3. Blood pressure 130/77, heart rate 101, temperature 36.9, O2 saturation 95% on room air. LABORATORIES: Had transient leukocytosis due to G-CSF, now resolved. Hemoglobin is 8.0, after 1 unit blood transfusion yesterday. TSH is severely high at 43.6 with low total and free T4. Sodium remains low at 130 and albumin is 2.9. IMPRESSION AND PLAN: 1. Bladder cancer, status post two cycles of neoadjuvant dose-dense MVAC. I will contact Dr. Lizzy Curry tomorrow, and will try to schedule a followup cystoscopy for assessment of tumor response either this week or early next week. The patient is scheduled to start cycle three on Wednesday, July 20 at [facility]. 2. Hypothyroidism, new diagnosis. Dr. Martinez will start replacement therapy. I will go ahead and add antiperoxidase antibody to his morning labs. I would expect improvement in his energy level and functional status after 2-3 weeks of thyroid replacement therapy.
[2016-07-16] VITALS (13 sets, daily range): BP systolic 103–133; BP diastolic 56–79; PULSE 95–103; RESP 16–20; O2SAT 92–99
[2016-07-16] MEDS: Morphine ER 30 mg (MS Contin) Tablet PO SCH ×3 (00:51→17:20)
[2016-07-16] MEDS: Heparin 5,000 Unit/mL Inj SUBQ SCH ×3 (00:53→17:20)
[2016-07-16 04:51] LABS: BASOPHILS % (AUTO) 0.9 % (0-3); EOSINOPHILS % (AUTO) 0.4 % (0-5); Mean Corpuscular Hemoglobin 28.7 pg (27.0-35.0); Mean Corpuscular Volume 85.7 fL (81-100); NEUTROPHILS % (AUTO) 75.5 % (40-74); Platelet Count 217 bil/L (150-400)
[2016-07-16] MEDS: Ciprofloxacin Inj 400 MG in IV Premix 1 EACH IV SCH ×2 (07:50→20:51)
[2016-07-16] MEDS: Polyethylene Glycol (PEG) 17 Gm Powder PO SCH ×2 (07:51→20:50)
[2016-07-16] MEDS: Ondansetron 2 mg/mL 2 mL Inj IVPUSH PRN ×2 (08:02→15:53)
[2016-07-16] MEDS: Insulin LISPRO 300 Unit/3 mL Inj SUBQ SCH ×4 (08:04→22:00)
[2016-07-16] MEDS: 0.9% Sodium Chloride 250 ML IV SCH ×2 (08:55→12:10)
--- NOTE | 2016-07-16 11:25 | PCM.PALLBR ---
Palliative Care Recommendation Pleasant 51-year-old gentleman with muscle invasive urothelial carcinoma, admitted with recurrent intractable pain. Palliative medicine consulted to assist with symptom management When I reviewed plans with Dr. Curry of urology today, he indicated that he felt quite strongly that the patient should follow through with his scheduled office flexible cystoscopy next week for second look at the bladder tumor. He did not feel that there was any benefit to trying to do that inpatient today or tomorrow. He also noted that he would defer decisions about further imaging until after the repeat cystoscopy. Dr. Curry also did not feel that there would be anything gained by trying to switch Weathers catheter at this time- his recommendation was that current Weathers catheter should be left in place and change will be managed as needed during next week's office visit. Dr. Phipps had requested thyroid peroxidase antibody level to check for autoimmune thyroiditis- I have ordered this in [employer] (where it is identified as "TPO Auto Ab"). He did not feel that the patient's chemotherapy or neoplasm had anything to do with his hypothyroidism and it was simply an unfortunate coincidence (certainly, the patient could have had subclinical hypothyroidism progressing for some time). We had also discussed plans for second look by Dr. Curry as well as upcoming chemotherapy- Dr. Phipps plans to proceed with the third cycle of chemotherapy on Wednesday, July 20. Will need to reschedule outpatient palliative medicine recheck for next week, probably July 21 (though this will need to be flexible given his other outpatient follow-up visits) Summary of palliative recommendations: 07/14/1678-Eram-eabgokko control with MS ER increased to 120 mg Q 8, with oral hydromorphone, 4-6 mg every 3 hours as needed for breakthrough pain. SDV PILOT/NAVIGATOR/DDS OPERATOR continues at bedside for prn use, but he is encouraged once again to try to transition over to only oral meds Anxiety- continue lorazepam prn Constipation-continue MiraLAX and senna scheduled twice daily Continue oxybutynin 5 mg PO TID for potential bladder spasms On levothyroxine. Thyroid peroxidase antibody level drawn per oncology. Nutrition-poor with poor PO intake per dietary note-Encourage nutritious PO intake--again needs to get out of bed but that will only happen with better pain control. Patient requested his bring in a [employer] pizza for him and this request was relayed to her by phone. -DPOA/Advanced Directives/POLST-Full code; DPOAHC is his Additional Medical Diagnoses with primary management by Hospitalist team include : # Intractable pain refractory to oral medications secondary to malignancy, acute , present on admission. 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 # Right lower extremity swelling and erythema, acute, present on admission. Ongoing # Diabetes mellitus, type II, chronic. Presumed stable # Weakness, acute, present on admission. Ongoing # Constipation, acute, present on admission. Under therapy # Hypothyroidism, now on replacement # Hyponatremia, multifactorial. Fluid restriction in place Problems: End of Life Preferences Full code Goals of Care Goals of care continue to be chemotherapy and then radical cystectomy and prostatectomy Disposition home at discharge Resuscitation Status Resuscitation Status: CPR: Attempt Resuscitation POLST Updates/Changes POLST Discussed with: Patient . Pain: Moderate Symptom management: Anxiety, Pain Total time 60 minutes; >50% face to face with patient and family, providing counselling regarding plans and recommendations, and in care coordination with his medical teams. Palliative Brief Note Date of Service July 16, 2016 . Return to reevaluate patient. Prior to visiting, I spoke with his nurse, as well as Dr. Phipps of oncology and Dr. Curry of urology. Also called and updated his afterwards. When I arrived, he is resting quietly in bed. He is quite pale and is receiving blood transfusion now. Pain control has been pretty good except once in the night when he tangled his TV controller with his Weathers catheter and tugged on it- the resulting pain was severe and he used SDV PILOT/NAVIGATOR/DDS OPERATOR several times. This morning is managing with oral pain medications. His only specific request was for a sausage mushroom pizza from [employer] ( which request was relayed to his by me by phone). Talked about potential discharge dates with the patient and his - they feel very strongly that tomorrow would be a better day to attempt discharge, and I agree with this given the difficulties last night, his transfusion requirements , hyponatremia, etc. I relayed that recommendation on to the WELDING PRODUCTION SUPERVISOR/systems requirements planner. When I reviewed plans with Dr. Curry of urology, he indicated that he felt quite strongly that the patient should follow through with his scheduled office flexible cystoscopy next week for second look at the bladder tumor. He did not feel that there was any benefit to trying to do that inpatient today or tomorrow. He also noted that he would defer decisions about further imaging until after the repeat cystoscopy. Dr. Curry also did not feel that there would be anything gained by trying to switch Weathers catheter at this time- his recommendation was that current Weathers catheter should be left in place and change will be managed as needed during next week's office visit. Dr. Phipps had requested thyroid peroxidase antibody level to check for autoimmune thyroiditis- I have ordered this in [employer] (where it is identified as "TPO Auto Ab"). He did not feel that the patient's chemotherapy or neoplasm had anything to do with his hypothyroidism and it was simply an unfortunate coincidence (certainly, the patient could have had subclinical hypothyroidism progressing for some time). We had also discussed plans for second look by Dr. Curry as well as upcoming chemotherapy- Dr. Phipps plans to proceed with the third cycle of chemotherapy on Wednesday, July 20. On exam today, pale heavyset gentleman lying in bed. Appears fatigued but otherwise in no distress. Vital signs noted. Skin is warm and dry. Lungs clear, heart sounds regular, bowel tones normal, extremities without pitting edema, palpable cords or tenderness in the calves. Laboratory studies reviewed in detail. Thomas Naqvi MD July 16, 2016 11:25
[2016-07-16] MEDS: HYDROmorphone PCA 0.2 mg/mL 30 mL Inj IV PRN (15:31)
--- NOTE | 2016-07-16 23:04 | PCM.PNMED ---
Subjective Date of Service July 16, 2016 Subjective Patient is much more cheerful more talking to his . Palliative care did not feel he was ready for discharge today. Exam Vital Signs Vital Sign - Last Date Time Temp Pulse Resp B/P Pulse Ox O2 Delivery O2 Flow Rate FiO2 07/16/16 20:50 37.7 96 20 114/69 93 Room Air 07/12/16 19:32 2.00 Intake and Output 07/15/16 07/15/16 07/16/16 Cumulative From/Thru 15:00 23:00 07:00 07/05/16 20:32 - 07/16/16 06:46 Intake Total 717 ml 48802 ml Output Total 1350 ml 25898 ml Balance -633 ml -05971 ml Intake Oral 400 ml 47198 ml IV Total 317 ml 36335 ml Packed Cells 350 ml Output Urine Total 1350 ml 61336 ml # Bowel Movements 0 1 Exam Gen.: Laying in bed, pale appearing male HEENT: Normocephalic, atraumatic Heart: Regular rate and rhythm, no S3-S4 murmurs Lungs: Clear to auscultation bilaterally no crackles or wheezes Abdomen: Suprapubic tenderness, normal bowel sounds Extremities: Right lower extremity more swollen than left Neuro: No focal deficits Psych: Negative for anxiety IVs and Medications IV Fluids None Medications Reviewed: Medications were reviewed in detail Lab and Diagnostics Result Diagram: 07/16/16 0415 07/16/16 0415 Assessment & Plan 51-year-old gentleman with an unfortunate history of high grade papillary urothelial carcinoma s/p incomplete TURBT, DM2, and hyperlipidemia, that presented to [facility] with intractable pain refractory to oral medications secondary to malignancy, with associated right lower extremity swelling and redness, and urinary retention. 1 Intractable pain refractory to oral medications secondary to malignancy, acute , present on admission. Persistent with some improvement - Improved after change of the way Weathers cath on 07/06: We will request urology to see the patient prior to discharge this patient cannot be discharged on a Weathers with irrigation - Continue with IV Dilaudid HEALTH/SAFETY JOB TITLES, Palliative care managing pain medications -- Called Dr. Morales from urology regarding the 3-way Weathers with irrigation: She stated that she will see the patient 07/14, patient stated she did. Called her after she visited the patient, no return call was received. Need to discuss discharge planning with them -- We will continue to try and reach urology regarding discharge plannin/[address] Figueroa's note: "Plans have been home with catheter for now.Offered to pt change of his 22fr [address] to a smaller catheter to go home with. He prefers keeping the one he has because he does not want it to have to be changed/moved. Would have him f/u urology clinic in 2-3 weeks for catheter change (may downsize or address if he needs to keep it) at that time. will get an appointment time for him today (and communicate to the community affairs director) and he can call to change the time later if needed. " -- Also talked to Dr. Mendoza is enhanced environmental operator for urology, who discussed the case with Dr. joshua. They feel that patient can keep the three-way Weathers by capping of the irrigation port. This is conveyed to the staff. Urology recommends that the Weathers be kept. -- Follow-up with urology in one week after discharge 2 High-grade papillary urothelial carcinoma status post incomplete TURBT, chronic. - Incomplete TURBT 05/2016 s/p Chemotherapy - Leave 3-way Weathers indwelling and irrigate as needed with normal saline. - start seven days of Neupogen at 480 mcg subcutaneously daily, starting Wednesday, July 11. - White count may be elevated due to Neupogen -- Contacted oncology Dr. bynum 07/[address] Young was on vacation: Dr. Jaciel Allen Sr. give 1 dose of Neupogen 07/[address] Young when he returns -- 07/[address] Young, who opted for no neupogen on 07/15 based on his labs, Dr. Young will be in later to see the patient -- "1. Bladder cancer, status post two cycles of neoadjuvant dose-dense MVAC. I will contact Dr. Lizzy Curry tomorrow, and will try to schedule a followup cystoscopy for assessment of tumor response either this week or early next week. The patient is scheduled to start cycle three on Wednesday, July 20 at [facility]." -- 3 Right lower extremity swelling and erythema, acute, present on admission. Ongoing - US duplex 07/05: No DVT - ASO titer, PCT; negative - No antibiotics at this time 4 Diabetes mellitus, type II, chronic. Presumed stable - HbA1c 06/2016: 6.2. Blood glucose at target < 180 for last 2 days - continue SSI -- The patient is started on metformin 500 mg twice a day 5 Weakness, acute, present on admission. Ongoing - Likely secondary to chemotherapy effects - plan to return home with 6 Constipation, acute, present on admission. Under therapy - Likely secondary to opioid regimen - continue laxative regimen 7. Anemia: Likely due to chronic disease -- We will add iron panel, folate B12 reticulocyte count labs -- Daily CBC -- Patient received 1 unit of PRBC on 07/14 due to low hemoglobin 7.6 -- 07/15 started iron supplementation 8. Urinary tract infection with Enterococcusi: Noted from the culture from 07/13 -- Patient is put on ceftriaxone IV antibiotics: Switched to Cipro Cipro based on cultures 9. Hypothyroidism, not present on admission: This is a new diagnosis -- Sharply elevated TSH 44, T4 will be added 07/14 -- We will consider Synthroid -- 07/[address] Young: He recommends repeating the lab work prior to initiating the synthroid: Repeat labs showed similar findings -- Started.Patient on 50 g of thyroid supplement based on global R pH calculator - Acetaminophen as needed for mild pain/fever/headache - Bowel regimen as needed - Antiemetic as needed Acute hyponatremia 07/14: Improving -- Urine sodium urine osmolar D, serum osmolality, TSH, cortisol were all ordered and reviewed: Fluids were stopped due to suspicion for SIADH, 1 L fluid restriction is placed. TSH sharply elevated, T4 is added. -- Start patient on thyroid supplement -- Continue to follow daily labs -- Stopped Lasix as Dr. Young says this was initiated last admission due to fluid overload and edema: can be givne PRN -- 800 mL fluid restriction noon f/u sodium lab 07/15: Slowly improving Follow-up lab 07/16: Improving Patient admitted under inpatient status with expected length of stay > 2 midnights for severity of present symptoms, complexities of treatment plan and risk for adverse event Disposition: Need to have a plan for Weathers catheter placement, better pain control, urine sensitivities back prior to discharge . Pain Evaluation: Pain not Controlled GI Prophylaxis: Not indicated VTE Prophylaxis: Sub-Q Heparin (Unfractionated) VTE Mechanical Devices: Intermittant Pneumatic CD Resuscitation Status: CPR: Attempt Resuscitation Time spent 20 minutes Katherine Martinez DO July 16, 2016 23:04
[2016-07-17] VITALS (9 sets, daily range): BP systolic 107–147; BP diastolic 64–72; PULSE 95–99; RESP 16–20; O2SAT 92–95
[2016-07-17] MEDS: Heparin 5,000 Unit/mL Inj SUBQ SCH ×3 (00:49→17:09)
[2016-07-17] MEDS: Morphine ER 30 mg (MS Contin) Tablet PO SCH ×3 (00:49→17:09)
[2016-07-17] MEDS: HYDROmorphone PCA 0.2 mg/mL 30 mL Inj IV PRN ×2 (03:22→18:47)
[2016-07-17 07:27] LABS: Mean Corpuscular Hemoglobin 29.2 pg (27.0-35.0); Mean Corpuscular Volume 85.9 fL (81-100)
[2016-07-17] MEDS: Ondansetron 2 mg/mL 2 mL Inj IVPUSH PRN ×3 (08:33→20:11)
[2016-07-17] MEDS: Insulin LISPRO 300 Unit/3 mL Inj SUBQ SCH ×4 (08:34→22:44)
[2016-07-17] MEDS ORDERED: HYDR2TAB27 PO (08:47)
[2016-07-17] MEDS ORDERED: MORP-33 PO (08:47)
[2016-07-17] MEDS: 0.9% Sodium Chloride 250 ML IV SCH ×2 (08:55→18:47)
[2016-07-17] MEDS: Ciprofloxacin Inj 400 MG in IV Premix 1 EACH IV SCH ×2 (11:01→20:12)
[2016-07-17] MEDS: Polyethylene Glycol (PEG) 17 Gm Powder PO SCH ×2 (11:59→20:11)
--- NOTE | 2016-07-17 12:01 | PCM.PALLBR ---
Palliative Care Recommendation Pleasant 51-year-old gentleman with muscle invasive urothelial carcinoma, admitted with recurrent intractable pain. Palliative medicine consulted to assist with symptom management When I reviewed plans with Dr. Curry of urology on 07/16, he indicated that he felt quite strongly that the patient should follow through with his scheduled office flexible cystoscopy next week for second look at the bladder tumor. He did not feel that there was any benefit to trying to do that inpatient today or tomorrow. He also noted that he would defer decisions about further imaging until after the repeat cystoscopy. Dr. Curry also did not feel that there would be anything gained by trying to switch Weathers catheter at this time- his recommendation was that current Weathers catheter should be left in place and change will be managed as needed during next week's office visit. Today, I confirmed with Dr. Curry's office that his flexible cystoscopy is scheduled for next Wednesday, July 24, at 0945. This information was relayed to the patient and his . He will be going to the oncology office on Wednesday and Wednesday next week (July 20) for his next cycle of chemotherapy. Palliative office personnel will be in touch with the patient's by phone and try to coordinate outpatient palliative visit for some time Wednesday so that we can review his pain medications, etc. Summary of palliative recommendations: Pain- continue MS ER 120 mg Q 8 hr, with oral hydromorphone, now increased to 6- 8 mg every 3 hours as needed for breakthrough pain. CRITICAL CARE NURSE continues at bedside for prn use, but he is encouraged once again to try to transition over to only oral meds Anxiety- continue lorazepam prn Constipation-continue MiraLAX and senna scheduled twice daily Continue oxybutynin 5 mg PO TID for potential bladder spasms On levothyroxine. Thyroid peroxidase antibody level drawn per oncology and noted to be elevated at 62. Nutrition-poor with poor PO intake per dietary note- Encourage nutritious PO intake--again needs to get out of bed but that will only happen with better pain control. -DPOA/Advanced Directives/POLST-Full code; DPOAHC is his Additional Medical Diagnoses with primary management by Hospitalist team include : # Intractable pain refractory to oral medications secondary to malignancy, acute , present on admission. 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 # Right lower extremity swelling and erythema, acute, present on admission. Ongoing # Diabetes mellitus, type II, chronic. Presumed stable # Weakness, acute, present on admission. Ongoing # Constipation, acute, present on admission. Under therapy # Hypothyroidism, now on replacement # Hyponatremia, multifactorial. Fluid restriction in place Problems: End of Life Preferences Full code Goals of Care Goals of care continue to be chemotherapy and then radical cystectomy and prostatectomy Disposition home at discharge Resuscitation Status Resuscitation Status: CPR: Attempt Resuscitation POLST Updates/Changes POLST Discussed with: Patient . Pain: Moderate Symptom management: Anxiety, Pain Total time 55 minutes; >50% face to face with patient and family, providing counselling regarding plans and recommendations, and in care coordination with his medical teams. copies to: Pat Phipps MD; Fausto Salvador MD Palliative Brief Note Date of Service July 17, 2016 . Returned to reevaluate patient. Prior to visiting, reviewed his updated records in the EMR in detail. Spoke with his bedside nurse. After my conversation and evaluation with him, I contacted his by phone, then contacted the office of Dr. Curry of urology to confirm his follow-up visit for flexible cystoscopy next week, and then called his back again to update her. Also spoke with palliative office to coordinate outpatient palliative visit for the patient sometime next week (hopefully on Wednesday when he will be in town for his second day of chemotherapy). When I arrived, patient is lying in bed, appears fatigued and a little bit depressed. Admitted he had a poor night last night with some increased pain. Unfortunately, did not receive his medications for breakthrough pain as frequently as they could have been given. We talked at length about the need to stay ahead of his pain, to not try to wait until the pain becomes excruciating, but rather to use his additional prn pain medications early so as to prevent severe exacerbation. Also underlined once again the need to pretreat before any sort of activity. His exam remains stable with no significant changes. Laboratories reviewed in detail. Thomas Naqvi MD July 17, 2016 12:01
--- NOTE | 2016-07-17 16:58 | PCM.PNMED ---
Subjective Date of Service July 17, 2016 Subjective Patient is seen and examined. He is working with palliative care, states that his pain is not completely controlled yet. He is on morphine and Dilaudid by mouth. He has no other concerns Exam Vital Signs Vital Sign - Last Date Time Temp Pulse Resp B/P Pulse Ox O2 Delivery O2 Flow Rate FiO2 07/17/16 15:44 16 92 07/17/16 14:46 36.9 99 107/64 Room Air 07/12/16 19:32 2.00 Intake and Output 07/16/16 07/16/16 07/17/16 Cumulative From/Thru 15:00 23:00 07:00 07/05/16 20:32 - 07/17/16 06:48 Intake Total 550 ml 747 ml 614 ml 90168 ml Output Total 950 ml 500 ml 25659 ml Balance 550 ml -203 ml 114 ml -49555 ml Intake Oral 437 ml 300 ml 67218 ml IV Total 250 ml 310 ml 314 ml 89525 ml Packed Cells 300 ml 650 ml Output Urine Total 950 ml 500 ml 55023 ml # Bowel Movements 1 Exam Gen.: Laying in bed, pale appearing male HEENT: Normocephalic, atraumatic Heart: Regular rate and rhythm, no S3-S4 murmurs Lungs: Clear to auscultation bilaterally no crackles or wheezes Abdomen: Suprapubic tenderness, normal bowel sounds Extremities: Right lower extremity more swollen than left Neuro: No focal deficits Psych: Negative for anxiety IVs and Medications IV Fluids None Medications Reviewed: Medications were reviewed in detail Lab and Diagnostics Result Diagram: 07/17/1671907/17/16719 Assessment & Plan 51-year-old gentleman with an unfortunate history of high grade papillary urothelial carcinoma s/p incomplete TURBT, DM2, and hyperlipidemia, that presented to [facility] with intractable pain refractory to oral medications secondary to malignancy, with associated right lower extremity swelling and redness, and urinary retention. 1 Intractable pain refractory to oral medications secondary to malignancy, acute , present on admission. 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 Morales from urology regarding the 3-way Weathers with irrigation: She stated that she will see the patient 07/14, patient stated she did. Called her after she visited the patient, no return call was received. Need to discuss discharge planning with them -- We will continue to try and reach urology regarding discharge plannin/[address] Figueroa's note: "Plans have been home with catheter for now.Offered to pt change of his 22fr 3 way to a smaller catheter to go home with. He prefers keeping the one he has because he does not want it to have to be changed/moved. Would have him f/u urology clinic in 2-3 weeks for catheter change (may downsize or address if he needs to keep it) at that time. will get an appointment time for him today (and communicate to the director of community services) and he can call to change the time later if needed. " -- Also talked to Dr. Mendoza is manager production for urology, who discussed the case with Dr. joshua. They feel that patient can keep the three-way Weathers by capping of the irrigation port. This is conveyed to the staff. Urology recommends that the Weathers be kept. -- Follow-up with urology in one week after discharge for a cystoscopy 2 High-grade papillary urothelial carcinoma status post incomplete TURBT, chronic. - Incomplete TURBT 05/2016 s/p Chemotherapy - Leave 3-way Weathers indwelling and irrigate as needed with normal saline. - start seven days of Neupogen at 480 mcg subcutaneously daily, starting Wednesday, July 11. - White count may be elevated due to Neupogen -- Contacted oncology Dr. bynum 07/[address] Young was on vacation: Dr. Jaciel Allen Sr. give 1 dose of Neupogen 07/[address] Young when he returns -- 07/[address] Young, who opted for no neupogen on 07/15 based on his labs, Dr. Young will be in later to see the patient -- "1. Bladder cancer, status post two cycles of neoadjuvant dose-dense MVAC. I will contact Dr. Lizzy Curry tomorrow, and will try to schedule a followup cystoscopy for assessment of tumor response either this week or early next week. The patient is scheduled to start cycle three on Wednesday, July 20 at [facility]." -- Patient is continued on by mouth Dilaudid and morphine, doses adjusted today per Dr. bagley. --"When I arrived, patient is lying in bed, appears fatigued and a little bit depressed. Admitted he had a poor night last night with some increased pain. Unfortunately, did not receive his medications for breakthrough pain as frequently as they could have been given. We talked at length about the need to stay ahead of his pain, to not try to wait until the pain becomes excruciating, but rather to use his additional prn pain medications early so as to prevent severe exacerbation. Also underlined once again the need to pretreat before any sort of activity." 3 Right lower extremity swelling and erythema, acute, present on admission. Ongoing - US duplex 07/05: No DVT - ASO titer, PCT; negative - No antibiotics at this time 4 Diabetes mellitus, type II, chronic. Presumed stable - HbA1c 06/2016: 6.2. Blood glucose at target < 180 for last 2 days - continue SSI -- The patient is started on metformin 500 mg twice a day 5 Weakness, acute, present on admission. Ongoing - Likely secondary to chemotherapy effects - plan to return home with 6 Constipation, acute, present on admission. Under therapy - Likely secondary to opioid regimen - continue laxative regimen 7. Anemia: Likely due to chronic disease -- We will add iron panel, folate B12 reticulocyte count labs -- Daily CBC -- Patient received 1 unit of PRBC on 07/14 due to low hemoglobin 7.6 -- 07/15 started iron supplementation -- 07/16 he received another unit of blood 8. Urinary tract infection with Enterococcusi: Noted from the culture from 07/13 -- Patient is put on ceftriaxone IV antibiotics: Switched to Cipro Cipro based on cultures 9. Hypothyroidism, not present on admission: This is a new diagnosis -- Sharply elevated TSH 44, T4 will be added 07/14 -- We will consider Synthroid -- 07/[address] Young: He recommends repeating the lab work prior to initiating the synthroid: Repeat labs showed similar findings -- Started.Patient on 50 g of thyroid supplement based on global R pH calculator -- Positive TPO antibodies. - Acetaminophen as needed for mild pain/fever/headache - Bowel regimen as needed - Antiemetic as needed Acute hyponatremia 07/14: Improving -- Urine sodium urine osmolar D, serum osmolality, TSH, cortisol were all ordered and reviewed: Fluids were stopped due to suspicion for SIADH, 1 L fluid restriction is placed. TSH sharply elevated, T4 is added. -- Start patient on thyroid supplement -- Continue to follow daily labs -- Stopped Lasix as Dr. Young says this was initiated last admission due to fluid overload and edema: can be givne PRN -- 800 mL fluid restriction -- f/u lab 07/17/ p,m noon f/u sodium lab 07/15: Slowly improving Follow-up lab 07/16: Improving Patient admitted under inpatient status with expected length of stay > 2 midnights for severity of present symptoms, complexities of treatment plan and risk for adverse event Disposition: Need to have a plan for Weathers catheter placement, better pain control, urine sensitivities back prior to discharge . Pain Evaluation: Pain not Controlled GI Prophylaxis: Not indicated VTE Prophylaxis: Sub-Q Heparin (Unfractionated) VTE Mechanical Devices: Intermittant Pneumatic CD Resuscitation Status: CPR: Attempt Resuscitation Time spent 25 min Katherine Martinez DO July 17, 2016 16:16
[2016-07-18] VITALS (9 sets, daily range): BP systolic 101–130; BP diastolic 64–75; PULSE 94–100; RESP 14–20; O2SAT 93–100
[2016-07-18] MEDS: Heparin 5,000 Unit/mL Inj SUBQ SCH ×3 (00:38→17:08)
[2016-07-18] MEDS: Morphine ER 30 mg (MS Contin) Tablet PO SCH ×3 (00:39→17:09)
[2016-07-18] MEDS: HYDROmorphone PCA 0.2 mg/mL 30 mL Inj IV PRN ×2 (05:00→13:10)
[2016-07-18] MEDS: Ondansetron 2 mg/mL 2 mL Inj IVPUSH PRN ×3 (07:33→21:31)
[2016-07-18] MEDS: 0.9% Sodium Chloride 250 ML IV SCH ×2 (08:55→12:10)
[2016-07-18] MEDS: Insulin LISPRO 300 Unit/3 mL Inj SUBQ SCH ×4 (09:30→22:00)
[2016-07-18] MEDS: Ciprofloxacin Inj 400 MG in IV Premix 1 EACH IV SCH ×2 (09:35→21:38)
[2016-07-18] MEDS: Polyethylene Glycol (PEG) 17 Gm Powder PO SCH ×2 (09:35→21:34)
--- NOTE | 2016-07-18 13:30 | PCM.PALLBR ---
Palliative Brief Note Date of Service July 18, 2016 . Reviewed patient's use of all narcotics, particularly his continuing need for IV hydromorphone for breakthrough pain. His discomfort remains remarkably difficult to control. Concerned that pushing oral MS dosing up further may start causing significant side effects. Will try adding topical fentanyl, 50 mcg patch initially, and continue other pain meds as before. If inadequate relief, increase patch size in 24 hours. Thomas Naqvi MD July 18, 2016 13:30
--- NOTE | 2016-07-18 15:10 | CONS ---
[address] [address] CONSULTATION REPORT PATIENT: DIANA CROWELL : 1965 MR#: [id number] ADMIT: 07/06/2016 JOB ID: [id number] DATE OF SERVICE: 07/18/2016 REQUESTING PHYSICIAN: Dr. Martinez. REASON FOR CONSULTATION: Management for hyponatremia. PRESENT ILLNESS: This is a very pleasant, 51-year-old gentleman with significant past medical history of high grade papillary urothelial carcinoma, status post incomplete TURBT, dyslipidemia, obesity, type 2 diabetes, who presented to the hospital with a complaint of severe pain. The patient was then admitted for pain control. She has been hospitalized since July 04, 2016. Currently, patient is on IV Dilaudid PATIENT AMBASSADOR. Also, found to have urinary retention. Patient had a Weathers catheter placement with the irrigation. He also is being treated for Enterococcus UTI. Patient was found to have persistent hyponatremia. The lowest serum sodium during this hospitalization was 128. The patient has been treated as SIADH. The patient was put on the fluid restriction. However, his serum sodium remains on the low side. Hence, nephrology service was consulted for further management. Even though patient has been on the fluid restriction when I reviewed his Is&Os, it seems like the total input was over 1-2 L every day. Of note, he was on the IV Cipro 400 mg every 12 hours. During my visit today, he is awake, alert. The patient has been evaluated by Palliative Care. The patient has been on the Dilaudid PATIENT AMBASSADOR, as well as p.o. morphine and Dilaudid as needed. PAST MEDICAL HISTORY: High-grade papillary urothelial carcinoma, status post incomplete TURBT, type 2 diabetes, history of postoperative cardiac arrest. Postoperative acute blood loss. Dyslipidemia. SURGICAL HISTORY: 1. Status post left shoulder arthroscopy. 2. Transurethral resection of bladder tumor in May 2016, complicated by acute blood loss and cardiac and respiratory failure. FAMILY HISTORY: No kidney disease in the family. SOCIAL HISTORY: Patient was an [employer] . He denies current use of alcohol, tobacco, or illicit drugs. ALLERGIES: NO KNOWN DRUG ALLERGIES. REVIEW OF SYSTEMS: Fourteen point review of systems was performed. PHYSICAL EXAM: Vitals: Temperature 36.8, pulse 100, blood pressure 126/75, respiratory rate 18, O2 sat 93% on room air. General appearance: Awake, alert, oriented x3. In mild distress. Moderate pain. HEENT: Mild pallor. No icteric sclerae. No JVD. No lymphadenopathy. No thyroid enlargement. Atraumatic. Moist mucous membranes. PERRLA. Heart: Regular rhythm. Normal S1, S2. No murmurs, rubs, or gallops. Lungs: Clear to auscultation bilaterally. No wheezing. No rhonchi. Abdomen: Soft, obese, nontender, nondistended. No hepatosplenomegaly. : Weathers catheter in place. Extremity: Chronic lower extremity swelling, right more than left. LABORATORY: WBC 3.8, hemoglobin 8.3, sodium 131, potassium 4.5, chloride 93, bicarb 26, BUN 12, creatinine 0.49. INR 0.95. Urine osmolarity 447, urine sodium 143, serum osmo 237. ASSESSMENT: 1. Chronic hyponatremia secondary to SIADH. The patient has received a total intake over 1 L including oral and IV medications. At this point, I would like to double concentrate his IV medication, continue the total intake of 1 L per day. Will add the salt tab 1 g three times a day. If this approach does not help I would recommend to start patient on tolvaptan. 2. Intractable pain due to malignancy. 3. High-grade papular urothelial cancer, status post incomplete transurethral resection of bladder tumor. 4. Chronic lower extremity swelling. Rule out lymphedema. 5. History of cardiorespiratory failure, post operation in May 2016. 6. Urinary tract infection. PLAN: 1. Continue fluid restriction for all fluid intake 1 L per day including oral and IV administration. 2. Start salt tab 1 g t.i.d. 3. Repeat BMP and serum osmo and urine osmo tomorrow. 4. May consider tolvaptan if the serum sodium is not corrected. Thank you for the consultation. We will monitor along with you. SHARLENE
--- NOTE | 2016-07-18 17:41 | PCM.PNMED ---
Subjective Date of Service July 18, 2016 Subjective Patient is seen and examined. He states that he is doing okay now he has a fentanyl patch on and his pain pump is being weaned off. He is seen by nephrology, to determine discharge planning with his hyponatremia. Patient has no other concerns Exam Vital Signs Vital Sign - Last Date Time Temp Pulse Resp B/P Pulse Ox O2 Delivery O2 Flow Rate FiO2 07/18/16 15:39 36.4 94 16 106/68 94 Room Air 07/12/16 19:32 2.00 Intake and Output 07/17/16 07/17/16 07/18/16 Cumulative From/Thru 15:00 23:00 07:00 07/05/16 20:32 - 07/18/16 05:40 Intake Total 574 ml 694 ml 80384 ml Output Total 500 ml 750 ml 19841 ml Balance 74 ml -56 ml -02080 ml Intake Oral 574 ml 400 ml 82987 ml IV Total 294 ml 81494 ml Packed Cells 650 ml Output Urine Total 500 ml 750 ml 26919 ml # Bowel Movements 1 Exam Gen.: Laying in bed, pale appearing male HEENT: Normocephalic, atraumatic Heart: Regular rate and rhythm, no S3-S4 murmurs Lungs: Clear to auscultation bilaterally no crackles or wheezes Abdomen: Suprapubic tenderness, normal bowel sounds Extremities: Right lower extremity more swollen than left Neuro: No focal deficits Psych: Negative for anxiety IVs and Medications IV Fluids None Medications Reviewed: Medications were reviewed in detail Lab and Diagnostics Result Diagram: 07/18/16 0958 07/18/16 0958 Assessment & Plan 51-year-old gentleman with an unfortunate history of high grade papillary urothelial carcinoma s/p incomplete TURBT, DM2, and hyperlipidemia, that presented to [facility] with intractable pain refractory to oral medications secondary to malignancy, with associated right lower extremity swelling and redness, and urinary retention. 1 Intractable pain refractory to oral medications secondary to malignancy, acute , present on admission. Persistent with some improvement - Improved after change of the way Weathers cath on 07/06: We will request urology to see the patient prior to discharge this patient cannot be discharged on a Weathers with irrigation - Continue with IV Dilaudid FAMILY PRESERVATION CASEWORKER, Palliative care managing pain medications -- Called Dr. Morales from urology regarding the 3-way Weathers with irrigation: She stated that she will see the patient 07/14, patient stated she did. Called her after she visited the patient, no return call was received. Need to discuss discharge planning with them -- We will continue to try and reach urology regarding discharge plannin/[address] Figueroa's note: "Plans have been home with catheter for now.Offered to pt change of his 22fr 3 way to a smaller catheter to go home with. He prefers keeping the one he has because he does not want it to have to be changed/moved. Would have him f/u urology clinic in 2-3 weeks for catheter change (may downsize or address if he needs to keep it) at that time. will get an appointment time for him today (and communicate to the unit clerk) and he can call to change the time later if needed. " -- Also talked to Dr. Mendoza is electronic game developer for urology, who discussed the case with Dr. joshua. They feel that patient can keep the three-way Weathers by capping of the irrigation port. This is conveyed to the staff. Urology recommends that the Weathers be kept. -- Follow-up with urology in one week after discharge for a cystoscopy -- The patient is currently on a 50 g fentanyl patch, started on 07/18. FAMILY PRESERVATION CASEWORKER pump is being discontinued. Orders are piut in Dilaudid 1 mg every 3 hours when necessary for 07/18 night. Discussed this with Dr.. Naqvi over the phone and he recommended this protocol. 2 High-grade papillary urothelial carcinoma status post incomplete TURBT, chronic. - Incomplete TURBT 05/2016 s/p Chemotherapy - Leave 3-way Weathers indwelling and irrigate as needed with normal saline. - start seven days of Neupogen at 480 mcg subcutaneously daily, starting July 11. - White count may be elevated due to Neupogen -- Contacted oncology Dr. bynum 07/[address] Young was on vacation: Dr. Jaciel Allen Sr. give 1 dose of Neupogen 07/[address] Young when he returns -- 07/[address] Young, who opted for no neupogen on 07/15 based on his labs, Dr. Young will be in later to see the patient -- "1. Bladder cancer, status post two cycles of neoadjuvant dose-dense MVAC. I will contact Dr. Lizzy Curry tomorrow, and will try to schedule a followup cystoscopy for assessment of tumor response either this week or early next week. The patient is scheduled to start cycle three on Wednesday, July 20 at [facility]." -- Patient is continued on by mouth Dilaudid and morphine, doses adjusted today per Dr. naqvi. --"When I arrived, patient is lying in bed, appears fatigued and a little bit depressed. Admitted he had a poor night last night with some increased pain. Unfortunately, did not receive his medications for breakthrough pain as frequently as they could have been given. We talked at length about the need to stay ahead of his pain, to not try to wait until the pain becomes excruciating, but rather to use his additional prn pain medications early so as to prevent severe exacerbation. Also underlined once again the need to pretreat before any sort of activity." 3 Right lower extremity swelling and erythema, acute, present on admission. Ongoing - US duplex 07/05: No DVT - ASO titer, PCT; negative 4 Diabetes mellitus, type II, chronic. Presumed stable - HbA1c 06/2016: 6.2. Blood glucose at target < 180 for last 2 days - continue SSI -- The patient is started on metformin 500 mg twice a day 5 Weakness, acute, present on admission. Ongoing - Likely secondary to chemotherapy effects - plan to return home with 6 Constipation, acute, present on admission. Under therapy - Likely secondary to opioid regimen - continue laxative regimen 7. Anemia: Likely due to chronic disease -- We will add iron panel, folate B12 reticulocyte count labs -- Daily CBC -- Patient received 1 unit of PRBC on 07/14 due to low hemoglobin 7.6 -- 07/15 started iron supplementation -- 07/16 he received another unit of blood 8. Urinary tract infection with Enterococcusi: Noted from the culture from 07/13 -- Patient is put on ceftriaxone IV antibiotics: Switched to Cipro based on cultures -- February 17 of antibiotic Cipro. Considering he has an indwelling catheter, which will be there in the future may need to discuss his home-going dose and duration with Dr. Cameron. 9. Hypothyroidism, not present on admission: This is a new diagnosis -- Sharply elevated TSH 44, T4 will be added 07/14 -- We will consider Synthroid -- 07/[address] Young: He recommends repeating the lab work prior to initiating the synthroid: Repeat labs showed similar findings -- Started.Patient on 50 g of thyroid supplement based on global R pH calculator -- Positive TPO antibodies. This can be used to guide future therapy. - Acetaminophen as needed for mild pain/fever/headache - Bowel regimen as needed - Antiemetic as needed Acute hyponatremia 07/14: Improving -- Urine sodium urine osmolar D, serum osmolality, TSH, cortisol were all ordered and reviewed: Fluids were stopped due to suspicion for SIADH, 1 L fluid restriction is placed. TSH sharply elevated, T4 is added. -- Start patient on thyroid supplement -- Continue to follow daily labs -- Stopped Lasix as Dr. Young says this was initiated last admission due to fluid overload and edema: can be givne PRN -- 800 mL fluid restriction -- f/u lab 07/17/ ,m -- Patient is now on a 1 L fluid restriction, concentrated Cipro dosing per Dr. david, was consulted on 07/18. She also started him on sodium tablets 1 mg by mouth 3 times a day. She ordered some follow-up urine tests her osmolality . We appreciate her recommendations. Follow-up lab 07/18: pm Patient admitted under inpatient status with expected length of stay > 2 midnights for severity of present symptoms, complexities of treatment plan and risk for adverse event Disposition: Need to have a plan for Weathers catheter placement, better pain control, urine sensitivities back prior to discharge . Pain Evaluation: Adequate Pain Control GI Prophylaxis: Not indicated VTE Prophylaxis: Sub-Q Heparin (Unfractionated) VTE Mechanical Devices: Intermittant Pneumatic CD Resuscitation Status: CPR: Attempt Resuscitation Time spent 30 minutes Katherine Martinez DO July 18, 2016 16:44
[2016-07-18] MEDS: LORazepam 1 mg Tablet PO PRN (21:32)
[2016-07-19] MEDS: Morphine ER 30 mg (MS Contin) Tablet PO SCH ×3 (00:30→16:51)
[2016-07-19] MEDS: Heparin 5,000 Unit/mL Inj SUBQ SCH ×3 (00:35→16:35)
[2016-07-19] MEDS: 0.9% Sodium Chloride 250 ML IV SCH ×2 (01:25→22:27)
[2016-07-19 01:30] VITALS: BP 100/62; PULSE 103; RESP 20; O2SAT 95
[2016-07-19] MEDS: LORazepam 1 mg Tablet PO PRN ×2 (03:14→10:36)
[2016-07-19 04:28] LABS: OSMOLALITY, URINE 663 mOs/kH2O (250-1200)
[2016-07-19 05:30] VITALS: BP 109/63; PULSE 92; RESP 20; O2SAT 95
[2016-07-19 06:02] LABS: Mean Corpuscular Hemoglobin 29.6 pg (27.0-35.0); Mean Corpuscular Volume 96.1 fL (81-100)
[2016-07-19] MEDS: Ciprofloxacin Inj 400 MG in IV Premix 1 EACH IV SCH ×2 (08:12→20:52)
[2016-07-19] MEDS: Polyethylene Glycol (PEG) 17 Gm Powder PO SCH ×2 (08:14→20:52)
[2016-07-19] MEDS: Insulin LISPRO 300 Unit/3 mL Inj SUBQ SCH ×4 (08:15→22:00)
[2016-07-19] MEDS: Ondansetron 2 mg/mL 2 mL Inj IVPUSH PRN ×3 (08:19→20:58)
[2016-07-19] MEDS: HYDROmorphone 1 mg/mL Inj IVPUSH PRN ×2 (08:37→16:35)
[2016-07-19] MEDS ORDERED: LEVO50TA6 PO (09:14)
[2016-07-19] MEDS ORDERED: Fentanyl TOPICAL (09:14)
[2016-07-19] MEDS ORDERED: METF500T PO (09:14)
[2016-07-19] MEDS ORDERED: HYDR2TAB27 PO (09:14)
[2016-07-19] MEDS ORDERED: FERR-74 PO (09:14)
[2016-07-19] MEDS ORDERED: TRAZ-115 PO (09:14)
[2016-07-19 09:24] LABS: Magnesium 1.9 mg/dL (1.6-2.6); Phosphorus 3.9 mg/dL (2.5-4.9)
[2016-07-19] MEDS ORDERED: HYDROmorphone 1 mg/mL Inj IVPUSH PRN (09:35)
--- NOTE | 2016-07-19 10:23 | PCM.PNMED ---
Subjective Date of Service July 19, 2016 Subjective Patient is seen and examined. He states he could not keep up with pain last evening after the PELLET PRESS OPERATOR pump was disconnected. This morning and additional 1 mg Dilaudid dose was given. No other concerns Exam Vital Signs Vital Sign - Last Date Time Temp Pulse Resp B/P Pulse Ox O2 Delivery O2 Flow Rate FiO2 07/19/16 05:30 36.7 92 20 109/63 95 Room Air Intake and Output 07/18/16 07/18/16 07/19/16 Cumulative From/Thru 15:00 23:00 07:00 07/05/16 20:32 - 07/19/16 06:41 Intake Total 816 ml 681 ml 46957 ml Output Total 1100 ml 575 ml 81278 ml Balance -284 ml 106 ml -53234 ml Intake Oral 474 ml 400 ml 56722 ml IV Total 342 ml 281 ml 92767 ml Packed Cells 650 ml Output Urine Total 1100 ml 575 ml 20299 ml # Bowel Movements 0 1 Exam Gen.: Laying in bed, pale appearing male HEENT: Normocephalic, atraumatic Heart: Regular rate and rhythm, no S3-S4 murmurs Lungs: Clear to auscultation bilaterally no crackles or wheezes Abdomen: Nontender, obese abdomen, normal bowel sounds Extremities: Right lower extremity more swollen than left Neuro: No focal deficits Psych: Slightly agitated IVs and Medications Medications Reviewed: Medications were reviewed in detail Lab and Diagnostics Result Diagram: 07/19/1653907/19/16539 Assessment & Plan 51-year-old gentleman with an unfortunate history of high grade papillary urothelial carcinoma s/p incomplete TURBT, DM2, and hyperlipidemia, that presented to [facility] with intractable pain refractory to oral medications secondary to malignancy, with associated right lower extremity swelling and redness, and urinary retention. 1 Intractable pain refractory to oral medications secondary to malignancy, acute , present on admission. Persistent with some improvement - Improved after change of the way Weathers cath on 07/06: We will request urology to see the patient prior to discharge this patient cannot be discharged on a Weathers with irrigation - Continue with IV Dilaudid PELLET PRESS OPERATOR, Palliative care managing pain medications -- Called Dr. Morales from urology regarding the 3-way Weathers with irrigation: She stated that she will see the patient 07/14, patient stated she did. Called her after she visited the patient, no return call was received. Need to discuss discharge planning with them -- We will continue to try and reach urology regarding discharge plannin/[address] Figueroa's note: "Plans have been home with catheter for now.Offered to pt change of his 22fr [address] to a smaller catheter to go home with. He prefers keeping the one he has because he does not want it to have to be changed/moved. Would have him f/u urology clinic in 2-3 weeks for catheter change (may downsize or address if he needs to keep it) at that time. will get an appointment time for him today (and communicate to the online community manager) and he can call to change the time later if needed. " -- Also talked to Dr. Mendoza is medication care manager for urology, who discussed the case with Dr. joshua. They feel that patient can keep the three-way Weathers by capping of the irrigation port. This is conveyed to the staff. Urology recommends that the Weathers be kept. -- Follow-up with urology in one week after discharge for a cystoscopy -- The patient is currently on a 50 g fentanyl patch, started on 07/18. PELLET PRESS OPERATOR pump is being discontinued. Orders are piut in Dilaudid 1 mg every 3 hours when necessary for 07/18 night. Discussed this with Dr.. Naqvi over the phone and he recommended this protocol. -- We will touch base with Dr. Naqvi again 07/19. Patient is currently in morphine sulfate 120 mg extended release every 8 hours, fentanyl patch 50 g introduced 07/18 afternoon. He also has by mouth 8 mg Dilaudid every 3 hours when necessary for breakthrough. On 07/18 we also put in 1 mg IV every 3 when necessary Dilaudid dosing. His fentanyl patch should start working 07/19 evening. -- -- Patient is continued on by mouth Dilaudid and morphine, doses adjusted today per Dr. naqvi. --"When I arrived, patient is lying in bed, appears fatigued and a little bit depressed. Admitted he had a poor night last night with some increased pain. Unfortunately, did not receive his medications for breakthrough pain as frequently as they could have been given. We talked at length about the need to stay ahead of his pain, to not try to wait until the pain becomes excruciating, but rather to use his additional prn pain medications early so as to prevent severe exacerbation. Also underlined once again the need to pretreat before any sort of activity." -- Called Dr. Naqvi who has made changes to his pain medication regimen: Increased his fentanyl to 75 g, he is also on dilaudid PO 6-8 mg PO Q3HPRN, IV dilaudid 1 mg Q3H PRN. 2 High-grade papillary urothelial carcinoma status post incomplete TURBT, chronic. - Incomplete TURBT 05/2016 s/p Chemotherapy - Leave 3-way Weathers indwelling and irrigate as needed with normal saline. - start seven days of Neupogen at 480 mcg subcutaneously daily, starting July 11. - White count may be elevated due to Neupogen -- Contacted oncology Dr. bynum 07/[address] Young was on vacation: Dr. Jaciel Allen Sr. give 1 dose of Neupogen 07/[address] Young when he returns -- 07/[address] Young, who opted for no neupogen on 07/15 based on his labs, Dr. Young will be in later to see the patient -- "1. Bladder cancer, status post two cycles of neoadjuvant dose-dense MVAC. I will contact Dr. Lizzy Curry tomorrow, and will try to schedule a followup cystoscopy for assessment of tumor response either this week or early next week. The patient is scheduled to start cycle three on Wednesday, July 20 at [facility]." 3 Right lower extremity swelling and erythema, acute, present on admission. Ongoing - US duplex 07/05: No DVT - ASO titer, PCT; negative 4 Diabetes mellitus, type II, chronic. Presumed stable - HbA1c 06/2016: 6.2. Blood glucose at target < 180 for last 2 days - continue SSI -- The patient is started on metformin 500 mg twice a day 5 Weakness, acute, present on admission. Ongoing - Likely secondary to chemotherapy effects - plan to return home with 6 Constipation, acute, present on admission. Under therapy - Likely secondary to opioid regimen - continue laxative regimen 7. Anemia: Likely due to chronic disease -- We will add iron panel, folate B12 reticulocyte count labs -- Daily CBC -- Patient received 1 unit of PRBC on 07/14 due to low hemoglobin 7.6 -- 07/15 started iron supplementation -- 07/16 he received another unit of blood -- Stable 8. Urinary tract infection with Enterococcusi: Noted from the culture from 07/13 -- Patient is put on ceftriaxone IV antibiotics: Switched to Cipro based on cultures -- Caryl has switched the dosing of antibiotic Cipro as he is on a fluid restriction. Considering he has an indwelling catheter, which will be there in the future may need to discuss his home-going dose and duration with Dr. Cameron. 9. Hypothyroidism, not present on admission: This is a new diagnosis -- Sharply elevated TSH 44, T4 will be added 07/14 -- We will consider Synthroid -- 07/[address] Young: He recommends repeating the lab work prior to initiating the synthroid: Repeat labs showed similar findings -- Started.Patient on 50 g of thyroid supplement based on global R pH calculator -- Positive TPO antibodies. This can be used to guide future therapy. - Acetaminophen as needed for mild pain/fever/headache - Bowel regimen as needed - Antiemetic as needed Acute hyponatremia 07/14: Improving -- Urine sodium urine osmolar D, serum osmolality, TSH, cortisol were all ordered and reviewed: Fluids were stopped due to suspicion for SIADH, 1 L fluid restriction is placed. TSH sharply elevated, T4 is added. -- Start patient on thyroid supplement -- Continue to follow daily labs -- Stopped Lasix as Dr. Young says this was initiated last admission due to fluid overload and edema: can be givne PRN -- Patient is now on a 1 L fluid restriction, concentrated Cipro dosing per Nephro, who were consulted on 07/18. She also started him on sodium tablets 1 mg by mouth 3 times a day. She ordered some follow-up urine tests her osmolality . We appreciate her recommendations. -- Nephrology has lowered the fluid restriction to 1L and changed cipro dosing on 07/18. -- Sodium 132 5/7 AM: Will discuss home-going instructions for hyponatremia with nephrology -- Nephrology recommends that patient remain on 1 L fluid restriciton if sodium levels improve prior to d/c. If they remain flat, may d/c patient on sodium tablets [address], get a f/u BMP and have the patient f/u with nephrology in one week. Patient admitted under inpatient status with expected length of stay > 2 midnights for severity of present symptoms, complexities of treatment plan and risk for adverse event Disposition: Urology recommended that we leave the Weathers in with the irrigation port As patient is not tolerating Weathers replacements and removals. They do not see any problem with patient completing 10-14 day course of Cipro. Discussed antibiotics to Dr. Cameron who also agrees that patient did not necessarily need prophylactic antibiotics. The current concern is that patient's pain is not under control. Please contact palliative care and work closely with them on patient's discharge. Patient will need a one-week follow-up at the time of discharge with nephro as above. He will need a follow-up with urology for a cystoscopy in one week following discharge. He will need a follow-up with palliative care as well. Patient is expected to go home on home health care. Pain Evaluation: Pain not Controlled GI Prophylaxis: Not indicated VTE Prophylaxis: Sub-Q Heparin (Unfractionated) VTE Mechanical Devices: Intermittant Pneumatic CD Resuscitation Status: CPR: Attempt Resuscitation Time spent 25 minutes Katherine Martinez DO July 19, 2016 10:23
--- NOTE | 2016-07-19 10:47 | PCM.PALLBR ---
Palliative Brief Note Date of Service July 19, 2016 . Reviewed overnight status and discussed with Dr. Martinez. Continues with pain, perhaps slightly better. No excessive somnolence, confusion , etc. Use of MECHANICAL SUPERVISOR for breakthrough slightly less. Will increase fentanyl to 75 mcg/hr patch and continue to follow and adjust as needed. See my note of 07/18 for details re: medication choices/options. Thomas Naqvi MD July 19, 2016 10:47
--- NOTE | 2016-07-19 13:39 | PCM.PNNEPH ---
Subjective Date of Service July 19, 2016 Subjective Per his , patient became very drowsy after he had received IV Dilaudid. Salt tab was added yesterday. His serum sodium and serum osm today have trended. He does not have any lower extremity swelling. Exam Vital Signs Vital Sign - Last Date Time Temp Pulse Resp B/P Pulse Ox O2 Delivery O2 Flow Rate FiO2 07/19/16 05:30 36.7 92 20 109/63 95 Room Air Intake and Output 07/18/16 07/18/16 07/19/16 Cumulative From/Thru 15:00 23:00 07:00 07/05/16 20:32 - 07/19/16 06:41 Intake Total 816 ml 681 ml 51850 ml Output Total 1100 ml 575 ml 07387 ml Balance -284 ml 106 ml -58820 ml Intake Oral 474 ml 400 ml 55079 ml IV Total 342 ml 281 ml 86570 ml Packed Cells 650 ml Output Urine Total 1100 ml 575 ml 65012 ml # Bowel Movements 0 1 Exam General appearance: Awake, alert, oriented x3. In mild distress. Moderate pain. HEENT: Mild pallor. No icteric sclerae. No JVD. No lymphadenopathy. No thyroid enlargement. Atraumatic. Moist mucous membranes. PERRLA. Heart: Regular rhythm. Normal S1, S2. No murmurs, rubs, or gallops. Lungs: Clear to auscultation bilaterally. No wheezing. No rhonchi. Abdomen: Soft, obese, nontender, nondistended. No hepatosplenomegaly. : Weathers catheter in place. Extremity: No significant lower extremity swelling. Lab and Diagnostics Result Diagram: 07/19/1653907/19/16539 Plan Impression 1. Chronic hyponatremia secondary to SIADH. 2. Intractable pain due to malignancy. 3. High-grade papillar urothelial cancer, status post incomplete transurethral resection of bladder tumor. 4. History of hematologic shock and cardiorespiratory failure, postsurgery in May 2016. 5. Urinary tract infection. Plan: 1. Continue fluid restriction for all fluid intake 1 L per day including oral and IV administration. 2. Continue salt tab 1 g t.i.d. 3. Repeat BMP in the morning. Ryan Freitas MD July 19, 2016 13:39 Ryan Freitas MD July 19, 2016 13:39
[2016-07-19 14:44] VITALS: BP 106/63; PULSE 97; RESP 16; O2SAT 97
[2016-07-19 20:25] VITALS: BP 100/64; PULSE 94; RESP 20; O2SAT 96
[2016-07-20] MEDS: Morphine ER 30 mg (MS Contin) Tablet PO SCH ×3 (00:03→16:58)
[2016-07-20 00:45] VITALS: BP 117/71; PULSE 99; RESP 20; O2SAT 97
[2016-07-20] MEDS: Heparin 5,000 Unit/mL Inj SUBQ SCH ×3 (00:49→16:58)
[2016-07-20] MEDS: HYDROmorphone 1 mg/mL Inj IVPUSH PRN ×5 (00:49→18:22)
[2016-07-20 05:55] VITALS: BP 106/60; PULSE 93; RESP 20; O2SAT 98
[2016-07-20 05:58] LABS: Magnesium 1.9 mg/dL (1.6-2.6); Phosphorus 3.8 mg/dL (2.5-4.9)
[2016-07-20] MEDS: Ondansetron 2 mg/mL 2 mL Inj IVPUSH PRN ×3 (08:53→20:14)
[2016-07-20] MEDS: Ciprofloxacin Inj 400 MG in IV Premix 1 EACH IV SCH ×2 (08:53→20:08)
[2016-07-20] MEDS: Polyethylene Glycol (PEG) 17 Gm Powder PO SCH ×2 (08:58→20:08)
[2016-07-20] MEDS: Insulin LISPRO 300 Unit/3 mL Inj SUBQ SCH ×4 (08:59→22:45)
--- NOTE | 2016-07-20 11:14 | PCM.PALLBR ---
Palliative Care Recommendation Pleasant 51-year-old gentleman with muscle invasive urothelial carcinoma, admitted with recurrent intractable pain. Palliative medicine consulted to assist with symptom management Outpatient palliative followup scheduled for July 15 at 1430. Discharge on hold due to fever and leukocytosis Summary of palliative recommendations: 07/20/1647-Bghh-Qfjzwtaoqfl narcotic requirement. Now on MS 120 mg TID with Fentanyl 75 mg Q 3 d started yesterday with HM 8 mg Q 3 for BTP. He feels this is working. He thinks he can manage at home with HH. He thinks pretreating for activity or BM etc with his HM 8 will work. Debility and fatigue-Knows he will be wiped out by chemo and hopes to be strong enough to go home on wed with HH assist and his meds. Enterococcal UTI-will be going home with catheter. Presume makes sense to leave this in until outpatient cysto on [facility] when it can be changed out with smaller cath. Bladder CA- will check with Dr. Phipps about time of next/follow up CT Depression/anx-will start low dose sertraline. 07/15/16-Pain- MSER at 120 tid. Intolerant of decrease of HM to 4- now back to 6 mg. Considering gabapentin UTI- enterococcal- ? if cath needs to be changed. Antibiotics by hospitalist Depression/anx re pain-reviewed ? challenges of ds, pain, sense of loss of control etc. He is willing to consider antidepressant. 07/14/1687-Ostt-dcmy much on the edge of control despite increase in HM dose from 4 to 6 mg at Q 3H. Will increase MS ER to 120 mg Q 8 then consider this afternoon a decrease in the HM dose back to 4. Pain management important in assisting pt to get out of bed and have increase in activity. Fever and leukocytosis- suspect UTI with thakkar. UC/BC pending. Bladder CA with spasms- still on irrigation. Awaiting urology review. This maybe an ongoing issue until he has his definitive surgery. Continue oxybutynin Hypothyroidism-TSH 47+-will need repleting. Defer to hospitalist. Nutrition-poor with poor PO intake per dietary note-Encourage nutritious PO intake--again needs to get out of bed but that will only happen with better pain control -Symptom management (Pain/other) Pain- better today after bumpy weekend post chemotherapy. Worst problem seemed to be bladder spasms earlier. Overall symptoms much improved since Thakkar catheter replaced- Thakkar catheter should remain in place at discharge. Continue MS ER, 90 mg Q8 hr. 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 Oral hydromorphone, 4 mg Q3 hr prn and continue weaning to this from ELECTRICAL DESIGNER DRAFTER (though will continue to have ELECTRICAL DESIGNER DRAFTER available in case he has intractable breakthrough discomfort). Plan was reviewed explicitly with his nurse. He will also try to pretreat using oral hydromorphone 30-60 minutes before any activity. Anxiety- continue lorazepam prn Constipation-continue MiraLAX and senna scheduled twice daily Continue oxybutynin 5 mg PO TID Questionable benefit of B&O supp earlier but he noted he would be willing to retrial- ordered prn. He has not used this -DPOA/Advanced Directives/POLST-Full code; DPOAHC is his Additional Medical Diagnoses with primary management by Hospitalist team include : # Intractable pain refractory to oral medications secondary to malignancy, acute , present on admission. 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 # Right lower extremity swelling and erythema, acute, present on admission. Ongoing # Diabetes mellitus, type II, chronic. Presumed stable # Weakness, acute, present on admission. Ongoing # Constipation, acute, present on admission. Under therapy Problems: End of Life Preferences Full code Goals of Care Goals of care continue to be chemotherapy and then radical cystectomy and prostatectomy Disposition home at discharge Resuscitation Status Resuscitation Status: CPR: Attempt Resuscitation POLST Updates/Changes POLST Discussed with: Patient Total time 40 minutes; >50% face to face with patient and/or family, providing counselling regarding plans and recommendations, and in care coordination with his/her medical teams. med management and case management with communication with oncology and CM. I also spent an additional [ ] minutes counseling for advanced care planning with the patient/the patients family/the surrogate decision maker. copies to: Pat Phipps MD; Lizzy Curry MD; Fausto Salvador MD Palliative Brief Note Date of Service July 20, 2016 . Pain control much better-- has gotten down to 2/10 for 4 hours in the grisel and was able to sleep Then significant spike in pain being up to BM and then passing gas- required IV HM Chemo scheduled for today- this is round 3 O: in bed alert, OX3 still trembling of L leg due to pain and occ wincing. Anemia stable NA 134-improved, CR 0.4 Ethel Romero MD July 20, 2016 11:14
--- NOTE | 2016-07-20 11:28 | PCM.PNNEPH ---
Subjective Date of Service July 20, 2016 Subjective Patient's sodium is considerably better today. He denies any headache, chest pain, or shortness of breath. His blood pressure has averaged between 101 tens. Intake and output for the last 24 hours were 1218 and pulse 75 out. This morning his sodium is 134, potassium 4.7, chloride 96, bicarbonate 27, BUN and creatinine were 11 and 0.4 respectively. His serum osmolarity was 278, urine osmole was 663, and urine sodium was 77 CONSISTENT with syndrome of inappropriate ADH secretion. He has responded well to fluid restriction which I would recommend upon discharge. Recommendations #1 bilateral will be signing off at this point. Please notify us of any change the patient's condition or any questions. Exam Vital Signs Vital Sign - Last Date Time Temp Pulse Resp B/P Pulse Ox O2 Delivery O2 Flow Rate FiO2 07/20/16 05:55 36.5 93 20 106/60 98 Nasal Cannula 2.00 Intake and Output 07/19/16 07/19/16 07/20/16 Cumulative From/Thru 15:00 23:00 07:00 07/05/16 20:32 - 07/20/16 05:57 Intake Total 537 ml 280 ml 66227 ml Output Total 650 ml 26459 ml Balance -113 ml 280 ml -12316 ml Intake Oral 537 ml 76347 ml IV Total 280 ml 62847 ml Packed Cells 650 ml Output Urine Total 650 ml 21778 ml # Bowel Movements 1 Lab and Diagnostics Result Diagram: 07/19/16 0540 07/20/16 0455 Fausto Perry DO July 20, 2016 11:28
--- NOTE | 2016-07-20 13:01 | PCM.PNMED ---
Subjective Date of Service July 20, 2016 Subjective Pain currently controlled with increased dose of fentanyl patch. Sodium improved with fluid restriction. Exam Vital Signs Vital Sign - Last Date Time Temp Pulse Resp B/P Pulse Ox O2 Delivery O2 Flow Rate FiO2 07/20/16 05:55 36.5 93 20 106/60 98 Nasal Cannula 2.00 Intake and Output 07/19/16 07/19/16 07/20/16 Cumulative From/Thru 15:00 23:00 07:00 07/05/16 20:32 - 07/20/16 05:57 Intake Total 537 ml 280 ml 89356 ml Output Total 650 ml 34156 ml Balance -113 ml 280 ml -95086 ml Intake Oral 537 ml 46459 ml IV Total 280 ml 76852 ml Packed Cells 650 ml Output Urine Total 650 ml 19261 ml # Bowel Movements 1 Exam Gen.: Laying in bed, pale appearing male HEENT: Normocephalic, atraumatic Heart: Regular rate and rhythm, no S3-S4 murmurs Lungs: Clear to auscultation bilaterally no crackles or wheezes Abdomen: Nontender, obese abdomen, normal bowel sounds Extremities: Right lower extremity more swollen than left Neuro: No focal deficits Psych: Alert and oriented IVs and Medications Medications Reviewed: Medications were reviewed in detail Lab and Diagnostics Result Diagram: 07/19/16 0540 07/20/16 0455 Assessment & Plan 51-year-old gentleman with an unfortunate history of high grade papillary urothelial carcinoma s/p incomplete TURBT, DM2, and hyperlipidemia, that presented to [facility] with intractable pain refractory to oral medications secondary to malignancy, with associated right lower extremity swelling and redness, and urinary retention. # Intractable pain secondary to malignancy, acute, present on admission. 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 Will have cystoscopy on Monday 07/24. Likely outpatient -- The patient is currently on a 75 g fentanyl patch, morphine sulfate 120 mg extended release every 8 hours, , by mouth 8 mg Dilaudid every 3 hours when necessary for breakthrough. 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 - Incomplete TURBT 05/2016 s/p Chemotherapy - Leave 3-way Weathers indwelling and irrigate as needed with normal saline. - recieved Neupogen at 480 mcg subcutaneously daily, starting July 11.discontinued 07/15 - White count may be elevated due to Neupogen -Patient will get chemotherapy today. -Flexible cystoscopy Monday 07/24, outpatient # Right lower extremity swelling and erythema, acute, present on admission. Ongoing - US duplex 07/05: No DVT - ASO titer, PCT; negative # Diabetes mellitus, type II, chronic. Presumed stable - HbA1c 06/2016: 6.2. Blood glucose at target < 180 for last 2 days - continue SSI -- The patient is started on metformin 500 mg twice a day # Weakness, acute, present on admission. Ongoing - Likely secondary to chemotherapy effects - plan to return home with # Constipation, acute, present on admission. Under therapy - Likely secondary to opioid regimen - continue laxative regimen # Anemia: Likely due to chronic disease -- Patient received 1 unit of PRBC on 07/14 due to low hemoglobin 7.6 -- 07/15 started iron supplementation -- 07/16 he received another unit of blood -- Stable # Urinary tract infection with Enterococcusi: Noted from the culture from 07/13 -- Patient is put on ceftriaxone IV antibiotics: Switched to Cipro based on cultures # Hypothyroidism, not present on admission: This is a new diagnosis -- Sharply elevated TSH 44, T4 will be added 07/14 -- We will consider Synthroid -- 07/[address] Young: He recommends repeating the lab work prior to initiating the synthroid: Repeat labs showed similar findings -- Started.Patient on 50 g of thyroid supplement based on global R pH calculator -- Positive TPO antibodies. This can be used to guide future therapy. # hyponatremia: Improving -- Urine sodium urine osmolar D, serum osmolality, TSH, cortisol were all ordered and reviewed: Fluids were stopped due to suspicion for SIADH, 1 L fluid restriction is placed. TSH sharply elevated, T4 is added. -- Start patient on thyroid supplement -- Continue to follow daily labs -- Stopped Lasix as Dr. Young says this was initiated last admission due to fluid overload and edema: can be givne PRN -- Patient is now on a 1 L fluid restriction, concentrated Cipro dosing per Nephro, who were consulted on 07/18. She also started him on sodium tablets 1 mg by mouth 3 times a day. -- Nephrology has lowered the fluid restriction to 1L and changed cipro dosing on 07/18. -- Nephrology recommends that patient remain on 1 L fluid restriciton if sodium levels improve prior to d/c. If they remain flat, may d/c patient on sodium tablets [address], get a f/u BMP and have the patient f/u with nephrology in one week. Disposition: Urology recommended that we leave the Weathers in with the irrigation port As patient is not tolerating Weathers replacements and removals. They do not see any problem with patient completing 10-14 day course of Cipro. Discussed antibiotics to Dr. Cameron who also agrees that patient did not necessarily need prophylactic antibiotics. The current concern is that patient's pain is not under control. Please contact palliative care and work closely with them on patient's discharge. Patient will need a one-week follow-up at the time of discharge with nephro as above. He will need a follow-up with urology for a cystoscopy in one week following discharge. He will need a follow-up with palliative care as well. Patient is expected to go home on home health care. GI Prophylaxis: Not indicated VTE Prophylaxis: Sub-Q Heparin (Unfractionated) VTE Mechanical Devices: Intermittant Pneumatic CD Resuscitation Status: CPR: Attempt Resuscitation Daniel Benson MD July 20, 2016 13:01 VTE Mechanical Devices: Intermittant Pneumatic CD Resuscitation Status: CPR: Attempt Resuscitation Daniel Benson MD July 20, 2016 13:01 -- Continue to follow daily labs -- Stopped Lasix as Dr. Young says this was initiated last admission due to fluid overload and edema: can be givne PRN -- Patient is now on a 1 L fluid restriction, concentrated Cipro dosing per Nephro, who were consulted on 07/18. She also started him on sodium tablets 1 mg by mouth 3 times a day. She ordered some follow-up urine tests her osmolality . We appreciate her recommendations. -- Nephrology has lowered the fluid restriction to 1L and changed cipro dosing on 07/18. -- Sodium 132 5/7 AM: Will discuss home-going instructions for hyponatremia with nephrology -- Nephrology recommends that patient remain on 1 L fluid restriciton if sodium levels improve prior to d/c. If they remain flat, may d/c patient on sodium tablets [address], get a f/u BMP and have the patient f/u with nephrology in one week. Patient admitted under inpatient status with expected length of stay > 2 midnights for severity of present symptoms, complexities of treatment plan and risk for adverse event Disposition: Urology recommended that we leave the Weathers in with the irrigation port As patient is not tolerating Weathers replacements and removals. They do not see any problem with patient completing 10-14 day course of Cipro. Discussed antibiotics to Dr. Cameron who also agrees that patient did not necessarily need prophylactic antibiotics. The current concern is that patient's pain is not under control. Please contact palliative care and work closely with them on patient's discharge. Patient will need a one-week follow-up at the time of discharge with nephro as above. He will need a follow-up with urology for a cystoscopy in one week following discharge. He will need a follow-up with palliative care as well. Patient is expected to go home on home health care. GI Prophylaxis: Not indicated VTE Prophylaxis: Sub-Q Heparin (Unfractionated) VTE Mechanical Devices: Intermittant Pneumatic CD Resuscitation Status: CPR: Attempt Resuscitation Daniel Benson MD July 20, 2016 13:01
[2016-07-20 13:15] VITALS: BP 121/72; PULSE 86; RESP 16; O2SAT 93
[2016-07-20] MEDS: LORazepam 1 mg Tablet PO PRN (18:21)
[2016-07-20 19:40] VITALS: BP 126/73; PULSE 95; RESP 16; O2SAT 93
[2016-07-21] MEDS: Ondansetron 2 mg/mL 2 mL Inj IVPUSH PRN ×2 (01:20→08:46)
[2016-07-21] MEDS: Heparin 5,000 Unit/mL Inj SUBQ SCH ×3 (01:20→17:37)
[2016-07-21] MEDS: Morphine ER 15 mg (MS Contin) Tablet PO SCH ×2 (01:25→08:41)
[2016-07-21] MEDS: 0.9% Sodium Chloride 250 ML IV SCH (01:28)
[2016-07-21 06:02] VITALS: BP 132/80; PULSE 97; RESP 17; O2SAT 94
[2016-07-21 06:29] LABS: BASOPHILS % (AUTO) 1.1 % (0-3); EOSINOPHILS % (AUTO) 0.9 % (0-5); MONOCYTES % (AUTO) 15.1 % (4-12); Mean Corpuscular Hemoglobin 28.5 pg (27.0-35.0); Mean Corpuscular Volume 87.2 fL (81-100); NEUTROPHILS % (AUTO) 45.2 % (40-74); Platelet Count 215 bil/L (150-400)
[2016-07-21] MEDS: Insulin LISPRO 300 Unit/3 mL Inj SUBQ SCH ×4 (08:00→22:33)
[2016-07-21] MEDS: Polyethylene Glycol (PEG) 17 Gm Powder PO SCH ×2 (08:30→21:09)
[2016-07-21] MEDS: Ciprofloxacin Inj 400 MG in IV Premix 1 EACH IV SCH ×2 (08:36→21:09)
[2016-07-21 12:58] VITALS: BP 137/82; PULSE 85; RESP 16; O2SAT 96
[2016-07-21] MEDS ORDERED: Morphine ER 30 mg (MS Contin) Tablet PO ONE ×2 (14:30→22:00)
[2016-07-21] MEDS ORDERED: Morphine ER 15 mg (MS Contin) Tablet PO SCH (16:30)
--- NOTE | 2016-07-21 17:08 | PCM.PALLBR ---
Palliative Care Recommendation Pleasant 51-year-old gentleman with muscle invasive urothelial carcinoma, admitted with recurrent intractable pain. Palliative medicine consulted to assist with symptom management Outpatient palliative followup scheduled for July 15 at 1430. Discharge on hold due to fever and leukocytosis Summary of palliative recommendations: 07/21/2016-pain continues to be significant issue with very high narcotic requirements. Reviewed with patient goal of adequate baseline of LA opiates with use of breakthrough pain dosing as needed. Notes no side effects to gabapentin. He has some mental clouding with the fentanyl at this dose. Will first switching MS (360 mg) to methadone with starting with nearly half of both dose to overlap then tomorrow morning plan to evaluate pain management with methadone dosing to either stay the same at 7.5 mg 3 times a day or to increase to 10 mg 3 times a day. Decision to discontinue MS will depend on pain management in the morning. Also plan will be to decrease his fentanyl to 50 g with a goal of tapering off an increased methadone as needed-- he has a normal QTC Continue hydromorphone at 8 mg every 3 hours by mouth when necessary. If all of this is not satisfactory may need to consider ketamine I will be managing his narcotics outpatient until stabilized. Due to distance to travel once stabilized this may need to be taken over by Dr. Phipps in [place]. Constipation controlled. Depression and anxiety not very well controlled. Just started on sertraline. With starting methadone will not increase this dose. Bladder CA patient is scheduled for outpatient cystoscopy 10:00 on Wednesday. We will try to see him prior to that appointment to review his pain medications on methadone. Reviewed question of chemotherapy (this would be a third dose) and follow-up CT scan with -he will see the patient and decide whether chemotherapy now or in another week. 07/20/1638-Ijut-Sciqxwduhgb narcotic requirement. Now on MS 120 mg TID with Fentanyl 75 mg Q 3 d started yesterday with HM 8 mg Q 3 for BTP. He feels this is working. He thinks he can manage at home with HH. He thinks pretreating for activity or BM etc with his HM 8 will work. Debility and fatigue-Knows he will be wiped out by chemo and hopes to be strong enough to go home on wed with HH assist and his meds. Enterococcal UTI-will be going home with catheter. Presume makes sense to leave this in until outpatient cysto on [facility] when it can be changed out with smaller cath. Bladder CA- will check with Dr. Phipps about time of next/follow up CT Depression/anx-will start low dose sertraline. 07/15/16-Pain- MSER at 120 tid. Intolerant of decrease of HM to 4- now back to 6 mg. Considering gabapentin UTI- enterococcal- ? if cath needs to be changed. Antibiotics by hospitalist Depression/anx re pain-reviewed ? challenges of ds, pain, sense of loss of control etc. He is willing to consider antidepressant. 07/14/1620-Fmjb-bwbm much on the edge of control despite increase in HM dose from 4 to 6 mg at Q 3H. Will increase MS ER to 120 mg Q 8 then consider this afternoon a decrease in the HM dose back to 4. Pain management important in assisting pt to get out of bed and have increase in activity. Fever and leukocytosis- suspect UTI with thakkar. UC/BC pending. Bladder CA with spasms- still on irrigation. Awaiting urology review. This maybe an ongoing issue until he has his definitive surgery. Continue oxybutynin Hypothyroidism-TSH 47+-will need repleting. Defer to hospitalist. Nutrition-poor with poor PO intake per dietary note-Encourage nutritious PO intake--again needs to get out of bed but that will only happen with better pain control -Symptom management (Pain/other) Pain- better today after bumpy weekend post chemotherapy. Worst problem seemed to be bladder spasms earlier. Overall symptoms much improved since Thakkar catheter replaced- Thakkar catheter should remain in place at discharge. Continue MS ER, 90 mg Q8 hr. 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 Oral hydromorphone, 4 mg Q3 hr prn and continue weaning to this from FITTER WELDER (though will continue to have FITTER WELDER available in case he has intractable breakthrough discomfort). Plan was reviewed explicitly with his nurse. He will also try to pretreat using oral hydromorphone 30-60 minutes before any activity. Anxiety- continue lorazepam prn Constipation-continue MiraLAX and senna scheduled twice daily Continue oxybutynin 5 mg PO TID Questionable benefit of B&O supp earlier but he noted he would be willing to retrial- ordered prn. He has not used this -DPOA/Advanced Directives/POLST-Full code; DPOAHC is his Additional Medical Diagnoses with primary management by Hospitalist team include : # Intractable pain refractory to oral medications secondary to malignancy, acute , present on admission. 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 # Right lower extremity swelling and erythema, acute, present on admission. Ongoing # Diabetes mellitus, type II, chronic. Presumed stable # Weakness, acute, present on admission. Ongoing # Constipation, acute, present on admission. Under therapy Problems: End of Life Preferences Full code Goals of Care Goals of care continue to be chemotherapy and then radical cystectomy and prostatectomy Disposition home at discharge Resuscitation Status Resuscitation Status: CPR: Attempt Resuscitation POLST Updates/Changes POLST Discussed with: Patient Total time 50 minutes; >50% face to face with patient and/or family, providing counselling regarding plans and recommendations, and in care coordination with his/her medical teams. Including med management and discussion with oncology I also spent an additional [ ] minutes counseling for advanced care planning with the patient/the patients family/the surrogate decision maker. copies to: Pat Phipps MD; Fausto Salvador MD Palliative Brief Note Date of Service July 21, 2016 . 51-year-old male patient with history of aggressive large bladder tumor scheduled to have chemotherapy today and continuing through tomorrow. Pain has been a significant issue and despite high doses of narcotics he still does not have adequate control. He is irritable about potential delay of his hydromorphone every 3 hours and acknowledges he gets very anxious thinking about it. He has noticed some mental fogging with fentanyl at 75 g that he did not notice on MS ER at 120 mg 3 times a day. He believes his regime is adequate to keep him at home. Reviewed goal of ability of enough long-acting medication to manage with significantly less dosing of 8 mg of hydromorphone He also states that he is able to get up and go to the bathroom. He feels like his muscles are okay but then he also states he can only be up for short period of time because of being "so weak" She states she was only briefly yesterday. He also feels that he is sleeping poorly and because of that not doing well. Last trazodone given was over a week ago. O: Significantly overweight lungs diminished at the base doses for breath sounds no cough O2 in place abdomen is obese to morbidly obese QTC at 0.44 Hemoglobin 8.5, creatinine 0.50, slight depression in WBC count Ethel Romero MD July 21, 2016 17:07
[2016-07-21] MEDS ORDERED: 0.9% Sodium Chloride 500 ML IV ONE (17:30)
[2016-07-21] MEDS ORDERED: Dexamethasone 10 mg/mL Inj IV SCH (17:45)
[2016-07-21] MEDS ORDERED: METHOTREXATE IV SCH ×2 (18:00→18:50)
[2016-07-21] MEDS: Dexamethasone 10 mg/50 mL NS IV SCH ×2 (18:14)
--- NOTE | 2016-07-21 18:38 | PROG NOTE ---
[address] [id number] PROGRESS NOTE PATIENT: DIANA CROWELL : 1965 MR#: [id number] ADMIT: 07/06/2016 JOB ID: [id number] DATE: 07/21/2016 DIAGNOSIS: Muscle invasive high-grade bladder urothelial carcinoma. SUBJECTIVE: The patient continues to struggle with persistent bladder pain with intermittent exacerbations. He has not had urinary bleeding this admission. OBJECTIVE: He looks tired and somewhat weak. He is awake, alert, oriented x3. The urine in the catheter and in collection bag is entirely clear. Vital signs are normal. Todays labs: Hemoglobin 8.5, which is stable, and creatinine 0.5. IMPRESSION AND PLAN: We will start cycle three of dose-dense MVAC chemotherapy tonight. Methotrexate infusion will be given today, and tomorrow, he will receive cisplatin, Adriamycin, and vinblastine. He is scheduled for cystoscopy on Wednesday, currently as outpatient, and hopefully he will be able to leave hospital prior to Wednesday. I will also schedule an outpatient CT scan of abdomen and pelvis next week, and he has appointment with me in the clinic on August 03, tentatively to start last cycle of neoadjuvant chemotherapy, but if his cystoscopy and CT scan indicate at least some level of tumor response.
[2016-07-21 19:12] VITALS: BP 108/68; PULSE 93; RESP 18; O2SAT 96
[2016-07-21 19:54] VITALS: BP 119/76; PULSE 85; RESP 18; O2SAT 98
--- NOTE | 2016-07-21 21:03 | PCM.PNMED ---
Subjective Date of Service July 21, 2016 Subjective pain controlled,going for chemo today Exam Vital Signs Vital Sign - Last Date Time Temp Pulse Resp B/P Pulse Ox O2 Delivery O2 Flow Rate FiO2 07/21/16 19:54 36.9 85 18 119/76 98 Room Air 07/20/16 05:55 2.00 Intake and Output 07/20/16 07/20/16 07/21/16 Cumulative From/Thru 14:59 22:59 06:59 07/05/16 20:32 - 07/21/16 06:01 Intake Total 400 ml 400 ml 1306 ml 32092 ml Output Total 750 ml 1300 ml 1200 ml 35873 ml Balance -350 ml -900 ml 106 ml -65413 ml Intake Oral 400 ml 400 ml 400 ml 89567 ml IV Total 906 ml 80353 ml Packed Cells 650 ml Output Urine Total 750 ml 1300 ml 1200 ml 39146 ml # Bowel Movements 1 1 0 3 Exam Gen.: Laying in bed, HEENT: Normocephalic, atraumatic Heart: Regular rate and rhythm, no S3-S4 murmurs Lungs: Clear to auscultation bilaterally no crackles or wheezes Abdomen: Nontender, obese abdomen, normal bowel sounds Extremities: Right lower extremity more swollen than left Neuro: No focal deficits Psych: Alert and oriented IVs and Medications Medications Reviewed: Medications were reviewed in detail Lab and Diagnostics Result Diagram: 07/21/1659907/21/16599 Assessment & Plan 51-year-old gentleman with an unfortunate history of high grade papillary urothelial carcinoma s/p incomplete TURBT, DM2, and hyperlipidemia, that presented to [facility] with intractable pain refractory to oral medications secondary to malignancy, with associated right lower extremity swelling and redness, and urinary retention. # Intractable pain secondary to malignancy, acute, present on admission. 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 Will have cystoscopy on Monday 07/24. Likely outpatient -- The patient is currently on a 75 g fentanyl patch, morphine sulfate 120 mg extended release every 8 hours, , by mouth 8 mg Dilaudid every 3 hours when necessary for breakthrough. 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 - Incomplete TURBT 05/2016 s/p Chemotherapy - Leave 3-way Weathers indwelling and irrigate as needed with normal saline. - recieved Neupogen at 480 mcg subcutaneously daily, starting July 11.discontinued 07/15 - White count may be elevated due to Neupogen -Patient will get chemotherapy today and tomorrow. -cystoscopy Monday 07/24, outpatient # Right lower extremity swelling and erythema, acute, present on admission. Ongoing - US duplex 07/05: No DVT - ASO titer, PCT; negative # Diabetes mellitus, type II, chronic. Presumed stable - HbA1c 06/2016: 6.2. Blood glucose at target < 180 for last 2 days - continue SSI -- The patient is started on metformin 500 mg twice a day # Weakness, acute, present on admission. Ongoing - Likely secondary to chemotherapy effects - plan to return home with # Constipation, acute, present on admission. Under therapy - Likely secondary to opioid regimen - continue laxative regimen # Anemia: Likely due to chronic disease -- Patient received 1 unit of PRBC on 07/14 due to low hemoglobin 7.6 -- 07/15 started iron supplementation -- 07/16 he received another unit of blood -- Stable # Urinary tract infection with Enterococcusi: Noted from the culture from 07/13 -- Patient is put on ceftriaxone IV antibiotics: Switched to Cipro based on cultures # Hypothyroidism, not present on admission: This is a new diagnosis -- Sharply elevated TSH 44, T4 will be added 07/14 -- We will consider Synthroid -- 07/[address] Young: He recommends repeating the lab work prior to initiating the synthroid: Repeat labs showed similar findings -- Started.Patient on 50 g of thyroid supplement based on global R pH calculator -- Positive TPO antibodies. This can be used to guide future therapy. # hyponatremia: Improving -- Urine sodium urine osmolar D, serum osmolality, TSH, cortisol were all ordered and reviewed: Fluids were stopped due to suspicion for SIADH, 1 L fluid restriction is placed. TSH sharply elevated, T4 is added. -- Start patient on thyroid supplement -- Continue to follow daily labs -- Stopped Lasix as Dr. Young says this was initiated last admission due to fluid overload and edema: can be givne PRN -- Patient is now on a 1 L fluid restriction, concentrated Cipro dosing per Nephro, who were consulted on 07/18. She also started him on sodium tablets 1 mg by mouth 3 times a day. -- Nephrology has lowered the fluid restriction to 1L and changed cipro dosing on 07/18. -- Nephrology recommends that patient remain on 1 L fluid restriciton if sodium levels improve prior to d/c. If they remain flat, may d/c patient on sodium tablets [address], get a f/u BMP and have the patient f/u with nephrology in one week. Disposition: possible discharge to home tomorrow after chemo, GI Prophylaxis: Not indicated VTE Prophylaxis: Sub-Q Heparin (Unfractionated) VTE Mechanical Devices: Intermittant Pneumatic CD Resuscitation Status: CPR: Attempt Resuscitation Daniel Benson MD July 21, 2016 21:03
[2016-07-21] MEDS: HYDROmorphone 1 mg/mL Inj IVPUSH PRN (23:17)
[2016-07-22] VITALS (7 sets, daily range): BP systolic 121–154; BP diastolic 72–84; PULSE 59–92; RESP 16–18; O2SAT 92–98
[2016-07-22] MEDS: Heparin 5,000 Unit/mL Inj SUBQ SCH ×3 (00:42→17:40)
[2016-07-22 04:55] LABS: EOSINOPHILS % (AUTO) 0 % (0-5); MONOCYTES % (AUTO) 6.1 % (4-12); Mean Corpuscular Hemoglobin 29.1 pg (27.0-35.0); Mean Corpuscular Volume 86.4 fL (81-100); NEUTROPHILS % (AUTO) 77.1 % (40-74); Platelet Count 261 bil/L (150-400)
[2016-07-22 05:20] LABS: Magnesium 1.8 mg/dL (1.6-2.6); Phosphorus 3.4 mg/dL (2.5-4.9)
[2016-07-22] MEDS: HYDROmorphone 1 mg/mL Inj IVPUSH PRN ×2 (05:35→09:35)
[2016-07-22] MEDS: Polyethylene Glycol (PEG) 17 Gm Powder PO SCH ×2 (08:30→20:42)
[2016-07-22] MEDS: Insulin LISPRO 300 Unit/3 mL Inj SUBQ SCH ×4 (09:29→22:18)
[2016-07-22] MEDS: Ciprofloxacin Inj 400 MG in IV Premix 1 EACH IV SCH (09:32)
[2016-07-22] MEDS: Ondansetron 2 mg/mL 2 mL Inj IVPUSH PRN ×3 (09:35→21:02)
[2016-07-22] MEDS: 0.9% Sodium Chloride 250 ML IV SCH (09:44)
--- NOTE | 2016-07-22 11:01 | PCM.PALLBR ---
Palliative Care Recommendation Pleasant 51-year-old gentleman with muscle invasive urothelial carcinoma, admitted with recurrent intractable pain. Palliative medicine consulted to assist with symptom management Outpatient flexible cystoscopy scheduled for Wednesday, July 24, with repeat imaging anticipated the following week. Tentative outpatient palliative visit also on July 24 for medication adjustment. Today I called and reviewed his status and plans with his after seeing him. Summary of palliative recommendations: 07/22/16- significantly better pain control on methadone, 7.5 mg Q8 hr, and will continue at this dose. Topical fentanyl at 50 g per hour, and consider decreasing further to 25 g per hour tomorrow. Monitor his usage of oral Dilaudid for breakthrough pain today. Significantly less use of IV hydromorphone for breakthrough pain- monitor this as well before making decisions about adjusting methadone and/or fentanyl doses in the coming days. He is now completely off his extended release morphine. 07/21/2016-pain continues to be significant issue with very high narcotic requirements. Reviewed with patient goal of adequate baseline of LA opiates with use of breakthrough pain dosing as needed. Notes no side effects to gabapentin. He has some mental clouding with the fentanyl at this dose. Will first switching MS (360 mg) to methadone with starting with nearly half of both dose to overlap then tomorrow morning plan to evaluate pain management with methadone dosing to either stay the same at 7.5 mg 3 times a day or to increase to 10 mg 3 times a day. Decision to discontinue MS will depend on pain management in the morning. Also plan will be to decrease his fentanyl to 50 g with a goal of tapering off an increased methadone as needed-- he has a normal QTC Continue hydromorphone at 8 mg every 3 hours by mouth when necessary. If all of this is not satisfactory may need to consider ketamine I will be managing his narcotics outpatient until stabilized. Due to distance to travel once stabilized this may need to be taken over by Dr. Phipps in [place]. Constipation controlled. Depression and anxiety not very well controlled. Just started on sertraline. With starting methadone will not increase this dose. Bladder CA patient is scheduled for outpatient cystoscopy 10:00 on Wednesday. We will try to see him prior to that appointment to review his pain medications on methadone. Reviewed question of chemotherapy (this would be a third dose) and follow-up CT scan with -he will see the patient and decide whether chemotherapy now or in another week. 07/20/1691-Dldz-Wmzaevnmsad narcotic requirement. Now on MS 120 mg TID with Fentanyl 75 mg Q 3 d started yesterday with HM 8 mg Q 3 for BTP. He feels this is working. He thinks he can manage at home with HH. He thinks pretreating for activity or BM etc with his HM 8 will work. Debility and fatigue-Knows he will be wiped out by chemo and hopes to be strong enough to go home on wed with HH assist and his meds. Enterococcal UTI-will be going home with catheter. Presume makes sense to leave this in until outpatient cysto on [facility] when it can be changed out with smaller cath. Bladder CA- will check with Dr. Phipps about time of next/follow up CT Depression/anx-will start low dose sertraline. 07/15/16-Pain- MSER at 120 tid. Intolerant of decrease of HM to 4- now back to 6 mg. Considering gabapentin UTI- enterococcal- ? if cath needs to be changed. Antibiotics by hospitalist Depression/anx re pain-reviewed ? challenges of ds, pain, sense of loss of control etc. He is willing to consider antidepressant. 07/14/1604-Hlic-mdpq much on the edge of control despite increase in HM dose from 4 to 6 mg at Q 3H. Will increase MS ER to 120 mg Q 8 then consider this afternoon a decrease in the HM dose back to 4. Pain management important in assisting pt to get out of bed and have increase in activity. Fever and leukocytosis- suspect UTI with thakkar. UC/BC pending. Bladder CA with spasms- still on irrigation. Awaiting urology review. This maybe an ongoing issue until he has his definitive surgery. Continue oxybutynin Hypothyroidism-TSH 47+-will need repleting. Defer to hospitalist. Nutrition-poor with poor PO intake per dietary note-Encourage nutritious PO intake--again needs to get out of bed but that will only happen with better pain control -Symptom management (Pain/other) Pain- better today after bumpy weekend post chemotherapy. Worst problem seemed to be bladder spasms earlier. Overall symptoms much improved since Thakkar catheter replaced- Thakkar catheter should remain in place at discharge. Continue MS ER, 90 mg Q8 hr. Continue hydromorphone SPA ASSOCIATE but encouraged him to try to use oral hydromorphone for breakthrough pain. Oral hydromorphone, 4 mg Q3 hr prn and continue weaning to this from SPA ASSOCIATE (though will continue to have SPA ASSOCIATE available in case he has intractable breakthrough discomfort). Plan was reviewed explicitly with his nurse. He will also try to pretreat using oral hydromorphone 30-60 minutes before any activity. Anxiety- continue lorazepam prn Constipation-continue MiraLAX and senna scheduled twice daily Continue oxybutynin 5 mg PO TID Questionable benefit of B&O supp earlier but he noted he would be willing to retrial- ordered prn. He has not used this -DPOA/Advanced Directives/POLST-Full code; DPOAHC is his Additional Medical Diagnoses with primary management by Hospitalist team include : # Intractable pain refractory to oral medications secondary to malignancy, acute , present on admission. 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 # Right lower extremity swelling and erythema, acute, present on admission. Ongoing # Diabetes mellitus, type II, chronic. Presumed stable # Weakness, acute, present on admission. Ongoing # Constipation, acute, present on admission. Under therapy Problems: End of Life Preferences Full code Goals of Care Goals of care continue to be chemotherapy and then radical cystectomy and prostatectomy Disposition home at discharge Resuscitation Status Resuscitation Status: CPR: Attempt Resuscitation POLST Updates/Changes POLST Discussed with: Patient . Pain: Moderate Symptom management: Depression, Anxiety, Pain Total time 35 minutes; >50% face to face with patient and family, providing counselling regarding plans and recommendations, and in care coordination with his medical teams. Palliative Brief Note Date of Service July 22, 2016 . Returned to reevaluate patient. Prior to visiting, reviewed his updated records in the EMR in detail, spoke with his bedside nurse, received signout and discussed his case with Dr. Romero and also reviewed his case with Dr. Garcia. When I arrived, he is lying in bed but is awake and answers all questions appropriately. Says that he feels a little bit "fuzzy" from the medications but nothing intolerable. He says that his pain is down to 4/10- the best it is been during this hospitalization, and this is without receiving any breakthrough Dilaudid since approximately 0400. No other complaints or concerns. He is continuing his third round of chemotherapy. Per Dr. Phipps, plan is for discharge tomorrow morning if he is otherwise doing well, then to follow-up for outpatient flexible cystoscopy on Wednesday. On exam, heavyset man lying in bed in no distress. Vital signs noted. Skin is pale, warm and dry. Lungs clear anterolaterally, heart sounds regular. Labs reviewed in detail. Thmoas Naqvi MD July 22, 2016 11:01
[2016-07-22] MEDS ORDERED: SODIUM CHLORIDE IV SCH ×4 (17:30→19:30)
[2016-07-22] MEDS ORDERED: Palonosetron 0.05 mg/mL 5 mL Inj IV SCH ×2 (17:30→19:45)
[2016-07-22] MEDS ORDERED: FOSAPREPITANT IV SCH ×4 (17:30→19:30)
--- NOTE | 2016-07-22 17:51 | PCM.PNMED ---
Subjective Date of Service July 22, 2016 Subjective Pain controlled. Awaiting chemotherapy tonight. Exam Vital Signs Vital Sign - Last Date Time Temp Pulse Resp B/P Pulse Ox O2 Delivery O2 Flow Rate FiO2 07/22/16 12:06 36.8 88 17 121/76 97 Room Air 07/20/16 05:55 2.00 Intake and Output 07/21/16 07/21/16 07/22/16 Cumulative From/Thru 14:59 22:59 06:59 07/05/16 20:32 - 07/22/16 05:37 Intake Total 850 ml 1262 ml 41977 ml Output Total 2100 ml 2000 ml 44321 ml Balance -1250 ml -738 ml -77459 ml Intake Oral 850 ml 300 ml 82478 ml IV Total 962 ml 38390 ml Packed Cells 650 ml Output Urine Total 2100 ml 2000 ml 67124 ml # Bowel Movements 0 3 Exam Gen.: Laying in bed, HEENT: Normocephalic, atraumatic Heart: Regular rate and rhythm, no S3-S4 murmurs Lungs: Clear to auscultation bilaterally no crackles or wheezes Abdomen: Nontender, obese abdomen, normal bowel sounds Extremities: Right lower extremity more swollen than left Neuro: No focal deficits Psych: Alert and oriented Indwelling Weathers in place. IVs and Medications Medications Reviewed: Medications were reviewed in detail Lab and Diagnostics Result Diagram: 07/22/1639907/22/16399 Assessment & Plan 51-year-old gentleman with an unfortunate history of high grade papillary urothelial carcinoma s/p incomplete TURBT, DM2, and hyperlipidemia, that presented to [facility] with intractable pain refractory to oral medications secondary to malignancy, with associated right lower extremity swelling and redness, and urinary retention. # Intractable pain secondary to malignancy, acute, present on admission. 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 Will have cystoscopy on Monday 07/24. Likely outpatient -- The patient is currently on a 75 g fentanyl patch, morphine sulfate 120 mg extended release every 8 hours, , by mouth 8 mg Dilaudid every 3 hours when necessary for breakthrough. Pain controlled currently # High-grade papillary urothelial carcinoma status post incomplete TURBT, chronic. - Incomplete TURBT 05/2016 s/p Chemotherapy - Leave 3-way Weathers indwelling and irrigate as needed with normal saline. - recieved Neupogen at 480 mcg subcutaneously daily, starting July 11.discontinued 07/15 - White count may be elevated due to Neupogen -Patient will get chemotherapy tonight -cystoscopy Monday 07/24, outpatient # Right lower extremity swelling and erythema, acute, present on admission. Ongoing - US duplex 07/05: No DVT - ASO titer, PCT; negative # Diabetes mellitus, type II, chronic. Presumed stable - HbA1c 06/2016: 6.2. Blood glucose at target < 180 for last 2 days - continue SSI -- The patient is started on metformin 500 mg twice a day # Weakness, acute, present on admission. Ongoing - Likely secondary to chemotherapy effects - plan to return home with # Constipation, acute, present on admission. Under therapy - Likely secondary to opioid regimen - continue laxative regimen # Anemia: Likely due to chronic disease -- Patient received 1 unit of PRBC on 07/14 due to low hemoglobin 7.6 -- 07/15 started iron supplementation -- 07/16 he received another unit of blood -- Stable # Urinary tract infection with Enterococcusi: Noted from the culture from 07/13 -- Patient is put on ceftriaxone IV antibiotics: Switched to Cipro based on cultures # Hypothyroidism, not present on admission: This is a new diagnosis -- Sharply elevated TSH 44, T4 will be added 07/14 -- We will consider Synthroid -- 07/[address] Young: He recommends repeating the lab work prior to initiating the synthroid: Repeat labs showed similar findings -- Started.Patient on 50 g of thyroid supplement based on global R pH calculator -- Positive TPO antibodies. This can be used to guide future therapy. # hyponatremia: Resolved -- Urine sodium urine osmolar D, serum osmolality, TSH, cortisol were all ordered and reviewed: Fluids were stopped due to suspicion for SIADH, 1 L fluid restriction is placed. TSH sharply elevated, T4 is added. -- Start patient on thyroid supplement -- Continue to follow daily labs -- Patient is now on a 1 L fluid restriction, concentrated Cipro dosing per Nephro, who were consulted on 07/18. She also started him on sodium tablets 1 mg by mouth 3 times a day. -- Nephrology has lowered the fluid restriction to 1L and changed cipro dosing on 07/18. -- Nephrology recommends that patient remain on 1 L fluid restriciton if sodium levels improve prior to d/c. If they remain flat, may d/c patient on sodium tablets [address], get a f/u BMP and have the patient f/u with nephrology in one week. Disposition: possible discharge to home tomorrow after chemo tonight, GI Prophylaxis: Not indicated VTE Prophylaxis: Sub-Q Heparin (Unfractionated) VTE Mechanical Devices: Intermittant Pneumatic CD Resuscitation Status: CPR: Attempt Resuscitation Daniel Benson MD July 22, 2016 17:51
[2016-07-22] MEDS ORDERED: DOXORUBICIN IV SCH ×3 (18:00→21:00)
[2016-07-22] MEDS ORDERED: VINBLASTINE IV SCH ×3 (18:00→21:00)
[2016-07-22] MEDS ORDERED: [UNRECOGNIZED DRUG - OTHER] IV SCH ×10 (18:30→21:00)
[2016-07-22] MEDS ORDERED: CISPLATIN IV SCH ×10 (18:30→21:00)
[2016-07-22] MEDS ORDERED: MANNITOL IV SCH ×10 (18:30→21:00)
[2016-07-22] MEDS ORDERED: 0.9% Sodium Chloride 500 ML IV ONE (18:35)
[2016-07-22] MEDS: Dexamethasone 10 mg/50 mL NS IV SCH ×2 (18:39)
[2016-07-22] MEDS: Alum-Mag Hydrox-Simeth 30 mL Suspension PO PRN (21:46)
[2016-07-23] MEDS: 0.9% Sodium Chloride 250 ML IV SCH (00:18)
[2016-07-23] MEDS: Ciprofloxacin Inj 400 MG in IV Premix 1 EACH IV SCH ×2 (00:18→09:46)
[2016-07-23] MEDS: LORazepam 1 mg Tablet PO PRN (01:02)
[2016-07-23] MEDS: Heparin 5,000 Unit/mL Inj SUBQ SCH ×2 (01:02→09:51)
[2016-07-23 05:05] VITALS: BP 129/78; PULSE 79; RESP 17; O2SAT 95
[2016-07-23 06:19] LABS: BASOPHILS % (AUTO) 0.5 % (0-3); EOSINOPHILS % (AUTO) 0 % (0-5); MONOCYTES % (AUTO) 5.8 % (4-12); Mean Corpuscular Hemoglobin 29.2 pg (27.0-35.0); Mean Corpuscular Volume 86.9 fL (81-100); NEUTROPHILS % (AUTO) 81.7 % (40-74); Platelet Count 260 bil/L (150-400)
[2016-07-23] MEDS: Ondansetron 2 mg/mL 2 mL Inj IVPUSH PRN (09:31)
[2016-07-23] MEDS: Polyethylene Glycol (PEG) 17 Gm Powder PO SCH (09:36)
[2016-07-23] MEDS: Insulin LISPRO 300 Unit/3 mL Inj SUBQ SCH (09:53)
--- NOTE | 2016-07-23 10:16 | PCM.DIMED ---
Discharge Instructions Date of Service July 23, 2016 Dates of Hospitalization Jul 06, 2016 at 01:37 Discharge Diagnosis Discharge Diagnosis # Intractable pain secondary to malignancy, acute, present on admission. improved # High-grade papillary urothelial carcinoma status post incomplete TURBT, chronic. # Right lower extremity swelling and erythema, acute, present on admission. Ongoing - US duplex 07/05: No DVT # Diabetes mellitus, type II, chronic. Presumed stable # Anemia: Likely due to chronic disease -- Patient received 1 unit of PRBC on 07/14 due to low hemoglobin 7.6 # Urinary tract infection with Enterococcusi: Noted from the culture from 07/13, completed antibiotic course. # Hypothyroidism, not present on admission: This is a new diagnosis -- Started.Patient on 50 g of thyroid supplement # hyponatremia: Resolved Diet Low fat, Low Sodium, Diabetic Activity Limited until seen by PCP Call your provider Fever or Chills, Shortness of breath, Bleeding, Chest pain, Vomitting, Excessive diarrhea, Weakness (unilateral) Patient Instructions You were hospitalized due to intractable pain. Pain seems to be controlled now. You also underwent chemotherapy for your bladder cancer. You are scheduled for cystoscopy for tomorrow Monday 07/24. Please come back for cystoscopy with your urologist out patient. Follow-up plan Outpatient cystoscopy tomorrow with Dr. Curry Follow-up Provider: Fausto Salvador MD Follow-up with PCP in: 1 week Provider: Lizzy Curry MD Follow-up in: 1 week (tomorrow 07/24/16) Daniel Benson MD July 23, 2016 10:16
[2016-07-23] MEDS ORDERED: ASPI-973 PO (10:19)
[2016-07-23] MEDS ORDERED: SODI1TAB2 PO (10:19)
[2016-07-23] MEDS ORDERED: SERT50TA9 PO (10:19)
[2016-07-23] MEDS ORDERED: METH5TAB3 PO (10:24)
[2016-07-23] MEDS ORDERED: Fentanyl TOPICAL (10:28)
[2016-07-23] MEDS ORDERED: GABA300C PO (10:28)
[2016-07-23] MEDS ORDERED: HYDR8TAB PO (10:28)
--- NOTE | 2016-07-23 11:27 | PCM.DC.MED ---
Discharge Summary Date of Service July 23, 2016 Dates of Hospitalization Date of Hospital Admission Jul 06, 2016 at 01:37 Date of Discharge: July 23, 2016 Providers: Admitting Physician: Denis Hines MD Primary Care Physician: Fausto Salvador MD Attending Physician: Denis Hines MD Diagnosis at Time of Discharge Diagnosis at Time of Discharge # Intractable pain secondary to malignancy, acute, present on admission. improved # High-grade papillary urothelial carcinoma status post incomplete TURBT, chronic. # Right lower extremity swelling and erythema, acute, present on admission. Ongoing - US duplex 07/05: No DVT # Diabetes mellitus, type II, chronic. Presumed stable # Anemia: Likely due to chronic disease -- Patient received 1 unit of PRBC on 07/14 due to low hemoglobin 7.6 # Urinary tract infection with Enterococcusi: Noted from the culture from 07/13, completed antibiotic course. # Hypothyroidism, not present on admission: This is a new diagnosis -- Started.Patient on 50 g of thyroid supplement # hyponatremia: Resolved Consultations palliative dr Romero Procedures ECG 12 Lead PROCEDURE: MRI LUMBAR SPINE WITH AND WITHOUT CONTRAST ([id number]) INDICATIONS: 51 year-old male with history of high-grade papillary urothelial carcinoma presenting worsening dysuria, back pain, difficulty urinating, and worsening right leg numbness and swelling. TECHNIQUE: Noncontrast sagittal T1 spin echo and T2 fast spin echo, sagittal STIR, axial T1 and T2 fast spin echo through the lumbar spine. In cases with scoliosis, additional coronal T2 fast spin echo may be performed. After the administration of contrast, sagittal and axial T1 spin echo with fat saturation through the lumbar spine. COMPARISON: None. FINDINGS: Image quality: There is mild motion artifact. Alignment and curvature: There is normal bony alignment. Marrow: Marrow is of normal overall signal. No acute vertebral body compression fractures. No suspicious marrow enhancement or discrete mass lesions to suggest metastatic disease. Spinal cord: Conus medullaris terminates at the L1 level. Visualized spinal cord demonstrates normal signal, without suspicious enhancement. No definite abnormal enhancement or mass lesion along the cauda equina nerve roots. Paraspinous soft tissues: No paravertebral masses or abnormal enhancement. L1-L2: Normal appearance. L2-L3: Slight disc desiccation with a minimal disc bulge. No spinal canal or neuroforaminal narrowing. L3-L4: Small broad-based disc bulge with mild facet arthropathy and ligamentum flavum hypertrophy. There is mild spinal canal narrowing with minimal bilateral neuroforaminal narrowing. L4-L5: Small broad-based disc bulge with mild facet arthropathy. There is minimal spinal canal narrowing with minimal bilateral neuroforaminal narrowing. L5-S1: Mild disc desiccation with mild loss of disc height and a small central disc bulge. No spinal canal or neuroforaminal narrowing. IMPRESSION: 1. No high-grade spinal canal or neuroforaminal narrowing in the lumbar spine. 2. No evidence of metastatic disease in the lumbar spine. 3. Mild degenerative changes as described. Dictated by: Erwin Moser M.D. on 07/06/2016 at 0:34 Brief History per HPI Mr. Knutson is an extremely pleasant 51-year-old gentleman with an unfortunate history of high grade papillary urothelial carcinoma s/p incomplete TURBT, DM2, and hyperlipidemia, that presented to [facility] with intractable pain refractory to oral medications secondary to malignancy, with associated right lower extremity swelling and redness, and urinary retention. Hospital day one. The patient states he ran out of his pain medications over this most recent weekend, and his pain became unbearable. He states that prior to running out of his medications, the pain was not adequately controlled. He has also noted some right lower extremity erythema and swelling, in addition to urinary retention. He attributed his urinary retention to a possible repeat of blood clots, but a Weathers was placed in the emergency department, no blood clots were noted. He states his pain is quite severe, relatively confined within the region of his bladder. He denies any associated shortness of breath, chest pain , palpitations, nausea, vomiting, diarrhea. He does note some constipation since initiating opioid therapy to control his pain, and he also notes significant decrease in appetite since receiving his first dose of chemotherapy. He was recently seen by the medical oncology office, and he has recently been treated with dose-dense MVAC on June 22 and in the hospital, and was discharged with the plan for 10 days of Neupogen support, which was reported to be initiated on June 30. His next treatment of MVAC is scheduled for July 06. He was recently admitted at this facility in 06/10/16-06/27/16 as a direct transfer from [facility]. At [place], he was admitted for what appeared to be a UTI, with symptoms of gross hematuria and pain with urination. CT completed at that facility showed a right-sided bladder mass measuring 10 x 5.8 cm with right-sided hydronephrosis. He underwent an incomplete TURBT by Dr. Curry on June 10, which revealed a large, very hemorrhagic tumor. Postoperatively, the patient became hemodynamically unstable and was coded. He was emergently intubated, placed on vasopressor therapy, and received approximately 15 units of packed red blood in addition to FFP and cryoprecipitate. At discharge 06/27, pain medications included morphine sulfate ER 60 mg q8h in addition to Dilaudid 2 mg every 3 hours needed for pain. In the ED, temp 36.1, pulse 102, respiratory rate 20, blood pressure 129/79, 97 % on room air; initial labs revealed WBC 4.0 with the presence of multiple blast cells and metamyelocytes, hemoglobin 8.8; creatinine 0.75, alkaline phosphatase 229, INR 0.95; UA revealed positive protein, large occult blood, trace leukocyte esterase, few bacteria, urine sent for culture. Three-way Weathers catheter with irrigation was placed, no clots seen. Right lower extremity duplex obtained to evaluate right lower extremity erythema and swelling, no DVTs noted; stat MR lumbar spine obtained for indication of urinary retention and lower extremity weakness, no abnormalities of high-grade stenosis, neuroforaminal narrowing, or bone metastases noted. Patient was transferred to [facility] in stable condition. Hospital Course 51-year-old gentleman with an unfortunate history of high grade papillary urothelial carcinoma s/p incomplete TURBT, DM2, and hyperlipidemia, that presented to [facility] with intractable pain refractory to oral medications secondary to malignancy, with associated right lower extremity swelling and redness, and urinary retention. # Intractable pain secondary to malignancy, acute, present on admission. Persistent with some improvement -Weaned off IV Dilaudid [employer], Palliative care managing pain medications --Urology feel that patient can keep the three-way Weathers by capping of the irrigation port. Will have cystoscopy on Monday 07/24. outpatient -- Discharge pain regimen : 25 g fentanyl patch once until methadone kicks in, methadone 10 mg 3 times a day9 started 07/22), by mouth 8 mg Dilaudid every 3 hours when necessary for breakthrough. Pain controlled currently # High-grade papillary urothelial carcinoma status post incomplete TURBT, chronic. - Incomplete TURBT 05/2016 s/p Chemotherapy - Leave 3-way Weathers indwelling and irrigate as needed with normal saline. - recieved Neupogen at 480 mcg subcutaneously daily, starting July 11.discontinued 07/15 - White count may be elevated due to Neupogen -Patient received chemotherapy 07/21 and 07/22 -cystoscopy Monday 07/24, outpatient # Right lower extremity swelling and erythema, acute, present on admission. Ongoing - US duplex 07/05: No DVT - ASO titer, PCT; negative # Diabetes mellitus, type II, chronic. Presumed stable - HbA1c 06/2016: 6.2. Blood glucose at target < 180 for last 2 days - continue SSI -- The patient was started on metformin 500 mg twice a day. Discontinued upon discharge. -Patient states he takes Lantus 65 units at bedtime and sliding scale short- acting insulin. Does not seem that he requires this high insulin. Advised to start with Lantus 20 units at bedtime and instructed to titrate. Patient verbalized understanding # Anemia: Likely due to chronic disease -- Patient received 1 unit of PRBC on 07/14 due to low hemoglobin 7.6 -- 07/15 started iron supplementation -- 07/16 he received another unit of blood -- Stable # Urinary tract infection with Enterococcusi: Noted from the culture from 07/13 -- Patient was treated with ceftriaxone IV antibiotics: Switched to Cipro based on cultures . Completed antibiotics. Discontinue up on discharge. Urology may restart after cystoscopy tomorrow if indicated for prophylaxis # Hypothyroidism, not present on admission: This is a new diagnosis -- Sharply elevated TSH 44, T4 will be added r Synthroid -- 07/[address] Young: He recommends repeating the lab work prior to initiating the synthroid: Repeat labs showed similar findings -- Started.Patient on 50 g of thyroid supplement based on global R pH calculator -- Positive TPO antibodies. This can be used to guide future therapy. # hyponatremia: Resolved -- Urine sodium urine osmolar D, serum osmolality, TSH, cortisol were all ordered and reviewed: Fluids were stopped due to suspicion for SIADH, 1 L fluid restriction is placed. TSH sharply elevated, T4 is added. -- Start patient on thyroid supplement -- Patient is now on a 1 L fluid restriction, also started him on sodium tablets 1 mg by mouth 3 times a day. -- Nephrology recommends that patient remain on 1 L fluid restriciton and july d/ c patient on sodium tablets 1 mg TID. Patient's sodium has been stable. Will discharge him on sodium tablets. Will liberalize fluid restriction to 1.5 L. Disposition: discharge home with HH Condition on discharge stable He will come back for cystoscopy tomorrow He has appointment with oncologist for CT scan next week Dr Romero will call him tomorrow to make sure his pain regimen is working. She would also see him Wednesday next week outpatient. Exam Vital Signs (Last) Date Time Temp Pulse Resp B/P Pulse Ox O2 Delivery O2 Flow Rate FiO2 07/23/16 05:05 36.7 79 17 129/78 95 Nasal Cannula 2.00 Exam Gen.: Laying in bed, HEENT: Normocephalic, atraumatic Heart: Regular rate and rhythm, no S3-S4 murmurs Lungs: Clear to auscultation bilaterally no crackles or wheezes Abdomen: Nontender, obese abdomen, normal bowel sounds Extremities: Right lower extremity more swollen than left Neuro: No focal deficits Psych: Alert and oriented Indwelling Weathers in place. Test 07/05/16 19:45 07/06/16 06:53 07/09/16 08:15 07/11/16 04:40 Blast Cells % 2% (0-0) Nucleated Red Blood Cells 0/100 WBC (0-24) Blood Smear Pathologist Review Prothrombin Time 10.1sec (8.1-12.5) Prothromb Time International Ratio 0.95ratio Hold Matthew Top Tube Received (Received) Myelocytes % 5% (0-0) Promyelocytes % 1% (0-0) Procalcitonin 0.20ng/mL (0.00-0.08) Streptozyme 27.3IU/mL (0.0-200.0) Band Neutrophils % 2% (1-5) Metamyelocytes % 1% (0-0) Hold [place] Top Tube Received (Received) Test 07/13/16 05:10 07/13/16 23:15 07/14/16 02:50 07/15/16 12:45 Reticulocyte Count,Calculated 0.4% (0.6-2.6) Iron Level 129ug/dL (35-150) Total Iron Binding Capacity 241ug/dL (250-450) Percent Iron Saturation 54%sat (15-50) Unsaturated Iron Binding 112.1ug/dL Ferritin 302ng/mL (30-400) Vitamin B12 Level 1823pg/mL (211-946) Urine Color Yellow (YELLOW) Urine Appearance Turbid (CLEAR,HAZY) Urine pH 6.5 (5.0-8.0) Urine Specific [place] 1.020 (1.003-1.035) Urine Protein 30mg/dL (NEG,TRACE) Urine Glucose (UA) Negativemg/dL (NEGATIVE) Urine Ketones Negativemg/dL (NEGATIVE) Urine Occult Blood Large (NEGATIVE) Urine Nitrite Positive (NEGATIVE) Urine Bilirubin Negative (NEGATIVE) Urine Urobilinogen Normalmg/dL (NORMAL) Urine Leukocyte Esterase Large (NEGATIVE) Urine RBC Packed/hpf (0-2) Urine WBC Packed/hpf (0-5) Urine Epithelial Cells Few/hpf (NONE-MOD) Urine Crystals None seen (NONE SEEN) Urine Bacteria Many/hpf (NONE-FEW) Urine Hyaline Casts None/lpf (NONE) Urine Granular Casts None seen (NONE SEEN) Urine Waxy Casts None seen (NONE SEEN) Urine Red Blood Cell Casts None seen (NONE SEEN) Urine White Blood Cell Casts None seen (NONE SEEN) Urine Mucus None seen (None Seen) Urine Trichomonas None seen (NONE SEEN) Urine Yeast None (NONE SEEN) Urinalysis Comment Urine Culture Reflexed Indicated Thyroxine (T4) 4.0ug/dL (4.7-13.3) Cortisol 11.2ug/dL (.) Thyroid Stimulating Hormone (TSH) 43.600uIU/mL (0.450-4.500) Free Thyroxine 0.60ng/dL (0.82-1.77) Test 07/16/16 04:15 07/17/16 19:04 07/19/16 03:30 07/19/16 05:40 Thyroid Peroxidase Antibodies 62IU/mL (0-34) Hold Purple Top Tube Received (Received) Urine Osmolality 663mOs/kH2O (250-1200) Urine Random Sodium 77mEq/L Osmolality 278 (275-300) Test 07/22/16 04:00 07/23/16 06:10 Phosphorus Level 3.4mg/dL (2.5-4.9) Magnesium Level 1.8mg/dL (1.6-2.6) Folate 8.3ng/mL (>3.0) White Blood Count 4.2th/mm3 (3.8-10.1) Red Blood Count 3.12mil/mm3 (4.40-5.80) Hemoglobin 9.1g/dL (13.8-17.2) Hematocrit 27.1% (41.0-50.0) Mean Corpuscular Volume 86.9fL (81-100) Mean Corpuscular Hemoglobin 29.2pg (27.0-35.0) Mean Corpuscular Hemoglobin Concent 33.6% (32.0-37.0) Red Cell Distribution Width 14.4% (12.3-15.4) Platelet Count 260bil/L (150-400) Neutrophils (%) (Auto) 81.7% (40-74) Lymphocytes (%) (Auto) 11.0% (14-46) Monocytes (%) (Auto) 5.8% (4-12) Eosinophils (%) (Auto) 0% (0-5) Basophils (%) (Auto) 0.5% (0-3) Sodium Level 136mEq/L (134-144) Potassium Level 5.1mEq/L (3.5-5.2) Chloride Level 99mEq/L (97-108) Carbon Dioxide Level 25mmol/L (18-29) Blood Urea Nitrogen 11mg/dL (6-24) Creatinine 0.45mg/dL (0.76-1.27) Estimat Glomerular Filtration Rate 211mL/min (>59) Glucose Level 221mg/dL (60-99) Uric Acid 4.4mg/dL (2.6-7.2) Calcium Level 8.2mg/dL (8.5-10.1) Total Bilirubin 0.3mg/dL (0.0-1.2) Aspartate Amino Transf (AST/SGOT) 33U/L (0-50) Alanine Aminotransferase (ALT/SGPT) 21U/L (0-44) Alkaline Phosphatase 257U/L (25-150) Total Protein 5.8g/dL (6.4-8.4) Albumin 2.8g/dL (3.4-5.0) Discharge Medications Discharge Medications ([Fentanyl]) 1 PATCH PATCH 1 PATCH TOPICAL Q3D Prescribed by: TIGIST ALVA DO ([Fentanyl]) 1 PATCH PATCH 25 PATCH TOPICAL Q3D Prescribed by: DIPESH SIMPSON MD Aspirin (Aspirin) 81 Mg Tablet 81 MG PO DAILY Prescribed by: DIPESH SIMPSON MD Ferrous Sulfate (Feosol) 325 Mg Tablet 325 MG PO BIDWM Prescribed by: TIGIST ALVA DO Gabapentin (Neurontin) 300 Mg Capsule 300 MG PO TID Prescribed by: DIPESH SIMPSON MD Levothyroxine (Levothyroxine) 50 Mcg Tablet 50 MCG PO DAILYAC Prescribed by: TIGIST ALVA DO Methadone (Methadone) 5 Mg Tablet 10 MG PO Q8H Prescribed by: DIPESH SIMPSON MD Oxybutynin Chloride (Oxybutynin Chloride) 5 Mg Tablet 5 MG PO TID Prescribed by: DORITA LOUIS DO Sennosides (Senna) 8.6 Mg Tablet 8.6 MG PO BID Prescribed by: DORITA LOUIS DO Sertraline HCl (Sertraline) 50 Mg Tablet 50 MG PO DAILY Prescribed by: DIPESH SIMPSON MD Sodium Chloride (Sodium Chloride) 1 Gm Tablet 1 GM PO TID Prescribed by: DIPESH SIMPSON MD As needed Gabapentin (Gabapentin) 300 Mg Capsule 300 MG PO DAILY PRN PRN For Pain ( Reported) Hydromorphone (Hydromorphone) 8 Mg Tablet 8 MG PO Q3H PRN PRN Pain Prescribed by: DIPESH SIMPSON MD Lorazepam (Ativan) 1 Mg Tablet 1 MG PO TID PRN PRN For Anxiety or Agitation Prescribed by: DORITA LOUIS DO Trazodone (Trazodone) 50 Mg Tablet 50 MG PO HS PRN PRN Insomnia Prescribed by: TIGIST ALVA DO diphenhydrAMINE HCl (Benadryl) 25 Mg Capsule 25 MG PO Q6H PRN PRN For Itching Prescribed by: DORITA LOUIS DO Miscellaneous Medications Insulin Detemir (Levemir Flextouch) 100 Unit/1 Ml Insuln.pen 100 UNIT SQ ( Reported) Followup Plan Disposition: home with Follow-up plan Outpatient cystoscopy tomorrow with Dr. Patricio Dewitt Diet: Low fat, Low Sodium, Diabetic Discharge Activity: Limited until seen by PCP Patient Instructions You were hospitalized due to intractable pain. Pain seems to be controlled now. You also underwent chemotherapy for your bladder cancer. You are scheduled for cystoscopy for tomorrow Monday 07/24. Please come back for cystoscopy with your urologist out patient. Follow-up Provider: Fausto Salvador MD Follow-up with PCP in: 1 week Provider: Lizzy Curry MD Follow-up in: 1 week (tomorrow 07/24/16) Time spent 40 minutes coordinating discharge copies to: Pat Phipps MD; Lizzy Curry MD; Fausto Salvador MD; Ethel Romero MD, Melaku MD July 23, 2016 11:27
[2016-07-23 13:12] VITALS: BP 111/70; PULSE 85; RESP 18; O2SAT 91
--- NOTE | 2016-07-23 15:44 | PCM.PALLBR ---
Palliative Care Recommendation Pleasant 51-year-old gentleman with muscle invasive urothelial carcinoma, admitted with recurrent intractable pain. Palliative medicine consulted to assist with symptom management Outpatient flexible cystoscopy scheduled for Wednesday, July 24, with repeat imaging anticipated the following week. Summary of palliative recommendations: 07/23/16-met with pt and his Sherly. He remains concerned re home and managing. Bit of edge of anger. Pain better controlled with methadone. Will increase methadone to 10 mg TID ( from 7.5). Continue on HM 8 mg Q3H PRN (#[address] Benson on both) Given script for lidocaine get for PRN use on penis Reviewed goal to decrease to fentanyl 25 Mcg for 3 days and then stop. Reviewed challenges with methadone and close monitoring when dose is increase Reviewed challenges and cautions on methadone and other narcotics. Depression- started sertraline 50 mg daily Bladder CA- s/p chemo with plans for CT scan next week and f/u with Dr. Phipps afterward. cysto and change of cath scheduled for tomorrow. goal is for pelvic exoneration with cystectomy, prostatectomy and LN in 1-2 weeks follow up with OP PC wednesday about 1 if that works around the timing of CT 07/22/16- significantly better pain control on methadone, 7.5 mg Q8 hr, and will continue at this dose. Topical fentanyl at 50 g per hour, and consider decreasing further to 25 g per hour tomorrow. Monitor his usage of oral Dilaudid for breakthrough pain today. Significantly less use of IV hydromorphone for breakthrough pain- monitor this as well before making decisions about adjusting methadone and/or fentanyl doses in the coming days. He is now completely off his extended release morphine. 07/21/2016-pain continues to be significant issue with very high narcotic requirements. Reviewed with patient goal of adequate baseline of LA opiates with use of breakthrough pain dosing as needed. Notes no side effects to gabapentin. He has some mental clouding with the fentanyl at this dose. Will first switching MS (360 mg) to methadone with starting with nearly half of both dose to overlap then tomorrow morning plan to evaluate pain management with methadone dosing to either stay the same at 7.5 mg 3 times a day or to increase to 10 mg 3 times a day. Decision to discontinue MS will depend on pain management in the morning. Also plan will be to decrease his fentanyl to 50 g with a goal of tapering off an increased methadone as needed-- he has a normal QTC Continue hydromorphone at 8 mg every 3 hours by mouth when necessary. If all of this is not satisfactory may need to consider ketamine I will be managing his narcotics outpatient until stabilized. Due to distance to travel once stabilized this may need to be taken over by Dr. Phipps in [place]. Constipation controlled. Depression and anxiety not very well controlled. Just started on sertraline. With starting methadone will not increase this dose. Bladder CA patient is scheduled for outpatient cystoscopy 10:00 on Wednesday. We will try to see him prior to that appointment to review his pain medications on methadone. Reviewed question of chemotherapy (this would be a third dose) and follow-up CT scan with -he will see the patient and decide whether chemotherapy now or in another week. 07/20/1698-Roej-Gtqynfednxf narcotic requirement. Now on MS 120 mg TID with Fentanyl 75 mg Q 3 d started yesterday with HM 8 mg Q 3 for BTP. He feels this is working. He thinks he can manage at home with HH. He thinks pretreating for activity or BM etc with his HM 8 will work. Debility and fatigue-Knows he will be wiped out by chemo and hopes to be strong enough to go home on wed with HH assist and his meds. Enterococcal UTI-will be going home with catheter. Presume makes sense to leave this in until outpatient cysto on [facility] when it can be changed out with smaller cath. Bladder CA- will check with Dr. Phipps about time of next/follow up CT Depression/anx-will start low dose sertraline. 07/15/16-Pain- MSER at 120 tid. Intolerant of decrease of HM to 4- now back to 6 mg. Considering gabapentin UTI- enterococcal- ? if cath needs to be changed. Antibiotics by hospitalist Depression/anx re pain-reviewed ? challenges of ds, pain, sense of loss of control etc. He is willing to consider antidepressant. 07/14/1618-Hclb-oyid much on the edge of control despite increase in HM dose from 4 to 6 mg at Q 3H. Will increase MS ER to 120 mg Q 8 then consider this afternoon a decrease in the HM dose back to 4. Pain management important in assisting pt to get out of bed and have increase in activity. Fever and leukocytosis- suspect UTI with thakkar. UC/BC pending. Bladder CA with spasms- still on irrigation. Awaiting urology review. This maybe an ongoing issue until he has his definitive surgery. Continue oxybutynin Hypothyroidism-TSH 47+-will need repleting. Defer to hospitalist. Nutrition-poor with poor PO intake per dietary note-Encourage nutritious PO intake--again needs to get out of bed but that will only happen with better pain control -Symptom management (Pain/other) Pain- better today after bumpy weekend post chemotherapy. Worst problem seemed to be bladder spasms earlier. Overall symptoms much improved since Thakkar catheter replaced- Thakkar catheter should remain in place at discharge. Continue MS ER, 90 mg Q8 hr. Continue hydromorphone INVESTMENT TRADER but encouraged him to try to use oral hydromorphone for breakthrough pain. Oral hydromorphone, 4 mg Q3 hr prn and continue weaning to this from INVESTMENT TRADER (though will continue to have INVESTMENT TRADER available in case he has intractable breakthrough discomfort). Plan was reviewed explicitly with his nurse. He will also try to pretreat using oral hydromorphone 30-60 minutes before any activity. Anxiety- continue lorazepam prn Constipation-continue MiraLAX and senna scheduled twice daily Continue oxybutynin 5 mg PO TID Questionable benefit of B&O supp earlier but he noted he would be willing to retrial- ordered prn. He has not used this -DPOA/Advanced Directives/POLST-Full code; DPOAHC is his Additional Medical Diagnoses with primary management by Hospitalist team include : # Intractable pain refractory to oral medications secondary to malignancy, acute , present on admission. 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 # Right lower extremity swelling and erythema, acute, present on admission. Ongoing # Diabetes mellitus, type II, chronic. Presumed stable # Weakness, acute, present on admission. Ongoing # Constipation, acute, present on admission. Under therapy Problems: End of Life Preferences Full code Goals of Care Goals of care continue to be chemotherapy and then radical cystectomy and prostatectomy Disposition home at discharge Resuscitation Status Resuscitation Status: CPR: Attempt Resuscitation POLST Updates/Changes POLST Discussed with: Patient . Symptom management: Depression, Anxiety, Pain Total time 45 minutes; >50% face to face with patient and/or family, providing counselling regarding plans and recommendations, and in care coordination with his/her medical teams. I also spent an additional [ ] minutes counseling for advanced care planning with the patient/the patients family/the surrogate decision maker. copies to: Pat Phipps MD; Fausto Salvador MD Palliative Brief Note Date of Service July 23, 2016 . Patient not needing IV HM and during the day spaced out dosing for hours. Methadone helping- still on fentanyl at 50 mcg. He is concerned about adequate management at home and is concerned about the effect of chemo- now completed. He is scheduled for cysto tomorrow and CT scan next wednesday per pt. O: alert but occ dozes, OX3 lungs clear, COR RR BM yesterday Na remains normal range. Ethel Romero MD July 23, 2016 15:44
== END 2016-07-23 14:39 | disposition home health service (06) | DRG 948 ==
LOC: SED 18:39 → OBSVTOIN 07-06 01:37 → OSC 07-06 01:37
PROVIDERS: ADMIT Hospitalist; ATTEND Hospitalist
PROC: 30233N1 Transfusion of Nonautologous Red Blood Cells into Peripheral Vein, Percutaneous Approach (ICD-10-PCS; principal; 2016-07-14)
PROC: 30233N1 Transfusion of Nonautologous Red Blood Cells into Peripheral Vein, Percutaneous Approach (ICD-10-PCS; 2016-07-16)
DX: G89.3 Neoplasm related pain (acute) (chronic) (principal); N39.0 Urinary tract infection, site not specified; E22.2 Syndrome of inappropriate secretion of antidiuretic hormone; C67.9 Malignant neoplasm of bladder, unspecified; N32.0 Bladder-neck obstruction; E11.9 Type 2 diabetes mellitus without complications; D63.0 Anemia in neoplastic disease; E03.9 Hypothyroidism, unspecified; E78.5 Hyperlipidemia, unspecified; Z51.5 Encounter for palliative care; K59.03 Drug induced constipation; T40.2X5A Adverse effect of other opioids, initial encounter; B95.2 Enterococcus as the cause of diseases classified elsewhere; M79.89 Other specified soft tissue disorders

== ENCOUNTER 2016-07-31 02:13 | Emergency (ER) | payer OTHER ==
[~2016-07-31] VITALS: Ht 182.9 cm; Wt 127.3 kg
[~2016-07-31 02:13] MED LIST changes: +ASPI-973 PO; +FERR-74 PO; -FURO40TA4 PO; +Fentanyl TOPICAL; +GABA300C PO; -HYDR2TAB27 PO; +HYDR8TAB PO; +LEVO50TA6 PO; +METH5TAB3 PO; -MORP-33 PO; -NPR500T PO; +SERT50TA9 PO; +SODI1TAB2 PO; -TBO-480S SQ; +TRAZ-115 PO
[2016-07-31 02:16] VITALS: BP 111/71; PULSE 99; RESP 18; O2SAT 97
--- NOTE | 2016-07-31 02:20 | ED.REPORT ---
HPI-Abd Pain M 40 and Over Date of Service July 31, 2016 ED Provider: Dr. Pancho Pham M.D. A 51 year old male with a history of DM, hypothyroidism, and active high grade papillary urothelial carcinoma s/p incomplete TURBT presents to the ED reporting a clogged Infante catheter onset 0000 today. Associated symptoms include lower abdominal pain and distention. The patient underwent a cystoscopy today and his catheter was replaced at that time. He has had a catheter in place intermittently over the past three weeks. The patient denies other symptoms currently. Nursing Notes Stated Complaint: CLOGGED INFANTE CATHETER Chief Complaint: Male Abdominal Pain Nursing Notes Reviewed: Yes Allergies: Coded Allergies: No Known Allergies (Verified Allergy, Unknown, 07/31/16) Scheduled ([Fentanyl]) 1 PATCH PATCH 1 PATCH TOPICAL Q3D ([Fentanyl]) 1 PATCH PATCH 25 PATCH TOPICAL Q3D Aspirin (Aspirin) 81 Mg Tablet 81 MG PO DAILY Ferrous Sulfate (Feosol) 325 Mg Tablet 325 MG PO BIDWM Gabapentin (Neurontin) 300 Mg Capsule 300 MG PO TID Levothyroxine (Levothyroxine) 50 Mcg Tablet 50 MCG PO DAILYAC Methadone (Methadone) 5 Mg Tablet 10 MG PO Q8H Oxybutynin Chloride (Oxybutynin Chloride) 5 Mg Tablet 5 MG PO TID Sennosides (Senna) 8.6 Mg Tablet 8.6 MG PO BID Sertraline HCl (Sertraline) 50 Mg Tablet 50 MG PO DAILY Sodium Chloride (Sodium Chloride) 1 Gm Tablet 1 GM PO TID Scheduled PRN Gabapentin (Gabapentin) 300 Mg Capsule 300 MG PO DAILY PRN PRN For Pain Hydromorphone (Hydromorphone) 8 Mg Tablet 8 MG PO Q3H PRN PRN Pain Lorazepam (Ativan) 1 Mg Tablet 1 MG PO TID PRN PRN For Anxiety or Agitation Trazodone (Trazodone) 50 Mg Tablet 50 MG PO HS PRN PRN Insomnia diphenhydrAMINE HCl (Benadryl) 25 Mg Capsule 25 MG PO Q6H PRN PRN For Itching Miscellaneous Medications Insulin Detemir (Levemir Flextouch) 100 Unit/1 Ml Insuln.pen 100 UNIT SQ General Time Seen by MD: 02:20 Chief Complaint Urinary cath not draining Hx Obtained From: Patient Arrived By: Walk-in Sudden in Onset?: Yes Onset Occurred: 1 - 4 hours ago Symptom Duration: Since onset Location: : Abdomen lower Quality: Painful Severity: Current: Moderate Severity: Maximum: Moderate Pertinent Negative: Relieved by nothing Context Related History: Reports: Abdominal surgery Recent Healthcare: Recent doctor visit Past Medical History Past Medical History Notes: Urologist Dr. Curry Oncologist Dr. Phipps Past Medical History High grade papillary urothelial carcinoma (patient presented June 10 following a transfer from [place], CT imaging showed a 10 x 6 cm mass, patient underwent incomplete "TURBT" by Dr. Curry 06/10 and post procedure to the patient became hemodynamically unstable and was coded, is reintubated required vasopressor and transfusion of 15 units of red cells as well as FFP and crisis cryoprecipitate. The patient was initiated on chemotherapy earlier this month, June 22 and and after number cycle she will undergo plan radical cystoprostatectomy. Patient is currently on G CSF support) DM type 2 Anemia Hypothyroidism Past Surgical History TURBT (modified for bladder mass) Smoking History Never Smoker Social History Other Social History: Good social support Ambulatory Status Independent Review of Systems Review of Systems Note: + Clogged Infante catheter, abdominal distention Constitutional: Denies: Fever Respiratory: Denies: Non-productive cough, Shortness of breath GI: Reports: Abdominal pain, Denies: Diarrhea, Vomiting Complete sys rev & neg: except as marked. Physical Exam Physical Exam Notes: Initial Vital Signs Vital Signs (First) Date Time Temp Pulse Resp B/P Pulse Ox O2 Delivery O2 Flow Rate FiO2 07/31/16 02:16 36.4 99 18 111/71 97 Room Air Initial VS: Reviewed Head / Eyes: Atraumatic, Normocephalic ENT: Conjunctiva normal, No scleral icterus Neck: Supple, Full range of motion Skin: Warm, Dry, No cyanosis Neurologic: Alert, Oriented, Nonfocal Psychiatric: Mood/affect normal, Behavior normal, Normal thought content General/Constitutional: Awake, Alert Appearance / Presentation: Positive: Ill appearing/not toxic, Pale, Uncomfortable Abdomen: Atraumatic Tenderness/Guarding/Rebound: Positive: Tender LLQ..., Tender RLQ... Bowel Sounds / Distention: Positive: Distention moderate Obese Male Genitourinary: Atraumatic Obstructed [address] Interpretation & Diagnostics Lab Results Interpretation Test 07/31/16 03:20 Urine Color Dark yellow (YELLOW) Urine Appearance Cloudy (CLEAR,HAZY) Urine pH 6.0 (5.0-8.0) Urine Specific [place] 1.012 (1.003-1.035) Urine Protein 100mg/dL (NEG,TRACE) Urine Glucose (UA) Negativemg/dL (NEGATIVE) Urine Ketones Negativemg/dL (NEGATIVE) Urine Occult Blood Large (NEGATIVE) Urine Nitrite Positive (NEGATIVE) Urine Bilirubin Negative (NEGATIVE) Urine Urobilinogen Normalmg/dL (NORMAL) Urine Leukocyte Esterase Large (NEGATIVE) Urine RBC >50/hpf (0-2) Urine WBC Packed/hpf (0-5) Urine Epithelial Cells Occasional/hpf (NONE-MOD) Urine Crystals None seen (NONE SEEN) Urine Bacteria Moderate/hpf (NONE-FEW) Urine Hyaline Casts None/lpf (NONE) Urine Granular Casts None seen (NONE SEEN) Urine Waxy Casts None seen (NONE SEEN) Urine Red Blood Cell Casts None seen (NONE SEEN) Urine White Blood Cell Casts None seen (NONE SEEN) Urine Mucus Present (None Seen) Urine Trichomonas None seen (NONE SEEN) Urine Yeast None (NONE SEEN) Urine Culture Reflexed Indicated Hold Urine Received (Received) Re-Eval/Medical Decision Med Decision/Clinical Course 51-year-old status post TURBT of a bladder tumor, which was incomplete. Complete surgery scheduled for fairly soon. He presents tonight with a Infante is only been in place for a day, displaced downward and apparently with the balloon and the prostate, causing obstruction and discomfort. This splint was taken down and the Infante removed. It was reviewed placed with a twenty-two Italian silicone Infante. It is draining well now. UA does show red cells and packed white cells. He is referred to urology for follow-up. Discharged in improved condition. Source of Hx: Old records Time of Eval: 03:28 Patient Status: Condition improved Re-Evaluation/Progress Note: Patient is feeling much better. Discussed with patient diagnosis and plan for discharge. Follow-up and return to the ER instructions given. Patient agrees with plan for care and all questions were addressed. Counseled Regarding: Diagnosis, Need for follow-up, When/why to return to ED Discharge & Departure Shift Change Sign-Out Response to Therapy: Improved Primary Impression: Urinary retention Additional Impressions: Dislodged Infante catheter Encounter type: initial encounter Qualified Code: T83.021A - Displacement of indwelling urethral catheter, initial encounter Obstructed Infante catheter Encounter type: initial encounter Qualified Code: T83.091A - Other mechanical complication of indwelling urethral catheter, initial encounter Disposition: Home Vital Signs - All Vital Signs Date Time Temp Pulse Resp B/P Pulse Ox O2 Delivery O2 Flow Rate FiO2 07/31/16 03:48 36.6 90 17 120/80 98 Room Air 07/31/16 02:16 36.4 99 18 111/71 97 Room Air )( All Prior VS Reviewed: Yes Condition: Improved Patient Instructions: Infante Catheter Placement and Care (ED) Additional Instructions: Follow-up with your doctor in the office. Return if any immediate issues. Referrals: Fausto Salvador MD (PCP) Lizzy Curry MDibnash Attestation Portions of this note were transcribed by Danni Trotter. I, Dr. Pham, personally performed the history, physical exam, and medical decision-making; I reviewed and confirmed the accuracy of the information in the transcribed note. Signed by: Glo Styles, 07/31/2016, 04:25 copies to: Lizzy Curry MD; Fausto Salvador MD, Christopher W MD July 31, 2016 02:20 DANNI TROTTER July 31, 2016 02:41
[2016-07-31] MEDS ORDERED: Lidocaine 2% 6mL Topical Jelly ONE (02:46)
[2016-07-31] MEDS ORDERED: Lidocaine 2% 6mL Topical Jelly TOPICAL ONE (02:55)
[2016-07-31 03:48] VITALS: BP 120/80; PULSE 90; RESP 17; O2SAT 98
[2016-07-31 04:09] LABS: APPEARANCE,URINE CLOUDY (CLEAR,HAZY); COLOR,URINE DARK YELLOW (YELLOW); OCCULT BLOOD,URINE LARGE (NEGATIVE); UROBILINOGEN,URINE NORMAL (NORMAL)
== END 2016-07-31 03:48 | disposition home or self-care (01) ==
LOC: SED 02:13
DX: R33.9 Retention of urine, unspecified (principal); T83.021A Displacement of indwelling urethral catheter, initial encounter; T83.091A Other mechanical complication of indwelling urethral catheter, initial encounter; Y84.6 Urinary catheterization as the cause of abnormal reaction of the patient, or of later complication, without mention of misadventure at the time of the procedure; E11.9 Type 2 diabetes mellitus without complications; E03.9 Hypothyroidism, unspecified; C67.9 Malignant neoplasm of bladder, unspecified; D64.9 Anemia, unspecified; Z79.4 Long term (current) use of insulin; Z79.82 Long term (current) use of aspirin; Z79.899 Other long term (current) drug therapy

== ENCOUNTER 2016-08-19 20:27 | Inpatient (IN) | payer OTHER ==
[~2016-08-19] VITALS: Ht 185.4 cm; Wt 128.7 kg
[2016-08-19 20:30] VITALS: BP 109/60; PULSE 96; RESP 16; O2SAT 98
--- NOTE | 2016-08-19 21:00 | ED.REPORT ---
HPI- Male Date of Service Aug 19, 2016 ED Provider: Pancho Pham MD Nursing Notes Stated Complaint: CLOGGED CATH Chief Complaint: General Complaint Allergies: Coded Allergies: No Known Allergies (Verified Allergy, Unknown, 08/19/16) Scheduled ([Fentanyl]) 1 PATCH PATCH 1 PATCH TOPICAL Q3D ([Fentanyl]) 1 PATCH PATCH 25 PATCH TOPICAL Q3D Aspirin (Aspirin) 81 Mg Tablet 81 MG PO DAILY Ferrous Sulfate (Feosol) 325 Mg Tablet 325 MG PO BIDWM Gabapentin (Neurontin) 300 Mg Capsule 300 MG PO TID Levothyroxine (Levothyroxine) 50 Mcg Tablet 50 MCG PO DAILYAC Methadone (Methadone) 5 Mg Tablet 10 MG PO Q8H Oxybutynin Chloride (Oxybutynin Chloride) 5 Mg Tablet 5 MG PO TID Sennosides (Senna) 8.6 Mg Tablet 8.6 MG PO BID Sertraline HCl (Sertraline) 50 Mg Tablet 50 MG PO DAILY Sodium Chloride (Sodium Chloride) 1 Gm Tablet 1 GM PO TID Scheduled PRN Gabapentin (Gabapentin) 300 Mg Capsule 300 MG PO DAILY PRN PRN For Pain Hydromorphone (Hydromorphone) 8 Mg Tablet 8 MG PO Q3H PRN PRN Pain Lorazepam (Ativan) 1 Mg Tablet 1 MG PO TID PRN PRN For Anxiety or Agitation Trazodone (Trazodone) 50 Mg Tablet 50 MG PO HS PRN PRN Insomnia diphenhydrAMINE HCl (Benadryl) 25 Mg Capsule 25 MG PO Q6H PRN PRN For Itching Miscellaneous Medications Insulin Detemir (Levemir Flextouch) 100 Unit/1 Ml Insuln.pen 100 UNIT SQ General Time Seen by MD: 20:59 Past Medical History Past Medical History Notes: Urologist Dr. Curry Oncologist Dr. Phipps Past Medical History High grade papillary urothelial carcinoma (patient presented June 10 following a transfer from [place], CT imaging showed a 10 x 6 cm mass, patient underwent incomplete "TURBT" by Dr. Curry 06/10 and post procedure to the patient became hemodynamically unstable and was coded, is reintubated required vasopressor and transfusion of 15 units of red cells as well as FFP and crisis cryoprecipitate. The patient was initiated on chemotherapy earlier this month, June 22 and and after number cycle she will undergo plan radical cystoprostatectomy. Patient is currently on G CSF support) DM type 2 Anemia Hypothyroidism Past Surgical History TURBT (modified for bladder mass) Smoking History Never Smoker Social History Other Social History: Good social support Ambulatory Status Independent Physical Exam Initial Vital Signs Vital Signs (First) Date Time Temp Pulse Resp B/P Pulse Ox O2 Delivery O2 Flow Rate FiO2 08/19/16 20:30 36.6 96 16 109/60 98 Room Air Discharge & Departure Referrals: Fausto Salvador MD (PCP) Pancho Pham MD Aug 19, 2016 21:00
--- NOTE | 2016-08-19 21:06 | ED.REPORT ---
HPI-General Illness Date of Service Aug 19, 2016 ED Provider: Pancho Pham MD Patient is a 51 year old male with a history of bladder cancer and diabetes who presents to the ED due to blood in his catheter that started around 1830 this evening. Associated symptoms include a leaky catheter, fever since yesterday, documented by the visiting nurse, and a cough in the mornings but that is not a new symptom. He denies vomiting or abdominal pain. The patient was hospitalized 07/06/16 due to urinary retention. Patient last received chemotherapy last week. He has an appointment with Dr. Curry for later this week for possible surgical management of his bladder cancer. Apparently, recent CAT scan did not show more widespread disease. Family notes him to be somewhat pale and weak. He is noted on intake here to have a red tender and swollen port site with some drainage from an ulcer. He has bilateral leg edema and swelling and drainage from multiple blisters on his legs, which is chronic, but mildly worse., Nursing Notes Stated Complaint: CLOGGED CATH Chief Complaint: General Complaint Nursing Notes Reviewed: Yes Allergies: Coded Allergies: No Known Allergies (Verified Allergy, Unknown, 08/19/16) Scheduled ([Fentanyl]) 1 PATCH PATCH 1 PATCH TOPICAL Q3D ([Fentanyl]) 1 PATCH PATCH 25 PATCH TOPICAL Q3D Aspirin (Aspirin) 81 Mg Tablet 81 MG PO DAILY Ferrous Sulfate (Feosol) 325 Mg Tablet 325 MG PO BIDWM Gabapentin (Neurontin) 300 Mg Capsule 300 MG PO TID Levothyroxine (Levothyroxine) 50 Mcg Tablet 50 MCG PO DAILYAC Methadone (Methadone) 5 Mg Tablet 10 MG PO Q8H Oxybutynin Chloride (Oxybutynin Chloride) 5 Mg Tablet 5 MG PO TID Sennosides (Senna) 8.6 Mg Tablet 8.6 MG PO BID Sertraline HCl (Sertraline) 50 Mg Tablet 50 MG PO DAILY Sodium Chloride (Sodium Chloride) 1 Gm Tablet 1 GM PO TID Scheduled PRN Gabapentin (Gabapentin) 300 Mg Capsule 300 MG PO DAILY PRN PRN For Pain Hydromorphone (Hydromorphone) 8 Mg Tablet 8 MG PO Q3H PRN PRN Pain Lorazepam (Ativan) 1 Mg Tablet 1 MG PO TID PRN PRN For Anxiety or Agitation Trazodone (Trazodone) 50 Mg Tablet 50 MG PO HS PRN PRN Insomnia diphenhydrAMINE HCl (Benadryl) 25 Mg Capsule 25 MG PO Q6H PRN PRN For Itching Miscellaneous Medications Insulin Detemir (Levemir Flextouch) 100 Unit/1 Ml Insuln.pen 100 UNIT SQ General Time Seen by MD: 20:59 Chief Complaint Other (blood in cath) Hx Obtained From: Patient Arrived By: Walk-in Sudden in Onset?: Yes Onset Occurred: 1 - 4 hours ago Symptom Duration: Since onset Severity: Current: No pain currently Associated with: Reports: Cough, Fever, Denies: Abdominal pain, Vomiting Pertinent Negative: Pt denies other symptoms Recent Healthcare: Recent doctor visit, Recent hospitalization Similar Sx Previous: Yes Past Medical History Past Medical History Notes: Urologist Dr. Curry Oncologist Dr. Phipps Past Medical History High grade papillary urothelial carcinoma (patient presented June 10 following a transfer from [place], CT imaging showed a 10 x 6 cm mass, patient underwent incomplete "TURBT" by Dr. Curry 06/10 and post procedure to the patient became hemodynamically unstable and was coded, is reintubated required vasopressor and transfusion of 15 units of red cells as well as FFP and crisis cryoprecipitate. The patient was initiated on chemotherapy earlier this month, June 22 and and after number cycle she will undergo plan radical cystoprostatectomy. Patient is currently on G CSF support) DM type 2 Anemia Hypothyroidism Past Surgical History TURBT (modified for bladder mass) Smoking History Never Smoker Social History Other Social History: Good social support Ambulatory Status Independent Review of Systems Full Review of Systems Constitutional: Reports: Fever, Denies: Chills Respiratory: Reports: Non-productive cough, Denies: Shortness of breath, Wheezing GI: Denies: Abdominal pain, Nausea, Vomiting Male: Reports Hematuria Complete sys rev & neg: except as marked. Physical Exam Vital Signs Vital Signs Date Time Temp Pulse Resp B/P Pulse Ox O2 Delivery O2 Flow Rate FiO2 08/19/16 22:53 98 13 122/67 89 Room Air 08/19/16 22:53 98 Nasal Cannula 2 08/19/16 21:14 100 15 121/64 96 Room Air 08/19/16 20:30 36.6 96 16 109/60 98 Room Air Initial VS: Reviewed General/Constitutional: Awake, Alert, No acute distress Appearance / Presentation: Positive: Obese Head / Eyes: Atraumatic, Normocephalic, PERRL, EOMI Respiratory / Chest: Atraumatic, Breath sounds NL, Breath sounds = bilat, No respiratory distress tachypneic draining ulcer overlying port on the right side with surrounding erythema ulcer is draining a purulent material Cardiovascular: Heart rate NL, Regular rhythm, Heart sounds NL Abdomen: Atraumatic, Soft, Non-tender LOWER EXTREMITIES: bilateral severe 3+ to 4+ edema with draining vesicles underlying erythema on shins Skin: Atraumatic, No rash, Warm, Dry Neurologic: Oriented X3, Speech NL, No motor deficits, No sensory deficits Psychiatric: Affect NL, Mood NL Interpretation & Diagnostics Lab Results Interpretation Result Diagram: 08/19/16210908/19/162109 Test 08/19/16 21:10 08/19/16 21:40 White Blood Count 7.4th/mm3 (3.8-10.1) Red Blood Count 1.96mil/mm3 (4.40-5.80) Hemoglobin 5.6g/dL (13.8-17.2) Hematocrit 17.6% (41.0-50.0) Mean Corpuscular Volume 89.8fL (81-100) Mean Corpuscular Hemoglobin 28.6pg (27.0-35.0) Mean Corpuscular Hemoglobin Concent 31.8% (32.0-37.0) Red Cell Distribution Width 16.4% (12.3-15.4) Platelet Count 411bil/L (150-400) Neutrophils (%) (Auto) 64.2% (40-74) Lymphocytes (%) (Auto) 8.6% (14-46) Monocytes (%) (Auto) 14.5% (4-12) Eosinophils (%) (Auto) 2.4% (0-5) Basophils (%) (Auto) 0.5% (0-3) Band Neutrophils % 10% (1-5) Sodium Level 132mEq/L (134-144) Potassium Level 5.1mEq/L (3.5-5.2) Chloride Level 95mEq/L (97-108) Carbon Dioxide Level 25mmol/L (18-29) Blood Urea Nitrogen 18mg/dL (6-24) Creatinine 0.72mg/dL (0.76-1.27) Estimat Glomerular Filtration Rate 123mL/min (>59) Glucose Level 100mg/dL (60-99) Lactic Acid Level 1.1mmol/L (0.4-2.0) Calcium Level 8.8mg/dL (8.5-10.1) Magnesium Level 1.9mg/dL (1.6-2.6) Total Bilirubin 0.3mg/dL (0.0-1.2) Aspartate Amino Transf (AST/SGOT) 35U/L (0-50) Alanine Aminotransferase (ALT/SGPT) 14U/L (0-44) Alkaline Phosphatase 321U/L (25-150) Troponin T 0.038ug/L (0.0-0.011) Pro-B-Type Natriuretic Peptide 296.4pg/mL (0-121) Total Protein 6.6g/dL (6.4-8.4) Albumin 3.1g/dL (3.4-5.0) Urine Color Bloody (YELLOW) Urine Appearance Cloudy (CLEAR,HAZY) Urine pH 7.0 (5.0-8.0) Urine Specific [place] 1.020 (1.003-1.035) Urine Protein >300mg/dL (NEG,TRACE) Urine Glucose (UA) Negativemg/dL (NEGATIVE) Urine Ketones Negativemg/dL (NEGATIVE) Urine Occult Blood Large (NEGATIVE) Urine Nitrite Positive (NEGATIVE) Urine Bilirubin Negative (NEGATIVE) Urine Urobilinogen Normalmg/dL (NORMAL) Urine Leukocyte Esterase Small (NEGATIVE) Urine RBC Packed/hpf (0-2) Urine WBC 0-5/hpf (0-5) Urine Epithelial Cells 0/hpf (NONE-MOD) Urine Crystals None seen (NONE SEEN) Urine Bacteria Few/hpf (NONE-FEW) Urine Hyaline Casts None/lpf (NONE) Urine Granular Casts None seen (NONE SEEN) Urine Waxy Casts None seen (NONE SEEN) Urine Red Blood Cell Casts None seen (NONE SEEN) Urine White Blood Cell Casts None seen (NONE SEEN) Urine Mucus None seen (None Seen) Urine Trichomonas None seen (NONE SEEN) Urine Yeast None (NONE SEEN) Urinalysis Comment None Urine Culture Reflexed Indicated ECG Interpretation Time: 21:07 Interpreted by: ED physician Normal ECG Interpretation: Normal rate (98), Normal sinus rhythm X-Ray Chest Interpretation Chest Xray Interpretation: IMPRESSION: Left basilar atelectasis versus pneumonia. Please correlate with clinical data. Dictated by: Lizzy Mays MD, PhD on 08/19/2016 at 21:44 Approved by: Lizzy Mays MD, PhD on 08/19/2016 at 21: View: Portable, 1 view Interpretation / Wet Read by: Interpret - Radiologist Re-Eval/Medical Decision Med Decision/Clinical Course 51-year-old bladder cancer presents ostensibly because of blood in his urinary catheter. However he has an obvious infection of his port, anand pus and cellulitis around it, subjective fever and apparently objective fever measured by visiting nurse at home, severe anemia, and will require admission. Hemoglobin was noted to be 5.5 and four units typed and crossed. Transfusion for two units ordered. He will require additionally removal of his porch, so IV access peripherally has been obtained. Source of his anemia appears to be a combination of his active bleeding in his bladder, but also chemotherapy-induced marrow dysfunction. He also has an incidentally noted elevated troponin, without concomitant renal dysfunction. Severe anemia may be causing strain ischemia and leakage of troponin. He is admitted to a PCU remote bed to manage all of the above issues. Problem by problem #1 anemia severe transfuse. Control bladder bleeding if it is persistent. No evidence of UTI. #2. Elevated troponin trend as above. Aspirin not advised and heparin obviously impossible in the current situation. #3 fever source probably is infected port which will require removal. Blood cultures pending. Begun with Zosyn and vancomycin. #4 cellulitis of legs with chronic edema. Additional potential source for his fever. #[address] cancer[address] Known to Dr. Curry. Possible surgical management planned active hematuria at present. Source of Hx: Old records Time of Eval: 22:38 Re-Evaluation/Progress Note: Discussed results and plan for admit. The patient understands and agrees to the plan. All questions were addressed. Consultation : Referral / Consult Name: Honey Armenta DO Consulted With: Hospitalist Call Returned at: 22:50 [place]el Cementer: Agrees with eval, Agrees with plan, Accepts admit Counseled Regarding: Diagnosis, Lab results, Need for admission Discharge & Departure Primary Impression: Anemia Anemia type: unspecified type Qualified Code: D64.9 - Anemia, unspecified Additional Impressions: Infected venous access port Encounter type: initial encounter Qualified Code: T80.219A - Unspecified infection due to central venous catheter, initial encounter Bladder cancer Bladder location: unspecified site Qualified Code: C67.9 - Malignant neoplasm of bladder, unspecified Elevated troponin Fever Fever type: unspecified Qualified Code: R50.9 - Fever, unspecified Hematuria Disposition: ADMITTED TO HOSPITAL Discharge Condition All VS Reviewed: Yes Condition: Stable Referrals: Fausto Salvador MD (PCP) Lizzy Curry MD Attestation Portions of this note were transcribed by Alejandra Shaw. I, Dr. Pham personally performed the history, physical exam and medical decision-making; I reviewed and confirmed the accuracy of the information in the transcribed note. Signed by: Glo Rebolledo, 08/19/16 and 2123. copies to: Lizzy Curry MD; Fausto Salvador MD, Christopher W MD Aug 19, 2016 21:06 Tennille Shaw Aug 19, 2016 21:12
[2016-08-19 21:14] VITALS: BP 121/64; PULSE 100; RESP 15; O2SAT 96
[2016-08-19 21:32] LABS: Mean Corpuscular Hemoglobin 28.6 pg (27.0-35.0); Mean Corpuscular Volume 89.8 fL (81-100); Platelet Count 411 bil/L (150-400)
--- NOTE | 2016-08-19 21:46 | DRSVH ---
PROCEDURE: X-RAY CHEST ONE VIEW, PORTABLE ([id number]) INDICATIONS: concern for infected port TECHNIQUE: One view of the chest was acquired. COMPARISON: None. FINDINGS: Surgical changes and devices: Right wall Port-A-Cath. Lungs and pleura: No pleural effusions or pneumothorax. Increased opacification noted in the left stephie ng base suspicious for atelectasis versus pneumonia. Mediastinum: Mediastinal contours appear normal. Heart size is normal. Bones and chest wall: No suspicious bony lesions. Overlying soft tissues appear unremarkable. IMPRESSION: Left basilar atelectasis versus pneumonia. Please correlate with clinical data. Dictated by: Lizzy Mays MD, PhD on 08/19/2016 at 21:44 Approved by: Lizzy Mays MD, PhD on 08/19/2016 at 21:45
[2016-08-19 21:52] LABS: Magnesium 1.9 mg/dL (1.6-2.6)
[2016-08-19 21:55] LABS: BASOPHILS % (AUTO) 0.5 % (0-3); EOSINOPHILS % (AUTO) 2.4 % (0-5); MONOCYTES % (AUTO) 14.5 % (4-12); NEUTROPHILS % (AUTO) 64.2 % (40-74)
[2016-08-19 21:56] LABS: APPEARANCE,URINE CLOUDY (CLEAR,HAZY); COLOR,URINE BLOODY (YELLOW); OCCULT BLOOD,URINE LARGE (NEGATIVE); UROBILINOGEN,URINE NORMAL (NORMAL)
[2016-08-19 22:12] LABS: TROPONIN T 0.038 ug/L (0.0-0.011)
[2016-08-19] MEDS ORDERED: Furosemide 10 mg/mL 10 mL Inj IVPUSH ONE (22:15)
[2016-08-19 22:53] VITALS: BP 122/67; PULSE 98; RESP 13; O2SAT 89; O2SAT 98
[2016-08-20] VITALS (23 sets, daily range): BP systolic 104–127; BP diastolic 59–79; PULSE 69–95; RESP 14–19; O2SAT 91–99
[2016-08-20] MEDS ORDERED: Ondansetron 2 mg/mL 2 mL Inj IVPUSH PRN ×2 (01:30→14:05)
[2016-08-20] MEDS ORDERED: Alum-Mag Hydrox-Simeth 30 mL Suspension PO PRN ×2 (01:30→03:35)
--- NOTE | 2016-08-20 01:59 | PCM.HPMED ---
Subjective Date of Service Aug 20, 2016 Primary Provider: Admitting Physician: Honey Armenta DO Primary Care Physician: Fuasto Salvador MD Attending Physician: Honey Armenta DO Admit Status: From the Emergency Department Chief Complaint: blood in urine History of Present Illness: 51yoM with history of high grade papillary urothelial carcinoma s/p incomplete TURBT, DM2, and hyperlipidemia, that presented to [facility] with recurrent hematuria , increased fatigue and mild fevers Patient and his are primary historians. gives majority of history as patient is fatigued. Patient with chemotherapy which ended recently on the . Since this time patient has been doing relatively well however began to have aches and chills over the prior weekend and missed his follow up oncology appointment to review the most recent surveillance CT scan. He has noted subjective fevers over the past 2-3 days as well. 08/19 patient began to have recurrent hematuria which became persistent and was brought into the ED for further evaluation. Upon initial exam patient was found to have purulent drainage from port and increased erythema and possible purulent drainage from lower extremity wounds. CBC was revealing for hemoglobin of 5.6 with ongoing hematuria. Of note, patient was seen in 06/2016 with partial resection of bladder tumor with subsequent requirement of 15 units pRBC and respiratory failure secondary to acute blood loss anemia. He is scheduled for further evaluation by urology on 08/21 to reassess for need of cystectomy. Review of Systems: complete review of systems obtained. positive as per hpi otherwise negative. Allergies Coded Allergies: No Known Allergies (Verified Allergy, Unknown, 08/19/16) Home Medications med rec has not been completed on admission and medications will need to be verified prior to ordering Scheduled Aspirin (Aspirin) 81 Mg Tablet 81 MG PO DAILY Ferrous Sulfate (Feosol) 325 Mg Tablet 325 MG PO BIDWM Gabapentin (Neurontin) 300 Mg Capsule 300 MG PO TID Levothyroxine (Levothyroxine) 50 Mcg Tablet 50 MCG PO DAILYAC Methadone (Methadone) 5 Mg Tablet 10 MG PO Q8H Oxybutynin Chloride (Oxybutynin Chloride) 5 Mg Tablet 5 MG PO TID Sennosides (Senna) 8.6 Mg Tablet 8.6 MG PO BID Sertraline HCl (Sertraline) 50 Mg Tablet 50 MG PO DAILY Sodium Chloride (Sodium Chloride) 1 Gm Tablet 1 GM PO TID Scheduled PRN Gabapentin (Gabapentin) 300 Mg Capsule 300 MG PO DAILY PRN PRN For Pain Hydromorphone (Hydromorphone) 8 Mg Tablet 8 MG PO Q3H PRN PRN Pain Lorazepam (Ativan) 1 Mg Tablet 1 MG PO TID PRN PRN For Anxiety or Agitation Trazodone (Trazodone) 50 Mg Tablet 50 MG PO HS PRN PRN Insomnia diphenhydrAMINE HCl (Benadryl) 25 Mg Capsule 25 MG PO Q6H PRN PRN For Itching Miscellaneous Medications Insulin Detemir (Levemir Flextouch) 100 Unit/1 Ml Insuln.pen 100 UNIT SQ PMH Acute respiratory failure requiring intubation secondary to hemorrhagic shock Cardiac arrest Type II diabetes Acute blood loss anemia status post 15 units packed red blood cells plus FFP plus cryoprecipitate High-grade papillary urothelial carcinoma Hyperlipidemia Surgical History Left shoulder arthroscopy Transurethral resection of bladder tumor May 2016 Family History Patient denies any family history of malignancies, pulmonary disease, coronary disease Social History Hx Alcohol Use: Yes (no current use) Hx Substance Use: No Hx Tobacco Use: No Smoking Status: Never Smoker Exam Vital Signs Vital Sign - Last Date Time Temp Pulse Resp B/P Pulse Ox O2 Delivery O2 Flow Rate FiO2 08/19/16 22:53 98 13 122/67 89 Room Air 08/19/16 22:53 2 08/19/16 20:30 36.6 Intake and Output 08/19/16 08/19/16 08/20/16 Cumulative From/Thru 15:00 23:00 07:00 08/19/16 20:30 - 08/20/16 01:41 Output Total 450 ml 2525 ml 2975 ml Balance -450 ml -2525 ml -2975 ml Output Urine Total 450 ml 2525 ml 2975 ml Exam General: Alert, Oriented X3, Cooperative, No acute Distress, obvious fatigue Eyes: PERRLA, Scleral Anicteric Mouth: Mouth Normal, Mucous Membranes Moist/[place] Neck: Supple, no Thyromegaly, trachea central. Chest & Lungs: Clear to auscultation & percussion, No adventitious breath sounds, no crackles, no wheeze, purulent drainage from right port site Cardiovascular: Normal S1, Normal S2, No Murmurs/Rubs/Gallops, Regular Rate/ Rhythm, (No JVD, no peripheral edema) Pulses: Radial (present and equal), Dorsalis Pedi (present and equal) Abdomen: Soft, tender lower quadrants and suprapubic, no rebound, Non-distended , hypoactive bowel tones. Musculoskeletal: Unremarkable. Normal range of motion, no swollen or erythematous joints Extremities: 1-2+ pitting edema, no cyanosis, no clubbing, excoriations bilateral with purulent drainage Skin: No rashes. Warm and dry, no erythematous areas Neurological: Grossly neurologically intact, Normal Speech, Sensation Intact Lymphatic: Lymph nodes Cervical and Axillary not palpable Lab and Diagnostics Result Diagram: 08/19/16210908/[id number] X-Rays, CTs and MRIs vPatient Name: DIANA CROWELL MR#: [id number] Location: [facility] [place] Ordering Phys: KARENA SANTOS MD Date of Service: 08/19/162057 PROCEDURE: X-RAY CHEST ONE VIEW, PORTABLE ([id number]) INDICATIONS: concern for infected port TECHNIQUE: One view of the chest was acquired. COMPARISON: None. FINDINGS: Surgical changes and devices: Right wall Port-A-Cath. Lungs and pleura: No pleural effusions or pneumothorax. Increased opacification noted in the left lung base suspicious for atelectasis versus pneumonia. Mediastinum: Mediastinal contours appear normal. Heart size is normal. Bones and chest wall: No suspicious bony lesions. Overlying soft tissues appear unremarkable. IMPRESSION: Left basilar atelectasis versus pneumonia. Please correlate with clinical data. Dictated by: Lizzy Mays MD, PhD on 08/19/2016 at 21:44 Approved by: Lizzy Mays MD, PhD on 08/19/2016 at 21:45 Assessment & Plan 51yoM with history of high grade papillary urothelial carcinoma s/p incomplete TURBT, DM2, and hyperlipidemia, that presented to [facility] with recurrent hematuria , increased fatigue and mild fevers Acute blood loss anemia, acute, POA -secondary to hematuria, onset 08/19 at 1800 -s/p 2 units pRBCs -keep 3 units in house at all times -closely monitor H&H, q4hr -consult urology in am Port infection, acute, POA -purulent discharge from port site -f/u blood cx -piperacillin-tazobactam, vancomycin started in ED, continue, pharmacy to dose vancomycin -consult infectious disease in am -consult oncology in am Cellulitis bilateral, acute, POA -worsening lower extremity abrasions with purulent drainage, increased erythema and tenderness -continue piperacillin-tazobactam, vancomycin Leukocytosis, acute, POA -secondary to above infections -treat as above Hyponatremia, acute, POA -mild -continue to monitor Elevated troponin, acute, POA -likely demand ischemia -trend troponins -holding ASA given acute blood loss anemia Pain management, chronic -managed at home with methadone and hydromorphone, will continue, reviewed medication list from home Diabetes, insulin dependent -NPO at this time -regular insulin low correction sliding scale Hypothyroidism, chronic, POA -continue levothyroxine Papillary urothelial carcinoma, chronic -finished chemotherapy 08/05 -management as per oncology Pain Evaluation: Adequate Pain Control VTE Prophylaxis: SCDs Resuscitation Status: CPR: Attempt Resuscitation Honey Armenta DO Aug 20, 2016 01:59
[2016-08-20] MEDS ORDERED: Dextrose 10% 250 ML IV PRN (02:25)
[2016-08-20] MEDS: Insulin Human REGular 300 Unit/3 mL Inj SUBQ SCH ×4 (02:30→20:30)
[2016-08-20] MEDS: Vancomycin Dose per Pharmacist XX SCH ×2 (02:55→08:30)
--- NOTE | 2016-08-20 03:14 | NUR ---
Admit [facility] Pt transferred to bed using slider board and 4 person total assist. Pt Ox3, drowsy at this time. Pain in bladder 08/22. Dilaudid given in ER. Blood infusing at 200ml/hr on infusion pump upon arrival. Bedside report received from ED RN. ARMAND. Tele applied, SR 90's. , DPOA, at bedside and helpful with verbal health history as well as med rec. Pt oriented to room. See flowsheet for full assessment.
[2016-08-20] MEDS ORDERED: Vancomycin Inj 2,000 MG in 0.9% Sodium Chloride 500 ML IV ONE (03:15)
[2016-08-20] MEDS ORDERED: Polyethylene Glycol (PEG) 17 Gm Powder PO PRN (03:35)
--- NOTE | 2016-08-20 04:19 | PCM.CONPHA ---
Subjective Date of Service: Aug 20, 2016 Requesting Provider: Honey Armenta DO blood in urine Reason for Pharmacy Consult: Vancomycin Dosing Objective Vital Signs Date Time Temp Pulse Resp B/P Pulse Ox O2 Delivery O2 Flow Rate FiO2 08/20/16 03:40 92 08/20/16 03:30 37.0 91 18 108/62 08/20/16 02:18 36.8 95 18 124/79 94 Nasal Cannula 2.00 08/20/16 02:17 36.7 94 16 123/71 98 Nasal Cannula 2.5 08/20/16 01:15 36.9 93 14 08/19/16 22:53 98 13 122/67 89 Room Air 08/19/16 22:53 98 Nasal Cannula 2 08/19/16 21:14 100 15 121/64 96 Room Air 08/19/16 20:30 36.6 96 16 109/60 98 Room Air Intake and Output 08/18/16 08/19/16 08/20/16 00:00 00:00 00:00 Output Total 1650 ml Balance -1650 ml Weight (Kilograms): 138.300 Height (Feet): 6 Height (Inches): 1.00 Test 08/19/16 21:10 08/19/16 21:40 White Blood Count 7.4th/mm3 (3.8-10.1) Red Blood Count 1.96mil/mm3 (4.40-5.80) Hemoglobin 5.6g/dL (13.8-17.2) Hematocrit 17.6% (41.0-50.0) Mean Corpuscular Volume 89.8fL (81-100) Mean Corpuscular Hemoglobin 28.6pg (27.0-35.0) Mean Corpuscular Hemoglobin Concent 31.8% (32.0-37.0) Red Cell Distribution Width 16.4% (12.3-15.4) Platelet Count 411bil/L (150-400) Neutrophils (%) (Auto) 64.2% (40-74) Lymphocytes (%) (Auto) 8.6% (14-46) Monocytes (%) (Auto) 14.5% (4-12) Eosinophils (%) (Auto) 2.4% (0-5) Basophils (%) (Auto) 0.5% (0-3) Band Neutrophils % 10% (1-5) Sodium Level 132mEq/L (134-144) Potassium Level 5.1mEq/L (3.5-5.2) Chloride Level 95mEq/L (97-108) Carbon Dioxide Level 25mmol/L (18-29) Blood Urea Nitrogen 18mg/dL (6-24) Creatinine 0.72mg/dL (0.76-1.27) Estimat Glomerular Filtration Rate 123mL/min (>59) Glucose Level 100mg/dL (60-99) Lactic Acid Level 1.1mmol/L (0.4-2.0) Calcium Level 8.8mg/dL (8.5-10.1) Magnesium Level 1.9mg/dL (1.6-2.6) Total Bilirubin 0.3mg/dL (0.0-1.2) Aspartate Amino Transf (AST/SGOT) 35U/L (0-50) Alanine Aminotransferase (ALT/SGPT) 14U/L (0-44) Alkaline Phosphatase 321U/L (25-150) Troponin T 0.038ug/L (0.0-0.011) Pro-B-Type Natriuretic Peptide 296.4pg/mL (0-121) Total Protein 6.6g/dL (6.4-8.4) Albumin 3.1g/dL (3.4-5.0) Urine Color Bloody (YELLOW) Urine Appearance Cloudy (CLEAR,HAZY) Urine pH 7.0 (5.0-8.0) Urine Specific [place] 1.020 (1.003-1.035) Urine Protein >300mg/dL (NEG,TRACE) Urine Glucose (UA) Negativemg/dL (NEGATIVE) Urine Ketones Negativemg/dL (NEGATIVE) Urine Occult Blood Large (NEGATIVE) Urine Nitrite Positive (NEGATIVE) Urine Bilirubin Negative (NEGATIVE) Urine Urobilinogen Normalmg/dL (NORMAL) Urine Leukocyte Esterase Small (NEGATIVE) Urine RBC Packed/hpf (0-2) Urine WBC 0-5/hpf (0-5) Urine Epithelial Cells 0/hpf (NONE-MOD) Urine Crystals None seen (NONE SEEN) Urine Bacteria Few/hpf (NONE-FEW) Urine Hyaline Casts None/lpf (NONE) Urine Granular Casts None seen (NONE SEEN) Urine Waxy Casts None seen (NONE SEEN) Urine Red Blood Cell Casts None seen (NONE SEEN) Urine White Blood Cell Casts None seen (NONE SEEN) Urine Mucus None seen (None Seen) Urine Trichomonas None seen (NONE SEEN) Urine Yeast None (NONE SEEN) Urinalysis Comment None Urine Culture Reflexed Indicated Assessment/Plan Assessment/Plan A: * Vancomycin dosing by pharmacy by 51 y/o man with port infection and cellulitis * He is also being started on Zosyn * Estimated CrCl for this patient is >120 mL/min (Cockcroft & Gault) * Estimated vancomycin half-life is 7 hours and estimated Vd is 76 liters (0.55 L/kg for BMI of 40.2) P: * Give one 2000 mg IV vancomycin loading dose * Continue with vancomycin 1250 mg IV every 8 hours * Target a vancomycin trough range of 15 - 20 mcg/mL * Draw a trough level prior to the fourth dose Thank you. Pharmacy will continue to follow this patient. Leeann Price Aug 20, 2016 04:19
[2016-08-20 05:07] LABS: Platelet Count 354 bil/L (150-400)
[2016-08-20] MEDS: Piperacillin-Tazo 3.375 Gm Inj 3.375 GM in Dextrose 5% Minibag Plus 50 ML IV SCH ×3 (05:59→20:02)
[2016-08-20] MEDS: 0.9% Sodium Chloride 1,000 ML IV SCH ×2 (05:59→14:45)
[2016-08-20 06:08] LABS: BASOPHILS % (AUTO) 0 % (0-3); EOSINOPHILS % (AUTO) 1 % (0-5); MONOCYTES % (AUTO) 13 % (4-12); NEUTROPHILS % (AUTO) 60 % (40-74)
[2016-08-20] MEDS ORDERED: Propofol 10,000 mCg/mL 20 mL Inj ONE (10:00)
[2016-08-20] MEDS ORDERED: Ketamine 10 mg/mL 20 mL Inj ONE (10:00)
--- NOTE | 2016-08-20 10:21 | CONS ---
[address] [address] CONSULTATION REPORT PATIENT: DIANA CROWELL : 1965 MR#: [id number] ADMIT: 08/19/2016 JOB ID: [id number] DATE OF SERVICE: 08/20/[address] Luci Brown for this timely consult. REASON FOR CONSULTATION: Port catheter infection and heavy hematuria from bladder malignancy resulting in symptomatic anemia. HISTORY OF PRESENT ILLNESS: The patient is an unfortunate 51-year-old [employer] who has underlying medical problems of hypothyroidism, hyperlipidemia, and diabetes. He was in his usual state of good health until late May of this year when he developed hematuria and dysuria. This was evaluated and was found to have an invasive high-grade bladder cancer. At one point, he had so much hemorrhaging that he actually suffered a cardiac arrest and was in the ICU because of heavy bleeding from this bladder malignancy. The initial plan was to give him four cycles of MVAC which is a combination of methotrexate, vinblastine, Adriamycin, and cisplatin. The patient finished that chemotherapy late last month. That chemo was delivered through a PICC line that had been placed back on June [address] Damaris Mohamud. The patient has had intermittent troubles with fairly heavy hematuria and has had a Weathers catheter through much of this is 2-1/2 months or so of illness. There are plans to do a complete resection of his bladder and it looks like from Dr. Phipps's notes that this is planned for around the end of August or start of September depending on how the patient is doing. Recently the patient has been at home in [place] and has had a Weathers catheter. He has been doing relatively well following the cessation of his chemo a couple weeks ago. He is now admitted with a combination of problems including a great deal of difficulty getting any urine out through the Weathers catheter which has been associated with considerable darkening of the urine as well as a seemingly separate process in which he has developed fevers, chills, myalgias, arthralgias, and malaise over the past day or two. Because of these dual complaints he was admitted through the emergency department last night. The patient tells us he has not had any significant problem with his port catheter, though I and other observers have noted that it is erythematous and seems to be leaking a small amount of purulent material. He notes he has an a.m. cough which is productive of minimal amounts of sputum and that has been relatively constant and he has no new pulmonary symptoms. He has noted some very mild sore throat perhaps in the last day or two in association with these other symptoms. No significant abdominal complaints. No nausea, vomiting, or diarrhea. He has, as mentioned, had trouble getting urine out of the Weathers and the urine has become quite a bit darker. He also notes that in general he has been becoming weak over the past day or two or so. PAST MEDICAL HISTORY: 1. Bladder cancer diagnosed June 2016. a. Status post four cycles of MVAC which is felt to be the complete course he is going to receive. b. Multiple episodes of severe hemorrhage including the current episode producing symptomatic anemia and in one case cardiac arrest and prolonged ICU stay. c. Planned bladder resection. 2. Hyperlipidemia. 3. Diabetes mellitus. 4. Status post port catheter placement June 17. 5. History of enterococcal UTI within the past two months. 6. Hypothyroidism. SOCIAL HISTORY: The patient smoked very briefly as young man and ever since. He was a social drinker, but has dropped that more recently. He served in the [employer] for 12 years including prolonged stents in [place] during which he swam in fresh water [place]. He is not aware if he was ever checked for Schistosoma haematobium. FAMILY HISTORY: Negative for tuberculosis in first and second-degree relatives. REVIEW OF SYSTEMS: Done in its entirety. As noted, the patient has fever and chills for the last couple days. He denies any significant headache. No sinus pressure. No change in his vision. He has had some mild sore throat for a couple days. No stiff neck. Morning cough which is productive and has been there for weeks if not longer and has not changed. No significant shortness of breath, but he is diffusely weak and it is getting worse. No nausea, vomiting, diarrhea, or upper abdominal pain. He has had some pain around the bladder and has noticed his urine through his Weathers has gotten darker and harder to express. He has not noticed swollen lymph nodes. His legs have been swollen and erythematous below the knees and that it has been going on since about the time he was diagnosed with this malignancy. He has also noticed a progressive loss of sensation in his lower extremities, right greater than left also since the start of this malignancy and its treatment. Remainder of the review of systems is negative. PHYSICAL EXAMINATION: Reveals a morbidly obese gentleman. Weight 138 kg, BMI just above 40. He currently looks tired and pale lying supine in his hospital bed in the [facility]. He has been afebrile since admission. His current temperature is 37 degrees. His pulse 90, respiratory rate 18, blood pressure 108/59. He is saturating 94% on 2 L. He is awake, alert, and able to give a good history though he says he has got a lot of pain meds and has been sleep deprived so he is having a little bit of trouble with dates and places, but in general is a good historian. His head is without evidence of trauma. There is no temporal wasting. No conjunctivitis or scleral icterus. His sinuses are nontender. His nose is normal. His oral cavity is free of thrush, hairy leukoplakia, or pharyngitis. His neck is supple. It is relatively obese, and I cannot assess whether he has JVD or not. He does not have cervical or supraclavicular lymphadenopathy. A port catheter is present in the right upper chest. It is surprisingly not tender, but the area overlying the port is diffusely erythematous and with a little pressure applied light green purulent material comes out and drops from the port. A sample of that was collected and will be sent to the lab for routine culture. His lungs are clear bilaterally. Cardiac tones with a 1/6 systolic murmur heard best along the lower left sternal border. S1 and S2 are crisp and there is no rub. His abdomen is obese, soft, and nontender. There is no hepatosplenomegaly. There is no real significant suprapubic tenderness either. He has no inguinal adenopathy. A Weathers catheter is present and is draining dark bloody urine. The upper portion of the lower extremities are relatively benign. Below the knee however there is a symmetrical erythematous process involving the legs up to almost the knees. This is a blanching, slightly warm, slightly tender, erythematous rash without bullae. There are however some shallow excoriations present over both lower extremities below the knees. There is roughly a 3+ edema up to the knees bilaterally. The feet are also impacted by this as they are swollen and erythematous. The feet have decreased sensation bilaterally worse on the right than the left. The patient has almost insensate with respect to the right foot, though we can appreciate some light touch on the left. He can move all his extremities. No additional motor examination was done. There is no evidence for synovitis or joint inflammation anywhere, and I did not appreciate any adenopathy anywhere. LABORATORIES: Include a white blood count 6600, hematocrit 21, platelet count 354,000 and note that his white count is very much left-shifted with 13% bands. His creatinine is 0.64. His LFTs are normal except for an alk phos which is climbing 321 last night in the ED and 280 now. It used to be a couple months ago was actually normal. Albumin 2.7. A stat pro calcitonin was added by me this morning. Urinalysis has no white cells, but is packed with red cells. Micro studies that are pending include a urine culture as well as blood cultures. There is a swab of the port that is down in the micro lab are ready, and I called and reviewed the Gram stain with the head of micro. There is a few GPCs present in that material and a few white blood cells. In going back further into the chart the patient has previously had enterococci growth from urine on at least two occasions in July and these enterococci were susceptible to the usual agents. In terms of imaging, we have a chest x-ray from last night which I reviewed carefully on the view screen. It shows a subtle left lower lobe infiltrate, which could be atelectasis or pneumonia. The patient states that he had a CT of his pelvis done recently at [facility], but that is not visible on our machine at this time. Note that I tried to get the films through [employer], but was unable to see the recent CT of his abdomen and pelvis. IMPRESSION: This extremely unfortunate 51-year-old gentleman who about 2-1/2 months ago was diagnosed with invasive bladder cancer. He has suffered a couple major bleeds as a result of this and currently is quite anemic on the basis of ongoing gross hematuria. The etiology of his fevers, chills, myalgias, arthralgias, and malaise would appear to be clearly his port catheter which is obviously infected. He has finished his chemo and at this point, I think the obvious answer to at least part of his infection problem is to remove the port and the likely organisms here would include a Staph or Enterococci as gram-positive cocci were seen on the Gram stain. The light green color of the fluid could just indicate there is pus in there, but also makes me worry a little about Pseudomonas so I think broad-spectrum coverage is indicated until we have back our final result. The port should probably be removed today. It is also possible, of course, that he has a urinary tract infection, but it is going to be difficult to tell and he has an indwelling Weathers. He does not have any white cells in his urine, which is a little surprising. I am inclined to think if we do find a bacteria in his urine it is probably going to be colonization rather than infection. On a different topic, this patient swam in [place] on many occasions when he was in the [employer] as well as other fresh water bodies perhaps in [place] as part of his duties there. It is certainly possible that his bladder cancer is related issues to Schistosoma haematobium. At this point, I think it is more than an academic point than something of clinical significance as he will soon be undergoing a complete bladder resection, but it may be worthwhile simply to characterize the nature of his bladder cancer by checking a Schistosoma antibody, which I have ordered. RECOMMENDATIONS: 1. Additional culture from the port has been sent. 2. Schistosoma antibody has been consent. 3. I agree with the vancomycin and Zosyn he is receiving. 4. His port catheter should be removed and cultured as soon as possible. 5. This case discussed in detail with Dr. Luci Brown, and I plan to place a call to Dr. Mohamud of Surgery.
[2016-08-20] MEDS ORDERED: METH5TAB3 PO (12:31)
[2016-08-20] MEDS ORDERED: POTA-62 PO (12:36)
[2016-08-20] MEDS ORDERED: ALPR1TAB7 PO (12:36)
[2016-08-20] MEDS ORDERED: INSU100I25 SQ (12:36)
[2016-08-20] MEDS ORDERED: SERT20OR PO (12:36)
[2016-08-20] MEDS ORDERED: LORA0.5T PO (12:36)
[2016-08-20] MEDS ORDERED: FURO40TA4 PO (12:36)
[2016-08-20] MEDS ORDERED: ONDA-53 PO (12:36)
--- NOTE | 2016-08-20 12:55 | NUR ---
Palliative Care Palliative Care received verbal order from Dr Deleon 08/20/16 to assist with pain/symptom management. Patient is a 51 year old man who is well-known to the inpatient/outpatient palliative team. He has history of high grade papillary urothelial carcinoma s/p incomplete TURBT. He was admitted 08/19/16 for care of recurrent hematuria, increased fatigue and mild fevers. Patient lives at home with his . Sherly Knutson () [phone], Palliative Care to follow. Mallika Garcia
[2016-08-20] MEDS: Vancomycin Inj 1,250 MG in 0.9% Sodium Chloride 250 ML IV SCH ×2 (13:01→20:03)
--- NOTE | 2016-08-20 13:41 | PCM.CONPAL ---
Date of Service Aug 20, 2016 Date of Hospital Admission: Aug 19, 2016 at 23:37 Date of Palliative Consult: Aug 20, 2016 Requesting Provider: Tiara Deleon DO Reason Palliative Care Consult: Pain Hospital Unit @time of consult: Progressive Care Palliative Care Recommendation Unfortunate 51-year-old gentleman, well-known to the palliative medicine service , with muscle invasive high-grade bladder urothelial carcinoma, status post chemotherapy and awaiting urologic surgical intervention, admitted with hematuria, severe anemia, fever, etc. and evidence of infected right chest access port. Palliative medicine consulted to assist with symptoms/pain management. Summary of palliative recommendations: -Symptom management (Pain/other)- see review of current outpatient pain medications below in HPI. I have ordered his usual scheduled methadone and prn hydromorphone. Reviewed his updated medication list with his nurse who will complete his medical reconciliation in the EMR. Continue to follow and adjust medications as needed in the coming days. -DPOA/Advanced Directives/POLST- full code -Family/emotional support- excellent support from his Additional Medical Diagnoses with primary management by Hospitalist team include : Acute blood loss anemia, acute, POA Port infection, acute, POA Cellulitis bilateral, acute, POA Leukocytosis, acute, POA Hyponatremia, acute, POA Elevated troponin, acute, POA Pain management, chronic Diabetes, insulin dependent Hypothyroidism, chronic, POA Papillary urothelial carcinoma, chronic Problems: End of Life Preferences Full code Disposition To be determined Resuscitation Status Resuscitation Status: CPR: Attempt Resuscitation POLST Updates/Changes Previous POLST?: No . Pain: Mild Symptom management: Drowsiness/sleepiness, Pain Pt History History of Present Illness Per admission H&P: 51yoM with history of high grade papillary urothelial carcinoma s/p incomplete TURBT, DM2, and hyperlipidemia, that presented to [facility] with recurrent hematuria , increased fatigue and mild fevers Patient and his are primary historians. gives majority of history as patient is fatigued. Patient with chemotherapy which ended recently on the . Since this time patient has been doing relatively well however began to have aches and chills over the prior weekend and missed his follow up oncology appointment to review the most recent surveillance CT scan. He has noted subjective fevers over the past 2-3 days as well. 08/19 patient began to have recurrent hematuria which became persistent and was brought into the ED for further evaluation. Upon initial exam patient was found to have purulent drainage from port and increased erythema and possible purulent drainage from lower extremity wounds. CBC was revealing for hemoglobin of 5.6 with ongoing hematuria. Of note, patient was seen in 06/2016 with partial resection of bladder tumor with subsequent requirement of 15 units pRBC and respiratory failure secondary to acute blood loss anemia. He is scheduled for further evaluation by urology on 08/21 to reassess for need of cystectomy. Palliative medicine consulted to assist with symptom management/pain control. Patient is very well-known to our service- we have followed him previously as an inpatient and as an outpatient. Prior to visiting, I reviewed his records in the EMR in detail, spoke with his bedside nurse and with his . History was primarily obtained from her has the patient was quite sleepy and fatigued. Patient was able to tell me that prior to the last several days preceding admission, he had overall been doing reasonably well. Recently had CT scan in [place] to follow-up on his bladder tumor. Completed his chemotherapy as outpatient under direction of Dr. Phipps. Said that his pain control prior to the last several days had been adequate, but as his urinary symptoms developed he experienced worsening discomfort. He was unable to recall his current medication doses so I reviewed these in detail with his by phone. She confirmed that his current medications include: Methadone 15 mg scheduled every 8 hours Hydromorphone 8 mg prn every 3 hours Lorazepam 1 mg prn TID Sertraline 100 mg daily Alprazolam 1 mg at at bedtime prn He no longer uses fentanyl which caused delirium; he is no longer using gabapentin or trazodone Past Medical History Significant PMH Noted: Acute respiratory failure requiring intubation secondary to hemorrhagic shock Cardiac arrest Type II diabetes Acute blood loss anemia status post 15 units packed red blood cells plus FFP plus cryoprecipitate High-grade papillary urothelial carcinoma Hyperlipidemia Surgical History Left shoulder arthroscopy Transurethral resection of bladder tumor May 2016 Social History Occupation: Retired . Until recently, worked in a [employer]. ; lives in [place] Living Situation: Lives with his at home Palliative Performance Scale PPS Patient Status: Current PPS Ambulation: Reduced PPS Activity: Unable to do most activity PPS Self-Care: Occasional assistance necessary PPS Intake: Normal or reduced PPS Conscious Level: Full or confusion Performance Scale: 60% POLST at Time of Admission Previous POLST?: No Allergy Allergies Reviewed: Yes Medications Current Medications: Current Medications Al Hydrox/Mg Hydrox/Simethicone 30 ml Q6 PRN PO; Start 08/20/16 at 01:30; Stop 08/20/16 at 04:01; Status DC Ondansetron HCl Dose range: 4 mg to 8 mg Q4H PRN IVPUSH; Start 08/20/16 at 01:30 ; Stop 08/20/16 at 04:00; Status DC Acetaminophen 975 mg Q6H PRN PO; Start 08/20/16 at 01:30 Hydromorphone HCl 8 mg Q3H PRN PO Last administered on 08/20/16 13:11; Admin Dose 8 MG; Start 08/20/16 at 02:15 Methadone HCl 15 mg Q8H PRN PO; Start 08/20/16 at 02:15; Stop 08/20/16 at 12:41; Status DC Levothyroxine Sodium 50 mcg DAILYAC PO; Start 08/20/16 at 07:30 Sertraline HCl 100 mg DAILY PO; Start 08/20/16 at 08:30 Oxybutynin Chloride 5 mg 5 mg TID PO; Start 08/20/16 at 08:30 Sodium Chloride 1,000 ml @ 80 mls/hr [id number] IV Last administered on 08/20/16 05:59; Admin Dose 80 MLS/HR; Start 08/20/16 at 02:15 Insulin Human Regular * Low Dose Insulin Algori... Q6 SUBQ; Start 08/20/16 at 02: 30 Dextrose/Water 250 ml @ 750 mls/hr Q20M PRN IV; Start 08/20/16 at 02:25 Hydromorphone HCl 1-2MG Q4H PRN IVPUSH; Start 08/20/16 at 02:35 Piperacillin Sod/ Tazobactam Sod/ Dextrose/Water 50 ml @ 12.5 mls/hr Q8H IV Last administered on 08/20/16 12:01; Admin Dose 12.5 MLS/HR; Start 08/20/16 at 03 :30 Pharmacy Consult 1 ea DAILY XX Last administered on 08/20/16 08:30; Admin Dose 1 EA; Start 08/20/16 at 02:55 Al Hydrox/Mg Hydrox/Simethicone 30 ml Q6H PRN PO; Start 08/20/16 at 03:35 Ondansetron HCl 4 to 8 mg Q4H PRN IVPUSH; Start 08/20/16 at 03:35 Senna 17.2 mg BID PRN PO; Start 08/20/16 at 03:35 Polyethylene Glycol 17 gm 17 gm DAILY PRN PO; Start 08/20/16 at 03:35 Vancomycin HCl/ Sodium Chloride 250 ml @ 166.667 mls/hr Q8H IV Last administered on 08/20/16t 13:01; Admin Dose 166.667 MLS/HR; Start 08/20/16 at 12: 00 Methadone HCl 15 mg Q8H PO; Start 08/20/16 at 18:15 Lorazepam 1 mg TID PRN PO; Start 08/20/16 at 12:40 Melatonin 5 mg HS PRN PO; Start 08/20/16 at 12:40 Scheduled Aspirin (Aspirin) 81 Mg Tablet 81 MG PO DAILY Furosemide (Furosemide) 40 Mg Tablet 40 MG PO DAILY Insulin Detemir (Levemir Flextouch) 100 Unit/1 Ml Insuln.pen 65 UNIT SQ DAILY Levothyroxine (Levothyroxine) 50 Mcg Tablet 50 MCG PO DAILYAC Methadone (Methadone) 5 Mg Tablet 15 MG PO Q6H Oxybutynin Chloride (Oxybutynin Chloride) 5 Mg Tablet 5 MG PO TID Potassium Chloride ER (Potassium Chloride ER) 20 Meq Tablet.er 20 MEQ PO DAILY TAKE WITH FOOD Sertraline HCl (Zoloft) 20 Mg/1 Ml Oral.conc 100 MG PO DAILY Scheduled PRN Alprazolam (Alprazolam) 1 Mg Tablet 1 MG PO HS PRN PRN For Anxiety Hydromorphone (Hydromorphone) 8 Mg Tablet 8 MG PO Q3H PRN PRN Pain Lorazepam (Lorazepam) 0.5 Mg Tablet 0.5 MG PO TID PRN PRN For Anxiety or Agitation Ondansetron (Ondansetron) 4 Mg Tablet 4 MG PO PRN For Nausea Objective Findings Exam Vital Sign - Last Date Time Temp Pulse Resp B/P Pulse Ox O2 Delivery O2 Flow Rate FiO2 08/20/16 12:59 36.9 83 14 124/73 08/20/16 11:53 94 Nasal Cannula 2.00 Intake and Output 08/19/16 08/19/16 08/20/16 Cumulative From/Thru 15:00 23:00 07:00 08/19/16 20:30 - 08/20/16 06:18 Intake Total 975 ml 975 ml Output Total 450 ml 2975 ml 3425 ml Balance -450 ml -2000 ml -2450 ml Intake Oral 50 ml 50 ml IV Total 625 ml 625 ml Packed Cells 300 ml 300 ml Output Urine Total 450 ml 2975 ml 3425 ml Objective Heavyset man lying in bed, drowsy but arousable. Very pale. Vital signs noted. Skin warm and dry. Head and neck exam without acute changes. Lungs clear anterolaterally, heart sounds regular, abdomen is obese soft without peritoneal signs. Extremities with diffuse puffiness. Neurologic nonfocal. Lab/Diagnostics Lab and Imaging results reviewed in detail in EMR. Time spent Total time 55 minutes; >50% face to face with patient and family, providing counselling regarding plans and recommendations, and in care coordination with his medical teams. Thomas Naqvi MD Aug 20, 2016 13:41
--- NOTE | 2016-08-20 14:00 | PCM.HPANE ---
Patient Data Surgeon Admitting Provider:Honey Armenta DO Attending Provider:Honey Armenta DO Primary Care Physician:Fausto Salvador MD Other Provider: Reason for Visit Port Infection,Fever,Severe Anemia Ht/WT & BMI Height (Feet): 6 Height (Inches): 1.00 Weight (Kilograms): 138.300 Body Mass Index 40.41 Allergies Coded Allergies: fentanyl (Verified Adverse Reaction, Intermediate, Delirium, 08/20/16) Past Anesthesia History Anesthesia History: Denies:: Abnormal Airway, Anesthesia Reactions, Difficult Intubation Diabetes History Hx Diabetes?: Yes Type of Diabetes: Type I Glycemic Control: Insulin Dependent Current Bedside Blood Glucose: 104 MRSA MRSA: No Medications Hypertension Medication: No Home Meds Incl Beta April: No Active Scripts Hydromorphone 8 Mg Tablet8 Mg PO Q3H PRN Pain #60 TABLET Ref 0 Prov:Daniel Benson MD 07/23/16 Aspirin 81 Mg Ekmhwd67 Mg PO DAILY #60 Prov:Daniel Benson MD 07/23/16 Levothyroxine 50 Mcg Ncpljp11 Mcg PO DAILYAC 14 Days Prov:Katherine Martinez DO 07/19/16 Oxybutynin Chloride 5 Mg Tablet5 Mg PO TID #90 TABLET Prov:Luci Brown DO 06/27/16 Reported Medications Furosemide 40 Mg Fqzmrf19 Mg PO DAILY 08/20/16 Potassium Chloride ER 20 Meq Tablet.er20 Meq PO DAILY Ref 0 TAKE WITH FOOD 08/20/16 Ondansetron 4 Mg Tablet4 Mg PO PRN For Nausea 08/20/16 Insulin Detemir (Levemir Flextouch)100 Unit/1 Ml Insuln.pen65 Unit SQ DAILY 08/20/16 Lorazepam 0.5 Mg Tablet0.5 Mg PO TID PRN For Anxiety or Agitation Ref 0 08/20/16 Alprazolam 1 Mg Tablet1 Mg PO HS PRN For Anxiety Ref 0 08/20/16 Sertraline HCl (Zoloft)20 Mg/1 Ml Oral.qnli964 Mg PO DAILY #1 BOTTLE Ref 0 08/20/16 Methadone 5 Mg Eucnti72 Mg PO Q6H 08/20/16 Discontinued Reported Medications Insulin Detemir (Levemir Flextouch)100 Unit/1 Ml Insuln.gto409 Unit SQ 06/10/16 Gabapentin 300 Mg Kngpvqw532 Mg PO DAILY PRN For Pain Ref 0 06/10/16 Discontinued Scripts Gabapentin (Neurontin)300 Mg Drkfvyq615 Mg PO TID #30 CAPSULE Prov:Daniel Benson MD 07/23/16 [Fentanyl] (Duragesic 25 mCg/Hr Patch)1 PATCH PATCH No Conflict Check25 Patch TOPICAL Q3D #2 Prov:Daniel Benson MD 07/23/16 Methadone 5 Mg Vyilsi56 Mg PO Q8H #60 TABLET Prov:Daniel Benson MD 07/23/16 Sodium Chloride 1 Gm Tablet1 Gm PO TID #30 TABLET Prov:Daniel eBnson MD 07/23/16 Sertraline HCl (Sertraline)50 Mg Uicrvv66 Mg PO DAILY #30 TABLET Prov:Daniel Benson MD 07/23/16 Trazodone 50 Mg Pluwdh16 Mg PO HS PRN Insomnia 14 Days Prov:Katherine Martinez DO 07/19/16 [Fentanyl] (Duragesic 50 mCg/Hr Patch)1 PATCH PATCH No Conflict Check1 Patch TOPICAL Q3D 14 Days Prov:Katherine Martinez DO 07/19/16 Ferrous Sulfate (Feosol)325 Mg Tefevb602 Mg PO BIDWM 14 Days Prov:Katherine Martinez DO 07/19/16 diphenhydrAMINE HCl (Benadryl)25 Mg Lwskucx90 Mg PO Q6H PRN For Itching #30 CAPSULE Prov:Luci Brown DO 06/27/16 Lorazepam (Ativan)1 Mg Tablet1 Mg PO TID PRN For Anxiety or Agitation #20 TABLET Prov:Luci Brown DO 06/27/16 Sennosides (Senna)8.6 Mg Tablet8.6 Mg PO BID #60 TABLET Prov:Luci Brown DO 06/27/16 History History of ENT Problems?: No HEENT History: Denies:: Abnormal Airway Cataracts Difficult Intubation Dysphagia Glaucoma Hearing Problem Sinus Problem TMJ Denture Type: None Teeth Condition: Within Normal Limits Hx of Heart Problems?: No Cardiovascular History: Positive for:: Edema (currently ) Denies:: AICD Abdominal Aortic Aneurism Atrial Fibrillation Cardiac Surgery Chest Pain Congestive Heart Failure Coronary Artery Disease Heart Murmur Hypertension Irregular Heartbeat Pacemaker Peripheral Vascular Rheumatic Fever Thrombophlebitis Valvular Heart Disease Hx of Respiratory Problem?: No Respiratory History: Positive for:: Pneumonia Denies:: Asthma COPD Chest Surgery Cough Dyspnea Emphysema Hemoptysis Oxygen Administration Pulmonary Embolism Tuberculosis Use of C-PAP Machine Use of Inhalers / NEBS Hx Neurologic Problems?: Yes Neurological History: Positive for:: Headaches (migraines from high pitched noise) Denies:: Alzheimer's Disease CVA Dementia Dizziness Parkinson's Disease Seizures Hx of GI Problems?: Yes Gastrointestinal History: Denies:: Cirrhosis Diverticulitis Gall Bladder Disease Gastroesphageal Reflux Gastrointestinal Bleeding Heartburn Hepatitis Hiatal Hernia Liver Disease Rectal Bleeding Hx of Problems?: No Genitourinary History: Denies:: HX of Hemodialysis Kidney Stones Urinary Tract Infection HX of Peritoneal Dialysis: No Male Hx: Denies:: Prostate Problems Scrotal Mass Testicular Surgery Hx Musculoskeletal Problems?: No Hx of Psycho/Social Problems?: Yes Psycho Social History: Positive for:: Anxiety (newly on lorazepam ) Denies:: Bipolar Disorder Hx Depression Suicide Attempt Hx Surgeries?: Yes (shoulder surgery 11/28, cystoscopy 08/01/15) Hx Any Other Health Problems?: Yes Other History: Positive for:: Cancer (bladder) Hospitalization Thyroid Disease (hypothyroid) History Blood Transfusions: Positive for:: Blood Transfusions Denies:: Accept Blood Products? Blood Transfuse Reaction Hx Diabetes: YesBedside Blood Glucose: 104 Hx Alcohol Use: Yes (no current use)Hx Substance Use: No Smoking Status: Never Smoker Have You Smoked inLast 12 mo: No Stop/Bang Treated for Sleep Apnea?: No Do You Have a CPAP Machine?: No S-Snoring: Do You Snore Loudly: No T-Tired: feel tired, fatigued: Yes O-Obsered: Observed not breath: No P-Blood Pressure: treated: No B- Body Mass Index > 35 kg/m2: Yes A- Age over 50: Yes N- Neck Large Circumference: Yes G- Gender Male: Yes JUANPABLO Total Score: 5 JUANPABLO Risk Assessment: High Risk, =/>3 Yes JUANPABLO Category 4 OutPt Procedure: Yes Risk Assessment Category Category 1A: Patient has history of documented sleep apnea, and HAS NOT received any narcotic, sedative or anesthesia administration during this stay. Category 1B: Patient has history of documented sleep apnea, and HAS received any narcotic , sedative or anesthesia administration during this stay Category 2: Patient has SUSPECTED Obstructive Sleep Apnea, and HAS received any narcotic , sedative or anesthesia administration during this stay. Category 3: Patient has SUSPECTED Obstructive Sleep Apnea and HAS NOT received narcotic, sedative or anesthesia administration during this stay. Category 4: Outpatient in Procedural Areas with known sleep apnea or who screen positive for High Risk via the STOP/BANG questionnaire. Exam Exam Vital Signs Vital Signs Date Time Temp Pulse Resp B/P Pulse Ox O2 Delivery O2 Flow Rate FiO2 08/20/16 12:59 36.9 83 14 124/73 08/20/16 11:53 36.7 87 18 121/75 94 Nasal Cannula 2.00 08/20/16 10:35 36.6 81 14 117/71 08/20/16 10:19 36.8 88 14 119/71 08/20/16 09:40 36.7 69 16 112/62 08/20/16 09:38 36.7 69 16 111/62 94 Room Air 08/20/16 09:14 36.6 18 123/66 91 Nasal Cannula 2.00 08/20/16 08:00 91 08/20/16 06:47 37.0 90 18 108/59 08/20/16 06:03 36.9 90 18 104/59 94 Nasal Cannula 2.00 General Appearance: Alert, Oriented X3, Cooperative, No Acute Distress HEENT/AIRWAY: MP 2 Lungs: Clear to Auscultation, Normal Air Movement Heart: Exam Unremarkable, Regular Rate/Rhythm, No Murmurs/Rubs/Gallops Meds/Labs/Diagnostics Admission Meds Current Medications Hydromorphone HCl (Dilaudid) 8 mg ONCE ONCE PO Last administered on 08/19/16 22:17; Start 08/19/16 at 22:15; Stop 08/19/16 at 22:16; Status DC Furosemide (Lasix Inj) 80 mg ONCE ONCE IVPUSH Last administered on 08/19/16 22 :52; Start 08/19/16 at 22:15; Stop 08/19/16 at 22:16; Status DC Diphenhydramine HCl (Benadryl Inj) 50 mg ONCE ONCE IVPUSH Last administered on 08/20/16 01:30; Start 08/20/16 at 01:30; Stop 08/20/16 at 01:31; Status DC Hydromorphone HCl 8 mg 8 mg ONCE ONCE PO Last administered on 08/20/16 01:30; Start 08/20/16 at 01:30; Stop 08/20/16 at 01:31; Status DC Sodium Chloride 1,000 ml @ 80 mls/hr [id number] IV Last administered on 08/20/16 05:59; Start 08/20/16 at 02:15 Piperacillin Sod/ Tazobactam Sod/ Dextrose/Water (Zosyn 3.375 Gm Inj/D5W Minibag Plus) 50 ml @ 12.5 mls/hr Q8H IV Last administered on 08/20/16 12:01; Start 08/20/16 at 03:30 Pharmacy Consult 1 ea 1 ea DAILY XX Last administered on 08/20/16 08:30; Start 08/20/16 at 02:55 Vancomycin HCl 2000 mg/Sodium Chloride 500 ml @ 250 mls/hr OT ONCE IV Last administered on 08/20/16 03:42; Start 08/20/16 at 03:15; Stop 08/20/16 at 05:15; Status DC Vancomycin HCl/ Sodium Chloride (Vancocin Inj/ Normal Saline) 250 ml @ 166.667 mls/hr Q8H IV Last administered on 08/20/16 13:01; Start 08/20/16 at 12:00 Bedside Blood Glucose: 104 Labs Test 08/19/16 21:10 08/19/16 21:40 08/20/16 04:30 08/20/16 13:30 Lactic Acid Level 1.1mmol/L (0.4-2.0) Magnesium Level 1.9mg/dL (1.6-2.6) Pro-B-Type Natriuretic Peptide 296.4pg/mL (0-121) Urine Color Bloody (YELLOW) Urine Appearance Cloudy (CLEAR,HAZY) Urine pH 7.0 (5.0-8.0) Urine Specific [place] 1.020 (1.003-1.035) Urine Protein >300mg/dL (NEG,TRACE) Urine Glucose (UA) Negativemg/dL (NEGATIVE) Urine Ketones Negativemg/dL (NEGATIVE) Urine Occult Blood Large (NEGATIVE) Urine Nitrite Positive (NEGATIVE) Urine Bilirubin Negative (NEGATIVE) Urine Urobilinogen Normalmg/dL (NORMAL) Urine Leukocyte Esterase Small (NEGATIVE) Urine RBC Packed/hpf (0-2) Urine WBC 0-5/hpf (0-5) Urine Epithelial Cells 0/hpf (NONE-MOD) Urine Crystals None seen (NONE SEEN) Urine Bacteria Few/hpf (NONE-FEW) Urine Hyaline Casts None/lpf (NONE) Urine Granular Casts None seen (NONE SEEN) Urine Waxy Casts None seen (NONE SEEN) Urine Red Blood Cell Casts None seen (NONE SEEN) Urine White Blood Cell Casts None seen (NONE SEEN) Urine Mucus None seen (None Seen) Urine Trichomonas None seen (NONE SEEN) Urine Yeast None (NONE SEEN) Urinalysis Comment None Urine Culture Reflexed Indicated White Blood Count 6.6th/mm3 (3.8-10.1) Red Blood Count 2.31mil/mm3 (4.40-5.80) Mean Corpuscular Volume 90.0fL (81-100) Mean Corpuscular Hemoglobin 29.0pg (27.0-35.0) Mean Corpuscular Hemoglobin Concent 32.2% (32.0-37.0) Red Cell Distribution Width 16.1% (12.3-15.4) Platelet Count 354bil/L (150-400) Neutrophils (%) (Auto) 60% (40-74) Lymphocytes (%) (Auto) 9% (14-46) Monocytes (%) (Auto) 13% (4-12) Eosinophils (%) (Auto) 1% (0-5) Basophils (%) (Auto) 0% (0-3) Band Neutrophils % 13% (1-5) Metamyelocytes % 3% (0-0) Myelocytes % 1% (0-0) Sodium Level 134mEq/L (134-144) Potassium Level 4.6mEq/L (3.5-5.2) Chloride Level 97mEq/L (97-108) Carbon Dioxide Level 27mmol/L (18-29) Blood Urea Nitrogen 16mg/dL (6-24) Creatinine 0.64mg/dL (0.76-1.27) Estimat Glomerular Filtration Rate 141mL/min (>59) Glucose Level 85mg/dL (60-99) Calcium Level 8.3mg/dL (8.5-10.1) Total Bilirubin 0.4mg/dL (0.0-1.2) Aspartate Amino Transf (AST/SGOT) 29U/L (0-50) Alanine Aminotransferase (ALT/SGPT) 12U/L (0-44) Alkaline Phosphatase 280U/L (25-150) Troponin T 0.045ug/L (0.0-0.011) Total Protein 5.3g/dL (6.4-8.4) Albumin 2.7g/dL (3.4-5.0) Procalcitonin 0.24ng/mL (0.00-0.08) Plan Impression Patient chart reviewed, patient interviewed and anesthestic plan with risks, benefits, and alternatives discussed, and informed consent obtained. ASA Physical Status: ASA3 Severe Disease (BMI 40) Anesthetic Plan: MAC Bene/Risks/Altern/Consents: Yes HP Complete Prior to Induction: Yes Monico Castro MD Aug 20, 2016 14:00
[2016-08-20] MEDS ORDERED: Lactated Ringer's 1,000 ML IV SCH (14:02)
[2016-08-20] MEDS ORDERED: Lactated Ringer's 500 ML IV PRN (14:02)
[2016-08-20] MEDS ORDERED: HYDROmorphone 1 mg/mL Inj IVPUSH PRN (14:05)
[2016-08-20] MEDS ORDERED: EPHEDrine Sulfate 50 mg/mL Inj IVPUSH PRN (14:05)
[2016-08-20] MEDS ORDERED: Phenylephrine 10,000 mCg/mL Inj IVPUSH PRN (14:05)
[2016-08-20] MEDS ORDERED: Dexamethasone 4 mg/mL Inj IVPUSH PRN (14:05)
--- NOTE | 2016-08-20 14:28 | CONS ---
[address] [address] CONSULTATION REPORT PATIENT: DIANA CROWELL : 1965 MR#: [id number] ADMIT: 08/19/2016 JOB ID: [id number] DATE OF SERVICE: 08/20/2016 GENERAL SURGERY CONSULTATION: Asked by the hospitalist service and Dr. Cameron to see this patient for removal of Port-A-Cath. HISTORY OF PRESENT ILLNESS: Unfortunate man with bladder cancer that will likely need resection who presents with both signs of infection and anemia. He has a right-sided Port-A-Cath that is clearly eroding through the skin with overlying skin breakdown and surrounding cellulitis. General examination is limited to review of his vital signs that are within normal limits, but also in observation that he is quite pale consistent with anemia. ADMISSION LABORATORIES: Included a hemoglobin of 5.6 and a hematocrit at 7.6. His white count was 7.4 with 10% bands yesterday and continues to be 6.6 with 17% immature forms. IMPRESSION AND PLAN: He is currently receiving a blood transfusion. I think I would like to see him complete that prior to removing his Port-A-Cath. He is essentially n.p.o. and I have talked to him about either doing it at the bedside or in the OR and the pros and cons of the two approaches. I will return and see him this afternoon and review whether he wants to have this done at the bedside or would prefer to have it done in the operating room.
[2016-08-20] MEDS ORDERED: Lactated Ringer's 1,000 ML IV ONE (14:48)
--- NOTE | 2016-08-20 16:16 | PCM.HPAN.P ---
Patient Data Surgeon: Admitting Provider:Honey Armenta DO Attending Provider:Honey Armenta DO Primary Care Physician:Fausto Salvador MD Other Provider: Reason for Visit: Port Infection,Fever,Severe Anemia Ht/WT & BMI Height (Feet): 6 Height (Inches): 1.00 Weight (Kilograms): 138.300 Body Mass Index 40.41 Allergies Allergies: Coded Allergies: fentanyl (Verified Adverse Reaction, Intermediate, Delirium, 08/20/16) Past Anesthesia History Anesthesia History: Denies:: Abnormal Airway, Anesthesia Reactions, Difficult Intubation MRSA MRSA: No Medications Hx Diabetes: Yes Bedside Blood Glucose: 111 Home Meds Active Scripts Hydromorphone 8 Mg Tablet8 Mg PO Q3H PRN Pain #60 TABLET Ref 0 Prov:Daniel Benson MD 07/23/16 Aspirin 81 Mg Tucdhe04 Mg PO DAILY #60 Prov:Daniel Benson MD 07/23/16 Levothyroxine 50 Mcg Ilvqgl04 Mcg PO DAILYAC 14 Days Prov:Katherine Martinez DO 07/19/16 Oxybutynin Chloride 5 Mg Tablet5 Mg PO TID #90 TABLET Prov:Luci Brown DO 06/27/16 Reported Medications Furosemide 40 Mg Gsgolc28 Mg PO DAILY 08/20/16 Potassium Chloride ER 20 Meq Tablet.er20 Meq PO DAILY Ref 0 TAKE WITH FOOD 08/20/16 Ondansetron 4 Mg Tablet4 Mg PO PRN For Nausea 08/20/16 Insulin Detemir (Levemir Flextouch)100 Unit/1 Ml Insuln.pen65 Unit SQ DAILY 08/20/16 Lorazepam 0.5 Mg Tablet0.5 Mg PO TID PRN For Anxiety or Agitation Ref 0 08/20/16 Alprazolam 1 Mg Tablet1 Mg PO HS PRN For Anxiety Ref 0 08/20/16 Sertraline HCl (Zoloft)20 Mg/1 Ml Oral.vexc861 Mg PO DAILY #1 BOTTLE Ref 0 08/20/16 Methadone 5 Mg Inobid93 Mg PO Q6H 08/20/16 Discontinued Reported Medications Insulin Detemir (Levemir Flextouch)100 Unit/1 Ml Insuln.ery005 Unit SQ 06/10/16 Gabapentin 300 Mg Fqeifyt973 Mg PO DAILY PRN For Pain Ref 0 06/10/16 Discontinued Scripts Gabapentin (Neurontin)300 Mg Fmrixlu540 Mg PO TID #30 CAPSULE Prov:Daniel Benson MD 07/23/16 [Fentanyl] (Duragesic 25 mCg/Hr Patch)1 PATCH PATCH No Conflict Check25 Patch TOPICAL Q3D #2 Prov:Daniel Benson MD 07/23/16 Methadone 5 Mg Razmef02 Mg PO Q8H #60 TABLET Prov:Daniel Benson MD 07/23/16 Sodium Chloride 1 Gm Tablet1 Gm PO TID #30 TABLET Prov:Daniel Benson MD 07/23/16 Sertraline HCl (Sertraline)50 Mg Msdzkk90 Mg PO DAILY #30 TABLET Prov:Daniel Benson MD 07/23/16 Trazodone 50 Mg Izpmye15 Mg PO HS PRN Insomnia 14 Days Prov:Katherine Martinez DO 07/19/16 [Fentanyl] (Duragesic 50 mCg/Hr Patch)1 PATCH PATCH No Conflict Check1 Patch TOPICAL Q3D 14 Days Prov:Katherine Martinez DO 07/19/16 Ferrous Sulfate (Feosol)325 Mg Oxhzfn987 Mg PO BIDWM 14 Days Prov:Katherine Martinez DO 07/19/16 diphenhydrAMINE HCl (Benadryl)25 Mg Gvfebpe26 Mg PO Q6H PRN For Itching #30 CAPSULE Prov:Luci Brown DO 06/27/16 Lorazepam (Ativan)1 Mg Tablet1 Mg PO TID PRN For Anxiety or Agitation #20 TABLET Prov:Luci Brown L DO 06/27/16 Sennosides (Senna)8.6 Mg Tablet8.6 Mg PO BID #60 TABLET Prov:Luci Brown L DO 06/27/16 History HEENT History HEENT History: Denies:: Abnormal Airway, Difficult Intubation, Hearing Problem Cardiac History Cardiovascular History: Denies:: Cardiac Surgery, Heart Murmur, Irregular Heartbeat, Rheumatic Fever Respiratory Respiratory History: Denies:: Asthma Gastrointestinal History History of GI Problems?: No Genitourinary History History of Problems?: Yes (bladder cancer ) Female/Male History Reproductive Medical History: No Musculoskeletal History History Musculoskeletal Prob.: Yes (bone pain) Neurological History History Neurological Problems?: Yes (neuropathic pain?) Past Surgical History History of Previous Surgeries?: Yes (shoulder surgery 11/28, cystoscopy 08/01/15) Past Social History Hx Alcohol Use: Yes (no current use) Hx Substance Use: No Hx Tobacco Use: No Exam Exam Vital Signs Date Time Temp Pulse Resp B/P Pulse Ox O2 Delivery O2 Flow Rate FiO2 08/20/16 16:00 82 15 116/69 96 Nasal Cannula 3 08/20/16 15:45 80 14 126/67 95 Nasal Cannula 3 08/20/16 15:40 81 19 125/69 99 Simple Mask 10 08/20/16 15:35 84 15 112/64 99 Simple Mask 10 08/20/16 15:30 36.8 80 17 109/62 99 Simple Mask 10 08/20/16 12:59 36.9 83 14 124/73 08/20/16 11:53 36.7 87 18 121/75 94 Nasal Cannula 2.00 08/20/16 10:35 36.6 81 14 117/71 08/20/16 10:19 36.8 88 14 119/71 08/20/16 09:40 36.7 69 16 112/62 08/20/16 09:38 36.7 69 16 111/62 94 Room Air 08/20/16 09:14 36.6 18 123/66 91 Nasal Cannula 2.00 General Appearance: Moderate Distress HEENT/AIRWAY: MP 2 Lungs: Clear to Auscultation Heart: Exam Unremarkable Current Bedside Glucose: 111 Admit Medications/Labs Current Medications Hydromorphone HCl (Dilaudid) 8 mg ONCE ONCE PO Last administered on 08/19/16 22:17; Start 08/19/16 at 22:15; Stop 08/19/16 at 22:16; Status DC Furosemide (Lasix Inj) 80 mg ONCE ONCE IVPUSH Last administered on 08/19/16 22 :52; Start 08/19/16 at 22:15; Stop 08/19/16 at 22:16; Status DC Diphenhydramine HCl (Benadryl Inj) 50 mg ONCE ONCE IVPUSH Last administered on 08/20/16 01:30; Start 08/20/16 at 01:30; Stop 08/20/16 at 01:31; Status DC Hydromorphone HCl 8 mg 8 mg ONCE ONCE PO Last administered on 08/20/16 01:30; Start 08/20/16 at 01:30; Stop 08/20/16 at 01:31; Status DC Sodium Chloride 1,000 ml @ 80 mls/hr [id number] IV Last administered on 08/20/16 05:59; Start 08/20/16 at 02:15 Piperacillin Sod/ Tazobactam Sod/ Dextrose/Water (Zosyn 3.375 Gm Inj/D5W Minibag Plus) 50 ml @ 12.5 mls/hr Q8H IV Last administered on 08/20/16 12:01; Start 08/20/16 at 03:30 Pharmacy Consult 1 ea 1 ea DAILY XX Last administered on 08/20/16 08:30; Start 08/20/16 at 02:55 Vancomycin HCl 2000 mg/Sodium Chloride 500 ml @ 250 mls/hr OT ONCE IV Last administered on 08/20/16 03:42; Start 08/20/16 at 03:15; Stop 08/20/16 at 05:15; Status DC Vancomycin HCl 1250 mg/Sodium Chloride 250 ml @ 166.667 mls/hr Q8H IV Last administered on 08/20/16 13:01; Start 08/20/16 at 12:00 Lactated Ringer's (Lr) 1,000 ml @ ud STK-MED ONCE IV Last administered on 14:48; Start 08/20/16 at 14:48; Stop 08/20/16 at 15:09; Status DC Test 08/19/16 21:10 08/19/16 21:40 08/20/16 04:30 08/20/16 13:30 Lactic Acid Level 1.1mmol/L (0.4-2.0) Magnesium Level 1.9mg/dL (1.6-2.6) Pro-B-Type Natriuretic Peptide 296.4pg/mL (0-121) Urine Color Bloody (YELLOW) Urine Appearance Cloudy (CLEAR,HAZY) Urine pH 7.0 (5.0-8.0) Urine Specific [place] 1.020 (1.003-1.035) Urine Protein >300mg/dL (NEG,TRACE) Urine Glucose (UA) Negativemg/dL (NEGATIVE) Urine Ketones Negativemg/dL (NEGATIVE) Urine Occult Blood Large (NEGATIVE) Urine Nitrite Positive (NEGATIVE) Urine Bilirubin Negative (NEGATIVE) Urine Urobilinogen Normalmg/dL (NORMAL) Urine Leukocyte Esterase Small (NEGATIVE) Urine RBC Packed/hpf (0-2) Urine WBC 0-5/hpf (0-5) Urine Epithelial Cells 0/hpf (NONE-MOD) Urine Crystals None seen (NONE SEEN) Urine Bacteria Few/hpf (NONE-FEW) Urine Hyaline Casts None/lpf (NONE) Urine Granular Casts None seen (NONE SEEN) Urine Waxy Casts None seen (NONE SEEN) Urine Red Blood Cell Casts None seen (NONE SEEN) Urine White Blood Cell Casts None seen (NONE SEEN) Urine Mucus None seen (None Seen) Urine Trichomonas None seen (NONE SEEN) Urine Yeast None (NONE SEEN) Urinalysis Comment None Urine Culture Reflexed Indicated White Blood Count 6.6th/mm3 (3.8-10.1) Red Blood Count 2.31mil/mm3 (4.40-5.80) Mean Corpuscular Volume 90.0fL (81-100) Mean Corpuscular Hemoglobin 29.0pg (27.0-35.0) Mean Corpuscular Hemoglobin Concent 32.2% (32.0-37.0) Red Cell Distribution Width 16.1% (12.3-15.4) Platelet Count 354bil/L (150-400) Neutrophils (%) (Auto) 60% (40-74) Lymphocytes (%) (Auto) 9% (14-46) Monocytes (%) (Auto) 13% (4-12) Eosinophils (%) (Auto) 1% (0-5) Basophils (%) (Auto) 0% (0-3) Band Neutrophils % 13% (1-5) Metamyelocytes % 3% (0-0) Myelocytes % 1% (0-0) Sodium Level 134mEq/L (134-144) Potassium Level 4.6mEq/L (3.5-5.2) Chloride Level 97mEq/L (97-108) Carbon Dioxide Level 27mmol/L (18-29) Blood Urea Nitrogen 16mg/dL (6-24) Creatinine 0.64mg/dL (0.76-1.27) Estimat Glomerular Filtration Rate 141mL/min (>59) Glucose Level 85mg/dL (60-99) Calcium Level 8.3mg/dL (8.5-10.1) Total Bilirubin 0.4mg/dL (0.0-1.2) Aspartate Amino Transf (AST/SGOT) 29U/L (0-50) Alanine Aminotransferase (ALT/SGPT) 12U/L (0-44) Alkaline Phosphatase 280U/L (25-150) Troponin T 0.045ug/L (0.0-0.011) Total Protein 5.3g/dL (6.4-8.4) Albumin 2.7g/dL (3.4-5.0) Procalcitonin 0.24ng/mL (0.00-0.08) Hemoglobin 8.8g/dL (13.8-17.2) Hematocrit 27.1% (41.0-50.0) Plan Impression Patient chart reviewed, patient interviewed and anesthestic plan with risks, benefits, and alternatives discussed, and informed consent obtained. ASA Physical Status: ASA3 Severe Disease (bladder cancer, infected port a cath) Anesthetic Plan: GA Bene/Risks/Altern/Consents: Yes HP Complete Prior to Induction: Yes Monico Castro MD Aug 20, 2016 16:16
--- NOTE | 2016-08-20 16:17 | PCM.ANEP1 ---
Post Anesthesia PACU Phase 1 Assessment Vital Signs Vital Signs Date Time Temp Pulse Resp B/P Pulse Ox O2 Delivery O2 Flow Rate FiO2 08/20/16 16:00 82 15 116/69 96 Nasal Cannula 3 08/20/16 15:45 80 14 126/67 95 Nasal Cannula 3 08/20/16 15:40 81 19 125/69 99 Simple Mask 10 08/20/16 15:35 84 15 112/64 99 Simple Mask 10 08/20/16 15:30 36.8 80 17 109/62 99 Simple Mask 10 08/20/16 12:59 36.9 83 14 124/73 08/20/16 11:53 36.7 87 18 121/75 94 Nasal Cannula 2.00 08/20/16 10:35 36.6 81 14 117/71 08/20/16 10:19 36.8 88 14 119/71 08/20/16 09:40 36.7 69 16 112/62 08/20/16 09:38 36.7 69 16 111/62 94 Room Air 08/20/16 09:14 36.6 18 123/66 91 Nasal Cannula 2.00 Anesthetic Administered: GA Level of Alertness: Sleepy, easy to arouse FRITZ's with Equal Strength: Yes Pain: Yes Pain Scale Score: 6 Nausea or Vomiting: No CV Function & Hydration Stable: Yes Airway Device: Oralpharangeal Airway Oxygen Delivery: Simple Mask Lungs: Clear to Auscultation Dermatome Level: Full Sensation PACU Phase 2 Assessment Complications: No Follow up Care: No Patient Instructions Provided: N/A Monico Castro MD Aug 20, 2016 16:17
--- NOTE | 2016-08-20 17:10 | PCM.PNMED ---
Subjective Date of Service Aug 20, 2016 Subjective 51yoM with history of high grade papillary urothelial carcinoma s/p incomplete TURBT, DM2, and hyperlipidemia, that presented to [facility] with recurrent hematuria , increased fatigue and mild fevers. This morning, he continues to have diffuse pain. He also has some dyspnea but no chest pain. He does have abdominal discomfort. Exam Vital Signs Vital Sign - Last Date Time Temp Pulse Resp B/P Pulse Ox O2 Delivery O2 Flow Rate FiO2 08/20/16 16:26 36.6 78 16 122/73 91 Nasal Cannula 2.00 Intake and Output 08/19/16 08/19/16 08/20/16 Cumulative From/Thru 15:00 23:00 07:00 08/19/16 20:30 - 08/20/16 06:18 Intake Total 975 ml 975 ml Output Total 450 ml 2975 ml 3425 ml Balance -450 ml -2000 ml -2450 ml Intake Oral 50 ml 50 ml IV Total 625 ml 625 ml Packed Cells 300 ml 300 ml Output Urine Total 450 ml 2975 ml 3425 ml Exam General: Alert, Oriented X3, Cooperative, No acute Distress, obvious fatigue Eyes: PERRLA, Scleral Anicteric Mouth: Mouth Normal, Mucous Membranes Moist/[place] Neck: Supple Chest & Lungs: Clear to auscultation & percussion, No adventitious breath sounds, no crackles, no wheeze, purulent drainage from right port site Cardiovascular: Normal S1, Normal S2, No Murmurs/Rubs/Gallops, Regular Rate/ Rhythm, (No JVD, no peripheral edema) Pulses: Dorsalis Pedis (present and equal) Abdomen: Soft, tender lower quadrants and suprapubic, no rebound, Non-distended , hypoactive bowel tones. Musculoskeletal: Unremarkable. Normal range of motion, no swollen or erythematous joints Extremities: 1-2+ pitting edema, no cyanosis, no clubbing, excoriations bilateral with purulent drainage Skin: Pale. No rashes. Warm and dry, erythematous areas bilateral lower legs Neurological: Grossly neurologically intact, Normal Speech, Sensation Intact IVs and Medications Medications Reviewed: Medications were reviewed in detail Lab and Diagnostics Result Diagram: 08/20/16 1330 08/20/16 0430 X-Rays, CTs and MRIs PROCEDURE: X-RAY CHEST ONE VIEW, PORTABLE IMPRESSION: Left basilar atelectasis versus pneumonia. Please correlate with clinical data. Approved by: Lizzy Mays MD, PhD on 08/19/2016 at 21:45 Assessment & Plan 51yoM with history of high grade papillary urothelial carcinoma s/p incomplete TURBT, DM2, and hyperlipidemia, that presented to [facility] with recurrent hematuria , increased fatigue and mild fevers Acute blood loss anemia, acute, present on admission -secondary to hematuria, onset 6/7 at 1800. Likely secondary to papillary urothelial cancer as below -s/p 4 units pRBCs -keep 3 units in house at all times -closely monitor H&H, q4hr -urology consulted and following. Their time and recommendations are appreciated. Pt may need to be transferred to for surgical intervention Port infection, acute, present on admission -purulent discharge from port site -f/u blood cx -piperacillin-tazobactam, vancomycin started in ED, continue, pharmacy to dose vancomycin -infectious disease consulted and following. Their time and recommendations are appreciated. Culture obtained from site. -oncology is aware of patient's hospitalization. -Surgery consulted and following. Their time and recommendations are appreciated. Planned port-a-cath removal today in the OR. Cellulitis bilateral, acute, present on admission -worsening lower extremity abrasions with purulent drainage, increased erythema and tenderness -continue piperacillin-tazobactam, vancomycin Leukocytosis, acute, present on admission, resolved. -secondary to above infections -treat as above Hyponatremia, acute, present on admission, resolved. -mild -continue to monitor Elevated troponin, acute, present on admission -likely demand ischemia from acute blood loss and active infections -trend troponin -holding ASA given acute blood loss anemia Pain management, chronic -managed at home with methadone and hydromorphone, will continue, reviewed medication list from home - Palliative care consulted and following. Their time and recommendations are appreciated. Diabetes mellitus type II, insulin dependent -NPO at this time -regular insulin low correction sliding scale Hypothyroidism, chronic, present on admission -continue levothyroxine Papillary urothelial carcinoma, chronic -finished chemotherapy 08/05 -Schistosoma antibody ordered -management as per oncology -urology consulted as above and possible transfer to - Palliative care consulted and following. Their time and recommendations are appreciated. VTE Prophylaxis: SCDs Resuscitation Status: CPR: Attempt Resuscitation Attending Statement The patient was seen and examined together with Dr. Deleon on 08/20/2016 and I have added additional information to the note above. Tiara Deleon DO Aug 20, 2016 17:10 Luci Brown Aug 23, 2016 18:26
--- NOTE | 2016-08-20 18:15 | NUR ---
Bleeding/anemia/pain Patient bleeding from bladder r/t bladder CA. Indwelling thakkar draining dark red urine. Patient received 4 units PRBCs for low H/H. H/H is stabilized at 8.8/27.1. PRN oral Dilaudid given for bladder pain with good effect.
[2016-08-20] MEDS: HYDROmorphone 1 mg/mL Inj IVPUSH PRN (19:52)
[2016-08-21] VITALS (10 sets, daily range): BP systolic 112–142; BP diastolic 68–79; PULSE 77–97; RESP 16–22; O2SAT 91–96
[2016-08-21] MEDS: HYDROmorphone 1 mg/mL Inj IVPUSH PRN ×8 (00:18→23:57)
--- NOTE | 2016-08-21 00:40 | OP ---
[address] [address] OPERATIVE REPORT PATIENT: DIANA CROWELL : 1965 MR#: [id number] ADMIT: 08/19/2016 JOB ID: [id number] DATE OF SURGERY: 08/20/2016 PREOPERATIVE DIAGNOSIS(ES): Infected Port-A-Cath. POSTOPERATIVE DIAGNOSIS(ES): Infected Port-A-Cath. PROCEDURE: Removal of infected Port-A-Cath. SURGEON: Thomas Murdock MD. WOOD FINISHER APPRENTICE: Inge torres DO. INDICATION: A 51-year-old male with infected Port-A-Cath. FINDINGS: Catheter removed, tip sent for culture. There appeared to be an adherent clot in the tip of the catheter. PROCEDURE: The patient was brought to the operating room. SCOAP protocol was followed. He was on therapeutic antibiotics. LMA anesthetic was administered. The right chest was prepped and draped in sterile fashion. Surgical time-out was performed. SCOAP protocol was followed. We cut down through the skin and found an area that the skin had broken down over the port. We this off, identified where the port tubing was, and delivered the port tubing from the vein in its entirety. We cut the tip off and sent this for Gram stain and culture. There was what appeared to be an adherent old clot in the tubing. We now delivered the port out of the fibrous capsule, including removing the two sutures that we could find that were securing the port on the chest wall. We did not strip the capsule off as the tissue was quite inflamed and tended to bleed. We held pressure on the venipuncture site until hemostasis was good. Washed the wound out well and then packed it with a normal saline-soaked 4x4 gauze and placed a dry dressing over this. The patient tolerated the procedure well.
[2016-08-21] MEDS: Insulin Human REGular 300 Unit/3 mL Inj SUBQ SCH ×3 (02:30→14:30)
[2016-08-21] MEDS: 0.9% Sodium Chloride 1,000 ML IV SCH (02:33)
[2016-08-21] MEDS: Piperacillin-Tazo 3.375 Gm Inj 3.375 GM in Dextrose 5% Minibag Plus 50 ML IV SCH ×3 (03:23→19:56)
[2016-08-21] MEDS: Vancomycin Inj 1,250 MG in 0.9% Sodium Chloride 250 ML IV SCH ×3 (03:55→20:02)
[2016-08-21 04:50] LABS: Mean Corpuscular Hemoglobin 29.2 pg (27.0-35.0); Mean Corpuscular Volume 88.4 fL (81-100); Platelet Count 385 bil/L (150-400)
[2016-08-21 06:24] LABS: BASOPHILS % (AUTO) 0 % (0-3); EOSINOPHILS % (AUTO) 1 % (0-5); MONOCYTES % (AUTO) 16 % (4-12); NEUTROPHILS % (AUTO) 64 % (40-74)
--- NOTE | 2016-08-21 06:41 | NUR ---
PAIN Pt c/o bladder pain throughout the night. Dilaudid given with good results. Pt's thakkar patent draining dark dayanara with dark red clots and sediment. Pts VSS, H&H stable.
[2016-08-21] MEDS: Vancomycin Dose per Pharmacist XX SCH (07:37)
[2016-08-21] MEDS ORDERED: HYDROmorphone 1 mg/mL Inj IVPUSH ONE (08:40)
--- NOTE | 2016-08-21 08:45 | DRSVH ---
PROCEDURE: X-RAY CHEST ONE VIEW, PORTABLE ([id number]) INDICATIONS: CHEST PAIN TECHNIQUE: One view of the chest was acquired. COMPARISON: [facility], CR, XR CHEST 1VW (PORTABLE), 08/19/2016, 21:20. FINDINGS: Surgical changes and devices: Right-sided portacatheter has been removed. Lungs and pleura: No pleural effusions or pneumothorax. New right perihilar interstitial pulmonary o pacities. Stable left basilar pulmonary opacities. Mediastinum: Mediastinal contours appear normal. Heart size is normal. Bones and chest wall: No suspicious bony lesions. Overlying soft tissues appear unremarkable. IMPRESSION: Stable left basal atelectasis or infiltrate. New right perihilar interstitial pulmonary o pacities most consistent with infection. Right portacatheter has been removed. Dictated by: Vincent Wilson M.D. on 08/21/2016 at 8:41 Approved by: Vincent Wilson M.D. on 08/21/2016 at 8:43
--- NOTE | 2016-08-21 09:17 | PCM.PNSURG ---
Subjective Date of Service: Aug 21, 2016 Date of Service: Aug 21, 2016 Visit Information: Reason for Visit Port Infection,Fever,Severe Anemia Surgery/Surgery Date Infected Port-A-Cath removal/ Aug 20, 2016 Post-Op Day # 1 Date of Admission: Aug 19, 2016 at 23:37 Hospital Day #3 Subjective: Alexis reports feeling better today than yesterday. He has been feeling a little feverish this morning. He is not experiencing shortness of breath or pain at the surgical site. Postop General: No Complaints Gastrointestinal: Passing Flatus, Complains of Nausea Pain Management: PO, IV Push Neurological: Weakness Postop Activity: Ambulate with Assist Objective Vital Sign- Last 8 Hours Date Time Temp Pulse Resp B/P Pulse Ox O2 Delivery O2 Flow Rate FiO2 08/21/16 07:27 36.8 88 16 112/78 94 Nasal Cannula 2.00 08/21/16 07:27 Supplement Oxygen 08/21/16 05:20 83 08/21/16 04:55 37.1 87 16 124/79 94 Nasal Cannula 2.00 08/21/16 04:54 Supplement Oxygen 08/21/16 02:24 37.4 90 16 119/68 94 Nasal Cannula 2.00 Intake and Output- Last 8 Hour 08/21/16 Cumulative From/Thru 06:59 08/19/16 20:30 - 08/21/16 06:33 Intake Total 1030 ml 3976 ml Output Total 5550 ml Balance 1030 ml -1574 ml Intake Oral 250 ml IV Total 1030 ml 3426 ml Packed Cells 300 ml Output Urine Total 5550 ml General: Alert, Oriented X3, Cooperative, Mild Distress Neck: Supple Lungs: Normal Air Movement, Coarse Heart: Regular Rate/Rhythm, No Murmurs/Rubs/Gallops Abdomen: Benign, Soft, Non-distended, Protuberant SURGICAL WOUND : Wound Location/Description Right chest wall dressing intact with minimal drainage. Examined with neonatal specialist Moises. No drainage, clean open incision with mild erythema in the area surrounding less so than yesterday. Wound General Appearence: Open (for secondary healing) Dressing & Drainage Status: Intact, Minimal Extremities: Warm, Edema Localized (bilateral lower extremeties) Neuro: Grossly Neurologically Intact, Normal Speech Catheters: Pre Existing Wetahers Cath (dark urine) Result Diagram: 6/9/17 0440 6/9/17 0440 Lab & Micro Results: Preliminary micro on tip of Port-a-Cath shows Staph species, sensitivities to follow. Diagnostics: CXR this morning shows: Stable left basal atelectasis or infiltrate. New right perihilar interstitial pulmonary opacities most consistent with infection. Right portacatheter has been removed. Dictated by: Vincent Wilson M.D. on 08/21 at 8:41 Assessment & Plan Impression 51 yo male post op day 1 status post Port-a-Cath removal has a history of high grade papillary urothelial carcinoma s/p incomplete TURBT, DM2, and hyperlipidemia. He is continuing to improve. He is surgically stable with right upper chest open wound to heal secondarily. Day 2 of IV Vancomycin and Zosyn. Problems: Plan 1. Wound dressing changes as ordered by Dr. Harris, wound care following, appreciate their time and expertise in treating this patient. 2. Pain control by hospitalist team 3. Micro sensitivities for tip of Port-A-Cath pending. Appreciate ID recommendations as they are also following this case. Thank you for this interesting consult. Pain Management: Palliative team working on pain management. IV and PO at this time. VTE Prophylaxis: SCDs Resuscitation Status: CPR: Attempt Resuscitation Attending Statement: I agree with Dr. Perry's assessment and plan. copies to: Thomas Murdock MD; Rui Curry MD; Damaris Mohamud MD, Erika R DO Aug 21, 2016 09:17 Rui Curry MD Aug 28, 2016 13:43
[2016-08-21] MEDS: Pantoprazole 4 mg/mL 10 mL Inj IVPUSH SCH (10:30)
--- NOTE | 2016-08-21 11:23 | PCM.PNMED ---
Subjective Date of Service Aug 21, 2016 Subjective 51yoM with history of high grade papillary urothelial carcinoma s/p incomplete TURBT, DM2, and hyperlipidemia, that presented to [facility] with recurrent hematuria , increased fatigue and mild fevers. This morning, he developed retrosternal chest discomfort that he described as feeling numb there and that started after taking his morning medications. He also developed diaphoresis, nausea, and 1 episode of vomiting. His legs are painful. His abdomen no longer hurts. His chest discomfort resolved after vomiting. He also felt like it was harder to breathe. Exam Vital Signs Vital Sign - Last Date Time Temp Pulse Resp B/P Pulse Ox O2 Delivery O2 Flow Rate FiO2 08/21/16 05:20 83 08/21/16 04:55 37.1 16 124/79 94 Nasal Cannula 2.00 Intake and Output 08/20/16 08/20/16 08/21/16 Cumulative From/Thru 15:00 23:00 07:00 08/19/16 20:30 - 08/21/16 06:33 Intake Total 991 ml 980 ml 1030 ml 3976 ml Output Total 2125 ml 5550 ml Balance 991 ml -1145 ml 1030 ml -1574 ml Intake Oral 200 ml 250 ml IV Total 991 ml 780 ml 1030 ml 3426 ml Packed Cells 300 ml Output Urine Total 2125 ml 5550 ml Exam General: Alert, Oriented X3, Cooperative, No acute Distress, obvious fatigue Eyes: PERRLA, Scleral Anicteric Mouth: Mouth Normal, Mucous Membranes Moist/[place] Neck: Supple Chest & Lungs: Fine crackles diffuse right lung [place]. No wheezes or rhonchi. No accessory muscle use. Right wound dressing clean, dry, and intact. Cardiovascular: Normal S1, Normal S2, No Murmurs/Rubs/Gallops, Regular Rate/ Rhythm, (No JVD, no peripheral edema) Pulses: Dorsalis Pedi (present and equal) Abdomen: Soft, tender lower quadrants and suprapubic, no rebound, Non-distended , hypoactive bowel tones. Musculoskeletal: Unremarkable. Normal range of motion, no swollen or erythematous joints Extremities: Mild pitting edema bilateral lower extremity to mid anterior lower leg, excoriations bilateral lower legs with purulent drainage that are improving. Left forearm eschar with surrounding erythema approximately 3-4 cm in diameter Skin: Pale. No rashes. Warm and dry, erythematous areas Neurological: Grossly neurologically intact, Normal Speech, Sensation Intact IVs and Medications Medications Reviewed: Medications were reviewed in detail Lab and Diagnostics Result Diagram: 08/21/16 0440 08/21/16 0440 X-Rays, CTs and MRIs PROCEDURE: X-RAY CHEST ONE VIEW, PORTABLE IMPRESSION: Left basilar atelectasis versus pneumonia. Please correlate with clinical data. Approved by: Lizzy Mays MD, PhD on 08/19/2016 at 21:45 PROCEDURE: X-RAY CHEST ONE VIEW, PORTABLE IMPRESSION: Stable left basal atelectasis or infiltrate. New right perihilar interstitial pulmonary opacities most consistent with infection. Right portacatheter has been removed. Approved by: Vincent Wilson M.D. on 08/21/2016 at 8:43 12-lead ECG Repeat EKG 08/21/16 showed normal sinus rhythm with no ST segment changes Assessment & Plan 51yoM with history of high grade papillary urothelial carcinoma s/p incomplete TURBT, DM2, and hyperlipidemia, that presented to [facility] with recurrent hematuria , increased fatigue and mild fevers Acute blood loss anemia, acute, present on admission, stable -secondary to hematuria, onset 08/19 at 1800. Likely secondary to papillary urothelial cancer as below -s/p 4 units pRBCs -keep 3 units in house at all times -closely monitor H&H, q4hr -urology consulted and following. Their time and recommendations are appreciated. Pt may need to be transferred to for surgical intervention Port infection, acute, present on admission, improving -purulent discharge from port site. Port-a-cath removed -f/u blood cx -piperacillin-tazobactam, vancomycin started in ED, continue, pharmacy to dose vancomycin -infectious disease consulted and following. Their time and recommendations are appreciated. Culture obtained from site and shows possible staph aureus -oncology is aware of patient's hospitalization. -Surgery consulted and following. Their time and recommendations are appreciated. Cellulitis bilateral, acute, present on admission -worsening lower extremity abrasions with purulent drainage, increased erythema and tenderness -continue piperacillin-tazobactam, vancomycin -Wound evaluation. Their time and recommendations are appreciated Possible health care associated pneumonia, acute -Seen in health care setting 08/13/16 -Pt reports some dyspnea, nasal congestion, and sore throat -CXR shows new right perihilar interstitial pulmonary opacities -Viral PCR ordered -Incentive spirometer -Continue antibiotics as above Elevated alkaline phosphatase, present on admission, improving - Alkaline phosphatase 321 on admission - Check GGT with morning labs, if elevated, consider RUQ ultrasound to pursue possible hepatic origin - Continue to monitor Hyponatremia, acute, present on admission, resolved. -mild -continue to monitor Elevated troponin, acute, present on admission -likely demand ischemia from acute blood loss and active infections -trend troponin -holding ASA given acute blood loss anemia Leukocytosis, acute, present on admission, resolved. -secondary to above infections -treat as above Pain management, chronic -managed at home with methadone and hydromorphone, will continue, reviewed medication list from home - Palliative care consulted and following. Their time and recommendations are appreciated. Diabetes mellitus type II, insulin dependent -diabetic diet -Lispro low dose correctional scale Hypothyroidism, chronic, present on admission -continue levothyroxine Papillary urothelial carcinoma, chronic -finished chemotherapy 08/05 -Schistosoma antibody ordered -management as per oncology -urology consulted as above and possible transfer to - Palliative care consulted and following. Their time and recommendations are appreciated. VTE Prophylaxis: SCDs Resuscitation Status: CPR: Attempt Resuscitation Attending Statement The patient was seen and examined together with Dr. Deleon on 08/21/16 and I agree with the history, exam and plan as outlined in the note above. iTara Deleon DO Aug 21, 2016 06:36 Luci Brown DO Aug 23, 2016 18:38
[2016-08-21] MEDS ORDERED: Vancomycin Serum Trough XX ONE (11:30)
[2016-08-21] MEDS: LORazepam 1 mg Tablet PO PRN ×2 (14:53→20:02)
--- NOTE | 2016-08-21 16:10 | NUR ---
Social Work: Screen D: Per EMR review, pt is a 51 year old male admitted for Port Infection, Fever, Severe Anemia. Pt is [employer] of [employer] insurance. PCP is Fausto Salvador MD. NOK is Sherly Knutson, . Advanced directives completed and on file. Readmit score is low, 2/8. Pt discussed in am rounds. Pt is not medically stable for discharge at this time. Surgery, Palliative care and Oncology are following the pt. Pt lives in [place] with his . He is I at baseline. A: Pt who is I at baseline. 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 ANGEL Yarbrough
--- NOTE | 2016-08-21 16:12 | PCM.PALLBR ---
Palliative Care Recommendation Unfortunate 51-year-old gentleman, well-known to the palliative medicine service , with muscle invasive high-grade bladder urothelial carcinoma, status post chemotherapy and awaiting urologic surgical intervention, admitted with hematuria, severe anemia, fever, etc. and evidence of infected right chest access port. Palliative medicine consulted to assist with symptoms/pain management. Patient was to have seen his urologist in the office today (08/21/16) for discussion of possible further surgical treatment. Now awaiting further input from his oncology/urology consultants. Summary of palliative recommendations: -Symptom management (Pain/other)- see review of current outpatient pain medications below in HPI. I have ordered his usual scheduled methadone and prn hydromorphone. Reviewed his updated medication list with his nurse who will complete his medical reconciliation in the EMR. Continue to follow and adjust medications as needed in the coming days. -DPOA/Advanced Directives/POLST- full code -Family/emotional support- excellent support from his Additional Medical Diagnoses with primary management by Hospitalist team include : Acute blood loss anemia, acute, POA Port infection, acute, POA Cellulitis bilateral, acute, POA Leukocytosis, acute, POA Hyponatremia, acute, POA Elevated troponin, acute, POA Pain management, chronic Diabetes, insulin dependent Hypothyroidism, chronic, POA Papillary urothelial carcinoma, chronic Problems: End of Life Preferences Full code Disposition To be determined Resuscitation Status Resuscitation Status: CPR: Attempt Resuscitation POLST Updates/Changes Previous POLST?: No . Pain: Moderate Symptom management: Nausea, Pain Total time 25 minutes; >50% face to face with patient and family, providing counselling regarding plans and recommendations, and in care coordination with his/her medical teams. Palliative Brief Note Date of Service Aug 21, 2016 . Returned to reevaluate patient. Prior to visiting, reviewed his updated records in the EMR in detail and spoke with his bedside nurse. After my visit, called his and updated her. On my arrival, he is resting in bed. Color is better. He awakens easily and is appropriate and oriented. Had an episode of emesis this morning after he took all of his pills on an empty stomach- now complaints of some indigestion. Requested antacids. Continues to have pain, generally adequately controlled somewhat more uncomfortable now after vomiting. On exam, vital signs noted. Skin is still pale, but warm and dry. Head and neck exam unremarkable. Heart and lung exam stable. Abdomen obese, soft, without peritoneal signs. Diffuse puffiness and edema of the extremities. Lower extremities with scattered erythema and patches of eschar; significant pitting edema persists. Laboratory studies reviewed in detail. Thomas Naqvi MD Aug 21, 2016 16:12
--- NOTE | 2016-08-21 18:29 | NUR ---
Nausea/Pain Patient c/o 10/10 bladder pain and intermittent nausea through shift. PRN dilaudid and zofran given with good effect.
[2016-08-21] MEDS ORDERED: Glucose 40% Oral Gel 15 Gm Tube PO PRN (18:50)
--- NOTE | 2016-08-21 19:20 | NUR ---
Wound Note Patient seen at bedside for multiple wound issues, 51 yo male admitted to [facility] with infected portacath, hx of bladder cancer and diabetes. Portacath wound site at right upper pectoral region is clean and without erythema, measures 3 cm W x 1.5 CM L x 1.3 cm D, wound base is cleaned, this was packed with 1/2 " packing strip and covered with 2x2 gauze, can be changed daily by nursing. Diabetic ulcer at right 2nd toe dorsally is dry and nondraining, 1 cm in diameter and covered with dry eschar. dressed this with mepilex foam dressing, can be changed by nursing PRN. right anterior cain abrasion is covered with foam dressing. Left lateral lower leg has a weeping ulcer which measures 10 cm L x 6 cm W x 0.1 cm, this was cleaned with saline and dressed with Xeroform, kerlix and coban wrapped. Believe this wound is due to edema and stasis disease. Will need HH for dressing changes on discharge and follow up at the wound center.
[2016-08-21] MEDS: Insulin LISPRO 300 Unit/3 mL Inj SUBQ SCH (21:17)
--- NOTE | 2016-08-21 22:52 | PROG NOTE ---
[address] [address] PROGRESS NOTE PATIENT: DIANA CROWELL : 1965 MR#: [id number] ADMIT: 08/19/2016 JOB ID: [id number] INPATIENT MEDICAL ONCOLOGY PROGRESS REPORT: DATE: 08/21/2016 DIAGNOSES: 1. Muscle invasive bladder cancer, clinical T2 N0, status post neoadjuvant chemotherapy. 2. Profound anemia. 3. Infected Port-A-Cath. HISTORY OF PRESENT ILLNESS: The patient is a very pleasant 51-year-old nonsmoker gentleman who initially presented in May with severe pelvic pain and hematuria and was eventually diagnosed with muscle invasive bladder cancer. He needed to undergo arterial embolization to stop persistent hematuria. His initial CT scans showed borderline adenopathy in periportal and other abdominal regions, reactive versus metastatic. Eventually, he completed four cycles of dose dense neoadjuvant MVAC chemotherapy. Post chemotherapy cystoscopy showed tumor necrosis. Additionally, his pain has significantly improved and he has not had hematuria for over a month. His CT scan after chemotherapy showed resolution of lymphadenopathy, but his bladder tumor appeared larger. The patient presented to hospital two days ago with fever and found profoundly anemic. His Port-A-Cath was found broken down and eroding through the skin, with surrounding cellulitis. It was removed earlier today. He has not had throughout hospital stay. Blood cultures have remained negative, and he has been receiving IV vancomycin and Zosyn. Currently, he feels better, but still profoundly fatigued. He indicates that his bladder pain has significantly improved as compared to a few weeks ago. He is awake, alert, and oriented x3. Blood pressure 142/74, heart rate 77, temperature 37. The urine in his collection bag is clear. LABORATORY DATA: Hemoglobin on admit was 5.6, but after blood transfusion, has improved to 9.4. Renal function is intact. Troponin T is persistently positive. IMPRESSION AND PLAN: 1. Infected Port-A-Cath, removed. The patient is on IV vancomycin and Zosyn. 2. Aggressive muscle invasive bladder cancer, status post neoadjuvant chemotherapy. Dr. iLzzy Curry has scheduled radical cystectomy with ileal conduit diversion I believe in about two weeks. The patient is very happy to be able to undergo this surgery locally. 3. Profound anemia, multifactorial, related to recent chemotherapy, infection, and hematuria. Blood transfusion has been given and currently hemoglobin and hematocrit are stable.
[2016-08-22] MEDS: Vancomycin Inj 1,250 MG in 0.9% Sodium Chloride 250 ML IV SCH ×2 (03:38→12:40)
[2016-08-22] MEDS: Piperacillin-Tazo 3.375 Gm Inj 3.375 GM in Dextrose 5% Minibag Plus 50 ML IV SCH ×3 (03:38→20:41)
[2016-08-22 03:54] LABS: Mean Corpuscular Volume 88.7 fL (81-100); Platelet Count 368 bil/L (150-400)
[2016-08-22 04:09] VITALS: BP 128/76; PULSE 84; RESP 18; O2SAT 95
[2016-08-22 04:19] LABS: BASOPHILS % (AUTO) 1 % (0-3); EOSINOPHILS % (AUTO) 2 % (0-5); MONOCYTES % (AUTO) 24 % (4-12); NEUTROPHILS % (AUTO) 48 % (40-74)
[2016-08-22 05:28] VITALS: PULSE 84
--- NOTE | 2016-08-22 05:58 | NUR ---
PAIN Pt continued to c/o bladder pain 09/21, IV Dilaudid given with good results. Pt extremely tired and pale, but VSS and H&H 12/09.5
[2016-08-22] MEDS: HYDROmorphone 1 mg/mL Inj IVPUSH PRN ×4 (06:32→16:35)
[2016-08-22 08:00] VITALS: BP 141/98; PULSE 80; RESP 14; O2SAT 97
[2016-08-22] MEDS: Insulin LISPRO 300 Unit/3 mL Inj SUBQ SCH ×4 (08:00→21:15)
[2016-08-22] MEDS: Vancomycin Dose per Pharmacist XX SCH (08:30)
[2016-08-22] MEDS: Pantoprazole 4 mg/mL 10 mL Inj IVPUSH SCH (08:46)
--- NOTE | 2016-08-22 12:23 | PROG NOTE ---
[address] [address] PROGRESS NOTE PATIENT: DIANA CROWELL : 1965 MR#: [id number] ADMIT: 08/19/2016 JOB ID: [id number] DATE: 08/22/2016 NARRATIVE: The patient remains in the hospital with hematuria, anemia and ongoing pain. Hematuria and bladder spasms are expected and will continue until the bladder is removed. At present, surgery is scheduled for August 31. I expect difficulties postoperatively with pain control but will plan on an epidural catheter being placed at the time of surgery. Surgery has been discussed previously on multiple occasions. It was reviewed today again today. We have elected for an ileal conduit diversion rather than a continent or internal diversion because of the lower complication rate. Should his cystectomy proved to be curative and they wish a continent diversion, this is something that always can be accomplished at a later date.
[2016-08-22] MEDS ORDERED: Lidocaine 2% 5 mL Topical Jelly MUC_MEMBRM PRN (12:25)
[2016-08-22] MEDS ORDERED: Lidocaine Topical 2% 30 mL Jelly ONE (13:30)
--- NOTE | 2016-08-22 14:01 | NUR ---
NUTRITION ASSESSMENT: ASSESS:51 YO male with history of high grade papillary urothelial carcinoma, status post chemotherapy, presented to the ED with recurrent hematuria, bladder spasms, increased fatigue and mild fevers. Per surgery, the hematuria and bladder spasms will continue until the bladder is removed. At present, surgery is scheduled for August 31, with an ileal conduit diversion, rather than a continent or internal diversion of of the lower complication rate. Per oncology, the increased fatigue, mild fevers, and profound anemia are likely due to infected Port-A-Cath with surrounding cellulitis. The Port-A-Cath was removed yesterday. Although patient has been on a full liquid diet for several days, he is not taking anything orally, per documentation. His weight does not reflect his malnourished status. He has gained 0.6 kg since he was discharged 08/04. He has received significant nutrition strategies during his past admissions. Supplements have been tailored to his preferences. PMHx:Type 2 diabetes, bladder cancer, HLD, cardiac arrest. DIET:Full liquids x 2 D. Pt. refusing trays. LABS: Reviewed. Chloride 96, Cr 0.55, ca 8.2, Alk Phos 230, Alb 2.4. MEDICATIONS: Reviewed. Insulin, synthroid. NUTRITION FOCUSED PHYSICAL ASSESSMENT: GI symptoms / stool: No stool reported.Guero: 19. Skin Integrity: WC seeing pt. for multiple wound issues. Port-A-Cath wound site at right upper pectoral region is clean and without erythema. Diabetic ulcer at right 2nd toe dorsally is dry and nondraining. Right anterior cain abrasion is covered with foam dressing. Left lateral lower leg has a weeping ulcer due to edema and stasis disease. ANTHROPOMETRICS: Current Wt: 138.3 kgBMI: 40.0 kg/m2.Admit weight: 136.6 kg IBW: 83.64 kg (163% IBW) ESTIMATED NEEDS (CLASS II OBESITY, WOUNDS): Calories: 2091 - 2509 kcal (25 - 30 kcal / kg IBW) Protein: 151 - 167 g protein (1.8 - 2.0 g / kg IBW) Fluid: Approx. 4098 mL (30 mL / kg BW) NUTRITION DIAGNOSIS: 1)Inadequate oral intake related to chronic disease, fatigue, nausea, as evidenced by minimal PO intake since admit x 3 D. 2)Increased nutrient needs related to multiple wound issues, advanced cancer, as evidenced by WC's and oncology's documentation. INTERVENTION: 1) Will add Glucerna and milk on all trays, yogurt and Mighty Shakes at 0200. 2) Will continue to follow patient to develop nutrition strategies to mitigate malnutrition issues. MONITOR/EVALUATE: Diet advance / tolerance, PO intake, labs, GI/nutrition status. Follow up per high nutrition risk guidelines.
[2016-08-22 16:22] VITALS: BP 142/80; PULSE 79; RESP 18; O2SAT 95
--- NOTE | 2016-08-22 16:56 | PCM.PNMED ---
Subjective Date of Service Aug 22, 2016 Subjective 51yoM with history of high grade papillary urothelial carcinoma s/p incomplete TURBT, DM2, and hyperlipidemia, that presented to [facility] with recurrent hematuria , increased fatigue and mild fevers. He continues to have intermittent bladder pain. He does not have chest pain or dyspnea this morning. He has nausea associated with taking medications. Exam Vital Signs Vital Sign - Last Date Time Temp Pulse Resp B/P Pulse Ox O2 Delivery O2 Flow Rate FiO2 08/22/16 16:22 36.0 79 18 142/80 95 Nasal Cannula 2.00 Intake and Output 08/21/16 08/21/16 08/22/16 Cumulative From/Thru 15:00 23:00 07:00 08/19/16 20:30 - 08/22/16 06:07 Intake Total 1030 ml 340 ml 5346 ml Output Total 1100 ml 470 ml 7120 ml Balance -70 ml -130 ml -1774 ml Intake Oral 560 ml 340 ml 1150 ml IV Total 470 ml 3896 ml Packed Cells 300 ml Output Urine Total 1100 ml 470 ml 7120 ml Exam General: Alert, Oriented X3, Cooperative, No acute Distress, obvious fatigue Eyes: PERRLA, Scleral Anicteric Mouth: Mouth Normal, Mucous Membranes Moist/[place] Neck: Supple Chest & Lungs: Fine crackles right lower lung glover. No wheezes or rhonchi. No accessory muscle use. Right wound dressing clean, dry, and intact. Cardiovascular: Normal S1, Normal S2, No Murmurs/Rubs/Gallops, Regular Rate/ Rhythm, Abdomen: Soft, tender suprapubic, no rebound, Non-distended, normal bowel tones. Musculoskeletal: Unremarkable. Normal range of motion, no swollen or erythematous joints Extremities: Mild pitting edema bilateral lower extremity to mid anterior lower leg, excoriations right lower legs with purulent drainage that are improving. Left leg wrapped. Left forearm eschar beneath wound dressing Skin: Pale. No rashes. Warm and dry, erythematous areas Neurological: Grossly neurologically intact, Normal Speech, Sensation Intact IVs and Medications Medications Reviewed: Medications were reviewed in detail Lab and Diagnostics Result Diagram: 08/22/1633408/22/16334 X-Rays, CTs and MRIs PROCEDURE: X-RAY CHEST ONE VIEW, PORTABLE IMPRESSION: Left basilar atelectasis versus pneumonia. Please correlate with clinical data. Approved by: Lizzy Mays MD, PhD on 08/19/2016 at 21:45 PROCEDURE: X-RAY CHEST ONE VIEW, PORTABLE IMPRESSION: Stable left basal atelectasis or infiltrate. New right perihilar interstitial pulmonary opacities most consistent with infection. Right portacatheter has been removed. Approved by: Vincent Wilson M.D. on 08/21/2016 at 8:43 12-lead ECG Repeat EKG 08/21/16 showed normal sinus rhythm with no ST segment changes Assessment & Plan 51yoM with history of high grade papillary urothelial carcinoma s/p incomplete TURBT, DM2, and hyperlipidemia, that presented to [facility] with recurrent hematuria , increased fatigue and mild fevers Acute blood loss anemia, acute, present on admission, stable -secondary to hematuria, onset 08/19 at 1800. Likely secondary to papillary urothelial cancer as below -s/p 4 units pRBCs -keep 3 units in house at all times -closely monitor H&H in the mornings -urology consulted and following. Their time and recommendations are appreciated. Surgery scheduled for August 31 Port infection, acute, present on admission, improving -purulent discharge from port site. Port-a-cath removed -piperacillin-tazobactam, vancomycin started in ED -infectious disease consulted and following. Their time and recommendations are appreciated. -Culture obtained from site and shows Staph aureus that is sensitive to oxacillin. Stopped vancomycin, continue piperacillin-tazobactam -oncology is aware of patient's hospitalization. -Surgery consulted and following. Their time and recommendations are appreciated. Cellulitis bilateral, acute, present on admission -worsening lower extremity abrasions with purulent drainage, increased erythema and tenderness -continue piperacillin-tazobactam as above -Wound evaluation. Their time and recommendations are appreciated Possible health care associated pneumonia, acute -Seen in health care setting 08/13/16. Sputum culture shows Staph aureus with sensitivities pending -Pt reported some dyspnea, nasal congestion, and sore throat -CXR shows new right perihilar interstitial pulmonary opacities -Viral PCR negative -Incentive spirometer -Continue antibiotics as above Elevated alkaline phosphatase, present on admission, improving - Alkaline phosphatase 321 on admission - Checked GGT and results pending, if elevated, consider RUQ ultrasound to pursue possible hepatic origin - Continue to monitor Hyponatremia, acute, present on admission, resolved. -mild -continue to monitor Elevated troponin, acute, present on admission -likely demand ischemia from acute blood loss and active infections -holding ASA given acute blood loss anemia Leukocytosis, acute, present on admission, resolved. -secondary to above infections -treat as above Pain management, chronic -managed at home with methadone and hydromorphone, will continue per palliative care - Palliative care consulted and following. Their time and recommendations are appreciated. Diabetes mellitus type II, insulin dependent -diabetic diet -Lispro low dose correctional scale Hypothyroidism, chronic, present on admission -continue levothyroxine Papillary urothelial carcinoma, chronic -finished chemotherapy 08/05 -Schistosoma antibody ordered and pending -oncology consulted as above -urology consulted as above - Palliative care consulted and following. Their time and recommendations are appreciated. VTE Prophylaxis: SCDs Resuscitation Status: CPR: Attempt Resuscitation Attending Statement The patient was seen and examined together with Dr. Deleon on 08/23/16 and I agree with the history, exam and plan as outlined in the note above. Tiara Deleon DO Aug 22, 2016 16:56 Luci Brown DO Aug 23, 2016 17:52
--- NOTE | 2016-08-22 18:10 | NUR ---
Up in room w/ SBA, showered today,up to chair and side of bed. Initially refused PO analgesics, stating they made him nauseous. Zofran helpful, PO Dilaudid given with IV for break-thru pain with good effect. Reports poor appetite, no nausea to speak of. Vital signs stable, sinus rhythm on tele, no fevers. No insulin indicated for bedside blood sugars. Supportive and son at bedside. Pleasant and in good spirits. Skin pale/warm. Lidocaine jelly helpful for c/o catheter/meatus pain. Requested 02 by nasal cannula because it "makes him feel better", RA sats are 95-97%. No resp distress noted, no c/o shortness of breath. Reports a congested cough, though this has not been observed.
--- NOTE | 2016-08-22 19:03 | NUR ---
Large UOP today, found thakkar cath disconnected, very large amount of urine on bedding. Patient showered, linens changed, drainage bag changed and secured. I/O charted amount will be inaccurate due to this.
[2016-08-22 20:25] VITALS: PULSE 83
[2016-08-22] MEDS: LORazepam 1 mg Tablet PO PRN (20:31)
[2016-08-22 20:32] VITALS: BP 136/78; PULSE 83; RESP 16; O2SAT 96
[2016-08-23] VITALS (9 sets, daily range): BP systolic 124–148; BP diastolic 77–83; PULSE 74–86; RESP 16–20; O2SAT 94–97
[2016-08-23] MEDS: Piperacillin-Tazo 3.375 Gm Inj 3.375 GM in Dextrose 5% Minibag Plus 50 ML IV SCH ×3 (03:19→20:15)
--- NOTE | 2016-08-23 04:02 | NUR ---
pain: pt's pain well controlled on po dilaudid and methadone rates pain 5/10. pt. has not needed prn iv dose of dilaudid.
--- NOTE | 2016-08-23 05:53 | NUR ---
pain/neuro: pt. very sedate this morning after receiving po dilaudid and methadone last night, pt. can barely open his eyes, resp 12.
[2016-08-23] MEDS: Insulin LISPRO 300 Unit/3 mL Inj SUBQ SCH ×4 (07:35→20:20)
[2016-08-23] MEDS: Pantoprazole 4 mg/mL 10 mL Inj IVPUSH SCH (08:55)
[2016-08-23] MEDS: Ondansetron 2 mg/mL 2 mL Inj IVPUSH PRN ×3 (09:22→23:56)
[2016-08-23] MEDS: HYDROmorphone 1 mg/mL Inj IVPUSH PRN ×4 (09:30→23:55)
--- NOTE | 2016-08-23 14:55 | PCM.PNMED ---
Subjective Date of Service Aug 23, 2016 Subjective Overnight the patient did well. He continues to have some nausea and vomiting if he takes his pills all at once. Treatment course was discussed with the patient. He is currently set for intervention for his bladder cancer on August 31. He still unable to eat and is not showing much effort in getting out of bed. Denies additional review of systems Exam Vital Signs Vital Sign - Last Date Time Temp Pulse Resp B/P Pulse Ox O2 Delivery O2 Flow Rate FiO2 08/23/16 12:43 37.0 77 18 136/83 Nasal Cannula 2.00 96 08/23/16 07:36 94 Intake and Output 08/22/16 08/22/16 08/23/16 Cumulative From/Thru 15:00 23:00 07:00 08/19/16 20:30 - 08/23/16 06:27 Intake Total 1540 ml 873 ml 7759 ml Output Total 800 ml 3550 ml 43663 ml Balance 740 ml -2677 ml -3711 ml Intake Oral 640 ml 520 ml 2310 ml IV Total 900 ml 353 ml 5149 ml Packed Cells 300 ml Output Urine Total 800 ml 3550 ml 69849 ml # Bowel Movements 1 1 Exam General: Alert, Oriented X3, Cooperative, No acute Distress, obvious fatigue Chest & Lungs: Crackles in the bases bilaterally; otherwise clear to auscultation Cardiovascular: Regular rate and rhythm no murmurs rubs or gallops Abdomen: Soft, tender suprapubic, no rebound, Non-distended, normal bowel tones. Extremities: Mild pitting edema bilaterally, excoriations right lower legs with purulent drainage that are improving. Neurological: Grossly neurologically intact, Normal Speech, Sensation Intact Psych: Appropriate mood and affect IVs and Medications Medications Reviewed: Medications were reviewed in detail Lab and Diagnostics Result Diagram: 08/23/16 0255 08/23/16 025 X-Rays, CTs and MRIs PROCEDURE: X-RAY CHEST ONE VIEW, PORTABLE IMPRESSION: Left basilar atelectasis versus pneumonia. Please correlate with clinical data. Approved by: Lizzy Mays MD, PhD on 08/19/2016 at 21:45 PROCEDURE: X-RAY CHEST ONE VIEW, PORTABLE IMPRESSION: Stable left basal atelectasis or infiltrate. New right perihilar interstitial pulmonary opacities most consistent with infection. Right portacatheter has been removed. Approved by: Vincent Wilson M.D. on 08/21/2016 at 8:43 12-lead ECG Repeat EKG 08/21/16 showed normal sinus rhythm with no ST segment changes Assessment & Plan 51yoM with history of high grade papillary urothelial carcinoma s/p incomplete TURBT, DM2, and hyperlipidemia, that presented to [facility] with recurrent hematuria , increased fatigue and mild fevers Nausea/vomiting with anorexia; poa; ongoing -Pt being controlled with antiemetics -Unable to take food and this causes him to vomit. -Advance diet and add phenergan to antiemetics; will consider reglan next -Consider Marinol for appetite stimulation and poss nausea control Papillary urothelial carcinoma, chronic -finished chemotherapy 08/05 -Schistosoma antibody ordered and still pending -oncology and urology consulted as above -Palliative care consulted and following. Their time and recommendations are appreciated. -Surgery scheduled for outpatient Port infection, acute, present on admission, resolving -purulent discharge from port site. Port-a-cath removed -piperacillin-tazobactam, vancomycin started in ED -infectious disease consulted and following. Their time and recommendations are appreciated. -Culture obtained from site and shows Staph aureus that is sensitive to oxacillin. Stopped vancomycin, continue piperacillin-tazobactam Cellulitis bilateral, acute, present on admission; resolving -worsening lower extremity abrasions with purulent drainage, increased erythema and tenderness -continue piperacillin-tazobactam IV as above -Wound evaluation. Their time and recommendations are appreciated Acute blood loss anemia, acute, present on admission, resolved -secondary to hematuria, onset /7 at 1800. Likely secondary to papillary urothelial cancer as below -s/p 4 units pRBCs -keep 3 units in house at all times Possible health care associated pneumonia, acute; resolving -Seen in health care setting 08/13/16. Sputum culture shows Staph aureus with sensitivities pending -Pt reported some dyspnea, nasal congestion, and sore throat -CXR shows new right perihilar interstitial pulmonary opacities -Viral PCR negative -Incentive spirometer -Continue antibiotics to complete 5-7 day course Elevated alkaline phosphatase, present on admission, resolving - Alkaline phosphatase 321 on admission - Checked GGT and results pending, if elevated, consider RUQ ultrasound to pursue possible hepatic origin - Continue to monitor Hyponatremia, acute, present on admission, resolved. -mild -continue to monitor Elevated troponin, acute, present on admission; stable -likely demand ischemia from acute blood loss and active infections -holding ASA given acute blood loss anemia Leukocytosis, acute, present on admission, resolved. -secondary to above infections -treat as above Pain management, chronic -managed at home with methadone and hydromorphone, will continue per palliative care - Palliative care consulted and following. Their time and recommendations are appreciated. Diabetes mellitus type II, insulin dependent -diabetic diet -Lispro low dose correctional scale Hypothyroidism, chronic, present on admission -continue levothyroxine Status: Likely discharge tomorrow pending ability to eat and control nausea VTE Prophylaxis: SCDs VTE Mechanical Devices: Intermittant Pneumatic CD Resuscitation Status: CPR: Attempt Resuscitation Attending Statement The patient was seen and examined together with Dr. Baez on 08/23/16 and I have added additional information to the note above. Jose D Baez DO Aug 23, 2016 14:55 Luci Brown DO Aug 23, 2016 17:40
--- NOTE | 2016-08-23 15:00 | NUR ---
Teaching: Catheter care and dressing change Educated pt. and on catheter care (emptying bag, UTI prevention, meatus cleaning, keep bag below level of bladder, monitoring output and blood clots). changed dressing of LEs and R. chest with supervision from primary nurse. stated she was comfortable with new information and care instructions.
--- NOTE | 2016-08-23 18:46 | NUR ---
GI Poor appetite for days. C/O generalized "not feeling well." One episode of nausea with 200 mL of emesis in the late morning. Zofran was given prior to lunch as directed by Dr. Brown. Pt. was able to hold down lunch. Educated pt. and spouse the importance of balance diet and electrolytes before surgery. PRN IV Dilaudid was given to control pain this shift due to nausea.
[2016-08-23] MEDS: MetoCLOpramide 5 mg/mL 2 mL Inj IVPUSH PRN (19:27)
[2016-08-23] MEDS: LORazepam 1 mg Tablet PO PRN (20:15)
[2016-08-24] MEDS: Piperacillin-Tazo 3.375 Gm Inj 3.375 GM in Dextrose 5% Minibag Plus 50 ML IV SCH (03:33)
[2016-08-24] MEDS: MetoCLOpramide 5 mg/mL 2 mL Inj IVPUSH PRN (03:33)
[2016-08-24] MEDS: HYDROmorphone 1 mg/mL Inj IVPUSH PRN ×4 (03:33→20:38)
[2016-08-24] MEDS: LORazepam 1 mg Tablet PO PRN ×2 (03:38→12:05)
[2016-08-24 03:42] VITALS: BP 136/77; PULSE 79; RESP 18; O2SAT 95
[2016-08-24 03:46] LABS: BASOPHILS % (AUTO) 1.5 % (0-3); EOSINOPHILS % (AUTO) 2.5 % (0-5); Mean Corpuscular Hemoglobin 28.8 pg (27.0-35.0); Mean Corpuscular Volume 88.5 fL (81-100); NEUTROPHILS % (AUTO) 32.9 % (40-74); Platelet Count 289 bil/L (150-400)
--- NOTE | 2016-08-24 05:54 | NUR ---
Pain / Nausea / Tele / O2 Sats / Weathers Pt medicated every 4 hours with 2mg IV Dilaudid for Bladder pain. Pt had one small liquid emsis, early on the rn night, less than 50 mls. Pt medicated with Reglan alternating with Zofran throughout the night for mild nausea w/o any further emisis. No c/o chest pain, Tele SR 70-80s. No c/o SOB, O2 @ sats 94-97% Weathers draining dayanara urine to gravity.
[2016-08-24 08:00] VITALS: BP 147/81; PULSE 77; RESP 18; O2SAT 92
[2016-08-24] MEDS: Insulin LISPRO 300 Unit/3 mL Inj SUBQ SCH ×4 (08:00→20:41)
[2016-08-24] MEDS: Ondansetron 2 mg/mL 2 mL Inj IVPUSH PRN ×3 (08:39→18:45)
[2016-08-24] MEDS: Pantoprazole 4 mg/mL 10 mL Inj IVPUSH SCH (08:48)
[2016-08-24] MEDS ORDERED: 0.9% Sodium Chloride 1,000 ML IV ONE (09:30)
--- NOTE | 2016-08-24 09:32 | PCM.PALLBR ---
Palliative Care Recommendation Unfortunate 51-year-old gentleman, well-known to the palliative medicine service , with muscle invasive high-grade bladder urothelial carcinoma, status post chemotherapy and awaiting urologic surgical intervention, admitted with hematuria, severe anemia, fever, etc. and evidence of infected right chest access port. Palliative medicine consulted to assist with symptoms/pain management. Patient's Port-A-Cath was removed (08/21/2016) and he continues to be on IV antibiotics. Patient is scheduled to undergo surgery on August 31 with plan for an ileal conduit diversion. He continues to be followed by Infectious Disease, Oncology and Urology. Summary of palliative recommendations: Addn: TC to review concerns with Evelina aggarwal's . She wants nausea managed before discharge to maximize his nutrition and hydration befor his upcoming surgery on 08/31 -Symptom management (Pain/other): Nausea: Currently on ondansetron and metoclopramide, which have been ineffective. Primary team will trial Marinol for nausea. We will start Haldol 1mg IV every 6 hours as needed for nausea if Marinol is ineffective. Pain: Patient reports pain was controlled with his outpatient pain regimen but since the onset of his recent illness his pain has not been well controlled , possibly due to emesis and his inability to keep down the PO medications. Continue with outpatient pain medication regimen - methadone 15mg PO every 8 hours and hydromorphone 8mg PO every 3 hours. Continue hydromorphone 1-2mg IV every 4 hours for breakthrough pain. -DPOA/Advanced Directives/POLST- full code -Family/emotional support- excellent support from his Additional Medical Diagnoses with primary management by Hospitalist team include : Acute blood loss anemia, acute, POA Port infection, acute, POA Cellulitis bilateral, acute, POA Leukocytosis, acute, POA Hyponatremia, acute, POA Elevated troponin, acute, POA Pain management, chronic Diabetes, insulin dependent Hypothyroidism, chronic, POA Papillary urothelial carcinoma, chronic Problems: End of Life Preferences Full code Disposition To be determined Resuscitation Status Resuscitation Status: CPR: Attempt Resuscitation POLST Updates/Changes Previous POLST?: No Total time 35 minutes; >50% face to face with patient and/or family, providing counselling regarding plans and recommendations, and in care coordination with his/her medical teams. Attending Statement Patient seen interviewed and examined with Dr. Ly. In addn to above documentation-ECG reviewed with QTc of .45. I agree with assessment and management. Dr. Ko also involved in communications with hospitalist team and clinical staff pharmacist. copies to: Lizzy Curry MD; Fausto Salvador MD Palliative Brief Note Date of Service Aug 24, 2016 . Rounded on patient today with Dr. Romero. Prior to visit, reviewed labs and records in the EMR in detail and discussed patient with bedside nurse and the primary team. Patient reports continued nausea over the weekend and this morning but denies emesis. He was started on metoclopramide over the weekend with minimal improvement of his nausea. Patient also reports continued pain. He states feeling "like a punching bag." On examination, patient is pale and appear comfortable lying in bed, in no acute distress. Right chest with clean, dry dressing. Nasal cannula in place. Right lower extremity with clean bandage and left lower extremity is covered in an elastic wrap. Stephen Ko DO Aug 24, 2016 09:32 Ethel Romero MD Aug 25, 2016 10:36
[2016-08-24] MEDS ORDERED: Haloperidol 5 mg/mL Inj IVPUSH PRN (09:35)
[2016-08-24] MEDS: 0.9% Sodium Chloride 1,000 ML IV SCH ×2 (12:01→20:40)
[2016-08-24 12:29] VITALS: BP 131/77; PULSE 70; RESP 12; O2SAT 93
[2016-08-24 13:01] VITALS: PULSE 78
--- NOTE | 2016-08-24 13:36 | NUR ---
NUTRITION FOLLOW UP: ASSESS: 51 YO male with admitted with port infection. Pt with history of high grade papillary urothelial carcinoma, status post chemotherapy. Plan for bladder removal surgery scheduled for August 31. Pt not eating well per rounds. Marinol started. He has received significant nutrition strategies during his past admissions. Supplements have been tailored to his preferences. PMHx: Type 2 diabetes, bladder cancer, HLD, cardiac arrest. DIET: Full liquids X 4 days + supplements. PO intake 10%. LABS: Reviewed. Cr 0.51, Ca 8.1, Alk Phos 220, Alb 2.7 MEDICATIONS: Reviewed. Marinol, Reglan. GI: 1 BM 08/22 SKIN: WC following for Port-A-Cath wound site, diabetic ulcer at right 2nd toe, & left lateral lower leg with weeping ulcer d/t edema and stasis disease. ANTHROPOMETRICS: Current Wt: 130.8kg, BMI: 38.0 kg/m2. Admit weight: 136.6 kg, IBW: 83.64 kg (163% IBW) ESTIMATED NEEDS (CLASS II OBESITY, WOUNDS): Calories: 7027-0861 kcal/day (25-30 kcal/kg IBW) Protein: 151-167 g/day (1.8-2.0 g/kg IBW) Fluid: Approx. 4098 mL (30 mL/kg BW) NUTRITION DIAGNOSIS: 1) Inadequate oral intake related to chronic disease, fatigue, nausea, as evidenced by minimal PO intake since admit x 3 D.--PERSISTS. 2) Increased nutrient needs related to multiple wound issues, advanced cancer, as evidenced by WC's and oncology's documentation.---PERSISTS. INTERVENTION: 1) Will continue current diet and supplement as ordered. 2) Recommend diet advance as tolerated. MONITOR/EVALUATE: Diet advance/tolerance, PO intake, labs, GI/nutrition status. Follow per high nutrition risk guidelines.
--- NOTE | 2016-08-24 14:58 | NUR ---
spiritual care: follow up LOS brief visit. pt sleepy and described his weariness with soft foods. appreciative of spiritual care support. no needs identified.
[2016-08-24 16:30] VITALS: BP 145/75; PULSE 71; RESP 20; O2SAT 96
[2016-08-24] MEDS ORDERED: CeFAZolin Inj 2 GM in IV Premix 1 EACH IV ONE (16:30)
[2016-08-24] MEDS ORDERED: CeFAZolin 1,000 mg Inj IV ONE (16:30)
--- NOTE | 2016-08-24 16:40 | NUR ---
Social Work Note: Readiness for Discharge Data& Assessment: Per MD pt is getting closer to being medically ready for discharge. SW met with pt at bedside to confirm discharge plan home with spouse via POV. Pt denies any other needs at this time. SW to continue to follow for any pt needs or MD orders. Pt is ambulating in his room at baseline. No other discharge needs identified at this time. Plan: Anticipated discharge home via POV when medically ready. Pt denies any other needs at this time. SW to continue to follow for any pt needs or MD orders. ANGEL Ortiz
--- NOTE | 2016-08-24 16:56 | DRSVH ---
PROCEDURE: US ABDOMEN INDICATIONS: Nausea/vomiting TECHNIQUE: Real-time scanning was performed of the abdominal and retroperitoneal organs, with image documentatio n. COMPARISON: None. FINDINGS: Liver length: 19.91 cm Gallbladder Wall Thickness: 3.30 mm Spleen length: 14.97 cm Right kidney length: 14.51 cm Left kidney length: 12.91 cm Aorta(Proximal): 2.91 cm Aorta(Mid): 2.27 cm Liver: Liver is diffusely increased in echogenicity. No focal hepatic abnormalities identified. No rmal hepatic size. Gallbladder: Gallbladder wall is prominent measuring up to 4.0 mm. Small amount of gallbladder sludg e present. No gallstones. Biliary ducts: Intrahepatic bile ducts are non-dilated. Extrahepatic bile duct not well-seen. Pancreas: Visualized portions of the pancreas are sonographically normal. Spleen: Spleen is enlarged in size and homogeneous in echotexture. Kidneys: Kidneys are normal in size and echotexture. No hydronephrosis or nephrolithiasis. No juan d masses. Aorta: Visualized aorta is normal in caliber at less than 3 cm. Iliacs: Not visualized. IVC: Intrahepatic inferior vena cava is patent. Miscellaneous: No free abdominal fluid. IMPRESSION: 1. Increased hepatic echogenicity noted likely related to fatty infiltration of the liver but other h epatocellular disease cannot be excluded. Recommend clinical correlation. 2. Gallbladder wall is prominent measuring up to 4.0 mm and gallbladder sludge is present. Recommend clinical correlation to exclude early developing cholecystitis. 3. Mild to moderate splenomegaly. Dictated by: Victorino Long Sid Interpreted: Elyse Soliz MD on 08/24/2016 at 16:53 Transcribed by: HARRY on 08/24/2016 at 16:55 Approved by: Elyse Soliz M.D. on 08/24/2016 at 23:06
--- NOTE | 2016-08-24 17:15 | PCM.PNMED ---
Subjective Date of Service Aug 24, 2016 Subjective Overnight the patient's nausea was still uncontrolled and Reglan and Zofran were used intermittently. Patient has been unable to eat or drink. Patient states that he has nauseous with or without oral intake. He denies associated review of systems including fever, chills, or pain. Discussed with Dr. Romero today from palliative care and they will try olanzapine or haloperidol today. Exam Vital Signs Vital Sign - Last Date Time Temp Pulse Resp B/P Pulse Ox O2 Delivery O2 Flow Rate FiO2 08/24/16 16:30 36.6 71 20 145/75 96 Nasal Cannula 1.00 08/23/16 12:43 96 Intake and Output 08/23/16 08/23/16 08/24/16 Cumulative From/Thru 15:00 23:00 07:00 08/19/16 20:30 - 08/24/16 06:57 Intake Total 1074 ml 182 ml 9015 ml Output Total 2100 ml 2500 ml 05213 ml Balance -1026 ml -2318 ml -7055 ml Intake Oral 550 ml 100 ml 2960 ml IV Total 524 ml 82 ml 5755 ml Packed Cells 300 ml Output Urine Total 1900 ml 2500 ml 65477 ml Emesis 200 ml 200 ml # Bowel Movements 1 Exam General: Alert, Oriented X3, Cooperative, No acute Distress, improved from yesterday Chest & Lungs: Crackles in the bases bilaterally; otherwise clear to auscultation Cardiovascular: Regular rate and rhythm no murmurs rubs or gallops Abdomen: Soft, tender suprapubic, no rebound, Non-distended, normal bowel tones. Extremities: Mild pitting edema bilaterally, excoriations right lower legs with purulent drainage that are improving. IVs and Medications Medications Reviewed: Medications were reviewed in detail Lab and Diagnostics Result Diagram: 08/24/16 0330 08/24/16 0330 X-Rays, CTs and MRIs PROCEDURE: X-RAY CHEST ONE VIEW, PORTABLE IMPRESSION: Left basilar atelectasis versus pneumonia. Please correlate with clinical data. Approved by: Lizzy Mays MD, PhD on 08/19/2016 at 21:45 PROCEDURE: X-RAY CHEST ONE VIEW, PORTABLE IMPRESSION: Stable left basal atelectasis or infiltrate. New right perihilar interstitial pulmonary opacities most consistent with infection. Right portacatheter has been removed. Approved by: Vincent Wilson M.D. on 08/21/2016 at 8:43 12-lead ECG Repeat EKG 08/21/16 showed normal sinus rhythm with no ST segment changes Assessment & Plan 51yoM with history of high grade papillary urothelial carcinoma s/p incomplete TURBT, DM2, and hyperlipidemia, that presented to [facility] with recurrent hematuria , increased fatigue and mild fevers Nausea/vomiting with anorexia; poa; ongoing -Pt being controlled with antiemetics -Unable to take food and this causes him to vomit. -Marinol started today -Trial of haloperidol Elevated alkaline phosphatase, present on admission, ongoing - Alkaline phosphatase 321 on admission - GGT elevated with ALP - US abdomen pending Papillary urothelial carcinoma, chronic -finished chemotherapy 08/05 -Schistosoma antibody ordered and still pending -oncology and urology consulted as above -Palliative care consulted and following. Their time and recommendations are appreciated. -Surgery scheduled for outpatient Port infection, acute, present on admission, resolving -purulent discharge from port site. Port-a-cath removed -piperacillin-tazobactam, vancomycin started in ED -Culture obtained from site and shows Staph aureus that is sensitive to oxacillin. -Stopped Zosyn per ID -ID consulted and appreciate their recs Cellulitis bilateral, acute, present on admission; resolving -worsening lower extremity abrasions with purulent drainage, increased erythema and tenderness -continue piperacillin-tazobactam IV as above -Wound evaluation. Their time and recommendations are appreciated Acute blood loss anemia, acute, present on admission, resolved -secondary to hematuria, onset 08/19 at 1800. Likely secondary to papillary urothelial cancer as below -s/p 4 units pRBCs -keep 3 units in house at all times Possible health care associated pneumonia, acute; resolving -Seen in health care setting 08/13/16. Sputum culture shows Staph aureus with sensitivities pending -Pt reported some dyspnea, nasal congestion, and sore throat -CXR shows new right perihilar interstitial pulmonary opacities -Viral PCR negative -Incentive spirometer -Stopped Zosyn 08/24/16 Hyponatremia, acute, present on admission, resolved. -mild -continue to monitor Elevated troponin, acute, present on admission; stable -likely demand ischemia from acute blood loss and active infections -holding ASA given acute blood loss anemia Leukocytosis, acute, present on admission, resolved. -secondary to above infections -treat as above Pain management, chronic -managed at home with methadone and hydromorphone, will continue per palliative care - Palliative care consulted and following. Their time and recommendations are appreciated. Diabetes mellitus type II, insulin dependent -diabetic diet -Lispro low dose correctional scale Hypothyroidism, chronic, present on admission -continue levothyroxine Status: Getting close to discharge but day-to-day. Pain Evaluation: Adequate Pain Control VTE Prophylaxis: SCDs VTE Mechanical Devices: Intermittant Pneumatic CD Resuscitation Status: CPR: Attempt Resuscitation Attending Statement The patient was seen and examined together with Dr. Baez on 08/24/2016 and I agree with the history, exam and plan as outlined in the note above. . Jose D Baez DO Aug 24, 2016 17:15 Shyam Andrews MD Aug 25, 2016 07:50
--- NOTE | 2016-08-24 17:57 | PROG NOTE ---
[address] [address] PROGRESS NOTE PATIENT: DIANA CROWELL : 1965 MR#: [id number] ADMIT: 08/19/2016 JOB ID: [id number] DATE: 08/24/2016 REASON FOR FOLLOWUP: Infected port catheter which had been used for chemotherapy. INTERVAL HISTORY: The patient reports that he is feeling relatively well this morning three days after the port was removed on Wednesday the . He is no longer having fevers, chills or sweats. He has no significant pain at the port removal site. No new pulmonary or GI complaints are noted. PHYSICAL EXAMINATION: The patient remains afebrile. Temp 36.7, pulse 79, respiratory rate 18, blood pressure 136/77, saturating well on 1.5 L. He is in no acute distress. He is obviously quite pale and continues to have eyes with pale conjunctivae. Oral cavity negative. Lungs relatively clear. Cardiac tones with no murmur. The site of the removed port in the right upper chest appears fairly benign. No new skin rash or peripheral stigmata of endocarditis. White blood cells 5500, platelet count 289,000, creatinine 0.51. Urinalysis without white cells. Schistosomal antibody pending. The cultures from the port have all grown MSSA. The blood cultures remain negative. IMPRESSION: This patient clearly had an infected port which was promptly removed. This is a difficult issue to deal with as his blood cultures are negative, but the port itself grew methicillin-sensitive Staphylococcus aureus. The duration of antimicrobial therapy is a bit unclear, but we have reviewed literature including the IDSA guidelines. These guidelines suggest that we will need serial blood cultures as well as a transthoracic and probably a transesophageal echo before we can make a definitive decision between two, four or six weeks of therapy. At a minimum, the patient will require two weeks of IV antibiotics which would take us through about September 03. RECOMMENDATIONS: 1. Transthoracic echo has been ordered and if that is not positive, we will probably move straight to a MANE. 2. Repeat blood cultures x2. 3. Will stop the Zosyn. 4. Will start cefazolin 2 g IV q.8 h. 5. I will continue to closely follow this complex patient with you. [facility]
--- NOTE | 2016-08-24 18:03 | DRSVH ---
[facility] [address] [place] [address] Echocardiogram Report Name: DIANA CROWELL te: 08/24/2016 Height: 73 in Hospital Exam Location: [facility] Weight: 288 lb Gender: Other BSA: 2.5 m2 : 1965 Age: 51 yrs BP: 136/77 mmHg Reason For Study: MURMUR Ordering Physician: HOSPITALIST [facility] Performed By: Tay Molina Referring Physician: KAYLEIGH DEE Interpretation Summary There is mild concentric left ventricular hypertrophy. Proximal septal thickening is noted. The left ventricle is normal in size. The ejection fraction is estimated to be 55-60%. Left ventricular wall motion is normal. The right ventricle is normal in size, thickness and function. The aortic valve is trileaflet. The aortic valve is moderately calcified. There is discrete nodular thickening of the left coronary cusp. There is no hemodynamically significant valvular aortic stenosis. No aortic regurgitation is present. The calcific nature of the aortic valve is the likely source of the patient's murmur. Remaining valvular structure and function are within normal limits. The aortic Sinus(es) of Valsalva are borderline dilated. The ascending aorta is mildly enlarged. There is no pericardial effusion. Compared to the previous study on 06/11/2016, the patient is no longer tachycardic. Procedure: A two-dimensional transthoracic echocardiogram with color flow and Doppler was performed. The study quality was technically adequate. Comparison is made with the echocardiogram of 06/11/16. The patient was in normal sinus rhythm during the exam. Left Ventricle: There is mild concentric left ventricular hypertrophy. Proximal septal thickening is noted. The left ventricle is normal in size. The ejection fraction is estimated to be 55-60%. Left ventricular wall motion is normal. Right Ventricle: The right ventricle is normal in size, thickness and function. Atria: The left atrium is mildly dilated. Right atrial size is normal. The interatrial septum is intact with no evidence for an atrial septal defect. Mitral Valve: The mitral valve is normal. There is trace mitral regurgitation. Aortic Valve: The aortic valve is trileaflet. The aortic valve is moderately calcified. There is discrete nodular thickening of the left coronary cusp. There is no hemodynamically significant valvular aortic stenosis. No aortic regurgitation is present. Tricuspid Valve: The tricuspid valve is not well visualized, but is grossly normal. Pulmonary artery pressures cannot be estimated because of the lack of a measurable TR jet velocity. Pulmonic Valve: The pulmonic valve is not well visualized. Great Vessels: The aortic Sinus(es) of Valsalva are borderline dilated. The ascending aorta is mildly enlarged. The pulmonary artery is normal size. The IVC is dilated (diameter is greater than 2.1 cm) yet it collapses greater than 50% with a sniff. This suggests a right atrial pressure of 8 mm Hg. Pericardium/ Pleura There is no pericardial effusion. There is no pleural effusion. MMode/2D Measurements & Calculations LVIDd: 4.8 cm RA long axis LVOT diam: 2.5 cm LVIDs: 3.3 cm LA A2 area: 25.2 cm AoV Opening FS: 31.4 % LA A4 area: 29.6 cm RA area EPSS: 0.32 cm LA length (vol) Ao root diam IVSd: 1.1 cm : 16.1 cm LVPWd: 1.2 cm LA vol: 102.4 ml RA vol asc Aorta Diam LA vol index : 49.0 ml RA Ao Arch Diam (Prox : 19.5 mm2 Trans): 3.2 cm IVC diam: 2.7 cm LV petersen. diameter/BSA LV sys. diameter/BSA TAPSE: 2.5 cm (cm/m^2): 1.9 (cm/m^2): 1.3 Doppler Measurements & Calculations Ao V2 max MV E max neto MV E/A: 1.9 PA V2 max : 212.0 cm/sec : 91.5 cm/sec Med Peak E' Neto : 62.4 cm/sec Ao max P.0 mmHg MV A max neto PA mean PG Ao mean P.6 mmHg : 47.4 cm/sec E/E' med: 9.8 : 0.93 mmHg LVOT Max Neto Lat Peak E' Neto : 86.0 cm/sec E/E' lat: 7.4 LIZZETTE(I,D): 2.5 cm E/e' average: 8.6 sev ratio: 0.50 MV dec time: 0.21 sec Ao V2 mean LV V1 max PG PA V2 mean : 147.2 cm/sec : 46.2 cm/sec Ao V2 VTI: 40.3 cmLV V1 VTI: 20.0 cm PA pr(Accel) LIZZETTE(V,D): 2.1 cm2 : 4.5 mmHg LIZZETTE indexed to BSA (cm^2/m^2): 1.0 Reading Physician:06:02 PM
--- NOTE | 2016-08-24 19:23 | NUR ---
P: REsp, Hemodynamics, GI, Pain I,E: Pt denies dyspnea, is on 2l O2 and sats mid 90's, he denies cough. VS are stable, UOP adequate. Pt has complained of nausea today and zofran was given X 3 with good effect, although I think pt is worried about the nausea worsening. He seems a lot better this evening and has color in his face and is more animated and taking sips of liquids. Pt has complained of pain throughout the day however, we have worked on a pain plan and this has been effective and pt is encouraged by his pain relief. Methadone has now been scheduled and will be given Q8 as ordered (it was previously ordered Q8 but not scheduled on the eMar). Pt took IV pain meds today until he felt he was able to take PO. Pt seems brighter this evening and is talking with his and appears more relaxed. Pt's would like to participate in wound care (right shoulder wound) as she will be doing the dressing changes at home. material handler 1st shift nurse agreed to assist with this for todays dressing.
[2016-08-24 20:00] VITALS: PULSE 76
[2016-08-25] VITALS (9 sets, daily range): BP systolic 131–150; BP diastolic 16–87; PULSE 79–86; RESP 14–20; O2SAT 95–97
[2016-08-25] MEDS: LORazepam 1 mg Tablet PO PRN ×4 (00:23→22:00)
[2016-08-25] MEDS: MetoCLOpramide 5 mg/mL 2 mL Inj IVPUSH PRN (00:24)
[2016-08-25] MEDS: HYDROmorphone 1 mg/mL Inj IVPUSH PRN ×3 (00:30→13:13)
[2016-08-25 03:45] LABS: EOSINOPHILS % (AUTO) 2.6 % (0-5); MONOCYTES % (AUTO) 21.6 % (4-12); Mean Corpuscular Hemoglobin 28.6 pg (27.0-35.0); NEUTROPHILS % (AUTO) 35.2 % (40-74); Platelet Count 266 bil/L (150-400)
[2016-08-25] MEDS: 0.9% Sodium Chloride 1,000 ML IV SCH ×2 (05:23→15:22)
--- NOTE | 2016-08-25 06:40 | NUR ---
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 Pain, Pt c/o Bladder pain 7-8 out of 10 about every 4 hours. Pt medicated with 2mg IV Dilaudid for pain every 4 hours. Pt also received one dose of Methadone during the night. Pt still having nausea w/o emisis, medicated with Reglan X1 dose and Haldol 1mg X1 dose with good relief of nausea. Pt slept well after dose of Haldol given, but easily arousable. No c/o chest pain, Tele SR 70-80s. No c/o SOB, O2 @ 1.5L humidified O2, with SpO2 sats 95-97%. VS stable and afebrile. Pt is still very pale in color.
[2016-08-25] MEDS: Insulin LISPRO 300 Unit/3 mL Inj SUBQ SCH ×4 (08:00→21:44)
[2016-08-25] MEDS: Pantoprazole 4 mg/mL 10 mL Inj IVPUSH SCH (08:02)
[2016-08-25] MEDS: Ondansetron 2 mg/mL 2 mL Inj IVPUSH PRN (08:03)
--- NOTE | 2016-08-25 10:12 | PCM.PALLBR ---
Palliative Care Recommendation Unfortunate 51-year-old gentleman, well-known to the palliative medicine service , with muscle invasive high-grade bladder urothelial carcinoma, status post chemotherapy and awaiting urologic surgical intervention, admitted with hematuria, severe anemia, fever, etc. and evidence of infected right chest access port. Palliative medicine consulted to assist with symptoms/pain management. Patient's Port-A-Cath was removed (08/21/2016) and he continues to be on IV antibiotics. Patient is scheduled to undergo surgery on August 31 with plan for an ileal conduit diversion. He is followed by Infectious Disease, Oncology and Urology. To determine antibiotic duration and to assess for endocarditis, a TTE was performed and is inconclusive, thus patient may require MANE. At present he will require IV antibiotics for at least two weeks (through about September 03). Summary of palliative recommendations: -Symptom management (Pain/other): Nausea: Patient is currently receiving ondansetron, metoclopramide and Haldol. Haldol 1mg IV every 6 hours PRN was started yesterday but nausea persists. Will start olanzapine 5mg PO this evening if the patient is not discharged. Pain: Continue with outpatient pain medication regimen - methadone 15mg PO every 8 hours and hydromorphone 8mg PO every 3 hours. Continue hydromorphone 1- 2mg IV every 4 hours for breakthrough pain. -DPOA/Advanced Directives/POLST- full code -Family/emotional support- excellent support from his Additional Medical Diagnoses with primary management by Hospitalist team include : Acute blood loss anemia, acute, POA Port infection, acute, POA Cellulitis bilateral, acute, POA Leukocytosis, acute, POA Hyponatremia, acute, POA Elevated troponin, acute, POA Pain management, chronic Diabetes, insulin dependent Hypothyroidism, chronic, POA Papillary urothelial carcinoma, chronic Problems: End of Life Preferences Full code Disposition Likely home when medically stable Resuscitation Status Resuscitation Status: CPR: Attempt Resuscitation POLST Updates/Changes Previous POLST?: No Total time 35 minutes; >50% face to face with patient and/or family, providing counselling regarding plans and recommendations, and in care coordination with his/her medical teams. Attending Statement Patient seen and examined with Dr. Stephen Ko. Symptom management reviewed including use of haloperidol or olanzapine for nausea if necessary. Pt is doing better.Documentation reviewed and is accurate.I have nothing to add. copies to: Lizzy Curry MD Palliative Brief Note Date of Service Aug 25, 2016 . Rounded on patient. Prior to visiting the records in the EMR were reviewed in detail and discussed case with the primary team. Patient reports continued nausea but it is a little improved from yesterday. He is able to tolerate some PO and has not had any episodes of vomiting. He states his pain is better controlled following scheduled methadone and rates his pain 3 out of 10 on the analog scale. He expresses increased anxiety and is requesting something stronger than his lorazepam. On examination the patient is alert and oriented, lying in bed in no acute distress. Cardiac tones with a soft systolic murmur. Lung sounds are clear bilaterally. Mild right upper quadrant tenderness on palpation. Intact, clean dressing over his right chest at previous site of catheter. Lower extremities are warm, left leg covered in elastic wrap and right lower extremity with a dry bandage over right pretibial area. Stephen Ko DO Aug 25, 2016 10:12 Ethel Romero MD Aug 30, 2016 09:06
--- NOTE | 2016-08-25 10:23 | PROG NOTE ---
[address] [address] PROGRESS NOTE PATIENT: DIANA CROWELL : 1965 MR#: [id number] ADMIT: 08/19/2016 JOB ID: [id number] DATE: 08/25/2016 INFECTIOUS DISEASE FOLLOWUP NOTE: REASON FOR FOLLOWUP: MSSA infection of right chest port catheter. INTERVAL HISTORY: The patient reports he is feeling gradually better. He has no fevers or chills overnight. He still has pain at the site where they removed the port. He is not significantly short of breath and has no chest pain, nausea, vomiting, or diarrhea. PHYSICAL EXAMINATION: Reveals an afebrile gentleman, temperature 36.4, pulse 85, respiratory rate 14, blood pressure 133/77, saturating pretty well on 1.5 L. He is pale with pale conjunctivae. Oral cavity negative. Mental status: Normal. Lungs: Relatively clear bilaterally. Cardiac tones without new murmur. Abdomen: Obese, soft, nontender. LABORATORIES: Include white count 5000, platelet count 266. Creatinine 0.53. AST and ALT are normal. Alk phos 232. Schistosoma antibody pending. Micro studies include positive port cultures from the 8th. All the blood cultures were negative. Followup blood cultures have also been done which also remain negative. The transthoracic echo showed no clear-cut evidence of endocarditis but was not definitive. IMPRESSION: This patient is doing relatively well. We have now transitioned his antibiotics to Ancef specifically for the MSSA port infection. There is some ambiguity in the guidelines about how long to treat this patient, and I think without a MANE and the followup blood cultures it will be difficult to know for certain. RECOMMENDATIONS: 1. MANE to be done later this week. 2. Continue with Ancef 2 g IV q.8 h. as optimal therapy. 3. We may discharge the patient later in the week if his MANE is negative and the followup blood cultures remain negative. Probable discharge antibiotic would be ceftriaxone 2 g IV once a day which could be used in a peripheral IV or a central line depending on logistics. 4. Will continue to closely follow this patient with you and eagerly await the results of the MANE and serial blood cultures.
--- NOTE | 2016-08-25 14:03 | PCM.PNMED ---
Subjective Date of Service Aug 25, 2016 Subjective This is a 51 year male with history of invasive high grade bladder cancer and resulting intermittent hematuria. Planned bladder resetion 08/31. Admitted for acute anemia, port infection, and cellulitis. Overnight the patient's nausea was well controlled. He denies associated review of systems including fever, chills, or pain. Discussed with Dr. Romero today from palliative care and they will try olanzapine or haloperidol. Exam Vital Signs Vital Sign - Last Date Time Temp Pulse Resp B/P Pulse Ox O2 Delivery O2 Flow Rate FiO2 08/25/16 09:49 36.4 85 14 133/77 96 Nasal Cannula 1.50 96 Intake and Output 08/24/16 08/24/16 08/25/16 Cumulative From/Thru 15:00 23:00 07:00 08/19/16 20:30 - 08/25/16 06:28 Intake Total 686 ml 1134 ml 08312 ml Output Total 1520 ml 2700 ml 39867 ml Balance -834 ml -1566 ml -9455 ml Intake Oral 486 ml 150 ml 3596 ml IV Total 200 ml 984 ml 6939 ml Packed Cells 300 ml Output Urine Total 1520 ml 2700 ml 06638 ml Emesis 200 ml # Bowel Movements 1 Exam General: Alert, Oriented X3, Cooperative, No acute Distress, improved from yesterday Chest & Lungs: Crackles in the bases bilaterally; otherwise clear to auscultation Cardiovascular: Regular rate and rhythm no murmurs rubs or gallops Abdomen: Soft, tender suprapubic, no rebound, Non-distended, normal bowel tones. Extremities: Mild pitting edema bilaterally, excoriations right lower legs with purulent drainage that are improving. Lab and Diagnostics Result Diagram: 08/25/16 0325 08/25/16 0325 X-Rays, CTs and MRIs PROCEDURE: X-RAY CHEST ONE VIEW, PORTABLE IMPRESSION: Left basilar atelectasis versus pneumonia. Please correlate with clinical data. Approved by: Lizzy Mays MD, PhD on 08/19/2016 at 21:45 PROCEDURE: X-RAY CHEST ONE VIEW, PORTABLE IMPRESSION: Stable left basal atelectasis or infiltrate. New right perihilar interstitial pulmonary opacities most consistent with infection. Right portacatheter has been removed. Approved by: Vincent Wilson M.D. on 08/21/2016 at 8:43 12-lead ECG Repeat EKG 08/21/16 showed normal sinus rhythm with no ST segment changes Assessment & Plan 51yoM with history of high grade papillary urothelial carcinoma s/p incomplete TURBT, DM2, and hyperlipidemia, that presented to [facility] with recurrent hematuria , increased fatigue and mild fevers Nausea/vomiting with anorexia; poa; ongoing -Pt being controlled with antiemetics. -Marinol started 08/24. -Palliative care is following: haloperidol and olanzapine trial. Elevated alkaline phosphatase, present on admission, ongoing - Alkaline phosphatase 321 on admission - GGT elevated with ALP - US abdomen showed sludge in gallbladder and some gallbladder wall thickening. No elevated AST, ALT, or total bili. Papillary urothelial carcinoma, chronic -finished chemotherapy 08/05 -Schistosoma antibody ordered and still pending -oncology and urology consulted as above -Palliative care consulted and following. Their time and recommendations are appreciated. -Surgery scheduled for outpatient Port infection, acute, present on admission, resolving -purulent discharge from port site. Port-a-cath removed -piperacillin-tazobactam, vancomycin started in ED and have now been discontinued. -Culture obtained from site and shows Staph aureus that is sensitive to oxacillin. -Stopped Zosyn per ID -Continue Ancef per ID -ID consulted and appreciate their recs Cellulitis bilateral, acute, present on admission; resolving -worsening lower extremity abrasions with purulent drainage, increased erythema and tenderness -Wound evaluation. Their time and recommendations are appreciated Acute blood loss anemia, acute, present on admission, resolved -secondary to hematuria, onset 08/19 at 1800. Likely secondary to papillary urothelial cancer as below -Stable H&H. -s/p 4 units pRBCs -keep 3 units in house at all times Possible health care associated pneumonia, acute; resolving -Seen in health care setting 08/13/16. Sputum culture shows Staph aureus with sensitivities pending -Pt reported some dyspnea, nasal congestion, and sore throat -CXR showed new right perihilar interstitial pulmonary opacities -Viral PCR negative -Incentive spirometer -Stopped Zosyn 08/24/16 Hyponatremia, acute, present on admission, resolved. -mild -continue to monitor Elevated troponin, acute, present on admission; stable -likely demand ischemia from acute blood loss and active infections -holding ASA given acute blood loss anemia Leukocytosis, acute, present on admission, resolved. -secondary to above infections -treat as above Pain management, chronic -managed at home with methadone and hydromorphone, will continue per palliative care - Palliative care consulted and following. Their time and recommendations are appreciated. Diabetes mellitus type II, insulin dependent -diabetic diet -Lispro low dose correctional scale Hypothyroidism, chronic, present on admission -continue levothyroxine Status: Getting close to discharge but day-to-day. VTE Prophylaxis: SCDs VTE Mechanical Devices: Intermittant Pneumatic CD Resuscitation Status: CPR: Attempt Resuscitation Attending Statement The patient was seen and examined together with Dr. Linton on 08/25/2016 and I agree with the history, exam and plan as outlined in the note above. . Pancho Linton DO Aug 25, 2016 10:27 Shyam Andrews MD Aug 26, 2016 18:34
[2016-08-25] MEDS ORDERED: CeFAZolin Inj 2 GM in IV Premix 1 EACH IV SCH (14:45)
--- NOTE | 2016-08-25 16:27 | NUR ---
Social Work Note: Continued Discharge Planning Data& Assessment: SW received phone call from [facility] explaining that pt is open with their services for RN 2x a week. notified. SW received order for [facility] HH RN 2x a week for 8 weeks. SW to fax clinicals to [phone] when medically ready, Phone contact number is: [phone]. SHANNAN to continue to follow. Plan: Anticipated discharge home via POV when medically ready with resume [facility]. SHANNAN to continue to follow. ANGEL Ortiz
[2016-08-25] MEDS: CeFAZolin Inj 2 GM in IV Premix 1 EACH IV SCH (16:30)
--- NOTE | 2016-08-25 17:27 | NUR ---
A/Ox3, makes needs known. 1 PA OOB with FWW, poor activity tolerance this shift. Sinus rhythm in 70's and 80's, tele removed this AM per MD order. LE non-pitting edema. Multiple wounds, dressings changed this shift, see wound care charting. Maintains 94% on room air, denies SOB. Full liquid diet. Pt reports nausea, resolved with IV zofran x1. Weathers cath draining dayanara urine with some sediment. Reports 8/10 bladder pain, PRN dilaudid given x3 this shift with effective results per pt. Pleasant and compliant, reports some anxiety, resolved with PRN lorazepam x2. Bilat SLs patent, NS at 100/hr running in R forearm. Plan to transfer to [facility] when bed is available.
[2016-08-26] MEDS: CeFAZolin Inj 2 GM in IV Premix 1 EACH IV SCH ×2 (00:26→09:07)
[2016-08-26] MEDS: 0.9% Sodium Chloride 1,000 ML IV SCH (00:26)
[2016-08-26] MEDS: Ondansetron 2 mg/mL 2 mL Inj IVPUSH PRN (00:32)
[2016-08-26 00:44] VITALS: BP 134/79; PULSE 87; RESP 18; O2SAT 93
--- NOTE | 2016-08-26 04:57 | NUR ---
PAIN Patient continues to have pain 7/10 in lower abdomen. Dilaudid and methadone provided for relief. Patient reports he has been sleeping better tonight than he has in some time. Appears to be resting comfortably at this time.
[2016-08-26 05:11] VITALS: BP 138/81; PULSE 96; RESP 18; O2SAT 94
[2016-08-26 06:10] LABS: EOSINOPHILS % (AUTO) 2.6 % (0-5); MONOCYTES % (AUTO) 19.3 % (4-12); Mean Corpuscular Hemoglobin 28.6 pg (27.0-35.0); Mean Corpuscular Volume 90.7 fL (81-100); NEUTROPHILS % (AUTO) 44.3 % (40-74); Platelet Count 267 bil/L (150-400)
[2016-08-26] MEDS: LORazepam 1 mg Tablet PO PRN (06:30)
[2016-08-26] MEDS: Insulin LISPRO 300 Unit/3 mL Inj SUBQ SCH ×2 (08:00→12:00)
[2016-08-26] MEDS: Pantoprazole 4 mg/mL 10 mL Inj IVPUSH SCH (09:01)
[2016-08-26 10:22] VITALS: BP 147/81; PULSE 78; RESP 16; O2SAT 93
--- NOTE | 2016-08-26 10:37 | PROG NOTE ---
[address] [address] PROGRESS NOTE PATIENT: DIANA CROWELL : 1965 MR#: [id number] ADMIT: 08/19/2016 JOB ID: [id number] DATE: 08/26/2016 REASON FOR FOLLOWUP: MSSA infection of a port catheter, now removed. INTERVAL HISTORY: Overnight, the patient has been free of fevers, chills, or sweats. He has no significant headache. No cough, nausea, vomiting, or diarrhea. He wishes to be discharged as soon as possible. The patient reports she is willing to return here for a transesophageal echo later in the week if it facilitates his discharge today and that he would prefer home IV antibiotics to complete his course of therapy. PHYSICAL EXAMINATION: Reveals an afebrile, pale gentleman no acute distress. Temp 36.7, pulse 96, respiratory rate 18, blood pressure 138/81. He is saturating well on 1 L. He is in no acute distress. Oral cavity negative. The port site on the right upper chest is benign. It is covered with a bandage. Lungs are clear. Cardiac tones with no new murmur. Abdomen benign. DIAGNOSTIC DATA: Labs include white count stable at 5500. Diff is relatively normal. Platelets 267,000. Creatinine 0.53. Alk phos 232. antibody pending. All blood cultures from admission and the followups from the are negative, but of course the cath tip and the abscess around the port itself grew MSSA. No new imaging is available except for an abdominal ultrasound done on the because of increasing LFTs which showed what appeared to be fatty liver and a minimally thickened gallbladder wall. IMPRESSION: This is a complex case of a patient with underlying bladder malignancy who is scheduled for bladder removal this coming Wednesday. He developed a port infection and that port was pulled out now 5 days ago without complication. The port infection was due to methicillin sensitive Staphylococcus aureus which was apparently not bacteremic. Because of concerns about possible endocarditis, we have asked for a transesophageal echocardiogram but so far, this has not been done due to scheduling issues. RECOMMENDATIONS: 1. A MANE should be performed before the end of this week. This could be done as an inpatient or an outpatient. 2. The patient is requesting discharge as soon as possible, and I think he could be sent out on either Ancef 2 g IV q.8 or 6 g of Ancef by continuous infusion which is probably simpler to be continued through the minimum of September 03, which would complete a full two weeks after the port was removed. If the MANE is negative, we can end all therapy on September 03 assuming the patient continues to be stable and I will wrap up his MSSA therapy. If on the other hand, his MANE were to be positive of course we need to continue with a longer course of antibiotics for six weeks or so depending on what the MANE showed. 3. I have written home IV antibiotics for Ancef 6 g a day by continuous infusion through at least September 03. 4. The patient should have a CBC every Wednesday. 5. The patient should follow up with me on September 02 in clinic unless of course he is in the hospital recovering from his cystectomy in which case I will see him here in the hospital. 6. I have asked the PICC team to place a midline catheter as we will probably only need IV access for 10 days or so. 7. This was discussed in detail with the teran team.
[2016-08-26] MEDS: HYDROmorphone 1 mg/mL Inj IVPUSH PRN (11:47)
--- NOTE | 2016-08-26 11:51 | PCM.DIMED ---
Jose D Baez DO 08/26/16 1151: Discharge Instructions Date of Service Aug 26, 2016 Dates of Hospitalization Aug 19, 2016 at 23:37 Discharge Diagnosis Discharge Diagnosis Papillary urothelial carcinoma, chronic Port infection, acute, present on admission, resolving Cellulitis bilateral, acute, present on admission; resolving Acute blood loss anemia Possible health care associated pneumonia Nausea/vomiting with anorexia Elevated alkaline phosphatase Hyponatremia Elevated troponin Leukocytosis Pain management Diabetes mellitus type II Hypothyroidism Medication Instructions Additional med instructions You will restart your home pain management regimen You will start daily antibiotic infusions at the [facility] as noted below We are also sending you home with Marinol, a THC medication to stimulate your appetite and hep with nausea. Please take only as directed. If you experience side effects you can decrease the dose or the number you take in a day. We are also giving you a prescription for Reglan (Metoclopramide) to be used as directed for nausea. Diet Discharge Diet: Other (as tolerated) Activity Discharge Activity: Other (as tolerated) Call your provider Call your provider for: Fever or Chills, Shortness of breath, Chest pain Patient Instructions Patient Instructions You were admitted due to blood in your urine and anemia that was caused by you bladder cancer. Your port was also infected and had to be removed so the infection could be treated. You also had cellulitis and possible pneumonia that was also treated. Your bladder removal is scheduled for Wednesday08/31/16 Due to the type of bacteria in your blood, you will need special imaging of your heart, called a MANE. IT IS SCHEDULED FOR TOMORROW (08/27) AT 915 Please follow up with the below schedule so you can complete your treatment for this severe infection. . Follow-up plan You will need to have a transesophageal echocardiogram; we are currently working to schedule this. YOUR MANE IS SCHEDULED FOR TOMORROW AT 9:15 IN THE [facility]. You will need to follow up with Dr. Fisher on Wednesday (08/28) at 2:00pm You will receive outpatient infusions of antibiotics scheduled to begin tomorrow and continue daily in the [facility], here in the hospital. You are scheduled for bladder resection on Wednesday08/31/16; please follow up with the instructions provided you by urology You will also need ot follow-up with Dr. Cameron on September 02 if you are not in the hospital. Please also follow-up with Dr. Romero for palliative once discharged Mid-level Provider (F9): HOMEHEALTHCARE-VISITING NURSES Additional Information Resume [facility] twice weekly for 8 weeks Shyam Andrews MD 08/26/16 1831: Discharge Instructions Attending's Statement The patient was seen and examined together with Dr. Baez on 08/26/2016 and I agree with the history, exam and plan as outlined in the note above. . Jose D Baez DO Aug 26, 2016 11:51 Shyam Andrews MD Aug 26, 2016 18:31
[2016-08-26] MEDS ORDERED: OLAN5TAB PO ×2 (11:53→15:57)
[2016-08-26 12:15] VITALS: BP 102/70; PULSE 93; RESP 16; O2SAT 91
--- NOTE | 2016-08-26 12:41 | PCM.DC.MED ---
Discharge Summary Date of Service Aug 26, 2016 Dates of Hospitalization Date of Hospital Admission Aug 19, 2016 at 23:37 Date of Discharge: Aug 26, 2016 Providers: Admitting Physician: Honey Armenta DO Primary Care Physician: Fausto Salvador MD Attending Physician: Honey Armenta DO Diagnosis at Time of Discharge Diagnosis at Time of Discharge Papillary urothelial carcinoma, chronic Port infection, acute, present on admission, resolving Cellulitis bilateral, acute, present on admission; resolving Acute blood loss anemia Possible health care associated pneumonia Nausea/vomiting with anorexia Elevated alkaline phosphatase Hyponatremia Elevated troponin Leukocytosis Pain management Diabetes mellitus type II Hypothyroidism Procedures XRay, CTs & MRIs PROCEDURE: X-RAY CHEST ONE VIEW, PORTABLE IMPRESSION: Left basilar atelectasis versus pneumonia. Please correlate with clinical data. Approved by: Lizzy Mays MD, PhD on 08/19/2016 at 21:45 PROCEDURE: X-RAY CHEST ONE VIEW, PORTABLE IMPRESSION: Stable left basal atelectasis or infiltrate. New right perihilar interstitial pulmonary opacities most consistent with infection. Right portacatheter has been removed. Approved by: Vincent Wilson M.D. on 08/21/2016 at 8:43 ECG 12 Lead Repeat EKG 08/21/16 showed normal sinus rhythm with no ST segment changes Cardiac Echo Impression Cardiac echo on 08/24/2016: Interpretation Summary There is mild concentric left ventricular hypertrophy. Proximal septal thickening is noted. The left ventricle is normal in size. The ejection fraction is estimated to be 55-60%. Left ventricular wall motion is normal. The right ventricle is normal in size, thickness and function. The aortic valve is trileaflet. The aortic valve is moderately calcified. There is discrete nodular thickening of the left coronary cusp. There is no hemodynamically significant valvular aortic stenosis. No aortic regurgitation is present. The calcific nature of the aortic valve is the likely source of the patient's murmur. Remaining valvular structure and function are within normal limits. The aortic Sinus(es) of Valsalva are borderline dilated. The ascending aorta is mildly enlarged. There is no pericardial effusion. Compared to the previous study on 06/11/2016, the patient is no longer tachycardic. Other Diagnostics Ultrasound abdomen on 08/24/2016: IMPRESSION: 1. Increased hepatic echogenicity noted likely related to fatty infiltration of the liver but other hepatocellular disease cannot be excluded. Recommend clinical correlation. 2. Gallbladder wall is prominent measuring up to 4.0 mm and gallbladder sludge is present. Recommend clinical correlation to exclude early developing cholecystitis. 3. Mild to moderate splenomegaly. Dictated by: Victorino Long Sid Interpreted: Elyse Soliz MD on 08/24/2016 at 16:53 Brief History Per admission H&P: 51yoM with history of high grade papillary urothelial carcinoma s/p incomplete TURBT, DM2, and hyperlipidemia, that presented to [facility] with recurrent hematuria , increased fatigue and mild fevers Patient and his are primary historians. gives majority of history as patient is fatigued. Patient with chemotherapy which ended recently on the . Since this time patient has been doing relatively well however began to have aches and chills over the prior weekend and missed his follow up oncology appointment to review the most recent surveillance CT scan. He has noted subjective fevers over the past 2-3 days as well. 08/19 patient began to have recurrent hematuria which became persistent and was brought into the ED for further evaluation. Upon initial exam patient was found to have purulent drainage from port and increased erythema and possible purulent drainage from lower extremity wounds. CBC was revealing for hemoglobin of 5.6 with ongoing hematuria. Of note, patient was seen in 06/2016 with partial resection of bladder tumor with subsequent requirement of 15 units pRBC and respiratory failure secondary to acute blood loss anemia. He is scheduled for further evaluation by urology on 08/21 to reassess for need of cystectomy. Hospital Course Patient presented on 08/20/2016 with hematuria and port infection. He received 4 units PRBC's in the hospital and was discharged with stable hemoglobin. The port was removed due to the infection and he was placed onto antibiotics. Infectious disease followed patient. A PICC line was placed on his last day in the hospital and he will be discharged on Ancef with followup with Dr. Cameron of infectious disease. On discharge MANE was scheduled for 08/27 in the morning which will determine duration of antibiotic treatment. During his hospital stay he had difficult to control nausea and vomiting. Palliative care discharged on Reglan and olanzapine for nausea. He will also be discharged on his home pain medication regimen. The patient is scheduled for followup with urology for papillary urothelial carcinoma with bladder resection scheduled for 08/31/2016. Nausea/vomiting with anorexia; POA, improved. -Patient discharged on Reglan and olanzapine. -Patient discharged on Marinol. Elevated alkaline phosphatase, present on admission, ongoing - GGT elevated with alk phos elevated. - US abdomen showed sludge in gallbladder and some gallbladder wall thickening. No elevated AST, ALT, or total bili. -Patient will need outpatient followup. Papillary urothelial carcinoma, chronic -Finished chemotherapy 08/05 -Schistosoma antibody ordered and still pending -Surgery scheduled on 08/31/2016. Port infection, acute, present on admission, resolving: -Port-a-cath removed during hospital stay. -Culture obtained from site showed Staph aureus that was sensitive to oxacillin. -Ancef to be continued as outpatient. -MANE scheduled for 08/27. Cellulitis bilateral, acute, present on admission; resolving -Patient had lower extremity abrasions and purulent drainage with increased erythema and tenderness -Continued monitoring as outpatient. Acute blood loss anemia, acute, present on admission, resolved -This was likely secondary to papillary urothelial cancer. He received 4 units pRBCs. -Stable H&H at discharge. Possible health care associated pneumonia, acute; resolving: -Pt reported some dyspnea, nasal congestion, and sore throat on admit. -CXR showed new right perihilar interstitial pulmonary opacities -He was treated with Zosyn. Hyponatremia, acute, present on admission, resolved. -This resolved at time of discharge. Elevated troponin, acute, present on admission; stable -Demand ischemia was from acute blood loss and active infections. -Stable throughout hospital stay. Pain management, chronic -Discharged on home pain regimen. Diabetes mellitus type II, insulin dependent -Well controlled blood glucose levels in hospital. -Continue home medications. Hypothyroidism, chronic, present on admission -Continued home dose of levothyroxine Exam Vital Signs (Last) Date Time Temp Pulse Resp B/P Pulse Ox O2 Delivery O2 Flow Rate FiO2 08/26/16 12:15 36.3 93 16 102/70 91 Room Air 08/26/16 10:22 1.00 08/25/16 09:49 96 Test 08/19/16 21:10 08/19/16 21:40 08/20/16 04:30 08/20/16 13:30 Lactic Acid Level 1.1mmol/L (0.4-2.0) Magnesium Level 1.9mg/dL (1.6-2.6) Pro-B-Type Natriuretic Peptide 296.4pg/mL (0-121) Urine Color Bloody (YELLOW) Urine Appearance Cloudy (CLEAR,HAZY) Urine pH 7.0 (5.0-8.0) Urine Specific [place] 1.020 (1.003-1.035) Urine Protein >300mg/dL (NEG,TRACE) Urine Glucose (UA) Negativemg/dL (NEGATIVE) Urine Ketones Negativemg/dL (NEGATIVE) Urine Occult Blood Large (NEGATIVE) Urine Nitrite Positive (NEGATIVE) Urine Bilirubin Negative (NEGATIVE) Urine Urobilinogen Normalmg/dL (NORMAL) Urine Leukocyte Esterase Small (NEGATIVE) Urine RBC Packed/hpf (0-2) Urine WBC 0-5/hpf (0-5) Urine Epithelial Cells 0/hpf (NONE-MOD) Urine Crystals None seen (NONE SEEN) Urine Bacteria Few/hpf (NONE-FEW) Urine Hyaline Casts None/lpf (NONE) Urine Granular Casts None seen (NONE SEEN) Urine Waxy Casts None seen (NONE SEEN) Urine Red Blood Cell Casts None seen (NONE SEEN) Urine White Blood Cell Casts None seen (NONE SEEN) Urine Mucus None seen (None Seen) Urine Trichomonas None seen (NONE SEEN) Urine Yeast None (NONE SEEN) Urinalysis Comment None Urine Culture Reflexed Indicated Myelocytes % 1% (0-0) Test 08/21/16 04:40 08/21/16 11:45 08/22/16 03:35 08/25/16 03:25 Band Neutrophils % 9% (1-5) Metamyelocytes % 1% (0-0) Troponin T 0.052ug/L (0.0-0.011) Vancomycin Level Trough 14.0mcg/mL Gamma Glutamyl Transpeptidase 301IU/L (0-65) Sodium Level 136mEq/L (134-144) Potassium Level 4.2mEq/L (3.5-5.2) Chloride Level 101mEq/L (97-108) Carbon Dioxide Level 26mmol/L (18-29) Blood Urea Nitrogen 8mg/dL (6-24) Creatinine 0.53mg/dL (0.76-1.27) Estimat Glomerular Filtration Rate 175mL/min (>59) Glucose Level 87mg/dL (60-99) Calcium Level 8.1mg/dL (8.5-10.1) Total Bilirubin 0.3mg/dL (0.0-1.2) Aspartate Amino Transf (AST/SGOT) 19U/L (0-50) Alanine Aminotransferase (ALT/SGPT) 7U/L (0-44) Alkaline Phosphatase 232U/L (25-150) Total Protein 5.5g/dL (6.4-8.4) Albumin 2.6g/dL (3.4-5.0) Procalcitonin 0.13ng/mL (0.00-0.08) Test 08/26/16 05:50 White Blood Count 5.5th/mm3 (3.8-10.1) Red Blood Count 3.22mil/mm3 (4.40-5.80) Hemoglobin 9.2g/dL (13.8-17.2) Hematocrit 29.2% (41.0-50.0) Mean Corpuscular Volume 90.7fL (81-100) Mean Corpuscular Hemoglobin 28.6pg (27.0-35.0) Mean Corpuscular Hemoglobin Concent 31.5% (32.0-37.0) Red Cell Distribution Width 16.3% (12.3-15.4) Platelet Count 267bil/L (150-400) Neutrophils (%) (Auto) 44.3% (40-74) Lymphocytes (%) (Auto) 30.3% (14-46) Monocytes (%) (Auto) 19.3% (4-12) Eosinophils (%) (Auto) 2.6% (0-5) Basophils (%) (Auto) 2.0% (0-3) Discharge Medications Discharge Medications Furosemide (Furosemide) 40 Mg Tablet 40 MG PO DAILY (Reported) Insulin Detemir (Levemir Flextouch) 100 Unit/1 Ml Insuln.pen 65 UNIT SQ DAILY ( Reported) Levothyroxine (Levothyroxine) 50 Mcg Tablet 50 MCG PO DAILYAC Prescribed by: TIGIST ALVA DO Methadone (Methadone) 5 Mg Tablet 15 MG PO Q8H Prescribed by: CONSTANZA LINTON DO Olanzapine (Olanzapine) 5 Mg Tablet 5 MG PO DAILY Prescribed by: LOLA MICHAELS DO Oxybutynin Chloride (Oxybutynin Chloride) 5 Mg Tablet 5 MG PO TID Prescribed by: DORITA L LOUIS, DO Potassium Chloride ER (Potassium Chloride ER) 20 Meq Tablet.er 20 MEQ PO DAILY ( Reported) TAKE WITH FOOD Sertraline HCl (Zoloft) 20 Mg/1 Ml Oral.conc 100 MG PO DAILY (Reported) As needed Alprazolam (Alprazolam) 1 Mg Tablet 1 MG PO HS PRN PRN For Anxiety (Reported) Dronabinol (Marinol) 5 Mg Capsule 5 MG PO TID PRN PRN For Bowel Movement Prescribed by: LOLA MICHAELS DO Hydromorphone (Hydromorphone) 8 Mg Tablet 8 MG PO Q3H PRN PRN Pain Prescribed by: DIPESH SIMPSON MD Lorazepam (Lorazepam) 0.5 Mg Tablet 0.5 MG PO TID PRN PRN For Anxiety or Agitation (Reported) Metoclopramide Inj (Metoclopramide Inj) 5 Mg/1 Ml Vial 5 MG PO Q6H PRN PRN For Nausea/Vomiting Prescribed by: LOLA MICHAELS, DO Additional med instructions You will restart your home pain management regimen You will start daily antibiotic infusions at the [facility] as noted below Followup Plan Follow-up plan You will need to have a transesophageal echocardiogram; this is scheduled for __ You will need to follow up with Dr. Fisher on Wednesday (08/28) at 2:00pm You will receive outpatient infusions of antibiotics scheduled to begin tomorrow and continue daily in the [facility], here in the hospital. You are scheduled for bladder resection on Wednesday08/31/16; please follow up with the instructions provided you by urology You will also need ot follow-up with Dr. Cameron on September 02 if you are not in the hospital. Please also follow-up with Dr. Romero for palliative once discharged Discharge Diet: Other (as tolerated) Discharge Activity: Other (as tolerated) Patient Instructions You were admitted due to blood in your urine and anemia that was caused by you bladder cancer. Your port was also infected and had to be removed so the infection could be treated. You also had cellulitis and possible pneumonia that was also treated. Your bladder removal is scheduled for Wednesday08/31/16 Due to the type of bacteria in your blood, you will need special imaging of your heart, called a MANE. We are currently working to get an appointment for Monday 08/28. Please follow up with the below schedule so you can complete your treatment for this severe infection. . Follow-up with PCP in: 1 week Provider: Haven Fisher MD Follow-up in: Other (August 28, 2016) Mid-level Provider: HOMEHEALTHCARE-VISITING NURSES Time spent Greater than 30 minutes was spent in preparation of discharge with greater than 50% of that time dedicated to patient counseling and coordination of care. . Attending Statement The patient was seen and examined together with Dr. Linton on 08/26/2016 and I agree with the history, exam and plan as outlined in the note above. . copies to: Fausto Salvador MD, Christopher DO Aug 26, 2016 12:41 Shyam Andrews MD Aug 26, 2016 18:33
[2016-08-26] MEDS ORDERED: METO5VIA3 IVPUSH (13:48)
[2016-08-26] MEDS ORDERED: DRON2.5C10 PO (13:48)
[2016-08-26] MEDS ORDERED: METH5TAB3 PO (14:39)
--- NOTE | 2016-08-26 14:51 | PCM.PALLBR ---
Palliative Care Recommendation Unfortunate 51-year-old gentleman, well-known to the palliative medicine service , with muscle invasive high-grade bladder urothelial carcinoma, status post chemotherapy and awaiting urologic surgical intervention, admitted with hematuria, severe anemia, fever, etc. and evidence of infected right chest access port. Palliative medicine consulted to assist with symptoms/pain management. Patient's Port-A-Cath was removed (08/21/2016) and he continues to be on IV antibiotics. Patient is scheduled to undergo surgery on August 31 with plan for an ileal conduit diversion. He continues to be followed by Infectious Disease, Oncology and Urology. Summary of palliative recommendations: 08/26/16-Pain- advise continuing the same dosing of methadone and hydromorphone. He should be given enough to get him through surgery since he will need to taper once out of post op pain. Nausea- improved. Would continue his olanzapine to help with anxiety and nausea for now. He finds his lorazepam only partially helpful and I would prefer not to increase this dose of 1 mg TID Bladder CA- scheduled for surg on 08/31 and has pre-op with Dr. Schuster on wednesday. Reviewed high protein intake until surgery. Follow up with me if possible coordinating with urology f/u post-op for his convenience and can decide on tapering of meds. His PCP Dr. Salvador is willing to manage his narcotis and benzos. Addn: TC to review concerns with Evelina aggarwal's . She wants nausea managed before discharge to maximize his nutrition and hydration befor his upcoming surgery on 08/31 -Symptom management (Pain/other): Nausea: Currently on ondansetron and metoclopramide, which have been ineffective. Primary team will trial Marinol for nausea. We will start Haldol 1mg IV every 6 hours as needed for nausea if Marinol is ineffective. Pain: Patient reports pain was controlled with his outpatient pain regimen but since the onset of his recent illness his pain has not been well controlled , possibly due to emesis and his inability to keep down the PO medications. Continue with outpatient pain medication regimen - methadone 15mg PO every 8 hours and hydromorphone 8mg PO every 3 hours. Continue hydromorphone 1-2mg IV every 4 hours for breakthrough pain. -DPOA/Advanced Directives/POLST- full code -Family/emotional support- excellent support from his Additional Medical Diagnoses with primary management by Hospitalist team include : Acute blood loss anemia, acute, POA Port infection, acute, POA Cellulitis bilateral, acute, POA Leukocytosis, acute, POA Hyponatremia, acute, POA Elevated troponin, acute, POA Pain management, chronic Diabetes, insulin dependent Hypothyroidism, chronic, POA Papillary urothelial carcinoma, chronic Problems: End of Life Preferences Full code Disposition Likely home when medically stable Resuscitation Status Resuscitation Status: CPR: Attempt Resuscitation POLST Updates/Changes Previous POLST?: No . Symptom management: Nausea, Pain Total time 25 minutes; >50% face to face with patient and/or family, providing counselling regarding plans and recommendations, and in care coordination with his/her medical teams. time includes discussion with pt and Dr. Baez and Dr. Mariely salinas med management and follow up I also spent an additional [ ] minutes counseling for advanced care planning with the patient/the patients family/the surrogate decision maker. copies to: Fausto Salvador MD Palliative Brief Note Date of Service Aug 26, 2016 . Patient had good nights sleep-?due to olanzapine. Pain is adequately controlled.. He feels he will do fine on his pain meds as prior to admit when home. He acknowledges he gets anxious here and that tends to escalate his fear of pain and need for meds. He also feels nausea better and energy better--walked in mao etc. Still some pain at port site-removed. O: site not undressed but no surrounding erythema and only slightly tender to pressure. mentation good walking with walker in mao. H/H stable stable, elevated alk phos albumin 2.6 culture-MSSA now on cephalothin Ethel Romero MD Aug 26, 2016 14:51
[2016-08-26] MEDS ORDERED: METO5VIA3 PO (15:46)
[2016-08-26] MEDS ORDERED: DRON5CAP PO (15:53)
--- NOTE | 2016-08-26 16:22 | NUR ---
Social Work Note: Discharge Data& Assessment: Per pt is medically ready to discharge. SHANNAN met with pt and pt at bedside to confirm discharge plan and assess for any unmet needs. Pt Alexis Knutson is a 51 year old male admitted on 08/19/2016 for port infection. Per pt is medically improved and ready to discharge home with [facility] RN. Pt and pt denies any other needs. DC paperwork faxed to [facility] and notified of pt discharge. All updated and agreeable to plan. No other discharge needs identified. Plan: Per pt is medically improved and ready to discharge home with [facility] RN. All updated and agreeable to plan. No other discharge needs identified. ANGEL Ortiz
[2016-08-26] MEDS ORDERED: CeFAZolin Inj 2 GM in IV Premix 1 EACH IV SCH (17:00)
--- NOTE | 2016-08-26 17:05 | NUR ---
Discharged at 1415. Pt left facility with his spouse in a wheelchair to their personal car en route to home. DC education, med list, and follow up paperwork given to pt and spouse. Pt medicated w 8 mg PO dilaudid for pain control. Pt left with all belongings. Answered all pt questions, pt and spouse communicated understanding. Addendum: 08/26/16 at 1707 by DARLENE SUE RN CORRECTION: pt was discharged at 1615, not 1415
--- NOTE | 2016-08-27 00:51 | DRSVH ---
PROCEDURE: X-RAY PICC LINE PLACEMENT BY NURSE ([id number]) INDICATIONS: DC PLANNING HOME IV MEDS COMPARISON: None. FINDINGS: PICC was placed by the intravenous therapy team from the left side. Fluoroscopic spot radha m demonstrates tip projected over the cavoatrial junction. IMPRESSION: Tip of PICC projected over the cavoatrial junction. Dictated by: Victorino Long [facility] Interpreted: Elyse Soliz MD on 08/26/2016 at 14:03 Approved by: Elyse Soliz M.D. on 08/27/2016 at 0:49
--- NOTE | 2016-08-27 08:42 | NUR ---
HOME HEALTH FOLLOW UP-- Received phone call from Nano at [facility] [phone] and she was needing additional documentation from us in order to open with patient today. Faxed H&P,Discharge Summary,and resumption orders to [phone]. Noted on cover sheet patient is scheduled for MANE this morning at 9 am. Updated TECHNICAL TRAINER Addendum: 08/27/16 at 0921 by PHONG THOMAS CM Called and spoke with Dasia at [facility] [phone] and let her know patient is needing home IV ABX and would need a start today. Gave access and read written orders to her. She is currently running a benefit check and working on getting and extra nurse in. She will call back as soon as she has all information needed for start. Updated TECHNICAL TRAINER Addendum: 08/27/16 at 1045 by PHONG THOMAS CM Dasia from [facility] [phone] called and patient is covered at 100% for home infusion and [facility] is preferred provider. Dasia is reaching out to the patient and then she does have an environmental tech nurse will make sure someone is out today to give next dose of ABX. Updated TECHNICAL TRAINER
--- NOTE | 2016-08-27 09:14 | NUR ---
Social Work: POST DISCHARGE NOTE D: LOBSTER FISHERMAN received notification from RN Instrument Specialist. She received notification from the patient's stating that she spoke with [facility] who is stating they cannot do the pt's IV ABX. LOBSTER FISHERMAN confirmed that home health companies do not provide this service and pt would need a home infusion company to supply medications and do teaching. RN Instrument Specialist pulled pt's medical records and notes from infection disease ordering home infusion q24 continuous infusion through September 03, 2016. LOBSTER FISHERMAN spoke with discharging provider who agrees that the pt will need home infusion for this abx schedule. He will amend discharge orders and place order for LOBSTER FISHERMAN to coordinate home IV ABX. LOBSTER FISHERMAN placed telephone call to the patient's to discuss abx. She does not have a preference for home infusion companies. They live in [place] and will need a company who can service the patient today. She is very concerned about the pt and his care. LOBSTER FISHERMAN provided her with the information for the patient complaint hotline along with the patient advocate information. LOBSTER FISHERMAN informed her that she would contact her once home infusions had been arranged and to provide more information. LOBSTER FISHERMAN requested [facility] make referral to [facility] as they service [facility]; [facility] has provided referral and they are running pt's insurance benefits. A: Pt who requires home IV ABX. P: Pt is discharged home and requiring home IV ABX; [facility] is reviewing to determine if they can accept the patient. LOBSTER FISHERMAN to continue to work on coordinating pt's home infusions. ANGEL Yarbrough Addendum: 08/27/16 at 1048 by YADI EVANGELISTA LOBSTER FISHERMAN spoke with Tania from [facility]; they have run pt's insurance benefit. [facility] [place]. They are working on getting a nurse out to see the patient today and will contact the patient's to schedule. 's contact information provided to [facility]. LOBSTER FISHERMAN left message for pt's to provide the aforementioned information and requested return phone call.
== END 2016-08-26 16:30 | disposition home or self-care (01) | DRG 314 ==
LOC: SED 20:27 → PCC 23:37
PROVIDERS: ADMIT Internal Medicine; ATTEND Internal Medicine
PROC: 30233N1 Transfusion of Nonautologous Red Blood Cells into Peripheral Vein, Percutaneous Approach (ICD-10-PCS; 2016-08-19)
PROC: 02PY33Z Removal of Infusion Device from Great Vessel, Percutaneous Approach (ICD-10-PCS; 2016-08-20)
PROC: 30233N1 Transfusion of Nonautologous Red Blood Cells into Peripheral Vein, Percutaneous Approach (ICD-10-PCS; 2016-08-20)
PROC: 0JPT0XZ Removal of Tunneled Vascular Access Device from Trunk Subcutaneous Tissue and Fascia, Open Approach (ICD-10-PCS; principal; 2016-08-20 15:00)
DX: T80.212A Local infection due to central venous catheter, initial encounter (principal); J18.9 Pneumonia, unspecified organism; D62 Acute posthemorrhagic anemia; L03.116 Cellulitis of left lower limb; L03.115 Cellulitis of right lower limb; E87.1 Hypo-osmolality and hyponatremia; I24.8 Other forms of acute ischemic heart disease; Z68.41 Body mass index [BMI] 40.0-44.9, adult; R31.9 Hematuria, unspecified; B99.9 Unspecified infectious disease; E11.9 Type 2 diabetes mellitus without complications; Z79.4 Long term (current) use of insulin; E03.9 Hypothyroidism, unspecified; C67.9 Malignant neoplasm of bladder, unspecified; Z92.21 Personal history of antineoplastic chemotherapy; E78.5 Hyperlipidemia, unspecified; E66.01 Morbid (severe) obesity due to excess calories; B95.61 Methicillin susceptible Staphylococcus aureus infection as the cause of diseases classified elsewhere; Y95 Nosocomial condition

== ENCOUNTER 2016-08-31 05:52 | Inpatient (IN) | payer OTHER ==
--- NOTE | 2016-08-28 09:51 | PCM.ANEPRE ---
Anesthesia Pre-Op Review Reason for Review: recent hospital admission/ port infection-cellulitis Additional Comments 51 M with hypothyroidism, DM and persistent hematuria and at times life threatening anemia related to a bladder malignancy. Please note that this patient has had life threatening hematuria leading to an almost cardiac arrest in 05/29. His most recent hospitalization was one week ago when he had an infected port and hct of 17. He received 4 U PRBC's during the admission. At the time he had a slight troponin leak, which was attributed to demand ischemia in the setting of very low hct and sepsis. His TTE at the time was unremarkable. He was evaluated by Dr. Fausto Cameron of infectious disease who ordered a MANE which was to be done yesterday to rule out endocarditis. This MANE was cancelled and rescheduled for the day after surgery. I spoke with him today ) with regards to the indication of the MANE and whether it should be done prior to surgery. He indicates that it does not need to be done prior to surgery because his TTE was unremarkable and his hemodynamics are wnl. He states the MANE was only ordered to complete the work-up and rule out endocarditis and therefore duration of the treatment with antibiotics, but that if he did have endocarditis on the MANE in the setting of normal heart function and bladder malignancy which is a threat to his life, Dr. Cameron would still recommend proceeding with surgery. On his recent admission, he did have a cxr with a new opacity in the lung. Please assess pulmonary status on the day of surgery. In short, this is a 51 M with life threatening persistent anemia related to hematuria from his bladder malignancy scheduled for a radical cystectomy and prostatectomy and ileal loop by Dr. Fisher with Dr. Curry assisting. He is certainly a high risk patient and had massive bleeding after a TURBT and this is a higher risk surgery. With that being sad, this surgery appears to be quite medically necessary and I can't think of any further work-up that should be done at this time pending evaluation in person on the day of surgery by the primary anesthesiologist. While he has not had a stress test, he certainly did well with life threatening hemorrhage after his TURBT at the end of 05/29, which is a significant stress test. He should have CBC, CMP, PT/PTT, INR drawn on the morning of the surgery as well as 2 u PRBC's typed and crossed. He is at risk for intraop bleeding and would likely benefit from a-line and very good IV access. The anesthesiologist will discuss the r/b/a of a TEP on day of surgery. Alejandro Baer MD Aug 28, 2016 09:51
[~2016-08-31] VITALS: Ht 185.4 cm; Wt 128.2 kg
[2016-08-31] VITALS (30 sets, daily range): BP systolic 68–166; BP diastolic 51–83; PULSE 88–104; RESP 9–20; O2SAT 94–100
[~2016-08-31 05:52] MED LIST changes: +ALPR1TAB7 PO; -ASPI-973 PO; -DIPH25CA6 PO; +DRON5CAP PO; -FERR-74 PO; +FURO40TA4 PO; -Fentanyl TOPICAL; -GABA-502 PO; -GABA300C PO; -LORA-303 PO; +LORA0.5T PO; +Lactated Ringer's 1,000 ML IV ONE; +METO5VIA3 PO; +OLAN5TAB PO; +POTA-62 PO; -SENN-133 PO; +SERT20OR PO; -SERT50TA9 PO; -SODI1TAB2 PO; -TRAZ-115 PO
[2016-08-31] MEDS ORDERED: cefTRIAXone Inj 1,000 MG in Dextrose 5% Minibag Plus 50 ML IV ONE (06:00)
[2016-08-31] MEDS ORDERED: metroNIDAZOLE Inj 1,000 MG in IV Premix 1 EACH IV ONE (06:00)
[2016-08-31] MEDS ORDERED: Lactated Ringer's 1,000 ML IV ONE ×7 (06:16→13:30)
[2016-08-31 06:49] LABS: Mean Corpuscular Hemoglobin 28.5 pg (27.0-35.0); Mean Corpuscular Volume 89.4 fL (81-100)
[2016-08-31] MEDS ORDERED: 0.9% Sodium Chloride 1,000 ML IV ONE (07:00)
[2016-08-31 07:11] LABS: INR 0.94 ratio
[2016-08-31] MEDS ORDERED: CEFA1VIA3 IV (07:19)
[2016-08-31] MEDS ORDERED: INSU200I SQ (07:19)
[2016-08-31] MEDS ORDERED: EPHEDrine Sulfate 50 mg/mL Inj IVPUSH PRN (08:55)
[2016-08-31] MEDS ORDERED: Lactated Ringer's 1,000 ML IV SCH (08:55)
[2016-08-31] MEDS ORDERED: Ondansetron 2 mg/mL 2 mL Inj IVPUSH PRN ×2 (08:55→10:45)
[2016-08-31] MEDS ORDERED: fentaNYL-PF 50 mCg/mL 2 mL Inj IVPUSH PRN ×2 (08:55→10:45)
[2016-08-31] MEDS ORDERED: Phenylephrine 10,000 mCg/mL Inj IVPUSH PRN (08:55)
[2016-08-31] MEDS ORDERED: MetoCLOpramide 5 mg/mL 2 mL Inj IVPUSH PRN (08:55)
[2016-08-31] MEDS ORDERED: Lactated Ringer's 500 ML IV PRN (08:55)
[2016-08-31] MEDS ORDERED: Dexamethasone 4 mg/mL Inj IVPUSH PRN (08:55)
[2016-08-31] MEDS ORDERED: HYDROmorphone 1 mg/mL Inj IVPUSH PRN (08:55)
--- NOTE | 2016-08-31 08:55 | PCM.HPANE ---
Patient Data Date of Service: Aug 31, 2016 (07) Surgeon Admitting Provider: Attending Provider:Haven Fisher MD Primary Care Physician:Fausto Salvador MD Other Provider:Joan Ely Anesthesia Reason for Visit Bladder Cancer Ht/WT & BMI Height (Feet): 6 Height (Inches): 1.00 Weight (Kilograms): 128.000 Body Mass Index 37.00 Allergies Coded Allergies: fentanyl (Verified Adverse Reaction, Intermediate, Delirium, 08/20/16) Past Anesthesia History Anesthesia History: Denies:: Abnormal Airway, Anesthesia Reactions, Difficult Intubation Diabetes History Hx Diabetes?: Yes (insulin) Type of Diabetes: Type I Glycemic Control: Insulin Dependent Current Bedside Blood Glucose: 78 MRSA MRSA: No Medications Home Meds Incl Beta April: No Active Scripts Olanzapine 5 Mg Tablet5 Mg PO DAILY #30 TABLET Ref 0 Prov:Thomas Worthington DO 08/26/16 Dronabinol (Marinol)5 Mg Capsule5 Mg PO TID PRN For Bowel Movement #90 CAPSULE Ref 0 Prov:Thomas Worthington DO 08/26/16 Metoclopramide Inj 5 Mg/1 Ml Vial5 Mg PO Q6H PRN For Nausea/Vomiting #60 VIAL Prov:Thomas Worthington DO 08/26/16 Methadone 5 Mg Rimnwc35 Mg PO Q8H #0 TABLET Prov:Pancho Linton DO 08/26/16 Hydromorphone 8 Mg Tablet8 Mg PO Q3H PRN Pain #60 TABLET Ref 0 Prov:Daniel Benson MD 07/23/16 Levothyroxine 50 Mcg Gsymrd80 Mcg PO DAILYAC 14 Days Prov:Katherine Martinez DO 07/19/16 Oxybutynin Chloride 5 Mg Tablet5 Mg PO TID #90 TABLET Prov:Luci Brown DO 06/27/16 Reported Medications Insulin Lispro (Humalog Kwikpen)200 Unit/Ml (3 Ml) Insuln.pen20 Unit SQ TIDWM 08/31/16 Cefazolin Sodium (Cefazolin IV)1 Gm Vial6 Gm IV Q24H Ref 0 08/31/16 Furosemide 40 Mg Qefcou02 Mg PO DAILY 08/20/16 Potassium Chloride ER 20 Meq Tablet.er20 Meq PO DAILY Ref 0 TAKE WITH FOOD 08/20/16 Insulin Detemir (Levemir Flextouch)100 Unit/1 Ml Insuln.pen65 Unit SQ DAILY 08/20/16 Lorazepam 0.5 Mg Tablet0.5 Mg PO TID PRN For Anxiety or Agitation Ref 0 08/20/16 Alprazolam 1 Mg Tablet1 Mg PO HS PRN For Anxiety Ref 0 08/20/16 Sertraline HCl (Zoloft)20 Mg/1 Ml Oral.lxmn904 Mg PO DAILY #1 BOTTLE Ref 0 08/20/16 Discontinued Reported Medications Ondansetron 4 Mg Tablet4 Mg PO PRN For Nausea 08/20/16 Discontinued Scripts Aspirin 81 Mg Rqzrew53 Mg PO DAILY #60 Prov:Daniel Benson MD 07/23/16 History History of ENT Problems?: No HEENT History: Denies:: Abnormal Airway Cataracts Difficult Intubation Dysphagia Hearing Problem Sinus Problem TMJ Denture Type: None Teeth Condition: Within Normal Limits Hx of Heart Problems?: No Cardiovascular History: Positive for:: Edema (currently ) Denies:: AICD Abdominal Aortic Aneurism Atrial Fibrillation Cardiac Surgery Chest Pain Congestive Heart Failure Heart Murmur Hypertension Irregular Heartbeat Pacemaker Rheumatic Fever Thrombophlebitis Valvular Heart Disease Other Cardiac History: infected portacath removed 08/2016- PICC line placed for ongoing ABX tx Hx of Respiratory Problem?: No Respiratory History: Positive for:: Pneumonia Denies:: Asthma COPD Chest Surgery Cough Dyspnea Emphysema Hemoptysis Oxygen Administration Pulmonary Embolism Tuberculosis Use of C-PAP Machine Hx Neurologic Problems?: Yes Neurological History: Positive for:: Headaches (migraines from high pitched noise) Denies:: Alzheimer's Disease CVA Dementia Dizziness Parkinson's Disease Seizures Hx of GI Problems?: Yes Hx of Problems?: Yes Genitourinary History: Denies:: HX of Hemodialysis Kidney Stones Urinary Tract Infection HX of Peritoneal Dialysis: No Other Pertinent History: bladder cancer current admission problem- hematuria/spasms Male Hx: Denies:: Prostate Problems Scrotal Mass Testicular Surgery Skin History: Denies:: History Skin Disorders? Pressure Ulcers Hx Musculoskeletal Problems?: No Hx of Psycho/Social Problems?: Yes Psycho Social History: Positive for:: Anxiety (newly on lorazepam ) Denies:: Bipolar Disorder Hx Depression Suicide Attempt Hx Surgeries?: Yes (shoulder surgery 11/28, cystoscopy 08/01/15) Hx Any Other Health Problems?: Yes Other History: Positive for:: Cancer (bladder) Hospitalization Thyroid Disease (hypothyroid) History Blood Transfusions: Positive for:: Blood Transfusions Denies:: Blood Transfuse Reaction Hx Diabetes: Yes (insulin)Bedside Blood Glucose: 78 Hx Alcohol Use: Yes (no current use)Hx Substance Use: No Smoking Status: Never Smoker Have You Smoked inLast 12 mo: No Stop/Bang P-Blood Pressure: treated: Yes B- Body Mass Index > 35 kg/m2: Yes A- Age over 50: Yes N- Neck Large Circumference: No G- Gender Male: Yes Risk Assessment Category Category 1A: Patient has history of documented sleep apnea, and HAS NOT received any narcotic, sedative or anesthesia administration during this stay. Category 1B: Patient has history of documented sleep apnea, and HAS received any narcotic , sedative or anesthesia administration during this stay Category 2: Patient has SUSPECTED Obstructive Sleep Apnea, and HAS received any narcotic , sedative or anesthesia administration during this stay. Category 3: Patient has SUSPECTED Obstructive Sleep Apnea and HAS NOT received narcotic, sedative or anesthesia administration during this stay. Category 4: Outpatient in Procedural Areas with known sleep apnea or who screen positive for High Risk via the STOP/BANG questionnaire. Exam Exam Vital Signs Vital Signs Date Time Temp Pulse Resp B/P Pulse Ox O2 Delivery O2 Flow Rate FiO2 08/31/16 06:18 36.1 96 20 101/51 94 Room Air General Appearance: Alert, Oriented X3, Cooperative, No Acute Distress HEENT/AIRWAY: MP 3 Lungs: Clear to Auscultation Heart: Exam Unremarkable Meds/Labs/Diagnostics Admission Meds Current Medications Lactated Ringer's (Lr) 1,000 ml @ ud STK-MED ONCE IV Last administered on 08/31 06:16; Start 08/31/16 at 06:16; Stop 08/31/16 at 06:18; Status DC Dextrose/Water 50 ml 50 ml STK-MED ONCE .ROUTE Last administered on 08/31/16 07:44; Start 08/31/16 at 07:28; Stop 08/31/16 at 07:33; Status DC Sodium Chloride (Normal Saline) 1,000 ml @ ud STK-MED ONCE IV Last administered on 08/31/16 07:00; Start 08/31/16 at 07:00; Stop 08/31/16 at 07:45 ; Status DC Bedside Blood Glucose: 78 Labs Test 08/31/16 06:44 White Blood Count 7.8th/mm3 (3.8-10.1) Red Blood Count 3.12mil/mm3 (4.40-5.80) Hemoglobin 8.9g/dL (13.8-17.2) Hematocrit 27.9% (41.0-50.0) Mean Corpuscular Volume 89.4fL (81-100) Mean Corpuscular Hemoglobin 28.5pg (27.0-35.0) Mean Corpuscular Hemoglobin Concent 31.9% (32.0-37.0) Red Cell Distribution Width 16.0% (12.3-15.4) Platelet Count 196bil/L (150-400) Prothrombin Time 10.0sec (8.1-12.5) Prothromb Time International Ratio 0.94ratio Activated Partial Thromboplast Time 26.6sec (22.8-33.0) Sodium Level 136mEq/L (134-144) Potassium Level 5.0mEq/L (3.5-5.2) Chloride Level 100mEq/L (97-108) Carbon Dioxide Level 24mmol/L (18-29) Blood Urea Nitrogen 22mg/dL (6-24) Creatinine 0.60mg/dL (0.76-1.27) Estimat Glomerular Filtration Rate 152mL/min (>59) Glucose Level 73mg/dL (60-99) Calcium Level 8.8mg/dL (8.5-10.1) Total Bilirubin 0.2mg/dL (0.0-1.2) Aspartate Amino Transf (AST/SGOT) 28U/L (0-50) Alanine Aminotransferase (ALT/SGPT) 10U/L (0-44) Alkaline Phosphatase 232U/L (25-150) Total Protein 7.2g/dL (6.4-8.4) Albumin 2.9g/dL (3.4-5.0) Plan Impression Patient chart reviewed, patient interviewed and anesthestic plan with risks, benefits, and alternatives discussed, and informed consent obtained. ASA Physical Status: ASA3 Severe Disease (chronic pain on narcotics) Anesthetic Support Modalities: Arterial Line Anesthetic Plan: GA, Epidural Bene/Risks/Altern/Consents: Yes HP Complete Prior to Induction: Yes Chuck Gutierrez MD Aug 31, 2016 08:55
[2016-08-31] MEDS ORDERED: EPHEDrine Sulfate 50 mg/mL Inj IV PRN (10:45)
[2016-08-31] MEDS ORDERED: fentaNYL 2 mCg/mL-Bupiv 0.125% 100 ML in IV Premix 1 EACH EPIDURAL SCH (10:45)
[2016-08-31] MEDS ORDERED: Atropine 1 mg/mL Inj IVPUSH PRN (10:45)
[2016-08-31] MEDS ORDERED: fentaNYL 2 mCg/mL-Bupivicaine 0.125% 100 mL Premix EPIDURAL ONE (11:00)
--- NOTE | 2016-08-31 14:34 | PCM.ANEP1 ---
Post Anesthesia PACU Phase 1 Assessment Vital Signs Vital Signs Date Time Temp Pulse Resp B/P Pulse Ox O2 Delivery O2 Flow Rate FiO2 08/31/16 14:31 89 15 131/61 100 Simple Mask 8 08/31/16 14:25 89 12 100 Simple Mask 8 166/74 08/31/16 14:15 88 10 161/78 100 Simple Mask 8 08/31/16 14:10 90 10 119/83 100 Simple Mask 8 08/31/16 14:05 92 12 141/72 100 Simple Mask 8 08/31/16 14:00 92 11 136/77 100 Simple Mask 8 08/31/16 13:55 90 9 136/69 100 Simple Mask 8 08/31/16 13:53 36.8 90 9 134/65 100 Simple Mask 8 Anesthetic Administered: GA, Epidural Level of Alertness: Sleepy, easy to arouse FRITZ's with Equal Strength: Yes Pain: Yes Nausea or Vomiting: No CV Function & Hydration Stable: Yes Airway Device: Oxygen Delivery: Simple Mask Lungs: Clear to Auscultation PACU Phase 2 Assessment Complications: No Patient Instructions Provided: N/A Chuck Gutierrez MD Aug 31, 2016 14:34
[2016-08-31] MEDS: 0.9% Sodium Chloride 250 ML IV SCH ×2 (14:35→23:40)
--- NOTE | 2016-08-31 15:24 | DRSVH ---
PROCEDURE: X-RAY KUB ([id number]) INDICATIONS: stents TECHNIQUE: One view of the abdomen acquired. COMPARISON: Outside Film, CT, CT ABD PELVIS WO CON, 06/08/2016, 15:27. FINDINGS: Surgical changes and devices: Bilateral ureteral stents are present. There likely is interval placem ent of diverting ureterostomy. Postoperative changes throughout the pelvis are present. Multiple murillo rgical clips, probable endovascular coiling and skin hong are seen overlying the pelvis, which may represent cystectomy. There may be a drainage catheter overlying the left pelvis and right pelvis. Bowel: Bowel gas pattern is not well assessed on this exam. No air-filled distended small bowel loop s are evident. Soft tissues: No suspicious abdominal calcifications. Visualized solid organ contours appear normal in size. Bones: No suspicious bony lesions. Age-appropriate degenerative changes are present. IMPRESSION: Postoperative changes of the abdomen and pelvis with ureteral stents and probable uretero stomy. Dictated by: Senthil Sandy M.D. on 08/31/2016 at 14:20 Approved by: Senthil Sandy M.D. on 08/31/2016 at 14:22
--- NOTE | 2016-08-31 16:39 | PCM.CHPMED ---
Subjective Date of Service: Aug 31, 2016 Primary Physician: Admitting Physician: Primary Care Physician: Fausto Salvador MD Attending Physician: Haven Fisher MD Chief Complaint: Chief Complaint: co-manage for medical issues in post-op patient History of Present Illness: Today underwent radical cystectomy and prostatectomy and ileal loop for his bladder cancer. Review of Systems: Not obtainable [facility] Past Medical History Recent admission August 19- with: Acute blood loss anemia due to hematuria due to his papillary urothelial carcinoma Port infection with MSSA resulting in removal of port and now on outpatient IV Ancef therapy Possible healthcare associated pneumonia Nausea and vomiting with anorexia Elevated alkaline phosphatase Hyponatremia Elevated troponin felt to be demand ischemia Other past medical history according to the August 19 history and physical: Acute respiratory failure requiring intubation secondary to hemorrhagic shock Cardiac arrest (her near cardiac arrest) High-grade papillary urothelial carcinoma with severe hematuria Acute blood loss anemia requiring 15 units packed red blood cells plus FFP plus cryoprecipitate Diabetes mellitus type II Hypothyroidism Hyperlipidemia Bedside Blood Glucose: 136 Surgical History Left shoulder arthroscopy Transurethral resection of bladder tumor May 2016 Home Medications According to Dr. Cameron he is currently on Ancef 2 g IV every 8 hours According to his discharge summary he is also on following: Furosemide 40 mg daily Determir insulin 65 units daily Levothyroxine 50 g daily Methadone 15 mg every 8 hours Olanzapine 5 mg daily Oxybutynin 5 mg 3 times a day Potassium chloride 20 mEq daily Sertraline 100 mg daily Alprazolam, 1 mg bedtime when necessary anxiety Dronabinol 5 mg 3 times a day when necessary bowel movement hydromorphone 8 mg every 3 hours when necessary pain Lorazepam 0.5 mg 3 times a day when necessary anxiety Metoclopramide 10 mg by mouth every 6 hours when necessary nausea or vomiting Allergies: Coded Allergies: fentanyl (Verified Adverse Reaction, Intermediate, Delirium, 08/31/16) had fentanyl during his last procedure and tolerated fine. dr broderick assessed and doesnt believe it to be a true allergy. patient told him twitching with the patch. Family History Family History According to his recent history physical he denies any family history of malignancies, pulmonary disease, or heart disease Social History Hx Alcohol Use: Yes (no current use)Hx Substance Use: NoHx Tobacco Use: No Smoking Status: Never Smoker Exam Vital Signs Vital Sign - Last Date Time Temp Pulse Resp B/P Pulse Ox O2 Delivery O2 Flow Rate FiO2 08/31/16 16:15 93 10 120/62 100 OxyMask 8 08/31/16 16:05 36.5 Additional Information: Currently in the PACU and still sedated, does arouse to voice and answers simple questions but quickly falls back asleep Skin: quite pale HEENT: Unremarkable Neck: Thick but no apparent JVD and carotids 2+ Heart: Regular, distant, no murmurs heard Lungs: Upper airway noise, clear anteriorly and laterally although decreased breath sounds Abdomen: Soft, seems nontender, has colostomy bag and drainage tube in place Lower extremities: Feet appear puffy but just trace pedal edema Neuro: Able to squeeze with left hand, right upper extremity being held a nurse with pressure applied for recently removed underlying, currently not able to raise legs off the bed but still has epidural Lab and Diagnostics Result Diagram: 08/31/16 1252 08/31/16 0644 Assessment & Plan Assessment # s/p radical cystectomy and prostatectomy and ileal loop today for his bladder cancer -- as per urology # acute blood loss anemia, post op Hgb 6.6 and has just finished transfusion 2 units pRBC per urology -- assume urology will continue to manage this but will check orders later today # recent port infection with MSSA earlier this month (port removed) -- as per Dr Cameron continue Ancef 2 gm IV q 8 hr -- notified Dr Cameron of his admission -- as per Dr Cameron the patient did not yet get MANE done (had been planned as outpt) so will need that done during this admission (not yet ordered,wait until stable post op) # Poor pre-operative nutritional status -- will probably be able to resume oral intake tomorrow per urology -- director of cardiopulmonary services consult, possible supplements # Type II diabetes mellitus -- Glucose 73 this morning -- Usual insulin is detemir 65 units daily, will hold for now -- Start high dose lispro sliding scale # Chronic pain medication (as outpatient is on scheduled methadone dose as needed oral Dilaudid) -- We will use as needed IV Dilaudid and resume oral methadone as soon as possible -- Is still on epidural but may need additional narcotics if signs of withdrawal # Hypothyroidism -- Resume usual medication when able # Anxiety (unclear if he also has a history of depression) -- Resume sertraline when able -- IV lorazepam when necessary until he can resume his oral as needed doses of lorazepam and alprazolam Problems: Keshia Silva MD Aug 31, 2016 16:39
[2016-08-31] MEDS ORDERED: Glycopyrrolate 0.2 MG/ML 1mL Inj ONE (16:46)
[2016-08-31] MEDS ORDERED: Neostigmine 1 mg/mL 10 mL Inj ONE (16:46)
[2016-08-31] MEDS ORDERED: fentaNYL-PF 50 mCg/mL 2 mL Inj ONE (16:46)
[2016-08-31] MEDS ORDERED: Propofol 10 mg/mL 20 mL Inj ONE (16:46)
[2016-08-31] MEDS ORDERED: Ondansetron 2 mg/mL 2 mL Inj ONE (16:46)
[2016-08-31] MEDS ORDERED: Phenylephrine/NS 100 mCg/mL 10 mL Syringe IVPUSH ONE (16:46)
[2016-08-31] MEDS ORDERED: Rocuronium 10 mg/mL 5 mL Inj ONE ×2 (16:46)
[2016-08-31] MEDS ORDERED: Glucose 40% Oral Gel 15 Gm Tube PO PRN (17:15)
[2016-08-31] MEDS: Lactated Ringer's 1,000 ML IV SCH (17:29)
[2016-08-31] MEDS: Sodium Chloride LOK Flush 10 mL Syringe IVFLUSH SCH (17:30)
[2016-08-31] MEDS: HYDROmorphone 1 mg/mL Inj IVPUSH PRN ×2 (17:59→20:40)
[2016-08-31] MEDS: fentaNYL 2 mCg/mL-Bupiv 0.125% 100 ML in IV Premix 1 EACH EPIDURAL SCH (18:51)
[2016-08-31] MEDS: Insulin LISPRO 300 Unit/3 mL Inj SUBQ SCH ×2 (20:33→22:00)
[2016-08-31] MEDS: CeFAZolin 2 Gm/50 mL D5W Duplex Bag IV SCH (20:36)
[2016-08-31 20:50] LABS: Mean Corpuscular Hemoglobin 28.9 pg (27.0-35.0); Mean Corpuscular Volume 88.7 fL (81-100)
--- NOTE | 2016-08-31 22:10 | CONS ---
[address] [address] CONSULTATION REPORT PATIENT: DIANA CROWELL : 1965 MR#: [id number] ADMIT: 08/31/2016 JOB ID: [id number] DATE OF SERVICE: 08/31/2016 REQUESTING PHYSICIAN: I thank Dr. Thomas for inviting me back into this case. INTERVAL HISTORY: Recall this is a 51-year-old gentleman with invasive bladder cancer who we saw during an admission last week. At that time, the patient had a grossly purulent right chest port infection. The cultures grew MSSA from the wound, but not from blood. The port was promptly removed by General Surgery. We had planned on a two week course of antibiotics assuming his MANE was negative and a six week course of antibiotics if it was positive. Unfortunately, because of logistical barriers last week we were unable to get the MANE done so the patient was discharged this past August 28, to continue and receive Ancef 6 g a day by continuous infusion until his readmission today. This morning, the patient was readmitted and underwent a total cystectomy and prostatectomy with formation of an ileal conduit. The final OP report was not on the chart yet, but apparently things went reasonably well, though the patient did require postoperative transfusions. We await the final OP report. This afternoon, the patient says he is feeling okay, though he is having expected postop pain. No fevers or chills have been noted in the three days that he was at home and he had no problems with his infusions. PHYSICAL EXAMINATION: Reveals a pale, afebrile gentleman, temp 36.9, pulse 98, respiratory rate 16, blood pressure 112/75, saturating well on 8 L. He is in no acute distress. The lungs are clear. Cardiac tones: Regular rate and rhythm without murmur. No peripheral stigmata of endocarditis. I did not examine the abdomen as he was just operated within the past few hours. LABORATORIES: Include a white count of 7800, basically normal diff, platelets 196. Creatinine 0.6. No other labs of note. Recall that from his last admission his sputum and port site cultures grew MSSA, but his blood cultures were negative. IMPRESSION: Methicillin-sensitive Staphylococcus aureus port infection which occurred at the end of his cycles of chemotherapy for his bladder cancer. The port was removed promptly and the patient now approaches the expected 14 day duration of therapy. Whether or not he might need extended therapy is dependent completely on MANE results. RECOMMENDATIONS: 1. Continue Ancef 2 g IV q.8 h. through at least September 03. 2. MANE later this week as the patient improves. If the MANE is negative will conclude all MSSA therapy September 03, and if it is positive we will have to extend it considerably. 3. Will continue to follow this patient with you. MTDD
[2016-09-01] VITALS (17 sets, daily range): BP systolic 78–120; BP diastolic 40–71; PULSE 96–103; RESP 16–18; O2SAT 96–99
[2016-09-01] MEDS: Lactated Ringer's 1,000 ML IV SCH ×3 (00:03→20:45)
[2016-09-01] MEDS: Sodium Chloride LOK Flush 10 mL Syringe IVFLUSH SCH ×4 (00:30→23:45)
[2016-09-01] MEDS ORDERED: CeFAZolin 2 Gm/50 mL D5W Duplex Bag IV SCH ×2 (00:30→17:30)
--- NOTE | 2016-09-01 00:30 | OP ---
[address] [address] OPERATIVE REPORT PATIENT: DIANA CROWELL : 1965 MR#: [id number] ADMIT: 08/31/2016 JOB ID: [id number] DATE OF SURGERY: 08/31/2016 PREOPERATIVE DIAGNOSIS(ES): Bladder cancer. POSTOPERATIVE DIAGNOSIS(ES): Bladder cancer. PROCEDURE PERFORMED: 1. Radical cystoprostatectomy. 2. Extended pelvic lymph node dissection. 3. Ileal conduit urinary diversion. SURGEON: Haven Fisher MD CIRCLE SHEAR OPERATOR: MD Paulina High PA-C Their expert technical assistance was required to aid dissection and creation of the conduit. FINDINGS: Friable posterior bladder wall adjacent to the rectum. ANESTHESIA: 1. General endotracheal. 2. Epidural. ESTIMATED BLOOD LOSS: 1 L. DRAINS: 1. Weathers catheter via penile urethra acting as a pelvic drain. 2. 10 flat ANURAG drain. 3. Bilateral ureteral stents. SPECIMENS: 1. Radical cystoprostatectomy specimen. 2. Pelvic lymph nodes (labeled as right and left: common iliac, external iliac, internal iliac, and obturator lymph nodes). 3. Rectal serosa. 4. Rectal nodule. COMPLICATIONS: None. CONDITION: Stable. INDICATION FOR PROCEDURE: The patient is a 51-year-old gentleman with advanced bladder cancer. He is status post chemotherapy. He now presents for the aforementioned procedure. DESCRIPTION OF PROCEDURE: After informed consent was obtained, the patient was taken to the operating room. A time-out was performed identifying correct patient, surgical site, and procedure. An epidural was placed by the anesthesiologist. He was placed in supine position. All pressure points were identified and appropriately padded. He was placed under general endotracheal anesthesia. His existing Weathers catheter had been removed. His genitals and abdomen were then prepped and draped in the usual sterile fashion. An 18-Bengali Weathers catheter was then placed into the patient's bladder. A midline infraumbilical incision was made from just inferior of the umbilicus to the pubic symphysis. The skin was incised with a 10 blade. Bovie electrocautery was used to incise the subcutaneous tissues and fascia. The Bookwalter was placed over the patient, with care being taken to not directly rest the device on the patient. A peritoneotomy was made and posterior to the umbilicus, the urachus was grasped with two Kochers. A 2-0 silk tie was placed on the umbilical side, the urachus was incised, and the Esperanza released. The remaining Esperanza on the bladder was used for retraction. The peritoneal attachments of the bladder laterally were taken down with a LigaSure device. This was taken down to the pelvic brim over the external iliacs. Both ureters were identified and a right angle was used to dissect the ureters and tag them with vessel loops. The left ureter was then traced down to the ureterovesical junction. A right angle was placed around it and the ureter incised. The ureter at the ureterovesical junction was then ligated with an 0 silk tie. A distal margin from the left ureter was incised and passed off the table to pathology for frozen section. The left ureter at the 12 o'clock position was tagged with a 3-0 silk and dissection proceeded proximally to free the ureter away from its attachments Next, attention was then turned to tracing the right ureter down to the ureterovesical junction. Bovie electrocautery was used transversely to free the peritoneal attachments between the ureterovesical junctions. The right ureter was then traced to its entry into the bladder and a right angle was placed around it and it was sharply incised. An 0 silk tie was placed around the ureterovesical junction. A distal margin was incised from the right ureter and passed off for frozen section. Both ureteral margins returned as negative for malignancy. The right ureter was also tagged with a 3-0 silk. The right ureter was then also freed from its attachments proximally. Attention was turned to freeing the posterior bladder and prostate off of the rectum. Blunt dissection was performed after the peritoneal attachments had been incised with Bovie electrocautery. At the bladder base near the junction with the prostate, the bladder was found to be quite friable and there was entry into the bladder because it was necrotic. The pedicles were then taken down with the LigaSure device. This proceeded distally along the superior pedicles to the bladder as well as the prostatic pedicles. Next, the endopelvic fascia was incised with Bovie electrocautery. A Allison clamp was applied to the dorsal venous complex x2 with 0 Vicryl ties x2. This was incised with Bovie electrocautery. The dorsal venous vein complex bleeding was then treated with a 2-0 Vicryl x2. There was excellent hemostasis at this point. The anterior urethral plate was then incised and the catheter was cut at its hub externally and then brought through into the pelvis to help retract the prostate cephalad. The posterior urethral plate was then incised, freeing the specimen; the prostate was then removed along with the bladder and passed off the table as a radical prostatectomy specimen. The point of contact with the bladder to the rectum was examined. There appeared to be a nodule along the serosa of the rectum. This was removed and passed off the table as rectal nodule. There was some adjacent serosa of the rectum that appeared somewhat suspicious for advancement of malignancy versus desmoplastic reaction, so this too was taken off with Bovie electrocautery and sent off to the pathologist as rectal serosa. There was some ooze along the rectal wall and this was treated with Bovie electrocautery as well as FloSeal and Surgicel. . Attention was then turned to the lymph node dissection. An extended pelvic lymph node dissection was performed bilaterally of the common iliacs, external iliacs, internal iliacs and obturator nodes. The dissection was aided with a right angle and Bovie electrocautery. The obturator nerves were seen bilaterally and care was taken to leave them undisturbed. The lymph node packets were passed off the table as aforementioned. Next, attention was then turned to the ileal conduit. The ileocecal junction was identified and 20 cm proximal to it, a 12 cm limb of ileum was tagged with 3-0 silk on the antimesenteric side of the serosa. Bovie was used to score adjacent to the ileum and a ASHKAN-60 was used at the proximal and distal aspects of the limb and dropped inferiorly. Attention was then turned to the reanastomosis of the ileum. They were brought side by side and 3-0 silks on the antimesenteric side were used to bring the limbs together. Keila's were used to take a snippet of serosa and mucosa large enough to accommodate the ASHKAN stapler again, which was inserted on the antimesenteric side. It was then fired across. Three Allis clamps were used at the butt end to align the ileum, and a TA-60 stapler was used for the anastomosis. Then, 3-0 silks in a Lembert fashion were used to bury the staple line. Another 3-0 silk at the vertex of the anastomosis was used on the serosal edge. The mesenteric window was closed with 3-0 silk in interrupted fashion, with care being taken to avoid any blood vessels. The ileal conduit limb at the distal aspect was then incised with Bovie electrocautery. The conduit was irrigated until it was clean of its contents. The left ureter was brought through the sigmoid mesentery just anterior to the sacral promontory. Abbasi scissors were used at the 12 o'clock position to spatulate the ureters. It was seen that with no tension, the ureters fit nicely on opposing ends of the butt of the conduit. Then, 4-0 Monocryl at the apices of the spatulated aspect of the left ureter were brought to the enterotomy made in the conduit. This aligned nicely and the stent was fed up to the ureter until just gentle resistance was met. The stent was then brought out through the distal end of the conduit. The 4-0 Monocryl was used to sew the ureter to the conduit. An asepto was used to test the water tightness of the seal, and it was watertight. The same proceeded for the right ureter. The patient had been previously marked by the stomal therapist. Esperanza was used to grasp the skin in the right upper quadrant and a 10 blade was used to incise the skin. Bovie electrocautery was used to incise the fatty tissue down to the fascia which was incised in a cruciate form and allowed generously for two fingers to be admitted through it. A [place] was used to guide the conduit out through the skin. The stoma was made with 2-0 Vicryl at the 12, 3, 6, and 9 o'clock positions. It was matured also with 2-0 Vicryl. A 10 flat Sylvester-Montero drain was brought into proximity of the ureteroenteric anastomoses. The conduit was verified as not on any tension. The laps were then removed from the patient's body and the Bookwalter as well. The fascia was closed with looped 0 PDS at the inferior and superior aspects of the incision and every 3rd stitch was accompanied by 0-Vicryl as an internal retention. The wound was copiously irrigated with water. Remington's and fatty tissue was closed with 3-0 Vicryl in interrupted fashion. The skin was closed with hong and dressed with Vaseline gauze, Telfa, and Tegaderm. The drain was dressed as well and a urostomy appliance was placed over the ileal conduit diversion. All sponge, needle, and instrument counts were correct at the end of the procedure. The patient appeared to tolerate the procedure well without any apparent complications. He was reversed from general anesthesia and taken to the PACU in good and stable condition. SHARLENE
[2016-09-01] MEDS: fentaNYL 2 mCg/mL-Bupiv 0.125% 100 ML in IV Premix 1 EACH EPIDURAL SCH ×2 (02:24→10:46)
[2016-09-01] MEDS: HYDROmorphone 1 mg/mL Inj IVPUSH PRN ×5 (03:35→18:37)
[2016-09-01] MEDS: CeFAZolin 2 Gm/50 mL D5W Duplex Bag IV SCH ×3 (04:51→20:45)
[2016-09-01] MEDS: Insulin LISPRO 300 Unit/3 mL Inj SUBQ SCH ×4 (06:37→22:00)
[2016-09-01 06:51] LABS: Mean Corpuscular Hemoglobin 29.4 pg (27.0-35.0); Mean Corpuscular Volume 89.9 fL (81-100)
--- NOTE | 2016-09-01 11:21 | PROG NOTE ---
[address] [address] PROGRESS NOTE PATIENT: DIANA CROWELL : 1965 MR#: [id number] ADMIT: 08/31/2016 JOB ID: [id number] DATE: 09/01/2016 EPIDURAL MANAGEMENT NOTE: SUBJECTIVE: The patient is seen lying in bed sleeping. He is easily arousable to questions, and his is at his bedside. Apparently, the patient had some hypotension overnight that responded to several units of packed cells. The patient states that he is satisfied with his pain control. He does states that his goal pain score is about a 5, and it has been running lately at about an 8. However, we are aware that the patient has chronic pain and his baseline pain score is about a 5-6 on a 0-10 scale. The patient remains n.p.o. currently. He has not yet been out of bed. He states that he does feel like his legs may be a little numb. However, it is difficult to assess at this point. OBJECTIVE: Currently, the patient's blood pressures remain borderline. No systolic pressures below 90 that I can see this morning. The patient is asymptomatic. He is saturating well on an OxyMask. Inspection of the epidural site shows that the tape is peeling off a little bit and I redressed that. However, the catheter remains intact without any erythema or apparent leakage around the epidural site. He has an epidural solution of 0.125% bupivacaine with fentanyl 2 mcg/mL running at a rate of 10 mL an hour with a 4 mL demand dose. Hospice has also put the patient back on his outpatient Dilaudid and methadone medications, so he has IV Dilaudid written for p.r.n. IMPRESSION AND PLAN: A 51-year-old gentleman who is postoperative day one from cystectomy and ileal loop with a thoracic epidural that appears to be functioning adequately for pain management. Given that the patient has underlying chronic pain issues and was previously on high-dose Dilaudid, as well as methadone prior to surgery, we are realistic that his pain scores will never get below baseline of 5-6. However, the patient is currently satisfied with his pain management, which includes a combination of the thoracic epidural, as well as IV Dilaudid and methadone, and so we will leave the settings as is. I do not believe at the time that there is any need to titrate down his epidural given that his blood pressure has stabilized with packed cells resuscitation. If with increased activity the patient should note weakness in the lower extremities, then we can consider titrating down the epidural. Of note, the patient received IV fentanyl intraoperatively and is currently receiving fentanyl through his epidural and had noted no allergic reaction such as the muscle twitching that he experienced with the Duragesic (fentanyl) patch and so, the patient was reassured that he probably does not have a true allergy to fentanyl.
--- NOTE | 2016-09-01 11:53 | PROG NOTE ---
[address] [address] PROGRESS NOTE PATIENT: DIANA CROWELL : 1965 MR#: [id number] ADMIT: 08/31/2016 JOB ID: [id number] DATE: 09/01/2016 REASON FOR FOLLOWUP: MSSA infection of right chest port, which was removed about 10 days ago. The patient has now undergone cystectomy and placement of an ileal conduit. INTERVAL HISTORY: The patient is now in his second postoperative day, and is still complaining of extreme fatigue. Otherwise, he has no fevers, chills, shortness of breath, or cough. He has expected abdominal and postoperative pain. PHYSICAL EXAMINATION: Reveals an afebrile gentleman. Temp 37.1, pulse 96, respiratory rate 16, blood pressure 94/56. He is saturating well on 3 L. He is in no acute distress, but quite pale. Lungs are clear. Cardiac tones without new murmur. Abdomen: Hypoactive bowel tones. He has an ileal conduit, which has been formed on the right side of his abdomen, and a ANURAG drain coming out of the left. Weathers catheter is also present. DIAGNOSTIC DATA: Labs include a white count of 13,000, which is down a bit from yesterday; platelets 142. Creatinine 0.75. Micro studies: None new. Recall that we had followup negative blood cultures earlier. The patient is currently receiving cefazolin 2 g IV q.8. IMPRESSION: This is a gentleman who had an methicillin-sensitive Staphylococcus aureus infection of the port with negative blood cultures. We had planned to treat for two weeks with anti-staphylococcal therapy, and we are now nearing the end of that, as we are about, today, 11 of our planned 14 days of treatment. We had hoped to get a transesophageal echo to make completely sure there is no evidence of endocarditis prior to stopping antibiotics. RECOMMENDATIONS: 1. Ancef IV through at least September 03. 2. MANE, preferably to be done before September 03, to help us determine length of therapy. 3. No additional ID recommendations at this point.
[2016-09-01] MEDS ORDERED: Sodium Chloride LOK Flush 10 mL Syringe IVFLUSH PRN ×2 (13:25)
[2016-09-01] MEDS: 0.9% Sodium Chloride 250 ML IV SCH ×2 (13:43→23:40)
--- NOTE | 2016-09-01 14:12 | PCM.PNMED ---
Subjective Date of Service Sep 01, 2016 Subjective Patient underwent underwent radical cystectomy and prostatectomy and ileal loop for his bladder cancer. He is also being treated for bacteremia with IV Ancef until September 03. Infectious disease advised to do a MANE preferably before September 03 to help determine length of therapy. Patient is weak, has epidural with continuous/when necessary administration pain medications, he also has IV prn Dilaudid as needed. Patient is complaining of lower abdominal pain, numbness in the lower extremities, and weakness in lower extremities. I discussed these findings with Dr. Gutierrez(anesthesiologist). We will decrease the rate of his epidural drip and if there is no improvement we will do MRI of the T and L spine to r/o hemorrhage or abscess. 4:30 PM Addendum Lower extr weakness is improving, numbness improved, pain is controlled with IV Dilaudid and Methadone and epidural drip. Exam Vital Signs Vital Sign - Last Date Time Temp Pulse Resp B/P Pulse Ox O2 Delivery O2 Flow Rate FiO2 09/01/16 12:42 37.6 98 18 106/65 99 OxyMask 3.00 Intake and Output 08/31/16 08/31/16 09/01/16 Cumulative From/Thru 15:00 23:00 07:00 08/27/16 16:32 - 09/01/16 06:54 Intake Total 8200 ml 905 ml 1558 ml 02936 ml Output Total 1160 ml 420 ml 600 ml 2180 ml Balance 7040 ml 485 ml 958 ml 8483 ml Intake Oral 0 ml 0 ml 0 ml IV Total 7950 ml 550 ml 828 ml 9328 ml Autotransfusion 250 ml 250 ml Packed Cells 355 ml 730 ml 1085 ml Output Urine Total 110 ml 200 ml 450 ml 760 ml Drainage Total 50 ml 220 ml 150 ml 420 ml Estimated Blood Loss 1000 ml 1000 ml # Bowel Movements 1 1 Exam GENERAL: Alert, not in distress, cooperative HEAD: atraumatic, normocephalic, no bruises. EYES: GERBER, EOMI, anicteric, able to fully open and close eyelids SKIN: Skin color normal, turgor normal. No visible rashes or lesions. EAR, NOSE, MOUTH, THROAT: Lips, oral mucosa, tongue gums, oropharynx are moist , pink, no lesions. Ears normal appearance, no lesions. NECK: no jugulovenous distention, no carotid bruits, carotid pulse normal contour, No carotid bruit, supple, no enlarged lymph nodes appreciated; ROM normal. RESPIRATORY: Lungs clear to auscultation. Good diaphragmatic excursion. Normal percussion sound. CARDIAC: normal S1 and S2; no rubs, murmurs, or gallops; regular rate and rhythm ABDOMEN: Abdomen soft, tender. No masses or organomegaly. MUSCULOSKELETAL: ROM full, muscles are not tender EXTREMITIES: pitting edema in LE, no deformities, clubbing or skin discoloration. NEURO: Alert, oriented X 3, Sensation - pronounced numbness and weakness in lower extremities, Cranial nerves II-XII intact, pronounced weakness in lower extremities. PULSES: 2+ radial, 2+ carotid REVIEW OF SYSTEMS: GENERAL: + malaise, no fevers., SEE HPI HEENT: Negative for frequent or significant headaches, No changes in hearing or vision, no nose bleeds or other nasal problems All other reviewed and negative other than HPI. IVs and Medications Medications Reviewed: Medications were reviewed in detail Lab and Diagnostics Result Diagram: 09/01/1662909/01/16629 Assessment & Plan Bladder cancer - s/p radical cystectomy and prostatectomy and ileal loop today for his bladder cancer - urology following Lower extr weakness - most likely secondary to epidural drip of local anesthetic - discussed with anesthesiologist Dr. Gutierrez, plan is to decrease epidural drip, monitor motor function and if it does not improve MRI of the T and L spine. Acute blood loss anemia, post op Hgb 6.6 - stable, s/p 2 u of RBC - monitor Recent port infection with MSSA earlier this month (port removed) - as per Dr Cameron continue Ancef 2 gm IV until Sep 03 - Patient will need MANE, preferably to be done before September 03, to help us determine length of therapy. 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 Plan of care, medication side effects, home medication, diagnostic procedures and available alternatives were discussed and reviewed with patient/famil. All questions answered. Patient/family verbalized understanding, approved and agreed to plan of care. Given patient's current condition, I certify, in my opinion inpatient services greater than two midnights are medically necessary for this patient. Please see H&P and MD progress notes for additional information about patient's course of treatment. VTE Mechanical Devices: Intermittant Pneumatic CD Time spent 35 min Naveen Reid MD Sep 01, 2016 14:12
[2016-09-01] MEDS ORDERED: [UNRECOGNIZED DRUG - OTHER] EPIDURAL SCH (14:25)
[2016-09-01] MEDS: FENTANYL IV SCH ×2 (15:05→22:51)
[2016-09-01] MEDS: BUPIVACAINE MPF IV SCH ×2 (15:05→22:51)
[2016-09-01] MEDS: [UNRECOGNIZED DRUG - OTHER] IV SCH ×2 (15:05→22:51)
--- NOTE | 2016-09-01 15:13 | PCM.PNSURG ---
Subjective Date of Service: Sep 01, 2016 Date of Service: Sep 01, 2016 Visit Information: Reason for Visit Bladder Cancer Surgery/Surgery Date 08/31/16 Post-Op Day #1 Date of Admission: Aug 31, 2016 at 16:45 Hospital Day #2 Subjective: Pt is supine during exam, he reports incisional pain and fatigue. He has not passed flatus. He has not been OOB yet due to epidural. Gastrointestinal: Other (npo today) Pain Management: PO, Epidural, IV Push Objective Vital Sign- Last 8 Hours Date Time Temp Pulse Resp B/P Pulse Ox O2 Delivery O2 Flow Rate FiO2 09/01/16 12:42 37.6 98 18 106/65 99 OxyMask 3.00 09/01/16 09:02 Supplement Oxygen 09/01/16 09:02 16 97 09/01/16 08:47 37.1 96 18 94/56 98 OxyMask 3.00 Intake and Output- Last 8 Hour 09/01/16 Cumulative From/Thru 07:00 08/27/16 16:32 - 09/01/16 06:54 Intake Total 1558 ml 00928 ml Output Total 600 ml 2180 ml Balance 958 ml 8483 ml Intake Oral 0 ml 0 ml IV Total 828 ml 9328 ml Autotransfusion 250 ml Packed Cells 730 ml 1085 ml Output Urine Total 450 ml 760 ml Drainage Total 150 ml 420 ml Estimated Blood Loss 1000 ml # Bowel Movements 1 1 General: Alert, Oriented X3, Cooperative (supine during exam) Neck: Supple Lungs: Normal Air Movement SURGICAL WOUND : Wound Location/Description ostomy site pink and viable appearing, stents in place, serosanginous exudate pink tinge durine andrew dudley drain and pelvic drain with serosanginous exudate. Extremities: Distal Pulses Palpable Neuro: Normal Speech Result Diagram: 09/01/16 0630 09/01/16 0630 Assessment & Plan Impression POD #1, s/p radical cystoprostatectomy, ileal conduit with urinary diversion, extended pelvic lymph node dissection Diet -NPO today, pt will advance to clear liquid diet tomorrow He will remain on clear liquid diet until passage of flatus We discussed his labs and pain control with IV and PO pain medications. Pt did receive blood products last night, per nurse 2 PRBC's due to hypotension hgb/hct and BP improved today As soon as ok by anesthesia we will encourage OOB and ambulation with assist. Dr. Fisher will start pt on heparin tomorrow, this was discussed with family and RN. Encouraged use of IS Problems: VTE Prophylaxis: SCDs Resuscitation Status: CPR: Attempt Resuscitation Paulina Duran PA-C Sep 01, 2016 15:13
--- NOTE | 2016-09-01 16:02 | PROG NOTE ---
[address] [address] PROGRESS NOTE PATIENT: DIANA CROWELL : 1965 MR#: [id number] ADMIT: 08/31/2016 JOB ID: [id number] DATE: 09/01/2016 SUBJECTIVE: I was contacted by the hospitalist regarding the patient having weakness and numbness in the lower extremities. The hospitalist was concerned that this was related to the epidural. I went and saw the patient, and the patient stated that compared to this morning the patient does notice that he has improvement in his lower extremity strength and numbness. However, he does note that he does not have normal motor strength in the lower extremities. After discussion with the hospitalist, I believe that this is most likely related to the effect of the local anesthetic on his lumbosacral nerves and not anything more concerning such as an epidural hematoma, the diagnosis of which was certainly entertained. However, given the patient has no other complaints related to such a diagnosis such as low back pain and tenderness to palpation over the site of epidural insertion, I felt that this was less likely. When I saw the patient, he was resting comfortably. There was a point earlier when the hospitalist had the epidural turned off, and the patient states that within 10 minutes he noted increase in his abdominal pain but also improvement in his lower extremity motor and sensory function. To me, this strongly suggests that his lower extremity symptoms are secondary to the infusion of local anesthetic affecting his motor function. IMPRESSION AND PLAN: A 51-year-old male who is postoperative day one from a cystectomy and ileal loop with a thoracic epidural in place and complains of lower extremity numbness and weakness. This is almost certainly due to the local anesthetic. My plan is to decrease the concentration of the bupivacaine in his epidural to half strength. In addition, we will decrease the infusion rate. I spoke with the hospitalist and informed him that these changes should manifest in improvement of weakness in his lower extremities within the next hour. It was agreed that should we not see improvement, then more urgent intervention would be warranted. I spoke with the patient and family, and they were in agreement with this plan.
[2016-09-01] MEDS: Heparin 5,000 Unit/mL Inj SUBQ SCH (17:29)
[2016-09-01] MEDS ORDERED: HYDROmorphone PCA 0.2 mg/mL 30 mL Inj - Standard IV PRN (19:00)
[2016-09-01] MEDS ORDERED: HYDROmorphone 1 mg/mL Inj IVPUSH PRN (19:00)
[2016-09-02] VITALS (14 sets, daily range): BP systolic 109–117; BP diastolic 70–72; PULSE 89–106; RESP 14–20; O2SAT 95–98
[2016-09-02] MEDS: Heparin 5,000 Unit/mL Inj SUBQ SCH ×3 (00:12→16:34)
[2016-09-02] MEDS: CeFAZolin 2 Gm/50 mL D5W Duplex Bag IV SCH ×3 (03:58→20:45)
[2016-09-02] MEDS: Lactated Ringer's 1,000 ML IV SCH ×2 (06:03→20:44)
[2016-09-02] MEDS ORDERED: HYDROmorphone 1 mg/mL Inj IVPUSH PRN (07:55)
[2016-09-02] MEDS: Insulin LISPRO 300 Unit/3 mL Inj SUBQ SCH ×4 (08:00→22:00)
[2016-09-02] MEDS: Sodium Chloride LOK Flush 10 mL Syringe IVFLUSH SCH ×2 (08:36→16:34)
--- NOTE | 2016-09-02 08:39 | PCM.PNSURG ---
Subjective Date of Service: Sep 02, 2016 Date of Service: Sep 02, 2016 Visit Information: Reason for Visit Bladder Cancer Surgery/Surgery Date Post-Op Day # 2 Date of Admission: Aug 31, 2016 at 16:45 Hospital Day # 3 Subjective: Mr Knutson reports having flatus, and quite a bit last night. The night before, he did have a bowel movement. Overnight, he had a smear of bowel movement. He has been NPO w/o N/V. His pain is 6-7/10 on average. Gastrointestinal: No N/V, Passing Stool Pain Management: Epidural Objective Vital Sign- Last 8 Hours Date Time Temp Pulse Resp B/P Pulse Ox O2 Delivery O2 Flow Rate FiO2 09/02/16 06:13 18 98 09/02/16 04:10 36.9 100 18 117/72 97 OxyMask 2.50 09/02/16 04:00 18 95 09/02/16 03:25 18 95 09/02/16 00:56 14 95 Intake and Output- Last 8 Hour 09/02/16 Cumulative From/Thru 07:00 08/27/16 16:32 - 09/02/16 06:02 Intake Total 836 ml 45397 ml Output Total 1755 ml 6335 ml Balance -919 ml 6250 ml Intake Oral 0 ml 0 ml IV Total 836 ml 49458 ml Autotransfusion 250 ml Packed Cells 1085 ml Output Urine Total 1710 ml 4725 ml Drainage Total 45 ml 610 ml Estimated Blood Loss 1000 ml # Bowel Movements 1 General: Alert, Cooperative, No Acute Distress Abdomen: Soft, Appropriately tender (incision: hong intact, wound is clean and dry. ANURAG mostly serous drainage. Urostomy: pink and viable appearing, stents emanating from conduit; UOP is blood tinged, mostly clear yellow. Pelvic drain with scan old bloody and serous drainage.) Extremities: Warm, Edema Generalized Neuro: Cranial Nerves 2-12 nl Result Diagram: 09/01/1630 09/01/1630 Assessment & Plan Impression POD# 2 radical cystoprostatectomy with extended PLNDx and creation of ileal conduit urinary diversion Problems: Plan Labs ordered today: - CBC - BMP - ANURAG Cr ANURAG Cr pending Hb stable Start CLD today Very much appreciate anesthesiology team management of pain/PCEA - Depending on CLD today, he might go to full liquids tomorrow - I would like him to get out of bed, at least to chair as soon as feasible Very much appreciate hospitalist and ID management of his ongoing medical problems, acute and chronic BMP and Mg tomorrow AM VTE Prophylaxis: SCDs Resuscitation Status: CPR: Attempt Resuscitation Haven Fisher MD Sep 02, 2016 08:39
[2016-09-02] MEDS: HYDROmorphone PCA 0.2 mg/mL 30 mL Inj IV PRN ×2 (09:10→17:58)
[2016-09-02 09:28] LABS: Mean Corpuscular Hemoglobin 29.2 pg (27.0-35.0); Mean Corpuscular Volume 90.2 fL (81-100)
[2016-09-02] MEDS: [UNRECOGNIZED DRUG - OTHER] IV SCH (09:54)
[2016-09-02] MEDS: BUPIVACAINE MPF IV SCH (09:54)
[2016-09-02] MEDS: FENTANYL IV SCH (09:54)
[2016-09-02] MEDS: 0.9% Sodium Chloride 250 ML IV SCH (13:19)
[2016-09-02] MEDS: 0.9% Sodium Chloride 1,000 ML IV SCH (15:12)
--- NOTE | 2016-09-02 15:22 | PCM.PNMED ---
Subjective Date of Service Sep 02, 2016 Subjective Having abdominal pain. Passing gas and even had a bowel movement yesterday. Negative chest pain, negative dyspnea Exam Vital Signs Vital Sign - Last Date Time Temp Pulse Resp B/P Pulse Ox O2 Delivery O2 Flow Rate FiO2 09/02/16 14:01 36.8 89 18 109/70 95 OxyMask 2.50 Intake and Output 09/01/16 09/01/16 09/02/16 Cumulative From/Thru 15:00 23:00 07:00 08/27/16 16:32 - 09/02/16 06:02 Intake Total 1086 ml 836 ml 11861 ml Output Total 2400 ml 1755 ml 6335 ml Balance -1314 ml -919 ml 6250 ml Intake Oral 0 ml 0 ml 0 ml IV Total 1086 ml 836 ml 41147 ml Autotransfusion 250 ml Packed Cells 1085 ml Output Urine Total 2255 ml 1710 ml 4725 ml Drainage Total 145 ml 45 ml 610 ml Estimated Blood Loss 1000 ml # Bowel Movements 1 Exam Gen.- A+ O 3 no apparent distress. Obese male lying in bed Head-atraumatic/normocephalic Eyes- open conjunctiva clear, pupils equal, nonicteric ENT- ears no deformity, nose no deformity Neck- supple/trach midline CVS- RRR no murmur or gallop Lungs- CTA GI- diminished bowel sounds, soft tender Musc- moving 4 no obvious deformity Neuro- cranial nerves II through XII intact to gross examination, nonfocal Skin- warm and dry, no rashes/lesions/wounds noted Psych- pleasant and appropriate, Lab and Diagnostics Result Diagram: 09/02/1690409/02/16904 Assessment & Plan 51-year-old male admitted 08/31, s/p radical cystectomy and prostatectomy and ileal loop 09/01 for bladder cancer 09/02 patient's having poor pain control we need to increase MANAGER STRATEGIC ALLIANCES, blood sugars less than 125 on current regimen, hemoglobin steady/elevated we will need to continue to monitor this. #Acute/chronic pain-likely aggravated by decrease of epidural. Patient is not opioid linnette, increasing MANAGER [employer]IANCES dosing to accommodate. - Methadone was resumed 09/01 #Bladder cancer - s/p radical cystectomy and prostatectomy and ileal loop today for his bladder cancer - urology following #Lower extr weakness 09/01- resolved with decreased rate of epidural 09/02 #Acute blood loss anemia, Hgb 6.6 08/31, 8.9 09/02 - stable, s/p 2 u of RBC 08/31 #Recent port infection with MSSA earlier this month (port removed)-not up to MANE today - as per Dr Cameron continue Ancef 2 gm IV until Sep 03 - Patient will need MANE, preferably to be done before September 03, to help us determine length of therapy. #Type II diabetes mellitus - stable - Accuchecks, ISS #Hypothyroidism - Resume usual medication when able #Anxiety (unclear if he also has a history of depression) - Resume sertraline when able - IV lorazepam prn #Prophylaxis -DVT proph - SCD VTE Prophylaxis: SCDs VTE Mechanical Devices: Intermittant Pneumatic CD Resuscitation Status: CPR: Attempt Resuscitation Jorge Yu MD Sep 02, 2016 15:22
--- NOTE | 2016-09-02 16:19 | PCM.CONPAL ---
Date of Service Sep 02, 2016 Date of Hospital Admission: Aug 31, 2016 at 16:45 Date of Palliative Consult: Sep 02, 2016 Requesting Provider: Jorge Yu MD Reason Palliative Care Consult: Pain Hospital Unit @time of consult: Orthopedic/Surgical Care Palliative Care Recommendation Summary of palliative recommendations: -Symptom management (Pain/other) Pain-now controlled with CLIP ON SUNGLASSES INSPECTOR at opiate tolerant dosing of 0.4 hydromorphone with max of 2.4 mg/hr.in combo with his methadone at 15 mg Q 8 and his epidural. His epidural dose has been decreased and that precipitated the need of CLIP ON SUNGLASSES INSPECTOR. Goal would be to get him off the epidural in 24- 48 hours. His methadone should stay at 15 mg Q 8 and restart his "PRN" HM oral dosing or 4-8 mg when needed and in transition off his CLIP ON SUNGLASSES INSPECTOR. He will need to start tapering the HM as his post op pain regresses. I reviewed trial when home of cutting dose in 1/2 or stretching interval by 1-2 hours. I suggest follow up appt to review how pain is doing and to set up a schedule to taper his opiates over time. Anxiety-this has been an issue in the hospital more than at home. That being said he has been on lorazepam 0.5- 1 mg TID at home. Sertraline was at 100 mg Q day but seems to have been stopped --would like to continue this for another few months -then try tapering off. Insomnia-tied to his anxiety- he prefers alprazolam at HS. Nausea--an issue with last hosp-now not. MSSA bacteremia-last hospitalization. Port is out and he has been on antibiotics for nearly 2 weeks.He is scheduled for a MANE tomorrow to define if he is close to done with antibiotics. Goal would be to get him off of his benzodiazepams over the next few months and to get him on a fraction of his pain meds. Dr Salvador has been willing to manage these which helps the pt with driving distance. -DPOA/Advanced Directives/POLST--full code, Sherly- is defined as DPOAHC -Family/emotional support-Sherly -Spiritual support-he is not particularly interested Additional Medical Diagnoses with primary management by Hospitalist team include : obesity DM2 Hx MSSA bacteremia Post op management of radical cystoprostatectomy and ileostomy Problems: End of Life Preferences FULL CODE Disposition expects to go home Resuscitation Status Resuscitation Status: CPR: Attempt Resuscitation POLST Updates/Changes POLST Discussed with: Patient POLST Review Outcome: No Change . Pain: Moderate Symptom management: Pain Pt History History of Present Illness Palliative Care consultation for pain management Urologist: Dr. Fisher; PCP Dr. Brown and NINO Pham. Oncologist Dr. Phipps 51 yo with hx of large aggressive bladder tumor that has now been treated with attempted TUBR then chemotx and now radical cystoprostatectomy and lymph node resection. Pain has been an issue from the start and he has had significant opiate tolerance. He has had problems with anxiety around his dx and pain management and has been on regular dosing of lorazepam. His outpt meds have included methadone 15 mg Q 8 and hydromorphone 8 mg Q 4-- requested to be for breakthrough but turned into just maintenance. He has had adequate control with this and the maintenance of a thakkar-any amt of retention cause increase in pain. His initial course was complicated by massive bleeding requiring transfusion, embolization of iliac artery, cardiac arrest and short intubation. He had a port placed but that became infected with MSSA and was removed a few weeks ago and he has been on IV ancef. At baseline he has obesity, HTN, chronic stasis and occ dermatitis related to this. Past Medical History Significant PMH Noted: PMHx Past Medical History Recent admission August 19- with: Acute blood loss anemia due to hematuria due to his papillary urothelial carcinoma Port infection with MSSA resulting in removal of port and now on outpatient IV Ancef therapy Possible healthcare associated pneumonia Nausea and vomiting with anorexia Elevated alkaline phosphatase Hyponatremia Elevated troponin felt to be demand ischemia Other past medical history according to the August 19 history and physical: Acute respiratory failure requiring intubation secondary to hemorrhagic shock Cardiac arrest (her near cardiac arrest) High-grade papillary urothelial carcinoma with severe hematuria Acute blood loss anemia requiring 15 units packed red blood cells plus FFP plus cryoprecipitate Diabetes mellitus type II Hypothyroidism Hyperlipidemia Bedside Blood Glucose: 136 Surgical History Left shoulder arthroscopy Transurethral resection of bladder tumor May 2016 Home Medications According to Dr. Cameron he is currently on Ancef 2 g IV every 8 hours According to his discharge summary he is also on following: Furosemide 40 mg daily Determir insulin 65 units daily Levothyroxine 50 g daily Methadone 15 mg every 8 hours Olanzapine 5 mg daily Oxybutynin 5 mg 3 times a day Potassium chloride 20 mEq daily Sertraline 100 mg daily Alprazolam, 1 mg bedtime when necessary anxiety Dronabinol 5 mg 3 times a day when necessary bowel movement hydromorphone 8 mg every 3 hours when necessary pain Lorazepam 0.5 mg 3 times a day when necessary anxiety Metoclopramide 10 mg by mouth every 6 hours when necessary nausea or vomiting life long nonsmoker no significant ETOH intake-luis antonio since dx. Social History Occupation: -most recently not working Family Members Issues: son lives near him Social Support: son and many friends Living Situation: lives with his Spiritual Support Spiritual Support Not very important for them-their son is involved in a confucianism Responsive Patient Symptoms Pain (current): Mild Pain (minimum): Moderate Pain (maximium): Severe *Requires 72 Hour Followup Nausea: Moderate Depression: Mild Anxiety: Moderate Anorexia: Mild Shortness of Breath: Mild Constipation post op-- some BM, passing gas Palliative Performance Scale PPS Patient Status: Current PPS Ambulation: Reduced (walks with walker) PPS Activity: Unable to do any work PPS Self-Care: Full Self Care PPS Intake: Normal or reduced PPS Conscious Level: Full Performance Scale: 80% Allergy Allergies Reviewed: Yes (mental fog with low dose fentanyl patch, some myoclonus) Medications Current Medications: Current Medications Sodium Chloride 10 ml PARKER IVFLUSH Last administered on 09/02/16 08:36; Admin Dose 10 ML; Start 08/31/16 at 16:30 Cefazolin Sodium/ Dextrose 2 gm Q8H IV; Start 09/01/16 at 00:30; Stop 09/01/16 at 00:30; Status DC Insulin Human Lispro WMHS SUBQ Last administered on 08/31/16 20:33; Admin Dose 2 UNIT; Start 08/31/16 at 17:30 Hydromorphone HCl 0.5-1 mg Q1H PRN IVPUSH Last administered on 09/01/16 18:37 ; Admin Dose 1 MG; Start 08/31/16 at 17:15; Stop 09/01/16 at 18:58; Status DC Methadone HCl 15 mg Q8 PO Last administered on 09/02/16 08:37; Admin Dose 15 MG ; Start 09/01/16 at 00:30 Cefazolin Sodium/ Dextrose 2 gm Q8H IV; Start 09/01/16 at 17:30; Stop 09/01/16 at 17:30; Status DC Lorazepam 0.5 mg Q4H PRN IVPUSH Last administered on 09/02/16 15:45; Admin Dose 0.5 MG; Start 08/31/16 at 17:25 Cefazolin Sodium/ Dextrose 2 gm 2 gm Q8H IV Last administered on 09/02/16 11:48 ; Admin Dose 2 GM; Start 08/31/16 at 19:30 Sodium Chloride 250 ml @ 10 mls/hr Q24H IV Last administered on 08/31/16 23:40 ; Admin Dose 10 MLS/HR; Start 08/31/16 at 23:40; Stop 09/03/16 at 01:39 Fentanyl/ Bupivacaine HCl/ Sodium Chloride 100 ml @ 6 mls/hr Q10H IV Last administered on 09/02/16 09:54; Admin Dose 6 MLS/HR; Start 09/01/16 at 15:00 Heparin Sodium (Porcine) 5000 unit 5,000 unit Q8 SUBQ Last administered on 08:37; Admin Dose 5,000 UNIT; Start 09/01/16 at 16:30 Dextrose/Water 500 ml @ 25 mls/hr Q20H IV; Start 09/01/16 at 19:00 Hydromorphone/ Sodium Chloride Per Protocol PRN PRN IV Last administered on 19:36; Admin Dose 6 MG; Start 09/01/16 at 19:00; Stop 09/02/16 at 08:00 ; Status DC Naloxone HCl 0.04 mg Q1MIN PRN IVPUSH; Start 09/01/16 at 19:00 Hydromorphone HCl 0.5 mg Q1H PRN IVPUSH; Start 09/01/16 at 19:00; Stop at 08:00; Status DC Diphenhydramine HCl 12.5 mg Q4H PRN IVPUSH; Start 09/01/16 at 19:00 Hydromorphone HCl 0.5-1 Q1H PRN IVPUSH; Start 09/02/16 at 07:55 Hydromorphone/ Sodium Chloride Per Protocol, pls ... PRN PRN IV Last administered on 6/21/17at 09:10; Admin Dose 6 MG; Start 09/02/16 at 07:55 Sodium Chloride 1,000 ml @ 100 mls/hr Q10H IV; Start 09/02/16 at 15:12 Scheduled Cefazolin Sodium (Cefazolin IV) 1 Gm Vial 6 GM IV Q24H Furosemide (Furosemide) 40 Mg Tablet 40 MG PO DAILY Insulin Detemir (Levemir Flextouch) 100 Unit/1 Ml Insuln.pen 65 UNIT SQ DAILY Insulin Lispro (Humalog Kwikpen) 200 Unit/Ml (3 Ml) Insuln.pen 20 UNIT SQ TIDWM Levothyroxine (Levothyroxine) 50 Mcg Tablet 50 MCG PO DAILYAC Methadone (Methadone) 5 Mg Tablet 15 MG PO Q8H Olanzapine (Olanzapine) 5 Mg Tablet 5 MG PO DAILY Oxybutynin Chloride (Oxybutynin Chloride) 5 Mg Tablet 5 MG PO TID Potassium Chloride ER (Potassium Chloride ER) 20 Meq Tablet.er 20 MEQ PO DAILY TAKE WITH FOOD Sertraline HCl (Zoloft) 20 Mg/1 Ml Oral.conc 100 MG PO DAILY Scheduled PRN Alprazolam (Alprazolam) 1 Mg Tablet 1 MG PO HS PRN PRN For Anxiety Dronabinol (Marinol) 5 Mg Capsule 5 MG PO TID PRN PRN For Bowel Movement Hydromorphone (Hydromorphone) 8 Mg Tablet 8 MG PO Q3H PRN PRN Pain Lorazepam (Lorazepam) 0.5 Mg Tablet 0.5 MG PO TID PRN PRN For Anxiety or Agitation Metoclopramide Inj (Metoclopramide Inj) 5 Mg/1 Ml Vial 5 MG PO Q6H PRN PRN For Nausea/Vomiting Objective Findings Exam Vital Sign - Last Date Time Temp Pulse Resp B/P Pulse Ox O2 Delivery O2 Flow Rate FiO2 09/02/16 14:01 36.8 89 18 109/70 95 OxyMask 2.50 Intake and Output 09/01/16 09/01/16 09/02/16 Cumulative From/Thru 15:00 23:00 07:00 08/27/16 16:32 - 09/02/16 06:02 Intake Total 1086 ml 836 ml 58571 ml Output Total 2400 ml 1755 ml 6335 ml Balance -1314 ml -919 ml 6250 ml Intake Oral 0 ml 0 ml 0 ml IV Total 1086 ml 836 ml 10927 ml Autotransfusion 250 ml Packed Cells 1085 ml Output Urine Total 2255 ml 1710 ml 4725 ml Drainage Total 145 ml 45 ml 610 ml Estimated Blood Loss 1000 ml # Bowel Movements 1 Objective obese, alert but mildly sedated General: Alert/Oriented x3 HEENT: PERRLA, EOMI, Scleral Anicteric, Mucous Membr Moist/Thomson (sipping clear liquids) Lungs: Clear to Auscultation Abdomen: Soft Neuro: Cranial Nerve 3-12 Intact, Other (was walking with walker due to weakness and thakkar) Extremities: Edema (2+) Skin: Other (chronic stasis dermatitis with covered wounds ant-tibs) Lab/Diagnostics Lab and Imaging results reviewed in detail in EMR. Patient/Family Conference Members Present Family Members Present patient Medical Team Members Present? [facility] Discussion/Goals of Care Discussion FAMILY UNDERSTANDING OF DISEASE: Hopeful that this is definitive surgery. He is overwhelmed with fatigue post op that surprises him. Appetite good. Pain management has required high dose meds. He is aware this will require a taper as out pt Time spent Total time 50 minutes; >50% face to face with patient and/or family, providing counselling regarding plans and recommendations, and in care coordination with his/her medical teams. I also spent an additional [ ] minutes counseling for advanced care planning with the patient/the patients family/the surrogate decision maker. copies to: Haven Fisher MD; Pat Phipps MD; Fausto Salvador MD, Deborah A MD Sep 02, 2016 16:19
--- NOTE | 2016-09-02 17:10 | PROG NOTE ---
[address] [address] PROGRESS NOTE PATIENT: DIANA CROWELL : 1965 MR#: [id number] ADMIT: 08/31/2016 JOB ID: [id number] INFECTIOUS DISEASE FOLLOWUP: DATE: 09/02/2016 REASON FOR FOLLOWUP: MSSA infection of port, right chest. INTERVAL HISTORY: The patient has had a great deal of problem with pain today related to his recent surgery, but the pain is just now coming under control. He denies any fevers, chills, cough or chest pain. He is having some clear liquids and has no abdominal pain. PHYSICAL EXAMINATION: Reveals an afebrile gentleman, in no acute distress. Temp 36.8, pulse 89, respiratory rate 16, blood pressure 109/70. He is in no acute distress. The patient appears to be in some pain, has a depressed mood clearly and a very flat affect. Oral cavity negative. Lungs clear. Cardiac tones without murmur. The old port site in the right chest is benign. Abdomen slightly distended, slightly tender. LABORATORY DATA: Labs include white count 12,000, platelet count 150. Creatinine 0.51. LFTs normal. IMPRESSION: The patient has had an methicillin-susceptible Staphylococcus aureus infection of the port. Though he had negative blood cultures, I think it is still reasonable to proceed and get a transesophageal echocardiogram to make absolutely sure there are not any valvular lesions before we discontinue his antibiotics. Note that it was a very severe port infection and it was a bit surprising perhaps the blood cultures were negative. Review of the literature and guidelines suggest this is a bit of an ambiguous situation where we might be able to just get away with two weeks of antibiotics given the negative blood cultures and celso it complete, but I think it is an equivocal situation and I would prefer to err on the side of caution in this very complicated man. RECOMMENDATIONS: 1. Ancef through at least tomorrow. 2. A MANE is set up for early tomorrow afternoon and I have discussed this with Cardiology. 3. If the MANE is negative, then tomorrow will be his last day of antibiotics. If the MANE is positive, we will need to treat for a total of six weeks. SHARLENE
[2016-09-02] MEDS: FENTANYL IVPUSH SCH (19:11)
[2016-09-02] MEDS: BUPIVACAINE MPF IVPUSH SCH (19:11)
[2016-09-02] MEDS: [UNRECOGNIZED DRUG - OTHER] IVPUSH SCH (19:11)
[2016-09-03] VITALS (21 sets, daily range): BP systolic 110–151; BP diastolic 66–81; PULSE 75–93; RESP 9–20; O2SAT 91–97
[2016-09-03] MEDS: Heparin 5,000 Unit/mL Inj SUBQ SCH ×3 (00:25→16:00)
[2016-09-03] MEDS: Sodium Chloride LOK Flush 10 mL Syringe IVFLUSH SCH ×3 (00:26→16:01)
[2016-09-03] MEDS: 0.9% Sodium Chloride 1,000 ML IV SCH ×3 (01:12→21:12)
[2016-09-03] MEDS: Lactated Ringer's 1,000 ML IV SCH ×3 (02:03→19:36)
[2016-09-03] MEDS: CeFAZolin 2 Gm/50 mL D5W Duplex Bag IV SCH ×3 (04:18→20:11)
[2016-09-03] MEDS: FENTANYL IVPUSH SCH ×2 (04:38→16:00)
[2016-09-03] MEDS: [UNRECOGNIZED DRUG - OTHER] IVPUSH SCH ×2 (04:38→16:00)
[2016-09-03] MEDS: BUPIVACAINE MPF IVPUSH SCH ×2 (04:38→16:00)
[2016-09-03 07:13] LABS: Magnesium 1.5 mg/dL (1.6-2.6)
[2016-09-03] MEDS ORDERED: Magnesium Sulf 4 Gm/100 mL H2O 4 GM in IV Premix 1 EACH IV ONE (07:45)
[2016-09-03] MEDS: Insulin LISPRO 300 Unit/3 mL Inj SUBQ SCH ×4 (08:00→22:00)
[2016-09-03] MEDS: Ondansetron 2 mg/mL 2 mL Inj IVPUSH PRN ×3 (08:16→22:43)
[2016-09-03] MEDS ORDERED: Magnesium Sulf 2 Gm/50mL Water 2 GM in IV Premix 1 EACH IV ONE (08:20)
--- NOTE | 2016-09-03 08:36 | PCM.PNSURG ---
Subjective Date of Service: Sep 03, 2016 Date of Service: Sep 03, 2016 Visit Information: Reason for Visit Bladder Cancer Surgery/Surgery Date Post-Op Day # 3 Date of Admission: Aug 31, 2016 at 16:45 Hospital Day # 4 Subjective: Mr Knutson reports doing better today. He's tired. He has passed "a lot" of flatus and had another BM. His pain is a bit a better at 6/10--he got behind this morning after having fallen asleep. He denies n/v on CLD. Gastrointestinal: No N/V, Passing Flatus, Passing Stool Pain Management: Epidural Objective Vital Sign- Last 8 Hours Date Time Temp Pulse Resp B/P Pulse Ox O2 Delivery O2 Flow Rate FiO2 09/03/16 06:52 16 97 09/03/16 05:09 18 95 09/03/16 05:08 18 95 09/03/16 04:21 36.6 85 16 116/73 97 OxyMask 2.50 09/03/16 00:47 36.9 93 18 110/66 96 OxyMask 2.50 Intake and Output- Last 8 Hour 09/03/16 Cumulative From/Thru 07:00 08/27/16 16:32 - 09/03/16 06:54 Intake Total 1709 ml 33809 ml Output Total 525 ml 8240 ml Balance 1184 ml 8064 ml Intake Oral 600 ml 1400 ml IV Total 1109 ml 47431 ml Autotransfusion 250 ml Packed Cells 1085 ml Output Urine Total 500 ml 6525 ml Drainage Total 25 ml 715 ml Estimated Blood Loss 1000 ml # Bowel Movements 2 General: Alert, Cooperative (appears much improved overall today) Abdomen: Benign, Soft (very obese), Ostomy pink & viable (draining yellow urine , mild blood tinged; stents in place), Other (ANURAG with scant serous fluid) Extremities: Warm, Edema Generalized Neuro: Cranial Nerves 2-12 nl Catheters: None Result Diagram: 09/02/16 0905 09/03/16 0620 Assessment & Plan Impression POD# 3 radical cystoprostatectomy, PLNDx, ileal conduit Problems: Plan Replete magnesium today - Very much appreciate hospitalist care of his medical problems After MANE today, he can have full liquids - By supper, he can have soft diet if he tolerates full liquids Will discuss with anesthesia team today re PCEA; I'd like him transitioned to PO med w IV push After PCEA removed, we discussed he should OOBTC - He should attempted ambulation with assist TID, though he was unsteady preoperatively - I recommended PT, but he stated he found them "annoying" and wanted to work with friend Winifred who apparently is retired from PT We discussed discharge criteria - Pain control on PO meds - Ambulation at his baseline preop - Tolerating diet by mouth VTE Prophylaxis: SCDs Resuscitation Status: CPR: Attempt Resuscitation Haven Fisher MD Sep 03, 2016 08:36
[2016-09-03] MEDS ORDERED: Propofol 10 mg/mL 20 mL Inj ONE (09:27)
[2016-09-03] MEDS: HYDROmorphone PCA 0.2 mg/mL 30 mL Inj IV PRN ×2 (10:45→17:39)
[2016-09-03] MEDS ORDERED: EPHEDrine Sulfate 50 mg/mL Inj IVPUSH PRN (14:00)
[2016-09-03] MEDS ORDERED: Phenylephrine 10,000 mCg/mL Inj IVPUSH PRN (14:00)
[2016-09-03] MEDS: 0.9% Sodium Chloride 250 ML IV SCH (14:35)
--- NOTE | 2016-09-03 15:02 | PCM.PALLBR ---
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 Plan will be to taper these this evening after his MANE. Restart his oral hydromorphone for breakthrough pain, 8 mg Q 3 hr prn. At least initially, he will also have backup breakthrough coverage with IV hydromorphone, 2 mg every 2 hours as needed. Anxiety-this has been an issue in the hospital more than at home. That being said he has been on lorazepam 0.5- 1 mg TID at home. Sertraline 100 mg Q day will restart on 09/04 Insomnia-tied to his anxiety- resume alprazolam 1 mg at HS prn. Also switch IV to oral lorazepam prn per his usual routine Nausea--an issue with last hosp-now not. Monitor as he resumes oral medications. MSSA bacteremia-last hospitalization. Port is out and he has been on antibiotics for nearly 2 weeks.He is scheduled for a MANE today to define if he is close to done with antibiotics. See infectious disease note for full details Goal will be to get him off of his benzodiazepams over the next few months and to get him on a fraction of his pain meds. Dr Salvador has been willing to manage these which helps the pt with driving distance. -DPOA/Advanced Directives/POLST--full code, Sherly- is defined as DPOAHC- spoke with her today and reviewed plans -Family/emotional support-Sherly -Spiritual support-he is not particularly interested Additional Medical Diagnoses with primary management by Hospitalist team include : #Acute/chronic pain-likely aggravated by decrease of epidural. Patient is not opioid linnette, increasing PACKING AND WRAPPING SUPERVISOR dosing to accommodate. #Bladder cancer #Lower extr weakness 09/01- resolved with decreased rate of epidural 09/02 #Acute blood loss anemia, Hgb 6.6 08/31, 8.9 09/02 #Recent port infection with MSSA earlier this month (port removed)-not up to MANE today #Type II diabetes mellitus #Hypothyroidism #Anxiety (unclear if he also has a history of depression) Problems: End of Life Preferences FULL CODE Disposition expects to go home Resuscitation Status Resuscitation Status: CPR: Attempt Resuscitation POLST Updates/Changes POLST Discussed with: Patient POLST Review Outcome: No Change . Pain: Mild Symptom management: Anxiety, Pain Total time 40 minutes; >50% face to face with patient and family, providing counselling regarding plans and recommendations, and in care coordination with his medical teams. Palliative Brief Note Date of Service Sep 03, 2016 . Returned to reevaluate patient. Prior to visiting, reviewed his updated records in the EMR in detail and received signout from prior palliative caregiver Spoke with his bedside nurse and then later with Dr. Fisher at bedside as well. On my arrival, patient was awake and alert. Appears comfortable though is pale. Vital signs noted. Skin is warm and dry. Physical exam otherwise remained stable. Reviewed plans for the next several days with Dr. Fisher and the patient. He is to have MANE later today and after that will begin to taper his epidural off as well as tapering off his PACKING AND WRAPPING SUPERVISOR. Reviewed plans for transition back to oral pain medications. Also received Dr. Sanchez's review of operative findings- so far all biopsies remain negative for residual/metastatic (though several remain outstanding) and his surgical margins were clear. Thomas Naqvi MD Sep 03, 2016 15:02
[2016-09-03] MEDS: LORazepam 0.5 mg Tablet PO PRN ×2 (17:39→22:43)
--- NOTE | 2016-09-03 17:48 | PCM.PNMED ---
Subjective Date of Service Sep 03, 2016 Subjective Pain is adequately controlled, bowels are moving no chest pain, no dyspnea, no nausea or vomiting. Exam Vital Signs Vital Sign - Last Date Time Temp Pulse Resp B/P Pulse Ox O2 Delivery O2 Flow Rate FiO2 09/03/16 17:26 36.8 82 16 151/81 96 Room Air 09/03/16 14:45 4.00 Intake and Output 09/02/16 09/02/16 09/03/16 Cumulative From/Thru 15:00 23:00 07:00 08/27/16 16:32 - 09/03/16 06:54 Intake Total 2010 ml 1709 ml 05935 ml Output Total 950 ml 430 ml 525 ml 8240 ml Balance -950 ml 1580 ml 1184 ml 8064 ml Intake Oral 800 ml 600 ml 1400 ml IV Total 1210 ml 1109 ml 37219 ml Autotransfusion 250 ml Packed Cells 1085 ml Output Urine Total 900 ml 400 ml 500 ml 6525 ml Drainage Total 50 ml 30 ml 25 ml 715 ml Estimated Blood Loss 1000 ml # Bowel Movements 1 2 Exam Gen.- A+ O 3 no apparent distress. Obese male lying in bed Head-atraumatic/normocephalic Eyes- open conjunctiva clear, pupils equal, nonicteric ENT- ears no deformity, nose no deformity Neck- supple/trach midline CVS- RRR no murmur or gallop Lungs-CTA, normal rate/effort GI- diminished bowel sounds, soft tender Musc- moving 4 no obvious deformity Neuro- cranial nerves II through XII intact to gross examination, nonfocal Skin- warm and dry, no rashes/lesions/wounds noted Psych- pleasant and appropriate, Lab and Diagnostics Result Diagram: 09/02/16 0905 09/03/16 0620 Assessment & Plan 51-year-old male admitted 08/31, s/p radical cystectomy and prostatectomy and ileal loop 09/01 for bladder cancer 09/02 patient's having poor pain control we need to increase HAM FACER, blood sugars less than 125 on current regimen, hemoglobin steady/elevated we will need to continue to monitor this. #Acute/chronic pain-likely aggravated by decrease of epidural. Patient is not opioid linnette, increasing HAM FACER dosing to accommodate. - Methadone was resumed 09/01 -Thank you palliative care with management of pain meds #Bladder cancer- s/p radical cystectomy and prostatectomy and ileal loop 08/31 for bladder cancer #Lower extr weakness 09/01- resolved with decreased rate of epidural 09/02 #Acute blood loss anemia, Hgb 6.6 08/31, 8.9 09/02 - stable, s/p 2 u of RBC 08/31 #Recent port infection with MSSA earlier this month (port removed)-not up to MANE today - as per Dr Cameron continue Ancef 2 gm IV until Sep 03 - Patient will need MANE, preferably to be done before September 03, to help us determine length of therapy. #Type II diabetes mellitus- Accuchecks, ISS, BS <100 #Hypothyroidism- Resume usual medication when able #Anxiety (unclear if he also has a history of depression) - Resume sertraline when able - IV lorazepam prn #Prophylaxis -DVT proph - SCD VTE Prophylaxis: SCDs VTE Mechanical Devices: Intermittant Pneumatic CD Resuscitation Status: CPR: Attempt Resuscitation Jorge Yu MD Sep 03, 2016 17:48
--- NOTE | 2016-09-03 18:10 | DRSVH ---
[facility] [address] [place] [place] [address] Echocardiogram Report Name: DIANA CROWELL te: 09/03/2016 Height: 73 in Hospital Exam Location: [facility] Weight: 289 lb Gender: Other BSA: 2.5 m2 : 1965 Age: 51 yrs BP: 116/73 mmHg Reason For Study: ENDOCARDITIS Ordering Physician: Performed By: Tay Molina Interpretation Summary No findings that would suggest endocarditis. Procedure: Informed consent for Transesophageal Echocardiogram, and use of a contrast agent as needed, was obtained prior to the procedure. The patient was brought to the [facility] in a fasting state. An intravenous line was placed. A topical anesthetic agent was used for oropharangeal anesthesia. A bite block was inserted. Sedation was managed by anesthesiologist; see anesthesiology notes for details. A 2D transesophageal echocardiogram with spectral and color flow Doppler was performed. A multifrequency, multiplane transesopheageal echocardiographic endoscope was inserted and manipulated in the standard fashion to achieve multiplane views. The usual views were obtained; basal, mid-esophageal, transgastric and aortic views. The patient's vital signs, including blood pressure, heart rate, pulse oximetry and cardiac rhythm were monitored throughout the procedure and remained stable. The patient tolerated the procedure well without evidence of orophangeal or esophageal trauma. There is no prior echocardiogram noted for this patient. The patient was in normal sinus rhythm during the exam. There were no complications. Left Ventricle: The left ventricle is normal in size, wall thickness, and systolic function without any focal wall motion abnormalities. The ejection fraction is estimated to be 55-60%. Right Ventricle: The right ventricle is normal in size and function. Atria: No thrombus is detected in the left atrial appendage. No left atrial mass or thrombus visualized. Mitral Valve: The mitral valve is normal in structure and function. There is no vegetation seen on the mitral valve. Aortic Valve: The aortic valve is trileaflet. The aortic valve is mildly calcified. There is no aortic valvular vegetation. Tricuspid Valve: The tricuspid valve is normal in structure and function. There is no tricuspid valve vegetation. Pulmonic Valve: The pulmonic valve is normal in structure and function. There is no vegetation on the pulmonic valve. Great Vessels: The aortic root is normal size. Pericardium/ Pleura: There is no pericardial effusion. Reading Physician:ALPHONSE
--- NOTE | 2016-09-03 19:44 | PROG NOTE ---
[address] [address] PROGRESS NOTE PATIENT: DIANA CROWELL : 1965 MR#: [id number] ADMIT: 08/31/2016 JOB ID: [id number] DATE: 09/03/2016 EPIDURAL MANAGEMENT NOTE: The patient had an uneventful night. Pain remains adequately controlled with his epidural, in addition to his Dilaudid TELEVISION CAMERAMAN, and his methadone. Apparently the patient has now been passing flatus. After discussion with Dr. Fisher, it was decided that we will try to wean off the patient's epidural today. The patient expresses agreement with this decision. The patient states that he is tolerating p.o. intake without nausea or vomiting. He states that his lower extremity strength feels mostly normal. Objectively, epidural site is clean, dry and intact. Patient has an epidural of 0.0625% bupivacaine with fentanyl 2 mcg per mL, running at a rate of 6 mL an hour with a ____4 ml__ demand dose. He also has Dilaudid TELEVISION CAMERAMAN written for. The patient's vital signs are within normal limits. IMPRESSION AND PLAN: This is a 51-year-old gentleman who is postop day three from a cystectomy with ileal loop and now being transitioned to p.o. intake and oral pain medications. We will plan to wean down the epidural today gradually and once epidural infusion is off for a little bit, assuming the patient's pain is adequately managed, the catheter will be discontinued. Thank you for allowing us to participate in the care of this patient. SHARLENE
--- NOTE | 2016-09-03 20:25 | PCM.HPANE ---
Patient Data Surgeon Admitting Provider:Haven Fisher MD Attending Provider:Haven Fisher MD Primary Care Physician:Fausto Salvador MD Other Provider:Joan Ely Anesthesia Reason for Visit Bladder Cancer Ht/WT & BMI Height (Feet): 6 Height (Inches): 1.00 Weight (Kilograms): 130.900 Body Mass Index 38.04 Allergies Coded Allergies: fentanyl (Verified Adverse Reaction, Intermediate, Delirium, 08/31/16) had fentanyl during his last procedure and tolerated fine. dr broderick assessed and doesnt believe it to be a true allergy. patient told him twitching with the patch. Past Anesthesia History Anesthesia History: Denies:: Abnormal Airway, Anesthesia Reactions, Difficult Intubation, Fam Anesthesia Reaction, Fam Malignant Hypertherm, Malignant Hyperthermia Diabetes History Hx Diabetes?: Yes (insulin) Type of Diabetes: Type I Glycemic Control: Insulin Dependent Current Bedside Blood Glucose: 89 MRSA MRSA: No Medications Home Meds Incl Beta April: No Active Scripts Olanzapine 5 Mg Tablet5 Mg PO DAILY #30 TABLET Ref 0 Prov:Thomas Worthington DO 08/26/16 Dronabinol (Marinol)5 Mg Capsule5 Mg PO TID PRN For Bowel Movement #90 CAPSULE Ref 0 Prov:Thomas Worthington DO 08/26/16 Metoclopramide Inj 5 Mg/1 Ml Vial5 Mg PO Q6H PRN For Nausea/Vomiting #60 VIAL Prov:Thomas Worthington DO 08/26/16 Methadone 5 Mg Ismopr99 Mg PO Q8H #0 TABLET Prov:Pancho Linton DO 08/26/16 Hydromorphone 8 Mg Tablet8 Mg PO Q3H PRN Pain #60 TABLET Ref 0 Prov:Daniel Benson MD 07/23/16 Levothyroxine 50 Mcg Fvxnhl02 Mcg PO DAILYAC 14 Days Prov:Katherine Martinez DO 07/19/16 Oxybutynin Chloride 5 Mg Tablet5 Mg PO TID #90 TABLET Prov:Luci Brown DO 06/27/16 Reported Medications Insulin Lispro (Humalog Kwikpen)200 Unit/Ml (3 Ml) Insuln.pen20 Unit SQ TIDWM 08/31/16 Cefazolin Sodium (Cefazolin IV)1 Gm Vial6 Gm IV Q24H Ref 0 08/31/16 Furosemide 40 Mg Zojnhh35 Mg PO DAILY 08/20/16 Potassium Chloride ER 20 Meq Tablet.er20 Meq PO DAILY Ref 0 TAKE WITH FOOD 08/20/16 Insulin Detemir (Levemir Flextouch)100 Unit/1 Ml Insuln.pen65 Unit SQ DAILY 08/20/16 Lorazepam 0.5 Mg Tablet0.5 Mg PO TID PRN For Anxiety or Agitation Ref 0 08/20/16 Alprazolam 1 Mg Tablet1 Mg PO HS PRN For Anxiety Ref 0 08/20/16 Sertraline HCl (Zoloft)20 Mg/1 Ml Oral.msfg741 Mg PO DAILY #1 BOTTLE Ref 0 08/20/16 History History of ENT Problems?: No HEENT History: Denies:: Abnormal Airway Cataracts Difficult Intubation Dysphagia Hearing Problem Sinus Problem TMJ Denture Type: None Teeth Condition: Within Normal Limits Hx of Heart Problems?: No Cardiovascular History: Positive for:: Edema (currently ) Denies:: AICD Abdominal Aortic Aneurism Atrial Fibrillation Cardiac Surgery Chest Pain Congestive Heart Failure Coronary Artery Disease Heart Murmur Hypertension Irregular Heartbeat Pacemaker Peripheral Vascular Rheumatic Fever Thrombophlebitis Valvular Heart Disease Other Cardiac History: infected portacath removed 08/2016- PICC line placed for ongoing ABX tx Hx of Respiratory Problem?: No Respiratory History: Positive for:: Pneumonia Denies:: Asthma COPD Chest Surgery Cough Dyspnea Emphysema Hemoptysis Oxygen Administration Pulmonary Embolism Tuberculosis Use of C-PAP Machine Use of Inhalers / NEBS Hx Neurologic Problems?: Yes Neurological History: Positive for:: Headaches (migraines from high pitched noise) Denies:: Alzheimer's Disease CVA Dementia Dizziness Multiple Sclerosis Parkinson's Disease Peripheral Neuropathy Seizures TIA Hx of GI Problems?: Yes Gastrointestinal History: Denies:: Cirrhosis Diverticulitis Gall Bladder Disease Gastroesphageal Reflux Gastrointestinal Bleeding Heartburn Hepatitis Hiatal Hernia Liver Disease Rectal Bleeding Hx of Problems?: Yes Genitourinary History: Denies:: HX of Hemodialysis Kidney Stones Urinary Tract Infection HX of Peritoneal Dialysis: No Other Pertinent History: bladder cancer current admission problem- hematuria/spasms Male Hx: Denies:: Prostate Problems Scrotal Mass Testicular Surgery Skin History: Denies:: History Skin Disorders? Pressure Ulcers Hx Musculoskeletal Problems?: No Musculoskeletal History: Denies:: Back Injury Degenerative Joint Fibromyalgia Joint Replacement Musculoskeletal Trauma Myasthenia Gravis Osteoarthritis Rheumatoid Arthritis Systemic Lupus Hx of Psycho/Social Problems?: Yes Psycho Social History: Positive for:: Anxiety (newly on lorazepam ) Denies:: Bipolar Disorder Hx Depression Suicide Attempt Hx Surgeries?: Yes (shoulder surgery 11/28, cystoscopy 08/01/15) Hx Any Other Health Problems?: Yes Other History: Positive for:: Cancer (bladder) Hospitalization Thyroid Disease (hypothyroid) Denies:: Endocrine Disease History Blood Transfusions: Positive for:: Blood Transfusions Denies:: Accept Blood Products? Blood Transfuse Reaction Hx Diabetes: Yes (insulin)Bedside Blood Glucose: 89 Hx Alcohol Use: Yes (no current use)Hx Substance Use: No Smoking Status: Never Smoker Have You Smoked inLast 12 mo: No Stop/Bang P-Blood Pressure: treated: Yes B- Body Mass Index > 35 kg/m2: Yes A- Age over 50: Yes N- Neck Large Circumference: No G- Gender Male: Yes Risk Assessment Category Category 1A: Patient has history of documented sleep apnea, and HAS NOT received any narcotic, sedative or anesthesia administration during this stay. Category 1B: Patient has history of documented sleep apnea, and HAS received any narcotic , sedative or anesthesia administration during this stay Category 2: Patient has SUSPECTED Obstructive Sleep Apnea, and HAS received any narcotic , sedative or anesthesia administration during this stay. Category 3: Patient has SUSPECTED Obstructive Sleep Apnea and HAS NOT received narcotic, sedative or anesthesia administration during this stay. Category 4: Outpatient in Procedural Areas with known sleep apnea or who screen positive for High Risk via the STOP/BANG questionnaire. Exam Exam Vital Signs Vital Signs Date Time Temp Pulse Resp B/P Pulse Ox O2 Delivery O2 Flow Rate FiO2 09/03/16 13:30 81 16 137/79 91 Room Air 09/03/16 10:46 18 96 09/03/16 06:52 16 97 General Appearance: Alert, Oriented X3, Cooperative, No Acute Distress HEENT/AIRWAY: MP 3 Lungs: Normal Air Movement Heart: Exam Unremarkable Meds/Labs/Diagnostics Admission Meds Current Medications Fentanyl Citrate 200 mcg/ Bupivacaine HCl 12.5 ml/Sodium Chloride 100 ml @ 6 mls /hr Q10H IVPUSH Last administered on 09/03/16t 04:38; Start 09/02/16 at 20:00 Magnesium Sulfate/ Premix (Magnesium Sulf 4 Gm/100 mL H2O/ IV Premix) 100 ml @ 33.333 mls/ hr ONCE ONCE IV Last administered on 09/03/16t 08:35; Start at 07:45; Stop 09/03/16 at 10:44; Status DC Bedside Blood Glucose: 89 Labs Test 08/31/16 06:44 09/02/16 09:05 09/02/16 11:28 09/03/16 06:20 Prothrombin Time 10.0sec (8.1-12.5) Prothromb Time International Ratio 0.94ratio Activated Partial Thromboplast Time 26.6sec (22.8-33.0) Total Bilirubin 0.2mg/dL (0.0-1.2) Aspartate Amino Transf (AST/SGOT) 28U/L (0-50) Alanine Aminotransferase (ALT/SGPT) 10U/L (0-44) Alkaline Phosphatase 232U/L (25-150) Total Protein 7.2g/dL (6.4-8.4) Albumin 2.9g/dL (3.4-5.0) White Blood Count 12.6th/mm3 (3.8-10.1) Red Blood Count 3.05mil/mm3 (4.40-5.80) Hemoglobin 8.9g/dL (13.8-17.2) Hematocrit 27.5% (41.0-50.0) Mean Corpuscular Volume 90.2fL (81-100) Mean Corpuscular Hemoglobin 29.2pg (27.0-35.0) Mean Corpuscular Hemoglobin Concent 32.4% (32.0-37.0) Red Cell Distribution Width 16.1% (12.3-15.4) Platelet Count 150bil/L (150-400) Body Fluid Creatinine 0.52mg/dL Sodium Level 136mEq/L (134-144) Potassium Level 4.3mEq/L (3.5-5.2) Chloride Level 101mEq/L (97-108) Carbon Dioxide Level 25mmol/L (18-29) Blood Urea Nitrogen 12mg/dL (6-24) Creatinine 0.48mg/dL (0.76-1.27) Estimat Glomerular Filtration Rate 196mL/min (>59) Glucose Level 88mg/dL (60-99) Calcium Level 7.5mg/dL (8.5-10.1) Magnesium Level 1.5mg/dL (1.6-2.6) Plan Impression Patient chart reviewed, patient interviewed and anesthestic plan with risks, benefits, and alternatives discussed, and informed consent obtained. NPO per Anesth. Guidelines: Yes ASA Physical Status: ASA3 Severe Disease Anesthetic Plan: GA, MAC Bene/Risks/Altern/Consents: Yes HP Complete Prior to Induction: Yes Jose D De Los Santos MD Sep 03, 2016 14:00
--- NOTE | 2016-09-03 20:26 | PCM.ANEP1 ---
Post Anesthesia PACU Phase 1 Assessment Vital Signs Vital Signs Date Time Temp Pulse Resp B/P Pulse Ox O2 Delivery O2 Flow Rate FiO2 09/03/16 20:05 16 96 09/03/16 19:37 16 96 09/03/16 17:26 36.8 82 16 151/81 96 Room Air 09/03/16 16:03 16 97 09/03/16 15:30 78 16 140/76 97 Room Air 09/03/16 15:15 81 14 138/75 96 Room Air 09/03/16 15:00 77 20 139/75 96 Room Air 09/03/16 14:45 75 12 130/73 96 Nasal Cannula 4.00 09/03/16 14:31 82 9 151/79 09/03/16 13:30 81 16 137/79 91 Room Air Anesthetic Administered: GA, MAC, Epidural Level of Alertness: Awake, talking FRITZ's with Equal Strength: Yes Pain: Yes Pain Scale Score: 2 Nausea or Vomiting: No CV Function & Hydration Stable: Yes Airway Device: Oxygen Delivery: Nasal Cannula Lungs: Normal Air Movement Dermatome Level: Full Sensation PACU Phase 2 Assessment Complications: No Follow up Care: N/A Patient Instructions Provided: N/A Jose D De Los Santos MD Sep 03, 2016 20:26
[2016-09-04] MEDS: Sodium Chloride LOK Flush 10 mL Syringe IVFLUSH SCH ×4 (00:30→23:44)
[2016-09-04] MEDS: Heparin 5,000 Unit/mL Inj SUBQ SCH ×3 (01:15→17:23)
[2016-09-04] MEDS: BUPIVACAINE MPF IVPUSH SCH (02:00)
[2016-09-04] MEDS: [UNRECOGNIZED DRUG - OTHER] IVPUSH SCH (02:00)
[2016-09-04] MEDS: FENTANYL IVPUSH SCH (02:00)
[2016-09-04] MEDS: CeFAZolin 2 Gm/50 mL D5W Duplex Bag IV SCH (03:26)
[2016-09-04] MEDS: HYDROmorphone 1 mg/mL Inj IVPUSH PRN ×8 (03:34→22:49)
[2016-09-04 05:00] VITALS: BP 133/79; PULSE 88; RESP 16; O2SAT 96
[2016-09-04] MEDS: 0.9% Sodium Chloride 1,000 ML IV SCH (05:38)
[2016-09-04 06:31] LABS: Magnesium 1.5 mg/dL (1.6-2.6)
[2016-09-04] MEDS: LORazepam 0.5 mg Tablet PO PRN ×3 (06:37→18:24)
[2016-09-04] MEDS: Lactated Ringer's 1,000 ML IV SCH ×2 (06:42→18:03)
[2016-09-04] MEDS: Insulin LISPRO 300 Unit/3 mL Inj SUBQ SCH ×4 (08:00→22:00)
[2016-09-04] MEDS: Ondansetron 2 mg/mL 2 mL Inj IVPUSH PRN (08:46)
[2016-09-04 11:11] VITALS: BP 148/85; PULSE 88; RESP 17; O2SAT 96
--- NOTE | 2016-09-04 12:21 | PCM.PALLBR ---
Palliative Care Recommendation Summary of palliative recommendations: -Symptom management (Pain/other) Pain- epidural and SAP BW ARCHITECT discontinued on 09/03. Increased discomfort after lying on his side for a long time during his MANE. Continue methadone 15 mg Q 8 hours. Continue oral hydromorphone for breakthrough pain, 8 mg Q 3 hr prn. Also continue backup breakthrough coverage with IV hydromorphone, 2 mg but for today increase frequency to every 1 hour as needed. We will monitor his usage and response and anticipate cutting back on his IV breakthrough pain medication as soon as his current complaints stabilize. Anxiety-this has been an issue in the hospital more than at home. That being said he has been on lorazepam 0.5- 1 mg TID at home. Sertraline 100 mg Q day restarted on 09/04 Insomnia-tied to his anxiety- resumed alprazolam 1 mg at HS prn and oral lorazepam prn per his usual routine Nausea--an issue with last hospitalization- now not. Monitor as he resumes oral medications. Incentive spirometry ordered; physical therapy to resume today. MSSA bacteremia- last hospitalization. Port is out and he has been on antibiotics for nearly 2 weeks.MANE on 09/03 without evidence of vegetations. Anticipate discontinuation of antibiotics soon per infectious disease Goal will be to get him off of his benzodiazepams over the next few months and begin extended taper of his pain meds. Dr Salvador has been willing to manage these which helps the pt with driving distance. -DPOA/Advanced Directives/POLST--full code, Sherly- is defined as DPOAHC- spoke with her today and reviewed plans -Family/emotional support-Sherly -Spiritual support-he is not particularly interested Additional Medical Diagnoses with primary management by Hospitalist team include : #Acute/chronic pain-likely aggravated by decrease of epidural. Patient is not opioid linnette, increasing SAP BW ARCHITECT dosing to accommodate. #Bladder cancer #Lower extr weakness 09/01- resolved with decreased rate of epidural 09/02 #Acute blood loss anemia, Hgb 6.6 08/31, 8.9 09/02 #Recent port infection with MSSA earlier this month (port removed)-not up to MANE today #Type II diabetes mellitus #Hypothyroidism #Anxiety (unclear if he also has a history of depression) Problems: End of Life Preferences FULL CODE Disposition expects to go home Resuscitation Status Resuscitation Status: CPR: Attempt Resuscitation POLST Updates/Changes POLST Discussed with: Patient POLST Review Outcome: No Change . Pain: Severe Symptom management: Anxiety, Pain Total time 35 minutes; >50% face to face with patient , providing counselling regarding plans and recommendations, and in care coordination with his medical teams. Palliative Brief Note Date of Service Sep 04, 2016 . Returned to reevaluate patient. Prior to visiting, reviewed his updated records in the EMR and discussed his status in detail with his nurse. Nursing reports that he had an uncomfortable night and still was complaining of inadequate pain relief this morning. No other symptoms such as dyspnea, nausea , emesis, etc. When I arrived, patient is lying in bed, awake, alert and oriented. Remains quite pale. Continues to complain of pain- says this developed yesterday during his MANE and he has never completely gotten ahead of the pain since that time. He is concerned that his epidural and SAP BW ARCHITECT were discontinued too early or too quickly and we talked about this- he knows that he needs to make progress, getting off IVs, mobilizing, etc. so that he can get home. Discussed options for adjusting his pain medications. On exam, vital signs noted. Skin is warm and dry. Head and neck exam primarily remarkable for his pallor. Lungs clear anterolaterally, heart sounds regular, abdomen obese, soft, tender in the lower quadrants but no peritoneal signs. Extremities with diffuse puffiness and edema. Laboratories reviewed in detail. Thomas Naqvi MD Sep 04, 2016 12:21
--- NOTE | 2016-09-04 12:39 | PROG NOTE ---
[address] [address] PROGRESS NOTE PATIENT: DIANA CROWELL : 1965 MR#: [id number] ADMIT: 08/31/2016 JOB ID: [id number] DATE: 09/04/2016 INFECTIOUS DISEASE FOLLOWUP NOTE: REASON FOR FOLLOWUP: MSSA infection, right chest port catheter. INTERVAL HISTORY: The patient has now completed his full two weeks of IV antibiotics aimed at MSSA following removal of a grossly infected right chest port. He has no fevers or chills at this point. No significant pulmonary complaint. He still has a great deal of lower abdominal pain, however, and he reports that became worse yesterday following the positioning required for his transesophageal echo. PHYSICAL EXAMINATION: Reveals an afebrile gentleman, who has been afebrile throughout his hospital stay. His temperature is 36.7, pulse is 88, respiratory rate 16, blood pressure 133/79. He is saturating 96% on room air. He is in no acute distress. Examination of the mental status reveals he is still depressed, with a flat affect. Oral cavity with a coated tongue, otherwise negative. His left upper extremity PICC appears benign. The site of the right port was examined and the 2 cm x 1 cm x 0.5 cm deep wound is healing quite well. There is no evidence of inflammation or purulence. Lungs are clear. Cardiac tones distant but without murmur. Abdomen is notable for the ileal conduit as well as a ANURAG drain. The wound appears well approximated by hong. Along the inferior aspect of the midline abdominal wound there is some mild erythema. LABORATORIES: Include a white count which is stable at 12,600. It jumped after the surgery on the and has been slowly declining from 16 to 13, to 12, but the 12 is the last white count we have and it is now 2 days old. There was no differential white count with those CBCs. Micro studies: We have no new micro to report on this patient. Recall that he did have MSSA at the site of his infected port but blood cultures done at that time were negative. Transesophageal echo was done yesterday and was normal. There are no valvular abnormalities. The histopath from his surgery reveals, of course, he did have bladder cancer that was found on the path specimens from the bladder itself, but all the additional samples that were taken were negative. IMPRESSION: This patient has received a two week course of appropriate therapy for the MSSA port infection, which at this point appears completely resolved. His mild leukocytosis is likely secondary to his recent surgery and I see no reason no reason to suspect ongoing infection and no reason to continue antibiotics. RECOMMENDATIONS: 1. Will go ahead and discontinue his cefazolin. 2. The patient is ready for discharge from an ID point of view. 3. ID will go ahead and sign off at this time. Thank you very much.
[2016-09-04 14:16] VITALS: BP 168/84; PULSE 100; RESP 19; O2SAT 94
[2016-09-04] MEDS: 0.9% Sodium Chloride 250 ML IV SCH (14:35)
--- NOTE | 2016-09-04 16:15 | PCM.PNSURG ---
Subjective Date of Service: Sep 04, 2016 Date of Service: Sep 04, 2016 Visit Information: Reason for Visit Bladder Cancer Surgery/Surgery Date Post-Op Day #4 Date of Admission: Aug 31, 2016 at 16:45 Hospital Day #5 Subjective: Pt reports his pain is not well controlled and he is tired. He was given pain medication during exam, states his pain right now is a 6/10. He has passed a great deal of flatus however no BM. He has not been eating much as he states he does not have an appetite. He denies any nausea or vomiting at this time, however states food has been causing him nausea. Gastrointestinal: Passing Flatus Pain Management: PO, IV Push Objective Vital Sign- Last 8 Hours Date Time Temp Pulse Resp B/P Pulse Ox O2 Delivery O2 Flow Rate FiO2 09/04/16 14:16 36.8 100 19 168/84 94 Room Air 09/04/16 11:11 36.7 88 17 148/85 96 Room Air Intake and Output- Last 8 Hour 09/04/16 Cumulative From/Thru 07:00 08/27/16 16:32 - 09/04/16 05:46 Intake Total 1134 ml 44910 ml Output Total 64504 ml Balance 1134 ml 7758 ml Intake Oral 2000 ml IV Total 1134 ml 93836 ml Autotransfusion 250 ml Packed Cells 1085 ml Output Urine Total 8475 ml Drainage Total 805 ml Estimated Blood Loss 1000 ml # Bowel Movements 2 General: Alert, Oriented X3, Cooperative Abdomen: Benign, Soft (ostomy site pink and viable, draining yellow blood tinged urine, stents are in place. ANURAG with scant serous drainage) Extremities: Warm, Edema Generalized Neuro: Cranial Nerves 2-12 nl Catheters: None Result Diagram: 09/04/16 0430 09/04/16 0430 Assessment & Plan Impression POD #4 Radical cystoprostatectomy, pelvic lymph node dissection, ileal conduit Problems: Plan Greatly appreciate hospitalist continuing to follow pt He is on soft diet, he is ok to advance as tolerated however today he reported nausea and no appetite. Encouraged increased intake and fluids. We will continue to try to control pain with PO and IV pain medications. He has not been OOB as he states he does not feel like it. -We discussed the significance of ambulation -He did not want PT at first but feels it is needed. Discussed that he will very likely be here through the weekend, potentially discharge on Wednesday or early next week. VTE Prophylaxis: SCDs Resuscitation Status: CPR: Attempt Resuscitation Paulina Duran PA-C Sep 04, 2016 16:15
[2016-09-04 17:42] VITALS: BP 146/79; PULSE 87; RESP 17; O2SAT 97
[2016-09-04] MEDS ORDERED: Magnesium Sulf 4 Gm/100 mL H2O 4 GM in IV Premix 1 EACH IV ONE (18:15)
--- NOTE | 2016-09-04 18:17 | PCM.PNMED ---
Subjective Date of Service Sep 04, 2016 Subjective Weaning the pain regimen was too aggressive. No dyspnea, no chest pain, coughing some but thinks that is a good thing but causing pain. No nausea or vomiting. Bowels are still moving and working. Exam Vital Signs Vital Sign - Last Date Time Temp Pulse Resp B/P Pulse Ox O2 Delivery O2 Flow Rate FiO2 09/04/16 17:42 36.9 87 17 146/79 97 Room Air 09/03/16 21:20 2.00 Intake and Output 09/03/16 09/03/16 09/04/16 Cumulative From/Thru 15:00 23:00 07:00 08/27/16 16:32 - 09/04/16 05:46 Intake Total 600 ml 1134 ml 50200 ml Output Total 2040 ml 05263 ml Balance -1440 ml 1134 ml 7758 ml Intake Oral 600 ml 2000 ml IV Total 1134 ml 11045 ml Autotransfusion 250 ml Packed Cells 1085 ml Output Urine Total 1950 ml 8475 ml Drainage Total 90 ml 805 ml Estimated Blood Loss 1000 ml # Bowel Movements 0 2 Exam Gen.- A+ O 3 no apparent distress. Obese male lying in bed Head-atraumatic/normocephalic Eyes- open conjunctiva clear, pupils equal, nonicteric ENT- ears no deformity, nose no deformity Neck- supple/trach midline CVS- RRR no murmur or gallop Lungs-CTA, normal rate/effort GI- diminished bowel sounds, soft tender Musc- moving 4 no obvious deformity Neuro- cranial nerves II through XII intact to gross examination, nonfocal Skin- warm and dry, no rashes/lesions/wounds noted Psych- pleasant and appropriate, Lab and Diagnostics Result Diagram: 09/04/16 0430 09/04/16 0430 Cardiac Echo Impressions Echocardiogram Report Name: DIANA CROWELL JStudy Da te: 09/03/2016 Height: 73 in Hospital Exam Location: [facility] Weight: 289 lb Gender: Other BSA: 2.5 m2 : 1965 Age: 51 yrs BP: 116/73 mmHg Reason For Study: ENDOCARDITIS Ordering Physician: Performed By: Tay Molina Interpretation Summary No findings that would suggest endocarditis. Procedure: Informed consent for Transesophageal Echocardiogram, and use of a contrast agent as needed, was obtained prior to the procedure. The patient was brought to the [facility] in a fasting state. An intravenous line was placed. A topical anesthetic agent was used for oropharangeal anesthesia. A bite block was inserted. Sedation was managed by anesthesiologist; see anesthesiology notes for details. A 2D transesophageal echocardiogram with spectral and color flow Doppler was performed. A multifrequency, multiplane transesopheageal echocardiographic endoscope was inserted and manipulated in the standard fashion to achieve multiplane views. The usual views were obtained; basal, mid-esophageal, transgastric and aortic views. The patient's vital signs, including blood pressure, heart rate, pulse oximetry and cardiac rhythm were monitored throughout the procedure and remained stable. The patient tolerated the procedure well without evidence of orophangeal or esophageal trauma. There is no prior echocardiogram noted for this patient. The patient was in normal sinus rhythm during the exam. There were no complications. Left Ventricle: The left ventricle is normal in size, wall thickness, and systolic function without any focal wall motion abnormalities. The ejection fraction is estimated to be 55-60%. Right Ventricle: The right ventricle is normal in size and function. Atria: No thrombus is detected in the left atrial appendage. No left atrial mass or thrombus visualized. Mitral Valve: The mitral valve is normal in structure and function. There is no vegetation seen on the mitral valve. Aortic Valve: The aortic valve is trileaflet. The aortic valve is mildly calcified. There is no aortic valvular vegetation. Tricuspid Valve: The tricuspid valve is normal in structure and function. There is no tricuspid valve vegetation. Pulmonic Valve: The pulmonic valve is normal in structure and function. There is no vegetation on the pulmonic valve. Great Vessels: The aortic root is normal size. Pericardium/ Pleura: There is no pericardial effusion. Reading Physician:PM Assessment & Plan 51-year-old male admitted 08/31, s/p radical cystectomy and prostatectomy and ileal loop 09/01 for bladder cancer 09/02 patient's having poor pain control we need to increase [employer], blood sugars less than 125 on current regimen, hemoglobin steady/elevated we will need to continue to monitor this. 09/03 aggressive regimen of weaning [employer] and epidural plan otherwise medically stable. MANE was performed. 09/04 wean seem too aggressive for patient. MANE was negative, discontinue Ancef per infectious disease. #Acute/chronic pain-likely aggravated by decrease of epidural. Patient is not opioid linnette, increasing [employer] dosing to accommodate. - Methadone was resumed 09/01 -Thank you palliative care with management of pain meds #Bladder cancer- s/p radical cystectomy and prostatectomy and ileal loop 08/31 for bladder cancer -Management per Dr. Phillip TAVERAS #Lower extr weakness 09/01- resolved with decreased rate of epidural 09/02. Physical therapy to see and mobilize 09/04 #Acute blood loss anemia, Hgb 6.6 08/31, 8.9 09/02 - stable, s/p 2 u of RBC 08/31 #Recent port infection with MSSA earlier this month (port removed)-not up to MANE today - as per Dr Cameron continue Ancef 2 gm IV until Sep 03 -MANE completed 09/03 negative #Type II diabetes mellitus- Accuchecks, ISS, BS right around the 100 changes. #Hypothyroidism- Resume usual medication when able #Anxiety (unclear if he also has a history of depression) - Resume sertraline when able - IV lorazepam prn #Prophylaxis -DVT proph - SCD VTE Prophylaxis: SCDs VTE Mechanical Devices: Intermittant Pneumatic CD Resuscitation Status: CPR: Attempt Resuscitation Jorge Yu MD Sep 04, 2016 18:17
[2016-09-04 20:07] VITALS: BP 129/74; PULSE 86; RESP 18; O2SAT 98
[2016-09-05] MEDS: Heparin 5,000 Unit/mL Inj SUBQ SCH ×3 (00:56→16:48)
[2016-09-05] MEDS: HYDROmorphone 1 mg/mL Inj IVPUSH PRN ×7 (01:04→20:58)
[2016-09-05] MEDS: Lactated Ringer's 1,000 ML IV SCH ×3 (04:03→22:25)
[2016-09-05 05:17] VITALS: BP 133/79; PULSE 88; RESP 19; O2SAT 96
[2016-09-05 05:48] LABS: BASOPHILS % (AUTO) 0.4 % (0-3); EOSINOPHILS % (AUTO) 4.2 % (0-5); MONOCYTES % (AUTO) 9.2 % (4-12); Mean Corpuscular Hemoglobin 29.1 pg (27.0-35.0); Mean Corpuscular Volume 86.7 fL (81-100); NEUTROPHILS % (AUTO) 71.3 % (40-74); Platelet Count 168 bil/L (150-400)
[2016-09-05 06:11] LABS: Magnesium 1.7 mg/dL (1.6-2.6)
[2016-09-05] MEDS: LORazepam 0.5 mg Tablet PO PRN ×3 (06:26→22:34)
[2016-09-05] MEDS: Insulin LISPRO 300 Unit/3 mL Inj SUBQ SCH ×4 (08:00→22:00)
[2016-09-05] MEDS: Sodium Chloride LOK Flush 10 mL Syringe IVFLUSH SCH ×2 (08:30→16:47)
--- NOTE | 2016-09-05 09:36 | PROG NOTE ---
[address] [address] PROGRESS NOTE PATIENT: DIANA CROWELL : 1965 MR#: [id number] ADMIT: 08/31/2016 JOB ID: [id number] DATE: 09/05/2016 SUBJECTIVE: Postop day five, cystoprostatectomy and ileal conduit diversion. LABORATORY VALUES: Hematocrit steadily improving, now at 30.07. Electrolytes all within normal limits. Creatinine remains low at 0.38. PHYSICAL EXAMINATION: On examination, the abdomen is soft. Ileal conduit appears healthy. Principal problem at this time is pain control, which is not unexpected. The Hospitalists and Palliative Care had been ordering his analgesics, and they are still working to achieve a balance that will give him acceptable pain control, and yet still allow ambulation. On examination, bowel sounds are present. The patient is passing gas. He is tolerating fluids, but has no appetite at this time. His dependent edema is steadily improving. IMPRESSION: Postoperative day five, cystoprostatectomy with ileal conduit diversion. Parental problem pain control. Surgically, he is doing very well. PLAN: The plan is to increase ambulation, increase diet, and remove his Sylvester-Montero drain.
[2016-09-05] MEDS: Ondansetron 2 mg/mL 2 mL Inj IVPUSH PRN (09:42)
[2016-09-05 11:47] VITALS: BP 149/86; PULSE 87; RESP 19; O2SAT 95
[2016-09-05] MEDS: 0.9% Sodium Chloride 250 ML IV SCH (14:10)
--- NOTE | 2016-09-05 15:16 | PCM.PNMED ---
Subjective Date of Service Sep 05, 2016 Subjective Patient still having substantial pain. He has pretty good pain regimen and I will bring this to nurse's attention to give IV Dilaudid up to every hour 2 mg. Otherwise medically stable. No chest pain, no dyspnea no nausea or vomiting. His abdominal pain is major problem. Exam Vital Signs Vital Sign - Last Date Time Temp Pulse Resp B/P Pulse Ox O2 Delivery O2 Flow Rate FiO2 09/05/16 14:38 Room Air 09/05/16 11:47 36.8 87 19 149/86 95 09/03/16 21:20 2.00 Intake and Output 09/04/16 09/04/16 09/05/16 Cumulative From/Thru 15:00 23:00 07:00 08/27/16 16:32 - 09/05/16 06:23 Intake Total 1600 ml 1836 ml 1222 ml 92991 ml Output Total 3150 ml 3680 ml 1860 ml 02859 ml Balance -1550 ml -1844 ml -638 ml 3726 ml Intake Oral 1600 ml 1836 ml 1222 ml 6658 ml IV Total 15175 ml Autotransfusion 250 ml Packed Cells 1085 ml Output Urine Total 3100 ml 3450 ml 1800 ml 54936 ml Drainage Total 50 ml 230 ml 60 ml 1145 ml Estimated Blood Loss 1000 ml # Bowel Movements 0 2 Exam Gen.- A+ O 3 no apparent distress. Obese male lying in bed Head-atraumatic/normocephalic Eyes- open conjunctiva clear, pupils equal, nonicteric ENT- ears no deformity, nose no deformity Neck- supple/trach midline CVS-normal rate Lungs-normal rate/effort GI-generous abdomen, soft hong/wounds C/D/I examined with Dr. Curry [facility]- moving 4 no obvious deformity Neuro- cranial nerves II through XII intact to gross examination, nonfocal Skin- warm and dry, no rashes/lesions/wounds noted Psych- pleasant and appropriate, Lab and Diagnostics Result Diagram: 09/05/16 0500 09/05/16 0530 Cardiac Echo Impressions Echocardiogram Report: Niles Rubio on 09/03/2016 06:10 Interpretation Summary No findings that would suggest endocarditis. Procedure: Informed consent for Transesophageal Echocardiogram, and use of a contrast agent as needed, was obtained prior to the procedure. The patient was brought to the [facility] in a fasting state. An intravenous line was placed. A topical anesthetic agent was used for oropharangeal anesthesia. A bite block was inserted. Sedation was managed by anesthesiologist; see anesthesiology notes for details. A 2D transesophageal echocardiogram with spectral and color flow Doppler was performed. A multifrequency, multiplane transesopheageal echocardiographic endoscope was inserted and manipulated in the standard fashion to achieve multiplane views. The usual views were obtained; basal, mid-esophageal, transgastric and aortic views. The patient's vital signs, including blood pressure, heart rate, pulse oximetry and cardiac rhythm were monitored throughout the procedure and remained stable. The patient tolerated the procedure well without evidence of orophangeal or esophageal trauma. There is no prior echocardiogram noted for this patient. The patient was in normal sinus rhythm during the exam. There were no complications. Left Ventricle: The left ventricle is normal in size, wall thickness, and systolic function without any focal wall motion abnormalities. The ejection fraction is estimated to be 55-60%. Right Ventricle: The right ventricle is normal in size and function. Atria: No thrombus is detected in the left atrial appendage. No left atrial mass or thrombus visualized. Mitral Valve: The mitral valve is normal in structure and function. There is no vegetation seen on the mitral valve. Aortic Valve: The aortic valve is trileaflet. The aortic valve is mildly calcified. There is no aortic valvular vegetation. Tricuspid Valve: The tricuspid valve is normal in structure and function. There is no tricuspid valve vegetation. Pulmonic Valve: The pulmonic valve is normal in structure and function. There is no vegetation on the pulmonic valve. Great Vessels: The aortic root is normal size. Pericardium/ Pleura: There is no pericardial effusion. Reading Physician:PM Assessment & Plan 51-year-old male admitted 08/31, s/p radical cystectomy and prostatectomy and ileal loop 09/01 for bladder cancer 09/02 patient's having poor pain control we need to increase [employer], blood sugars less than 125 on current regimen, hemoglobin steady/elevated we will need to continue to monitor this. 09/03 aggressive regimen of weaning [employer] and epidural plan otherwise medically stable. MANE was performed. 09/04 wean seem too aggressive for patient. MANE was negative, discontinue Ancef per infectious disease. 09/05 patient has a generous regimen of methadone 30 mg in the morning and 10 mg twice in the afternoon, Dilaudid 8 mg by mouth as well as 2 mg IV every one I will bring it to the nurse's attention he should have ample medication we should be able to mobilize him and control his pain. No morning labs are being ordered for 09/06 patient stable. #Acute/chronic pain-patient has generous regimen should be sufficient no changes 09/05 - Methadone was resumed 09/01 -Thank you palliative care with management of pain meds #Bladder cancer- s/p radical cystectomy and prostatectomy and ileal loop 08/31 for bladder cancer -Management per Dr. Phillip TAVERAS #Lower extr weakness 09/01- resolved with decreased rate of epidural 09/02. Physical therapy to see and mobilize 09/04 #Acute blood loss anemia, Hgb 6.6 08/31, 8.9 09/02, 10.3 09/05 - stable, s/p 2 u of RBC 08/31 #Recent port infection with MSSA earlier this month (port removed)-not up to MANE today - as per Dr Cameron continue Ancef 2 gm IV until Sep 03... Ancef discontinued -MANE completed 09/03 negative #Type II diabetes mellitus- Accuchecks, ISS, BS right around the 100 changes. #Hypothyroidism- Resume usual medication when able #Anxiety (unclear if he also has a history of depression) - Resume sertraline when able - IV lorazepam prn #Prophylaxis -DVT proph - SCD VTE Prophylaxis: SCDs VTE Mechanical Devices: Intermittant Pneumatic CD Resuscitation Status: CPR: Attempt Resuscitation Jorge Yu MD Sep 05, 2016 15:16
[2016-09-05 16:42] VITALS: BP 131/76; PULSE 90; RESP 17; O2SAT 95
[2016-09-05 20:18] VITALS: BP 136/81; PULSE 91; RESP 18; O2SAT 94
[2016-09-06] MEDS: Sodium Chloride LOK Flush 10 mL Syringe IVFLUSH SCH ×4 (00:29→23:54)
[2016-09-06] MEDS: HYDROmorphone 1 mg/mL Inj IVPUSH PRN ×10 (00:30→20:20)
[2016-09-06] MEDS: Heparin 5,000 Unit/mL Inj SUBQ SCH ×4 (00:30→23:54)
[2016-09-06 05:41] VITALS: BP 131/77; PULSE 89; RESP 18; O2SAT 95
--- NOTE | 2016-09-06 07:48 | PCM.PALLBR ---
Palliative Brief Note Date of Service Sep 06, 2016 . Yesterday, because of continuing patient complaints of pain, reviewed medication regimen in detail with other palliative provider (as well as with patient's nurse and pharmacist). Adjusted timing of scheduled methadone to 0630, 1430 and 2230, and increased last daily dose of methadone (at 2230) to 25 mg, while continuing other doses at 15 mg (based on calculations of total MEDD over preceeding 48 hrs). Continuing prn oral and IV Dilaudid as before for breakthrough pain (though hopefully will be able to wean off IV Dilaudid in the next 1-2 days as the increased methadone takes hold). Palliative will continue to follow and adjust meds as needed. Thomas Naqvi MD Sep 06, 2016 07:48
[2016-09-06] MEDS: Insulin LISPRO 300 Unit/3 mL Inj SUBQ SCH ×4 (08:00→22:00)
[2016-09-06] MEDS: LORazepam 0.5 mg Tablet PO PRN ×2 (08:39→14:49)
[2016-09-06] MEDS: Lactated Ringer's 1,000 ML IV SCH ×2 (10:03→20:03)
--- NOTE | 2016-09-06 10:03 | PROG NOTE ---
[address] [address] PROGRESS NOTE PATIENT: DIANA CROWELL : 1965 MR#: [id number] ADMIT: 08/31/2016 JOB ID: [id number] DATE: 09/06/2016 Postop day six, cystoprostatectomy and ileal conduit diversion. SUBJECTIVE: Pain control remains a significant issue. His narcotic analgesics have been adjusted by palliative care and hopefully this will be successful. The patient is beginning to eat, but is still resistant to ambulation because of pain. LABORATORY DATA: Hematocrit stable. PHYSICAL EXAMINATION: Aabdomen is obese, soft, and nontender. The wound is healing nicely. No evidence of infection. His peripheral edema is slowly improving. ASSESSMENT AND PLAN: For discharge planning, I do not expect him to be able to be discharged until he is able to ambulate independently, is eating a fairly regular diet, and is manageable with oral analgesics only.
--- NOTE | 2016-09-06 14:03 | PCM.PNMED ---
Subjective Date of Service Sep 06, 2016 Subjective Still having uncontrolled abdominal pain. No chest pain, no dyspnea, no nausea or vomiting. Desired outcome of IV Dilaudid did not occur 09/05 we are making a change today. Hopefully he gets under control and get some sleep and is better 09/07. Exam Vital Signs Vital Sign - Last Date Time Temp Pulse Resp B/P Pulse Ox O2 Delivery O2 Flow Rate FiO2 09/06/16 05:41 36.4 89 18 131/77 95 Room Air 09/03/16 21:20 2.00 Intake and Output 09/05/16 09/05/16 09/06/16 Cumulative From/Thru 15:00 23:00 07:00 08/27/16 16:32 - 09/06/16 06:32 Intake Total 2072 ml 840 ml 55983 ml Output Total 1650 ml 1200 ml 64762 ml Balance 422 ml -360 ml 3788 ml Intake Oral 2072 ml 840 ml 9570 ml IV Total 54630 ml Autotransfusion 250 ml Packed Cells 1085 ml Output Urine Total 1650 ml 1200 ml 87855 ml Drainage Total 1145 ml Estimated Blood Loss 1000 ml # Bowel Movements 1 0 3 Exam Gen.- A+ O 3 no apparent distress. Obese male lying in bed Head-atraumatic/normocephalic Eyes- open conjunctiva clear, pupils equal, nonicteric ENT- ears no deformity, nose no deformity Neck- supple/trach midline CVS-normal rate Lungs-normal rate/effort GI-generous abdomen, soft Musc- moving 4 no obvious deformity Neuro- cranial nerves II through XII intact to gross examination, nonfocal Skin- warm and dry, no rashes/lesions/wounds noted Psych- pleasant and appropriate, Lab and Diagnostics Result Diagram: 09/05/16 0500 09/05/16 0530 Cardiac Echo Impressions Echocardiogram Report: Niles Rubio on 09/03/2016 06:10 Interpretation Summary No findings that would suggest endocarditis. Procedure: Informed consent for Transesophageal Echocardiogram, and use of a contrast agent as needed, was obtained prior to the procedure. The patient was brought to the [facility] in a fasting state. An intravenous line was placed. A topical anesthetic agent was used for oropharangeal anesthesia. A bite block was inserted. Sedation was managed by anesthesiologist; see anesthesiology notes for details. A 2D transesophageal echocardiogram with spectral and color flow Doppler was performed. A multifrequency, multiplane transesopheageal echocardiographic endoscope was inserted and manipulated in the standard fashion to achieve multiplane views. The usual views were obtained; basal, mid-esophageal, transgastric and aortic views. The patient's vital signs, including blood pressure, heart rate, pulse oximetry and cardiac rhythm were monitored throughout the procedure and remained stable. The patient tolerated the procedure well without evidence of orophangeal or esophageal trauma. There is no prior echocardiogram noted for this patient. The patient was in normal sinus rhythm during the exam. There were no complications. Left Ventricle: The left ventricle is normal in size, wall thickness, and systolic function without any focal wall motion abnormalities. The ejection fraction is estimated to be 55-60%. Right Ventricle: The right ventricle is normal in size and function. Atria: No thrombus is detected in the left atrial appendage. No left atrial mass or thrombus visualized. Mitral Valve: The mitral valve is normal in structure and function. There is no vegetation seen on the mitral valve. Aortic Valve: The aortic valve is trileaflet. The aortic valve is mildly calcified. There is no aortic valvular vegetation. Tricuspid Valve: The tricuspid valve is normal in structure and function. There is no tricuspid valve vegetation. Pulmonic Valve: The pulmonic valve is normal in structure and function. There is no vegetation on the pulmonic valve. Great Vessels: The aortic root is normal size. Pericardium/ Pleura: There is no pericardial effusion. 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 09/03 aggressive regimen of weaning CUTTING MACHINE FIXER and epidural plan otherwise medically stable. MANE was performed. 09/04 wean seem too aggressive for patient. MANE was negative, discontinue Ancef per infectious disease. 09/05 patient has a generous regimen of methadone 30 mg in the morning and 10 mg twice in the afternoon, Dilaudid 8 mg by mouth as well as 2 mg IV every one I will bring it to the nurse's attention he should have ample medication we should be able to mobilize him and control his pain. No morning labs are being ordered for 09/06 patient stable. 09/06 medically stable pain still not controlled encouraging nursing to utilize the IV Dilaudid that he had not been getting until today and hopefully gets it today. #Acute/chronic pain-patient has generous regimen should be sufficient no changes 09/05 - Methadone was resumed 09/01 -Thank you palliative care with management of pain meds #Bladder cancer- s/p radical cystectomy and prostatectomy and ileal loop 08/31 for bladder cancer -Management per Dr. Phillip TAVERAS #Lower extr weakness 09/01- resolved with decreased rate of epidural 09/02. Physical therapy to see and mobilize 09/04 #Acute blood loss anemia, Hgb 6.6 08/31, 8.9 09/02, 10.3 09/05 - stable, s/p 2 u of RBC 08/31 #Recent port infection with MSSA earlier this month (port removed)-not up to MANE today - as per Dr Cameron continue Ancef 2 gm IV until Sep 03... Ancef discontinued -MANE completed 09/03 negative #Type II diabetes mellitus- Accuchecks, ISS, BS right around the 100 changes. #Hypothyroidism- Resume usual medication when able #Anxiety (unclear if he also has a history of depression) - Resume sertraline when able - IV lorazepam prn #Prophylaxis -DVT proph - SCD VTE Prophylaxis: SCDs VTE Mechanical Devices: Intermittant Pneumatic CD Resuscitation Status: CPR: Attempt Resuscitation Jorge Yu MD Sep 06, 2016 14:03
[2016-09-06] MEDS: 0.9% Sodium Chloride 250 ML IV SCH (14:35)
[2016-09-06 14:54] VITALS: BP 133/80; PULSE 82; RESP 18; O2SAT 96
[2016-09-06] MEDS ORDERED: LORazepam 0.5 mg Tablet PO PRN (16:00)
[2016-09-06] MEDS: Ondansetron 2 mg/mL 2 mL Inj IVPUSH PRN (18:02)
[2016-09-06 19:20] VITALS: BP 113/70; PULSE 92; RESP 18; O2SAT 95
[2016-09-06 22:00] VITALS: O2SAT 87
[2016-09-06 22:05] VITALS: O2SAT 97
[2016-09-07] MEDS: HYDROmorphone 1 mg/mL Inj IVPUSH PRN ×7 (04:12→22:05)
[2016-09-07] MEDS: Lactated Ringer's 1,000 ML IV SCH (04:53)
[2016-09-07 05:33] VITALS: BP 104/51; PULSE 90; RESP 16; O2SAT 97
[2016-09-07] MEDS: Insulin LISPRO 300 Unit/3 mL Inj SUBQ SCH ×4 (07:26→22:00)
[2016-09-07] MEDS: Sodium Chloride LOK Flush 10 mL Syringe IVFLUSH SCH ×3 (08:08→23:50)
[2016-09-07] MEDS: Heparin 5,000 Unit/mL Inj SUBQ SCH ×3 (10:16→23:52)
--- NOTE | 2016-09-07 10:35 | PCM.PALLBR ---
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 For now continue current regimen including: Methadone 15 mg oral at 0630 and 1430 and methadone 30 mg oral at 2230. He has received 2 doses of this increased nighttime methadone- continue to monitor at this dose for at least another 48 hours before making additional dose adjustments. Also continue his hydromorphone, 8 mg PO Q 3 hours prn for breakthrough pain, as well as hydromorphone 2 mg IV Q 1 hr hour prn breakthrough pain not controlled with oral agents. Anxiety- continue lorazepam 1 mg TID prn. Sertraline 100 mg Q day restarted on Insomnia-tied to his anxiety- resumed alprazolam 1 mg at HS prn Nausea--an issue with last hospitalization- now not. Monitor as he resumes oral medications. Reviewed with Dr. Shaver and will increase him to a general diet and will contact his and ask her to bring in foods that he may enjoy more than his hospital diet. Incentive spirometry ordered; physical therapy to continue today. Patient requested that he have a "day off" from PT today and I gently argued against this, urging him to try to work with physical therapists even if he seems unable to ambulate. Talked with him about progressive deconditioning and the need to push through his discomfort to some degree to build his strength back up. MSSA bacteremia- last hospitalization. MANE negative for endocarditis and antibiotics discontinued by infectious disease Goal will be to get him off of his benzodiazepams over the next few months and begin extended taper of his pain meds. Dr Salvador has been willing to manage these which helps the pt with driving distance. -DPOA/Advanced Directives/POLST--full code, Sherly- is defined as DPOAHC- spoke with her today and reviewed plans -Family/emotional support-Sherly -Spiritual support-he is not particularly interested Additional Medical Diagnoses with primary management by Hospitalist team include : #Acute/chronic pain #Bladder cancer #Lower extr weakness 09/01- resolved #Acute blood loss anemia, Hgb 6.6 08/31, 8.9 09/02 #Recent port infection with MSSA earlier this month (port removed) #Type II diabetes mellitus #Hypothyroidism #Anxiety (unclear if he also has a history of depression) Problems: End of Life Preferences FULL CODE Disposition expects to go home Resuscitation Status Resuscitation Status: CPR: Attempt Resuscitation POLST Updates/Changes POLST Discussed with: Patient POLST Review Outcome: No Change . Pain: Moderate Symptom management: Depression, Pain Total time 40 minutes; >50% face to face with patient and family, providing counselling regarding plans and recommendations, and in care coordination with his medical teams. Palliative Brief Note Date of Service Sep 07, 2016 . Returned to reevaluate patient. Prior to visiting, reviewed his updated records in the EMR and spoke with his bedside nurse. Later spoke with his hospitalist Dr. Shaver as well. When we arrived, he is resting quietly in bed. Continues to look pale, fatigued and somewhat depressed. He does admit that he feels better today than he was late last week. He was able to get up and shower yesterday though afterwards he was very fatigued and sore. Pain at times was as low as 2-3/10. Does appear to be tolerating the increased dose of methadone so far with no obvious increase in drowsiness. On exam, vital signs noted. Heavy set man, pale, lying in bed. Lungs clear anterolaterally, heart sounds regular, abdomen rounded, soft, without significant tenderness or peritoneal signs. Diffuse puffiness persists as well as pitting edema at the ankles but a bit diminished compared with Wednesday. No new laboratories or imaging studies since the . Thomas Naqvi MD Sep 07, 2016 10:35 Thomas Naqvi MD Sep 07, 2016 10:35
--- NOTE | 2016-09-07 11:14 | PCM.PNSURG ---
Subjective Date of Service: Sep 07, 2016 Date of Service: Sep 07, 2016 Visit Information: Reason for Visit Bladder Cancer Surgery/Surgery Date Post-Op Day # 7 Date of Admission: Aug 31, 2016 at 16:45 Hospital Day # 8 Subjective: Mr Knutson has taken steps in his room, which is about his baseline before surgery (he was unsteady on his feet). He continues to pass flatus and have BM. His pain, when moving and at its worse is 8/10. He is tolerating PO nutrition. Pain Management: PO, IV Push Objective Vital Sign- Last 8 Hours Date Time Temp Pulse Resp B/P Pulse Ox O2 Delivery O2 Flow Rate FiO2 09/07/16 05:33 36.7 90 16 104/51 97 Nasal Cannula 2.50 Intake and Output- Last 8 Hour 09/07/16 Cumulative From/Thru 07:00 08/27/16 16:32 - 09/07/16 05:33 Intake Total 750 ml 71436 ml Output Total 300 ml 32948 ml Balance 450 ml 3662 ml Intake Oral 750 ml 80688 ml IV Total 71831 ml Autotransfusion 250 ml Packed Cells 1085 ml Output Urine Total 300 ml 15765 ml Drainage Total 1145 ml Estimated Blood Loss 1000 ml # Bowel Movements 0 4 General: Alert, Cooperative Abdomen: Soft, Appropriately tender (along incision, which is c/d/i with hong), Other (ostomy: pink and viable appearing.) Extremities: Warm, Edema Generalized Neuro: Cranial Nerves 2-12 nl Catheters: None Result Diagram: 09/05/16 0500 09/05/16 0530 Assessment & Plan Impression POD# 7 Radical cystectomy Problems: Plan We discussed ambulation - He continues to improve, and he is working with PT We discussed PT - I anticipate discharge by this Wednesday09/09/16, and I encouraged him to mentally prepare himself for discharge tomorrow VTE Prophylaxis: SCDs Resuscitation Status: CPR: Attempt Resuscitation Haven Fisher MD Sep 07, 2016 11:14
[2016-09-07] MEDS: Ondansetron 2 mg/mL 2 mL Inj IVPUSH PRN ×2 (12:08→15:51)
[2016-09-07 13:09] VITALS: BP 143/84; PULSE 93; RESP 18; O2SAT 96
--- NOTE | 2016-09-07 14:09 | PCM.PNMED ---
Subjective Date of Service Sep 07, 2016 Subjective pt was still in pain, required dilaudid iv no n/v tolerated liquid, wanted to advance his diet. Exam Vital Signs Vital Sign - Last Date Time Temp Pulse Resp B/P Pulse Ox O2 Delivery O2 Flow Rate FiO2 09/07/16 05:33 36.7 90 16 104/51 97 Nasal Cannula 2.50 Intake and Output 09/06/16 09/06/16 09/07/16 Cumulative From/Thru 15:00 23:00 07:00 08/27/16 16:32 - 09/07/16 05:33 Intake Total 1074 ml 750 ml 12485 ml Output Total 1650 ml 300 ml 09965 ml Balance -576 ml 450 ml 3662 ml Intake Oral 1074 ml 750 ml 11791 ml IV Total 26711 ml Autotransfusion 250 ml Packed Cells 1085 ml Output Urine Total 1650 ml 300 ml 47292 ml Drainage Total 1145 ml Estimated Blood Loss 1000 ml # Bowel Movements 1 0 4 Exam NAD, comfortably laying down on the bed no JVD, MMM, no LAD RRR, nl s1, s2 no mrg CTAB, no w,c S,ND,diffuse td, normoactiveBS+ warm, no edema, pulses 2/2 IVs and Medications Medications Reviewed: Medications were reviewed in detail Lab and Diagnostics Result Diagram: 09/05/16 0500 09/05/16 0530 Cardiac Echo Impressions Echocardiogram Report: Niles Rubio on 09/03/2016 06:10 Interpretation Summary No findings that would suggest endocarditis. Procedure: Informed consent for Transesophageal Echocardiogram, and use of a contrast agent as needed, was obtained prior to the procedure. The patient was brought to the [facility] in a fasting state. An intravenous line was placed. A topical anesthetic agent was used for oropharangeal anesthesia. A bite block was inserted. Sedation was managed by anesthesiologist; see anesthesiology notes for details. A 2D transesophageal echocardiogram with spectral and color flow Doppler was performed. A multifrequency, multiplane transesopheageal echocardiographic endoscope was inserted and manipulated in the standard fashion to achieve multiplane views. The usual views were obtained; basal, mid-esophageal, transgastric and aortic views. The patient's vital signs, including blood pressure, heart rate, pulse oximetry and cardiac rhythm were monitored throughout the procedure and remained stable. The patient tolerated the procedure well without evidence of orophangeal or esophageal trauma. There is no prior echocardiogram noted for this patient. The patient was in normal sinus rhythm during the exam. There were no complications. Left Ventricle: The left ventricle is normal in size, wall thickness, and systolic function without any focal wall motion abnormalities. The ejection fraction is estimated to be 55-60%. Right Ventricle: The right ventricle is normal in size and function. Atria: No thrombus is detected in the left atrial appendage. No left atrial mass or thrombus visualized. Mitral Valve: The mitral valve is normal in structure and function. There is no vegetation seen on the mitral valve. Aortic Valve: The aortic valve is trileaflet. The aortic valve is mildly calcified. There is no aortic valvular vegetation. Tricuspid Valve: The tricuspid valve is normal in structure and function. There is no tricuspid valve vegetation. Pulmonic Valve: The pulmonic valve is normal in structure and function. There is no vegetation on the pulmonic valve. Great Vessels: The aortic root is normal size. Pericardium/ Pleura: There is no pericardial effusion. 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 09/03 aggressive regimen of weaning PEDIATRIC SOCIAL WORKER and epidural plan otherwise medically stable. MANE was performed. 09/04 wean seem too aggressive for patient. MANE was negative, discontinue Ancef per infectious disease. 09/05 patient has a generous regimen of methadone 30 mg in the morning and 10 mg twice in the afternoon, Dilaudid 8 mg by mouth as well as 2 mg IV every one I will bring it to the nurse's attention he should have ample medication we should be able to mobilize him and control his pain. No morning labs are being ordered for 09/06 patient stable. 09/06 medically stable pain still not controlled encouraging nursing to utilize the IV Dilaudid that he had not been getting until today and hopefully gets it today. #Acute/chronic pain, POA, difficulty to control post po course -pt still requiring iv dilaudid, with increased methadone, Methadone was resumed 09/01 -appreciate palliative care for pain control on dispo #Bladder cancer- s/p radical cystectomy and prostatectomy and ileal loop 08/31 for bladder cancer -Management per Dr. Phillip TAVERAS, anticipate d/c on Wed -daily PT for increase mobility #Lower extr weakness 09/01- resolved with decreased rate of epidural 09/02. Physical therapy to see and mobilize 09/04 #Acute blood loss anemia, Hgb 6.6 08/31, 8.9 09/02, 10.3 09/05 - stable, s/p 2 u of RBC 08/31 #Recent port infection with MSSA earlier this month (port removed)-not up to MANE today - as per Dr Cameron continue Ancef 2 gm IV until Sep 03... Ancef discontinued -MANE completed 09/03 negative #Type II diabetes mellitus- Accuchecks, ISS, BS right around the 100 changes. #Hypothyroidism- Resume usual medication when able #Anxiety (unclear if he also has a history of depression) - Resume sertraline when able - IV lorazepam prn #Prophylaxis -DVT proph - SCD dispo: likely 2-3more days given difficulty of pain management, SNF vs home with VTE Prophylaxis: SCDs VTE Mechanical Devices: Intermittant Pneumatic CD Resuscitation Status: CPR: Attempt Resuscitation Time spent 35min Che Shaver MD Sep 07, 2016 08:12
[2016-09-07] MEDS: 0.9% Sodium Chloride 250 ML IV SCH (14:35)
[2016-09-07 19:20] VITALS: BP 101/56; PULSE 93; RESP 20; O2SAT 94
[2016-09-07] MEDS: MetoCLOpramide 5 mg/mL 2 mL Inj IVPUSH PRN (19:41)
[2016-09-07] MEDS: LORazepam 0.5 mg Tablet PO PRN (22:04)
[2016-09-07] MEDS ORDERED: Ondansetron 2 mg/mL 2 mL Inj IVPUSH PRN (22:05)
[2016-09-08] MEDS: HYDROmorphone 1 mg/mL Inj IVPUSH PRN ×2 (02:45→23:02)
[2016-09-08 04:40] VITALS: BP 112/64; PULSE 86; RESP 16; O2SAT 99
[2016-09-08] MEDS: Insulin LISPRO 300 Unit/3 mL Inj SUBQ SCH ×4 (08:00→23:03)
[2016-09-08] MEDS: Sodium Chloride LOK Flush 10 mL Syringe IVFLUSH SCH ×2 (08:30→16:47)
[2016-09-08] MEDS: Heparin 5,000 Unit/mL Inj SUBQ SCH ×2 (09:07→16:47)
[2016-09-08] MEDS: LORazepam 0.5 mg Tablet PO PRN ×2 (09:12→18:12)
--- NOTE | 2016-09-08 11:31 | PCM.PNMED ---
Subjective Date of Service Sep 08, 2016 Subjective pt kept having nausea, KUB yesterday was unremarkable, still requiring Dilaudid 8mg q3h PO Exam Vital Signs Vital Sign - Last Date Time Temp Pulse Resp B/P Pulse Ox O2 Delivery O2 Flow Rate FiO2 09/08/16 04:40 36.6 86 16 112/64 99 Room Air 09/07/16 05:33 2.50 Intake and Output 09/07/16 09/07/16 09/08/16 Cumulative From/Thru 15:00 23:00 07:00 08/27/16 16:32 - 09/08/16 04:40 Intake Total 1828 ml 675 ml 08373 ml Output Total 600 ml 550 ml 05821 ml Balance 1228 ml 125 ml 5015 ml Intake Oral 1828 ml 675 ml 20728 ml IV Total 53073 ml Autotransfusion 250 ml Packed Cells 1085 ml Output Urine Total 600 ml 550 ml 44126 ml Drainage Total 1145 ml Estimated Blood Loss 1000 ml # Bowel Movements 4 Exam NAD, comfortably laying down on the bed no JVD, MMM, no LAD RRR, nl s1, s2 no mrg CTAB, no w,c S,ND,diffuse td, normoactiveBS+ warm, no edema, pulses 2/2 IVs and Medications Medications Reviewed: Medications were reviewed in detail Lab and Diagnostics Result Diagram: 09/05/16 0500 09/05/16 0530 Cardiac Echo Impressions Echocardiogram Report: Niles Rubio on 09/03/2016 06:10 Interpretation Summary No findings that would suggest endocarditis. Procedure: Informed consent for Transesophageal Echocardiogram, and use of a contrast agent as needed, was obtained prior to the procedure. The patient was brought to the [facility] in a fasting state. An intravenous line was placed. A topical anesthetic agent was used for oropharangeal anesthesia. A bite block was inserted. Sedation was managed by anesthesiologist; see anesthesiology notes for details. A 2D transesophageal echocardiogram with spectral and color flow Doppler was performed. A multifrequency, multiplane transesopheageal echocardiographic endoscope was inserted and manipulated in the standard fashion to achieve multiplane views. The usual views were obtained; basal, mid-esophageal, transgastric and aortic views. The patient's vital signs, including blood pressure, heart rate, pulse oximetry and cardiac rhythm were monitored throughout the procedure and remained stable. The patient tolerated the procedure well without evidence of orophangeal or esophageal trauma. There is no prior echocardiogram noted for this patient. The patient was in normal sinus rhythm during the exam. There were no complications. Left Ventricle: The left ventricle is normal in size, wall thickness, and systolic function without any focal wall motion abnormalities. The ejection fraction is estimated to be 55-60%. Right Ventricle: The right ventricle is normal in size and function. Atria: No thrombus is detected in the left atrial appendage. No left atrial mass or thrombus visualized. Mitral Valve: The mitral valve is normal in structure and function. There is no vegetation seen on the mitral valve. Aortic Valve: The aortic valve is trileaflet. The aortic valve is mildly calcified. There is no aortic valvular vegetation. Tricuspid Valve: The tricuspid valve is normal in structure and function. There is no tricuspid valve vegetation. Pulmonic Valve: The pulmonic valve is normal in structure and function. There is no vegetation on the pulmonic valve. Great Vessels: The aortic root is normal size. Pericardium/ Pleura: There is no pericardial effusion. Reading Physician:PM Assessment & Plan 51-year-old male admitted 08/31, s/p radical cystectomy and prostatectomy and ileal loop 09/01 for bladder cancer acute, active #Acute/chronic pain, POA, difficulty to control in post op course -pt still requiring iv dilaudid,q3h PO dilaudid 8mg, increased methadone, Methadone was resumed 09/01 -appreciate palliative care for pain control on dispo #Bladder cancer- s/p radical cystectomy and prostatectomy and ileal loop 08/31 for bladder cancer -Management per Dr. Phillip TAVERAS, anticipate d/c on Wed -daily PT for increase mobility #intractable nausea, no vomiting likely developed in post-op course, probable opioid induced, CT abd earlier and KUB 09/07 didn't show SBO. -zofran prn for n/v -will observe timing of sx closely with pain regimen, chronic, stable,resolved #Lower extr weakness 09/01- resolved with decreased rate of epidural 09/02. Physical therapy to see and mobilize 09/04 #Acute blood loss anemia, Hgb 6.6 08/31, 8.9 09/02, 10.3 09/05 - stable, s/p 2 u of RBC 08/31 #Recent port infection with MSSA earlier this month (port removed)-not up to MANE today - as per Dr Cameron continue Ancef 2 gm IV until Sep 03... Ancef discontinued -MANE completed 09/03 negative #Type II diabetes mellitus- Accuchecks, ISS,BS in target #Hypothyroidism- Resume usual medication when able #Anxiety (unclear if he also has a history of depression) - Resume sertraline when able - IV lorazepam prn #Prophylaxis -DVT proph - SCD dispo: likely 1-2more days given difficulty of pain management, SNF vs home with VTE Prophylaxis: SCDs VTE Mechanical Devices: Intermittant Pneumatic CD Resuscitation Status: CPR: Attempt Resuscitation Time spent 35min Che Shaver MD Sep 08, 2016 11:31
[2016-09-08 12:31] LABS: Mean Corpuscular Hemoglobin 29.4 pg (27.0-35.0); Mean Corpuscular Volume 89.8 fL (81-100)
--- NOTE | 2016-09-08 13:05 | PCM.PALLBR ---
Palliative Care Recommendation Summary of palliative recommendations: -Symptom management (Pain/other) Pain- epidural and [employer]ER discontinued on 09/03. For now continue current regimen including: Methadone 15 mg oral at 0630 and 1430 and methadone 30 mg oral at 2230. He has now received 3 doses of this increased nighttime methadone- in light of his increased confusion, will decrease last dose of methadone daily from 30 mg to 25 mg - continue to monitor and adjust as needed. Also continue his hydromorphone, 8 mg PO Q 3 hours prn for breakthrough pain, as well as hydromorphone 2 mg IV Q 1 hr hour prn breakthrough pain not controlled with oral agents. Again, urged him to use the oral medication over the IV as much as possible. Anxiety- continue lorazepam 1 mg TID prn. Sertraline 100 mg Q day restarted on Insomnia-tied to his anxiety- resumed alprazolam 1 mg at HS prn Nausea--a major issue with last hospitalization- now intermittent. Spread out administration of pills as patient complains having to take too many pills all at the same time contributes to his nausea. Fatigue- discovered this PM that he has not been receiving his levothyroxine since admission; restarted tonight and will recheck TSH in AM with plans to f/u as outpatient appropriately Incentive spirometry ordered; physical therapy to continue today. Talked with him about progressive deconditioning and the need to push through his discomfort to some degree to build his strength back up. MSSA bacteremia- last hospitalization. MANE negative for endocarditis and antibiotics discontinued by infectious disease Goal will be to get him off of his benzodiazepams over the next few months and begin extended taper of his pain meds. Plan on close follow-up/management with outpatient palliative care/Dr. Romero. Dr Salvador has been willing to manage these which helps the pt with driving distance. -DPOA/Advanced Directives/POLST--full code, Sherly- is defined as DPOAHC -Family/emotional support-Sherly -Spiritual support-he is not particularly interested Additional Medical Diagnoses with primary management by Hospitalist team include : #Acute/chronic pain #Bladder cancer #Lower extr weakness 09/01- resolved #Anemia, multifactorial #Recent port infection with MSSA earlier this month (port removed) #Type II diabetes mellitus #Hypothyroidism #Anxiety (unclear if he also has a history of depression) Problems: End of Life Preferences FULL CODE Disposition expects to go home Resuscitation Status Resuscitation Status: CPR: Attempt Resuscitation POLST Updates/Changes POLST Discussed with: Patient POLST Review Outcome: No Change . Pain: Moderate Symptom management: Nausea, Depression, Pain Total time 50 minutes; >50% face to face with patient , providing counselling regarding plans and recommendations, and in care coordination with his medical teams. Palliative Brief Note Date of Service Sep 08, 2016 . Returned to reevaluate patient. Prior to visiting, reviewed and updated records in the EMR in detail and spoke with his nurse. Had spoken yesterday afternoon with Dr. Fisher, who is anticipating discharge tomorrow. When I arrived, patient is sitting at bedside. He continues to look pale, weak , somewhat depressed. He did complain of feeling slightly more sedated/ confused but does feel that his pain control is overall improved. Diaphoretic as well. He noted that he had been up in the shower again today and was trying to cooperate with caregivers and increase his mobilization. Continues to have pain and we talked at length about the continuing need to taper off of IV medications in favor of his oral medications for breakthrough. He understands this and said that he would continue to try today. He did note that he becomes nauseated if he has to take too many pills at one time, and after seeing him I did communicate by phone with his nurse and again suggested that as much as possible nursing staff spread out administration of pill medications to help prevent such problems. A close family friend was at bedside- she is a retired RN and was very helpful and supportive, while being very firm with the patient about needing to mobilize while avoiding his IV narcotics. On exam today, heavyset pale man sitting at bedside. Skin is warm and damp. Head and neck exam without acute changes. Lungs clear, heart sounds regular. Extremities with peeling and scaling skin over the feet, significant dependent rubor left greater than right. CBC and BMP were ordered this a.m. in response to his pallor, weakness, diaphoresis reviewed Returned in the afternoon. He was sitting in bed eating lunch. Continues to be mildly confused, recounting medication administration in a way that is not supported by the [employer] documentation, fiddling with his trash bake at bedside , unsuccessfully trying for extended time to hang it from table while we were talking. Thinks that his pain control is stable now but did require oral breakthrough hydromorphone. I am going to decrease his last evening dose of methadone from 30 to 25 mg. We will continue his other medications as currently ordered and reassess in a.m. Addendum: called by family friend (retired RN) who advised me patient has not been receiving his levothyroxine since admission. I checked records and confirmed this. Will restart with 50 mcg now and then QAM (his dose at home had been 50 mcg QD) recheck TSH in AM and then make certain this is followed up in several weeks in office for monitoring/adjustment Thomas Naqvi MD Sep 08, 2016 13:05
[2016-09-08] MEDS: 0.9% Sodium Chloride 250 ML IV SCH (14:35)
--- NOTE | 2016-09-08 15:14 | DRSVH ---
PROCEDURE: X-RAY KUB ([id number]) INDICATIONS: recurrent nausea post op TECHNIQUE: One view of the abdomen acquired. COMPARISON: [facility], CR, XR KUB, 08/31/2016, 14:54. FINDINGS: Surgical changes and devices: Bilateral ureteral stents and right lower quadrant ileal conduit noted. Multiple surgical clips and hong project over the pelvis related to recent cystectomy. Bowel: Moderate amount of stool throughout the colon, otherwise the bowel gas pattern is normal. Soft tissues: No suspicious abdominal calcifications. Visualized solid organ contours appear normal in size. Bones: No suspicious bony lesions. IMPRESSION: 1. Moderate fecal loading. Dictated by: Victorino BREAUXA Interpreted: Lois Watt MD on 09/08/2016 at 10:53 Approved by: Lois Watt M.D. on 09/08/2016 at 15:13
[2016-09-08] MEDS ORDERED: Polyethylene Glycol (PEG) 17 Gm Powder PO ONE (16:00)
[2016-09-08 16:22] VITALS: BP 100/63; PULSE 88; RESP 18; O2SAT 97
--- NOTE | 2016-09-08 17:05 | PCM.PNSURG ---
Subjective Date of Service: Sep 08, 2016 Date of Service: Sep 08, 2016 Visit Information: Reason for Visit Bladder Cancer Surgery/Surgery Date Post-Op Day # 8 Date of Admission: Aug 31, 2016 at 16:45 Hospital Day #9 Subjective: Pt supine during exam, he reports pain is a 9/10 and is receiving pain medications while in the room. He has walked today, a few steps in his room. he reports a BM every day and continues to have flatus. He denies any nausea or vomiting at this time. Postop General: No Shortness of Breath Gastrointestinal: Tolerating Oral Feedings Pain Management: PO, IV Push Objective Vital Sign- Last 8 Hours Date Time Temp Pulse Resp B/P Pulse Ox O2 Delivery O2 Flow Rate FiO2 09/08/16 16:22 36.7 88 18 100/63 97 Room Air Intake and Output- Last 8 Hour 09/08/16 Cumulative From/Thru 07:00 08/27/16 16:32 - 09/08/16 04:40 Intake Total 675 ml 04445 ml Output Total 550 ml 41165 ml Balance 125 ml 5015 ml Intake Oral 675 ml 24312 ml IV Total 07855 ml Autotransfusion 250 ml Packed Cells 1085 ml Output Urine Total 550 ml 09313 ml Drainage Total 1145 ml Estimated Blood Loss 1000 ml # Bowel Movements 4 General: Alert Abdomen: Soft, Appropriately tender, Other (ostomy site is viable, pink, healing well; surgical incision site is c/d/i ) Extremities: Warm, Edema Generalized Neuro: Cranial Nerves 2-12 nl Catheters: None Result Diagram: 09/08/16 1200 09/08/16 1200 Assessment & Plan Impression POD# 8 Radical cystectomy Problems: Plan We discussed ambulation - He continues to improve, and he is working with PT UOP - has decreased however fluid intake has also decreased Leakage from urethra -we discussed that this is to be expected and will likely resolve over time We discussed PT - Still plan for pt to discharge this Wednesday09/09/16 VTE Prophylaxis: SCDs Resuscitation Status: CPR: Attempt Resuscitation Paulina Duran PA-C Sep 08, 2016 17:05
[2016-09-08 20:19] VITALS: BP 113/68; PULSE 96; RESP 16; O2SAT 91
[2016-09-08] MEDS: Polyethylene Glycol (PEG) 17 Gm Powder PO SCH (20:25)
[2016-09-09] MEDS: Heparin 5,000 Unit/mL Inj SUBQ SCH ×4 (00:29→23:35)
[2016-09-09] MEDS: Sodium Chloride LOK Flush 10 mL Syringe IVFLUSH SCH ×4 (00:29→21:00)
[2016-09-09 03:54] LABS: BASOPHILS % (AUTO) 0.6 % (0-3); EOSINOPHILS % (AUTO) 5.3 % (0-5); MONOCYTES % (AUTO) 8.6 % (4-12); Mean Corpuscular Hemoglobin 29.2 pg (27.0-35.0); NEUTROPHILS % (AUTO) 69.3 % (40-74); Platelet Count 214 bil/L (150-400)
[2016-09-09 04:23] LABS: Magnesium 1.6 mg/dL (1.6-2.6); Phosphorus 4.5 mg/dL (2.5-4.9)
[2016-09-09 05:04] VITALS: BP 108/68; PULSE 84; O2SAT 98
[2016-09-09] MEDS: LORazepam 0.5 mg Tablet PO PRN (06:31)
[2016-09-09] MEDS: Insulin LISPRO 300 Unit/3 mL Inj SUBQ SCH ×4 (08:00→23:35)
[2016-09-09] MEDS ORDERED: Levothyroxine 100 mCg/5 mL Inj IV SCH (08:30)
--- NOTE | 2016-09-09 09:28 | PCM.PNSURG ---
Subjective Date of Service: Sep 09, 2016 Date of Service: Sep 09, 2016 Visit Information: Reason for Visit Bladder Cancer Surgery/Surgery Date Post-Op Day # 9 Date of Admission: Aug 31, 2016 at 16:45 Hospital Day # 10 Subjective: Mr Knutson states that on average, his pain is about a 4, though when he falls asleep and wakes, his pain is about a 10. He continues to pass flatus. He is tolerating regular diet. Pain Management: PO, IV Push Objective Vital Sign- Last 8 Hours Date Time Temp Pulse Resp B/P Pulse Ox O2 Delivery O2 Flow Rate FiO2 09/09/16 05:04 36.8 84 108/68 98 OxyMask 2.00 Intake and Output- Last 8 Hour 09/09/16 Cumulative From/Thru 07:00 08/27/16 16:32 - 09/09/16 05:34 Intake Total 550 ml 74430 ml Output Total 575 ml 87624 ml Balance -25 ml 5290 ml Intake Oral 550 ml 60384 ml IV Total 44199 ml Autotransfusion 250 ml Packed Cells 1085 ml Output Urine Total 575 ml 37570 ml Drainage Total 1145 ml Estimated Blood Loss 1000 ml # Bowel Movements 0 4 General: Alert, Cooperative Abdomen: Soft (very obese), Appropriately tender, Ostomy pink & viable ( draining clear urine. Mucus was removed from the ostomy. Stents in place.), Other (hong c/d/i) Extremities: Edema Generalized Neuro: Cranial Nerves 2-12 nl Catheters: None Result Diagram: 09/09/16 0330 09/09/16 0330 Assessment & Plan Impression POD# 9 radical cystectomy with ileal conduit Problems: Plan I spoke with Dr Naqvi - Pt was missing his Levothyroxine during this hospitalization; he ordered it last night - Will continue to work on pain mgt DC planning once pain controlled; hopefully tomorrow VTE Prophylaxis: SCDs Resuscitation Status: CPR: Attempt Resuscitation Haven Fisher MD Sep 09, 2016 09:28
[2016-09-09] MEDS: Polyethylene Glycol (PEG) 17 Gm Powder PO SCH ×2 (09:29→20:56)
--- NOTE | 2016-09-09 12:12 | PCM.PNMED ---
Subjective Date of Service Sep 09, 2016 Subjective with aggressive Bowel regimen, no BM yet, refused enema, but willing to try later if no BM until this PM still mildly nauseated, no vomiting, methadone decreased per , still on iv dilaudid, required overnight as pain was unbearable as per PT, getting stronger, Exam Vital Signs Vital Sign - Last Date Time Temp Pulse Resp B/P Pulse Ox O2 Delivery O2 Flow Rate FiO2 09/09/16 05:04 36.8 84 108/68 98 OxyMask 2.00 09/08/16 20:19 16 Intake and Output 09/08/16 09/08/16 09/09/16 Cumulative From/Thru 15:00 23:00 07:00 08/27/16 16:32 - 09/09/16 06:45 Intake Total 850 ml 550 ml 15223 ml Output Total 550 ml 575 ml 98503 ml Balance 300 ml -25 ml 5290 ml Intake Oral 850 ml 550 ml 09585 ml IV Total 94089 ml Autotransfusion 250 ml Packed Cells 1085 ml Output Urine Total 550 ml 575 ml 22657 ml Drainage Total 1145 ml Estimated Blood Loss 1000 ml # Bowel Movements 0 0 4 Exam NAD, comfortably laying down on the bed no JVD, MMM, no LAD RRR, nl s1, s2 no mrg CTAB, no w,c S,ND,diffuse td, normoactiveBS+ warm, no edema, pulses 2/2 IVs and Medications Medications Reviewed: Medications were reviewed in detail Lab and Diagnostics Result Diagram: 09/09/16 03309/09/16 033 Cardiac Echo Impressions Echocardiogram Report: Niles Rubio on 09/03/2016 06:10 Interpretation Summary No findings that would suggest endocarditis. Procedure: Informed consent for Transesophageal Echocardiogram, and use of a contrast agent as needed, was obtained prior to the procedure. The patient was brought to the [facility] in a fasting state. An intravenous line was placed. A topical anesthetic agent was used for oropharangeal anesthesia. A bite block was inserted. Sedation was managed by anesthesiologist; see anesthesiology notes for details. A 2D transesophageal echocardiogram with spectral and color flow Doppler was performed. A multifrequency, multiplane transesopheageal echocardiographic endoscope was inserted and manipulated in the standard fashion to achieve multiplane views. The usual views were obtained; basal, mid-esophageal, transgastric and aortic views. The patient's vital signs, including blood pressure, heart rate, pulse oximetry and cardiac rhythm were monitored throughout the procedure and remained stable. The patient tolerated the procedure well without evidence of orophangeal or esophageal trauma. There is no prior echocardiogram noted for this patient. The patient was in normal sinus rhythm during the exam. There were no complications. Left Ventricle: The left ventricle is normal in size, wall thickness, and systolic function without any focal wall motion abnormalities. The ejection fraction is estimated to be 55-60%. Right Ventricle: The right ventricle is normal in size and function. Atria: No thrombus is detected in the left atrial appendage. No left atrial mass or thrombus visualized. Mitral Valve: The mitral valve is normal in structure and function. There is no vegetation seen on the mitral valve. Aortic Valve: The aortic valve is trileaflet. The aortic valve is mildly calcified. There is no aortic valvular vegetation. Tricuspid Valve: The tricuspid valve is normal in structure and function. There is no tricuspid valve vegetation. Pulmonic Valve: The pulmonic valve is normal in structure and function. There is no vegetation on the pulmonic valve. Great Vessels: The aortic root is normal size. Pericardium/ Pleura: There is no pericardial effusion. Reading Physician:PM Assessment & Plan 51-year-old male admitted 08/31, s/p radical cystectomy and prostatectomy and ileal loop 09/01 for bladder cancer acute, active #Acute/chronic pain, POA, difficulty to control in post op course -pt still requiring iv dilaudid,q3h PO dilaudid 8mg, methadone / tid -appreciate palliative care for pain control on dispo #Bladder cancer- s/p radical cystectomy and prostatectomy and ileal loop 08/31 for bladder cancer -Management per Dr. Phillip TAVERAS, anticipate d/c on Wed -daily PT for increase mobility #intractable nausea, no vomiting likely developed in post-op course, probable opioid induced or severe ileus in the setting of severe hypothyroid state, CT abd earlier and KUB 09/07 didn't show SBO. -zofran prn for n/v -will monitor sx -continue aggressive bowel regimen, enema prn #severe hypothyroid state, POA, noted pt was off on LT4 for 8days per family, resumed 50mcg po by , -will do 50mcg iv for 1-2days, d/c with 100mcg qd, recheck TFT in 6wks by PCP chronic, stable,resolved #Lower extr weakness 09/01- resolved with decreased rate of epidural 09/02. Physical therapy to see and mobilize 09/04 #Acute blood loss anemia, Hgb 6.6 08/31, 8.9 09/02, 10.3 09/05, stable, s/p 2 u of RBC 08/31 #Recent port infection with MSSA earlier this month (port removed)-not up to MANE today - as per Dr Cameron continue Ancef 2 gm IV until Sep 03... Ancef discontinued -MANE completed 09/03 negative #Type II diabetes mellitus- Accuchecks, ISS,BS in target #Anxiety (unclear if he also has a history of depression) - Resume sertraline when able - IV lorazepam prn #Prophylaxis -DVT proph - SCD dispo: likely 1-2more days given difficulty of pain management, hypothyroidism, hopefully home with VTE Prophylaxis: SCDs VTE Mechanical Devices: Intermittant Pneumatic CD Resuscitation Status: CPR: Attempt Resuscitation Time spent 35min Che Shaver MD Sep 09, 2016 12:12
--- NOTE | 2016-09-09 13:49 | PCM.PALLBR ---
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 Current pain regimen: Methadone 15 mg oral at 0630 and 1430 and methadone 25 mg oral at 2230. In last 24 hours, he only had 4mg IV hydromorphone (two 2mg doses over 12 hours apart), which is a great improvement in his IV hydromorphone use. In the last 24 hours, he had 64mg oral hydromorphone ( 8 doses of 8 mg over 24 hours). Today's pain medication changes: in an effort to decrease the amount of PRN hydromorphone he needs for breakthrough pain, I recommend (and have ordered) an increase in the morning and afternoon doses of methadone by 10mg. This would eventually replace his prn hydromorphone once the methadone reaches effective blood levels in 3-5 days. So, pain regimen is changing today as follows: 1. Methadone 25mg po TID. (first 25mg dose at 1430pm today) 2. Decrease availability of IV dilaudid from q 1 hour to q 4 hours, and monitor to goal to eliminate use of IV hydromorphone (if possible). 3. Permit ongoing PRN use of hydromorphone po 8 mg q 3 hours for breakthrough pain. Over next 3-5 days, should see decrease in the need to use oral hydromorphone for breakthrough pain as methadone starts to reach effective blood levels. 4. Check EKG today (last EKG had normal QRS on 07/21/16). Anxiety- continue lorazepam 1 mg TID prn. Sertraline 100 mg Q day restarted on Insomnia-tied to his anxiety- resumed alprazolam 1 mg at HS prn Nausea--a major issue with last hospitalization- now intermittent. Discontinue zofran and substitute q HS 5mg olanzapine (which has worked for his nausea and anxiety in past according to Dr. Romero's outpatient PC notes). Fatigue- concomitant hypothyroidism. Dr. Naqvi discovered night of 09/08 that he has not been receiving his levothyroxine since admission; restarted 09/08. TSH in 09/09 AM is 63.870. Discussed with Dr. Shaver who is implementing IV levothyroxine. Palliative Care recommends IV 100mcg today and tomorrow a.m.). Plan is to send pt home on oral levothyroxine 100mcg po q day and follow closely with his PCP. Constipation: trial of relistor SC x1 today to relieve what is likely opiate induced constipation. Monitor for effectiveness. Incentive spirometry ordered; physical therapy to continue today. Talked with him about progressive deconditioning and the need to push through his discomfort to some degree to build his strength back up. MSSA bacteremia- last hospitalization. MANE negative for endocarditis and antibiotics discontinued by infectious disease Goal will be to get him off of his benzodiazepines over the next few months and begin extended taper of his pain meds. Plan on close follow-up/management with outpatient palliative care/Dr. Romero. Dr Salvador has been willing to manage these which helps the pt with driving distance. -DPOA/Advanced Directives/POLST--full code, Sherly- is defined as DPOAHC -Family/emotional support-Sherly -Spiritual support-he is not particularly interested Problems: End of Life Preferences FULL CODE Disposition expects to go home Resuscitation Status Resuscitation Status: CPR: Attempt Resuscitation POLST Updates/Changes POLST Discussed with: Patient POLST Review Outcome: No Change . Pain: Severe Symptom management: Nausea, Anxiety, Constipation Total time 65 minutes; >50% face to face with patient and/or family, providing counselling regarding plans and recommendations, and in care coordination with his/her medical teams. Palliative Brief Note Date of Service Sep 09, [address] Garcia made afternoon rounds on patient, covering for Dr. Naqvi. Prior to visiting, reviewed and updated records in the EMR in detail and spoke with his nurse. When I arrived, patient is lying flat in bed, working with PT. He has been unable to get out of bed due to pain. But he is going through ROM exercises with therapist. Movement of his right leg causes radiation of pain into right side of abdomen. It is dull and deep. He continues to look pale, weak, somewhat depressed. He states he was able to stay off IV dilaudid all day and feels his pain control is improving. He had a shower again today and is trying to cooperate and increase his mobilization. I counseled him on plan to increase his methadone and still leave the same dose of dilaudid oral available for breakthrough pain, but explained that in 3-4 days, he may not need as much oral dilaudid as the methadone begins to kick in. I spoke with his RN Gopi and asked for a 12 lead EKG. RN will call me when results are available to review. On exam today, heavyset pale man lying flat in bed. Skin is warm and damp. Head and neck exam without acute changes. Lungs clear, heart sounds regular. Extremities with peeling and scaling skin over the feet, significant dependent edema, mild erythema in lower tibial area bilaterally. Princess Garcia MD Sep 09, 2016 13:49
[2016-09-09] MEDS ORDERED: Methylnaltrexone 12 mg/0.6 mL Inj SUBQ ONE (13:50)
[2016-09-09] MEDS: 0.9% Sodium Chloride 250 ML IV SCH (14:35)
[2016-09-09] MEDS: MetoCLOpramide 5 mg/mL 2 mL Inj IVPUSH PRN (15:13)
[2016-09-09] MEDS ORDERED: OLANZapine Zydis ODT 5 mg Tablet PO SCH (16:30)
[2016-09-09] MEDS: HYDROmorphone 1 mg/mL Inj IVPUSH PRN (16:34)
[2016-09-09 17:24] VITALS: BP 103/67; PULSE 98; RESP 16; O2SAT 94
[2016-09-09 20:38] VITALS: BP 114/70; PULSE 89; RESP 18; O2SAT 93
[2016-09-09] MEDS: OLANZapine Zydis ODT 5 mg Tablet PO SCH (20:57)
[2016-09-10 04:32] VITALS: BP 115/71; PULSE 86; RESP 18; O2SAT 98
[2016-09-10] MEDS: LORazepam 0.5 mg Tablet PO PRN ×3 (04:37→18:12)
[2016-09-10] MEDS: Insulin LISPRO 300 Unit/3 mL Inj SUBQ SCH ×4 (08:00→22:00)
[2016-09-10] MEDS: Sodium Chloride LOK Flush 10 mL Syringe IVFLUSH SCH ×2 (08:28→15:01)
[2016-09-10] MEDS ORDERED: Levothyroxine 100 mCg/5 mL Inj IV SCH ×2 (08:30)
[2016-09-10] MEDS: Heparin 5,000 Unit/mL Inj SUBQ SCH ×2 (08:30→16:53)
[2016-09-10] MEDS: Polyethylene Glycol (PEG) 17 Gm Powder PO SCH ×2 (08:30→20:40)
[2016-09-10 08:49] VITALS: BP 117/71; PULSE 86; RESP 16; O2SAT 94
--- NOTE | 2016-09-10 09:22 | PCM.PNSURG ---
Subjective Date of Service: Sep 10, 2016 Date of Service: Sep 10, 2016 Visit Information: Reason for Visit Bladder Cancer Surgery/Surgery Date Post-Op Day # 10 Date of Admission: Aug 31, 2016 at 16:45 Hospital Day # Subjective: Mr Knutson's pain is better controlled. He had two hard bowel movements yesterday. He is tolerating nutrition by mouth but his appetite isn't great, though he notes his appetite is at his preoperative baseline. He denies n/v. He has had a few drops of fluid per urethra, but he notes it's scant and resolves quickly. Gastrointestinal: Passing Stool Pain Management: PO Objective Vital Sign- Last 8 Hours Date Time Temp Pulse Resp B/P Pulse Ox O2 Delivery O2 Flow Rate FiO2 09/10/16 08:49 36.6 86 16 117/71 94 Room Air 09/10/16 04:32 36.7 86 18 115/71 98 Room Air Intake and Output- Last 8 Hour 09/10/16 Cumulative From/Thru 07:00 08/27/16 16:32 - 09/10/16 05:55 Intake Total 1000 ml 16595 ml Output Total 1050 ml 11836 ml Balance -50 ml 5140 ml Intake Oral 1000 ml 38651 ml IV Total 56972 ml Autotransfusion 250 ml Packed Cells 1085 ml Output Urine Total 1050 ml 36062 ml Drainage Total 1145 ml Estimated Blood Loss 1000 ml # Bowel Movements 1 5 General: Alert Abdomen: Soft (obese), Other (urostomy is pink and healthy appearing, stents in place.) Extremities: Edema Generalized Neuro: Cranial Nerves 2-12 nl Catheters: None Result Diagram: 09/09/16 0330 09/09/16 0330 Assessment & Plan Impression POD #10 RC w IC Problems: Plan DC planning We discussed activity and restrictions He will f/u 09/14/16 for staple and stent removal at 2:30 PM, check in at 2:15 PM VTE Prophylaxis: SCDs Resuscitation Status: CPR: Attempt Resuscitation Haven Fisher MD Sep 10, 2016 09:22
--- NOTE | 2016-09-10 09:24 | PCM.DISURG ---
Surgical Discharge Instruction Date of Service Sep 10, 2016 Dates of Hospitalization Date of Hospital Admission Aug 31, 2016 at 16:45 Providers Admitting Physician: Haven Fisher MD Primary Care Physician: Fausto Salvador MD Attending Physician: Haven Fisher MD Discharge Diagnosis Discharge Diagnosis bladder cancer Post Operative diagnosis bladder cancer Diet Discharge Diet: No restrictions Activity Discharge Activity-General: Be up and about, Balance rest and activity, No lifting >15 pounds for 2 weeks Dressing and Incisional Care Dressing Care: Keep dressing clean, dry & intact Hygiene: May shower, DO NOT soak incision under water, NO bathtub, hot tub or whirlpool Follow Up Plan Follow Up Plan 09/14/16 at 2:15 PM check in for 2:30 PM appt for staple and ureteral stent removal Call your provider for: Fever, Chills, Shortness of breath, Increasing abdominal pain, Vomiting, Increasing wound pain, Discharge @ incision, pus discharge Haven Fisher MD Sep 10, 2016 09:24
--- NOTE | 2016-09-10 10:27 | PCM.PNMED ---
Subjective Date of Service Sep 10, 2016 Subjective pt is doing well, had BM, stronger mildly nauseated but didn't requite iv dilaudid Exam Vital Signs Vital Sign - Last Date Time Temp Pulse Resp B/P Pulse Ox O2 Delivery O2 Flow Rate FiO2 09/10/16 08:49 36.6 86 16 117/71 94 Room Air 09/09/16 05:04 2.00 Intake and Output 09/09/16 09/09/16 09/10/16 Cumulative From/Thru 15:00 23:00 07:00 08/27/16 16:32 - 09/10/16 05:55 Intake Total 700 ml 1000 ml 22950 ml Output Total 800 ml 1050 ml 76414 ml Balance -100 ml -50 ml 5140 ml Intake Oral 700 ml 1000 ml 92383 ml IV Total 00223 ml Autotransfusion 250 ml Packed Cells 1085 ml Output Urine Total 800 ml 1050 ml 14028 ml Drainage Total 1145 ml Estimated Blood Loss 1000 ml # Bowel Movements 1 5 Exam NAD, comfortably laying down on the bed no JVD, MMM, no LAD RRR, nl s1, s2 no mrg CTAB, no w,c S,ND,diffuse td, normoactiveBS+ chronic erythematous/scaly skin chg on bilateral LE, IVs and Medications Medications Reviewed: Medications were reviewed in detail Lab and Diagnostics Result Diagram: 09/09/1632909/09/16329 Cardiac Echo Impressions Echocardiogram Report: Niles Rubio on 09/03/2016 06:10 Interpretation Summary No findings that would suggest endocarditis. Procedure: Informed consent for Transesophageal Echocardiogram, and use of a contrast agent as needed, was obtained prior to the procedure. The patient was brought to the [facility] in a fasting state. An intravenous line was placed. A topical anesthetic agent was used for oropharangeal anesthesia. A bite block was inserted. Sedation was managed by anesthesiologist; see anesthesiology notes for details. A 2D transesophageal echocardiogram with spectral and color flow Doppler was performed. A multifrequency, multiplane transesopheageal echocardiographic endoscope was inserted and manipulated in the standard fashion to achieve multiplane views. The usual views were obtained; basal, mid-esophageal, transgastric and aortic views. The patient's vital signs, including blood pressure, heart rate, pulse oximetry and cardiac rhythm were monitored throughout the procedure and remained stable. The patient tolerated the procedure well without evidence of orophangeal or esophageal trauma. There is no prior echocardiogram noted for this patient. The patient was in normal sinus rhythm during the exam. There were no complications. Left Ventricle: The left ventricle is normal in size, wall thickness, and systolic function without any focal wall motion abnormalities. The ejection fraction is estimated to be 55-60%. Right Ventricle: The right ventricle is normal in size and function. Atria: No thrombus is detected in the left atrial appendage. No left atrial mass or thrombus visualized. Mitral Valve: The mitral valve is normal in structure and function. There is no vegetation seen on the mitral valve. Aortic Valve: The aortic valve is trileaflet. The aortic valve is mildly calcified. There is no aortic valvular vegetation. Tricuspid Valve: The tricuspid valve is normal in structure and function. There is no tricuspid valve vegetation. Pulmonic Valve: The pulmonic valve is normal in structure and function. There is no vegetation on the pulmonic valve. Great Vessels: The aortic root is normal size. Pericardium/ Pleura: There is no pericardial effusion. Reading Physician:PM Assessment & Plan 51-year-old male admitted 08/31, s/p radical cystectomy and prostatectomy and ileal loop 09/01 for bladder cancer acute, active #Acute/chronic pain, POA, difficulty to control in post op course -pain is better controlled with q3h PO dilaudid 8mg, methadone / tid -appreciate palliative care for pain control on dispo #Bladder cancer- s/p radical cystectomy and prostatectomy and ileal loop 08/[address] cancer per Dr. Phillip TAVERAS, -He will f/u 09/14/16 for staple and stent removal at 2:30 PM, check in at 2:15 PM -daily PT for increase mobility #intractable nausea, no vomiting likely developed in post-op course, probable opioid induced or severe ileus in the setting of severe hypothyroid state, CT abd earlier and KUB 09/07 didn't show SBO. pt responded bowel regimen, symptoms improved. -zofran prn for n/v -will monitor sx -continue aggressive bowel regimen, enema prn #severe hypothyroid state, POA, noted pt was off on LT4 for 8days per family, resumed 50mcg po by , -continue 100mcg iv for today, d/c with 100mcg qd, recheck TFT in 6wks by PCP chronic, stable,resolved #Lower extr weakness 09/01- resolved with decreased rate of epidural 09/02. Physical therapy to see and mobilize 09/04 #Acute blood loss anemia, Hgb 6.6 08/31, 8.9 09/02, 10.3 09/05, stable, s/p 2 u of RBC 08/31 #Recent port infection with MSSA earlier this month (port removed)-not up to MANE today - as per Dr Cameron continue Ancef 2 gm IV until Sep 03... Ancef discontinued -MANE completed 09/03 negative #Type II diabetes mellitus- Accuchecks, ISS,BS in target #Anxiety (unclear if he also has a history of depression) - Resume sertraline when able - IV lorazepam prn #Prophylaxis -DVT proph - SCD dispo: tomorrow, Home with VTE Prophylaxis: SCDs VTE Mechanical Devices: Intermittant Pneumatic CD Resuscitation Status: CPR: Attempt Resuscitation Time spent 35min Che Shaver MD Sep 10, 2016 10:26
[2016-09-10] MEDS: 0.9% Sodium Chloride 250 ML IV SCH (12:59)
[2016-09-10 13:00] VITALS: BP 109/69; PULSE 91; RESP 18; O2SAT 96
[2016-09-10] MEDS: HYDROmorphone 1 mg/mL Inj IVPUSH PRN ×2 (15:01→20:37)
--- NOTE | 2016-09-10 16:20 | PCM.PALLBR ---
Palliative Care Recommendation Summary of palliative recommendations: -Symptom management (Pain/other) Pain- epidural and CHEMIST PROTEINS discontinued on 09/03. Review of MAR for past 24 hours: In last 24 hours, he only had 2mg IV hydromorphone. In the last 24 hours, he had 48mg oral hydromorphone ( 12mg less than yesterday) . Discharge home on: 1. Methadone 25mg po TID. (Today is Day 2 of this regimen) 2. Discontinue IV dilaudid. (done today) 3. Permit ongoing PRN use of hydromorphone po 8 mg q 3 hours for breakthrough pain. Over next 3-5 days, should see decrease in the need to use oral hydromorphone for breakthrough pain as methadone starts to reach effective blood levels. Write discharge prescription for HM 8mg po q 3 hours prn 7day supply. Verbally instruct patient to take 4-8mg depending on pain level. 4. EKG on 09/09 had normal QTc of 458. (Prior EKG had normal QTc on 07/21/16. Repeat EKG q 2months. (EKGs no longer needed if pt elects hospice at some point. ) Anxiety- continue lorazepam 1 mg TID prn. Sertraline 100 mg Q day restarted on Insomnia-tied to his anxiety- resumed alprazolam 1 mg at HS prn Nausea--a major issue with last hospitalization- now intermittent. Continue q HS 5mg olanzapine (which has worked better for his nausea and anxiety in past than zofran and other antiemetics according to Dr. Romero's outpatient PC notes) and 2.5mg olanzapine q 4 hours PRN for breakthrough nausea. Fatigue- concomitant hypothyroidism. Dr. Naqvi discovered night of 09/08 that he has not been receiving his levothyroxine since admission; restarted 09/08. TSH in 09/09 AM is 63.870. Discussed with Dr. Shaver who is implementing IV levothyroxine. Palliative Care recommended IV 100mcg 09/09 and 09/10. Pt received this. On 09/11, recommend give one last dose of IV 100mcg and send home on oral 100mcg po q day and instructions to follow thyroid function closely with his PCP. Constipation: trial of relistor SC x1 09/09 was effective to relieve what opiate induced constipation. On 09/10: his Senna and Colace were doubled and scheduled BID by Dr. Garcia. Pt needs counseling on titrating up his laxative to yield one good BM daily to prevent confusion/obstipation from opiate induced constipation. MSSA bacteremia- last hospitalization. MANE negative for endocarditis and antibiotics discontinued by infectious disease Goal will be to get him off of his benzodiazepines over the next few months and begin extended taper of his pain meds. Plan on close follow-up/management with outpatient palliative care/Dr. Romero. Dr Salvador has been willing to manage these which helps the pt with driving distance. -DPOA/Advanced Directives/POLST--full code, Sherly- is defined as DPOAHC -Family/emotional support-Sherly -Spiritual support-he is not particularly interested Problems: End of Life Preferences FULL CODE Disposition expects to go home Resuscitation Status Resuscitation Status: CPR: Attempt Resuscitation POLST Updates/Changes POLST Discussed with: Patient POLST Review Outcome: No Change . Pain: Severe Symptom management: Nausea, Anxiety, Constipation Total time 65 minutes; >50% face to face with patient and/or family, providing counselling regarding plans and recommendations, and in care coordination with his/her medical teams. Palliative Brief Note Date of Service Sep 10, [address] Garcia saw pt on burial needs salesperson rounds, covering for Dr. Naqvi. Prior to visiting, spoke with his day shift nurse who reports that assistant casino shift manager says he was comfortable last night and slept better. When I arrived, agrees that his pain is better and he got more sleep. I counseled him again that the new methadone dosing will likely reach optimal blood levels on Wednesday and he may notice more sleepiness which would be his sign to back off on the amount of dilaudid he takes for breakthrough pain. He is currently taking 8mg and will likely need 4-6mg in near future. His EKG yesterday had a normal Qtc. On exam today, heavyset pale man lying in bed. Skin is warm and dry. He makes reasonable eye contact.His speech is clear. He is able to organize his thoughts and articulate his wishes. Head and neck exam without acute changes. Lungs clear, heart sounds regular. Extremities with peeling and scaling skin over the feet, significant dependent edema, mild erythema in lower tibial area bilaterally. Princess Garcia MD Sep 10, 2016 16:20
[2016-09-10 21:07] VITALS: BP 110/60; PULSE 104; RESP 18; O2SAT 94
[2016-09-10] MEDS: OLANZapine Zydis ODT 5 mg Tablet PO SCH (22:19)
[2016-09-11] MEDS: HYDROmorphone 1 mg/mL Inj IVPUSH PRN ×2 (01:02→05:26)
[2016-09-11] MEDS: Sodium Chloride LOK Flush 10 mL Syringe IVFLUSH SCH ×3 (01:02→16:30)
[2016-09-11] MEDS: Heparin 5,000 Unit/mL Inj SUBQ SCH ×3 (01:33→17:58)
[2016-09-11] MEDS ORDERED: Sodium Biphos-Phos 133 mL Enema RECTAL ONE (02:05)
[2016-09-11] MEDS: LORazepam 0.5 mg Tablet PO PRN ×2 (03:17→14:32)
[2016-09-11 06:20] VITALS: BP 127/76; PULSE 99; RESP 18; O2SAT 97
[2016-09-11] MEDS: Insulin LISPRO 300 Unit/3 mL Inj SUBQ SCH ×4 (08:00→20:21)
[2016-09-11] MEDS: Polyethylene Glycol (PEG) 17 Gm Powder PO SCH ×2 (08:58→20:07)
[2016-09-11] MEDS ORDERED: PEG/Electrolytes 4,000 mL Solution PO ONE (09:50)
[2016-09-11] MEDS ORDERED: Magnesium Hydroxide 10 mL Oral Concentration PO PRN (09:55)
[2016-09-11] MEDS ORDERED: LEVO100T6 PO (12:08)
[2016-09-11] MEDS ORDERED: MTH10T PO (12:08)
--- NOTE | 2016-09-11 12:36 | PCM.PNMED ---
Subjective Date of Service Sep 11, 2016 Subjective pt had large BM but still very weak, consptipated, required dilaudid iv overnight, Exam Vital Signs Vital Sign - Last Date Time Temp Pulse Resp B/P Pulse Ox O2 Delivery O2 Flow Rate FiO2 09/11/16 09:42 Supplement Oxygen 09/11/16 06:20 36.7 99 18 127/76 97 2.00 Intake and Output 09/10/16 09/10/16 09/11/16 Cumulative From/Thru 15:00 23:00 07:00 08/27/16 16:32 - 09/11/16 06:38 Intake Total 1257 ml 440 ml 39524 ml Output Total 1100 ml 650 ml 65794 ml Balance 157 ml -210 ml 5087 ml Intake Oral 1257 ml 440 ml 13871 ml IV Total 85289 ml Autotransfusion 250 ml Packed Cells 1085 ml Output Urine Total 1100 ml 650 ml 42740 ml Drainage Total 1145 ml Estimated Blood Loss 1000 ml # Bowel Movements 1 4 10 Exam NAD, comfortably laying down on the bed no JVD, MMM, no LAD RRR, nl s1, s2 no mrg CTAB, no w,c S,ND,diffuse td, normoactiveBS+ chronic erythematous/scaly skin chg on bilateral LE, IVs and Medications Medications Reviewed: Medications were reviewed in detail Lab and Diagnostics Result Diagram: 09/09/1632909/09/16329 Cardiac Echo Impressions Echocardiogram Report: Niles Rubio on 09/03/2016 06:10 Interpretation Summary No findings that would suggest endocarditis. Procedure: Informed consent for Transesophageal Echocardiogram, and use of a contrast agent as needed, was obtained prior to the procedure. The patient was brought to the [facility] in a fasting state. An intravenous line was placed. A topical anesthetic agent was used for oropharangeal anesthesia. A bite block was inserted. Sedation was managed by anesthesiologist; see anesthesiology notes for details. A 2D transesophageal echocardiogram with spectral and color flow Doppler was performed. A multifrequency, multiplane transesopheageal echocardiographic endoscope was inserted and manipulated in the standard fashion to achieve multiplane views. The usual views were obtained; basal, mid-esophageal, transgastric and aortic views. The patient's vital signs, including blood pressure, heart rate, pulse oximetry and cardiac rhythm were monitored throughout the procedure and remained stable. The patient tolerated the procedure well without evidence of orophangeal or esophageal trauma. There is no prior echocardiogram noted for this patient. The patient was in normal sinus rhythm during the exam. There were no complications. Left Ventricle: The left ventricle is normal in size, wall thickness, and systolic function without any focal wall motion abnormalities. The ejection fraction is estimated to be 55-60%. Right Ventricle: The right ventricle is normal in size and function. Atria: No thrombus is detected in the left atrial appendage. No left atrial mass or thrombus visualized. Mitral Valve: The mitral valve is normal in structure and function. There is no vegetation seen on the mitral valve. Aortic Valve: The aortic valve is trileaflet. The aortic valve is mildly calcified. There is no aortic valvular vegetation. Tricuspid Valve: The tricuspid valve is normal in structure and function. There is no tricuspid valve vegetation. Pulmonic Valve: The pulmonic valve is normal in structure and function. There is no vegetation on the pulmonic valve. Great Vessels: The aortic root is normal size. Pericardium/ Pleura: There is no pericardial effusion. Reading Physician:PM Assessment & Plan 51-year-old male admitted 08/31, s/p radical cystectomy and prostatectomy and ileal loop 09/01 for bladder cancer acute, active #Acute/chronic pain, POA, difficulty to control in post op course -pain is better controlled with q3h PO dilaudid 8mg, methadone / tid, still requiring dilaudid iv -appreciate palliative care for pain control on dispo #Bladder cancer- s/p radical cystectomy and prostatectomy and ileal loop 08/[address] for [address] cancer per Dr. Phillip TAVERAS, -He will f/u 09/14/16 for staple and stent removal at 2:30 PM, check in at 2:15 PM -daily PT for increase mobility #intractable nausea, no vomiting likely developed in post-op course, probable opioid induced or severe ileus in the setting of severe hypothyroid state, CT abd earlier and KUB 09/07 didn't show SBO. -pt responded bowel regimen, symptoms improving, -zofran prn for n/v -will monitor sx -continue aggressive bowel regimen, enema prn, ordered Golytely today #severe hypothyroid state, POA, noted pt was off on LT4 for 8days per family, resumed 50mcg po by , -[id number] iv for 3D, switched to 100mcg qd, recheck TFT in 6wks by PCP chronic, stable,resolved #Lower extr weakness 09/01- resolved with decreased rate of epidural 09/02. Physical therapy to see and mobilize 09/04 #Acute blood loss anemia, Hgb 6.6 08/31, 8.9 09/02, 10.3 09/05, stable, s/p 2 u of RBC 08/31 #Recent port infection with MSSA earlier this month (port removed), as per Dr Cameron continue Ancef 2 gm IV until Sep 03... Ancef discontinued 09/04, MANE completed 09/03 negative #Type II diabetes mellitus- Accuchecks, ISS,BS in target #Anxiety (unclear if he also has a history of depression) - Resume sertraline when able - IV lorazepam prn #Prophylaxis -DVT proph - SCD dispo: in 1-2days, Home with HH, d/c being delayed given difficult pain control , severe ileus VTE Prophylaxis: SCDs VTE Mechanical Devices: Intermittant Pneumatic CD Resuscitation Status: CPR: Attempt Resuscitation Time spent 35min Che Shaver MD Sep 11, 2016 12:36
[2016-09-11 12:45] VITALS: BP 150/91; PULSE 89; RESP 18; O2SAT 100
[2016-09-11] MEDS ORDERED: PEG/Electrolytes 4,000 mL Solution ONE (15:23)
--- NOTE | 2016-09-11 16:12 | PCM.PALLBR ---
Palliative Care Recommendation Summary of palliative recommendations: -Symptom management (Pain/other) Pain- epidural and WHARF TENDER HEAD discontinued on 09/03. Plan to discharge home on: 1. Methadone 25mg po Q 8 hr. (Today is Day 3 of this regimen). Today I printed a new prescription for his methadone and attached to his chart with those current instructions. 2. Continue PRN use of hydromorphone po 4-8 mg q 3 hours for breakthrough pain. Review of his [facility] on [facility] indicate that he has adequate supply of his hydromorphone tabs at home. Over next several days, should see decrease in the need to use oral hydromorphone for breakthrough pain as methadone starts to reach effective blood levels. 3. EKG on 09/09 had normal QTc of 458. (Prior EKG had normal QTc on 07/21/16. Repeat EKG q 2months. (EKGs no longer needed if pt elects hospice at some point. ) Anxiety- continue lorazepam 1 mg TID prn. Sertraline 100 mg Q day restarted on Insomnia-tied to his anxiety- resumed alprazolam 1 mg at HS prn Nausea--a major issue with last hospitalization- now intermittent. Continue q HS 5mg olanzapine (which has worked better for his nausea and anxiety in past than zofran and other antiemetics according to Dr. Romero's outpatient PC notes) and 2.5mg olanzapine q 4 hours PRN for breakthrough nausea. New printed prescription attached to his chart Fatigue- concomitant hypothyroidism. Today I printed a new prescription for levothyroxine, 100 g daily, and attached to his chart. On 09/10: his Senna and Colace were doubled and scheduled BID by Dr. Garcia. Pt needs counseling on titrating up his laxative to yield one good BM daily to prevent confusion/obstipation from opiate induced constipation. MSSA bacteremia- last hospitalization. MANE negative for endocarditis and antibiotics discontinued by infectious disease Goal will be to get him off of his benzodiazepines over the next few months and begin extended taper of his pain meds. Plan on close follow-up/management with outpatient palliative care/Dr. Romero. Dr Salvador has been willing to manage these which helps the pt with driving distance. -DPOA/Advanced Directives/POLST--full code, Sherly- is defined as DPOAHC -Family/emotional support-Sherly -Spiritual support-he is not particularly interested Problems: End of Life Preferences FULL CODE Disposition expects to go home on 09/12/16 Resuscitation Status Resuscitation Status: CPR: Attempt Resuscitation POLST Updates/Changes Previous POLST?: No . Pain: Moderate Symptom management: Nausea, Drowsiness/sleepiness, Pain Total time 55 minutes; >50% face to face with patient and family, providing counselling regarding plans and recommendations, and in care coordination with his medical teams. Palliative Brief Note Date of Service Sep 11, 2016 . Returned to reevaluate patient. Prior to visiting, reviewed his updated records in the EMR in detail and spoke with his nurse. Spoke later with his hospitalist and with patient's . When we arrived, he was resting in bed. Indicates that his pain control is improved. Still has been using some IV Dilaudid for breakthrough. He is drowsy and a little bit slow/confused. Is planning on going home on Wednesday. On exam, vitals noted. Skin pale, warm and dry. Lungs clear anterolaterally, heart sounds regular, abdomen obese, soft, with mild diffuse tenderness but no peritoneal signs. Left lower extremity with Kerlix dressing in place, right lower extremity with brawny edema as before. Laboratory studies reviewed in detail. Thomas Naqvi MD Sep 11, 2016 16:12
[2016-09-11] MEDS ORDERED: OLAN2.5T20 PO (16:49)
[2016-09-11] MEDS: OLANZapine Zydis ODT 5 mg Tablet PO SCH (20:06)
[2016-09-11 20:16] VITALS: BP 105/66; PULSE 92; RESP 18; O2SAT 98
[2016-09-12] MEDS: Heparin 5,000 Unit/mL Inj SUBQ SCH ×2 (00:07→08:25)
[2016-09-12] MEDS: Sodium Chloride LOK Flush 10 mL Syringe IVFLUSH SCH ×2 (00:07→08:24)
[2016-09-12] MEDS: LORazepam 0.5 mg Tablet PO PRN (00:08)
[2016-09-12 05:40] VITALS: BP 123/78; PULSE 86; RESP 18; O2SAT 95
[2016-09-12] MEDS: Insulin LISPRO 300 Unit/3 mL Inj SUBQ SCH (08:00)
[2016-09-12] MEDS: Polyethylene Glycol (PEG) 17 Gm Powder PO SCH (08:24)
[2016-09-12 08:56] VITALS: BP 109/73; PULSE 85; RESP 18; O2SAT 93
[2016-09-12] MEDS ORDERED: METH5TAB3 PO (10:13)
--- NOTE | 2016-09-12 10:22 | PCM.DIMED ---
Che Shaver MD 09/10/16 1205: Discharge Instructions Date of Service Sep 10, 2016 Dates of Hospitalization Aug 31, 2016 at 16:45 Patient Instructions Patient Instructions You were hospitalized for elective surgery of you cancer in you bladder, you tolerated surgery well, but pain was continued, eventually managed well with current regimen. You were also found to have severely reduced thyroid function, which was treated with increased dose of thyroid hormone treatment. Please follow up with . Discharge to home with HH, RN visit, PT 3x/wk for 1month or thereafter based on needs Follow-up plan 09/14/16 at 2:15 PM check in for 2:30 PM appt for staple and ureteral stent removal Lizzie Barrera MD 09/12/16 1022: Discharge Instructions Date of Service September 12, 2016 Dates of Hospitalization 08/28/16 Discharge Diagnosis Discharge Diagnosis Acute/chronic pain, POA, difficulty to control in post op course #Bladder cancer- s/p radical cystectomy and prostatectomy and ileal loop 08/31 for bladder cancer #intractable nausea #severe hypothyroid state #Lower extr weakness #Acute blood loss anemia #Recent port infection with MSSA #Type II diabetes mellitus #Anxiety Diet Discharge Diet: No restrictions Activity Discharge Activity: No restrictions Call your provider Call your provider for: Fever or Chills, Shortness of breath, Bleeding, Chest pain, Vomitting, Excessive diarrhea, Weakness (unilateral) Patient Instructions Patient Instructions Follow up with Dr. Romero, Dr. Ward and Dr. Phillip wilson, as already arranged. Che Shaver MD Sep 10, 2016 12:05 Lizzie Barrera MD Sep 12, 2016 10:22
--- NOTE | 2016-09-12 12:20 | PCM.DC.MED ---
Discharge Summary Date of Service Sep 12, 2016 Dates of Hospitalization Date of Hospital Admission Aug 31, 2016 at 16:45 Date of Discharge: Sep 12, 2016 Providers: Admitting Physician: Haven Fisher MD Primary Care Physician: Fausto Salvador MD Attending Physician: Ruy Villavicencio MD Diagnosis at Time of Discharge Diagnosis at Time of Discharge Acute/chronic pain, POA, difficulty to control in post op course #Bladder cancer- s/p radical cystectomy and prostatectomy and ileal loop 08/31 for bladder cancer #intractable nausea #severe hypothyroid state #Lower extr weakness #Acute blood loss anemia #Recent port infection with MSSA #Type II diabetes mellitus #Anxiety Consultations [address] [address] Palliative Care Consultation Patient Name: Diana Knutson Unit Number: [id number] Date of : 1965 Patient Status: Admitted Inpatient Attending Doctor: Haven Fisher MD Date of Service Date of Service Sep 02, 2016 Date of Hospital Admission: Aug 31, 2016 at 16:45 Date of Palliative Consult: Sep 02, 2016 Requesting Provider: Jorge Yu MD Reason Palliative Care Consult: Pain Hospital Unit @time of consult: Orthopedic/Surgical Care Palliative Care Plan Palliative Care Recommendation Summary of palliative recommendations: -Symptom management (Pain/other) Pain-now controlled with ARCH[employer]NSHIP at opiate tolerant dosing of 0.4 hydromorphone with max of 2.4 mg/hr.in combo with his methadone at 15 mg Q 8 and his epidural. His epidural dose has been decreased and that precipitated the need of [employer]. Goal would be to get him off the epidural in 24- 48 hours. His methadone should stay at 15 mg Q 8 and restart his "PRN" HM oral dosing or 4-8 mg when needed and in transition off his [employer]. He will need to start tapering the HM as his post op pain regresses. I reviewed trial when home of cutting dose in 1/2 or stretching interval by 1-2 hours. I suggest follow up appt to review how pain is doing and to set up a schedule to taper his opiates over time. Anxiety-this has been an issue in the hospital more than at home. That being said he has been on lorazepam 0.5- 1 mg TID at home. Sertraline was at 100 mg Q day but seems to have been stopped --would like to continue this for another few months -then try tapering off. Insomnia-tied to his anxiety- he prefers alprazolam at HS. Nausea--an issue with last hosp-now not. MSSA bacteremia-last hospitalization. Port is out and he has been on antibiotics for nearly 2 weeks.He is scheduled for a MANE tomorrow to define if he is close to done with antibiotics. Goal would be to get him off of his benzodiazepams over the next few months and to get him on a fraction of his pain meds. Dr Salvador has been willing to manage these which helps the pt with driving distance. -DPOA/Advanced Directives/POLST--full code, Sherly- is defined as DPOAHC -Family/emotional support-Sherly -Spiritual support-he is not particularly interested Additional Medical Diagnoses with primary management by Hospitalist team include : obesity DM2 Hx MSSA bacteremia Post op management of radical cystoprostatectomy and ileostomy Problems: End of Life Preferences FULL CODE Disposition expects to go home Resuscitation Status Resuscitation Status: CPR: Attempt Resuscitation POLST Updates/Changes POLST Discussed with: Patient POLST Review Outcome: No Change . Pain: Moderate Symptom management: Pain HPI Pt History History of Present Illness Palliative Care consultation for pain management Urologist: Dr. Fisher; PCP Dr. Brown and NINO Pham. Oncologist Dr. Phipps 51 yo with hx of large aggressive bladder tumor that has now been treated with attempted TUBR then chemotx and now radical cystoprostatectomy and lymph node resection. Pain has been an issue from the start and he has had significant opiate tolerance. He has had problems with anxiety around his dx and pain management and has been on regular dosing of lorazepam. His outpt meds have included methadone 15 mg Q 8 and hydromorphone 8 mg Q 4-- requested to be for breakthrough but turned into just maintenance. He has had adequate control with this and the maintenance of a thakkar-any amt of retention cause increase in pain. His initial course was complicated by massive bleeding requiring transfusion, embolization of iliac artery, cardiac arrest and short intubation. He had a port placed but that became infected with MSSA and was removed a few weeks ago and he has been on IV ancef. At baseline he has obesity, HTN, chronic stasis and occ dermatitis related to this. Past Medical History Significant PMH Noted: PMHx Past Medical History Recent admission August 19 with: Acute blood loss anemia due to hematuria due to his papillary urothelial carcinoma Port infection with MSSA resulting in removal of port and now on outpatient IV Ancef therapy Possible healthcare associated pneumonia Nausea and vomiting with anorexia Elevated alkaline phosphatase Hyponatremia Elevated troponin felt to be demand ischemia Other past medical history according to the August 19 history and physical: Acute respiratory failure requiring intubation secondary to hemorrhagic shock Cardiac arrest (her near cardiac arrest) High-grade papillary urothelial carcinoma with severe hematuria Acute blood loss anemia requiring 15 units packed red blood cells plus FFP plus cryoprecipitate Diabetes mellitus type II Hypothyroidism Hyperlipidemia Bedside Blood Glucose: 136 Surgical History Left shoulder arthroscopy Transurethral resection of bladder tumor May 2016 Home Medications According to Dr. Cameron he is currently on Ancef 2 g IV every 8 hours According to his discharge summary he is also on following: Furosemide 40 mg daily Determir insulin 65 units daily Levothyroxine 50 g daily Methadone 15 mg every 8 hours Olanzapine 5 mg daily Oxybutynin 5 mg 3 times a day Potassium chloride 20 mEq daily Sertraline 100 mg daily Alprazolam, 1 mg bedtime when necessary anxiety Dronabinol 5 mg 3 times a day when necessary bowel movement hydromorphone 8 mg every 3 hours when necessary pain Lorazepam 0.5 mg 3 times a day when necessary anxiety Metoclopramide 10 mg by mouth every 6 hours when necessary nausea or vomiting life long nonsmoker no significant ETOH intake-luis antonio since dx. Social History Occupation: -most recently not working Family Members Issues: son lives near him Social Support: son and many friends Living Situation: lives with his Spiritual Support Spiritual Support Not very important for them-their son is involved in a sikh Responsive Patient Symptoms Pain (current): Mild Pain (minimum): Moderate Pain (maximium): Severe *Requires 72 Hour Followup Nausea: Moderate Depression: Mild Anxiety: Moderate Anorexia: Mild Shortness of Breath: Mild Constipation post op-- some BM, passing gas Palliative Performance Scale PPS Patient Status: Current PPS Ambulation: Reduced (walks with walker) PPS Activity: Unable to do any work PPS Self-Care: Full Self Care PPS Intake: Normal or reduced PPS Conscious Level: Full Performance Scale: 80% Allergy Allergies Reviewed: Yes (mental fog with low dose fentanyl patch, some myoclonus) Medications Current Medications: Current Medications Sodium Chloride 10 ml PARKER IVFLUSH Last administered on 09/02/16 08:36; Admin Dose 10 ML; Start 08/31/16 at 16:30 Cefazolin Sodium/ Dextrose 2 gm Q8H IV; Start 09/01/16 at 00:30; Stop 09/01/16 at 00:30; Status DC Insulin Human Lispro WMHS SUBQ Last administered on 08/31/16 20:33; Admin Dose 2 UNIT; Start 08/31/16 at 17:30 Hydromorphone HCl 0.5-1 mg Q1H PRN IVPUSH Last administered on 09/01/16 18:37 ; Admin Dose 1 MG; Start 08/31/16 at 17:15; Stop 09/01/16 at 18:58; Status DC Methadone HCl 15 mg Q8 PO Last administered on 09/02/16 08:37; Admin Dose 15 MG ; Start 09/01/16 at 00:30 Cefazolin Sodium/ Dextrose 2 gm Q8H IV; Start 09/01/16 at 17:30; Stop 09/01/16 at 17:30; Status DC Lorazepam 0.5 mg Q4H PRN IVPUSH Last administered on 09/02/16 15:45; Admin Dose 0.5 MG; Start 08/31/16 at 17:25 Cefazolin Sodium/ Dextrose 2 gm 2 gm Q8H IV Last administered on 09/02/16 11:48 ; Admin Dose 2 GM; Start 08/31/16 at 19:30 Sodium Chloride 250 ml @ 10 mls/hr Q24H IV Last administered on 08/31/16 23:40 ; Admin Dose 10 MLS/HR; Start 08/31/16 at 23:40; Stop 09/03/16 at 01:39 Fentanyl/ Bupivacaine HCl/ Sodium Chloride 100 ml @ 6 mls/hr Q10H IV Last administered on 09/02/16 09:54; Admin Dose 6 MLS/HR; Start 09/01/16 at 15:00 Heparin Sodium (Porcine) 5000 unit 5,000 unit Q8 SUBQ Last administered on 08:37; Admin Dose 5,000 UNIT; Start 09/01/16 at 16:30 Dextrose/Water 500 ml @ 25 mls/hr Q20H IV; Start 09/01/16 at 19:00 Hydromorphone/ Sodium Chloride Per Protocol PRN PRN IV Last administered on 19:36; Admin Dose 6 MG; Start 09/01/16 at 19:00; Stop 09/02/16 at 08:00 ; Status DC Naloxone HCl 0.04 mg Q1MIN PRN IVPUSH; Start 09/01/16 at 19:00 Hydromorphone HCl 0.5 mg Q1H PRN IVPUSH; Start 09/01/16 at 19:00; Stop at 08:00; Status DC Diphenhydramine HCl 12.5 mg Q4H PRN IVPUSH; Start 09/01/16 at 19:00 Hydromorphone HCl 0.5-1 Q1H PRN IVPUSH; Start 09/02/16 at 07:55 Hydromorphone/ Sodium Chloride Per Protocol, pls ... PRN PRN IV Last administered on 09/02/16 09:10; Admin Dose 6 MG; Start 09/02/16 at 07:55 Sodium Chloride 1,000 ml @ 100 mls/hr Q10H IV; Start 09/02/16 at 15:12 Scheduled Cefazolin Sodium (Cefazolin IV) 1 Gm Vial 6 GM IV Q24H Furosemide (Furosemide) 40 Mg Tablet 40 MG PO DAILY Insulin Detemir (Levemir Flextouch) 100 Unit/1 Ml Insuln.pen 65 UNIT SQ DAILY Insulin Lispro (Humalog Kwikpen) 200 Unit/Ml (3 Ml) Insuln.pen 20 UNIT SQ TIDWM Levothyroxine (Levothyroxine) 50 Mcg Tablet 50 MCG PO DAILYAC Methadone (Methadone) 5 Mg Tablet 15 MG PO Q8H Olanzapine (Olanzapine) 5 Mg Tablet 5 MG PO DAILY Oxybutynin Chloride (Oxybutynin Chloride) 5 Mg Tablet 5 MG PO TID Potassium Chloride ER (Potassium Chloride ER) 20 Meq Tablet.er 20 MEQ PO DAILY TAKE WITH FOOD Sertraline HCl (Zoloft) 20 Mg/1 Ml Oral.conc 100 MG PO DAILY Scheduled PRN Alprazolam (Alprazolam) 1 Mg Tablet 1 MG PO HS PRN PRN For Anxiety Dronabinol (Marinol) 5 Mg Capsule 5 MG PO TID PRN PRN For Bowel Movement Hydromorphone (Hydromorphone) 8 Mg Tablet 8 MG PO Q3H PRN PRN Pain Lorazepam (Lorazepam) 0.5 Mg Tablet 0.5 MG PO TID PRN PRN For Anxiety or Agitation Metoclopramide Inj (Metoclopramide Inj) 5 Mg/1 Ml Vial 5 MG PO Q6H PRN PRN For Nausea/Vomiting Palliative Care Exam Objective Findings Exam Vital Sign - Last Date Time Temp Pulse Resp B/P Pulse Ox O2 Delivery O2 Flow Rate FiO2 09/02/16 14:01 36.8 89 18 109/70 95 OxyMask 2.50 Intake and Output 09/01/16 09/01/16 09/02/16 Cumulative From/Thru 15:00 23:00 07:00 08/27/16 16:32 - 09/02/16 06:02 Intake Total 1086 ml 836 ml 40619 ml Output Total 2400 ml 1755 ml 6335 ml Balance -1314 ml -919 ml 6250 ml Intake Oral 0 ml 0 ml 0 ml IV Total 1086 ml 836 ml 20097 ml Autotransfusion 250 ml Packed Cells 1085 ml Output Urine Total 2255 ml 1710 ml 4725 ml Drainage Total 145 ml 45 ml 610 ml Estimated Blood Loss 1000 ml # Bowel Movements 1 Objective obese, alert but mildly sedated General: Alert/Oriented x3 HEENT: PERRLA, EOMI, Scleral Anicteric, Mucous Membr Moist/[place] (sipping clear liquids) Lungs: Clear to Auscultation Abdomen: Soft Neuro: Cranial Nerve 3-12 Intact, Other (was walking with walker due to weakness and thakkar) Extremities: Edema (2+) Skin: Other (chronic stasis dermatitis with covered wounds ant-tibs) Lab/Diagnostics Lab and Imaging results reviewed in detail in EMR. Patient/Family Conference Patient/Family Conference Members Present Family Members Present patient Medical Team Members Present? [facility] Discussion/Goals of Care Discussion FAMILY UNDERSTANDING OF DISEASE: Hopeful that this is definitive surgery. He is overwhelmed with fatigue post op that surprises him. Appetite good. Pain management has required high dose meds. He is aware this will require a taper as out pt copies to Time spent Total time 50 minutes; >50% face to face with patient and/or family, providing counselling regarding plans and recommendations, and in care coordination with his/her medical teams. I also spent an additional [ ] minutes counseling for advanced care planning with the patient/the patients family/the surrogate decision maker. copies to: Haven Fisher MD; Pat Phipps MD; Fausto Salvador MD, Deborah A MD [address] [address] Medical Consultation Patient Name: Diana Knutson Unit Number: [id number] Date of : 1965 Patient Status: Admitted Inpatient Attending Doctor: Haven Fisher MD Adult Patient Data Subjective Date of Service: Aug 31, 2016 Primary Physician: Admitting Physician: Primary Care Physician: Fausto Salvador MD Attending Physician: Haven Fisher MD Chief Complaint: Chief Complaint: co-manage for medical issues in post-op patient History of Present Illness: Today underwent radical cystectomy and prostatectomy and ileal loop for his bladder cancer. Review of Systems: Not obtainable Past Medical History [facility] Past Medical History Recent admission August 19- with: Acute blood loss anemia due to hematuria due to his papillary urothelial carcinoma Port infection with MSSA resulting in removal of port and now on outpatient IV Ancef therapy Possible healthcare associated pneumonia Nausea and vomiting with anorexia Elevated alkaline phosphatase Hyponatremia Elevated troponin felt to be demand ischemia Other past medical history according to the August 19 history and physical: Acute respiratory failure requiring intubation secondary to hemorrhagic shock Cardiac arrest (her near cardiac arrest) High-grade papillary urothelial carcinoma with severe hematuria Acute blood loss anemia requiring 15 units packed red blood cells plus FFP plus cryoprecipitate Diabetes mellitus type II Hypothyroidism Hyperlipidemia Bedside Blood Glucose: 136 Surgical History Left shoulder arthroscopy Transurethral resection of bladder tumor May 2016 Home Medications According to Dr. Cameron he is currently on Ancef 2 g IV every 8 hours According to his discharge summary he is also on following: Furosemide 40 mg daily Determir insulin 65 units daily Levothyroxine 50 g daily Methadone 15 mg every 8 hours Olanzapine 5 mg daily Oxybutynin 5 mg 3 times a day Potassium chloride 20 mEq daily Sertraline 100 mg daily Alprazolam, 1 mg bedtime when necessary anxiety Dronabinol 5 mg 3 times a day when necessary bowel movement hydromorphone 8 mg every 3 hours when necessary pain Lorazepam 0.5 mg 3 times a day when necessary anxiety Metoclopramide 10 mg by mouth every 6 hours when necessary nausea or vomiting Allergies: Coded Allergies: fentanyl (Verified Adverse Reaction, Intermediate, Delirium, 08/31/16) had fentanyl during his last procedure and tolerated fine. dr broderick assessed and doesnt believe it to be a true allergy. patient told him twitching with the patch. Family History Family History According to his recent history physical he denies any family history of malignancies, pulmonary disease, or heart disease Social History Hx Alcohol Use: Yes (no current use)Hx Substance Use: NoHx Tobacco Use: No Smoking Status: Never Smoker Medical Exam Exam Vital Signs Vital Sign - Last Date Time Temp Pulse Resp B/P Pulse Ox O2 Delivery O2 Flow Rate FiO2 08/31/16 16:15 93 10 120/62 100 OxyMask 8 08/31/16 16:05 36.5 Additional Information: Currently in the PACU and still sedated, does arouse to voice and answers simple questions but quickly falls back asleep Skin: quite pale HEENT: Unremarkable Neck: Thick but no apparent JVD and carotids 2+ Heart: Regular, distant, no murmurs heard Lungs: Upper airway noise, clear anteriorly and laterally although decreased breath sounds Abdomen: Soft, seems nontender, has colostomy bag and drainage tube in place Lower extremities: Feet appear puffy but just trace pedal edema Neuro: Able to squeeze with left hand, right upper extremity being held a nurse with pressure applied for recently removed underlying, currently not able to raise legs off the bed but still has epidural Lab and Diagnostics Result Diagram: 08/31/16 1252 08/31/16 0644 Assessment & Plan Assessment & Plan Assessment # s/p radical cystectomy and prostatectomy and ileal loop today for his bladder cancer -- as per urology # acute blood loss anemia, post op Hgb 6.6 and has just finished transfusion 2 units pRBC per urology -- assume urology will continue to manage this but will check orders later today # recent port infection with MSSA earlier this month (port removed) -- as per Dr Cameron continue Ancef 2 gm IV q 8 hr -- notified Dr Cameron of his admission -- as per Dr Cameron the patient did not yet get MANE done (had been planned as outpt) so will need that done during this admission (not yet ordered,wait until stable post op) # Poor pre-operative nutritional status -- will probably be able to resume oral intake tomorrow per urology -- remote advisor consult, possible supplements # Type II diabetes mellitus -- Glucose 73 this morning -- Usual insulin is detemir 65 units daily, will hold for now -- Start high dose lispro sliding scale # Chronic pain medication (as outpatient is on scheduled methadone dose as needed oral Dilaudid) -- We will use as needed IV Dilaudid and resume oral methadone as soon as possible -- Is still on epidural but may need additional narcotics if signs of withdrawal # Hypothyroidism -- Resume usual medication when able # Anxiety (unclear if he also has a history of depression) -- Resume sertraline when able -- IV lorazepam when necessary until he can resume his oral as needed doses of lorazepam and alprazolam Problems: Keshia Silva MD Aug 31, 2016 16:39 Procedures Cardiac Echo Impression Echocardiogram Report: Niles Rubio on 09/03/2016 06:10 Interpretation Summary No findings that would suggest endocarditis. Procedure: Informed consent for Transesophageal Echocardiogram, and use of a contrast agent as needed, was obtained prior to the procedure. The patient was brought to the [facility] in a fasting state. An intravenous line was placed. A topical anesthetic agent was used for oropharangeal anesthesia. A bite block was inserted. Sedation was managed by anesthesiologist; see anesthesiology notes for details. A 2D transesophageal echocardiogram with spectral and color flow Doppler was performed. A multifrequency, multiplane transesopheageal echocardiographic endoscope was inserted and manipulated in the standard fashion to achieve multiplane views. The usual views were obtained; basal, mid-esophageal, transgastric and aortic views. The patient's vital signs, including blood pressure, heart rate, pulse oximetry and cardiac rhythm were monitored throughout the procedure and remained stable. The patient tolerated the procedure well without evidence of orophangeal or esophageal trauma. There is no prior echocardiogram noted for this patient. The patient was in normal sinus rhythm during the exam. There were no complications. Left Ventricle: The left ventricle is normal in size, wall thickness, and systolic function without any focal wall motion abnormalities. The ejection fraction is estimated to be 55-60%. Right Ventricle: The right ventricle is normal in size and function. Atria: No thrombus is detected in the left atrial appendage. No left atrial mass or thrombus visualized. Mitral Valve: The mitral valve is normal in structure and function. There is no vegetation seen on the mitral valve. Aortic Valve: The aortic valve is trileaflet. The aortic valve is mildly calcified. There is no aortic valvular vegetation. Tricuspid Valve: The tricuspid valve is normal in structure and function. There is no tricuspid valve vegetation. Pulmonic Valve: The pulmonic valve is normal in structure and function. There is no vegetation on the pulmonic valve. Great Vessels: The aortic root is normal size. Pericardium/ Pleura: There is no pericardial effusion. Reading Physician:[place] [address] OPERATIVE REPORT PATIENT: DIANA KNUTSON : 1965 MR#: [id number] ADMIT: 08/31/2016 JOB ID: [id number] DATE OF SURGERY: 08/31/2016 PREOPERATIVE DIAGNOSIS(ES): Bladder cancer. POSTOPERATIVE DIAGNOSIS(ES): Bladder cancer. PROCEDURE PERFORMED: 1. Radical cystoprostatectomy. 2. Extended pelvic lymph node dissection. 3. Ileal conduit urinary diversion. SURGEON: Haven Fisher MD LOG HAULER: MD Paulina High PA-C Their expert technical assistance was required to aid dissection and creation of the conduit. FINDINGS: Friable posterior bladder wall adjacent to the rectum. ANESTHESIA: 1. General endotracheal. 2. Epidural. ESTIMATED BLOOD LOSS: 1 L. DRAINS: 1. Thakkar catheter via penile urethra acting as a pelvic drain. 2. 10 flat ANURAG drain. 3. Bilateral ureteral stents. SPECIMENS: 1. Radical cystoprostatectomy specimen. 2. Pelvic lymph nodes (labeled as right and left: common iliac, external iliac, internal iliac, and obturator lymph nodes). 3. Rectal serosa. 4. Rectal nodule. COMPLICATIONS: None. CONDITION: Stable. INDICATION FOR PROCEDURE: The patient is a 51-year-old gentleman with advanced bladder cancer. He is status post chemotherapy. He now presents for the aforementioned procedure. DESCRIPTION OF PROCEDURE: After informed consent was obtained, the patient was taken to the operating room. A time-out was performed identifying correct patient, surgical site, and procedure. An epidural was placed by the anesthesiologist. He was placed in supine position. All pressure points were identified and appropriately padded. He was placed under general endotracheal anesthesia. His existing Thakkar catheter had been removed. His genitals and abdomen were then prepped and draped in the usual sterile fashion. An 18-[place] Thakkar catheter was then placed into the patient's bladder. A midline infraumbilical incision was made from just inferior of the umbilicus to the pubic symphysis. The skin was incised with a 10 blade. Bovie electrocautery was used to incise the subcutaneous tissues and fascia. The Bookwalter was placed over the patient, with care being taken to not directly rest the device on the patient. A peritoneotomy was made and posterior to the umbilicus, the urachus was grasped with two Kochers. A 2-0 silk tie was placed on the umbilical side, the urachus was incised, and the Esperanza released. The remaining Esperanza on the bladder was used for retraction. The peritoneal attachments of the bladder laterally were taken down with a LigaSure device. This was taken down to the pelvic brim over the external iliacs. Both ureters were identified and a right angle was used to dissect the ureters and tag them with vessel loops. The left ureter was then traced down to the ureterovesical junction. A right angle was placed around it and the ureter incised. The ureter at the ureterovesical junction was then ligated with an 0 silk tie. A distal margin from the left ureter was incised and passed off the table to pathology for frozen section. The left ureter at the 12 o'clock position was tagged with a 3-0 silk and dissection proceeded proximally to free the ureter away from its attachments Next, attention was then turned to tracing the right ureter down to the ureterovesical junction. Bovie electrocautery was used transversely to free the peritoneal attachments between the ureterovesical junctions. The right ureter was then traced to its entry into the bladder and a right angle was placed around it and it was sharply incised. An 0 silk tie was placed around the ureterovesical junction. A distal margin was incised from the right ureter and passed off for frozen section. Both ureteral margins returned as negative for malignancy. The right ureter was also tagged with a 3-0 silk. The right ureter was then also freed from its attachments proximally. Attention was turned to freeing the posterior bladder and prostate off of the rectum. Blunt dissection was performed after the peritoneal attachments had been incised with Bovie electrocautery. At the bladder base near the junction with the prostate, the bladder was found to be quite friable and there was entry into the bladder because it was necrotic. The pedicles were then taken down with the LigaSure device. This proceeded distally along the superior pedicles to the bladder as well as the prostatic pedicles. Next, the endopelvic fascia was incised with Bovie electrocautery. A Allison clamp was applied to the dorsal venous complex x2 with 0 Vicryl ties x2. This was incised with Bovie electrocautery. The dorsal venous vein complex bleeding was then treated with a 2-0 Vicryl x2. There was excellent hemostasis at this point. The anterior urethral plate was then incised and the catheter was cut at its hub externally and then brought through into the pelvis to help retract the prostate cephalad. The posterior urethral plate was then incised, freeing the specimen; the prostate was then removed along with the bladder and passed off the table as a radical prostatectomy specimen. The point of contact with the bladder to the rectum was examined. There appeared to be a nodule along the serosa of the rectum. This was removed and passed off the table as rectal nodule. There was some adjacent serosa of the rectum that appeared somewhat suspicious for advancement of malignancy versus desmoplastic reaction, so this too was taken off with Bovie electrocautery and sent off to the pathologist as rectal serosa. There was some ooze along the rectal wall and this was treated with Bovie electrocautery as well as FloSeal and Surgicel. . Attention was then turned to the lymph node dissection. An extended pelvic lymph node dissection was performed bilaterally of the common iliacs, external iliacs, internal iliacs and obturator nodes. The dissection was aided with a right angle and Bovie electrocautery. The obturator nerves were seen bilaterally and care was taken to leave them undisturbed. The lymph node packets were passed off the table as aforementioned. Next, attention was then turned to the ileal conduit. The ileocecal junction was identified and 20 cm proximal to it, a 12 cm limb of ileum was tagged with 3-0 silk on the antimesenteric side of the serosa. Bovie was used to score adjacent to the ileum and a ASHKAN-60 was used at the proximal and distal aspects of the limb and dropped inferiorly. Attention was then turned to the reanastomosis of the ileum. They were brought side by side and 3-0 silks on the antimesenteric side were used to bring the limbs together. Keila's were used to take a snippet of serosa and mucosa large enough to accommodate the ASHKAN stapler again, which was inserted on the antimesenteric side. It was then fired across. Three Allis clamps were used at the butt end to align the ileum, and a TA-60 stapler was used for the anastomosis. Then, 3-0 silks in a Lembert fashion were used to bury the staple line. Another 3-0 silk at the vertex of the anastomosis was used on the serosal edge. The mesenteric window was closed with 3-0 silk in interrupted fashion, with care being taken to avoid any blood vessels. The ileal conduit limb at the distal aspect was then incised with Bovie electrocautery. The conduit was irrigated until it was clean of its contents. The left ureter was brought through the sigmoid mesentery just anterior to the sacral promontory. Abbasi scissors were used at the 12 o'clock position to spatulate the ureters. It was seen that with no tension, the ureters fit nicely on opposing ends of the butt of the conduit. Then, 4-0 Monocryl at the apices of the spatulated aspect of the left ureter were brought to the enterotomy made in the conduit. This aligned nicely and the stent was fed up to the ureter until just gentle resistance was met. The stent was then brought out through the distal end of the conduit. The 4-0 Monocryl was used to sew the ureter to the conduit. An asepto was used to test the water tightness of the seal, and it was watertight. The same proceeded for the right ureter. The patient had been previously marked by the stomal therapist. Esperanza was used to grasp the skin in the right upper quadrant and a 10 blade was used to incise the skin. Bovie electrocautery was used to incise the fatty tissue down to the fascia which was incised in a cruciate form and allowed generously for two fingers to be admitted through it. A Touchet was used to guide the conduit out through the skin. The stoma was made with 2-0 Vicryl at the 12, 3, 6, and 9 o'clock positions. It was matured also with 2-0 Vicryl. A 10 flat Sylvester-Montero drain was brought into proximity of the ureteroenteric anastomoses. The conduit was verified as not on any tension. The laps were then removed from the patient's body and the Bookwalter as well. The fascia was closed with looped 0 PDS at the inferior and superior aspects of the incision and every 3rd stitch was accompanied by 0-Vicryl as an internal retention. The wound was copiously irrigated with water. Remington's and fatty tissue was closed with 3-0 Vicryl in interrupted fashion. The skin was closed with hong and dressed with Vaseline gauze, Telfa, and Tegaderm. The drain was dressed as well and a urostomy appliance was placed over the ileal conduit diversion. All sponge, needle, and instrument counts were correct at the end of the procedure. The patient appeared to tolerate the procedure well without any apparent complications. He was reversed from general anesthesia and taken to the PACU in good and stable condition. Haven Fisher MD 08/31/16 1933 Brief History Palliative Care consultation for pain management Urologist: Dr. Fisher; PCP Dr. Brown and NINO Pham. Oncologist Dr. Phipps 51 yo with hx of large aggressive bladder tumor that has now been treated with attempted TUBR then chemotx and now radical cystoprostatectomy and lymph node resection. Pain has been an issue from the start and he has had significant opiate tolerance. He has had problems with anxiety around his dx and pain management and has been on regular dosing of lorazepam. His outpt meds have included methadone 15 mg Q 8 and hydromorphone 8 mg Q 4-- requested to be for breakthrough but turned into just maintenance. He has had adequate control with this and the maintenance of a thakkar-any amt of retention cause increase in pain. His initial course was complicated by massive bleeding requiring transfusion, embolization of iliac artery, cardiac arrest and short intubation. He had a port placed but that became infected with MSSA and was removed a few weeks ago and he has been on IV ancef. At baseline he has obesity, HTN, chronic stasis and occ dermatitis related to this. Hospital Course 51-year-old male admitted 08/31, s/p radical cystectomy and prostatectomy and ileal loop 09/01 for bladder cancer acute, active #Acute/chronic pain, POA, difficulty to control in post op course -pain is better controlled with q3h PO dilaudid 8mg, methadone / tid, no longer requiring IV. -appreciate palliative care for pain control on dispo #Bladder cancer- s/p radical cystectomy and prostatectomy and ileal loop 08/[address] cancer per Dr. Phillip TAVERAS, -He will f/u 09/14/16 for staple and stent removal at 2:30 PM, check in at 2:15 PM -Order home PT for increase mobility #intractable nausea, no vomiting likely developed in post-op course, probable opioid induced or severe ileus in the setting of severe hypothyroid state, CT abd earlier and KUB 09/07 didn't show SBO. -pt responded bowel regimen, symptoms improving, -zofran prn for n/v -continue aggressive bowel regimen at home. #severe hypothyroid state, POA, noted pt was off on LT4 for 8days per family, resumed 50mcg po by , -[id number] iv for 3D, switched to 100mcg qd, recheck TFT in 6wks by PCP chronic, stable,resolved #Lower extr weakness 09/01- resolved with decreased rate of epidural 09/02. Physical therapy continuing. #Acute blood loss anemia, Hgb 6.6 08/31, 8.9 09/02, 10.3 09/05, stable, s/p 2 u of RBC 08/31. The hemoglobin yesterday was 8.6. #Recent port infection with MSSA earlier this month (port removed), as per Dr Cameron continue Ancef 2 gm IV until Sep 03... Ancef discontinued 09/04, MANE completed 09/03 negative #Type II diabetes mellitus- Accuchecks, ISS,BS in target #Anxiety (unclear if he also has a history of depression) - Resume sertraline when able - IV lorazepam prn Exam Vital Signs (Last) Date Time Temp Pulse Resp B/P Pulse Ox O2 Delivery O2 Flow Rate FiO2 09/12/16 09:00 Supplement Oxygen 09/12/16 08:56 36.8 85 18 109/73 93 09/11/16 20:16 2.00 Exam Alert and oriented 3 in no apparent distress. Heart is regular rate and rhythm without murmur Lungs are clear to auscultation bilaterally Abdomen soft, vessels positive, nontender, no organomegaly. There is a right lower quadrant urostomy with a tube in place leading to a catheter bag. Extremities have no ankle edema. Test 08/31/16 06:44 09/02/16 11:28 09/09/16 03:30 09/11/16 12:28 Prothrombin Time 10.0sec (8.1-12.5) Prothromb Time International Ratio 0.94ratio Activated Partial Thromboplast Time 26.6sec (22.8-33.0) Body Fluid Creatinine 0.52mg/dL White Blood Count 8.7th/mm3 (3.8-10.1) Red Blood Count 2.88mil/mm3 (4.40-5.80) Mean Corpuscular Volume 91.0fL (81-100) Mean Corpuscular Hemoglobin 29.2pg (27.0-35.0) Mean Corpuscular Hemoglobin Concent 32.1% (32.0-37.0) Red Cell Distribution Width 15.9% (12.3-15.4) Platelet Count 214bil/L (150-400) Neutrophils (%) (Auto) 69.3% (40-74) Lymphocytes (%) (Auto) 15.1% (14-46) Monocytes (%) (Auto) 8.6% (4-12) Eosinophils (%) (Auto) 5.3% (0-5) Basophils (%) (Auto) 0.6% (0-3) Sodium Level 136mEq/L (134-144) Potassium Level 4.8mEq/L (3.5-5.2) Chloride Level 100mEq/L (97-108) Carbon Dioxide Level 26mmol/L (18-29) Blood Urea Nitrogen 16mg/dL (6-24) Creatinine 0.68mg/dL (0.76-1.27) Estimat Glomerular Filtration Rate 131mL/min (>59) Glucose Level 102mg/dL (60-99) Calcium Level 8.2mg/dL (8.5-10.1) Phosphorus Level 4.5mg/dL (2.5-4.9) Magnesium Level 1.6mg/dL (1.6-2.6) Total Bilirubin 0.3mg/dL (0.0-1.2) Aspartate Amino Transf (AST/SGOT) 21U/L (0-50) Alanine Aminotransferase (ALT/SGPT) 6U/L (0-44) Alkaline Phosphatase 215U/L (25-150) Total Protein 5.9g/dL (6.4-8.4) Albumin 2.4g/dL (3.4-5.0) Thyroid Stimulating Hormone (TSH) 63.870uIU/mL (0.450-4.500) Free Thyroxine 0.58ng/dL (0.82-1.77) Hemoglobin 8.6g/dL (13.8-17.2) Hematocrit 26.7% (41.0-50.0) Discharge Medications Discharge Medications Furosemide (Furosemide) 40 Mg Tablet 40 MG PO DAILY (Reported) Insulin Detemir (Levemir Flextouch) 100 Unit/1 Ml Insuln.pen 65 UNIT SQ DAILY ( Reported) Insulin Lispro (Humalog Kwikpen) 200 Unit/Ml (3 Ml) Insuln.pen 20 UNIT SQ TIDWM (Reported) Levothyroxine (Levothyroxine) 100 Mcg Tablet 100 MCG PO DAILYAC Prescribed by: LOLA HENAO MD Methadone (Methadone) 10 Mg Tab 25 MG PO Every 8 hours Prescribed by: LOLA HENAO MD Methadone (Methadone) 5 Mg Tablet 25 MG PO Q8H Prescribed by: ERNA VILLAVICENCIO MD Olanzapine (Olanzapine) 5 Mg Tablet 5 MG PO DAILY Prescribed by: LOLA MICHAELS DO Oxybutynin Chloride (Oxybutynin Chloride) 5 Mg Tablet 5 MG PO TID Prescribed by: DORITA LOUIS DO Potassium Chloride ER (Potassium Chloride ER) 20 Meq Tablet.er 20 MEQ PO DAILY ( Reported) TAKE WITH FOOD Sertraline HCl (Zoloft) 20 Mg/1 Ml Oral.conc 100 MG PO DAILY (Reported) As needed Alprazolam (Alprazolam) 1 Mg Tablet 1 MG PO HS PRN PRN For Anxiety (Reported) Dronabinol (Marinol) 5 Mg Capsule 5 MG PO TID PRN PRN For Bowel Movement Prescribed by: LOLA MICHAELS DO Hydromorphone (Hydromorphone) 8 Mg Tablet 8 MG PO Q3H PRN PRN Pain Prescribed by: DIPESH SIMPSON MD Lorazepam (Lorazepam) 0.5 Mg Tablet 0.5 MG PO TID PRN PRN For Anxiety or Agitation (Reported) Metoclopramide Inj (Metoclopramide Inj) 5 Mg/1 Ml Vial 5 MG PO Q6H PRN PRN For Nausea/Vomiting Prescribed by: LOLA MICHAELS DO Olanzapine (Olanzapine) 2.5 Mg Tablet 2.5 MG PO Q4 PRN PRN For Nausea Prescribed by: LOLA HENAO MD Followup Plan Disposition: Referred for home health RN and PT at home. Follow-up plan 09/14/16 at 2:15 PM check in for 2:30 PM appt for staple and ureteral stent removal Discharge Diet: No restrictions Discharge Activity: No restrictions Patient Instructions Follow up with Dr. Romero, Dr. Ward and Dr. Phillip wilson, as already arranged. Time spent 40 minutes Lizzie Villavicencio MD Sep 12, 2016 10:23
[2016-09-14] MEDS ORDERED: Levothyroxine 100 mCg/5 mL Inj IV SCH (08:30)
== END 2016-09-12 12:30 | disposition home health service (06) | DRG 654 ==
LOC: SAS 05:52 → OSC 16:45
PROVIDERS: ADMIT Urology; ATTEND Urology
PROC: 0VT00ZZ Resection of Prostate, Open Approach (ICD-10-PCS; 2016-08-31)
PROC: 07TC0ZZ Resection of Pelvis Lymphatic, Open Approach (ICD-10-PCS; 2016-08-31)
PROC: 0T180ZC Bypass Bilateral Ureters to Ileocutaneous, Open Approach (ICD-10-PCS; 2016-08-31)
PROC: 0TTB0ZZ Resection of Bladder, Open Approach (ICD-10-PCS; principal; 2016-08-31 07:30)
PROC: 30233N1 Transfusion of Nonautologous Red Blood Cells into Peripheral Vein, Percutaneous Approach (ICD-10-PCS; 2016-09-01)
PROC: B24BZZ4 Ultrasonography of Heart with Aorta, Transesophageal (ICD-10-PCS; 2016-09-03)
DX: C67.4 Malignant neoplasm of posterior wall of bladder (principal); D62 Acute posthemorrhagic anemia; E11.9 Type 2 diabetes mellitus without complications; E03.9 Hypothyroidism, unspecified; E78.5 Hyperlipidemia, unspecified; F41.9 Anxiety disorder, unspecified; G89.29 Other chronic pain; Z51.5 Encounter for palliative care; Z79.4 Long term (current) use of insulin

== ENCOUNTER 2016-09-30 16:48 | Inpatient (IN) | payer OTHER ==
[~2016-09-30] VITALS: Ht 185.4 cm; Wt 112.5 kg
[~2016-09-30 16:48] MED LIST changes: +INSU200I SQ; +LEVO100T6 PO; -LEVO50TA6 PO; -Lactated Ringer's 1,000 ML IV ONE; +MTH10T PO; +OLAN2.5T20 PO
[2016-09-30 20:17] VITALS: BP 117/73; PULSE 82; RESP 18; O2SAT 95
[2016-09-30] MEDS ORDERED: HYDROmorphone 1 mg/mL Inj IVPUSH PRN (20:50)
[2016-09-30] MEDS ORDERED: Alum-Mag Hydrox-Simeth 30 mL Suspension PO PRN (21:05)
--- NOTE | 2016-09-30 22:14 | PCM.HPMED ---
Subjective Date of Service Sep 30, 2016 Primary Provider: Admitting Physician: Leon Agudelo MD Primary Care Physician: Fausto Salvador MD Attending Physician: Leon Agudelo MD Chief Complaint: Fall History of Present Illness: Alexis Knutson is a 51-year-old man with past medical history significant for high- grade bladder urothelial carcinoma status post cystectomy and prostatectomy with ileal conduit who had a protracted stay for about a month in August 2016 with complications from his surgery including intractable pain difficult to control nausea who presented to the [facility] emergency department today due to a fall and subsequent dehiscence of his surgical wound today. 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 He has never had an episode of syncope before. He did not feel any warning to his syncopal episode. He remembers looking up at the ceiling. His fall was not witnessed as . From the next room and found him on the floor with a lot of blood. She was subsequently taken to [facility] by EMS. He was evaluated with a CT of head which showed no acute intracranial process. He was evaluated with a CT of cervical spine which showed no evidence of acute trauma. The patient was transferred here due to proximity to his oncologist. Patient is complaining of severe pain in his abdomen currently. Per nursing report patient's urostomy was completely full of urine when he arrived. When it was checked less than hour later regarding filling up significantly. At [facility] emergency department his vital signs were blood pressure 108/ 52, heart rate of 91, respiratory rate of 18, O2 saturation 90% on room air, temperature 90.8 Fahrenheit. Review of Systems: A comprehensive review of systems was conducted with the patient and found to be negative except as above in the History of Present Illness. Allergies Coded Allergies: fentanyl (Verified Adverse Reaction, Intermediate, Delirium, 08/31/16) had fentanyl during his last procedure and tolerated fine. dr broderick assessed and doesnt believe it to be a true allergy. patient told him twitching with the patch. Home Medications Discharge Medications Furosemide (Furosemide) 40 Mg Tablet 40 MG PO DAILY (Reported) Insulin Detemir (Levemir Flextouch) 100 Unit/1 Ml Insuln.pen 65 UNIT SQ DAILY ( Reported) Insulin Lispro (Humalog Kwikpen) 200 Unit/Ml (3 Ml) Insuln.pen 20 UNIT SQ TIDWM (Reported) Levothyroxine (Levothyroxine) 100 Mcg Tablet 100 MCG PO DAILYAC Prescribed by: LOLA HENAO MD Methadone (Methadone) 10 Mg Tab 25 MG PO Every 8 hours Prescribed by: LOLA HENAO MD Methadone (Methadone) 5 Mg Tablet 25 MG PO Q8H Prescribed by: ERNA VILLAVICENCIO MD Olanzapine (Olanzapine) 5 Mg Tablet 5 MG PO DAILY Prescribed by: LOLA MICHAELS DO Oxybutynin Chloride (Oxybutynin Chloride) 5 Mg Tablet 5 MG PO TID Prescribed by: DORITA LOUIS DO Potassium Chloride ER (Potassium Chloride ER) 20 Meq Tablet.er 20 MEQ PO DAILY ( Reported) TAKE WITH FOOD Sertraline HCl (Zoloft) 20 Mg/1 Ml Oral.conc 100 MG PO DAILY (Reported) As needed Alprazolam (Alprazolam) 1 Mg Tablet 1 MG PO HS PRN PRN For Anxiety (Reported) Dronabinol (Marinol) 5 Mg Capsule 5 MG PO TID PRN PRN For Bowel Movement Prescribed by: LOLA MICHAELS DO Hydromorphone (Hydromorphone) 8 Mg Tablet 8 MG PO Q3H PRN PRN Pain Prescribed by: DIPESH SIMPSON MD Lorazepam (Lorazepam) 0.5 Mg Tablet 0.5 MG PO TID PRN PRN For Anxiety or Agitation (Reported) Metoclopramide Inj (Metoclopramide Inj) 5 Mg/1 Ml Vial 5 MG PO Q6H PRN PRN For Nausea/Vomiting Prescribed by: LOLA MICHAELS DO Olanzapine (Olanzapine) 2.5 Mg Tablet 2.5 MG PO Q4 PRN PRN For Nausea Prescribed by: LOLA HENAO MD [facility] High-grade papillary urothelial carcinoma as post radical cystectomy and prostatectomy and ileal conduit Intractable nausea Severe hypothyroidism Acute blood loss anemia Port infection with MSSA Type II diabetes mellitus Anxiety Surgical History Left shoulder arthroscopy Family History Patient denies any family history of malignancies, pulmonary disease, coronary disease Social History Hx Alcohol Use: Yes (no current use) Hx Substance Use: No Hx Tobacco Use: No Smoking Status: Never Smoker Exam Vital Signs Vital Sign - Last Date Time Temp Pulse Resp B/P Pulse Ox O2 Delivery O2 Flow Rate FiO2 09/30/16 20:17 36.7 82 18 117/73 95 Room Air Exam General: No acute distress, pale, chronically ill-appearing HEENT: Normocephalic, atraumatic. External ears without defect. Pupils equal, round, and reactive to light and accommodation. Anicteric sclerae, moist conjunctivae, and no lid lag. Oropharynx free of erythema and cobble stoning with moist mucosa. Neck: Supple with full range of motion. No jugular venous distension. No lymphadenopathy or thyromegaly. Cardiovascular: Regular rate and rhythm with no murmurs, rubs, or gallops appreciated Pulmonary: Clear to auscultation bilaterally with no crackles, wheezes, or rhonchi. Normal respiratory effort with no use of accessory muscles. Abdomen: Bowel tones present. Obese, Soft, exquisitely tender, dressing is clean and dry over surgical site, was able to look at wound which looks minimally dehisced however patient was in excruciating pain and even the most mild touch. Minimal blood noted on dressing. Nondistended. No hepatosplenomegaly or masses appreciated. Urostomy with clear yellow urine present Extremities: No clubbing, cyanosis, edema, or lymphadenopathy appreciated. Skin: Normal temperature, turgor, and texture; no rash, ulcers, or subcutaneous nodules appreciated. Neurological: Cranial nerves grossly intact. Normal muscle strength, tone, and bulk. Reflexes, coordination, and sensory function within normal limits. No known gait impairment. Psychiatric: Patient appears anxious and angry. Alert and oriented to person, place, and time. Lab and Diagnostics Labs CC WBC 12.8 Hemoglobin 7.4 Hematocrit 22.2 Platelets 176 Neutrophils 84.6% CMP Glucose 56 BUN 57 Creatinine 1.7 Sodium 132 Potassium 4.7 Chloride 100 Carbon dioxide 27 Magnesium 2.1 Calcium 8.1 Total protein 7.0 Albumin 1.8 Alkaline phosphatase 440 AST 70 ALT 29 Troponin I less than 0.05 X-Rays, CTs and MRIs CT head without contrast Impression: 1. No CT evidence of acute intracranial process. Dictated by: Yelena Belcher M.D. CT cervical spine without contrast Impression: 1. No CT evidence of acute trauma. 2. Mild degenerative endplate changes at C5 and C6. 3. Left posterior cervical chain lymph node, probably reactive. Correlate clinically. Dictated by: Yelena Belcher M.D. CT abdomen and pelvis without contrast Impression: 1. Multilobulated pelvic fluid collection status post colectomy. The most distal aspect of the fluid collection contains gas and appears to be in continuity with mildly prominent prostatic urethra. 2. Mild bilateral hydronephrosis and hydroureter status post ureteral diversion. Renal enlargement may be physiologic postop, though partial obstruction is not excluded. The ostomy appears to be unobstructed, although there may be stenosis at the ureteroenteric anastomosis. 3. There is mild pericolonic inflammation in the proximal sigmoid where it is adjacent to one of the pelvic fluid collection. This may be reactive or infectious colitis. 4. There is proximal colonic obstipation, likely from narcotic use. 5. Hepatosplenomegaly with hepatic morphology suggestive of cirrhosis. Spleen size has considerably increased compared to 03/24/2016 where it measured 16.9 cm in AP diameter, now 19.8 cm. 6. Paraesophageal, periceliac, periportal, periaortic, and pelvic adenopathy, worse since prior studies, potentially reactive but concerning for metastatic disease. Dictated by: Yelena Belcher M.D. Assessment & Plan Alexis Knutson is a 51-year-old man with past medical history significant for high- grade bladder urothelial carcinoma status post cystectomy and prostatectomy with ileal conduit who had a protracted stay for about a month in August 2016 with complications from his surgery including intractable pain difficult to control nausea who presented to the [facility] emergency department today due to a fall and subsequent dehiscence of his surgical wound today. Ground-level fall, present on admission, active -Etiology unclear but patient's elevated white count is concerning for a recurrent infection. -We will monitor with telemetry. Unlikely secondary to conduction abnormality or cardiac problems. -Patient has noted some dizziness in the past that has occurred spontaneously. -Unlikely due to seizure. Query about orthostatic hypotension however given the patient's severe abdominal pain that test would not be accomplishable at this time. High-grade bladder urothelial carcinoma status post colectomy and prostatectomy with ileal conduit -Urostomy care -Day team to notify patient's oncologist of his admission. Wound dehiscence secondary to fall, present on admission, active -Currently appears to be minimally dehisced. Exam was limited by patient's pain at this time. -Contact urology/general surgery tomorrow -Dilaudid when necessary for pain Acute on chronic pain, present on admission, active -Continue outpatient pain medications as recommended by palliative care -Consider consulting how to care for further pain management. Leukocytosis, present on admission, active -May be due to dehydration although patient's CT scan is concerning for multiple possible sources of infection -He did have MSSA bacteremia from his port -We will repeat CBC tomorrow. Will order procalcitonin. Order blood cultures. -Patient denies any fevers or chills. Denies any changes in his chronic status or any complaints consistent with an infection. However, given his immunosuppressed status reasonable to pursue an infectious workup. Type II diabetes mellitus -Insulin requiring -We will continue with 50% of the patient's chronic dose. Anxiety -Continue outpatient medications Hypothyroidism -Continue levothyroxine CODE STATUS: Full code Patient is admitted under inpatient status with expected length of stay greater than 2 midnights due to severity of presenting symptoms, risk of adverse event, and complexity of treatment plan. VTE Prophylaxis: Sub-Q Heparin (Unfractionated) Resuscitation Status: CPR: Attempt Resuscitation Attending Statement The patient was seen and examined together with Dr. Collado on 09/30 and I agree with the history, exam and plan as outlined in the note above. Ashlie Collado DO Sep 30, 2016 21:33 Denis Hines MD Sep 30, 2016 23:56
[2016-09-30] MEDS: HYDROmorphone 1 mg/mL Inj IVPUSH PRN (22:29)
[2016-09-30] MEDS: Ondansetron 2 mg/mL 2 mL Inj IVPUSH PRN (22:31)
[2016-09-30 22:36] LABS: BASOPHILS % (AUTO) 0.3 % (0-3); EOSINOPHILS % (AUTO) 0.8 % (0-5); MONOCYTES % (AUTO) 5.4 % (4-12); Mean Corpuscular Hemoglobin 29.1 pg (27.0-35.0); Mean Corpuscular Volume 86.8 fL (81-100); NEUTROPHILS % (AUTO) 86.3 % (40-74); Platelet Count 217 bil/L (150-400)
[2016-09-30] MEDS ORDERED: METH5TAB3 PO (22:36)
[2016-09-30] MEDS ORDERED: Glucose 40% Oral Gel 15 Gm Tube PO PRN (23:00)
[2016-10-01] VITALS (7 sets, daily range): BP systolic 108–134; BP diastolic 66–86; PULSE 86–100; RESP 15–18; O2SAT 95–99
[2016-10-01] MEDS: Heparin 5,000 Unit/mL Inj SUBQ SCH ×3 (01:12→16:54)
--- NOTE | 2016-10-01 03:01 | NUR ---
Admit/pain/wound Patient arrived on unit at 1950, transport personal expressed that patient had not received proper pain medication prior to transfer. Hospitalist made aware, quickly responding with PRN pain medication. The amount was in effective however, was not available at first to verify drugs, doses, and last dose given. As soon as med rec was updated hospitalist was paged again. Patient voiced satisfaction with the quick responses for pain medications. Pain management effective. will continue to monitor. Wound no direct observation made, however received in report that there are three points of wound dehiscence smallest on top, middle wound 2x2x2, and bottom wound 3x3x?. Moderate drainage sero-sangunious. will continue to monitor at this time.
[2016-10-01] MEDS: LORazepam 0.5 mg Tablet PO PRN ×3 (06:08→20:07)
[2016-10-01] MEDS: Ondansetron 2 mg/mL 2 mL Inj IVPUSH PRN (06:08)
[2016-10-01] MEDS: Insulin GLARgine 100 Unit/mL Syringe SUBQ SCH (07:59)
[2016-10-01] MEDS ORDERED: POTASSIUM CHLORIDE 20 MEQ PO SCH (08:30)
[2016-10-01] MEDS ORDERED: INSULIN DETEMIR 65 UNIT SQ SCH (08:30)
--- NOTE | 2016-10-01 09:00 | NUR ---
WOUND/TELE Patient is NPO for ? surgery. Patients pain level via FELDT scale is 0/10. Abdominal incision has foul odor with sanguinous output noted. Xeroform noted in the upper area and packing in the opening in the lower abdominal area. ABD dressing was changed. MD aware RE: Wound dehiscence. Urology consult is pending. Urostomy is in place. Urostomy appliance changed and attached to a Weathers bag. Patient was placed on a continuous PO2 earlier this shift and remote tele at this time. Per television cameraman patient is on sinus rhythm; HR-80's. Will continue to monitor.
[2016-10-01] MEDS: 0.9% Sodium Chloride 1,000 ML IV SCH ×2 (09:08→18:34)
[2016-10-01] MEDS: HYDROmorphone 1 mg/mL Inj IVPUSH PRN ×4 (09:42→18:11)
[2016-10-01 10:44] LABS: Mean Corpuscular Hemoglobin 29.2 pg (27.0-35.0); Mean Corpuscular Volume 86.9 fL (81-100)
[2016-10-01 10:45] LABS: BASOPHILS % (AUTO) 0.4 % (0-3); EOSINOPHILS % (AUTO) 0.7 % (0-5); MONOCYTES % (AUTO) 6.3 % (4-12); NEUTROPHILS % (AUTO) 83.6 % (40-74); Platelet Count 207 bil/L (150-400)
[2016-10-01 10:50] LABS: Bilirubin, Direct 0.3 mg/dL (0.0-0.3)
--- NOTE | 2016-10-01 11:50 | NUR ---
CRITICAL LAB + blood culture: Gram negative rods 1/ anaerobic bottle. Dr. Agudelo made aware. New orders received.
[2016-10-01] MEDS ORDERED: Piperacillin-Tazo 3.375 Gm Inj 3.375 GM in Dextrose 5% Minibag Plus 50 ML IV ONE (12:00)
--- NOTE | 2016-10-01 12:00 | PCM.PNMED ---
Subjective Date of Service Oct 01, 2016 Subjective Patient complains of abdominal pain this morning, specially lower abdomen at site of his wound dehiscence. Thinks may have had some chills overnight. His urostomy tube has been consistently draining urine since admission. Exam Vital Signs Vital Sign - Last Date Time Temp Pulse Resp B/P Pulse Ox O2 Delivery O2 Flow Rate FiO2 10/01/16 09:13 87 10/01/16 07:53 36.8 16 109/68 95 Room Air Intake and Output 09/30/16 09/30/16 10/01/16 Cumulative From/Thru 15:00 23:00 07:00 09/30/16 20:17 - 10/01/16 06:06 Intake Total 2000 ml 2000 ml Output Total 1900 ml 1900 ml Balance 100 ml 100 ml Intake Oral 1200 ml 1200 ml IV Total 800 ml 800 ml Output Urine Total 1900 ml 1900 ml # Bowel Movements 0 0 Exam General: No acute distress, pale, chronically ill-appearing HEENT: Normocephalic, atraumatic. External ears without defect. Pupils equal, round, and reactive to light and accommodation. Anicteric sclerae, moist conjunctivae, and no lid lag. Oropharynx free of erythema and cobble stoning with moist mucosa. Neck: Supple with full range of motion. No jugular venous distension. No lymphadenopathy or thyromegaly. Cardiovascular: Regular rate and rhythm with no murmurs, rubs, or gallops appreciated Pulmonary: Clear to auscultation bilaterally with no crackles, wheezes, or rhonchi. Normal respiratory effort with no use of accessory muscles. Abdomen: Bowel tones present. Obese, Soft, exquisitely tender, dressing is clean and dry over surgical site, was able to look at wound which looks minimally dehisced however patient was in excruciating pain and even the most mild touch. Minimal blood noted on dressing. Nondistended. No hepatosplenomegaly or masses appreciated. Urostomy with clear yellow urine present Extremities: No clubbing, cyanosis, edema, or lymphadenopathy appreciated. Skin: Normal temperature, turgor, and texture; no rash, ulcers, or subcutaneous nodules appreciated. Neurological: Cranial nerves grossly intact. Normal muscle strength, tone, and bulk. Reflexes, coordination, and sensory function within normal limits. No known gait impairment. Psychiatric: Patient appears anxious and angry. Alert and oriented to person, place, and time. IVs and Medications Medications Reviewed: Medications were reviewed in detail Lab and Diagnostics Result Diagram: 10/01/16 0954 10/01/16 0954 Microbiology CHANO CULTURE BLOOD Preliminary 10/01/16-1151 Organism 1 POSITIVE BLOOD CULTURE GRAM STAIN RESULT GRAM NEGATIVE RODS BC BOTTLE Isolated from Anaerobic Bottle of Set Drawn DATE CALLED: 10/01/16 TIME CALLED: 1149 CALLED BY: LENA FLOOR/DOCTOR: SOULEYMANE Rod BC READ BACK Y TYPE OF DRAW PERIPHERAL DRAW TIME OF POSITIVITY 1118 Microbiology 09/30/16 Blood Culture, Received Pending X-Rays, CTs and MRIs CT head without contrast Impression: 1. No CT evidence of acute intracranial process. Dictated by: Yelena Belcher M.D. CT cervical spine without contrast Impression: 1. No CT evidence of acute trauma. 2. Mild degenerative endplate changes at C5 and C6. 3. Left posterior cervical chain lymph node, probably reactive. Correlate clinically. Dictated by: Yelena Belcher M.D. CT abdomen and pelvis without contrast Impression: 1. Multilobulated pelvic fluid collection status post colectomy. The most distal aspect of the fluid collection contains gas and appears to be in continuity with mildly prominent prostatic urethra. 2. Mild bilateral hydronephrosis and hydroureter status post ureteral diversion. Renal enlargement may be physiologic postop, though partial obstruction is not excluded. The ostomy appears to be unobstructed, although there may be stenosis at the ureteroenteric anastomosis. 3. There is mild pericolonic inflammation in the proximal sigmoid where it is adjacent to one of the pelvic fluid collection. This may be reactive or infectious colitis. 4. There is proximal colonic obstipation, likely from narcotic use. 5. Hepatosplenomegaly with hepatic morphology suggestive of cirrhosis. Spleen size has considerably increased compared to 03/24/2016 where it measured 16.9 cm in AP diameter, now 19.8 cm. 6. Paraesophageal, periceliac, periportal, periaortic, and pelvic adenopathy, worse since prior studies, potentially reactive but concerning for metastatic disease. Dictated by: Yelena Belcher M.D. Assessment & Plan Alexis Knutson is a 51-year-old man with past medical history significant for high- grade bladder urothelial carcinoma status post cystectomy and prostatectomy with ileal conduit who had a protracted stay for about a month in August 2016 with complications from his surgery including intractable pain difficult to control nausea who presented to the [facility] emergency department today due to a fall and subsequent dehiscence of his surgical wound today and was then tx to [facility] after CT Abd finding of Pelvic Fluid collection increase bilateral hydronephrosis suggesting possible partial obstruction, and obstipation. #Sepsis, present on admission, active- SIRS- criteria fever at [facility] and white count of 14 on admit. Blood cultures from 09/30 have come back positive for gram-negative rods.Source is likely pelvic fluid collection. CT suggests possible Colitis. Consider Port infection, hx of MSSA from port. -CT Abd finding of Multilobulated Pelvic Fluid collection, increase bilateral hydronephrosis suggesting possible partial uretral obstruction, and Colonic obstipation. -Currently afebrile, WBC 14.3-13.5. Lactic acid 0.6. Procalictonin- 1.18. Started patient on Zosyn on morning of 10/01. -Pt started on IV fluids, monitor BP. -Given wound dehiscence and pelvic fluid collection patient may need to have this drained. -Consulted Urology, Dr. Brendon Mendoza-appreciate recommendations -Discussed case with ID, Dr. Cameron, he will see pt today. Agrees with initial antibiotic choice of Zosyn given gram-negative bacteremia. We will follow-up blood cultures for speciation and susceptibility. #High-grade bladder urothelial carcinoma status post colectomy and prostatectomy with ileal conduit, w/ wound dehiscence. -Urostomy care. Increased Adenopathy, may be reactive. -Patient's urologist Dr. Temple not in office. Have consulted Urology, Dr. Brendon Mendoza. #Ground-level fall, present on admission, active -Etiology unclear but patient's elevated white count is concerning for a recurrent infection. -We will monitor with telemetry. Unlikely secondary to conduction abnormality or cardiac problems. -Patient has noted some dizziness in the past that has occurred spontaneously. -Unlikely due to seizure. Query about orthostatic hypotension however given the patient's severe abdominal pain that test would not be accomplishable at this time. #Wound dehiscence secondary to fall, present on admission, active -Currently appears to be minimally dehisced. Exam was limited by patient's pain at this time. -Contacted urology/general surgery -Dilaudid when necessary for pain #Proximal Colonic Obstipation-present on admission, active -pt started on bowel regimen, consider Enema if no BM. #Acute on chronic pain, present on admission, active -Continue outpatient pain medications as recommended by palliative care -Consider consulting how to care for further pain management. Chronic Medical Issues- #Type II diabetes mellitus -Insulin requiring -We will continue with 50% of the patient's chronic dose. #Anxiety -Continue outpatient medications #Hypothyroidism -Continue levothyroxine CODE STATUS: Full code Patient is admitted under inpatient status with expected length of stay greater than 2 midnights due to severity of presenting symptoms, risk of adverse event, and complexity of treatment plan. VTE Prophylaxis: Sub-Q Heparin (Unfractionated) VTE Mechanical Devices: Intermittant Pneumatic CD Resuscitation Status: CPR: Attempt Resuscitation Leon Agudelo MD Oct 01, 2016 12:00
--- NOTE | 2016-10-01 12:53 | NUR ---
Palliative care note D/A: Pt well known to palliative care. He is admitted after a possible syncopal episode with resulted in a fall and wound dehiscence. Pt was initially taken to [place] for care, which is the hospital closest to his home. He was later transferred to [facility] as this is where he has received the bulk of his care. RN notes that the wound smells odorous. Pt spouse and RN notes indicate a period of time without pain medications for this pt. Note that pt is followed by outpatient palliative care. Case discussed in [facility] rounds this am. Dr. Agudelo kindly agrees to a palliative care consult for assistance in pain management as well as support. P: Palliative care to follow. Leticia HENSON, CCM
--- NOTE | 2016-10-01 12:56 | NUR ---
UROLOGY CONSULT Dr. Mendoza is requesting CT scan from [facility] to be sent to the PACS system for further evaluation. [facility] made aware to contact [facility] and page Dr. Mendoza when this is available.
--- NOTE | 2016-10-01 15:09 | PCM.CONPAL ---
Date of Service Oct 01, 2016 Date of Hospital Admission: Sep 30, 2016 at 19:52 Date of Palliative Consult: Oct 01, 2016 Requesting Provider: Leon Agudelo MD Reason Palliative Care Consult: Pain, Other Symptoms (syncope) Hospital Unit @time of consult: Orthopedic/Surgical Care Palliative Care Recommendation Summary of palliative recommendations: -Symptom management (Pain/other) Syncope- ECG checked and QT 44-well within normal range. Still concerned for possible dysrhythmia.Consider 24 hour monitor check orthostatic BP/P when stable enough to do that. Pain-has had significant narcotic requirements. Will try to drop his methadone down to 15 mg TID with HM 8 mg PO or 1-2 IV Q 3 PRN. His gabapentin was d/brenda due to edema- unclear if related Anxiety--tends to be bigger issue when in hospital Wound dehiscence-defer to surg/urology. Chronic pain syndrome. -DPOA/Advanced Directives/POLST-FULL CODE -Family/emotional support- superb support from his Sherly - Problems: End of Life Preferences full code Goals of Care Hopes for full recovery Resuscitation Status Resuscitation Status: CPR: Attempt Resuscitation . Pain: Moderate Symptom management: Nausea, Depression, Anxiety, Constipation Pt History History of Present Illness PALLIATIVE CARE CONSULTATION. requestiong- Dr. Agudelo reason- pain management, syncope 51 yo with hx of large hemorrhagic bladder CA now s/p chemo and surgical excision and cystoprostatectomy who was making gradual progress at home when he was up tues grisel middle of night in kitchen to get sandwich and had a syncopal spell. He states he fell backward. No prodrome or forewarning. He has lost most of his edema. He has had no palp. He has mild orthostatic LH but he has felt that is getting better.He has had significant pain issue since dx and required high dose narcotic for control. At the time of his surg and postop he needed increase in his methadone to 25 mg TID with hydromorphone prn. His dosing was decreased to 20 mg TID approx 2 weeks ago. His manages his meds and states he had required an increase in his hydromorphone but had been doing well. He had been walking in the house still feeling weak but no fever or chills until after the fall.At the time of his fall he had an opening up of his incision. He was seen at [facility], imaged and evaluated and then transferred to [facility]. He had not had any methadone for about 20+ hours before getting his meds here. He had not had much appetite until just recently. 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 [place] Other past medical history according to the August 19 history and physical: Acute respiratory failure requiring intubation secondary to hemorrhagic shock Cardiac arrest (her near cardiac arrest) High-grade papillary urothelial carcinoma with severe hematuria Acute blood loss anemia requiring 15 units packed red blood cells plus FFP plus cryoprecipitate Diabetes mellitus type II Hypothyroidism Hyperlipidemia Bedside Blood Glucose: 136 Surgical History Left shoulder arthroscopy Transurethral resection of bladder tumor May 2016 Complete cystoprostatectomy and pelvic exoneration with presurg chemo.2016 Social History Occupation: diabled Living Situation: lives with spouse, Sherly Responsive Patient Symptoms Pain (current): Moderate Pain (maximium): Moderate Tiredness/Fatigue: Moderate Nausea: Moderate Depression: Moderate Anxiety: Moderate Drowsiness/Sleepiness: Moderate Anorexia: Moderate Shortness of Breath: Mild Palliative Performance Scale PPS Patient Status: Current PPS Ambulation: Full Performance Scale: 80% Allergy Allergies Reviewed: Yes Medications Current Medications: Current Medications Hydromorphone HCl 2 mg Q4H PRN IVPUSH Last administered on 09/30/16 21:19; Admin Dose 2 MG; Start 09/30/16 at 20:50 Al Hydrox/Mg Hydrox/Simethicone 30 ml Q6H PRN PO; Start 09/30/16 at 21:05 Ondansetron HCl 4 to 8 mg Q4H PRN IVPUSH Last administered on 10/01/16 06:08; Admin Dose 8 MG; Start 09/30/16 at 21:05 Senna 17.2 mg BID PRN PO; Start 09/30/16 at 21:05 Polyethylene Glycol 17 gm DAILY PRN PO; Start 09/30/16 at 21:05 Hydromorphone HCl 1 mg Q4H PRN IVPUSH Last administered on 10/01/16 11:12; Admin Dose 1 MG; Start 09/30/16 at 21:30 Heparin Sodium (Porcine) 5,000 unit Q8 SUBQ Last administered on 10/01/16 01:12 ; Admin Dose 5,000 UNIT; Start 10/01/16 at 00:30 Alprazolam 1 mg HS PRN PO; Start 09/30/16 at 22:45 Furosemide 40 mg DAILY PO; Start 10/01/16 at 08:30; Stop 10/01/16 at 09:01; Status DC Levothyroxine Sodium 100 mcg DAILYAC PO Last administered on 10/01/16 09:08; Admin Dose 100 MCG; Start 10/01/16 at 07:30 Lorazepam 0.5 mg TID PRN PO Last administered on 10/01/16 14:08; Admin Dose 0.5 MG; Start 09/30/16 at 22:45 Methadone HCl 20 mg TID PO; Start 10/01/16 at 08:30; Stop 10/01/16 at 08:30; Status DC Olanzapine 2.5 mg Q4H PRN PO; Start 09/30/16 at 22:45 Sertraline HCl 100 mg DAILY PO Last administered on 10/01/16 09:08; Admin Dose 100 MG; Start 10/01/16 at 08:30 Dronabinol 5 mg TID PRN PO; Start 09/30/16 at 22:55 Hydromorphone HCl 8 mg Q3H PRN PO Last administered on 10/01/16 14:26; Admin Dose 8 MG; Start 09/30/16 at 23:00 Non-Formulary Medication 65 unit DAILY SQ; Start 10/01/16 at 08:30; Stop at 08:30; Status DC Non-Formulary Medication 20 meq DAILY PO; Start 10/01/16 at 08:30; Stop at 08:30; Status DC Methadone HCl 20 mg TID PO Last administered on 10/01/16 07:10; Admin Dose 20 MG; Start 09/30/16 at 23:00; Stop 10/01/16 at 12:29; Status DC Insulin Glargine 65 unit 65 unit DAILY SUBQ; Start 10/01/16 at 08:30 Sodium Chloride 1,000 ml @ 100 mls/hr Q10H IV Last administered on 10/01/16 09 :08; Admin Dose 100 MLS/HR; Start 10/01/16 at 09:05 Piperacillin Sod/ Tazobactam Sod/ Dextrose/Water 50 ml @ 12.5 mls/hr Q8H IV; Start 10/01/16 at 20:00 Methadone HCl 15 mg TID PO Last administered on 10/01/16 14:09; Admin Dose 15 MG; Start 10/01/16 at 14:30 Scheduled Furosemide (Furosemide) 40 Mg Tablet 40 MG PO DAILY Insulin Detemir (Levemir Flextouch) 100 Unit/1 Ml Insuln.pen 65 UNIT SQ DAILY Insulin Lispro (Humalog Kwikpen) 200 Unit/Ml (3 Ml) Insuln.pen 20 UNIT SQ TIDWM Levothyroxine (Levothyroxine) 100 Mcg Tablet 100 MCG PO DAILYAC Methadone (Methadone) 5 Mg Tablet 20 MG PO TID Potassium Chloride ER (Potassium Chloride ER) 20 Meq Tablet.er 20 MEQ PO DAILY TAKE WITH FOOD Sertraline HCl (Zoloft) 20 Mg/1 Ml Oral.conc 100 MG PO DAILY Scheduled PRN Alprazolam (Alprazolam) 1 Mg Tablet 1 MG PO HS PRN PRN For Anxiety Dronabinol (Marinol) 5 Mg Capsule 5 MG PO TID PRN PRN For Bowel Movement Hydromorphone (Hydromorphone) 8 Mg Tablet 8 MG PO Q3H PRN PRN Pain Lorazepam (Lorazepam) 0.5 Mg Tablet 0.5 MG PO TID PRN PRN For Anxiety or Agitation Metoclopramide Inj (Metoclopramide Inj) 5 Mg/1 Ml Vial 5 MG PO Q6H PRN PRN For Nausea/Vomiting Olanzapine (Olanzapine) 2.5 Mg Tablet 2.5 MG PO Q4 PRN PRN For Nausea Objective Findings Exam Vital Sign - Last Date Time Temp Pulse Resp B/P Pulse Ox O2 Delivery O2 Flow Rate FiO2 10/01/16 11:54 36.6 16 108/86 95 Room Air 10/01/16 09:13 87 Intake and Output 09/30/16 09/30/16 10/01/16 Cumulative From/Thru 15:00 23:00 07:00 09/30/16 20:17 - 7/20/17 06:06 Intake Total 2000 ml 2000 ml Output Total 1900 ml 1900 ml Balance 100 ml 100 ml Intake Oral 1200 ml 1200 ml IV Total 800 ml 800 ml Output Urine Total 1900 ml 1900 ml # Bowel Movements 0 0 General: Alert/Oriented x3, Agitated (c/o increasing groin pain) HEENT: PERRLA, EOMI, Scleral Anicteric Heart: Regular Rate/Rhythm Lungs: Clear to Auscultation Abdomen: Soft Extremities: No Edema Lab/Diagnostics Lab and Imaging results reviewed in detail in EMR. Patient/Family Conference Members Present Family Members Present patient Medical Team Members Present? [facility] Discussion/Goals of Care Discussion Time spent Total time 50 minutes; >50% face to face with patient and/or family, providing counselling regarding plans and recommendations, and in care coordination with his/her medical teams. time spent in chart review, review with his and patient and management of care. I also spent an additional [ ] minutes counseling for advanced care planning with the patient/the patients family/the surrogate decision maker. copies to: Haven Fisher MD; Pat Phipps MD, Deborah A MD Oct 01, 2016 15:09 treatment decisions? What is quality of life for the patient: to be able to interact with their loved ones and friends, to travel, not to be bedbound, to be independent in taking care of themselves: Would patient choose quality of life over quantity of life? Would comfort care be more important than being awake and alert? If patient is no longer alert and aware because of their illness, would you choose comfort for them? Palliative Care counselled: Time spent Total time 50 minutes; >50% face to face with patient and/or family, providing counselling regarding plans and recommendations, and in care coordination with his/her medical teams. time spent in chart review, review with his and patient and management of care. I also spent an additional [ ] minutes counseling for advanced care planning with the patient/the patients family/the surrogate decision maker. Ethel Romero MD Oct 01, 2016 15:09
--- NOTE | 2016-10-01 15:12 | NUR ---
Social Work: Initial Assessment/Multi-Disciplinary Rounds D: EMR reviewed. Please see initial assessment linked to this note for additional details. Pt is a readmit. Pt has a high readmit score of 5. Pt is a 51 y/o male admitted inpatient for dehiss S/P fall, S/P cystectomy per H&P. SW met with pt and at bedside to conduct initial assessment. Pt was alert and oriented x3. SW explained role and wrote phone number on white board. SW provided "Your Discharge Planning Checklist" and encouraged pt to contact SW for any discharge planning needs that may arise after review of checklist. Pt asked SW to contact his to complete assessment due to pain. SW placed T/C to pt's spouse Sherly Knutson ([phone]) to complete assessment. Pt's insurance is [employer] [facility] and PCP is Fausto Salvador MD. Pt receives in-home assistance with all ADLs from his at baseline. Pt uses a walker at baseline to ambulate. Pt does not drive. Pt transferred to [facility] from [place] [facility] after suffering fall at home as documented as an episode of syncope per H&P. Pt does not know how he fell and did not witness fall. SW asked spouse about her ability to continue to care for pt at home. Spouse stated that she is able to care for pt and has been while he has been in and out of the hospital. Pt's spouse will provide transport home via POV when pt is medically stable. [facility] to [facility] ([phone]) to confirm pt is still open with HH RN PT 2x/week (discharge plan per last hospital stay). David requested that SW fax resumption orders when pt is ready to discharge (fax [phone]). A: Pt who requires assistance with ADLs at home. Pt's spouse provides care and transportation for pt. Pt's need ADL assistance increased due to multiple recent hospitalizations. Pt's capacity for self-care assessed - no concerns identified. P: Pt likely to discharge home with spouse via POV. Pt likely to resume HH RN PT 2x/week pending MD review. SW will request resumption order if MD sees appropriate. SW does not anticipate any further needs at discharge but will continue to follow for needs that may arise. ANGEL Shelley Addendum: 10/01/16 at 1540 by JACQUELINE WASHINGTON SS Amended: Links added. Addendum: 10/01/16 at 1541 by JACQUELINE WASHINGTON SS CORRECTED - Assured ANGEL Shelley
[2016-10-01] MEDS ORDERED: HYDROmorphone 1 mg/mL Inj IVPUSH PRN (15:50)
--- NOTE | 2016-10-01 17:04 | CONS ---
[address] [address] CONSULTATION REPORT PATIENT: DIANA CROWELL : 1965 MR#: [id number] ADMIT: 09/30/2016 JOB ID: [id number] DATE OF SERVICE: 10/01/2016 REQUESTING PHYSICIAN: Ashlie Collado DO I thank Dr. Collado for this timely consult. REASON FOR CONSULTATION: Gram-negative bacteremia in a patient with a dehisced abdominal wound. HISTORY OF PRESENT ILLNESS: The patient is an extraordinarily complicated 51-year-old gentleman who I know well from a lengthy admission earlier this year. He was diagnosed with advanced bladder carcinoma which was complicated by among other things, an MSSA bacteremia secondary to infected Port-A-Cath. The Port-A-Cath was subsequently removed and the patient underwent a long course of intravenous antibiotics prior to the eventual definitive surgery which was a cystectomy and formation of an ileal loop. The radical cystoprostatectomy with pelvic lymph node dissection and formation of the ileal conduit occurred on August 31. The patient then completed his prolonged course of intravenous antibiotics aimed at his MSSA bacteremia arising from his infected port and was eventually discharged to his home in [place]. The patient reports that following his discharge on September 11, he was convalescing steadily at home. He reports that his strength was increasing, he was not having fevers or chills, he was eating okay, and his abdomen was nontender with good function of the ileal conduit. On the night of September 29, the patient reports he got up late at night to get a drink and a sandwich. As he reached onto the top shelf of his refrigerator to grab the sandwich, he started to lose consciousness and collapsed at his house and was eventually looking up at the ceiling holding the sandwich. This led to his transfer to [facility] which is closest to his home where he was evaluated and subsequently transferred here. While at [facility], he had CT scan of the brain and spine which did not show any acute abnormalities and was subsequently transferred to this facility. The patient noted immediately after his fall that there was drainage from the lower part of his cystoprostatectomy postoperative wound. This was draining some bloody and foul smelling liquid. Prior to this time, he had not had any problems with the incision word nor did he have any fevers, chills or infectious symptoms. The patient tells us that as of this afternoon, he has still not had any fevers, chills, sweats, or any other symptoms that one would associate with infection of the wound. At this time the patient is awaiting additional evaluation by Urology for his dehisced lower abdomen/pelvic wound and the drainage associated with it. As noted above, no fevers, chills or sweats. No significant sore throat, cough, chest pain, nausea, vomiting, or diarrhea. He notes his swollen legs have been decreasing day by day and his functional status had been improving every day up until September 29 when he fell and dehisced his lower abdominal wound. PAST MEDICAL HISTORY: 1. Bladder cancer diagnosed June 2016, status post four cycles of chemo and status post definitive cystoprostatectomy on August 31. 2. Recurrent hemorrhage and blood loss, which at one point led to a cardiac arrest. 3. Hyperlipidemia. 4. Diabetes. 5. Status post placement of a port on June 17 which was subsequently removed in August because it was infected with MSSA. 6. Hypothyroidism. 7. Anxiety. SOCIAL HISTORY: The patient smoked briefly as a young man ever since. He has a been a social drinker but quit that lately. He served in the [employer] for 12 years with prolonged service in [place]. During his last admission, he was checked for Schistosoma and he has no evidence of prior schistosomal infection. FAMILY HISTORY: Negative for TB in first and second-degree relatives. REVIEW OF SYSTEMS: The patient denies any headache at this time. No visual change, sore throat, cough, shortness of breath, chest pain, nausea, vomiting, diarrhea. The patient does note that he has had some chills overnight since admission but these did not predate admission. He does have lower abdominal pain at this time associated with his dehiscence of the wound which occurred after he fell two nights ago. He notes that the dramatic swelling of his legs which was so severe as to preclude walking when he left the hospital a few weeks ago, is almost completely resolved at home. Remainder of the review of systems is unremarkable. PHYSICAL EXAMINATION: Reveals an afebrile gentleman. Since his readmission, temperature is 36.6, pulse 87, respiratory rate 16, blood pressure 108/86. He is saturating well on room air. Examination of the mental status reveals it to be clear. As before, his mood is diminished and his affect is flat. His eyes are notable for some conjunctival pallor. No scleral icterus is seen. Oral cavity negative. No pharyngitis. He does have a coated tongue and teeth but no thrush per se. His neck is without notable adenopathy, is supple. His lungs are clear. Cardiac tones regular rate and rhythm without murmur. The site of his grossly infected Port-A-Cath from a month ago is almost completely healed with no evidence of purulence at the remaining very small opening. His abdomen is moderately distended with midline incision which extends from the umbilicus down to the symphysis pubis. The lower portion of this wound is dehisced with bloody, foul smelling anaerobic drainage. This is fairly copious drainage. The remainder of the abdomen is unremarkable. The ileal conduit appears to be functioning properly and is without evidence of inflammation. No significant flank tenderness. His lower extremities are dramatically improved as compared to what I saw a few weeks ago when he left the hospital. They are near normal in size without any evidence of cellulitis or skin breakdown. Minimal peripheral edema. No evidence of synovitis. Patient is neurologically intact. LABORATORY DATA: Labs include white count of 14,000, mild left shift. Platelet count 207,000. Creatinine is 0.93. LFTs normal except for an alk phos 389, BNP 1932 interestingly. Albumin is 2.0. Procalcitonin 1.18. When he left the hospital in mid August, his procalcitonin had declined and were steady at about 0.13 so this is a 10 fold increase. We do not have a current urinalysis. Schistosoma antibody done last month was negative. Micro studies from this admission, 1 out of 4 bottles drawn on September 30 is growing gram-negative zuly. Interestingly this is growing in the anaerobic bottle and so this could be either a facultative aerobe or actual strict anaerobes given the foul odor arising from his dehisced wound. Followup blood cultures were done today and these are pending. IMAGING: At this facility includes nothing on this admission. IMPRESSION: This is an unfortunate gentleman who has had already a couple of long hospitalizations this year related to methicillin-susceptible Staphylococcus aureus bacteremia arising from an infected port that he was using to receive chemotherapy for his bladder cancer and then at admission, the actual definitive surgery which was a cystoprostatectomy. He has now suffered another complication relating to the ongoing saga with his bladder cancer in that he fell at home and then suffered dehiscence of the wound. It appears clinically at least that this wound is infected as it has a foul anaerobic order to it and is much more drainage than one would expect from a simple wound dehiscence. It seems very likely that the gram-negative zuly in the blood is related to the dehisced abdominal wound and what is likely an infection residing somewhere behind the cystoprostatectomy incision. RECOMMENDATIONS: 1. I agree with Zosyn which has already been started and should provide tremendous coverage whether this is aerobic or anaerobic. 2. We await the final identifications and susceptibilities before choosing antibiotics. 3. The patient will likely require a CT scan of the abdomen and pelvis and certainly will require additional management from the Urology team in terms of exploring and caring for the dehisced wound. 4. Wound management may also be a reasonable consult, but the patient will almost certainly require some form of debridement before the wound will start to heal.
[2016-10-01 17:42] LABS: APPEARANCE,URINE HAZY (CLEAR,HAZY); COLOR,URINE YELLOW (YELLOW); OCCULT BLOOD,URINE LARGE (NEGATIVE); PH,URINE 6.5 (5.0-8.0); UROBILINOGEN,URINE NORMAL (NORMAL)
[2016-10-01 17:56] LABS: INR 1.05 ratio
[2016-10-01] MEDS ORDERED: HYDROmorphone 1 mg/mL Inj IVPUSH ONE (18:55)
--- NOTE | 2016-10-01 18:56 | NUR ---
PAIN/WOUND/ACTIVITY Patient rates his pain as 7/10. Dilaudid PO administered and IV PRN for BTP. Pain level after his pain medication is 0/10. Patient has been NPO most of the day for ? surgery. Diet restarted this afternoon. Tolerating liquids PO. Denies nausea. No emesis noted. Denies SOB. BR at this time d/to pain issues. Dressing over his abdominal area was changed by Dr. Mendoza. Wet to dry dressing was applied. Wound care to assess patient in the morning. Specimen for culture was sent to the lab. Urosotmy in place draining to yellow colored UO. Patient is on tele. Per television receiver analyzer patient is on sinus rhythm; HR-80's.
--- NOTE | 2016-10-01 19:32 | CONS ---
[address] [address] CONSULTATION REPORT PATIENT: DIANA CROWELL : 1965 MR#: [id number] ADMIT: 09/30/2016 JOB ID: [id number] DATE OF SERVICE: 10/01/2016 CHIEF COMPLAINT: Wound evaluation, hydronephrosis, pelvic fluid collections. HISTORY OF PRESENT ILLNESS: I was asked by hospitalist, Dr. Leon Agudelo, to evaluate this 51-year-old male for wound evaluation, bilateral hydronephrosis, and pelvic fluid collections. The patient has bladder cancer and is status post radical cystoprostatectomy, extended pelvic lymph node dissection, and ileal conduit urinary diversion creation on August 31, [address] Haven Fisher and Dr. Lizzy Curry. The patient presented to [facility] emergency department yesterday secondary to a fall and subsequent bleeding from his wound. The patient had a CT scan of the abdomen and pelvis showing pelvic fluid collections, mild bilateral hydroureteronephrosis, mild pericolonic inflammation in the proximal sigmoid, and significant lymphadenopathy in the abdomen and pelvis. The patient was subsequently transferred to [facility] under the care of hospitalist, Dr. Denis Hines last night. The patient also found to have a wound dehiscence and fever and elevated white blood cell count. In the hospital here the patient has been started on IV Zosyn. The patient presently reports no back no abdominal, flank, or back pain. Occasional mild nausea. No vomiting. Was tolerating p.o. yesterday, passing gas, and having bowel movements. No chills, no gross hematuria. Good urine output from urostomy. PAST MEDICAL AND SURGICAL HISTORY: Bladder cancer status post cystoprostatectomy with pelvic lymph node dissection and ileal conduit urinary diversion as per as per HPI, hypothyroidism, anemia, diabetes mellitus, anxiety, left shoulder arthroscopy. MEDICATIONS: Marinol p.r.n., Zosyn IV, Dilaudid IV p.r.n., methadone, Zoloft, insulin, Synthroid, Dilaudid, Xanax p.r.n., Ativan p.r.n., Zyprexa p.r.n., Maalox p.r.n., Zofran p.r.n., senna p.r.n., MiraLAX. ALLERGIES: FENTANYL. SOCIAL HISTORY: Never smoked. No current alcohol use. FAMILY HISTORY: Noncontributory. REVIEW OF SYSTEMS: Constitutional: The patient reportedly had fever at [facility]. No fever during hospitalization here. No chills. GI: Occasional nausea. No vomiting. PHYSICAL EXAMINATION: Vital signs: Afebrile since admission last night. Temperature presently 36.8 degrees Celsius. Heart rate 89, respiratory rate 15, BP 113/71, O2 sat 99% on room air. Urine output 1900 mL during the last 8 hour shift. General: Well-developed well-nourished male in no acute distress. HEENT: Head: Normocephalic, atraumatic. Eyes: Extraocular muscle intact. Neck: Supple. Chest: No use of accessory muscles. Nonlabored respirations. No retractions. Back: No costovertebral angle tenderness. Abdomen: Soft, mildly distended. Tenderness around the wound. No bowel masses. No rebound, no guarding. The upper portion of the wound well healed. The lower portion of wound open, with a small amount of purulent drainage within the open part of the wound, with granulation tissue present, and with fascia intact. Wound culture sent from the wound discharge. Wound packed with a moist to dry dressing. : Penis normal. No lesions. Urethral meatus normal. Testes bilaterally descended. No masses. Scrotum normal. Skin: Warm and dry. Neurologic exam: Sensation grossly intact to touch. Normal speech. Psychiatric: Alert and oriented x3. Normal mood and affect. LABORATORIES: Last night white blood cell count 14.3 and creatinine 1.01. This morning white blood cell count 13.5, hematocrit 25.9, platelets 207. Also this morning sodium 134, potassium 5.2, chloride 100, CO2 20, BUN 46, creatinine 0.93, glucose 92. Lactic acid normal at 0.6. MICROBIOLOGY: Blood cultures from last night positive for gram-negative rods. IMAGING: CT scan as per HPI. ASSESSMENT: 1. Mild bilateral hydroureteronephrosis with normal creatinine and excellent urine output. Highly unlikely secondary to ureteral obstruction 2. Pelvic fluid collections. 3. Wound dehiscence with infection with fascia intact. PLAN: Agree with broad-spectrum IV antibiotics with Zosyn. Recommend fluid IV fluid hydration. Recommend obtaining CT of the abdomen and pelvis IVP protocol to ensure there is no urinoma. Recommend CT-guided drainage of fluid collection by Interventional Radiology. The case was discussed with interventional radiologist Dr. Werner and plans for this to occur tomorrow. The patient has been made n.p.o. after midnight for this. Recommend moist to dry dressing changes for now and recommend wound care nursing evaluation tomorrow. Recommend following up wound culture results which were sent today. This patient to be followed closely by the Urology service.
[2016-10-01] MEDS: Piper-Tazo 3.375 Gm/50 mL D5W Minibag Plus - Q8H over 4 hrs IV SCH ×2 (19:53)
--- NOTE | 2016-10-01 20:05 | DRSVH ---
PROCEDURE: CT ABDOMEN PELVIS W&WO CONTRAST IVP PROTOCOL INDICATIONS: B/L hydronephrosis, h/o bladder CA, R/O urinoma TECHNIQUE: Optional 5 mm thick noncontrast images acquired from the diaphragm to the symphysis pubis. After the administration of intravenous contrast, 5 mm thick images acquired from the diaphragm to the symphys is pubis after a 10-minute delay. 2 mm thick coronal and sagittal reformats were then performed of t he kidneys and ureters. For radiation dose reduction, the following was used: automated exposure co ntrol, adjustment of mA and/or kV according to patient size. COMPARISON: Outside Film, CT, CT ABD PELVIS W CON, 09/30/2016, 7:23. FINDINGS: Image quality: Excellent. Lung bases: Bibasilar atelectasis or less likely infiltrate/aspiration. Heart size is normal. Urinary system: Both kidneys are normal in size, without hydronephrosis or nephrolithiasis on pre-co ntrast images. No perinephric fat stranding. Mildly heterogeneous left renal enhancement. Wall thic kening in the left renal pelvis and proximal left ureter. Normal ureteral caliber. Normal transit of contrast to the ileal conduit. Renal calyces appear normal in morphology when filled with contrast. Other solid organs: The liver is grossly normal with no hepatic masses. The spleen is enlarged otherw ise radiographically normal. There is possible inflammatory change about the pancreas. Otherwise the pancreas is within normal limits. Normal adrenal glands.. Peritoneum and bowel: Patulous colon. Right lower quadrant ostomy. Small bowel postoperative changes. No bowel obstruction. Nodes and vessels: There are prominent retroperitoneal lymph nodes. Aorta and inferior vena cava are normal in size. Abdominal wall: No ventral hernias. There is induration and subcutaneous gas throughout the soft ti ssues of the right lower quadrant. Pelvis: There is a gas and fluid collection at the bladder resection site with 2 limbs the largest o f which extends directly superiorly from the right aspect of the collection and the smaller of which extends left laterally and anteriorly about the sigmoid colon. Overall the fluid collection measures at least 6.8 x 8.9 x 10.8 CM. No inguinal hernias. Postoperative changes of bladder resection with ileal conduit construction. Bones: No suspicious bony lesions. No vertebral body compression fractures. IMPRESSION: 1. Horseshoe shaped pelvic fluid collection portions of which contain gas and multiple loculations co nsistent with an abscess at the bladder resection site. 2. Heterogeneous enhancement of the left kidney may be artifactual or represent left pyelonephritis. Wall thickening in the proximal left renal collecting system and ureter may also represent inflammati on or infection. Underlying malignancy is less likely but possible. 3. Ileal conduit construction with normal transit of contrast from the kidneys to the reconstruction. 4. Mild inflammatory change about the pancreas may be reactive related to the left kidney inflammator y change. Please correlate with lipase and amylase to exclude primary pancreatitis. 5. Mildly distended gallbladder. No CT evidence of acute cholecystitis. 6. Bibasilar atelectasis or early infiltrates. Aspiration is also possible. 7. Retroperitoneal lymphadenopathy likely related to the pelvic abscess. 8. Induration and gas in the right lower quadrant anterior abdominal wall subcutaneous tissues. No dr cee fluid collections at this site. Dictated by: Vincent Wilson M.D. on 10/01/2016 at 19:46 Approved by: Vincent Wilson M.D. on 10/01/2016 at 20:03
[2016-10-02] VITALS (10 sets, daily range): BP systolic 106–131; BP diastolic 58–74; PULSE 82–94; RESP 13–18; O2SAT 94–97
[2016-10-02] MEDS: Piper-Tazo 3.375 Gm/50 mL D5W Minibag Plus - Q8H over 4 hrs IV SCH ×6 (04:08→19:46)
[2016-10-02 06:02] LABS: Mean Corpuscular Hemoglobin 28.4 pg (27.0-35.0); Mean Corpuscular Volume 88.1 fL (81-100)
[2016-10-02] MEDS: 0.9% Sodium Chloride 1,000 ML IV SCH ×2 (06:07→12:25)
[2016-10-02 06:12] LABS: BASOPHILS % (AUTO) 0.3 % (0-3); MONOCYTES % (AUTO) 7.7 % (4-12); NEUTROPHILS % (AUTO) 77.9 % (40-74); Platelet Count 227 bil/L (150-400)
[2016-10-02] MEDS: Ondansetron 2 mg/mL 2 mL Inj IVPUSH PRN ×3 (06:27→11:00)
--- NOTE | 2016-10-02 07:49 | NUR ---
Pain Patient's pain has been managed with PO Dilaudid. Tele sinus 80's. Patient is bedrest and has had mild nausea this shift Patient was given 4mg Zofran. Patient has been NPO since midnight for CT guided drainage of Abscess schedule for today. Culture has already be taken. Care continues.
[2016-10-02] MEDS ORDERED: Sodium Chloride LOK Flush 10 mL Syringe IV PRN (08:00)
[2016-10-02] MEDS ORDERED: Flumazenil 0.1 mg/mL 5 mL Inj IV ONE (08:47)
[2016-10-02] MEDS: HYDROmorphone 1 mg/mL Inj IVPUSH PRN ×5 (08:54→19:46)
--- NOTE | 2016-10-02 09:00 | NUR ---
TO CT SCAN Patient transferred to CT scan.
--- NOTE | 2016-10-02 11:10 | NUR ---
Abdominal dressing was removed during drain placement in CT dept by Dr Parker. His nurse had informed me that dressing was a wet to dry dressing, therefore, gauze moistened with saline, covered with ABD pad and secured with paper tape.Pt tx back to room bedside handoff to Kolby Sahu. Zofran 4 mg given for c/o nausea prior to transfer.
[2016-10-02] MEDS: Insulin GLARgine 100 Unit/mL Syringe SUBQ SCH (11:54)
--- NOTE | 2016-10-02 12:26 | NUR ---
RECEIVED FROM [facility] Patient received from [facility]. IV restarted. Dressing in his abdomen is CDI. Drain in his medial abdomen is draining to yellow, clear output. Patient rated his pain as 8/10 on his abdomen. Dilaudid 8 mg PO administered. Patient complained of nausea. He was medicated with Zofran prior to transfer to the floor. Denies SOB. Patient is back on tele. S-Emiliana made aware RE: orders.
--- NOTE | 2016-10-02 12:38 | PROG NOTE ---
[address] [address] PROGRESS NOTE PATIENT: DIANA CROWELL : 1965 MR#: [id number] ADMIT: 09/30/2016 JOB ID: [id number] DATE: 10/02/2016 INFECTIOUS DISEASE FOLLOWUP NOTE: REASON FOR FOLLOWUP: Abscess near bladder resection site. INTERVAL HISTORY: In the past 24 hours the patient has had a drain placed into the abscess and he has been started on IV antibiotics as was discussed in our note yesterday. He has also been seen by the Urology service, who found that he had good renal function and pelvic fluid collections which were thought to be due to either urinoma or abscess, as well as wound dehiscence along the inferior portion of his cystoprostatectomy incision. This morning the patient tells us he is very fatigued and is just generally discouraged about his lack of forward progress here. He has had a number of setbacks since his original cancer diagnosis and this yet another one. Despite his discouragement, the patient feels reasonably well except for fatigue. He has no fevers or chills this morning or new pulmonary symptoms. Minimal pain at the site where the drain was just placed by Interventional Radiology. PHYSICAL EXAMINATION: Reveals a gentleman who is afebrile, temp 37, pulse 86, respiratory rate 13, blood pressure 111/59. He is saturating well on room air and in no acute distress. Examination of the eyes reveals pale conjunctiva. His mood is clearly decreased and flat affect as before. Lungs are clear. Abdomen with some tenderness in the suprapubic area where he now has a drain that has been placed by Interventional Radiology. The drain itself is yielding what appears to be urine colored fluid and I wonder whether this could represent a urinoma. LABORATORIES: Include white count today down to 11,500. His creatinine is 1.07. TSH is 30 interestingly. Procalcitonin was 1.18 two days ago and has not been repeated. The creatinine of the fluid that was obtained from the drain apparently earlier this morning has come back at 0.99, and this corresponds to a serum creatinine this morning of 1.07 and strongly suggests that the fluid obtained from the drain was in fact urine. Micro studies include blood cultures from the and the , both growing gram-negative rods which appear like Klebsiella or Enterobacter in the lab. Final report is pending on that. Also notable is urine growing greater than 100,000 gram-negative rods and the culture from the wound, which at this point has a few polys and a few gram-positive cocci. IMAGING: Includes a CT scan that was done yesterday evening which showed a fluid collection with gas and loculations consistent with an abscess at the site of the resected bladder. Also noted was possible left kidney pyelonephritis. IMPRESSION: This is a very complex case of a gentleman who we know well from prior admissions. Earlier this year he had an MSSA bacteremia from an infected port which briefly delayed his cystoprostatectomy for malignancy. He had an ileal conduit created as part of that surgery and did well until he developed this wound dehiscence in association with purulent drainage. The culture of that drainage is pending but it looks like there are going to be gram-positive coxa involved. Interestingly he has blood cultures which are growing a Klebsiella-like organism which will be more definitively identified tomorrow, and urine growing greater than 10 to 5th gram-negative rods. Whether he has strictly a pelvic abscess or may also have a bacteremic urinary tract process, or some combination of both, remains to be seen. At this point the patient has improved and a drain has been placed, though it looks as if the drain placed this morning in IR is draining urine, perhaps from a urinoma. RECOMMENDATIONS: 1. The patient is stable for now on Zosyn and I would continue with that pending final identification and then we can narrow or change the antibiotics is indicated. 2. The decision regarding the drain which was placed today, and which is apparently yielding urine, of course will be left to Dr. Mendoza of the Urology service, as will all decisions about his dehisced wound. 3. I will be off work for the next nine days but I can be reached by telephone or by text about this or any other patient during that interval. I will be returning to work October 12. Thank you very much.
--- NOTE | 2016-10-02 13:42 | PCM.PALLBR ---
Palliative Care Recommendation Summary of palliative recommendations: 10/02/16-Pain-now complicated with abscess- drained. Decreasing methadone but no evidence that this was cause of his syncope so it seems reasonable to increase due to medical issues and taper later. Will increase methadone to 17.5 mg TID and continue his hydromorphone dosing. If his pain worsens-would advise increasing to 20 mg TID. Syncope-at this point suspect due to abscess and not dysrhythmia. Wound-complication with abscess. Anxiety-has lorazepam ordered. Hypothyroidism-TSH last admit 63. Dose increased approx 3-4 weeks ago. Will recheck TSH, T4 even though bit early. -Symptom management (Pain/other) Syncope- ECG checked and QT 44-well within normal range. Still concerned for possible dysrhythmia.Consider 24 hour monitor check orthostatic BP/P when stable enough to do that. Pain-has had significant narcotic requirements. Will try to drop his methadone down to 15 mg TID with HM 8 mg PO or 1-2 IV Q 3 PRN. His gabapentin was d/brenda due to edema- unclear if related Anxiety--tends to be bigger issue when in hospital Wound dehiscence-defer to surg/urology. Chronic pain syndrome. -DPOA/Advanced Directives/POLST-FULL CODE -Family/emotional support- superb support from his Sherly - Problems: End of Life Preferences full code Goals of Care Hopes for full recovery Resuscitation Status Resuscitation Status: CPR: Attempt Resuscitation . Symptom management: Pain Total time 30 minutes; >50% face to face with patient and/or family, providing counselling regarding plans and recommendations, and in care coordination with his/her medical teams. I also spent an additional [ ] minutes counseling for advanced care planning with the patient/the patients family/the surrogate decision maker. copies to: Haven Fisher MD Palliative Brief Note Date of Service Oct 02, 2016 . 51 yo with pelvic abscess site of cysto-prostatectomy with spontaneous dehiscence and partial drainage and now guided drain placement. He had a syncopal spell night of admission-at this point assumed due to infection/abscess with normal QTc and no new med (had not started prazosin) Methadone decreased from 25 to 20 mg on 09/23 now dropped to 15 mg TID with continued backup hydromorphone 8 mg dose Q 3 Had increased pain from procedure- given IV HM and at present is comfortable. Nrsg notes pain at 7/7 prior to procedure. Ethel Romero MD Oct 02, 2016 13:42
--- NOTE | 2016-10-02 14:11 | DRSVH ---
PROCEDURE: CT ABSCESS DRAIN PERITONEAL INDICATIONS: pelvic fluid collections, fever COMPARISON: None. TECHNIQUE: Informed consent was obtained prior to commencement of the procedure. The patient was placed supine on the CT table. Anesthesia was provided by group home with contin uous hemodynamic monitoring. The area was prepped and draped in sterile fashion. The location of the central abdominal fluid collection was transferred to a skin marker. 1% lidocaine was used for local anesthesia. An 18 gauge Chiba needle was advanced into the fluid collection. An 0.35 J-wire and subse quently an Amplatz wire were used over which an 8 Swedish pigtail catheter was exchanged. Serous sangu inous fluid was aspirated and sent for testing as per their request in position. The patient tolerate d the procedure without complication. FINDINGS: Multiple areas of fluid collection within the abdomen and pelvis the largest at the centra l pelvis. Post procedure imaging demonstrates pigtail catheter within the collection. IMPRESSION: Central pelvic fluid drainage placement as above. Dictated by: Romy Parker M.D. on 10/02/2016 at 14:05 Approved by: Romy Parker M.D. on 10/02/2016 at 14:09
[2016-10-02] MEDS ORDERED: HYDROmorphone 1 mg/mL Inj IVPUSH ONE (15:20)
--- NOTE | 2016-10-02 15:32 | NUR ---
Inpatient Wound RN Patient seen by [facility]ON RN for PU Protocol Prevention/Assess. R chest wound, prior line site, 1 cm L x 1 cm W x 0.1 cm D; 66% beefy red, granulating wound bed with small amount of sanguinous drainage after loosely adhered, yellow slough wiped away with sterile gauze moistened with NS. Slough had covered 33% of wound bed. Edges well adhered, slight erythemic halo extending 2 cm. Wound was cleansed and covered with bordered Mepilex. Coccygeal pressure ulcer Stage 3, 1 cm L x 1.5 cm W x 0.2 cm D, covered in 50% well adhered, stringy, yellow slough, remaining tissue beefy red and granulating. Edges well adhered, no tunneling or undermining. Erythemic halo extending 2 cm. Wound was cleansed and covered with bordered sacral Mepilex. Midline surgical incision 6 cm L x 5 cm W x 3 cm deep at base. Undermining of entire perimeter noted. Tunnel at 2 o'clock measures 7 cm. Tunnel at 10 o'clock measures 4.5 cm. Wound bed is 50% beefy red granulating tissue and 50% firmly adhered, stringy brown and yellow slough. Dressing that was removed was saturated and secondary ABD dressing was lightly wet on inner surface. Removed gauze was odorous and streaked with almanzar, yellow, and red fluid. Periwound skin is red and tender to touch, although without signs of maceration. Per phone conversation with Dr. Mendoza, dressings will continue as lightly moist to dry over weekend as drainage is expected to decrease, expect TID if drainage does not decrease but will schedule BID and PRN. Wound nurse will see patient on Wednesday.
--- NOTE | 2016-10-02 16:25 | NUR ---
ACTIVITY Dilaudid IV administered prior to and post wound care assessment. Patient rated his pain as 4-5/10 after his medication. Tolerating liquids well. Patient has no appetite. All he wants is Milk and Ensure for his meals. Zofran IV was administered for complaints of nausea. No emesis noted. Denies SOB. Urostomy in place with yellow UO noted. Dressing in his abdomen remains CDI. Ttube drain flushed per orders. Yellowish, clear liquids noted from his Ttube drain. Patient continues to be on remote tele. Per telemarketing representative patient is on sinus rhythm; HR-84 with occasional PVC's.
[2016-10-02] MEDS: LORazepam 0.5 mg Tablet PO PRN (17:43)
--- NOTE | 2016-10-02 18:19 | PCM.PNMED ---
Subjective Date of Service Oct 02, [address]-guided drainage of pelvic fluid today. Tolerated the procedure well. Has resumed diet and is tolerating. Exam Vital Signs Vital Sign - Last Date Time Temp Pulse Resp B/P Pulse Ox O2 Delivery O2 Flow Rate FiO2 10/02/16 12:33 36.6 90 16 119/74 96 Room Air Intake and Output 10/01/16 10/01/16 10/02/16 Cumulative From/Thru 15:00 23:00 07:00 09/30/16 20:17 - 10/02/16 06:34 Intake Total 2026 ml 2144 ml 6170 ml Output Total 1100 ml 1950 ml 4950 ml Balance 926 ml 194 ml 1220 ml Intake Oral 1200 ml 2144 ml 4544 ml IV Total 826 ml 1626 ml Output Urine Total 1100 ml 1950 ml 4950 ml # Bowel Movements 0 0 Exam General: No acute distress, pale, chronically ill-appearing HEENT: Normocephalic, atraumatic. External ears without defect. Pupils equal, round, and reactive to light and accommodation. Anicteric sclerae, moist conjunctivae, and no lid lag. Oropharynx free of erythema and cobble stoning with moist mucosa. Neck: Supple with full range of motion. No jugular venous distension. No lymphadenopathy or thyromegaly. Cardiovascular: Regular rate and rhythm with no murmurs, rubs, or gallops appreciated Pulmonary: Clear to auscultation bilaterally with no crackles, wheezes, or rhonchi. Normal respiratory effort with no use of accessory muscles. Abdomen: Bowel tones present. Obese, Soft, exquisitely tender, dressing is clean and dry over surgical site, was able to look at wound which looks minimally dehisced however patient was in excruciating pain and even the most mild touch. Minimal blood noted on dressing. Nondistended. No hepatosplenomegaly or masses appreciated. Urostomy with clear yellow urine present Extremities: No clubbing, cyanosis, edema, or lymphadenopathy appreciated. Skin: Normal temperature, turgor, and texture; no rash, ulcers, or subcutaneous nodules appreciated. Neurological: Cranial nerves grossly intact. Normal muscle strength, tone, and bulk. Reflexes, coordination, and sensory function within normal limits. No known gait impairment. Psychiatric: Patient appears anxious and angry. Alert and oriented to person, place, and time. Lab and Diagnostics Result Diagram: 10/02/16 0529 10/02/16 0529 Microbiology CHANO CULTURE BLOOD Preliminary 10/01/16-1151 Organism 1 POSITIVE BLOOD CULTURE GRAM STAIN RESULT GRAM NEGATIVE RODS BC BOTTLE Isolated from Anaerobic Bottle of Set Drawn DATE CALLED: 10/01/16 TIME CALLED: [id number] CALLED BY: LENA FLOOR/DOCTOR: SOULEYMANE Rod BC READ BACK Y TYPE OF DRAW PERIPHERAL DRAW TIME OF POSITIVITY 1118 Microbiology 09/30/16 Blood Culture, Received Pending X-Rays, CTs and MRIs CT head without contrast Impression: 1. No CT evidence of acute intracranial process. Dictated by: Yelena Belcher M.D. CT cervical spine without contrast Impression: 1. No CT evidence of acute trauma. 2. Mild degenerative endplate changes at C5 and C6. 3. Left posterior cervical chain lymph node, probably reactive. Correlate clinically. Dictated by: Yelena Belcher M.D. CT abdomen and pelvis without contrast Impression: 1. Multilobulated pelvic fluid collection status post colectomy. The most distal aspect of the fluid collection contains gas and appears to be in continuity with mildly prominent prostatic urethra. 2. Mild bilateral hydronephrosis and hydroureter status post ureteral diversion. Renal enlargement may be physiologic postop, though partial obstruction is not excluded. The ostomy appears to be unobstructed, although there may be stenosis at the ureteroenteric anastomosis. 3. There is mild pericolonic inflammation in the proximal sigmoid where it is adjacent to one of the pelvic fluid collection. This may be reactive or infectious colitis. 4. There is proximal colonic obstipation, likely from narcotic use. 5. Hepatosplenomegaly with hepatic morphology suggestive of cirrhosis. Spleen size has considerably increased compared to 03/24/2016 where it measured 16.9 cm in AP diameter, now 19.8 cm. 6. Paraesophageal, periceliac, periportal, periaortic, and pelvic adenopathy, worse since prior studies, potentially reactive but concerning for metastatic disease. Dictated by: Yelena Belcher M.D. Assessment & Plan Alexis Knutson is a 51-year-old man with past medical history significant for high- grade bladder urothelial carcinoma status post cystectomy and prostatectomy with ileal conduit who had a protracted stay for about a month in August 2016 with complications from his surgery including intractable pain difficult to control nausea who presented to the [facility] emergency department today due to a fall and subsequent dehiscence of his surgical wound today and was then tx to [facility] after CT Abd finding of Pelvic Fluid collection increase bilateral hydronephrosis suggesting possible partial obstruction, and obstipation. #Sepsis, present on admission, active- SIRS- criteria fever at [facility] and white count of 14 on admit. Blood cultures from 09/30 have come back positive for gram-negative rods.Source is likely pelvic fluid collection. CT suggests possible Colitis. Consider Port infection, hx of MSSA from port. -CT Abd finding of Multilobulated Pelvic Fluid collection, increase bilateral hydronephrosis suggesting possible partial uretral obstruction, and Colonic obstipation. -Currently afebrile, WBC 14.3-13.5. Lactic acid 0.6. Procalictonin- 1.18. Started patient on Zosyn on morning of 10/01. -Pt started on IV fluids, monitor BP. -Given wound dehiscence and pelvic fluid collection patient may need to have this drained. -Consulted Urology, Dr. Brendon Mendoza-appreciate recommendations. Recommends CT- guided drainage. Wound dehiscence can be managed with wound care. Bilateral hydronephrosis is mild and not likely secondary to obstruction. -Discussed case with ID, Dr. Cameron, Agrees with initial antibiotic choice of Zosyn given gram-negative bacteremia. We will follow-up blood cultures for speciation and susceptibility. #High-grade bladder urothelial carcinoma status post colectomy and prostatectomy with ileal conduit, w/ wound dehiscence. -Urostomy care. Increased Adenopathy, may be reactive. -Patient's urologist Dr. Temple not in office. Have consulted Urology, Dr. Brendon Mendoza. #Ground-level fall, present on admission, active -Etiology unclear but patient's elevated white count is concerning for a recurrent infection. -We will monitor with telemetry. Unlikely secondary to conduction abnormality or cardiac problems. -Patient has noted some dizziness in the past that has occurred spontaneously. -Unlikely due to seizure. #Wound dehiscence secondary to fall, present on admission, active -Currently appears to be minimally dehisced. Exam was limited by patient's pain at this time. -Contacted urology/general surgery , see above -Dilaudid when necessary for pain #Proximal Colonic Obstipation-present on admission, active -pt started on bowel regimen, consider Enema if no BM. #Acute on chronic pain, present on admission, active -Continue outpatient pain medications as recommended by palliative care -Consider consulting how to care for further pain management. Chronic Medical Issues- #Type II diabetes mellitus -Insulin requiring -We will continue with 50% of the patient's chronic dose. #Anxiety -Continue outpatient medications #Hypothyroidism -Continue levothyroxine CODE STATUS: Full code Patient is admitted under inpatient status with expected length of stay greater than 2 midnights due to severity of presenting symptoms, risk of adverse event, and complexity of treatment plan. VTE Prophylaxis: Sub-Q Heparin (Unfractionated) VTE Mechanical Devices: Intermittant Pneumatic CD Resuscitation Status: CPR: Attempt Resuscitation Leon Agudelo MD Oct 02, 2016 18:19
[2016-10-03] VITALS (7 sets, daily range): BP systolic 109–125; BP diastolic 60–76; PULSE 82–91; RESP 16–18; O2SAT 94–98
[2016-10-03] MEDS: HYDROmorphone 1 mg/mL Inj IVPUSH PRN ×6 (00:59→20:36)
[2016-10-03] MEDS: 0.9% Sodium Chloride 1,000 ML IV SCH ×3 (02:48→21:05)
[2016-10-03] MEDS: Piper-Tazo 3.375 Gm/50 mL D5W Minibag Plus - Q8H over 4 hrs IV SCH ×2 (04:41)
[2016-10-03 06:21] LABS: BASOPHILS % (AUTO) 0.2 % (0-3); EOSINOPHILS % (AUTO) 1.3 % (0-5); MONOCYTES % (AUTO) 7.3 % (4-12); Mean Corpuscular Hemoglobin 28.7 pg (27.0-35.0); Mean Corpuscular Volume 90.4 fL (81-100); NEUTROPHILS % (AUTO) 75.9 % (40-74); Platelet Count 244 bil/L (150-400)
--- NOTE | 2016-10-03 06:41 | NUR ---
Pain Pt continues to report pain 8/10 and requesting dilaudid. PO and IV dilaudid used with + effects. Pt has T drain to medial abdomen for draining abcess, with yellow mucous drainage. Flushed per orders. Dressing intact to abdominal incision. Pt bedrest all shift, states feels very weak. IV fluids infusing, Pt has tele on, SR 80's with PVC's. 0 ase's noted to IV antibiotics. at bedside. Care continues.
[2016-10-03] MEDS: Insulin GLARgine 100 Unit/mL Syringe SUBQ SCH (08:21)
[2016-10-03] MEDS ORDERED: levoFLOXacin Inj 750 MG in IV Premix 1 EACH IV SCH (10:00)
--- NOTE | 2016-10-03 13:02 | NUR ---
Evaluation completed. Please go to "Notes" then click on "Assessments and Notes" (bottom left corner of screen). Then select appropriate discipline tab on top of screen.
--- NOTE | 2016-10-03 13:47 | PROG NOTE ---
[address] [address] PROGRESS NOTE PATIENT: DIANA CROWELL : 1965 MR#: [id number] ADMIT: 09/30/2016 JOB ID: [id number] DATE: 10/03/2016 SUBJECTIVE: The patient was admitted earlier in the week after a fall, where he experienced wound separation with intact fascia. A CT scan at that time showed a pelvic fluid collection which has since been tapped and a drain placed. Initial Gram stain of the fluid showed numerous white cells but no bacteria. Blood cultures were positive for gram-negative rods. PHYSICAL EXAMINATION: On examination, the patient is comfortable with good pain control. PLAN: At this time, we are waiting for a wound VAC hopefully after a Wound Clinic consultation. Once culture and sensitivities are back, hopefully can be placed on oral antibiotics, and once plan of wound management is established can be discharged home.
--- NOTE | 2016-10-03 15:59 | NUR ---
NUTRITION ASSESSMENT: ASSESS:51 YO male admitted status post fall, resulting in wound separation with intact fascia. CT scan at admission showed a pelvic fluid collection which has since been tapped and a drain placed. Initial Gram stain of the fluid showed numerous white cells but no bacteria. Blood cultures were positive for gram-negative rods. At this time, POC is for wound VAC following wound consult. PMHx:High-grade papillary urothelial carcinoma as post radical cystectomy and prostatectomy and ileal conduit, intractable nausea, severe hypothyroidism, acute blood loss anemia, MSSA port infection, type II diabetes, anxiety. DIET:Consistent carb. PO intake 0 - Ensure only. LABS: Reviewed. K+ 5.6, BUn 33, Ca 7.9. MEDICATIONS: Reviewed. Marinol, insulin, synthroid. NUTRITION FOCUSED PHYSICAL ASSESSMENT: GI symptoms / stool: No stool reported.Guero: 18. Skin Integrity: Per Mechanical Maintenance Supervisor, R chest wound 66% beefy red, granulating wound bed with small amount of sanguinous drainage after loosely adhered, yellow slough. Slough had covered 33% of wound bed. Edges well adhered, slight erythemic halo. Coccygeal pressure ulcer Stage 3, covered in 50% well adhered, stringy, yellow slough, remaining tissue beefy red and granulating. Edges well adhered, no tunneling or undermining. Erythemic halo. Midline surgical incision; wound bed is 50% beefy red granulating tissue and 50% firmly adhered, stringy brown and yellow slough. ANTHROPOMETRICS: Current Wt: 119.0 kgBMI: 34.0 kg/m2.Admit weight: 119.0 kg. IBW: 83.64 kg (142% IBW) ESTIMATED NEEDS (WOUNDS, CANCER, STAGE I OBESITY): Calories: 2509 - 2927 kcal (30 - 35 kcal / kg IBW) Protein: 151 - 167 g protein (1.8 - 2.0 g / kg IBW) Fluid: Approx. 4165 mL (35 mL / kg BW) NUTRITION DIAGNOSIS: 1)Inadequate oral intake related to inability to consume sufficient energy, as evidenced by poor PO intake x 3 D. 2)Increased nutrient needs related to significant wound issues, as evidenced by requirement for wound VAC. INTERVENTION: 1) Will send Glucerna all trays. 2) Will send Shankar + diet lemon king salmon lunch and dinner to enhance wound healing. MONITOR/EVALUATE: Diet / supplement tolerance, PO intake, labs, GI/nutrition status. Follow up per high nutrition risk guidelines.
--- NOTE | 2016-10-03 16:25 | NUR ---
Social Work- Multidisciplinary Rounds Pt discussed in rounds. No social work needs identified in rounds. SW unable to see pt today due to high census. SW will continue to follow. ANGEL Elaine
--- NOTE | 2016-10-03 17:01 | PCM.PNMED ---
Subjective Date of Service Oct 03, 2016 Subjective Patient denies any fever overnight. Says abdominal pain is well-controlled. Drain is functioning. Exam Vital Signs Vital Sign - Last Date Time Temp Pulse Resp B/P Pulse Ox O2 Delivery O2 Flow Rate FiO2 10/03/16 13:37 36.7 83 18 117/62 95 Room Air Intake and Output 10/02/16 10/02/16 10/03/16 Cumulative From/Thru 15:00 23:00 07:00 09/30/16 20:17 - 10/03/16 05:58 Intake Total 1261 ml 1802 ml 1908 ml 98637 ml Output Total 750 ml 1350 ml 1595 ml 8645 ml Balance 511 ml 452 ml 313 ml 2496 ml Intake Oral 1280 ml 1908 ml 7732 ml IV Total 1261 ml 522 ml 3409 ml Output Urine Total 750 ml 1250 ml 1500 ml 8450 ml Drainage Total 100 ml 95 ml 195 ml # Bowel Movements 0 Exam Gen: NAD, AOx4, Obese HEENT: NCAT, PERRLA, EOMI, MMM, sclera anicteric. Neck: Soft, supple, no thyromegaly/JVD/LAD. Resp: CTAB, no R/R/W. CV: S1 S2, RRR, No M/R/G Abd: Soft, (+) BS, NT/ND, no guarding/rebound/organomegaly. Dressing is clean and dry over surgical site, was able to look at wound which looks minimally dehisced. Drain site- c/d/i Ext: +PP, No edema. Skin: warm/dry/intact Neuro/Psych: Cooperative, appr mood/affect. CN II-XII grossly intact. No focal deficits IVs and Medications Medications Reviewed: Medications were reviewed in detail Lab and Diagnostics Result Diagram: 10/03/16 0537 10/03/16 0537 Microbiology CHANO CULTURE BLOOD Preliminary 10/01/16-1151 Organism 1 POSITIVE BLOOD CULTURE GRAM STAIN RESULT GRAM NEGATIVE RODS BC BOTTLE Isolated from Anaerobic Bottle of Set Drawn DATE CALLED: 10/01/16 TIME CALLED: 1149 CALLED BY: LENA FLOOR/DOCTOR: SOULEYMANE MIRELES READ BACK Y TYPE OF DRAW PERIPHERAL DRAW TIME OF POSITIVITY 1118 Microbiology 09/30/16 Blood Culture, Received Pending X-Rays, CTs and MRIs CT head without contrast Impression: 1. No CT evidence of acute intracranial process. Dictated by: Yelena Belcher M.D. CT cervical spine without contrast Impression: 1. No CT evidence of acute trauma. 2. Mild degenerative endplate changes at C5 and C6. 3. Left posterior cervical chain lymph node, probably reactive. Correlate clinically. Dictated by: Yelena Belcher M.D. CT abdomen and pelvis without contrast Impression: 1. Multilobulated pelvic fluid collection status post colectomy. The most distal aspect of the fluid collection contains gas and appears to be in continuity with mildly prominent prostatic urethra. 2. Mild bilateral hydronephrosis and hydroureter status post ureteral diversion. Renal enlargement may be physiologic postop, though partial obstruction is not excluded. The ostomy appears to be unobstructed, although there may be stenosis at the ureteroenteric anastomosis. 3. There is mild pericolonic inflammation in the proximal sigmoid where it is adjacent to one of the pelvic fluid collection. This may be reactive or infectious colitis. 4. There is proximal colonic obstipation, likely from narcotic use. 5. Hepatosplenomegaly with hepatic morphology suggestive of cirrhosis. Spleen size has considerably increased compared to 03/24/2016 where it measured 16.9 cm in AP diameter, now 19.8 cm. 6. Paraesophageal, periceliac, periportal, periaortic, and pelvic adenopathy, worse since prior studies, potentially reactive but concerning for metastatic disease. Dictated by: Yelena Belcher M.D. Assessment & Plan Alexis Knutson is a 51-year-old man with past medical history significant for high- grade bladder urothelial carcinoma status post cystectomy and prostatectomy with ileal conduit who had a protracted stay for about a month in August 2016 with complications from his surgery including intractable pain difficult to control nausea who presented to the [facility] emergency department today due to a fall and subsequent dehiscence of his surgical wound today and was then tx to [facility] after CT Abd finding of Pelvic Fluid collection increase bilateral hydronephrosis suggesting possible partial obstruction, and obstipation. #Sepsis, present on admission, active- SIRS- criteria fever at [place] ED and white count of 14 on admit. Blood cultures from 09/30 have come back positive for gram-negative rods.Source is likely pelvic fluid collection. CT suggests possible Colitis. Consider Port infection, hx of MSSA from port. -CT Abd finding of Multilobulated Pelvic Fluid collection, increase bilateral hydronephrosis suggesting possible partial uretral obstruction, and Colonic obstipation. -Currently afebrile, WBC 14.3-13.5. Lactic acid 0.6. Procalictonin- 1.18. Started patient on Zosyn on morning of 10/01. -Pt started on IV fluids, monitor BP. -Given wound dehiscence and pelvic fluid collection patient may need to have this drained. -Consulted Urology, Dr. Brendon Mendoza-appreciate recommendations. Recommends CT- guided drainage. Wound dehiscence can be managed with wound care. Bilateral hydronephrosis is mild and not likely secondary to obstruction. -Discussed case with ID, Dr. Cameron, Agrees with initial antibiotic choice of Zosyn given gram-negative bacteremia. - Based on blood cultures for speciation and susceptibility, have switched to Levofloxacin. #High-grade bladder urothelial carcinoma status post colectomy and prostatectomy with ileal conduit, w/ wound dehiscence. -Urostomy care. Increased Adenopathy, may be reactive. -Patient's urologist Dr. Temple not in office. Have consulted Urology, Dr. Brendon Mendoza. - s/p Drain placement from pelvic fluid collection. #Ground-level fall, present on admission, active -Etiology unclear but patient's elevated white count is concerning for a recurrent infection. -We will monitor with telemetry. Unlikely secondary to conduction abnormality or cardiac problems. -Patient has noted some dizziness in the past that has occurred spontaneously. -Unlikely due to seizure. #Wound dehiscence secondary to fall, present on admission, active -Currently appears to be minimally dehisced. Exam was limited by patient's pain at this time. -Contacted urology/general surgery , see above -Dilaudid when necessary for pain - Wound Consult- working on wound clinic as OP. #Proximal Colonic Obstipation-present on admission, active -pt started on bowel regimen, consider Enema if no BM. #Acute on chronic pain, present on admission, active -Continue outpatient pain medications as recommended by palliative care -Consider consulting how to care for further pain management. Chronic Medical Issues- #Type II diabetes mellitus -Insulin requiring -We will continue with 50% of the patient's chronic dose. #Anxiety -Continue outpatient medications #Hypothyroidism -Continue levothyroxine CODE STATUS: Full code Patient is admitted under inpatient status with expected length of stay greater than 2 midnights due to severity of presenting symptoms, risk of adverse event, and complexity of treatment plan. Dispo- working on wound clinic as OP. VTE Prophylaxis: Sub-Q Heparin (Unfractionated) VTE Mechanical Devices: Intermittant Pneumatic CD Resuscitation Status: CPR: Attempt Resuscitation Leon Agudelo MD Oct 03, 2016 17:01
--- NOTE | 2016-10-03 18:35 | NUR ---
Pain / activity Pt consistently reports pain at 8/10; lowest score today was 6/10. Pt states he prefers the IVP Dilaudid and that the PO Dilaudid and Methadone only "help a little." Pt has flat affect and spoke quietly today. Did not ask any questions. Spoke only when asked a direct question. Pt was up with PT this a.m. but did not move much. Afterwards, pt said, "I'm not doing that (PT) tomorrow." Encouraged pt to increase his activity by moving while in bed. Pt had no response.
[2016-10-03] MEDS: LORazepam 0.5 mg Tablet PO PRN (20:36)
[2016-10-03] MEDS: Polyethylene Glycol (PEG) 17 Gm Powder PO PRN (21:19)
[2016-10-04] VITALS (10 sets, daily range): BP systolic 112–127; BP diastolic 68–79; PULSE 79–95; RESP 10–18; O2SAT 94–99
[2016-10-04] MEDS: HYDROmorphone 1 mg/mL Inj IVPUSH PRN ×8 (00:20→21:57)
--- NOTE | 2016-10-04 04:36 | NUR ---
Pain / wound care Pt continues to report significant pain; managing with scheduled Methadone and prn PO and IV Dilaudid. IV med used prior to abdominal dressing change, able to report pain at 5/10 even after change. Abdominal wound has moderate amount of sero-sang drainage, yellow strands in wound bed observed with dressing change. Other wounds show signs of healing, no s/s of infection. T-drain flushes without resistance. Pt able to sleep for some stretches in night, kept PO meds on a schedule for optimal pain control. Pulse oximetry in place, slowed respirations in sleep remained near 10-12/minute. Hourly rounding ongoing.
[2016-10-04 06:15] LABS: BASOPHILS % (AUTO) 0.3 % (0-3); EOSINOPHILS % (AUTO) 1.2 % (0-5); MONOCYTES % (AUTO) 7.6 % (4-12); Mean Corpuscular Hemoglobin 28.6 pg (27.0-35.0); Mean Corpuscular Volume 90.5 fL (81-100); NEUTROPHILS % (AUTO) 80.3 % (40-74); Platelet Count 252 bil/L (150-400)
[2016-10-04] MEDS: 0.9% Sodium Chloride 1,000 ML IV SCH ×2 (07:05→17:05)
[2016-10-04] MEDS: levoFLOXacin 750 mg Tablet PO SCH (09:01)
--- NOTE | 2016-10-04 10:01 | PROG NOTE ---
[address] [address] PROGRESS NOTE PATIENT: DIANA CROWELL : 1965 MR#: [id number] ADMIT: 09/30/2016 JOB ID: [id number] DATE: 10/04/2016 SUBJECTIVE: Postop distal prostatectomy with wound separation. The fascia is intact so there is not a dehiscence. At the present time we are waiting for wound VAC on Wednesday. OBJECTIVE: The drain into the pelvic fluid collection is producing less and less with 30 mL last shift. White count is down but still with significant left shift. Blood culture is positive for Klebsiella as was the urine culture. The fluid from the pelvic fluid collection showed no growth so it is likely this was a lymphocele rather than an abscess. PLAN: Discharge home after Wound Clinic consult on oral antibiotics.
[2016-10-04] MEDS: Insulin GLARgine 100 Unit/mL Syringe SUBQ SCH (11:42)
[2016-10-04] MEDS: LORazepam 0.5 mg Tablet PO PRN ×2 (13:09→19:34)
--- NOTE | 2016-10-04 13:31 | PCM.PNMED ---
Subjective Date of Service Oct 04, 2016 Subjective Pt had no overnight events. Drain output is still 50-100 cc per day. Exam Vital Signs Vital Sign - Last Date Time Temp Pulse Resp B/P Pulse Ox O2 Delivery O2 Flow Rate FiO2 10/04/16 12:38 36.8 79 18 117/68 98 Room Air Intake and Output 10/03/16 10/03/16 10/04/16 Cumulative From/Thru 15:00 23:00 07:00 09/30/16 20:17 - 10/04/16 06:11 Intake Total 1847 ml 622 ml 1272 ml 41365 ml Output Total 1850 ml 2330 ml 24582 ml Balance 1847 ml -1228 ml -1058 ml 2057 ml Intake Oral 622 ml 1272 ml 9626 ml IV Total 1847 ml 5256 ml Output Urine Total 1850 ml 2300 ml 70974 ml Drainage Total 30 ml 225 ml # Bowel Movements 0 Exam Gen: NAD, AOx4, Obese HEENT: NCAT, PERRLA, EOMI, MMM, sclera anicteric. Neck: Soft, supple, no thyromegaly/JVD/LAD. Resp: CTAB, no R/R/W. CV: S1 S2, RRR, No M/R/G Abd: Soft, (+) BS, NT/ND, no guarding/rebound/organomegaly. Dressing is clean and dry over surgical site, was able to look at wound which looks minimally dehisced. Drain site- c/d/i Ext: +PP, No edema. Skin: warm/dry/intact Neuro/Psych: Cooperative, appr mood/affect. CN II-XII grossly intact. No focal deficits Lab and Diagnostics Result Diagram: 10/04/16 0451 10/04/16 0451 Microbiology CHANO CULTURE BLOOD Preliminary 10/01/16-1151 Organism 1 POSITIVE BLOOD CULTURE GRAM STAIN RESULT GRAM NEGATIVE RODS BC BOTTLE Isolated from Anaerobic Bottle of Set Drawn DATE CALLED: 10/01/16 TIME CALLED: 1149 CALLED BY: LENA FLOOR/DOCTOR: SOULEYMANE Rod BC READ BACK Y TYPE OF DRAW PERIPHERAL DRAW TIME OF POSITIVITY 1118 Microbiology 09/30/16 Blood Culture, Received Pending X-Rays, CTs and MRIs CT head without contrast Impression: 1. No CT evidence of acute intracranial process. Dictated by: Yelena R Ye, M.D. CT cervical spine without contrast Impression: 1. No CT evidence of acute trauma. 2. Mild degenerative endplate changes at C5 and C6. 3. Left posterior cervical chain lymph node, probably reactive. Correlate clinically. Dictated by: Yelena Belcher M.D. CT abdomen and pelvis without contrast Impression: 1. Multilobulated pelvic fluid collection status post colectomy. The most distal aspect of the fluid collection contains gas and appears to be in continuity with mildly prominent prostatic urethra. 2. Mild bilateral hydronephrosis and hydroureter status post ureteral diversion. Renal enlargement may be physiologic postop, though partial obstruction is not excluded. The ostomy appears to be unobstructed, although there may be stenosis at the ureteroenteric anastomosis. 3. There is mild pericolonic inflammation in the proximal sigmoid where it is adjacent to one of the pelvic fluid collection. This may be reactive or infectious colitis. 4. There is proximal colonic obstipation, likely from narcotic use. 5. Hepatosplenomegaly with hepatic morphology suggestive of cirrhosis. Spleen size has considerably increased compared to 03/24/2016 where it measured 16.9 cm in AP diameter, now 19.8 cm. 6. Paraesophageal, periceliac, periportal, periaortic, and pelvic adenopathy, worse since prior studies, potentially reactive but concerning for metastatic disease. Dictated by: Yelena Belcher M.D. Assessment & Plan Alexis Knutson is a 51-year-old man with past medical history significant for high- grade bladder urothelial carcinoma status post cystectomy and prostatectomy with ileal conduit who had a protracted stay for about a month in August 2016 with complications from his surgery including intractable pain difficult to control nausea who presented to the [facility] emergency department today due to a fall and subsequent dehiscence of his surgical wound today and was then tx to [facility] after CT Abd finding of Pelvic Fluid collection increase bilateral hydronephrosis suggesting possible partial obstruction, and obstipation. #Sepsis, present on admission, active- SIRS- criteria fever at [place] ED and white count of 14 on admit. Blood cultures from 09/30 have come back positive for gram-negative rods.Source is likely pelvic fluid collection. CT suggests possible Colitis. Consider Port infection, hx of MSSA from port. -CT Abd finding of Multilobulated Pelvic Fluid collection, increase bilateral hydronephrosis suggesting possible partial uretral obstruction, and Colonic obstipation. -Currently afebrile, WBC 14.3-13.5. Lactic acid 0.6. Procalictonin- 1.18. Started patient on Zosyn on morning of 10/01. -Consulted Urology, Dr. Brendon Mendoza-appreciate recommendations. Recommends CT- guided drainage. Wound dehiscence can be managed with wound care. Bilateral hydronephrosis is mild and not likely secondary to obstruction. -Discussed case with ID, Dr. Cameron, Agrees with initial antibiotic choice of Zosyn given gram-negative bacteremia. - Based on blood cultures for speciation and susceptibility, have switched to PO Levofloxacin. #High-grade bladder urothelial carcinoma status post colectomy and prostatectomy with ileal conduit, w/ wound dehiscence. -Urostomy care. Increased Adenopathy, may be reactive. -Patient's urologist Dr. Temple not in office. Have consulted Urology, Dr. Brendon Mendoza. - s/p Drain placement from pelvic fluid collection. - Surg following f/u recs. Wound Clinic Consult pending, once completed can d/c on PO Abx. - Monitor Drain output. #Ground-level fall, present on admission, active -Etiology unclear but patient's elevated white count is concerning for a recurrent infection. -We will monitor with telemetry. Unlikely secondary to conduction abnormality or cardiac problems. -Patient has noted some dizziness in the past that has occurred spontaneously. -Unlikely due to seizure. #Proximal Colonic Obstipation-present on admission, active -pt started on bowel regimen, consider Enema if no BM. #Acute on chronic pain, present on admission, active -Continue outpatient pain medications as recommended by palliative care -Consider consulting how to care for further pain management. Chronic Medical Issues- #Type II diabetes mellitus -Insulin requiring -We will continue with 50% of the patient's chronic dose. #Anxiety -Continue outpatient medications #Hypothyroidism -Continue levothyroxine CODE STATUS: Full code Patient is admitted under inpatient status with expected length of stay greater than 2 midnights due to severity of presenting symptoms, risk of adverse event, and complexity of treatment plan. Dispo- working on wound clinic as OP. VTE Prophylaxis: Sub-Q Heparin (Unfractionated) VTE Mechanical Devices: Intermittant Pneumatic CD Resuscitation Status: CPR: Attempt Resuscitation Leon Agudelo MD Oct 04, 2016 13:31
--- NOTE | 2016-10-04 16:02 | NUR ---
Social Work-Continued D/C Planning/ Multidisciplinary Rounds Data: EMR reviewed. Pt is on day 4 of [facility]. Pt discussed in rounds. PT to work with pt today. SW unable to see pt today due to high census. SW will continue to follow pt for possible SNF eligibility for wound care and PT. It is unknown if pt will be willing to go to SNF or participate in daily PT. Pt will require auth from insurance. SW will continue to follow. Assessment: Pt who may benefit from SNF placement for wound care needs and continued PT Plan: SW will follow pt for discharge home with [facility] or SNF for wound care and PT. It is unknown if pt will be willing to go to SNF or participate in daily PT. Pt will require auth from insurance. SW will continue to follow. ANGEL Elaine
--- NOTE | 2016-10-04 19:48 | NUR ---
Pain/Anxiety/Activity/Dressing Changes Pt c/o pain today 10/22, unable to get down to 5 which is tolerable with 8mg PO Dilaudid and 1-2mg IV Dilaudid. Pt up today with PT; pretreated with 2mg IV Dilaudid and .5mg PO Ativan. Up with FWW and SBA to bathroom and tolerated shower today; Mepilex replaced on L sacrum, R elbow and dressing change to abdomen wet to dry with ABD and Hypafix tape to cover; T drain flushed with 10ml saline. Will continue to monitor with frequent rounds.
[2016-10-05 01:00] VITALS: BP 118/74; PULSE 80; RESP 16; O2SAT 97
[2016-10-05] MEDS: 0.9% Sodium Chloride 1,000 ML IV SCH ×3 (03:05→21:06)
--- NOTE | 2016-10-05 04:50 | NUR ---
pain/dressing changes pt had pain 8/10 in his abdomen that was reduced to a tolerable level of 5/10 as long as nurse kept on giving pt the PO dilaudid every 3 hrs. pt states if he gets behind on pain meds that is when its uncontrolled. he was also given 2mg of IV dilaudid before his abdominal dressing change. pts changed the abdominal dressing with direction from the nurse. she also changed pts urostomy appliance. pt has been sleeping in between doses of dilaudid of appears comfortable. t-drain was flushed without resistance. bed in low position, call light within reach. care continues.
[2016-10-05 05:21] VITALS: BP 117/74; PULSE 82; RESP 16; O2SAT 96
[2016-10-05] MEDS: levoFLOXacin 750 mg Tablet PO SCH (07:55)
[2016-10-05 08:20] LABS: BASOPHILS % (AUTO) 0.1 % (0-3); EOSINOPHILS % (AUTO) 1.8 % (0-5); MONOCYTES % (AUTO) 7.9 % (4-12); Mean Corpuscular Hemoglobin 28.4 pg (27.0-35.0); Mean Corpuscular Volume 90.5 fL (81-100); NEUTROPHILS % (AUTO) 80.7 % (40-74); Platelet Count 276 bil/L (150-400)
[2016-10-05 08:35] VITALS: BP 124/76; PULSE 83; RESP 16; O2SAT 97
--- NOTE | 2016-10-05 10:25 | PCM.PNMED ---
Subjective Date of Service Oct 05, 2016 Subjective Pt says pain is controlled with PO Dilaudid. Exam Vital Signs Vital Sign - Last Date Time Temp Pulse Resp B/P Pulse Ox O2 Delivery O2 Flow Rate FiO2 10/05/16 05:21 36.6 82 16 117/74 96 Room Air Intake and Output 10/04/16 10/04/16 10/05/16 Cumulative From/Thru 15:00 23:00 07:00 09/30/16 20:17 - 10/05/16 05:21 Intake Total 1394 ml 400 ml 34629 ml Output Total 1750 ml 600 ml 36856 ml Balance -356 ml -200 ml 1501 ml Intake Oral 1394 ml 400 ml 95563 ml IV Total 5256 ml Output Urine Total 1700 ml 600 ml 29511 ml Drainage Total 50 ml 275 ml # Bowel Movements 0 0 Exam Gen: NAD, AOx4, Obese HEENT: NCAT, PERRLA, EOMI, MMM, sclera anicteric. Neck: Soft, supple, no thyromegaly/JVD/LAD. Resp: CTAB, no R/R/W. CV: S1 S2, RRR, No M/R/G Abd: Soft, (+) BS, NT/ND, no guarding/rebound/organomegaly. Dressing is clean and dry over surgical site. Wound separation. Drain site- c/d/i Ext: +PP, No edema. Skin: warm/dry/intact Neuro/Psych: Cooperative, appr mood/affect. CN II-XII grossly intact. No focal deficits IVs and Medications Medications Reviewed: Medications were reviewed in detail Lab and Diagnostics Result Diagram: 10/05/16 0800 10/05/16 0800 Microbiology CHANO CULTURE BLOOD Preliminary 10/01/16-1151 Organism 1 POSITIVE BLOOD CULTURE GRAM STAIN RESULT GRAM NEGATIVE RODS BC BOTTLE Isolated from Anaerobic Bottle of Set Drawn DATE CALLED: 10/01/16 TIME CALLED: 1149 CALLED BY: LENA FLOOR/DOCTOR: SOULEYMANE MIRELES READ BACK Y TYPE OF DRAW PERIPHERAL DRAW TIME OF POSITIVITY 1118 Microbiology 09/30/16 Blood Culture, Received Pending X-Rays, CTs and MRIs CT head without contrast Impression: 1. No CT evidence of acute intracranial process. Dictated by: Yelena Belcher M.D. CT cervical spine without contrast Impression: 1. No CT evidence of acute trauma. 2. Mild degenerative endplate changes at C5 and C6. 3. Left posterior cervical chain lymph node, probably reactive. Correlate clinically. Dictated by: Yelena Belcher M.D. CT abdomen and pelvis without contrast Impression: 1. Multilobulated pelvic fluid collection status post colectomy. The most distal aspect of the fluid collection contains gas and appears to be in continuity with mildly prominent prostatic urethra. 2. Mild bilateral hydronephrosis and hydroureter status post ureteral diversion. Renal enlargement may be physiologic postop, though partial obstruction is not excluded. The ostomy appears to be unobstructed, although there may be stenosis at the ureteroenteric anastomosis. 3. There is mild pericolonic inflammation in the proximal sigmoid where it is adjacent to one of the pelvic fluid collection. This may be reactive or infectious colitis. 4. There is proximal colonic obstipation, likely from narcotic use. 5. Hepatosplenomegaly with hepatic morphology suggestive of cirrhosis. Spleen size has considerably increased compared to 03/24/2016 where it measured 16.9 cm in AP diameter, now 19.8 cm. 6. Paraesophageal, periceliac, periportal, periaortic, and pelvic adenopathy, worse since prior studies, potentially reactive but concerning for metastatic disease. Dictated by: Yelena Belcher M.D. Assessment & Plan Alexis Knutson is a 51-year-old man with past medical history significant for high- grade bladder urothelial carcinoma status post cystectomy and prostatectomy with ileal conduit who had a protracted stay for about a month in August 2016 with complications from his surgery including intractable pain difficult to control nausea who presented to the [facility] emergency department today due to a fall and subsequent dehiscence of his surgical wound today and was then tx to [facility] after CT Abd finding of Pelvic Fluid collection increase bilateral hydronephrosis suggesting possible partial obstruction, and obstipation. #Sepsis, present on admission, active- SIRS- criteria fever at [facility] and white count of 14 on admit. Blood cultures from 09/30 have come back positive for gram-negative rods.Source is likely pelvic fluid collection. CT suggests possible Colitis. Consider Port infection, hx of MSSA from port. -CT Abd finding of Multilobulated Pelvic Fluid collection, increase bilateral hydronephrosis suggesting possible partial uretral obstruction, and Colonic obstipation. -Currently afebrile, WBC 14.3-13.5. Lactic acid 0.6. Procalictonin- 1.18. Started patient on Zosyn on morning of 10/01. -Consulted Urology, Dr. Brendon Mendoza-appreciate recommendations. Recommends CT- guided drainage. Wound dehiscence can be managed with wound care. Bilateral hydronephrosis is mild and not likely secondary to obstruction. -Discussed case with ID, Dr. Cameron, Agrees with initial antibiotic choice of Zosyn given gram-negative bacteremia. - Based on blood cultures for S&S E Coli, have switched to PO Levofloxacin for 14 days total until Oct 14. #High-grade bladder urothelial carcinoma status post colectomy and prostatectomy with ileal conduit, w/ wound separation. Wound Eval- Fascia is intact so there is not a dehiscence. -Urostomy care. Increased Adenopathy, may be reactive. -Patient's urologist Dr. Temple not in office. Have consulted Urology, Dr. Brendon Mendoza. - s/p Drain placement from pelvic fluid collection. - Surg following f/u recs. - Monitor Drain output. - Wound Consulted to eval for placement of Wound Vac - Will request increase of Home Health Nurse to 5 days per week. #Type II diabetes mellitus -Insulin requiring -Pt has Home Levemir at 65u, pt has been hypoglycemic during admission and the dose of Lantus has been cut back to 2O units. Check fingersticks before meals and nightly and can increase back to home dose as his blood sugars increase. #Ground-level fall, present on admission, active- likely mechanical. -We will monitor with telemetry. Unlikely secondary to conduction abnormality or cardiac problems. -Patient has noted some dizziness in the past that has occurred spontaneously. -Unlikely due to seizure. #Proximal Colonic Obstipation-present on admission, resolved. -pt started on bowel regimen, consider Enema if no BM. #Acute on chronic pain, present on admission, active -Continue outpatient pain medications as recommended by palliative care -Consider consulting how to care for further pain management. - Palliative saw pt. Chronic Medical Issues- #Anxiety -Continue outpatient medications #Hypothyroidism -Continue levothyroxine CODE STATUS: Full code Patient is admitted under inpatient status with expected length of stay greater than 2 midnights due to severity of presenting symptoms, risk of adverse event, and complexity of treatment plan. Dispo- working on wound clinic as OP. - PO Levofloxacin for 14 days total until Oct 14. - Will request increase of Home Health Nurse to 5 days per week. - Home dose of Levemir at 65u, pt has been hypoglycemic during admission and the dose of Lantus has been cut back to 2O units. Check fingersticks before meals and nightly and can increase back to home dose as his blood sugars increase. - Follow up with your Urologist,Dr. Fisher in 1 week. Pain Evaluation: Adequate Pain Control VTE Prophylaxis: Sub-Q Heparin (Unfractionated) VTE Mechanical Devices: Intermittant Pneumatic CD Resuscitation Status: CPR: Attempt Resuscitation Leon Agudelo MD Oct 05, 2016 10:25
[2016-10-05] MEDS: LORazepam 0.5 mg Tablet PO PRN (10:37)
[2016-10-05] MEDS: Insulin GLARgine 100 Unit/mL Syringe SUBQ SCH (10:43)
--- NOTE | 2016-10-05 10:55 | PCM.DIMED ---
Discharge Instructions Date of Service Oct 05, 2016 Dates of Hospitalization Sep 30, 2016 at 19:52 Discharge Diagnosis Discharge Diagnosis #Sepsis, present on admission, active- SIRS- criteria fever at [facility] and white count of 14 on admit. Blood cultures from 09/30 have come back positive for gram-negative rods.Source is likely #High-grade bladder urothelial carcinoma status post colectomy and prostatectomy with ileal conduit, w/ wound separation #Type II diabetes mellitus #Ground-level fall, present on admission, active- likely mechanical. #Acute on chronic pain, present on admission, active #Anxiety #Hypothyroidism Medication Instructions Additional med instructions - PO Levofloxacin and Flaygl for 14 days total until Oct 14. - Home dose of Levemir at 65u, due to hypoglycemia during admission the dose of your long acting insulin been cut back to 2O units to start and can increase per your PCP. Diet Discharge Diet: Diabetic Activity Discharge Activity: Home Health Phyical Therapy Call your provider Call your provider for: Fever or Chills Patient Instructions Patient Instructions - Check fingersticks before meals and nightly. For the first night take 10 units in the evening. Can start 20 units the following evening. Use increased sliding scale the first night if elevated blood sugars. Can increase evening dose by 5 units if morning blood sugars are consistently elevated. - Follow up with your Urologist,Dr. Fisher in 1-2 weeks. - Please get Thyroid function tests done in 6 weeks. You TSH in hospital was very high (30.120). This reading may not be accurate so need to repeat once illness has resolved. - Will request increase of Home Health Nurse to 5 days per week. Follow-up Provider: Fausto Salvador MD Follow-up with PCP in: 1 week Provider: Haven Fisher MD Follow-up in: 1 week Leon Agudelo MD Oct 05, 2016 10:55
--- NOTE | 2016-10-05 11:50 | NUR ---
Inpatient Wound Nurse Patient seen for application of NPWT. Abdominal incision wound measures 9 cm L x 7.5 cm W x 2 cm D at wound base; tunnel at 3 o'clock measures 4 cm D and tunnel at 12 o'clock measures 6 cm D. After conservative sharp debridement of stringy black, brown, red, and yellow slough, 25% remained in wound bed, well-adhered; otherwise, wound bed is beefy red and granulating. Undermining of entire wound bed, otherwise edges well adhered. Periwound warm and pink; Patient complained of pain, declined giving 0-10 scale, stated, "not too bad right now." NPWT applied at 100 suction, no leaks detected. Patient stated that he was comfortable. Coccygeal pressure ulcer 0.5 cm L x 0.75 cm W x 0.1 cm D, covered in 25% well adhered, soft, yellow slough, remaining tissue beefy red and granulating. Edges well adhered, no tunneling or undermining. Erythemic halo has mostly resolved. Wound was cleansed and covered with bordered Mepilex. Stage 1 pressure ulcer noted at mid thoracic spine where draw sheet had wrinkled under patient's skin. 2 cm L x 20 cm W, dark red, non-blanchable, tender to touch. Patient repositioned in modified side-lying position, instructed to reposition frequently.
[2016-10-05 13:48] VITALS: BP 124/76; PULSE 84; RESP 16; O2SAT 98
--- NOTE | 2016-10-05 14:05 | NUR ---
Social Work: Readiness for Discharge/Continued Discharge Planning/Multi-Disciplinary Rounds D: EMR reviewed. Pt is on day 5 of hospitalization. Per rounds, pt will need to increase RN up to 5x per week for wound vac care. SHANNAN requested MD to complete F2F with new RN needs - MD completed and pt to go back to [facility] with PT 2x/week and RN 5x/week. SW received MD order and F2F. SW to fax to [facility] at discharge. Pt's discharge pending home wound vac authorization from Wound Care. SW will continue to follow. A: Pt for whom a home Wound Vac and HH RN x5 PT x2 have been deemed medically necessary. P: Pt to discharge home with spouse via POV likely tomorrow. SW to fax F2F and discharge orders to [facility] at discharge. Pt to discharge with home Wound Vac. Per MD. wound vac is being authorized by [facility]. SW will continue to follow. ANGEL Shelley
--- NOTE | 2016-10-05 15:22 | PCM.PNSURG ---
Subjective Date of Service: Oct 05, 2016 Date of Service: Oct 05, 2016 Visit Information: Reason for Visit Dehiss S/P Fall, S/P Cystectomy, Dm Surgery/Surgery Date ABSCESS DRAINAGE 10/02/16 Post-Op Day # Date of Admission: Sep 30, 2016 at 19:52 Hospital Day # Subjective: Mr Knutson states he is doing ok overall. His pain is controlled. He has poor appetite, which he notes is chronic since undergoing chemotx. Postop General: No Complaints Objective Vital Sign- Last 8 Hours Date Time Temp Pulse Resp B/P Pulse Ox O2 Delivery O2 Flow Rate FiO2 10/05/16 13:48 36.5 84 16 124/76 98 Room Air 10/05/16 08:35 36.7 83 16 124/76 97 Room Air Intake and Output- Last 8 Hour 10/05/16 Cumulative From/Thru 07:00 09/30/16 20:17 - 10/05/16 05:21 Intake Total 400 ml 35633 ml Output Total 600 ml 96180 ml Balance -200 ml 1501 ml Intake Oral 400 ml 37529 ml IV Total 5256 ml Output Urine Total 600 ml 95410 ml Drainage Total 275 ml # Bowel Movements 0 0 Abdomen: Benign, Soft, Other (urostomy is pink and healthy appearing, draining clear, very light yellow tinged urine; wound vac is applied) Neuro: Cranial Nerves 2-12 nl Result Diagram: 10/05/16 0800 10/05/16 0800 Assessment & Plan Impression Lymphocele and wound separation Problems: Plan I have no new recommendations at this time. - Wound vac is applied - Continue local wound care We discussed nutrition. VTE Prophylaxis: Sub-Q Heparin (Unfractionated) Resuscitation Status: CPR: Attempt Resuscitation Haven Fisher MD Oct 05, 2016 15:22
--- NOTE | 2016-10-05 15:24 | NUR ---
Palliative care note D/A: Case discussed in PC rounds. It was noted that Wound Care has a clinic at [place] and that [place] of [place] in [facility]. Phone call to jesús Crowell to discuss. She is aware and will work on wound care arrangements on 10/06/16. P: Palliative care to follow. Leticia HENSON, CCM
--- NOTE | 2016-10-05 15:45 | NUR ---
Home Wound Vac Auth Submitted An order was sent to [facility] for patient to have a home wound vac authorized upon discharge. I have marked the order stat and will let patients nurse and the wound care nurse Emiliana know as soon as I get the approval.
[2016-10-05 18:09] VITALS: BP 114/73; PULSE 81; RESP 16; O2SAT 99
[2016-10-05 20:00] VITALS: BP 116/72; PULSE 82; PULSE 83; RESP 17; O2SAT 97
--- NOTE | 2016-10-05 20:10 | PCM.PALLBR ---
Palliative Care Recommendation Summary of palliative recommendations: 10/05/16- Pain-Would like to give gabapentin a try again and see if indeed it was the cause of edema or if that related to lady-op fluid shifts. Will restart gabapentin at 300 mg BID 3 days and then TID and monitor edema-- if recures--will d/c Would like him to go home on methadone 15 mg TID, HM 4-8 mg Q 3 PRN Would like to see back for OP PC in 2-3 weeks depending on sx. Hypothyroidism-Will increase his levothyr to 125 mcg--due for TSH f/u in 2-3 months Syncope-presumed due to abscess with normal QT interval Anxiety- Encourage minimizing use of lorazepam PTSD- has yet to start prazosin but could in the near future. 10/02/16-Pain-now complicated with abscess- drained. Decreasing methadone but no evidence that this was cause of his syncope so it seems reasonable to increase due to medical issues and taper later. Will increase methadone to 17.5 mg TID and continue his hydromorphone dosing. If his pain worsens-would advise increasing to 20 mg TID. Syncope-at this point suspect due to abscess and not dysrhythmia. Wound-complication with abscess. Anxiety-has lorazepam ordered. Hypothyroidism-TSH last admit 63. Dose increased approx 3-4 weeks ago. Will recheck TSH, T4 even though bit early. -Symptom management (Pain/other) Syncope- ECG checked and QT 44-well within normal range. Still concerned for possible dysrhythmia.Consider 24 hour monitor check orthostatic BP/P when stable enough to do that. Pain-has had significant narcotic requirements. Will try to drop his methadone down to 15 mg TID with HM 8 mg PO or 1-2 IV Q 3 PRN. His gabapentin was d/brenda due to edema- unclear if related Anxiety--tends to be bigger issue when in hospital Wound dehiscence-defer to surg/urology. Chronic pain syndrome. -DPOA/Advanced Directives/POLST-FULL CODE -Family/emotional support- superb support from his Sherly - Problems: End of Life Preferences full code Goals of Care Hopes for full recovery Disposition Home or short stay in SNF Resuscitation Status Resuscitation Status: CPR: Attempt Resuscitation . Symptom management: Anxiety, Pain Total time 35 minutes; >50% face to face with patient and/or family, providing counselling regarding plans and recommendations, and in care coordination with his/her medical teams. I also spent an additional [ ] minutes counseling for advanced care planning with the patient/the patients family/the surrogate decision maker. copies to: Haven Fisher MD; Fausto Salvador MD Palliative Brief Note Date of Service Oct 05, [address] Devin Moore DO R3 Alexis identifies pain as tolerable but later in day lists it as 8/10. Sleeping through parts of the day. Did say that getting up with PT and taking shower over the weekend was OK and did not increase his pain. Continues on his HM 8 mg Q 3--continues on methadone 17.5 TID BM 1-2 days ago. Appetite +/- O: no edema, mentation wnl, engaged but nsg states not engaged until now. TSH 30 Ethel Romero MD Oct 05, 2016 20:10
[2016-10-05] MEDS: Polyethylene Glycol (PEG) 17 Gm Powder PO PRN (21:05)
[2016-10-06 00:12] VITALS: BP 110/69; PULSE 88; RESP 17; O2SAT 98
--- NOTE | 2016-10-06 04:14 | NUR ---
Pain Well controlled with only PO meds every 3 hours prn. Wound vac holding good seal; education related to wound care and wound vac done with pt and . Hourly rounding ongoing.
[2016-10-06 05:30] VITALS: BP_SYST 112; BP_SYST 131; BP_DIAS 72; BP_DIAS 74; PULSE 72; PULSE 86; RESP 17; RESP 18; O2SAT 96; O2SAT 97
[2016-10-06] MEDS ORDERED: Insulin GLARgine 100 Unit/mL Syringe SUBQ SCH (08:30)
[2016-10-06 08:37] VITALS: BP 109/71; PULSE 83; RESP 16; O2SAT 96
[2016-10-06] MEDS: levoFLOXacin 750 mg Tablet PO SCH (08:39)
[2016-10-06] MEDS: Ondansetron 2 mg/mL 2 mL Inj IVPUSH PRN (08:56)
[2016-10-06] MEDS: 0.9% Sodium Chloride 1,000 ML IV SCH (09:05)
[2016-10-06] MEDS: Insulin GLARgine 100 Unit/mL Syringe SUBQ SCH (09:30)
[2016-10-06 10:12] VITALS: PULSE 86
[2016-10-06] MEDS ORDERED: LEVO125T6 PO (10:58)
[2016-10-06] MEDS ORDERED: LEVO750T9 PO (10:58)
[2016-10-06] MEDS ORDERED: INSU100V7 SUBQ (10:58)
--- NOTE | 2016-10-06 11:07 | PCM.PALLBR ---
Palliative Care Recommendation Summary of palliative recommendations: 10/06/16: Going home today on following meds: 1. Methadone 15 po TID 2. Gabapentin 300mg TID- knows to watch for edema and d/c if it recurs 3. Has not used IV hydromorphone in over 48hours. Probably won't use a breakthrough medication at home either. 4. Should go home on levothyroxine 125mcg po q day with TSH check in 2 months. 10/05/16- Pain-Would like to give gabapentin a try again and see if indeed it was the cause of edema or if that related to lady-op fluid shifts. Will restart gabapentin at 300 mg BID 3 days and then TID and monitor edema-- if recurs--will d/c Would like him to go home on methadone 15 mg TID, HM 4-8 mg Q 3 PRN Would like to see back for OP PC in 2-3 weeks depending on sx. Hypothyroidism-Will increase his levothyr to 125 mcg--due for TSH f/u in 2-3 months Syncope-presumed due to abscess with normal QT interval Anxiety- Encourage minimizing use of lorazepam PTSD- has yet to start prazosin but could in the near future. 10/02/16-Pain-now complicated with abscess- drained. Decreasing methadone but no evidence that this was cause of his syncope so it seems reasonable to increase due to medical issues and taper later. Will increase methadone to 17.5 mg TID and continue his hydromorphone dosing. If his pain worsens-would advise increasing to 20 mg TID. Syncope-at this point suspect due to abscess and not dysrhythmia. Wound-complication with abscess. Anxiety-has lorazepam ordered. Hypothyroidism-TSH last admit 63. Dose increased approx 3-4 weeks ago. Will recheck TSH, T4 even though bit early. -Symptom management (Pain/other) Syncope- ECG checked and QT 44-well within normal range. Still concerned for possible dysrhythmia.Consider 24 hour monitor check orthostatic BP/P when stable enough to do that. Pain-has had significant narcotic requirements. Will try to drop his methadone down to 15 mg TID with HM 8 mg PO or 1-2 IV Q 3 PRN. His gabapentin was d/brenda due to edema- unclear if related Anxiety--tends to be bigger issue when in hospital Wound dehiscence-defer to surg/urology. Chronic pain syndrome. -DPOA/Advanced Directives/POLST-FULL CODE -Family/emotional support- superb support from his Sherly - Problems: End of Life Preferences full code Goals of Care Hopes for full recovery Disposition Home or short stay in SNF Resuscitation Status Resuscitation Status: CPR: Attempt Resuscitation Total time 20 minutes; >50% face to face with patient and/or family, providing counselling regarding plans and recommendations, and in care coordination with his/her medical teams. Palliative Brief Note Date of Service Oct 06, 2016 . Alexis identifies pain is well controlled. Eager to go home today. His methadone has been changed to 15 po TID with gabapentin 300mg po TID for discharge home. Continues on his HM 8 mg Q 3 O: no edema, mentation wnl, interacts appropriately, makes eye contact, friendly. 10/02 labs: TSH 30, free T4 0.68 No BM recorded in last 6 days. He reports one 2 days ago. Princess Garcia MD Oct 06, 2016 11:07
--- NOTE | 2016-10-06 11:21 | NUR ---
Social Work- Discharge/Multidisciplinary Rounds Data: EMR reviewed. Pt is on day 6 of hospitalization. Pt discussed in rounds, pt is medically ready to discharge today. Discharge orders are not active. Per MD, pt will have wound VAC at home and will need Wound Care follow up. Per Palliative Care, pt would like his wound care to be done at [facility] because it is closer to his home. Pt's to receive HH services through [facility]. SHANNAN will fax completed F2F and discharge orders when written. SHANNAN met with pt at bedside regarding discharge plan. Pt has his [facility] wound VAC at bedside and confirmed that he would like to have his wound care at [place]. SHANNAN placed telephone call to Amada at [facility] who states that pt does not currently have anything scheduled at [facility]. Amada is not able to schedule wound care at [place]. SHANNAN placed call to Inpt Wound Therapy regarding discharge plan. Emiliana Vaz confirms that pt is able to do [facility] and will need follow up by Mon/ of next week. Emiliana states that pt's HH RN should be able to assist pt with changing the wound VAC Wednesday or . T/C to Justin at [facility] regarding RN schedule. Justin states that [facility]N would be able to come out on . Justin requests that pt's wound care schedule be . Emiliana updated and agreeable. T/C to Sherly regarding discharge plan. Sherly is agreeable to discharge plan and plans on picking pt up this evening after work. T/C to Tosin at [facility] regarding setting up appointment. Tosin requests clinicals and SW requested POPULATION HEALTH MANAGER send over all records. Tosin will tentatively schedule pt for next week but will contact SUBMARINE ELEMENT COORDINATOR regarding confirmation of time. updated of plan and is agreeable. SW will continue to follow. Assessment: Pt who medically requires outpt Wound Care and HHRN and PT for wound care and strengthening. Plan: SW pushing clinicals to [facility] and awaiting confirmation of wound care appointment. Pt to discharge home with HH through [facility] RN PT and outpt wound care. All updated and agreeable to plan. SW will continue to follow. ANGEL Elaine Addendum: 10/06/16 at 1629 by BEE PERALTA SS Expanded Duty Dental Assistant confirmed that referral was faxed to [facility] [facility]. Appt scheduled for WednesdayOctober 12 at 1:30 pm. Information entered in discharge instructions by [facility]. Abel and d/c orders faxed to [facility]. Abel placed in hard chart. No additional discharge needs. ANGEL Elaine
--- NOTE | 2016-10-06 11:32 | PCM.DIMED ---
Discharge Instructions Date of Service Oct 06, 2016 Dates of Hospitalization Sep 30, 2016 at 19:52 Discharge Diagnosis Discharge Diagnosis # Acute sepsis, present on admission (SIRS- criteria fever at [facility] and white count of 14 on admit). - Blood cultures from 09/30/16 growing Klebsiella Pneumoniae # Acute pelvic abscess (Klebsiella Pneumoniae, Pseudomonas Aeruginosa, Bacteroides Fragilis), present on admission. # Acute urinary tract infection (Klebsiella Pneumoniae), present on admission. # Acute bacteria (Klebsiella Pneumoniae), present on admission. # High-grade bladder urothelial carcinoma status post colectomy and prostatectomy with ileal conduit post ground level fall prior to this admission with resulting dehiscence of the wound. - Post wound-vac placement # Chronic Type II diabetes mellitus # Ground-level fall, present on admission, active- likely mechanical. # Chronic Anxiety # Chronic Hypothyroidism. Likely acute exacerbation, present on admission. # History of bladder cancer diagnosed June 2016, status post four cycles of chemo and status post definitive cystoprostatectomy on August 31, 2016 # Status post placement of a port on June 17, 2016 which was subsequently removed in August because it was infected with MSSA. Medication Instructions Additional med instructions Home dose of Levemir at 65u, due to hypoglycemia during admission the dose of your long acting insulin been cut back to 2O units to start and can increase per your PCP. Diet Discharge Diet: Diabetic Activity Discharge Activity: Home Health Phyical Therapy Call your provider Call your provider for: Fever or Chills Patient Instructions Patient Instructions Seek immediate medical attention if any new or worsening signs or symptoms occur. Increase Home Health Nursing to 5 days per week. Home health nursing to flush the abdominal wound drain with 10-20 cc of normal saline twice daily Will need to followup with interventional radiology around 10/12/16 to reassess the wound drain and consideration of removing it at that time. This followup should be setup either by your primary care provider, urology or by the wound care clinic. Follow-up plan 1. Followup with primary care provider in 2-4 days - Further titration of insulin and management of diabetes - Further followup and management of hypothyroidism - Further followup and management of the wound as outpatient 2. Followup at wound care as scheduled. 3. Follow up with urology (Dr. Fisher) in 1-2 weeks. Follow-up Provider: Fausto Salvador MD Provider: Haven Fisher MD, Masoud Oct 06, 2016 11:32
[2016-10-06 12:27] VITALS: BP 112/71; PULSE 82; RESP 16; O2SAT 97
--- NOTE | 2016-10-06 12:55 | NUR ---
Palliative care note D/A: Pt discussed today in PC and dispo rounds. Have noted need for wound care to be [place] at [place]. Phone call to Sherly, pt spouse. Have scheduled pt for follow up with [facility] on 10/13/16 at 2:00. Have informed Mendy Garcia RN (nurse bakery team leader) who will put on pt dc instructions. P: Palliative care to follow as needed. Leticia HENSON,CCM
--- NOTE | 2016-10-06 14:37 | NUR ---
Faxed discharge to Sirena at [facility] [phone]
--- NOTE | 2016-10-06 14:38 | PATH ---
SURGICAL PATHOLOGY Attending Physician:Brendon Mendoza MD CASE STATUS: Signed Out PATIENT NAME: DIANA CROWELL PID: [id number] : 1965 DATE COLLECTED:10/02/2016 00:00 SPECIMEN: Peritoneal Fluid CLINICAL HISTORY: Peritoneal Fluid ICD-10 code not given FINAL DIAGNOSIS: Peritoneal Fluid Cytology Specimen (Cell Block and Cytospin): Negative for malignant cells. Cells present include large numbers of inflammatory cells admixed with benign appearing mesothelial cells. ICD10: R18.8 GROSS DESCRIPTION: Received fresh on 10/05/2016 is approximately 3 cc of cloudy yellow fluid. Prepared are one cell block and one Cytospin slide. Vo ICD-9 CODES: CPT CODES: 1: 70741, 07709 Electronically Signed Out Michale Saenz MD [facility] Pathology [facility] [address], [place] [address] Technical component performed at [facility], [facility], [facility] [address], [place], [address]
[2016-10-06] MEDS: LORazepam 0.5 mg Tablet PO PRN (14:55)
--- NOTE | 2016-10-06 15:24 | NUR ---
Inpatient Wound Nurse FLORI met with patient and reviewed instructions for home NPWT. not available at this time but will be in patient's room later in the day. Home vac was set at 100 low continuous suction and precast molder connected so that by time of discharge, unit would have battery life. Patient instructred to keep draped area clean and dry and not saturate with water during shower. Patient was shown how to change canister and importance of keeping gel pack in upper chamber. Patient was instructed that vac would need to be returned to [facility] once discontinued or returned to Wound Center. Patient was instructed to call [facility] for any issues with vac between 4 pm and 9 am. Patient stated understanding of information provided but did not want to sign attached documents, "I'll let my do that, she knows what's going on." Anticipate discharge to home later today with home health RN following within 48 hours and follow up at Wound Center near patient's home next week.
--- NOTE | 2016-10-06 17:10 | PCM.DC.MED ---
Discharge Summary Date of Service Oct 06, 2016 Dates of Hospitalization Date of Hospital Admission Sep 30, 2016 at 19:52 Date of Discharge: Oct 06, 2016 Providers: Admitting Physician: Leon Agudelo MD Primary Care Physician: Fausto Salvador MD Attending Physician: Kb Palmer Diagnosis at Time of Discharge Diagnosis at Time of Discharge # Acute sepsis, present on admission (SIRS- criteria fever at [facility] and white count of 14 on admit). - Blood cultures from 09/30/16 growing Klebsiella Pneumoniae # Acute pelvic abscess (Klebsiella Pneumoniae, Pseudomonas Aeruginosa, Bacteroides Fragilis), present on admission. # Acute urinary tract infection (Klebsiella Pneumoniae), present on admission. # Acute bacteremia (Klebsiella Pneumoniae), present on admission. # High-grade bladder urothelial carcinoma status post colectomy and prostatectomy with ileal conduit post ground level fall prior to this admission with resulting dehiscence of the wound. - Post wound-vac placement # Chronic Type II diabetes mellitus # Ground-level fall, present on admission, active- likely mechanical. # Chronic Anxiety # Chronic Hypothyroidism. Likely acute exacerbation, present on admission. # History of bladder cancer diagnosed June 2016, status post four cycles of chemo and status post definitive cystoprostatectomy on August 31, 2016 # Status post placement of a port on June 17, 2016 which was subsequently removed in August because it was infected with MSSA. Procedures XRay, CTs & MRIs CT head without contrast Impression: 1. No CT evidence of acute intracranial process. Dictated by: Yelena Belcher M.D. CT cervical spine without contrast Impression: 1. No CT evidence of acute trauma. 2. Mild degenerative endplate changes at C5 and C6. 3. Left posterior cervical chain lymph node, probably reactive. Correlate clinically. Dictated by: Yelena Belcher M.D. CT abdomen and pelvis without contrast Impression: 1. Multilobulated pelvic fluid collection status post colectomy. The most distal aspect of the fluid collection contains gas and appears to be in continuity with mildly prominent prostatic urethra. 2. Mild bilateral hydronephrosis and hydroureter status post ureteral diversion. Renal enlargement may be physiologic postop, though partial obstruction is not excluded. The ostomy appears to be unobstructed, although there may be stenosis at the ureteroenteric anastomosis. 3. There is mild pericolonic inflammation in the proximal sigmoid where it is adjacent to one of the pelvic fluid collection. This may be reactive or infectious colitis. 4. There is proximal colonic obstipation, likely from narcotic use. 5. Hepatosplenomegaly with hepatic morphology suggestive of cirrhosis. Spleen size has considerably increased compared to 03/24/2016 where it measured 16.9 cm in AP diameter, now 19.8 cm. 6. Paraesophageal, periceliac, periportal, periaortic, and pelvic adenopathy, worse since prior studies, potentially reactive but concerning for metastatic disease. Dictated by: Yelena Belcher M.D. Brief History As noted in H&P by Dr. Collado: Alexis Knutson is a 51-year-old man with past medical history significant for high- grade bladder urothelial carcinoma status post cystectomy and prostatectomy with ileal conduit who had a protracted stay for about a month in August 2016 with complications from his surgery including intractable pain difficult to control nausea who presented to the [facility] emergency department today due to a fall and subsequent dehiscence of his surgical wound today. 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 He has never had an episode of syncope before. He did not feel any warning to his syncopal episode. He remembers looking up at the ceiling. His fall was not witnessed as . From the next room and found him on the floor with a lot of blood. She was subsequently taken to [facility] by EMS. He was evaluated with a CT of head which showed no acute intracranial process. He was evaluated with a CT of cervical spine which showed no evidence of acute trauma. The patient was transferred here due to proximity to his oncologist. Patient is complaining of severe pain in his abdomen currently. Per nursing report patient's urostomy was completely full of urine when he arrived. When it was checked less than hour later regarding filling up significantly. At [facility] emergency department his vital signs were blood pressure 108/ 52, heart rate of 91, respiratory rate of 18, O2 saturation 90% on room air, temperature 90.8 Fahrenheit. Hospital Course # Sepsis, present on admission. Clinically resolved - SIRS- criteria fever at [facility] ED and white count of 14 on admit. Blood cultures from 09/30 have come back positive for gram-negative rods.Source is likely pelvic fluid collection. - Started patient on Zosyn on morning of 10/01. - ID and urology consulted. - Based on blood cultures for S&S E Coli, switched to PO Levofloxacin for 14 days total until Oct 14. # High-grade bladder urothelial carcinoma status post colectomy and prostatectomy with ileal conduit post ground level fall prior to this admission with resulting dehiscence of the wound. - Post wound-vac placement by interventional radiology during this hospital - Patient needs repeat CT and followup with radiology in about one week after discharge which needs to be setup and arranged by either PCP or urology or wound care clinic # Type II diabetes mellitus - Insulin requiring - Pt has Home Levemir at 65u, pt has been hypoglycemic during admission and the dose of Lantus has been cut back to 2O units. # Ground-level fall, present on admission, active- likely mechanical. - PT evaluated # Proximal Colonic Obstipation-present on admission, resolved. - pt started on bowel regimen # Acute on chronic pain, present on admission. Stable on current home regimen - Continue outpatient pain medications as recommended by palliative care # Anxiety - Continued outpatient medications # Hypothyroidism - TSH significantly elevated while T4 Low - Continued levothyroxine but increased dose to 125 mcg - Will need further close [id number] and repeat labs by PCP in coming days. By day of discharge patient eager to go home and denies any new issues/ complaints Exam Vital Signs (Last) Date Time Temp Pulse Resp B/P Pulse Ox O2 Delivery O2 Flow Rate FiO2 10/06/16 12:27 36.7 82 16 112/71 97 Room Air Exam Lungs CTA bilat CV: RRR Test 09/30/16 22:29 10/01/16 09:34 10/01/16 17:19 10/01/16 17:30 Procalcitonin 1.18ng/mL (0.00-0.08) Hold Matthew Top Tube Received (Received) Lactic Acid Level 0.6mmol/L (0.4-2.0) Total Bilirubin 0.5mg/dL (0.0-1.2) Direct Bilirubin 0.3mg/dL (0.0-0.3) Aspartate Amino Transf (AST/SGOT) 39U/L (0-50) Alanine Aminotransferase (ALT/SGPT) 17U/L (0-44) Alkaline Phosphatase 389U/L (25-150) Pro-B-Type Natriuretic Peptide 1932pg/mL (0-121) Total Protein 6.2g/dL (6.4-8.4) Prothrombin Time 11.2sec (8.1-12.5) Prothromb Time International Ratio 1.05ratio Activated Partial Thromboplast Time 29.4sec (22.8-33.0) Albumin 2.2g/dL (3.4-5.0) Urine Color Yellow (YELLOW) Urine Appearance Hazy (CLEAR,HAZY) Urine pH 6.5 (5.0-8.0) Urine Specific [place] 1.005 (1.003-1.035) Urine Protein Tracemg/dL (NEG,TRACE) Urine Glucose (UA) Negativemg/dL (NEGATIVE) Urine Ketones Negativemg/dL (NEGATIVE) Urine Occult Blood Large (NEGATIVE) Urine Nitrite Positive (NEGATIVE) Urine Bilirubin Negative (NEGATIVE) Urine Urobilinogen Normalmg/dL (NORMAL) Urine Leukocyte Esterase Large (NEGATIVE) Urine RBC 11-50/hpf (0-2) Urine WBC 6-10/hpf (0-5) Urine Epithelial Cells None/hpf (NONE-MOD) Urine Crystals None seen (NONE SEEN) Urine Bacteria Few/hpf (NONE-FEW) Urine Hyaline Casts None/lpf (NONE) Urine Granular Casts None seen (NONE SEEN) Urine Waxy Casts None seen (NONE SEEN) Urine Red Blood Cell Casts None seen (NONE SEEN) Urine White Blood Cell Casts None seen (NONE SEEN) Urine Mucus None seen (None Seen) Urine Trichomonas None seen (NONE SEEN) Urine Yeast None (NONE SEEN) Urinalysis Comment None Urine Culture Reflexed Indicated Test 10/02/16 05:29 10/02/16 10:46 10/04/16 04:51 10/05/16 08:00 Thyroid Stimulating Hormone (TSH) 30.120uIU/mL (0.450-4.500) Free Thyroxine 0.68ng/dL (0.82-1.77) Body Fluid Creatinine 0.99mg/dL Prealbumin 8mg/dL (20-40) White Blood Count 7.9th/mm3 (3.8-10.1) Red Blood Count 3.06mil/mm3 (4.40-5.80) Hemoglobin 8.7g/dL (13.8-17.2) Hematocrit 27.7% (41.0-50.0) Mean Corpuscular Volume 90.5fL (81-100) Mean Corpuscular Hemoglobin 28.4pg (27.0-35.0) Mean Corpuscular Hemoglobin Concent 31.4% (32.0-37.0) Red Cell Distribution Width 16.3% (12.3-15.4) Platelet Count 276bil/L (150-400) Neutrophils (%) (Auto) 80.7% (40-74) Lymphocytes (%) (Auto) 7.9% (14-46) Monocytes (%) (Auto) 7.9% (4-12) Eosinophils (%) (Auto) 1.8% (0-5) Basophils (%) (Auto) 0.1% (0-3) Sodium Level 134mEq/L (134-144) Potassium Level 5.5mEq/L (3.5-5.2) Chloride Level 101mEq/L (97-108) Carbon Dioxide Level 22mmol/L (18-29) Blood Urea Nitrogen 25mg/dL (6-24) Creatinine 0.89mg/dL (0.76-1.27) Estimat Glomerular Filtration Rate 96mL/min (>59) Glucose Level 78mg/dL (60-99) Calcium Level 8.1mg/dL (8.5-10.1) Microbiology Results CHANO CULTURE BLOOD Preliminary 10/01/16-1151 Organism 1 POSITIVE BLOOD CULTURE GRAM STAIN RESULT GRAM NEGATIVE RODS BC BOTTLE Isolated from Anaerobic Bottle of Set Drawn DATE CALLED: 10/01/16 TIME CALLED: 1149 CALLED BY: LENA FLOOR/DOCTOR: SOULEYMANE Rod BC READ BACK Y TYPE OF DRAW PERIPHERAL DRAW TIME OF POSITIVITY 1118 Microbiology 09/30/16 Blood Culture, Received Pending Discharge Medications Discharge Medications Furosemide (Furosemide) 40 Mg Tablet 40 MG PO DAILY (Reported) Insulin Glargine (Lantus U100 Insulin Vial) 100 Unit/Ml Vial 20 UNIT SUBQ MORNING Prescribed by: KB PALMER MD Levofloxacin (Levaquin) 750 Mg Tablet 750 MG PO DAILYAC Prescribed by: KB PALMER MD Levothyroxine (Levothyroxine) 125 Mcg Tablet 125 MCG PO DAILYAC Prescribed by: KB PALMER MD Methadone (Methadone) 5 Mg Tablet 20 MG PO TID (Reported) Potassium Chloride ER (Potassium Chloride ER) 20 Meq Tablet.er 20 MEQ PO DAILY ( Reported) TAKE WITH FOOD Sertraline HCl (Zoloft) 20 Mg/1 Ml Oral.conc 100 MG PO DAILY (Reported) As needed Alprazolam (Alprazolam) 1 Mg Tablet 1 MG PO HS PRN PRN For Anxiety (Reported) Dronabinol (Marinol) 5 Mg Capsule 5 MG PO TID PRN PRN For Bowel Movement Prescribed by: LOLA MICHAELS DO Hydromorphone (Hydromorphone) 8 Mg Tablet 8 MG PO Q3H PRN PRN Pain Prescribed by: DIPESH SIMPSON MD Lorazepam (Lorazepam) 0.5 Mg Tablet 0.5 MG PO TID PRN PRN For Anxiety or Agitation (Reported) Metoclopramide Inj (Metoclopramide Inj) 5 Mg/1 Ml Vial 5 MG PO Q6H PRN PRN For Nausea/Vomiting Prescribed by: LOLA MICHAELS DO Olanzapine (Olanzapine) 2.5 Mg Tablet 2.5 MG PO Q4 PRN PRN For Nausea Prescribed by: LOLA HENAO MD Additional med instructions Home dose of Levemir at 65u, due to hypoglycemia during admission the dose of your long acting insulin been cut back to 2O units to start and can increase per your PCP. Followup Plan Disposition: Home with home health Follow-up plan 1. Followup with primary care provider in 2-4 days - Further titration of insulin and management of diabetes - Further followup and management of hypothyroidism - Further followup and management of the wound as outpatient 2. Followup at wound care as scheduled. 3. Follow up with urology (Dr. Fisher) in 1-2 weeks. Discharge Diet: Diabetic Discharge Activity: Home Health Phyical Therapy Patient Instructions Seek immediate medical attention if any new or worsening signs or symptoms occur. Increase Home Health Nursing to 5 days per week. Home health nursing to flush the abdominal wound drain with 10-20 cc of normal saline twice daily Will need to followup with interventional radiology around 10/12/16 to reassess the wound drain and consideration of removing it at that time. This followup should be setup either by your primary care provider, urology or by the wound care clinic. Follow-up Provider: Fausto Salvador MD Provider: Haven Fisher MD Time spent 40 min copies to: Haven Fisher MD; Fausto Salvador MD, Masoud Oct 06, 2016 17:10
--- NOTE | 2016-10-06 18:21 | NUR ---
Discharge note- Patient medicated for abd. pain about every 3-4 hours with ordered pain meds which have been effective for most of discomfort. Tolerating diet and fluids. Wound Vac delivered by wound care, I instructed her how to flush T tube drain with normal saline at home. Patient discharged to home with and personal belongings.
== END 2016-10-06 17:59 | disposition home health service (06) | DRG 862 ==
LOC: OSC 19:52
PROVIDERS: ADMIT Internal Medicine; ATTEND Hospitalist
PROC: 0W9G30Z Drainage of Peritoneal Cavity with Drainage Device, Percutaneous Approach (ICD-10-PCS; principal; 2016-10-02)
DX: T81.4XXA Infection following a procedure, initial encounter (principal); A41.59 Other Gram-negative sepsis; K65.1 Peritoneal abscess; T81.31XA Disruption of external operation (surgical) wound, not elsewhere classified, initial encounter; N39.0 Urinary tract infection, site not specified; N13.6 Pyonephrosis; B96.1 Klebsiella pneumoniae [K. pneumoniae] as the cause of diseases classified elsewhere; E11.9 Type 2 diabetes mellitus without complications; F41.9 Anxiety disorder, unspecified; E03.9 Hypothyroidism, unspecified; C67.9 Malignant neoplasm of bladder, unspecified; W18.30XA Fall on same level, unspecified, initial encounter; Y93.89 Activity, other specified; Y92.010 Kitchen of single-family (private) house as the place of occurrence of the external cause; Z79.4 Long term (current) use of insulin; Z43.6 Encounter for attention to other artificial openings of urinary tract; Z51.5 Encounter for palliative care

== ENCOUNTER 2016-10-27 00:31 | Day surgery (SDC) | payer OTHER ==
[~2016-10-27] VITALS: Ht 182.9 cm; Wt 113.0 kg
[~2016-10-27 00:31] MED LIST changes: -INSU100I25 SQ; +INSU100V7 SUBQ; -INSU200I SQ; -LEVO100T6 PO; +LEVO125T6 PO; +LEVO750T9 PO; -MTH10T PO; -OLAN2.5T20 PO; +OLAN2.5T28 PO; -OLAN5TAB PO; -OXYB5TAB10 PO
[2016-10-27 08:00] VITALS: BP 115/65; PULSE 70; RESP 16; O2SAT 99
--- NOTE | 2016-10-27 08:00 | NUR ---
ADMISSION NOTE MALE PT ADMITTED FOR ABD DRAIN REMOVAL. DISCUSSED PLAN OF CARE WITH PT AND . SEE ADMIT AND FLOW SHEET
[2016-10-27] MEDS ORDERED: fentaNYL-PF 50 mCg/mL 2 mL Inj ONE (11:51)
[2016-10-27 12:00] VITALS: BP 128/64; PULSE 86; RESP 18; O2SAT 98
--- NOTE | 2016-10-27 12:01 | DRSVH ---
PROCEDURE: CT ABDOMEN AND PELVIS WITH CONTRAST ([id number]) INDICATIONS: ABCESS DRAIN TECHNIQUE: After the administration of oral and intravenous contrast, 5 mm thick sections acquired from the diap hragms to the symphysis. 5 mm thick coronal and sagittal reformats were performed. For radiation do se reduction, the following was used: automated exposure control, adjustment of mA and/or kV accordi ng to patient size. COMPARISON: [facility], CT, CT KUB, 10/17/2016, 11:16. [facility], CT, CT AB CESS DRAIN PERITONEAL, 10/02/2016, 9:11. [facility], CT, CT ABD PELVIS W&WO CON IVP, 10/01, 19:01. Outside Film, CT, CT ABD PELVIS W CON, 09/30/2016, 7:23. FINDINGS: Image quality: Excellent. ABDOMEN: Lung bases: Lung bases are clear. Heart size is normal. Solid organs: Liver and spleen are normal in size and enhancement. Gallbladder is unremarkable. Bi liary system is non-dilated. Pancreas enhances normally. No adrenal nodules. The kidneys demonstrat e overall normal size. There is mild left hydronephrosis. The ureters are nondilated throughout their course. Peritoneum and bowel: Stomach, small bowel, and colon loops are normal in caliber and wall thickness . A large amount of stool is present in the rectal vault. A mid pelvic abscess drain is present. Ther e is no residual fluid around this drain. There is a low density, circumscribed 3.3 x 6.0 cm fluid co llection within the anterior left hemipelvis. This is slightly increased in size from 3.1 x 5.7 cm on the study dated 10/17/16. No pneumoperitoneum. No new suspicious abdominal fluid collection. Nodes and vessels: There is an enlarged right iliac chain lymph node which measures 11 mm in diameter . This is decreased from 13 mm in diameter on the study dated 10/17/16. Aorta and inferior vena cava a re normal in caliber. Miscellaneous: No ventral hernias. PELVIS: Genitourinary: There is a right lower quadrant ureterostomy. Miscellaneous: No inguinal hernias or adenopathy. Bones: No suspicious bony lesions. No vertebral body compression fractures. IMPRESSION: 1. Resolution of the deep pelvic abscess. 2. Slight increase in the size of the circumscribed left hemipelvic fluid collection. Per the referri ng clinician, this likely represents a small lymphocele. No rim enhancement to suggest abscess. 3. Mild left hydronephrosis. 4. Enlarged right iliac chain lymph node decreased in size when compared with the prior study dated . Dictated by: Lois Watt M.D. on 10/27/2016 at 11:46 Approved by: Lois Watt M.D. on 10/27/2016 at 12:00
[2016-10-27] MEDS ORDERED: fentaNYL-PF 50 mCg/mL 2 mL Inj IVPUSH PRN (12:10)
[2016-10-27 12:12] VITALS: BP 125/59; PULSE 85; RESP 16; O2SAT 98
[2016-10-27 12:29] VITALS: BP 134/65; PULSE 84; RESP 16; O2SAT 99
--- NOTE | 2016-10-27 12:30 | NUR ---
MARYBETH Patient having 9/10 abdominal pain. Medicated with fentanyl 50 mcg prior to drain removal at bedside by MD. No problems noted with removal. Dressing applied to site. Patient fully awake and oriented. States medication "took the edge off" and reports pain at 4/10. Discharge instructions reviewed with patient and , written information given and questions answered.
== END 2016-10-27 23:59 | disposition home or self-care (01) ==
LOC: SOUO 00:31
PROVIDERS: ATTEND Radiology Vascular & Interventional Radiology
DX: I89.8 Other specified noninfective disorders of lymphatic vessels and lymph nodes (principal); Z85.51 Personal history of malignant neoplasm of bladder; Z48.03 Encounter for change or removal of drains; N13.30 Unspecified hydronephrosis
CPT/HCPCS: 74177; J3010; Q9967